=== PATIENT | female | born 1950 | race Caucasian/White ===

== ENCOUNTER → 2018-05-12 16:20 | Outpatient (CLI) | payer MEDICARE, SELFPAY | PROVIDERS: Family Provider Family Medicine; PCP Family Medicine; Visit Provider Urology | DX: R33.9 Retention of urine, unspecified (principal) | CPT/HCPCS: 76770 ==

== ENCOUNTER 2018-06-22 09:28 | Day surgery (SDC) | payer MEDICARE, SELFPAY ==
[2018-06-22] VITALS (7 sets, daily range): BP systolic 117–168; BP diastolic 75–107; PULSE 81–101; RESP 16; TEMP 36.1–37.1; O2SAT 93; BMI 28.2
[2018-06-22 10:16] LABS: Bedside Glucose 139 mg/dL (70-110)
[2018-06-22] MEDS: Vancomycin IV 1,000 MG/200 ML BAG 200 MG IV (11:00)
--- NOTE | 2018-06-22 11:00 | RAD_ITS ---
STUDY: X-RAY - PELVIS REASON FOR EXAM: Female, 68 years old. Interstimulation therapy. TECHNIQUE: Fluoroscopy and 1 crosstable lateral view of the pelvis was obtained under direction, supervision and review of the attending physician. Fluoroscopy time: 15.3 seconds. Dose: 4.0 mGy COMPARISON: None available. FINDINGS: Fluoroscopy and single cross table lateral fluoroscopic image of the sacrum and coccyx show a neurostimulator wire with electrodes overlying the mid and posterior sacrum and projecting over the bowel gas of the rectosigmoid colon. Radiologist not present intraoperatively. Please see operative report for details. RAD/Pelvis 1 or 2 Views IMPRESSION: Please see operative report for details. Electronically Signed: Akshat Mares, at 15:33 EDT Tel , Service support ,
--- NOTE | 2018-06-22 11:15 | RAD_ITS ---
STUDY: X-RAY - PELVIS REASON FOR EXAM: Female, 68 years old. Interstimulation therapy. TECHNIQUE: Fluoroscopy and 1 crosstable lateral view of the pelvis was obtained under direction, supervision and review of the attending physician. Fluoroscopy time: 15.3 seconds. Dose: 4.0 mGy COMPARISON: None available. FINDINGS: Fluoroscopy and single cross table lateral fluoroscopic image of the sacrum and coccyx show a neurostimulator wire with electrodes overlying the mid and posterior sacrum and projecting over the bowel gas of the rectosigmoid colon. Radiologist not present intraoperatively. Please see operative report for details. RAD/O.R. Fluoro for C-Arm IMPRESSION: Please see operative report for details. Electronically Signed: Akshat Mares, at 15:33 EDT Tel , Service support ,
--- NOTE | 2018-06-22 12:48 | DCINST_ITS ---
Discharge Diet: No Restrictions Discharge Activity: May not drive while taking narcotic pain medications., - - no tub bathing. ok to sponge bathe. Call your doctor if your incision/area has: Continuous Slow Oozing, Sudden Increased Bleeding, Increased Pain/ Swelling, Increased Redness, Foul Smelling Discharge, Swelling at the incision site Call your doctor if you observe: Fever of 101 or Higher, Inability to have a bowel movement, Shortness of breath, Chest pain, Calf discomfort, Uncontrolled pain Suture Line Care: Avoid Pulling/Pushing, Avoid Pinching/Bending Allergies/Adverse Reactions: Allergies quinapril [From Accupril] Allergy (Verified 06/16/18 10:36) Rash Medications to take at Discharge Metformin HCl [Glucophage] 1 tab PO BID 09/26/17 Amlodipine Besylate [Norvasc] 10 mg PO DAILY 06/16/18 Cholecalciferol (Vitamin D3) [Vitamin D3] 2,000 unit PO DAILY 06/16/18 Hydrochlorothiazide [Hctz] 12.5 mg PO DAILY 06/16/18 Losartan Potassium [Cozaar] 100 mg PO DAILY 06/16/18 Cephalexin [Keflex] 500 mg PO Q12 3 Days #6 cap 06/22/18 Oxycodone HCl/Acetaminophen [Percocet 5/325] 1 - 2 tab PO Q6H PRN PRN 7 Days #30 tab 06/22/18 The following prescriptions were given: Oxycodone HCl/Acetaminophen [Percocet 5/325] 1 - 2 tab PO Q6H PRN PRN 7 Days #30 tab PRN Reason: Pain Cephalexin [Keflex] 500 mg PO Q12 3 Days #6 cap Primary Care Physician: Cabrera Taylor III, MD [Primary Care Provider] - Test Results: Test results from this visit will be discussed in further detail at your follow- up appointment, if applicable. Please Follow Up With: Emi Gallegos MD When: 2-3 days in office Proposed Discharge Date: 06/22/18
--- NOTE | 2018-06-22 13:04 | PCM.IMDPSTOP ---
Immediate Post-Op Note Date of Procedure: 06/22/18 Primary Surgeon/Physician: Emi Gallegos MD business development associate: Emi Gallegos Pre-Operative Diagnosis: urinary retention, urge incontinence, neurogenic bladder Post-Operative Diagnosis: same Surgery/Procedure Performed:: Interstim Stage 1 Description of Surgical Findings:: good tony on all 4 leads, no toe. Estimated Blood Loss: 5cc Specimen's removed: none Type of Anesthesia:: Local MAC - Admit VTE Documentation VTE Present on Admission: No VTE Pharm Prophylaxis ordered?: No
--- NOTE | 2018-06-24 18:10 | PCM.OPRPT ---
Problem List (1) Urinary retention Status: Acute (2) Neurogenic bladder Status: Acute (3) Urge incontinence Status: Acute Report of Operation Date of Procedure: 06/22/18 Pre-Operative Diagnosis: urinary retention, urge incontinence, neurogenic bladder Post-Operative Diagnosis: same Surgery/Procedure Performed:: Interstim Stage 1 Description of Surgical Findings:: good tony on all 4 leads, no toe. actuarial internship: Emi Gallegos Type of Anesthesia:: Local MAC Specimen's removed: none Estimated Blood Loss (mL): 5cc Description of Procedure: The patient is a 68-year-old female who came to my office for evaluation and treatment of urinary incontinence. After undergoing urodynamics, pelvic examination and cystoscopy, it was clear that the patient had a diagnosis of neurogenic bladder with urinary retention and urge incontinence. After discussing all the risks benefits and alternatives with the patient and her family, we decided to proceed with a trial of InterStim. The patient was taken to the operating room and placed in the prone position in the operating room table. All dependent portions of her body were appropriately padded and she was secured to the table. Anesthesia monitored the head neck airway IV access and vital signs throughout the case. Once anesthesia was appropriately administered the patient was prepped and draped in usual sterile fashion. At this time using fluoroscopic visualization, the S3 foramen was identified and intubated using the needle. It was stimulated in a good tony response was obtained. The obturator was placed into the needle which was then removed. A small incision was made around the guide and the dilator was then used to dilate an area appropriate for the placement of the lead. At this time the obturator from the dilator was removed and the lead was inserted in a twisting fashion. All 4 leads were tested and a good tony response without toe response was obtained. At this time the sheath was removed leaving the lead in its permanent location. Fluoroscopic evaluation revealed minimal curvature to the lead however good response was achieved in all 4 leads. The location of the boot was then determined and anesthetized using lidocaine. A pocket was then formed using a knife and Bovie cautery. Hemostatic control was obtained. A tunneler was then used to place the wire into the area of the pocket. The boot was attached and the lead was secured into position in the lead extension. This was closed using Prolene. The lead extension was then turned tunneled in a cephalad position and was then attached to the temporary battery. This was secured in an appropriate fashion to the patient's back. Patient was then awakened and taken to the recovery room in good condition. There were no complications during this procedure. Grafts/Implants Used: Interstim Stage 1 - Complications none - Admit VTE Documentation VTE Present on Admission: No VTE Mechan Device Prophylaxis: None VTE Pharm Prophylaxis ordered?: No Reason prophylaxis not ordered:: Treatment Not Indicated
== END 2018-06-22 14:22 | disposition home or self-care (01) ==
LOC: SDC 09:30 → AC 09:31
PROVIDERS: Family Provider Family Medicine; PCP Family Medicine; Referring Provider Urology; Visit Provider Urology
PROC: (CPT 64581; principal; 2018-06-22 10:45)
DX: N31.9 Neuromuscular dysfunction of bladder, unspecified (principal); N39.41 Urge incontinence; R33.9 Retention of urine, unspecified; R35.0 Frequency of micturition; R35.1 Nocturia; N28.1 Cyst of kidney, acquired; I10 Essential (primary) hypertension; E11.9 Type 2 diabetes mellitus without complications; F17.200 Nicotine dependence, unspecified, uncomplicated; Z79.84 Long term (current) use of oral hypoglycemic drugs; Z79.82 Long term (current) use of aspirin; Z79.899 Other long term (current) drug therapy; Z86.73 Personal history of transient ischemic attack (TIA), and cerebral infarction without residual deficits
CPT/HCPCS: 64581; 72170; 76000; 82962; J7120; C1778

== ENCOUNTER 2018-07-06 06:12 | Day surgery (SDC) | payer MEDICARE, SELFPAY ==
[2018-07-06] VITALS (7 sets, daily range): BP systolic 104–126; BP diastolic 54–89; PULSE 81–90; RESP 16–18; TEMP 36.6–36.7; O2SAT 92–95; BMI 28.2
[2018-07-06 07:11] LABS: Bedside Glucose 133 mg/dL (70-110)
[2018-07-06] MEDS: Vancomycin IV 1,000 MG/200 ML BAG 200 MG IV (07:56)
--- NOTE | 2018-07-06 09:21 | DCINST_ITS ---
Discharge Diet: No Restrictions Discharge Activity: May Shower Additional Activity Instructions:: no swimming or tub bathing, no hot tubs. minimal twisting and bending for the next week Call your doctor if your incision/area has: Continuous Slow Oozing, Sudden Increased Bleeding, Increased Pain/ Swelling, Increased Redness, Foul Smelling Discharge, Swelling at the incision site Call your doctor if you observe: Fever of 101 or Higher, Inability to urinate, I nability to have a bowel movement Suture Line Care: Avoid Pulling/Pushing Allergies/Adverse Reactions: Allergies quinapril [From Accupril] Allergy (Verified 06/16/18 10:36) Rash Medications to take at Discharge Metformin HCl [Glucophage] 1 tab PO BID 09/26/17 Amlodipine Besylate [Norvasc] 10 mg PO DAILY 06/16/18 Cholecalciferol (Vitamin D3) [Vitamin D3] 2,000 unit PO DAILY 06/16/18 Hydrochlorothiazide [Hctz] 12.5 mg PO DAILY 06/16/18 Losartan Potassium [Cozaar] 100 mg PO DAILY 06/16/18 Cephalexin [Keflex] 500 mg PO Q12 3 Days #6 cap 07/06/18 The following prescriptions were given: Cephalexin [Keflex] 500 mg PO Q12 3 Days #6 cap Primary Care Physician: Cabrera Taylor III, MD [Primary Care Provider] - Test Results: Test results from this visit will be discussed in further detail at your follow- up appointment, if applicable. Please Follow Up With: Emi Gallegos MD When: next week, call for appt Proposed Discharge Date: 07/06/18
--- NOTE | 2018-07-06 09:21 | PCM.IMDPSTOP ---
Immediate Post-Op Note Date of Procedure: 07/06/18 Primary Surgeon/Physician: Emi Gallegos MD trim master operator: andrew Pre-Operative Diagnosis: Urinary retention , urinary urge incontinence, nocturia. Post-Operative Diagnosis: same Surgery/Procedure Performed:: Interstim Stage 2 Description of Surgical Findings:: IPG placed in pocket. Question of extension wire not identified when drapes removed, not seen on fluouroscopy of the patient. Estimated Blood Loss: 2cc Specimen's removed: none Type of Anesthesia:: Local MAC Special Medications: vancomycin - Admit VTE Documentation VTE Present on Admission: Yes VTE Mechan Device Prophylaxis: SCD's VTE Pharm Prophylaxis ordered?: No Reason prophylaxis not ordered:: Treatment Not Indicated
--- NOTE | 2018-07-06 09:26 | OP.PN_ITS ---
Immediate Post-Op Note Date of Procedure: 07/06/18 Primary Surgeon/Physician: Emi Gallegos MD last dipper: andrew Pre-Operative Diagnosis: Urinary retention , urinary urge incontinence, nocturia. Post-Operative Diagnosis: same Surgery/Procedure Performed:: Interstim Stage 2 Description of Surgical Findings:: IPG placed in pocket. Question of extension wire not identified when drapes removed, not seen on fluouroscopy of the patient. Estimated Blood Loss: 2cc Specimen's removed: none Type of Anesthesia:: Local MAC Special Medications: vancomycin - Admit VTE Documentation VTE Present on Admission: Yes VTE Mechan Device Prophylaxis: SCD's VTE Pharm Prophylaxis ordered?: No Reason prophylaxis not ordered:: Treatment Not Indicated
--- NOTE | 2018-07-06 09:28 | PCM.OPRPT ---
Problem List (1) Nocturia Status: Acute (2) Neurogenic bladder Status: Acute (3) Urge incontinence Status: Acute (4) Urinary retention Status: Acute Report of Operation Date of Procedure: 07/06/18 Pre-Operative Diagnosis: Urinary retention , urinary urge incontinence, nocturia. Post-Operative Diagnosis: same Surgery/Procedure Performed:: Interstim Stage 2 Description of Surgical Findings:: IPG placed in pocket. Question of extension wire not identified when drapes removed, not seen on fluouroscopy of the patient. educational therapist: andrew Type of Anesthesia:: Local MAC Special Medications: vancomycin Specimen's removed: none Estimated Blood Loss (mL): 2cc Description of Procedure: The patient is a 68-year-old female who successfully passed stage I InterStim over the past 2 weeks. She has had a decrease in her postvoid residual down to 64 cc. She has had extremely successful decrease in her nocturia and urge incontinence as well. She presents today for implantation of her permanent IPG. All risks benefits and alternatives were discussed preoperatively with the patient and her daughter. The patient was taken to the operating room and placed on the operating room table in a prone position. She was appropriately secured to the table and all dependent portions of her body were padded appropriately. Anesthesia monitored the head, neck, airway, IV access and vital signs throughout the case. Once anesthesia was appropriately administered the patient was prepped and draped in usual sterile fashion. The lead extension was prepped and was draped out of the field. The temporary battery had been cut from the extension wire prior to prepping. At this time the incision was anesthetized with lidocaine a total of 14 cc was used. The incision was then opened using hemostats and Metzenbaums to cut the Vicryl sutures. The boot was identified and the sutures were removed. Using the torque wrench the lead extension was removed without difficulty and taken from the field. The pocket was increased in size using both blunt dissection and Bovie cautery. Hemostatic control was achieved. The lead was dried and placed into the IPG and screwed into position. The IPG was then passed into the pocket without difficulty and impedances were found to be none. The pocket was closed with both 3-0 interrupted suture in the deep dermis followed by 4-0 subcuticular closure of the wound. The area was then cleaned and dried and Dermabond was placed. At this time the drapes were removed and the lead extension wire was not identified. It was palpable beneath the patient's skin. Fluoroscopy was brought into the room and it was not identifiable within the patient. The drapes were searched and the lead extension was not identified. The patient was then awakened and taken to the recovery room in good condition. I discussed the matter of the lead extension with the patient's daughter. I will send her home on antibiotics and we will monitor her very closely for any evidence of infection or abnormality with IPG site. No other issues with the case. Grafts/Implants Used: IPG Interstim - Complications none - Admit VTE Documentation VTE Present on Admission: Yes VTE Mechan Device Prophylaxis: SCD's VTE Pharm Prophylaxis ordered?: No Reason prophylaxis not ordered:: Treatment Not Indicated
== END 2018-07-06 10:24 | disposition home or self-care (01) ==
LOC: SDC 06:15 → AC 06:16
PROVIDERS: Family Provider Family Medicine; PCP Family Medicine; Referring Provider Urology; Visit Provider Urology
PROC: (CPT 64590; principal; 2018-07-06 07:50)
DX: N31.9 Neuromuscular dysfunction of bladder, unspecified (principal); N39.41 Urge incontinence; R33.9 Retention of urine, unspecified; R35.1 Nocturia; I10 Essential (primary) hypertension; E78.00 Pure hypercholesterolemia, unspecified; E11.9 Type 2 diabetes mellitus without complications; F17.200 Nicotine dependence, unspecified, uncomplicated; Z79.82 Long term (current) use of aspirin; Z79.84 Long term (current) use of oral hypoglycemic drugs; Z79.899 Other long term (current) drug therapy; Z86.73 Personal history of transient ischemic attack (TIA), and cerebral infarction without residual deficits
CPT/HCPCS: 00400; 64590; 76000; 82962; J7120; C1767

== ENCOUNTER 2018-09-08 00:03 | Inpatient (IN) | payer MEDICARE, SELFPAY ==
[2018-09-08] VITALS (13 sets, daily range): BP systolic 93–156; BP diastolic 53–90; PULSE 65–102; RESP 16–22; TEMP 36.3–37.2; O2SAT 92–98; BMI 28.6; BMI 28.7
[2018-09-08] MEDS: fentaNYL 100 MCG/2 ML Ampul 25 MCG IV ×2 (00:48→03:23)
--- NOTE | 2018-09-08 01:20 | RAD_ITS ---
HISTORY: FALL LAST NIGHT. PROXIMAL-MID LEFT ARM PAIN. COMPARISON: None FINDINGS: XR left Humerus Min 2 Views: Generalized bony demineralization. Recent fracture of the proximal left humerus at the greater tuberosity region is suspected. The left humeral neck appears intact. No dislocation. The distal left humerus is intact. RAD/Humerus min 2 Views IMPRESSION: 1. Recent fracture of the greater tuberosity region of the proximal left humerus is suspected. 2. Recommend more detailed exam with formal left shoulder exam. at 0217 Reported and signed by: Travis Carmichael MD Electronically Signed: Travis Carmichael, at 2:16 EST Tel , Service support ,
--- NOTE | 2018-09-08 01:20 | RAD_ITS ---
HISTORY: FALL LAST NIGHT EXAM: XR Chest 1 View: COMPARISON: None FINDINGS: Shallow inspiration. Normal heart size. No vascular congestion, pleural effusion, or acute pulmonary infiltration. No pneumothorax. Atherosclerotic thoracic aorta. IMPRESSION: No acute cardiopulmonary disease. at 0213 Reported and signed by: Travis Carmichael MD Electronically Signed: Travis Carmichael, at 2:12 EST Tel , Service support , RAD/Chest 1 View
--- NOTE | 2018-09-08 01:20 | RAD_ITS ---
HISTORY: FALL LAST NIGHT. LEFT LEG PAIN. COMPARISON: None FINDINGS: XR left tibia/fibula 3 views Generalized bony demineralization. No fracture or dislocation. Calcified vein phlebolith and benign soft tissue calcifications. IMPRESSION: Negative for fracture or acute osseous abnormality. at 0209 Reported and signed by: Travis Carmichael MD Electronically Signed: Travis Carmichael, at 2:07 EST Tel , Service support , RAD/Tibia & Fibula 2 Views
--- NOTE | 2018-09-08 01:20 | RAD_ITS ---
HISTORY: FALL LAST NIGHT. PROXIMAL LEFT HIP PAIN COMPARISON: None FINDINGS: AP Pelvis: 1 view. Generalized bony demineralization. Acute, mildly displaced intertrochanteric fracture of the proximal left femur. No hip dislocation. The right hip appears intact. The SI joints are not widened. Focal soft tissue calcification at the upper margin of the left greater trochanter compatible with chronic trochanteric bursitis. Sacral neurostimulator electrode with left side metallic generator which overlies the left ilium. The electrode appears intact. RAD/Pelvis 1 or 2 Views IMPRESSION: Mildly displaced left intertrochanteric fracture. at 0200 Reported and signed by: Travis Carmichael MD Electronically Signed: Travis Carmichael, at 1:59 EST Tel , Service support ,
--- NOTE | 2018-09-08 01:20 | RAD_ITS ---
HISTORY: FALL LAST NIGHT. PROXIMAL LEFT HIP PAIN. COMPARISON: None FINDINGS: XR left femur 4 views Mildly displaced intertrochanteric fracture of the proximal left femur. No hip dislocation. Intact distal left femur. Left hemipelvis sacral neurostimulator in place. Focal soft tissue calcification at the upper margin of the left greater trochanter compatible with chronic calcific trochanteric bursitis. Atherosclerotic calcifications. RAD/Femur Min 2 Views IMPRESSION: 1. Mildly displaced intertrochanteric fracture of the proximal left femur. 2. Additional chronic changes, details above. at 0205 Reported and signed by: Travis Carmichael MD Electronically Signed: Travis Carmichael, at 2:03 EST Tel , Service support ,
--- NOTE | 2018-09-08 01:55 | EKG12_ITS ---
Test Reason : FALL Blood Pressure : / mmHG Vent. Rate : 092 BPM Atrial Rate : 092 BPM P-R Int : 144 ms QRS Dur : 088 ms QT Int : 392 ms P-R-T Axes : 101 055 079 degrees QTc Int : 484 ms Sinus rhythm with Premature supraventricular complexes Nonspecific T wave abnormality Abnormal ECG Confirmed by BETTY SAUCEDO, CARLOS ([id number]), primer expeditor and drier MARISSA CHUNG ([id number]) on 09/10/2018 3:22:27 PM Referred By: MARIBELL Confirmed By:CARLOS HERNÁNDEZ MD
[2018-09-08 02:13] LABS: Absolute Lymphocyte Count 2.21 X10^3/ul (0.83-4.51); Absolute Neutrophil Count 4.1 X10^3/uL (2.0-7.7); Basophil# 0.04 X10^3/uL; Basophil% 0.5 % (0-1); Eosinophil# 0.21 X10^3/uL; Eosinophils% 2.9 % (0-5); Hematocrit 42.9 % (37-47); Lymphocyte # 2.21 X10^3/ul (4.0); Lymphocyte % 30.3 % (19-41); Mean Corpuscular Hgb 32.8 pg (27.0-32.0); Mean Corpuscular Volume 93.7 fL (81-99); Mean Platelet Vol. 11.5 fl (6.2-12.0); Monocyte# 0.68 X10^3/uL; Monocyte% 9.3 % (0-10); Neutrophil # 4.13 X10^3/uL (2.7-7.7); Neutrophil % 56.6 % (47-70); Platelet Count 253 K/mm3 (150-450); RBC Distribution Width CV 13.2 % (11.6-14.6); RBC Distribution Width SD 43.8 fl (35.1-43.9); Red Blood Count 4.58 M/mm3 (4.2-5.4); White Blood Count 7.3 K/mm3 (4.4-11.0)
[2018-09-08 02:14] LABS: POSITIVE COUNT NO; POSITIVE DIFFERENTIAL NO; POSITIVE MORPHOLOGY NO
[2018-09-08 02:15] LABS: International Normalized Ratio 0.9; Prothrombin Time (Protime)PT. 12.3 SECONDS (11.7-14.9)
[2018-09-08 02:16] LABS: Partial Thromboplast Time 37.3 Seconds (24.1-36.2)
[2018-09-08 02:22] LABS: BUN 15 mg/dL (7-18); Creatinine, Serum 0.58 mg/dL (0.55-1.02); EST Glomerular Filtration Rate 109 mL/min (>60); Estimated Creatinine Clearance 45.85 ml/min; Glucose 124 mg/dL (74-106)
[2018-09-08 02:23] LABS: Anion Gap 9 (5-15); BUN/Creat Ratio 25.8 RATIO (10-20); Chloride 101 mmol/L (98-107); Est Glom Filt Rate - Afr Amer 132 mL/min (>60); Potassium 3.7 mmol/L (3.5-5.1); Sodium Level 139 mmol/L (136-145)
--- NOTE | 2018-09-08 02:36 | ED.DCSUM_ITS ---
- ER Visit Summary Date of Service: 09/08/18 Chief Complaint: Fall History of Present Illness: The patient is a 68 F who was standing in her kitchen tonight and bent over to sampler pickup her cane off the floor and fell backwards. She has pain in her left arm and left leg. She did not get up and ambulate. She did strike her head but denies headache or vision changes. Physical Examination: Vital signs grossly unremarkable. Patient is lying in bed no acute distress. Head neck examination reveals no external sign of trauma. Heart is regular rate and rhythm. Lung sounds are with mild expiratory wheezes. Abdomen is soft nontender. Left upper extremity examination reveals tenderness of the proximal humerus. No tenderness over the clavicle. There is no tenderness of the elbow, forearm, wrist, or hand. She has strong distal pulses and can wiggle fingers. Left lower extreme examination was tenderness in the mid left thigh. She has strong distal pulses. She does have pain with logrolling. Test Results: Chest x-ray shows no acute disease. Left humerus shows a recent fracture of the greater tuberosity of the proximal humerus to be suspected. Pelvis x-ray shows a mildly displaced left intertrochanteric fracture. Left femur x-ray shows the same with no other acute findings. Left tib-fib x-ray shows no acute fracture. EKG is sinus at 92 with lateral T wave flattening. CBC and chemistry studies unremarkable. Coags normal. Emergency Department Course and Treatment: Patient was given fentanyl and Zofran. Test results are discussed with patient and family at bedside. She will be placed in a sling and swath. I will speak with orthopedics as well as hospitalist for admission. Treatment Plan: [] Disposition: Admit Impression: 1. Mechanical fall 2. Left greater tuberosity humerus fracture 3. Left intertrochanteric hip fracture This note was generated with [employer] dictation software. It may contain incorrect words, spelling, and punctuation that were not noted in review of the chart prior to signing ED Disposition - Plan for ED Patient: Chief Complaint: Fall Referrals: Cabrera Taylor III, MD [Primary Care Provider] -
--- NOTE | 2018-09-08 02:40 | PCM.HP.STD ---
Problem List (1) Intertrochanteric fracture of left hip Status: Acute (2) Left humeral fracture Status: Suspected (3) HTN (hypertension) Status: Chronic History of Present Illness Date of Admission: 09/08/18 Chief Complaint: Fall The patient is a 68 year old F with a significant history of hypertension; diabetes; neurogenic bladder who presented with a fall. Patient was walking with a cane. Headache came failed seton around bent down to get her cane and then fell backwards hitting her left side onto a counter. Reportedly she hit her head. She reports excruciating pain in her left arm and the left hip. X-ray showed mildly displaced intertrochanteric fracture of the proximal left femur. Left humerus x-ray was suspicious for fracture of greater tuberosity. Emergency department doctor discussed the case with orthopedic surgery, Dr. Vasquez. Per emergency department doctor, Dr. Kapoor, orthopedic surgeon will see patient in a.m. Past Medical History Past Medical History (Chronic Problems): Chronic Problems (Last Updated 09/08/18 @ 03:35 by Dc Reeder MD) HTN (hypertension) (Chronic) Medical History: Medical History (Last Reviewed 09/08/18 @ 03:58 by Dc Reeder MD) Diabetes E11.9 Neurogenic bladder N31.9 Allergies quinapril [From Accupril] Allergy (Verified 09/08/18 00:04) Rash Home Medications: Ambulatory Orders Medication Instructions Recorded Metformin HCl [Glucophage] 1 tab PO BID 09/26/17 Amlodipine Besylate [Norvasc] 10 mg PO DAILY 06/16/18 Cholecalciferol (Vitamin D3) 2,000 unit PO DAILY 06/16/18 [Vitamin D3] Hydrochlorothiazide [Hctz] 12.5 mg PO DAILY 06/16/18 Losartan Potassium [Cozaar] 100 mg PO DAILY 06/16/18 Naproxen 500 mg PO QHS 09/08/18 Rosuvastatin Calcium 5 mg PO QHS 09/08/18 Surgical History: - - Bladder Surgery x2; right carotid endarectomy; and bladder stimulator placed at back Lives: Spouse/ Significant Other Smoking Status: Current every day smoker Alcohol: None - *Family History Maternal Family History: Family History (Last Reviewed 09/08/18 @ 03:59 by Dc Reeder MD) Mother Tuberculosis Review of Systems Constitutional: Denies: Chills, Fever, Weight Change HEENT: Denies: Head Aches, Sinus Congestion, Sinus Drainage Cardiovascular: Denies: Chest Pain, Palpitations Respiratory: Denies: Cough, Shortness of breath at rest, Sputum production Gastrointestinal: Denies: Abdominal Pain, Nausea, Vomiting Genitourinary: Denies: Dysuria Musculoskeletal: Reports: Arm Pain - left arm, Joint Pain - left hip, Leg Pain. Denies: Joint Tenderness Skin: Denies: Rash, Wounds Neurological: Denies: Numbness, Tingling, Focal weakness Psychiatric: Denies: Anxiety, Depression, Homicidal Ideations, Suicidal Ideations Hematologic/ Lymphatic: Denies: Easy Bruising, Easy Bleeding VTE Information - Inpt Only VTE Present on Admission: No VTE Mechan Device Prophylaxis: None VTE Pharm Prophylaxis ordered?: Yes Patient Problems: Active and Suspected Problems (Last Updated 09/08/18 @ 03:35 by Dc Reeder MD) Intertrochanteric fracture of left hip (Acute) Left humeral fracture (Suspected) - Physical Exam General: Alert, Oriented x3, Cooperative HEENT: Atraumatic, PERRLA, EOMI, Normocephalic Neck: Supple, No JVD, Negative Carotid Bruits Lungs: Clear to auscultation, Normal air movement Cardiovascular: Regular rate, No murmurs Abdomen: Bowel Sounds Present, Soft, Non Tender Extremities: No edema, Capillary Refill Less than 3 Seconds, Tenderness - left hip pain; and left arm pain Skin: No rashes, No breakdown Musculoskeletal: No Muscle Wasting Neurological: Neuro grossly intact Psych/Mental Status: Normal Affect, Appropriate Vital Signs Temp Pulse Resp BP Pulse Ox 98.3 F 95 16 151/90 H 93 09/08/18 00:05 09/08/18 00:05 09/08/18 00:05 09/08/18 00:05 09/08/18 00:05 Oxygen Delivery Method Room Air Weight: 75.75 kg Body Mass Index (BMI) 28.6 Laboratory Tests Past 24 Hrs 09/08/18 09/08/18 09/08/18 02:05 02:05 02:05 WBC 7.3 RBC 4.58 Hgb 15.0 Hct 42.9 MCV 93.7 MCH 32.8 H MCHC 35.0 RDW 13.2 RDW Differential 43.8 Plt Count 253 MPV 11.5 Immature Gran % (Auto) 0.400 Neut % (Auto) 56.6 Lymph % (Auto) 30.3 [place] % (Auto) 9.3 Eos % (Auto) 2.9 Baso % (Auto) 0.5 Absolute Neuts (auto) 4.1 Absolute Lymphs (auto) 2.21 Total Counted Not Reportable PT 12.3 INR 0.9 APTT 37.3 H Sodium 139 Potassium 3.7 Chloride 101 Carbon Dioxide 29.0 Anion Gap 9 BUN 15 Creatinine 0.58 Estim Creat Clear Calc 45.85 Est GFR (MDRD) Af Amer 132 Est GFR (MDRD) Non-Af 109 BUN/Creatinine Ratio 25.8 H Glucose 124 H Calcium 9.0 Assessment/Plan All Active Problems (Last Updated 09/08/18 @ 03:35 by Dc Reeder MD) Urinary retention (Acute) Neurogenic bladder (Acute) Urge incontinence (Acute) Nocturia (Acute) Intertrochanteric fracture of left hip (Acute) The patient is a 68 year old F with a significant history of hypertension; diabetes; neurogenic bladder who presented with a mechanical fall and found to have radiographic evidence of mild displaced intertrochanteric fracture of the proximal left femur; and suspected acute fracture of greater tuberosity. Displaced intertrochanteric fracture of the proximal left femur Femur x-ray and pelvis x-ray confirmed mild displaced intertrochanteric fracture of the proximal left femur. Patient received morphine at the emergency department Morphine continued. IV antiemetics, Zofran ordered. Stool softness in the setting of receiving narcotics. Continue vitamin D supplements. We will check vitamin D level. Orthopedic consult placed. We will put the patient n.p.o. in preparation for possible surgery. Suspected acute fracture of greater tuberosity Emergency department doctor to put a sling and swathe. Pain control as above Orthopedic consult. Hypertension On admission blood pressure was not within goal. Hydrochlorothiazide and Cozaar continued Trend blood pressure and adjust blood pressure medication. Diabetes mellitus Blood glucose on admission was 124; which was within goal. Patient is on home metformin 500 mg twice daily. We will hold home metformin and put patient on low dose correction scale. Anticipate the patient's may not require any insulin while on this scale. Tobacco abuse Patient expresses desire to go outside and smoke while at the emergency department. However because of the her hip fracture she was not allowed since she would have to go outside by herself to smoke. Patient refused nicotine patch. Patient was counseled. Inpatient consult to smoking cessation. DVT prophylaxis Subcutaneous heparin. Code Visit Inpatient E&M: 12280 Init Hosp L3
--- NOTE | 2018-09-08 04:05 | RAD_ITS ---
HISTORY: FALL LAST NIGHT. LEFT SHOULDER PAIN COMPARISON: None FINDINGS: XR left shoulder 4 views Fracture of the left humeral head and neck with an impacted fracture of the surgical neck and a mildly comminuted fracture at the greater tuberosity region. No dislocation. The glenohumeral relationship appears normal. Left AC joint is preserved. RAD/Shoulder min 2 Views IMPRESSION: 1. Impacted fracture of the left humeral surgical neck together with mildly comminuted fracture of the greater tuberosity region of the humeral head. at 0518 Reported and signed by: Travis Carmichael MD Electronically Signed: Travis Carmichael, at 5:17 EST Tel , Service support ,
[2018-09-08] MEDS: Morphine 2 MG/ML Syringe IV ×2 (04:59→07:24)
--- NOTE | 2018-09-08 06:50 | RAD_ITS ---
STUDY: X-RAY - LEFT HIP REASON FOR EXAM: Female, 68 years old. Darrian placement and left hip. TECHNIQUE: 5 fluoroscopic spot views of the hip and femur. FLUOROSCOPY TIME: Information was not provided. COMPARISON: None. FINDINGS: Fluoroscopic images were submitted, as radiology support for c-arm imaging in the operating room. This is not a diagnostic examination. Images are for documentation purposes only. RAD/Hip Min 2 Views (Portable) IMPRESSION: As above. Electronically Signed: Shaheed Moses MD at 4:51 EST , Service support ,
[2018-09-08] MEDS: 0.9% NaCl Peripheral Flush Adult/Peds IV ×2 (07:24→11:25)
[2018-09-08 07:32] LABS: Hemoglobin A1c 6.2 % (4.2-6.3)
[2018-09-08 08:49] LABS: Vitamin D,25 Hydroxy 21.1 ng/mL (29.95-100.01)
[2018-09-08] MEDS: Acetaminophen 325 MG Tablet 650 MG PO (09:08)
[2018-09-08] MEDS: Losartan Potassium 100 MG Tablet PO (09:09)
[2018-09-08] MEDS: Senna/Docusate Sodium 1 Tablet PO ×2 (09:09→23:53)
[2018-09-08] MEDS: 0.9% Normal Saline 1,000 ML 100 ML IV (11:24)
[2018-09-08] MEDS: Morphine 4 MG/ML Syringe IV (11:24)
[2018-09-08 13:01] LABS: Bedside Glucose 113 mg/dL (70-110)
[2018-09-08] MEDS: Cefazolin 2 GM in 0.9% Normal Saline 100 ML IV (16:19)
--- NOTE | 2018-09-08 17:52 | PCM.IMDPSTOP ---
Immediate Post-Op Note Date of Procedure: 09/08/18 Primary Surgeon/Physician: Caden Kapoor DO financial planning adviser: Michael Del Valle Pre-Operative Diagnosis: Comminuted left hip fracture, imtertrochanteric with subtrochanteric extension Post-Operative Diagnosis: same Surgery/Procedure Performed:: ORIF left hip with Intertan nail Description of Surgical Findings:: see op note Estimated Blood Loss: 100cc Specimen's removed: none Type of Anesthesia:: General ASA Class: ASA3 Plus Emergency - Admit VTE Documentation VTE Present on Admission: No VTE Mechan Device Prophylaxis: SCD's, Thigh High AKILAH Hose VTE Pharm Prophylaxis ordered?: Yes
--- NOTE | 2018-09-08 17:55 | OP.PN_ITS ---
Immediate Post-Op Note Date of Procedure: 09/08/18 Primary Surgeon/Physician: Caden Kapoor DO store team leader: Michael Del Valle Pre-Operative Diagnosis: Comminuted left hip fracture, imtertrochanteric with subtrochanteric extension Post-Operative Diagnosis: same Surgery/Procedure Performed:: ORIF left hip with Intertan nail Description of Surgical Findings:: see op note Estimated Blood Loss: 100cc Specimen's removed: none Type of Anesthesia:: General ASA Class: ASA3 Plus Emergency - Admit VTE Documentation VTE Present on Admission: No VTE Mechan Device Prophylaxis: SCD's, Thigh High AKILAH Hose VTE Pharm Prophylaxis ordered?: Yes
--- NOTE | 2018-09-08 17:57 | OP.PCM_ITS ---
Operative Report Date of Procedure: 09/08/18 Primary Surgeon/Physician: Caden Kapoor roundhouse supervisor: roundhouse supervisor: Pre-Operative Diagnosis: Post-Operative Diagnosis: same Surgery/Procedure Performed: Estimated Blood Loss: Specimen's Removed: Type of Anesthesia: ASA Class: Implants: Procedure Description: The patient was greeted in the preoperative area. The [left ] lower extremity was marked with surgical marker. Preoperative antibiotics were administered. The patient was then placed in supine position on a fracture table, a padded perineal post was utilized, all bony prominences were well-padded. Patient's leg was then secured in the fracture leg pride and the well leg was placed in the well-leg pride both were well-padded. Closed reduction maneuver was then performed under biplanar fluoroscopic imaging. Once anatomic alignment of the fracture was confirmed the leg was prepped and draped in usual sterile fashion. Surgical timeout was performed and surgery was commenced. Fluoroscopic imaging was used to identify the tip of the greater trochanter. A 3 cm incision was then made 3 cm above the tip of the greater trochanter and a guidepin was then placed at the junction of the anterior one third and posterior two thirds of the greater trochanter. This was then placed intramedullary. an opening reamer was then used and a ball-tipped guidewire was then placed to the superior pole of the patella and measured. Sequential reaming was then commenced over the ball-tipped guidewire to the appropriate diameter and where chatter was identified. Appropriate size InterTAN was then placed on the guide handle on the operating table and confirmed to be appropriately placed. This was then inserted into the body over the ball-tipped guidewire to the appropriate depth. A stab incision was then made on lateral aspect of the thigh for placement of the lag screw which was then placed in center-center position confirmed in both AP and lateral. This was then measured. A derotational step drill was then used and a derotation bar was then placed. Lag screw reamer was then used over the guidepin and the lag screw was then placed into subchondral bone with tip to apex distance less than 25 mm on both the AP and lateral. The insertion handle was then removed after the compression screw was applied. Attention was then turned to the distal fixation. A perfect [place] technique was used and a screw was then placed from lateral to medial through the eccentric hole distally. This was drilled measured and a screw was placed with excellent purchase. Final imaging was obtained with fluoroscopic imaging AP and lateral. The wounds were then irrigated with copious irrigation and closed in layers with 2-0 Vicryl and surgical blanca. A well-padded nonadherent dressing is applied patient was taken to recovery room in stable condition. My printer floor covering assistant, Mr. Del Valle, was vital to the completion of this procedure. He assisted with positioning the patient, providing optimal visualization through retraction and he closed the operative wounds. Postoperatively patient may be weightbearing as tolerated without restrictions
[2018-09-08 18:18] LABS: PTHIN 56.5 pg/mL (18.4-80.1)
[2018-09-08 18:26] LABS: Thyroid Stim Hormone (TSH) 3.05 uIU/mL (0.358-3.74)
[2018-09-08 18:40] LABS: Bedside Glucose 156 mg/dL (70-110)
[2018-09-08] MEDS: Cefazolin 1 GM/50 ML BAG IV (23:51)
[2018-09-08] MEDS: amLODIPine 10 MG Tablet PO (23:53)
[2018-09-08] MEDS: Atorvastatin Calcium 10 MG Tablet PO (23:53)
[2018-09-09] VITALS (9 sets, daily range): BP systolic 114–136; BP diastolic 63–85; PULSE 93–118; RESP 18–22; TEMP 36.9–38.1; O2SAT 86–97
[2018-09-09 00:05] LABS: Bedside Glucose 131 mg/dL (70-110)
[2018-09-09] MEDS: 0.9% Normal Saline 1,000 ML 100 ML IV ×3 (01:10→21:51)
[2018-09-09] MEDS: Morphine 2 MG/ML Syringe IV (02:28)
[2018-09-09] MEDS: 0.9% NaCl Peripheral Flush Adult/Peds IV ×3 (02:28→06:59)
[2018-09-09] MEDS: oxyCODONE 5 MG Tablet PO ×3 (04:11→20:23)
[2018-09-09] MEDS: Acetaminophen 325 MG Tablet 650 MG PO ×2 (04:12→16:32)
[2018-09-09] MEDS: Enoxaparin 40 MG/0.4 ML Syringe SC (05:20)
[2018-09-09] MEDS: Morphine 4 MG/ML Syringe IV (05:21)
[2018-09-09 05:40] LABS: Bedside Glucose 139 mg/dL (70-110)
[2018-09-09] MEDS: Ketorolac 15 MG/ML Vial IV ×2 (06:59→14:49)
[2018-09-09 08:43] LABS: Absolute Lymphocyte Count 1.71 X10^3/ul (0.83-4.51); Absolute Neutrophil Count 6.6 X10^3/uL (2.0-7.7); Basophil# 0.02 X10^3/uL; Basophil% 0.2 % (0-1); Eosinophil# 0.04 X10^3/uL; Eosinophils% 0.4 % (0-5); Hematocrit 33.3 % (37-47); Hemoglobin 10.9 g/dl (12.0-15.0); Lymphocyte # 1.71 X10^3/ul (4.0); Lymphocyte % 18.5 % (19-41); Mean Corp Hgb Conc 32.7 g/gl (32-36); Mean Corpuscular Hgb 32.1 pg (27.0-32.0); Mean Corpuscular Volume 97.9 fL (81-99); Mean Platelet Vol. 10.1 fl (6.2-12.0); Monocyte# 0.88 X10^3/uL; Monocyte% 9.5 % (0-10); Neutrophil # 6.58 X10^3/uL (2.7-7.7); Neutrophil % 71.3 % (47-70); Platelet Count 191 K/mm3 (150-450); RBC Distribution Width CV 13.4 % (11.6-14.6); RBC Distribution Width SD 46.2 fl (35.1-43.9); White Blood Count 9.2 K/mm3 (4.4-11.0)
[2018-09-09 08:52] LABS: POSITIVE COUNT NO; POSITIVE DIFFERENTIAL NO; POSITIVE MORPHOLOGY NO
[2018-09-09 08:53] LABS: BUN 15 mg/dL (7-18); Creatinine, Serum 0.48 mg/dL (0.55-1.02); EST Glomerular Filtration Rate 138 mL/min (>60); Estimated Creatinine Clearance 45.85 ml/min; Glucose 116 mg/dL (74-106)
[2018-09-09 08:54] LABS: Anion Gap 7 (5-15); BUN/Creat Ratio 31.6 RATIO (10-20); Calcium,Total 7.6 mg/dL (8.5-10.1); Chloride 106 mmol/L (98-107); Est Glom Filt Rate - Afr Amer 167 mL/min (>60); Potassium 3.8 mmol/L (3.5-5.1); Sodium Level 139 mmol/L (136-145)
[2018-09-09] MEDS: Cefazolin 1 GM/50 ML BAG IV (09:03)
[2018-09-09] MEDS: Losartan Potassium 100 MG Tablet PO (09:59)
[2018-09-09] MEDS: Senna/Docusate Sodium 1 Tablet PO ×2 (09:59→20:25)
[2018-09-09] MEDS: hydroCHLOROthiazide 12.5mg 12.5 MG PO (09:59)
--- NOTE | 2018-09-09 11:07 | CASEMGMT ---
Social Work Note Pt had hip fracture and pelvic fracture and had surgery yesterday. SW met with pt to discuss discharge plans. SW introduced self and role at [facility]. Pt is alert and orientated, but does have some confusion. Pt states that she lives with her and cat in a one story home. Pt states that she was previously independent and her is able to assist when needed. Pt states there are no steps to enter and DME include cane and walker. SW informed pt that typically after hip fracture, pt will need short term rehab at SNF. SW asked pt if she would be agreeable to SNF and pt states she is ready to go home. SW explained that once PT/OT works with pt this worker will come back and talk to pt again to determine appropriate discharge. Pt states that her will be coming in today. Plan: KELECHI Newman DATA MODELER, DE [employer]
--- NOTE | 2018-09-09 11:29 | PCM.PN.HOSP ---
Patient Problems: Active and Suspected Problems (Last Reviewed 09/08/18 @ 03:58 by Dc Reeder MD) Intertrochanteric fracture of left hip (Acute) Left humeral fracture (Suspected) Subjective: Still with pain in the extremity left upper extreme. Denies any shortness of breath, chest pain, fever, chills Vitals/I&O's: Vital Signs Temp Pulse Resp BP Pulse Ox 99.2 F H 94 18 114/65 90 09/09/18 08:52 09/09/18 08:52 09/09/18 08:52 09/09/18 08:52 09/09/18 08:52 Oxygen Flow Rate (L/min) 3 Oxygen Delivery Method Nasal Cannula Weight: 166 lb 14.239 oz Body Mass Index (BMI) 28.6 Finger Stick Blood Glucose 156 Intake and Output for Last 24 Hours 09/07/18 09/08/18 09/09/18 23:59 23:59 23:59 Intake Total 1531 / 1531 1701 / 1701 Output Total 1150 / 1150 200 / 200 Balance 381 / 381 1501 / 1501 General: Alert, Oriented x3, Cooperative, No apparent distress, - - Hard of hearing HEENT: Atraumatic, EOMI, Normocephalic Oral: Moist Mucosa Neck: Supple, No JVD Lungs: Clear to auscultation, Normal air movement, No rhonchi, No wheeze, No rales Cardiovascular: Regular rate, Regular Rhythm, Normal S1, Normal S2, No murmurs Abdomen: Soft, Non Tender, Non-Distended, No Hepato-splenomegaly Extremities: No edema, Capillary Refill Less than 3 Seconds Skin: No rashes, No breakdown, Incision - Dressing intact Musculoskeletal: Tenderness - To left upper extremity which is in a sling Neurological: Neuro grossly intact, Sensory exam intact to light touch and pain Psych/Mental Status: Normal Affect, Appropriate Laboratory Results 09/08/18 02:09: TSH 3.05 09/08/18 02:09: PTH Intact 56.5 09/08/18 12:51: POC Glucose 113 H 09/08/18 18:32: POC Glucose 156 H 09/08/18 23:49: POC Glucose 131 H 09/09/18 05:31: POC Glucose 139 H 09/09/18 08:28: WBC 9.2, RBC 3.40 L, Hgb 10.9 L, Hct 33.3 L, MCV 97.9, MCH 32.1 H, MCHC 32.7, RDW 13.4, RDW Differential 46.2 H, Plt Count 191, MPV 10.1, Immature Gran % (Auto) 0.100, Neut % (Auto) 71.3 H, Lymph % (Auto) 18.5 L, [place] % (Auto) 9.5, Eos % (Auto) 0.4, Baso % (Auto) 0.2, Absolute Neuts (auto) 6.6, Absolute Lymphs (auto) 1.71, Total Counted Not Reportable 09/09/18 08:28: Sodium 139, Potassium 3.8, Chloride 106, Carbon Dioxide 26.0, Anion Gap 7, BUN 15, Creatinine 0.48 L, Estim Creat Clear Calc 45.85, Est GFR (MDRD) Af Amer 167, Est GFR (MDRD) Non-Af 138, BUN/Creatinine Ratio 31.6 H, Glucose 116 H, Calcium 7.6 L Current Medications Acetaminophen (Tylenol) 650 mg PO Q6H PRN PRN PRN Reason: Mild Pain (1-3)/Temp > 100.7 F Last Admin: 09/09/18 04:12 Dose: 650 mg Amlodipine Besylate (Norvasc) 10 mg PO QHS [facility] Last Admin: 09/08/18 23:53 Dose: 10 mg Atorvastatin Calcium (Lipitor) 10 mg PO QHS [facility] Last Admin: 09/08/18 23:53 Dose: 10 mg Cholecalciferol (Vitamin D) 2,000 unit PO DAILY [facility] Last Admin: 09/09/18 09:59 Dose: 2,000 unit Dextrose (D50w Syringe) 0 gm IV X1 PRN; Protocol PRN Reason: Hypoglycemia Enoxaparin Sodium (Lovenox) 40 mg SC DAILY@0600 [facility] Last Admin: 09/09/18 05:20 Dose: 40 mg Glucagon () 1 mg IM .X1 PRN PRN Reason: Hypoglycemia Hydrochlorothiazide () 12.5 mg PO DAILY [facility] Last Admin: 09/09/18 09:59 Dose: 12.5 mg Sodium Chloride () 250 mls @ 15 mls/hr IV .[id number] PRN PRN Reason: SALINE FLUSH Sodium Chloride () 1,000 mls @ 100 mls/hr IV .Q10H [facility] Last Admin: 09/09/18 01:10 Dose: 100 mls/hr Insulin Human Lispro (Humalog Kwikpen (Bkc)) 0 unit SQ Q6 [facility]; Protocol Last Admin: 09/09/18 05:31 Dose: Not Given Ketorolac Tromethamine (Toradol) 15 mg IV Q6H PRN PRN PRN Reason: PAIN Stop: 09/14/18 06:49 Last Admin: 09/09/18 06:59 Dose: 15 mg Losartan Potassium (Cozaar) 100 mg PO DAILY [facility] Last Admin: 09/09/18 09:59 Dose: 100 mg Magnesium Hydroxide (Milk Of Magnesia) 30 ml PO DAILY PRN PRN PRN Reason: Constipation Morphine Sulfate () 2 - 4 mg IV Q3H PRN PRN PRN Reason: MOD-SEVERE PAIN (4-10/10) Last Admin: 09/09/18 02:28 Dose: 2 mg Morphine Sulfate () 2 - 4 mg IV Q3H PRN PRN PRN Reason: MOD-SEVERE PAIN (4-10/10) Last Admin: 09/09/18 05:21 Dose: 4 mg Ondansetron HCl (Zofran) 4 mg IV Q8H PRN PRN PRN Reason: NAUSEA Oxycodone HCl (Oxyir) 5 mg PO Q4H PRN PRN PRN Reason: Moderate Pain (pain scale 4-5) Last Admin: 09/09/18 10:04 Dose: 5 mg Senna/Docusate Sodium (Senokot-S, Rachana-Colace) 1 tablet PO BID [facility] Last Admin: 09/09/18 09:59 Dose: 1 tablet Sodium Chloride () 5 - 15 ml IV UD PRN PRN Reason: SALINE FLUSH Last Admin: 09/09/18 06:59 Dose: 5 ml Zolpidem Tartrate (Ambien (Generic)) 5 mg PO QHS PRN PRN PRN Reason: INSOMNIA Medical Necessity - Tobacco Use Smoking Status: Current every day smoker Assessment/Plan All Active Problems (Last Reviewed 09/08/18 @ 03:58 by Dc Reeder MD) Urinary retention (Acute) Neurogenic bladder (Acute) Urge incontinence (Acute) Nocturia (Acute) Intertrochanteric fracture of left hip (Acute) 1. Displaced trochanteric fracture of the proximal left femur status post ORIF postop day 1/impacted fracture of the left humeral surgical neck with mildly comminuted fracture of greater tuberosity -Continue with pain meds per Ortho -PT/OT -Disposition is dependent on her functional status with PT/OT I have discussed with her the need for possible inpatient rehab versus correction facility -At this time the left humeral neck fracture appears to be nonoperative, continue with sling 2. Hypertension/hyperlipidemia -Blood pressure stable with pain control -Continue with hydrochlorothiazide and Cozaar -Continue with statin 3. DM2 - Hold metformin - SSI with accuchecks DVT: Lovenox Code Visit Inpatient E&M: 13757 Subs Hosp L2
--- NOTE | 2018-09-09 11:42 | PN_ITS ---
Patient Problems: Active and Suspected Problems (Last Reviewed 09/08/18 @ 03:58 by Dc Reeder MD) Intertrochanteric fracture of left hip (Acute) Left humeral fracture (Suspected) Subjective: Still with pain in the extremity left upper extreme. Denies any shortness of breath, chest pain, fever, chills Vitals/I&O's: Vital Signs Temp Pulse Resp BP Pulse Ox 99.2 F H 94 18 114/65 90 09/09/18 08:52 09/09/18 08:52 09/09/18 08:52 09/09/18 08:52 09/09/18 08:52 Oxygen Flow Rate (L/min) 3 Oxygen Delivery Method Nasal Cannula Weight: 166 lb 14.239 oz Body Mass Index (BMI) 28.6 Finger Stick Blood Glucose 156 Intake and Output for Last 24 Hours 09/07/18 09/08/18 09/09/18 23:59 23:59 23:59 Intake Total 1531 / 1531 1701 / 1701 Output Total 1150 / 1150 200 / 200 Balance 381 / 381 1501 / 1501 General: Alert, Oriented x3, Cooperative, No apparent distress, - - Hard of hearing HEENT: Atraumatic, EOMI, Normocephalic Oral: Moist Mucosa Neck: Supple, No JVD Lungs: Clear to auscultation, Normal air movement, No rhonchi, No wheeze, No rales Cardiovascular: Regular rate, Regular Rhythm, Normal S1, Normal S2, No murmurs Abdomen: Soft, Non Tender, Non-Distended, No Hepato-splenomegaly Extremities: No edema, Capillary Refill Less than 3 Seconds Skin: No rashes, No breakdown, Incision - Dressing intact Musculoskeletal: Tenderness - To left upper extremity which is in a sling Neurological: Neuro grossly intact, Sensory exam intact to light touch and pain Psych/Mental Status: Normal Affect, Appropriate Laboratory Results 09/08/18 02:09: TSH 3.05 09/08/18 02:09: PTH Intact 56.5 09/08/18 12:51: POC Glucose 113 H 09/08/18 18:32: POC Glucose 156 H 09/08/18 23:49: POC Glucose 131 H 09/09/18 05:31: POC Glucose 139 H 09/09/18 08:28: WBC 9.2, RBC 3.40 L, Hgb 10.9 L, Hct 33.3 L, MCV 97.9, MCH 32.1 H, MCHC 32.7, RDW 13.4, RDW Differential 46.2 H, Plt Count 191, MPV 10.1, Immature Gran % (Auto) 0.100, Neut % (Auto) 71.3 H, Lymph % (Auto) 18.5 L, [place] % (Auto) 9.5, Eos % (Auto) 0.4, Baso % (Auto) 0.2, Absolute Neuts (auto) 6.6, Absolute Lymphs (auto) 1.71, Total Counted Not Reportable 09/09/18 08:28: Sodium 139, Potassium 3.8, Chloride 106, Carbon Dioxide 26.0, Anion Gap 7, BUN 15, Creatinine 0.48 L, Estim Creat Clear Calc 45.85, Est GFR (MDRD) Af Amer 167, Est GFR (MDRD) Non-Af 138, BUN/Creatinine Ratio 31.6 H, Glucose 116 H, Calcium 7.6 L Current Medications Acetaminophen (Tylenol) 650 mg PO Q6H PRN PRN PRN Reason: Mild Pain (1-3)/Temp > 100.7 F Last Admin: 09/09/18 04:12 Dose: 650 mg Amlodipine Besylate (Norvasc) 10 mg PO QHS [facility] Last Admin: 09/08/18 23:53 Dose: 10 mg Atorvastatin Calcium (Lipitor) 10 mg PO QHS [facility] Last Admin: 09/08/18 23:53 Dose: 10 mg Cholecalciferol (Vitamin D) 2,000 unit PO DAILY [facility] Last Admin: 09/09/18 09:59 Dose: 2,000 unit Dextrose (D50w Syringe) 0 gm IV X1 PRN; Protocol PRN Reason: Hypoglycemia Enoxaparin Sodium (Lovenox) 40 mg SC DAILY@0600 [facility] Last Admin: 09/09/18 05:20 Dose: 40 mg Glucagon () 1 mg IM .X1 PRN PRN Reason: Hypoglycemia Hydrochlorothiazide () 12.5 mg PO DAILY [facility] Last Admin: 09/09/18 09:59 Dose: 12.5 mg Sodium Chloride () 250 mls @ 15 mls/hr IV .[id number] PRN PRN Reason: SALINE FLUSH Sodium Chloride () 1,000 mls @ 100 mls/hr IV .Q10H [facility] Last Admin: 09/09/18 01:10 Dose: 100 mls/hr Insulin Human Lispro (Humalog Kwikpen (Bkc)) 0 unit SQ Q6 [facility]; Protocol Last Admin: 09/09/18 05:31 Dose: Not Given Ketorolac Tromethamine (Toradol) 15 mg IV Q6H PRN PRN PRN Reason: PAIN Stop: 09/14/18 06:49 Last Admin: 09/09/18 06:59 Dose: 15 mg Losartan Potassium (Cozaar) 100 mg PO DAILY [facility] Last Admin: 09/09/18 09:59 Dose: 100 mg Magnesium Hydroxide (Milk Of Magnesia) 30 ml PO DAILY PRN PRN PRN Reason: Constipation Morphine Sulfate () 2 - 4 mg IV Q3H PRN PRN PRN Reason: MOD-SEVERE PAIN (4-10/10) Last Admin: 09/09/18 02:28 Dose: 2 mg Morphine Sulfate () 2 - 4 mg IV Q3H PRN PRN PRN Reason: MOD-SEVERE PAIN (4-10/10) Last Admin: 09/09/18 05:21 Dose: 4 mg Ondansetron HCl (Zofran) 4 mg IV Q8H PRN PRN PRN Reason: NAUSEA Oxycodone HCl (Oxyir) 5 mg PO Q4H PRN PRN PRN Reason: Moderate Pain (pain scale 4-5) Last Admin: 09/09/18 10:04 Dose: 5 mg Senna/Docusate Sodium (Senokot-S, Rachana-Colace) 1 tablet PO BID [facility] Last Admin: 09/09/18 09:59 Dose: 1 tablet Sodium Chloride () 5 - 15 ml IV UD PRN PRN Reason: SALINE FLUSH Last Admin: 09/09/18 06:59 Dose: 5 ml Zolpidem Tartrate (Ambien (Generic)) 5 mg PO QHS PRN PRN PRN Reason: INSOMNIA Medical Necessity - Tobacco Use Smoking Status: Current every day smoker Assessment/Plan All Active Problems (Last Reviewed 09/08/18 @ 03:58 by Dc Reeder MD) Urinary retention (Acute) Neurogenic bladder (Acute) Urge incontinence (Acute) Nocturia (Acute) Intertrochanteric fracture of left hip (Acute) 1. Displaced trochanteric fracture of the proximal left femur status post ORIF postop day 1/impacted fracture of the left humeral surgical neck with mildly comminuted fracture of greater tuberosity -Continue with pain meds per Ortho -PT/OT -Disposition is dependent on her functional status with PT/OT I have discussed with her the need for possible inpatient rehab versus jail facility -At this time the left humeral neck fracture appears to be nonoperative, continue with sling 2. Hypertension/hyperlipidemia -Blood pressure stable with pain control -Continue with hydrochlorothiazide and Cozaar -Continue with statin 3. DM2 - Hold metformin - SSI with accuchecks DVT: Lovenox Code Visit Inpatient E&M: 57160 Subs Hosp L2
[2018-09-09 11:51] LABS: Bedside Glucose 158 mg/dL (70-110)
[2018-09-09] MEDS: Insulin Lispro 100 UNIT/ML INSULN.PEN SQ (12:00)
--- NOTE | 2018-09-09 12:12 | PN.ORTHO_ITS ---
Patient Problems: Active and Suspected Problems (Last Reviewed 09/08/18 @ 03:58 by Dc Reeder MD) Intertrochanteric fracture of left hip (Acute) Left humeral fracture (Suspected) Subjective: Patient sitting up in bed sleeping. Patient had been eating lunch. Patient states pain is well managed, patient does appear to be slightly narcotized from her pain medication. Patient denies chest pain, shortness breath, calf pain, or nausea vomiting. Objective: Putting her room I found patient sleeping, she was easy to awake. She is in no respiratory distress. Patient's incisions are clean dry and intact. She has good plantar flexion dorsiflexion of the left foot. Negative signs and symptoms of DVT. Neurovascular is otherwise intact. Patient appears to be very somnolent. - Physical Exam General: Cooperative Oral: Moist Mucosa Cardiovascular: Regular rate Neurological: Cranial nerves II-XII grossly intact Psych/Mental Status: Normal Affect, Alert and oriented to time, place, person, mood and affect Vital Signs Temp Pulse Resp BP Pulse Ox 99.2 F H 94 18 114/65 90 09/09/18 08:52 09/09/18 08:52 09/09/18 08:52 09/09/18 08:52 09/09/18 08:52 Oxygen Flow Rate (L/min) 3 Oxygen Delivery Method Nasal Cannula Weight: 75.7 kg Body Mass Index (BMI) 28.6 Finger Stick Blood Glucose 156 Intake and Output for Last 24 Hours 09/07/18 09/08/18 09/09/18 23:59 23:59 23:59 Intake Total 1531 / 1531 1701 / 1701 Output Total 1150 / 1150 200 / 200 Balance 381 / 381 1501 / 1501 Laboratory Tests Past 24 Hrs 09/08/18 09/08/18 09/09/18 02:09 02:09 08:28 WBC 9.2 RBC 3.40 L Hgb 10.9 L Hct 33.3 L MCV 97.9 MCH 32.1 H MCHC 32.7 RDW 13.4 RDW Differential 46.2 H Plt Count 191 MPV 10.1 Immature Gran % (Auto) 0.100 Neut % (Auto) 71.3 H Lymph % (Auto) 18.5 L [place] % (Auto) 9.5 Eos % (Auto) 0.4 Baso % (Auto) 0.2 Absolute Neuts (auto) 6.6 Absolute Lymphs (auto) 1.71 Total Counted Not Reportable Sodium Potassium Chloride Carbon Dioxide Anion Gap BUN Creatinine Estim Creat Clear Calc Est GFR (MDRD) Af Amer Est GFR (MDRD) Non-Af BUN/Creatinine Ratio Glucose Calcium TSH 3.05 PTH Intact 56.5 09/09/18 08:28 WBC RBC Hgb Hct MCV MCH MCHC RDW RDW Differential Plt Count MPV Immature Gran % (Auto) Neut % (Auto) Lymph % (Auto) [place] % (Auto) Eos % (Auto) Baso % (Auto) Absolute Neuts (auto) Absolute Lymphs (auto) Total Counted Sodium 139 Potassium 3.8 Chloride 106 Carbon Dioxide 26.0 Anion Gap 7 BUN 15 Creatinine 0.48 L Estim Creat Clear Calc 45.85 Est GFR (MDRD) Af Amer 167 Est GFR (MDRD) Non-Af 138 BUN/Creatinine Ratio 31.6 H Glucose 116 H Calcium 7.6 L TSH PTH Intact POC Glucose 09/09/18 09/09/18 09/08/18 11:45 05:31 23:49 POC Glucose 158 H 139 H 131 H 09/08/18 09/08/18 18:32 12:51 POC Glucose 156 H 113 H Medical Necessity - Tobacco Use Smoking Status: Current every day smoker Assessment/Plan All Active Problems (Last Reviewed 09/08/18 @ 03:58 by Dc Reeder MD) Urinary retention (Acute) Neurogenic bladder (Acute) Urge incontinence (Acute) Nocturia (Acute) Intertrochanteric fracture of left hip (Acute) Status post ORIF for left hip sub-trochanteric fracture/stable Plan 1. Continue all pain medications as prescribed 2. Continue postop DVT prophylaxis as prescribed by medicine 3. Continue physical therapy. Weight-bear, 50% toe-touch with transfer of the left leg. Patient to remain nonweightbearing with the left arm proximal humerus fracture 4. Encourage incentive spirometry 5. Date of discharge dressings to be changed and replaced with AG dressings, to remain in place for 9 days. 6. Staple removal on 09-21-2018 7. Follow-up with Dr. Kapoor in 2-3 weeks, call for appointment 8. Continue wearing sling of the left arm range of motion of elbow and wrist as tolerated. 9. Ice to be applied to the left shoulder left hip 3-4 times daily
--- NOTE | 2018-09-09 12:46 | NURSING ---
PT RESTING QUIETLY IN BED WITH EYES CLOSED, RESP EASY
--- NOTE | 2018-09-09 13:21 | PCA ---
therapy working with pt
--- NOTE | 2018-09-09 14:29 | NURSING ---
O2 INCREASED TO 4L NC - WILL MONITOR
--- NOTE | 2018-09-09 15:33 | CASEMGMT ---
Social Work Note Pt's now present in room. SW met with pt and pt's . CHRISSY informed pt's Manjeet that currently pt is assist of 2/3 and PT/OT are recommending SNF for pt. Manjeet asked about [facility]. CHRISSY provided Manjeet with list of facilities in network with pt's insurance and [facility] is not listed. CHRISSY informed pt's that there is a TCU/RU at [facility] and they may have a bed for pt. Pt's states that he would prefer for pt to stay at [facility] if able to. CHRISSY explained that this worker will have to check on bed availability and pt will need pre-cert. SW placed a call to referral line and left a message informing of referral. SW waiting to hear back from referral line. Plan: SNF pending acceptance and pre-cert. Jennifer Newman VINYL DIPPER, EARLY CHILDHOOD LEAD TEACHER
--- NOTE | 2018-09-09 15:34 | NURSING ---
PT WITH WHEEZES, HARSH APPLICATIONS SUPPORT LEAD COUGH (PT IS A SMOKER). PT NOT WANTING TO BE TURNED IN BED (BECAUSE IT HURTS), NOT WANTING TO USE I.S. EXPLAINED TO PT IMPORTANCE OF BOTH. DR FREIRE MADE AWARE. AEROSOLS ORDERED.
--- NOTE | 2018-09-09 15:39 | PCM.CONS.GEN ---
Reason for Consult Date of Consultation: 09/08/18 Reason for Consultation: Left hip and shoulder pain History of Present Illness: The patient is a 68 year old F [who ambulates at home with a walker and cane. She fell and was admitted through the ED with an impacted left surgical neck humerus fracture and a 4 part intertrochanteric femur fracture with subtrochanteric extension.] Past Medical History Past Medical History (Chronic Problems): Chronic Problems (Last Reviewed 09/08/18 @ 03:58 by Dc Reeder MD) HTN (hypertension) (Chronic) Medical History: Medical History (Last Reviewed 09/08/18 @ 03:58 by Dc Reeder MD) Diabetes E11.9 Neurogenic bladder N31.9 Allergies quinapril [From Accupril] Allergy (Verified 09/08/18 00:04) Rash Home Medications: Ambulatory Orders Medication Instructions Recorded Metformin HCl [Glucophage] 1 tab PO BID 09/26/17 Amlodipine Besylate [Norvasc] 10 mg PO DAILY 06/16/18 Cholecalciferol (Vitamin D3) 2,000 unit PO DAILY 06/16/18 [Vitamin D3] Hydrochlorothiazide [Hctz] 12.5 mg PO DAILY 06/16/18 Losartan Potassium [Cozaar] 100 mg PO DAILY 06/16/18 Naproxen 500 mg PO QHS 09/08/18 Rosuvastatin Calcium 5 mg PO QHS 09/08/18 Surgical History: - - Bladder Surgery x2; right carotid endarectomy; and bladder stimulator placed at back Lives: Spouse/ Significant Other Smoking Status: Current every day smoker Alcohol: None - *Family History Maternal Family History: Family History (Last Reviewed 09/08/18 @ 03:59 by Dc Reeder MD) Mother Tuberculosis Patient Problems: Active and Suspected Problems (Last Reviewed 09/08/18 @ 03:58 by Dc Reeder MD) Intertrochanteric fracture of left hip (Acute) Left humeral fracture (Suspected) - Physical Exam General: Alert, Oriented x3, No apparent distress Extremities: No clubbing, Capillary Refill Less than 3 Seconds, Tenderness - Left shoulder and hip. LLE is shortened and externally rotated Neurological: Neuro grossly intact Comment: xrays reveal the above noted Vital Signs Temp Pulse Resp BP Pulse Ox 99.6 F H 118 H 20 H 125/74 H 97 09/09/18 14:24 09/09/18 14:24 09/09/18 14:49 09/09/18 14:24 09/09/18 14:49 Oxygen Flow Rate (L/min) 4 Oxygen Delivery Method Nasal Cannula Weight: 166 lb 14.239 oz Body Mass Index (BMI) 28.6 Finger Stick Blood Glucose 156 Intake and Output for Last 24 Hours 09/07/18 09/08/18 09/09/18 23:59 23:59 23:59 Intake Total 1531 / 1531 2421 / 2421 Output Total 1150 / 1150 375 / 375 Balance 381 / 381 6 / 204 Laboratory Tests Past 24 Hrs 09/08/18 09/08/18 09/09/18 02:09 02:09 08:28 WBC 9.2 RBC 3.40 L Hgb 10.9 L Hct 33.3 L MCV 97.9 MCH 32.1 H MCHC 32.7 RDW 13.4 RDW Differential 46.2 H Plt Count 191 MPV 10.1 Immature Gran % (Auto) 0.100 Neut % (Auto) 71.3 H Lymph % (Auto) 18.5 L [place] % (Auto) 9.5 Eos % (Auto) 0.4 Baso % (Auto) 0.2 Absolute Neuts (auto) 6.6 Absolute Lymphs (auto) 1.71 Total Counted Not Reportable Sodium Potassium Chloride Carbon Dioxide Anion Gap BUN Creatinine Estim Creat Clear Calc Est GFR (MDRD) Af Amer Est GFR (MDRD) Non-Af BUN/Creatinine Ratio Glucose Calcium TSH 3.05 PTH Intact 56.5 09/09/18 08:28 WBC RBC Hgb Hct MCV MCH MCHC RDW RDW Differential Plt Count MPV Immature Gran % (Auto) Neut % (Auto) Lymph % (Auto) [place] % (Auto) Eos % (Auto) Baso % (Auto) Absolute Neuts (auto) Absolute Lymphs (auto) Total Counted Sodium 139 Potassium 3.8 Chloride 106 Carbon Dioxide 26.0 Anion Gap 7 BUN 15 Creatinine 0.48 L Estim Creat Clear Calc 45.85 Est GFR (MDRD) Af Amer 167 Est GFR (MDRD) Non-Af 138 BUN/Creatinine Ratio 31.6 H Glucose 116 H Calcium 7.6 L TSH PTH Intact POC Glucose 09/09/18 09/09/18 09/08/18 11:45 05:31 23:49 POC Glucose 158 H 139 H 131 H 09/08/18 18:32 POC Glucose 156 H Assessment/Plan All Active Problems (Last Reviewed 09/08/18 @ 03:58 by Dc Reeder MD) Urinary retention (Acute) Neurogenic bladder (Acute) Urge incontinence (Acute) Nocturia (Acute) Intertrochanteric fracture of left hip (Acute) Impacted left shoulder fracture should heal in a sling non-operatively. Left hip fracture will require ORIF to stabilize. I reviewed the potential risks, complications, projected healing time and alternatives to surgical treatment with the patient and her and they do wish to proceed.
--- NOTE | 2018-09-09 16:19 | CASEMGMT ---
Social Work Note SW spoke with Stephy who is covering TCU/RU. Per Stephy she will talk to PT/OT tomorrow and whichever PT/OT recommends (either TCU or RU) that is where pt can plan on going pending pre-cert. Plan: TCU vs RU Jennifer Newman ZIPPER SLIDE ATTACHER, DEPUTY CONTROLLER
[2018-09-09 16:35] LABS: Bedside Glucose 134 mg/dL (70-110)
[2018-09-09] MEDS: amLODIPine 10 MG Tablet PO (20:24)
[2018-09-09] MEDS: Atorvastatin Calcium 10 MG Tablet PO (20:25)
[2018-09-09] MEDS: Ipratropium/Albuterol Sulfate 3 ML AMPUL.NEB INHALATION (20:58)
[2018-09-10] VITALS (11 sets, daily range): BP systolic 149–173; BP diastolic 80–98; PULSE 90–109; RESP 18–24; TEMP 37.7–38; O2SAT 93–95
[2018-09-10 00:16] LABS: Bedside Glucose 148 mg/dL (70-110)
[2018-09-10 01:04] LABS: (24 HR) Urine Calcium 53.5 mg/24 HR (42.0-353.0); 24HR UR TOTAL VOLUME 2675 ml; Urine Calcium (Random) < 2.0 (Not Estab.)
[2018-09-10 01:05] LABS: Calcium Urine pH Range 1
[2018-09-10] MEDS: oxyCODONE 5 MG Tablet PO ×4 (02:47→22:46)
[2018-09-10] MEDS: Acetaminophen 325 MG Tablet 650 MG PO ×3 (02:48→22:46)
[2018-09-10 05:49] LABS: Absolute Lymphocyte Count 1.24 X10^3/ul (0.83-4.51); Absolute Neutrophil Count 6.5 X10^3/uL (2.0-7.7); Basophil# 0.02 X10^3/uL; Basophil% 0.2 % (0-1); Eosinophil# 0.09 X10^3/uL; Hematocrit 31.4 % (37-47); Hemoglobin 10.5 g/dl (12.0-15.0); Lymphocyte # 1.24 X10^3/ul (4.0); Lymphocyte % 14.1 % (19-41); Mean Corp Hgb Conc 33.4 g/gl (32-36); Mean Corpuscular Hgb 32.1 pg (27.0-32.0); Mean Platelet Vol. 10.6 fl (6.2-12.0); Monocyte# 0.89 X10^3/uL; Monocyte% 10.1 % (0-10); Neutrophil # 6.51 X10^3/uL (2.7-7.7); Neutrophil % 74.4 % (47-70); Platelet Count 170 K/mm3 (150-450); RBC Distribution Width CV 12.6 % (11.6-14.6); RBC Distribution Width SD 43.1 fl (35.1-43.9); Red Blood Count 3.27 M/mm3 (4.2-5.4); White Blood Count 8.8 K/mm3 (4.4-11.0)
[2018-09-10 05:51] LABS: POSITIVE COUNT NO; POSITIVE DIFFERENTIAL NO; POSITIVE MORPHOLOGY NO
[2018-09-10] MEDS: Enoxaparin 40 MG/0.4 ML Syringe SC (06:05)
[2018-09-10 06:09] LABS: Anion Gap 7 (5-15); BUN 8 mg/dL (7-18); BUN/Creat Ratio 21.4 RATIO (10-20); Calcium,Total 7.8 mg/dL (8.5-10.1); Chloride 104 mmol/L (98-107); Creatinine, Serum 0.37 mg/dL (0.55-1.02); EST Glomerular Filtration Rate 182 mL/min (>60); Est Glom Filt Rate - Afr Amer 220 mL/min (>60); Estimated Creatinine Clearance 45.85 ml/min; Glucose 129 mg/dL (74-106); Potassium 3.3 mmol/L (3.5-5.1); Sodium Level 138 mmol/L (136-145)
[2018-09-10] MEDS: Ketorolac 15 MG/ML Vial IV (06:09)
[2018-09-10] MEDS: Ipratropium/Albuterol Sulfate 3 ML AMPUL.NEB INHALATION ×4 (06:41→18:56)
[2018-09-10 06:45] LABS: Bedside Glucose 121 mg/dL (70-110)
[2018-09-10] MEDS: 0.9% Normal Saline 1,000 ML 100 ML IV ×2 (07:53→16:56)
[2018-09-10] MEDS: Senna/Docusate Sodium 1 Tablet PO ×2 (08:05→22:41)
[2018-09-10] MEDS: Losartan Potassium 100 MG Tablet PO (08:05)
[2018-09-10] MEDS: hydroCHLOROthiazide 12.5mg 12.5 MG PO (08:05)
--- NOTE | 2018-09-10 09:32 | PCM.PN.HOSP ---
Patient Problems: Active and Suspected Problems (Last Reviewed 09/08/18 @ 03:58 by Dc Reeder MD) Intertrochanteric fracture of left hip (Acute) Left humeral fracture (Suspected) Subjective: Pain is improved in her left hip. Denies any chest pain or shortness of breath. Left shoulder pain is also a little bit improved in the sling. Vitals/I&O's: Vital Signs Temp Pulse Resp BP Pulse Ox 99.9 F H 96 18 149/84 H 93 09/10/18 08:38 09/10/18 08:38 09/10/18 08:38 09/10/18 08:38 09/10/18 08:38 Oxygen Flow Rate (L/min) 4 Oxygen Delivery Method Nasal Cannula Weight: 166 lb 14.239 oz Body Mass Index (BMI) 28.6 Finger Stick Blood Glucose 156 Intake and Output for Last 24 Hours 09/08/18 09/09/18 09/10/18 23:59 23:59 23:59 Intake Total 1531 / 1531 3261 / 3261 2546 / 2546 Output Total 1150 / 1150 1025 / 1025 2225 / 2225 Balance 381 / 381 2236 / 2236 321 / 321 General: Alert, Oriented x3, Cooperative, No apparent distress, - - Hard of hearing HEENT: Atraumatic, EOMI, Normocephalic Oral: Moist Mucosa Neck: Supple, No JVD Lungs: Normal air movement, No rhonchi, min wheeze, No rales Cardiovascular: Regular rate, Regular Rhythm, Normal S1, Normal S2, No murmurs Abdomen: Soft, Non Tender, Non-Distended, No Hepato-splenomegaly Extremities: No edema, Capillary Refill Less than 3 Seconds Skin: No rashes, No breakdown, Incision - Dressing intact Musculoskeletal: Tenderness - To left upper extremity which is in a sling Neurological: Neuro grossly intact, Sensory exam intact to light touch and pain Psych/Mental Status: Normal Affect, Appropriate Laboratory Results 09/09/18 11:45: POC Glucose 158 H 09/09/18 16:27: POC Glucose 134 H 09/09/18 23:00: Urine pH 1, Urine Collection Time 24.0, Urine Total Volume 2675, Urine Calcium < 2.0, Ur Calcium 24 Hr 53.5 09/09/18 23:33: POC Glucose 148 H 09/10/18 05:08: WBC 8.8, RBC 3.27 L, Hgb 10.5 L, Hct 31.4 L, MCV 96.0, MCH 32.1 H, MCHC 33.4, RDW 12.6, RDW Differential 43.1, Plt Count 170, MPV 10.6, Immature Gran % (Auto) 0.200, Neut % (Auto) 74.4 H, Lymph % (Auto) 14.1 L, [place] % (Auto) 10.1 H, Eos % (Auto) 1.0, Baso % (Auto) 0.2, Absolute Neuts (auto) 6.5, Absolute Lymphs (auto) 1.24, Total Counted Not Reportable 09/10/18 05:08: Sodium 138, Potassium 3.3 L, Chloride 104, Carbon Dioxide 27.0, Anion Gap 7, BUN 8, Creatinine 0.37 L, Estim Creat Clear Calc 45.85, Est GFR (MDRD) Af Amer 220, Est GFR (MDRD) Non-Af 182, BUN/Creatinine Ratio 21.4 H, Glucose 129 H, Calcium 7.8 L 09/10/18 06:04: POC Glucose 121 H Current Medications Acetaminophen (Tylenol) 650 mg PO Q6H PRN PRN PRN Reason: Mild Pain (1-3)/Temp > 100.7 F Last Admin: 09/10/18 02:48 Dose: 650 mg Albuterol/Ipratropium (Duoneb) 3 ml INHALATION Q4HWA.RT [facility] Last Admin: 09/10/18 06:41 Dose: 3 ml Amlodipine Besylate (Norvasc) 10 mg PO QHS [facility] Last Admin: 09/09/18 20:24 Dose: 10 mg Atorvastatin Calcium (Lipitor) 10 mg PO QHS [facility] Last Admin: 09/09/18 20:25 Dose: 10 mg Cholecalciferol (Vitamin D) 2,000 unit PO DAILY [facility] Last Admin: 09/10/18 08:05 Dose: 2,000 unit Dextrose (D50w Syringe) 0 gm IV X1 PRN; Protocol PRN Reason: Hypoglycemia Enoxaparin Sodium (Lovenox) 40 mg SC DAILY@0600 [facility] Last Admin: 09/10/18 06:05 Dose: 40 mg Glucagon () 1 mg IM .X1 PRN PRN Reason: Hypoglycemia Hydrochlorothiazide () 12.5 mg PO DAILY [facility] Last Admin: 09/10/18 08:05 Dose: 12.5 mg Sodium Chloride () 250 mls @ 15 mls/hr IV .[id number] PRN PRN Reason: SALINE FLUSH Sodium Chloride () 1,000 mls @ 100 mls/hr IV .Q10H [facility] Last Admin: 09/10/18 07:53 Dose: 100 mls/hr Insulin Human Lispro (Humalog Kwikpen (Bkc)) 0 unit SQ Q6 [facility]; Protocol Last Admin: 09/10/18 06:04 Dose: Not Given Ketorolac Tromethamine (Toradol) 15 mg IV Q6H PRN PRN PRN Reason: PAIN Stop: 09/14/18 06:49 Last Admin: 09/10/18 06:09 Dose: 15 mg Losartan Potassium (Cozaar) 100 mg PO DAILY [facility] Last Admin: 09/10/18 08:05 Dose: 100 mg Magnesium Hydroxide (Milk Of Magnesia) 30 ml PO DAILY PRN PRN PRN Reason: Constipation Morphine Sulfate () 2 - 4 mg IV Q3H PRN PRN PRN Reason: MOD-SEVERE PAIN (4-10/10) Last Admin: 09/09/18 02:28 Dose: 2 mg Morphine Sulfate () 2 - 4 mg IV Q3H PRN PRN PRN Reason: MOD-SEVERE PAIN (4-10/10) Last Admin: 09/09/18 05:21 Dose: 4 mg Nicotine (Nicoderm Cq (Pbkc)) 21 mg TRANSDERM. DAILY [facility] Ondansetron HCl (Zofran) 4 mg IV Q8H PRN PRN PRN Reason: NAUSEA Oxycodone HCl (Oxyir) 5 mg PO Q4H PRN PRN PRN Reason: Moderate Pain (pain scale 4-5) Last Admin: 09/10/18 07:55 Dose: 5 mg Potassium Chloride (K-Dur) 40 meq PO X1 ONE Stop: 09/10/18 09:32 Senna/Docusate Sodium (Senokot-S, Rachana-Colace) 1 tablet PO BID [facility] Last Admin: 09/10/18 08:05 Dose: 1 tablet Sodium Chloride () 5 - 15 ml IV UD PRN PRN Reason: SALINE FLUSH Last Admin: 09/09/18 06:59 Dose: 5 ml Zolpidem Tartrate (Ambien (Generic)) 5 mg PO QHS PRN PRN PRN Reason: INSOMNIA Medical Necessity - Tobacco Use Smoking Status: Current every day smoker Assessment/Plan All Active Problems (Last Reviewed 09/08/18 @ 03:58 by Dc Reeder MD) Urinary retention (Acute) Neurogenic bladder (Acute) Urge incontinence (Acute) Nocturia (Acute) Intertrochanteric fracture of left hip (Acute) 1. Displaced trochanteric fracture of the proximal left femur status post ORIF postop day 1/impacted fracture of the left humeral surgical neck with mildly comminuted fracture of greater tuberosity -Continue with pain meds per Ortho -PT/OT -Disposition is dependent on her functional status with PT/OT I have discussed with her the need for possible inpatient rehab versus [facility] facility -At this time the left humeral neck fracture appears to be nonoperative, continue with sling 2. Hypertension/hyperlipidemia -Blood pressure stable with pain control -Continue with hydrochlorothiazide and Cozaar -Continue with statin 3. DM2 - Hold metformin - SSI with accuchecks 4. Increase O2 requirement - Likely secondary to atelectasis - Duoneb ordered - Encouraged transfer to chair and ISS though she is resistant for either DVT: Lovenox Code Visit Inpatient E&M: 61194 Subs Hosp L2
--- NOTE | 2018-09-10 09:35 | PN_ITS ---
Patient Problems: Active and Suspected Problems (Last Reviewed 09/08/18 @ 03:58 by Dc Reeder MD) Intertrochanteric fracture of left hip (Acute) Left humeral fracture (Suspected) Subjective: Pain is improved in her left hip. Denies any chest pain or shortness of breath. Left shoulder pain is also a little bit improved in the sling. Vitals/I&O's: Vital Signs Temp Pulse Resp BP Pulse Ox 99.9 F H 96 18 149/84 H 93 09/10/18 08:38 09/10/18 08:38 09/10/18 08:38 09/10/18 08:38 09/10/18 08:38 Oxygen Flow Rate (L/min) 4 Oxygen Delivery Method Nasal Cannula Weight: 166 lb 14.239 oz Body Mass Index (BMI) 28.6 Finger Stick Blood Glucose 156 Intake and Output for Last 24 Hours 09/08/18 09/09/18 09/10/18 23:59 23:59 23:59 Intake Total 1531 / 1531 3261 / 3261 2546 / 2546 Output Total 1150 / 1150 1025 / 1025 2225 / 2225 Balance 381 / 381 2236 / 2236 321 / 321 General: Alert, Oriented x3, Cooperative, No apparent distress, - - Hard of hearing HEENT: Atraumatic, EOMI, Normocephalic Oral: Moist Mucosa Neck: Supple, No JVD Lungs: Normal air movement, No rhonchi, min wheeze, No rales Cardiovascular: Regular rate, Regular Rhythm, Normal S1, Normal S2, No murmurs Abdomen: Soft, Non Tender, Non-Distended, No Hepato-splenomegaly Extremities: No edema, Capillary Refill Less than 3 Seconds Skin: No rashes, No breakdown, Incision - Dressing intact Musculoskeletal: Tenderness - To left upper extremity which is in a sling Neurological: Neuro grossly intact, Sensory exam intact to light touch and pain Psych/Mental Status: Normal Affect, Appropriate Laboratory Results 09/09/18 11:45: POC Glucose 158 H 09/09/18 16:27: POC Glucose 134 H 09/09/18 23:00: Urine pH 1, Urine Collection Time 24.0, Urine Total Volume 2675, Urine Calcium < 2.0, Ur Calcium 24 Hr 53.5 09/09/18 23:33: POC Glucose 148 H 09/10/18 05:08: WBC 8.8, RBC 3.27 L, Hgb 10.5 L, Hct 31.4 L, MCV 96.0, MCH 32.1 H, MCHC 33.4, RDW 12.6, RDW Differential 43.1, Plt Count 170, MPV 10.6, Immature Gran % (Auto) 0.200, Neut % (Auto) 74.4 H, Lymph % (Auto) 14.1 L, Dougherty % (Auto) 10.1 H, Eos % (Auto) 1.0, Baso % (Auto) 0.2, Absolute Neuts (auto) 6.5, Absolute Lymphs (auto) 1.24, Total Counted Not Reportable 09/10/18 05:08: Sodium 138, Potassium 3.3 L, Chloride 104, Carbon Dioxide 27.0, Anion Gap 7, BUN 8, Creatinine 0.37 L, Estim Creat Clear Calc 45.85, Est GFR (MDRD) Af Amer 220, Est GFR (MDRD) Non-Af 182, BUN/Creatinine Ratio 21.4 H, Glucose 129 H, Calcium 7.8 L 09/10/18 06:04: POC Glucose 121 H Current Medications Acetaminophen (Tylenol) 650 mg PO Q6H PRN PRN PRN Reason: Mild Pain (1-3)/Temp > 100.7 F Last Admin: 09/10/18 02:48 Dose: 650 mg Albuterol/Ipratropium (Duoneb) 3 ml INHALATION Q4HWA.RT [facility] Last Admin: 09/10/18 06:41 Dose: 3 ml Amlodipine Besylate (Norvasc) 10 mg PO QHS HUANG Last Admin: 09/09/18 20:24 Dose: 10 mg Atorvastatin Calcium (Lipitor) 10 mg PO QHS [facility] Last Admin: 09/09/18 20:25 Dose: 10 mg Cholecalciferol (Vitamin D) 2,000 unit PO DAILY [facility] Last Admin: 09/10/18 08:05 Dose: 2,000 unit Dextrose (D50w Syringe) 0 gm IV X1 PRN; Protocol PRN Reason: Hypoglycemia Enoxaparin Sodium (Lovenox) 40 mg SC DAILY@0600 [facility] Last Admin: 09/10/18 06:05 Dose: 40 mg Glucagon () 1 mg IM .X1 PRN PRN Reason: Hypoglycemia Hydrochlorothiazide () 12.5 mg PO DAILY [facility] Last Admin: 09/10/18 08:05 Dose: 12.5 mg Sodium Chloride () 250 mls @ 15 mls/hr IV .[id number] PRN PRN Reason: SALINE FLUSH Sodium Chloride () 1,000 mls @ 100 mls/hr IV .Q10H [facility] Last Admin: 09/10/18 07:53 Dose: 100 mls/hr Insulin Human Lispro (Humalog Kwikpen (Bkc)) 0 unit SQ Q6 HUANG; Protocol Last Admin: 09/10/18 06:04 Dose: Not Given Ketorolac Tromethamine (Toradol) 15 mg IV Q6H PRN PRN PRN Reason: PAIN Stop: 09/14/18 06:49 Last Admin: 09/10/18 06:09 Dose: 15 mg Losartan Potassium (Cozaar) 100 mg PO DAILY [facility] Last Admin: 09/10/18 08:05 Dose: 100 mg Magnesium Hydroxide (Milk Of Magnesia) 30 ml PO DAILY PRN PRN PRN Reason: Constipation Morphine Sulfate () 2 - 4 mg IV Q3H PRN PRN PRN Reason: MOD-SEVERE PAIN (4-10/10) Last Admin: 09/09/18 02:28 Dose: 2 mg Morphine Sulfate () 2 - 4 mg IV Q3H PRN PRN PRN Reason: MOD-SEVERE PAIN (4-10/10) Last Admin: 09/09/18 05:21 Dose: 4 mg Nicotine (Nicoderm Cq (Pbkc)) 21 mg TRANSDERM. DAILY [facility] Ondansetron HCl (Zofran) 4 mg IV Q8H PRN PRN PRN Reason: NAUSEA Oxycodone HCl (Oxyir) 5 mg PO Q4H PRN PRN PRN Reason: Moderate Pain (pain scale 4-5) Last Admin: 09/10/18 07:55 Dose: 5 mg Potassium Chloride (K-Dur) 40 meq PO X1 ONE Stop: 09/10/18 09:32 Senna/Docusate Sodium (Senokot-S, Rachana-Colace) 1 tablet PO BID [facility] Last Admin: 09/10/18 08:05 Dose: 1 tablet Sodium Chloride () 5 - 15 ml IV UD PRN PRN Reason: SALINE FLUSH Last Admin: 09/09/18 06:59 Dose: 5 ml Zolpidem Tartrate (Ambien (Generic)) 5 mg PO QHS PRN PRN PRN Reason: INSOMNIA Medical Necessity - Tobacco Use Smoking Status: Current every day smoker Assessment/Plan All Active Problems (Last Reviewed 09/08/18 @ 03:58 by Dc Reeder MD) Urinary retention (Acute) Neurogenic bladder (Acute) Urge incontinence (Acute) Nocturia (Acute) Intertrochanteric fracture of left hip (Acute) 1. Displaced trochanteric fracture of the proximal left femur status post ORIF postop day 1/impacted fracture of the left humeral surgical neck with mildly comminuted fracture of greater tuberosity -Continue with pain meds per Ortho -PT/OT -Disposition is dependent on her functional status with PT/OT I have discussed with her the need for possible inpatient rehab versus jail facility -At this time the left humeral neck fracture appears to be nonoperative, continue with sling 2. Hypertension/hyperlipidemia -Blood pressure stable with pain control -Continue with hydrochlorothiazide and Cozaar -Continue with statin 3. DM2 - Hold metformin - SSI with accuchecks 4. Increase O2 requirement - Likely secondary to atelectasis - Duoneb ordered - Encouraged transfer to chair and ISS though she is resistant for either DVT: Lovenox Code Visit Inpatient E&M: 97770 Subs Hosp L2
[2018-09-10 11:50] LABS: Bedside Glucose 143 mg/dL (70-110)
--- NOTE | 2018-09-10 14:33 | CASEMGMT ---
Social Work PASRR completed in [facility] and given to Maile Newman. Mohamud Aggarwal, CHANGE MANAGEMENT SPECIALIST, CHEESE GRADER
--- NOTE | 2018-09-10 16:02 | CASEMGMT ---
Social Work Note CHRISSY spoke with PT/OT earlier today who states pt won't be able to handle three hours at [facility]. CHRISSY placed a call to TCU and per Stephy TCU is not in network with pt's insurance. Per previous conversations with pt's , pt's had informed this worker that if TCU/[facility] couldn't accept pt then to have this worker to call pt's daughter Chloé to get next choice of facility. CHRISSY placed a call to pt's daughter Chloé and per Chloé she would like a referral to sent to [facility]. Referral faxed to [facility]. CHRISSY spoke with Joselin at [facility] and they are able to accept pt and will submit for pre-cert. CHRISSY spoke with Joselin who states pre-cert has been obtained and pt is able to admit today and pre-cert is good for 24 hours. CHRISSY updated physician. Per physician, pt's family doesn't want pt to discharge today. CHRISSY informed physician that pre-cert is good until tomorrow. CHRISSY placed a call to Joselin at [facility] and updated her that pt is staying today and will be discharged tomorrow. Green sheet and HENS on pt's chart. Signed medication list and scripts on pt's chart. Plan: Pt to discharge to [facility] tomorrow.
[2018-09-10 17:00] LABS: Bedside Glucose 127 mg/dL (70-110)
[2018-09-10] MEDS: amLODIPine 10 MG Tablet PO (22:41)
[2018-09-10] MEDS: Atorvastatin Calcium 10 MG Tablet PO (22:41)
[2018-09-10] MEDS: Zolpidem Tartrate 5 MG Tablet PO (22:47)
[2018-09-10 23:41] LABS: Bedside Glucose 148 mg/dL (70-110)
[2018-09-11 03:25] VITALS: BP 133/82; PULSE 98; RESP 20; TEMP 37.1; O2SAT 95
[2018-09-11 03:30] VITALS: PULSE 98; RESP 20; O2SAT 95
[2018-09-11] MEDS: oxyCODONE 5 MG Tablet PO ×2 (03:30→14:35)
[2018-09-11] MEDS: 0.9% Normal Saline 1,000 ML 100 ML IV (03:35)
[2018-09-11] MEDS: Enoxaparin 40 MG/0.4 ML Syringe SC (06:21)
[2018-09-11 06:40] LABS: Bedside Glucose 124 mg/dL (70-110)
[2018-09-11 06:57] LABS: Anion Gap 7 (5-15); BUN 7 mg/dL (7-18); BUN/Creat Ratio 18.3 RATIO (10-20); Calcium,Total 7.8 mg/dL (8.5-10.1); Chloride 105 mmol/L (98-107); Creatinine, Serum 0.38 mg/dL (0.55-1.02); EST Glomerular Filtration Rate 177 mL/min (>60); Est Glom Filt Rate - Afr Amer 214 mL/min (>60); Estimated Creatinine Clearance 45.85 ml/min; Glucose 111 mg/dL (74-106); Magnesium 1.7 mg/dL (1.6-2.6); Phosphorus 2.7 mg/dL (2.5-4.9); Sodium Level 136 mmol/L (136-145)
[2018-09-11 08:00] VITALS: PULSE 102; RESP 30; O2SAT 95
[2018-09-11] MEDS: Ipratropium/Albuterol Sulfate 3 ML AMPUL.NEB INHALATION ×2 (08:00→11:56)
[2018-09-11 09:04] VITALS: BP 143/83; PULSE 98; RESP 20; TEMP 37.2; O2SAT 93
[2018-09-11 09:10] VITALS: PULSE 98; RESP 20
[2018-09-11] MEDS: Senna/Docusate Sodium 1 Tablet PO (09:21)
[2018-09-11] MEDS: Losartan Potassium 100 MG Tablet PO (09:22)
[2018-09-11] MEDS: hydroCHLOROthiazide 12.5mg 12.5 MG PO (09:22)
--- NOTE | 2018-09-11 11:02 | PCM.TXEXTCAR ---
- Diet 09/09/18 09:15 ADA [Diet: Calorie Controlled] Is pt able to select menu?: No How many daily calories?: 1800 calorie - Routine Orders/Code Status Code Status: Full Code - Wound(s) right hand Wound Type: Skin Tear L LEG Wound Type: Surgical Incision Dressing Change: AntiMicrobial (Aquacel AG, etc) - AG dressing applied on day of discharge is to remain in place for 9 days. Staple removal on 09/21/2018 rt hand Wound Type: Abrasion - Therapies Weight Bearing: Toe-touch weight bearing - 50% toe touch with transfer of the left leg she is to remain nonweightbearing with the left arm proximal humerus fracture, which is to remain in the sling Extremity Affected:: Left Lower - Allergies/Procedures Done in Hospital Allergies/Adverse Reactions: Allergies quinapril [From Accupril] Allergy (Verified 09/08/18 00:04) Rash - Type of Care/Length of Stay Estimated LOS: Convalescent Care Less Than 30 days Type of Care Needed: Skilled Rehab Potential: Good Prognosis: Good - Additional Orders/Day of Discharge Day of Discharge: 09/11/18 - Dietary and Speech Recommendations Dietitian Recommendations/Changes: Suggest advance diet post-op as tolerated to 1800 calorie/cardiac. - Follow Up Care Primary Care Physician: Cabrera Taylor III, MD [Primary Care Provider] - Please follow up with your Primary Care Physician in: 3-5 days Please Follow Up With: Caden Kapoor DO When: 2-3 weeks
--- NOTE | 2018-09-11 11:13 | DS.PCM_ITS ---
Discharge Date and Diagnosis - Problem List Patient Problems: Active and Suspected Problems (Last Reviewed 09/08/18 @ 03:58 by Dc Reeder MD) Intertrochanteric fracture of left hip (Acute) Left humeral fracture (Suspected) Date of Admission: 09/08/18 Date of Discharge: 09/11/18 - Primary Discharge Diagnosis Active and Suspected Problems (Last Reviewed 09/08/18 @ 03:58 by Dc Reeder MD) Intertrochanteric fracture of left hip (Acute) Left humeral fracture (Suspected) - Secondary Discharge Diagnosis Chronic Problems (Last Reviewed 09/08/18 @ 03:58 by Dc Reeder MD) HTN (hypertension) (Chronic) Hospital Course and Treatment Imaging Results: CXR: IMPRESSION: No acute cardiopulmonary disease. Femur XR: IMPRESSION: 1. Mildly displaced intertrochanteric fracture of the proximal left femur. 2. Additional chronic changes, details above. Shoulder XR: IMPRESSION: 1. Impacted fracture of the left humeral surgical neck together with mildly comminuted fracture of the greater tuberosity region of the humeral head. Consults: Orthopedics Operations: - - Date of Procedure: 09/08/18 Primary Surgeon/Physician: Caden Kapoor DO cloth designer: Michael Del Valle Pre-Operative Diagnosis: Comminuted left hip fracture, imtertrochanteric with subtrochanteric extension Post-Operative Diagnosis: same Surgery/Procedure Performed:: ORIF left hip with Intertan nail Description of Surgical Findings:: see op note Estimated Blood Loss: 100cc Specimen's removed: none Type of Anesthesia:: General ASA Class: ASA3 Plus Emergency Procedures: None Summary of Care Provided: Per HPI: The patient is a 68 year old F with a significant history of hypertension; diabetes; neurogenic bladder who presented with a fall. Patient was walking with a cane. Headache came failed seton around bent down to get her cane and then fell backwards hitting her left side onto a counter. Reportedly she hit her head. She reports excruciating pain in her left arm and the left hip. X-ray showed mildly displaced intertrochanteric fracture of the proximal left femur. Left humerus x-ray was suspicious for fracture of greater tuberosity. Emergency department doctor discussed the case with orthopedic surgery, Dr. Vasquez. Per emergency department doctor, Dr. Kapoor, orthopedic surgeon will see patient in a.m. General: Alert, Oriented x3, Cooperative, No apparent distress, - - Hard of hearing HEENT: Atraumatic, EOMI, Normocephalic Oral: Moist Mucosa Neck: Supple, No JVD Lungs: Normal air movement, No rhonchi, min wheeze, No rales Cardiovascular: Regular rate, Regular Rhythm, Normal S1, Normal S2, No murmurs Abdomen: Soft, Non Tender, Non-Distended, No Hepato-splenomegaly Extremities: No edema, Capillary Refill Less than 3 Seconds Skin: No rashes, No breakdown, Incision - Dressing intact Musculoskeletal: Tenderness - To left upper extremity which is in a sling Neurological: Neuro grossly intact, Sensory exam intact to light touch and pain Psych/Mental Status: Normal Affect, Appropriate Hospital Course: 1. Displaced trochanteric fracture of the proximal left femur status post ORIF postop day 3/impacted fracture of the left humeral surgical neck with mildly comminuted fracture of the greater tuberosity - She presented with a fall while she was walking with a cane at home. Her femur fracture was fixed with an InterTAN nail and the pain has been relatively controlled. She is having more difficulty with her humerus fracture which only require sling therapy. Her hospital course has been fairly unremarkable she does have difficulty getting out of bed at times with the left-sided fractures and therefore does not take deep breaths. She is on DuoNeb's here [facility] as she is on oxygen via nasal cannula at 4 L, this is secondary to atelectasis. I have expressed to her the necessity of using the incentive spirometer to keep her lungs open and that if she did not comply the risks would be returning to the hospital with a pneumonia. She and her family do understand this and they state that they will work on it with her. Of note she is on Lovenox for DVT prophylaxis and given her lack of mobility at the moment she may need to continue this at the prison. Her pain is currently controlled with p.o. oxycodone and she was provided a prescription with 15 pills. 2. Urinary incontinence - Does have a bladder stimulator in place, which from my understanding was placed because of a history of urinary retention however she now has significant incontinence and has had a Huston in place and surgery, she will be discharged with this Husotn. 3. Other medical diagnoses were evaluated and her home medications were continued where appropriate Patient Problems: Active and Suspected Problems (Last Reviewed 09/08/18 @ 03:58 by Dc Reeder MD) Intertrochanteric fracture of left hip (Acute) Left humeral fracture (Suspected) - Physical Exam Vital Signs Temp Pulse Resp BP Pulse Ox 98.9 F 98 20 H 143/83 H 93 09/11/18 09:04 09/11/18 09:10 09/11/18 09:10 09/11/18 09:04 09/11/18 09:04 Oxygen Flow Rate (L/min) 4 Oxygen Delivery Method Nasal Cannula Weight: 166 lb 14.239 oz Body Mass Index (BMI) 28.6 Finger Stick Blood Glucose 156 Intake and Output for Last 24 Hours 09/09/18 09/10/18 09/11/18 23:59 23:59 23:59 Intake Total 3261 / 3261 3380 / 3380 2087 / 2087 Output Total 1025 / 1025 3125 / 3125 1974 / 1974 Balance 2236 / 2236 255 / 255 112 / 112 Laboratory Tests Past 24 Hrs 09/11/18 06:10 Sodium 136 Potassium 4.0 Chloride 105 Carbon Dioxide 24.0 Anion Gap 7 BUN 7 Creatinine 0.38 L Estim Creat Clear Calc 45.85 Est GFR (MDRD) Af Amer 214 Est GFR (MDRD) Non-Af 177 BUN/Creatinine Ratio 18.3 Glucose 111 H Calcium 7.8 L Phosphorus 2.7 Magnesium 1.7 POC Glucose 09/11/18 09/10/18 09/10/18 06:30 23:07 16:54 POC Glucose 124 H 148 H 127 H 09/10/18 11:44 POC Glucose 143 H Home Medications: Medications to take at Discharge Metformin HCl [Glucophage] 1 tab PO BID 09/26/17 Amlodipine Besylate [Norvasc] 10 mg PO DAILY 06/16/18 Cholecalciferol (Vitamin D3) [Vitamin D3] 2,000 unit PO DAILY 06/16/18 Hydrochlorothiazide [Hctz] 12.5 mg PO DAILY 06/16/18 Losartan Potassium [Cozaar] 100 mg PO DAILY 06/16/18 Naproxen 500 mg PO QHS 09/08/18 Rosuvastatin Calcium 5 mg PO QHS 09/08/18 Oxycodone [Oxyir] 5 mg PO Q4H PRN PRN 4 Days #15 tab 09/10/18 Following Prescrptions Were Given to Patient: Oxycodone [Oxyir] 5 mg PO Q4H PRN PRN 4 Days #15 tab PRN Reason: Moderate Pain (pain scale 4-5) Primary Care Physician: Cabrera Taylor III, MD [Primary Care Provider] - Please follow up with your Primary Care Physician in: 3-5 days Please Follow Up With: Caden Kapoor DO When: 2-3 weeks Disposition: [facility] facility Minutes spent on discharge:: 35 Patient Condition:: Good Medical Necessity - Tobacco Use Smoking Status: Current every day smoker Meaningful Use Info Meaningful Use Diagnoses (Choose all that apply): None applicable Code Visit Inpatient E&M: 52745 Disch Hosp
--- NOTE | 2018-09-11 11:18 | PCA ---
Faxed signed med list, RN and transfer to extended form to [facility] at [phone]
[2018-09-11 11:50] VITALS: PULSE 999; RESP 32; O2SAT 95
[2018-09-11] MEDS: Insulin Lispro 100 UNIT/ML INSULN.PEN SQ (12:36)
[2018-09-11 12:46] LABS: Bedside Glucose 204 mg/dL (70-110)
[2018-09-11] MEDS: Acetaminophen 325 MG Tablet 650 MG PO (15:18)
== END 2018-09-11 15:30 | disposition skilled nursing facility (03) | DRG 481 ==
LOC: ED 02:28 → MS3 03:41
PROVIDERS: Anesthesiology; Orthopaedic Surgery; Specialist; Admitting Provider Hospitalist; Emergency Provider Emergency Medicine; Family Provider Family Medicine; PCP Family Medicine; Visit Provider Family Medicine
PROC: (CPT 27245; principal; 2018-09-08 15:45)
DX: S72.142A Displaced intertrochanteric fracture of left femur, initial encounter for closed fracture (principal); S42.212A Unspecified displaced fracture of surgical neck of left humerus, initial encounter for closed fracture; S42.252A Displaced fracture of greater tuberosity of left humerus, initial encounter for closed fracture; W18.30XA Fall on same level, unspecified, initial encounter; Y92.010 Kitchen of single-family (private) house as the place of occurrence of the external cause; N31.9 Neuromuscular dysfunction of bladder, unspecified; I10 Essential (primary) hypertension; E11.9 Type 2 diabetes mellitus without complications; F17.200 Nicotine dependence, unspecified, uncomplicated; Z79.899 Other long term (current) drug therapy; Z79.84 Long term (current) use of oral hypoglycemic drugs
CPT/HCPCS: 36415; 51702; 71045; 72170; 73030; 73060; 73502; 73552; 73590; 76000; 80048; 82306; 82340; 82962; 83036; 83735; 83970; 84100; 84443; 85025; 85610; 85730; 86850; 86900; 93005; 94640; 97161; 97166; 97530; 97802; 99285; C1713; C1776; J7030; A4216; J2405

== ENCOUNTER 2019-01-07 13:00 | Outpatient (RCR) | payer MEDICARE, SELFPAY ==
[2018-09-08 14:42] VITALS: BMI 28.6
[2018-12-23 11:33] VITALS: BP 151/78; PULSE 110; RESP 18; TEMP 36.6; BMI 28.6
--- NOTE | 2018-12-23 13:45 | RAD_ITS ---
STUDY: X-RAY - LEFT FOOT CLINICAL: Left heel ulcer. TECHNIQUE: 3 view(s) of the foot. COMPARISON: Radiograph report 02/12/2010. FINDINGS: There is osteopenia. There is a very small posterior calcaneal enthesophyte. There is no demonstrated bone destruction of the posterior tuberosity of the calcaneus. There is a small dorsal osteophyte and joint space narrowing of the first tarsometatarsal articulation. Normal metatarsi. Normal metatarsophalangeal joint of the great toe. Normal tibial and fibular sesamoid bones. Normal interphalangeal joint of the great toe. Normal phalanges of the great toe. Normal second through fifth metatarsophalangeal joints. Normal interphalangeal joints and phalanges of the lesser toes. There is a soft tissue ulcer at the posterior aspect of the heel. RAD/Foot min 3 Views IMPRESSION: Soft tissue ulcer at the posterior aspect of the heel without radiographic manifestations of osteomyelitis. Arthrosis of the first tarsometatarsal articulation. Osteopenia. Electronically Signed: Matt Bullard MD at 13:59 EDT Tel , Service support ,
--- NOTE | 2018-12-23 13:55 | RAD_ITS ---
STUDY: X-RAY - LEFT ANKLE REASON FOR EXAM: Left heel ulcer. TECHNIQUE: 3 view(s) of the ankle. COMPARISON: None. FINDINGS: There is osteopenia. Normal visualized distal tibia and fibula. Normal medial and lateral malleoli. Normal tibiotalar articulation and ankle mortise. There is a very small posterior calcaneal enthesophyte. There is no demonstrated osseous destruction of the posterior tuberosity of the calcaneus. The visualized subtalar, talonavicular, calcaneocuboid and tarsal articulations are normal. There is an soft tissue ulcer at the posterior aspect of the heel. There are small soft tissue calcifications at the medial aspect of the distal lower leg. RAD/Ankle min 3 Views IMPRESSION: Soft tissue ulcer at the posterior aspect of the heel without radiographic manifestations of osteomyelitis. Osteopenia. Electronically Signed: Matt Bullard MD at 14:01 EDT Tel , Service support ,
[2018-12-23 14:46] LABS: Erythrocyte Sedimentation Rate 43 mm/hr (0-30)
[2018-12-23 15:11] LABS: CRP 7.15 mg/L (0.0-3.0); Hemoglobin A1c 6.9 % (4.2-6.3)
--- NOTE | 2018-12-23 16:03 | PCM.WC.HP ---
(1) Chronic ulcer of left heel with fat layer exposed Status: Chronic Current Visit: Yes Code(s): L97.422 - Non-pressure chronic ulcer of left heel and midfoot with fat layer exposed (2) Decubitus ulcer of left heel, stage 4 Status: Acute Current Visit: Yes Code(s): L89.624 - Pressure ulcer of left heel, stage 4 History of Present Illness Date of Service: 12/23/18 Chief Complaint: Nonhealing left heel ulcer. History of Wound: Ms. Mcdaniel is a 68 with past medical history of peripheral arterial disease and type 2 diabetes mellitus who presented to the wound center due to nonhealing left foot ulcer. Initially noted on 11 September, Ulcer has progressively worsened despite being managed at her nursing facility with santyl. Her daughter also states that she had been on antibiotics twice over the last couple of months. However, they have continued to note increased drainage and foul smell from the ulcer. She states that her blood sugars have been well controlled. She denies chills, fever or otherwise feeling unwell. Past Medical History Past Medical History: Chronic Problems (Last Reviewed 09/08/18 @ 03:58 by Dc Reeder MD) HTN (hypertension) (Chronic) Chronic ulcer of left heel with fat layer exposed (Chronic) Surgical History: - - Bladder Surgery x2; right carotid endarectomy; and bladder stimulator placed at back Allergies/Adverse Reactions: Allergies quinapril [From Accupril] Allergy (Verified 09/08/18 00:04) Rash Home Medications: Ambulatory Orders Medication Instructions Recorded Metformin HCl [Glucophage] 1 tab PO BID 09/26/17 Amlodipine Besylate [Norvasc] 10 mg PO DAILY 06/16/18 Cholecalciferol (Vitamin D3) 2,000 unit PO DAILY 06/16/18 [Vitamin D3] Hydrochlorothiazide [Hctz] 12.5 mg PO DAILY 06/16/18 Losartan Potassium [Cozaar] 100 mg PO DAILY 06/16/18 Naproxen 500 mg PO QHS 09/08/18 Rosuvastatin Calcium 5 mg PO QHS 09/08/18 Collagenase [Santyl] 1 applic TOPICAL DAILY 12/23/18 Smoking Status: Current every day smoker Review of Systems Constitutional: Denies: Anorexia, Chills, Fever Eyes: Denies: Blurred vision, Pain HEENT: Reports: Difficulty Hearing. Denies: Difficulty Swallowing Cardiovascular: Denies: Chest Pain, Chest Tightness Respiratory: Denies: Hemoptysis Gastrointestinal: Denies: Abdominal Pain, Hematemesis, Vomiting Genitourinary: Denies: Hematuria Skin: Denies: Jaundice - Physical Exam Vital Signs Temp Pulse Resp BP 97.8 F 110 H 18 151/78 H 12/23/18 11:33 12/23/18 11:33 12/23/18 11:33 12/23/18 11:33 General: Alert, Oriented x3, Cooperative, No apparent distress HEENT: Atraumatic, Normocephalic Oral: Moist Mucosa Neck: Supple Lungs: Normal air movement Cardiovascular: Regular rate, Regular Rhythm, Normal S1, Normal S2 Abdomen: Soft, Non Tender, Obese Extremities: No cyanosis, Edema Skin: Ulcer/ Wound Wound Measurements and Assessment WC - Nurse 1 - General Ulcer Measurement Start: 12/23/18 11:32 Freq: Status: Active Protocol: Activity Type Activity Date Activity User E-Sign Co-Sign Detail Recorded Client Recorded Date Recorded By Document 12/23/18 11:33 [place] [id number] 12/23/18 12:07 [place] 12/23/18 11:33 Wound Center Nurse 1 [Ulcer Assessment] #1 Left Posterior Heel -Combined with other wound No -Current Size (cm) - Length 1.6 -Current Size (cm) - Width 1.6 -Current Size (cm) - Depth 0.7 -Total Square Cm 2.56 -Date of Last Picture (Recall this 12/23/18 field) -Photo Taken Yes -Tunneling No -Undermining/Tunneling No -Circular Undermining No -Exudate Amt Small -Exudate Type Purulent -Wound Margin Thickened & Rolled Under -Granulation Amt Small (1-33%) -Granulation Quality Pale [place] -Slough/Fibrin Yes -Necrosis Amt Large (67-100%) -Necrotic Tissue Type Adherent Slough -Texture (Rachana-wound Skin Appearance) Assessed Callus -Moisture (Rachana-wound Skin Appearance Assessed ) -Color (Rachana-wound Skin Appearance) Assessed -Temperature (Rachana-wound Skin No Abnormality Appearance) (Pt Warm) -Tenderness on Palpation (Rachana-wound No Skin Appearance) -Ulcer Cleansing Wound Cleanser -Foul Odor after Cleansing No -Anesthetic Used 5% Lidocaine Gel [Edema Assessment] -Left Calf (cm) 33.5 -Left Ankle (cm) 21.5 WC - Nurse 2 - General Ulcer CM Notes Start: 12/23/18 11:32 Freq: Status: Active Protocol: Activity Type Activity Date Activity User E-Sign Co-Sign Detail Recorded Client Recorded Date Recorded By Document 12/23/18 12:37 MW [id number] 12/23/18 12:48 MW 12/23/18 12:37 Wound Center Nurse 2 [Procedure/Treatment] #1 Left Posterior Heel -Time 12:44 -Correct Patient Yes -Correct Side, Site, Position Yes -Correct Procedure Yes -Procedure Performed Yes -Type of Procedure Debridement -Clinical Debridement Subcutaneous -Post Debridement Size (cm) - Length 1.9 -Post Debridement Size (cm) - Width 1.4 -Post Debridement Size (cm) - Depth 0.7 -Total Square Cm 2.66 -Wound/Ulcer Outcome Not Healed -Ulcer Cleansing Rinsed/ Irrigated with Saline -Foul Odor after Cleansing No -Bioengineered Tissue No -Bleeding Controlled with Pressure -Offloading No -Treatment Response Procedure Tolerated Well [See Physician Procedure note for Specifics] Pain Scale: 0-10 Numeric [Pain] -Is Patient Pain Free? No Musculoskeletal: No Muscle Wasting Neurological: Cranial nerves II-XII grossly intact Psych/Mental Status: Normal Affect Debridement Note Post-Debridement Measurements/Treatment WC - Nurse 2 - General Ulcer CM Notes Start: 12/23/18 11:32 Freq: Status: Active Protocol: Activity Type Activity Date Activity User E-Sign Co-Sign Detail Recorded Client Recorded Date Recorded By Document 12/23/18 12:37 MW [id number] 12/23/18 12:48 MW 12/23/18 12:37 Wound Center Nurse 2 #1 Left Posterior Heel -Time 12:44 -Correct Patient Yes -Correct Side, Site, Position Yes -Correct Procedure Yes -Procedure Performed Yes -Type of Procedure Debridement -Clinical Debridement Subcutaneous -Post Debridement Size (cm) - Length 1.9 -Post Debridement Size (cm) - Width 1.4 -Post Debridement Size (cm) - Depth 0.7 -Total Square Cm 2.66 -Wound/Ulcer Outcome Not Healed -Ulcer Cleansing Rinsed/ Irrigated with Saline -Foul Odor after Cleansing No -Bioengineered Tissue No -Bleeding Controlled with Pressure -Offloading No -Treatment Response Procedure Tolerated Well Pain Scale: 0-10 Numeric Is Patient Pain Free? No Wound debrided: Left heel Wound Grade/Stage: Stage IV (probes to bone) Type of Debridement: Excisional debridement Anesthesia Used: 4% Lidocaine Solution Depth: Down to and including healthy tissue, in the subcutaneous layer Percentage of wound debrided: 100 Instrument Used: 5mm curette, #15 blade, Forceps Tissue Removed: Slough and devitalized tissue Severity: Fat Layer Exposed - Probes to bone Amount of bleeding with debridement: Mild Bleeding Controlled with: Pressure Patient tolerated procedure well Assessment/Plan Active Problems (Last Reviewed 09/08/18 @ 03:58 by Dc Reeder MD) Chronic ulcer of left heel with fat layer exposed (Chronic) Decubitus ulcer of left heel, stage 4 (Acute) Assessment: Nonhealing left heel decubitus ulcer stage IV. Probes to bone. Type 2 diabetes mellitus. Peripheral vascular disease. Exposed bone with concern for osteomyelitis. Plan: Debridement done as documented above, procedure was well-tolerated. Significant slough. Exposed bone as documented above. Cultures taken. X-ray and arterial studies was ordered. ESR, CRP, A1c and prealbumin were also ordered. Continue Santyl with Adaptic over top daily for now pending results. Offloading strongly recommended. Increased protein intake and optimal blood sugar control recommended. All the questions were answered and they were advised to call with any questions or concerns. Follow-up in 1 week. This note was generated with [employer] software. It may contain incorrect words, spelling, and punctuation that were not noted in checking the note before signing. Follow-up in 1 week.
--- NOTE | 2018-12-23 16:09 | HP.PCM_ITS ---
(1) Chronic ulcer of left heel with fat layer exposed Status: Chronic Current Visit: Yes Code(s): L97.422 - Non-pressure chronic ulcer of left heel and midfoot with fat layer exposed (2) Decubitus ulcer of left heel, stage 4 Status: Acute Current Visit: Yes Code(s): L89.624 - Pressure ulcer of left heel, stage 4 History of Present Illness Date of Service: 12/23/18 Chief Complaint: Nonhealing left heel ulcer. History of Wound: Ms. Mcdaniel is a 68 with past medical history of peripheral arterial disease and type 2 diabetes mellitus who presented to the wound center due to nonhealing left foot ulcer. Initially noted on 11 September, Ulcer has progressively worsened despite being managed at her nursing facility with santyl. Her daughter also states that she had been on antibiotics twice over the last couple of months. However, they have continued to note increased drainage and foul smell from the ulcer. She states that her blood sugars have been well controlled. She denies chills, fever or otherwise feeling unwell. Past Medical History Past Medical History: Chronic Problems (Last Reviewed 09/08/18 @ 03:58 by Dc Reeder MD) HTN (hypertension) (Chronic) Chronic ulcer of left heel with fat layer exposed (Chronic) Surgical History: - - Bladder Surgery x2; right carotid endarectomy; and bladder stimulator placed at back Allergies/Adverse Reactions: Allergies quinapril [From Accupril] Allergy (Verified 09/08/18 00:04) Rash Home Medications: Ambulatory Orders Medication Instructions Recorded Metformin HCl [Glucophage] 1 tab PO BID 09/26/17 Amlodipine Besylate [Norvasc] 10 mg PO DAILY 06/16/18 Cholecalciferol (Vitamin D3) 2,000 unit PO DAILY 06/16/18 [Vitamin D3] Hydrochlorothiazide [Hctz] 12.5 mg PO DAILY 06/16/18 Losartan Potassium [Cozaar] 100 mg PO DAILY 06/16/18 Naproxen 500 mg PO QHS 09/08/18 Rosuvastatin Calcium 5 mg PO QHS 09/08/18 Collagenase [Santyl] 1 applic TOPICAL DAILY 12/23/18 Smoking Status: Current every day smoker Review of Systems Constitutional: Denies: Anorexia, Chills, Fever Eyes: Denies: Blurred vision, Pain HEENT: Reports: Difficulty Hearing. Denies: Difficulty Swallowing Cardiovascular: Denies: Chest Pain, Chest Tightness Respiratory: Denies: Hemoptysis Gastrointestinal: Denies: Abdominal Pain, Hematemesis, Vomiting Genitourinary: Denies: Hematuria Skin: Denies: Jaundice - Physical Exam Vital Signs Temp Pulse Resp BP 97.8 F 110 H 18 151/78 H 12/23/18 11:33 12/23/18 11:33 12/23/18 11:33 12/23/18 11:33 General: Alert, Oriented x3, Cooperative, No apparent distress HEENT: Atraumatic, Normocephalic Oral: Moist Mucosa Neck: Supple Lungs: Normal air movement Cardiovascular: Regular rate, Regular Rhythm, Normal S1, Normal S2 Abdomen: Soft, Non Tender, Obese Extremities: No cyanosis, Edema Skin: Ulcer/ Wound Wound Measurements and Assessment WC - Nurse 1 - General Ulcer Measurement Start: 12/23/18 11:32 Freq: Status: Active Protocol: Activity Type Activity Date Activity User E-Sign Co-Sign Detail Recorded Client Recorded Date Recorded By Document 12/23/18 11:33 DE [id number] 12/23/18 12:07 [place] 12/23/18 11:33 Wound Center Nurse 1 [Ulcer Assessment] #1 Left Posterior Heel -Combined with other wound No -Current Size (cm) - Length 1.6 -Current Size (cm) - Width 1.6 -Current Size (cm) - Depth 0.7 -Total Square Cm 2.56 -Date of Last Picture (Recall this 12/23/18 field) -Photo Taken Yes -Tunneling No -Undermining/Tunneling No -Circular Undermining No -Exudate Amt Small -Exudate Type Purulent -Wound Margin Thickened & Rolled Under -Granulation Amt Small (1-33%) -Granulation Quality Pale [place] -Slough/Fibrin Yes -Necrosis Amt Large (67-100%) -Necrotic Tissue Type Adherent Slough -Texture (Rachana-wound Skin Appearance) Assessed Callus -Moisture (Rachana-wound Skin Appearance Assessed ) -Color (Rachana-wound Skin Appearance) Assessed -Temperature (Rachana-wound Skin No Abnormality Appearance) (Pt Warm) -Tenderness on Palpation (Rachana-wound No Skin Appearance) -Ulcer Cleansing Wound Cleanser -Foul Odor after Cleansing No -Anesthetic Used 5% Lidocaine Gel [Edema Assessment] -Left Calf (cm) 33.5 -Left Ankle (cm) 21.5 WC - Nurse 2 - General Ulcer CM Notes Start: 12/23/18 11:32 Freq: Status: Active Protocol: Activity Type Activity Date Activity User E-Sign Co-Sign Detail Recorded Client Recorded Date Recorded By Document 12/23/18 12:37 MW [id number] 12/23/18 12:48 MW 12/23/18 12:37 Wound Center Nurse 2 [Procedure/Treatment] #1 Left Posterior Heel -Time 12:44 -Correct Patient Yes -Correct Side, Site, Position Yes -Correct Procedure Yes -Procedure Performed Yes -Type of Procedure Debridement -Clinical Debridement Subcutaneous -Post Debridement Size (cm) - Length 1.9 -Post Debridement Size (cm) - Width 1.4 -Post Debridement Size (cm) - Depth 0.7 -Total Square Cm 2.66 -Wound/Ulcer Outcome Not Healed -Ulcer Cleansing Rinsed/ Irrigated with Saline -Foul Odor after Cleansing No -Bioengineered Tissue No -Bleeding Controlled with Pressure -Offloading No -Treatment Response Procedure Tolerated Well [See Physician Procedure note for Specifics] Pain Scale: 0-10 Numeric [Pain] -Is Patient Pain Free? No Musculoskeletal: No Muscle Wasting Neurological: Cranial nerves II-XII grossly intact Psych/Mental Status: Normal Affect Debridement Note Post-Debridement Measurements/Treatment WC - Nurse 2 - General Ulcer CM Notes Start: 12/23/18 11:32 Freq: Status: Active Protocol: Activity Type Activity Date Activity User E-Sign Co-Sign Detail Recorded Client Recorded Date Recorded By Document 12/23/18 12:37 MW [id number] 12/23/18 12:48 MW 12/23/18 12:37 Wound Center Nurse 2 #1 Left Posterior Heel -Time 12:44 -Correct Patient Yes -Correct Side, Site, Position Yes -Correct Procedure Yes -Procedure Performed Yes -Type of Procedure Debridement -Clinical Debridement Subcutaneous -Post Debridement Size (cm) - Length 1.9 -Post Debridement Size (cm) - Width 1.4 -Post Debridement Size (cm) - Depth 0.7 -Total Square Cm 2.66 -Wound/Ulcer Outcome Not Healed -Ulcer Cleansing Rinsed/ Irrigated with Saline -Foul Odor after Cleansing No -Bioengineered Tissue No -Bleeding Controlled with Pressure -Offloading No -Treatment Response Procedure Tolerated Well Pain Scale: 0-10 Numeric Is Patient Pain Free? No Wound debrided: Left heel Wound Grade/Stage: Stage IV (probes to bone) Type of Debridement: Excisional debridement Anesthesia Used: 4% Lidocaine Solution Depth: Down to and including healthy tissue, in the subcutaneous layer Percentage of wound debrided: 100 Instrument Used: 5mm curette, #15 blade, Forceps Tissue Removed: Slough and devitalized tissue Severity: Fat Layer Exposed - Probes to bone Amount of bleeding with debridement: Mild Bleeding Controlled with: Pressure Patient tolerated procedure well Assessment/Plan Active Problems (Last Reviewed 09/08/18 @ 03:58 by Dc Reeder MD) Chronic ulcer of left heel with fat layer exposed (Chronic) Decubitus ulcer of left heel, stage 4 (Acute) Assessment: Nonhealing left heel decubitus ulcer stage IV. Probes to bone. Type 2 diabetes mellitus. Peripheral vascular disease. Exposed bone with concern for osteomyelitis. Plan: Debridement done as documented above, procedure was well-tolerated. Significant slough. Exposed bone as documented above. Cultures taken. X-ray and arterial studies was ordered. ESR, CRP, A1c and prealbumin were also ordered. Continue Santyl with Adaptic over top daily for now pending results. Offloading strongly recommended. Increased protein intake and optimal blood sugar control recommended. All the questions were answered and they were advis ed to call with any questions or concerns. Follow-up in 1 week. This note was generated with [employer] software. It may contain incorrect words, spelling, and punctuation that were not noted in checking the note before signing. Follow-up in 1 week.
[2018-12-30 11:27] VITALS: BP 151/71; PULSE 115; RESP 22; TEMP 37.2; BMI 28.6
--- NOTE | 2018-12-30 13:33 | PCM.WC.PN ---
(1) Chronic ulcer of left heel with fat layer exposed Status: Chronic Code(s): L97.422 - Non-pressure chronic ulcer of left heel and midfoot with fat layer exposed (2) Decubitus ulcer of left heel, stage 4 Status: Acute Code(s): L89.624 - Pressure ulcer of left heel, stage 4 Type of Wound Date of Service: 12/30/18 Chief Complaint: Nonhealing left heel ulcer. History of Wound: Ms. Mcdaniel is a 68 with past medical history of peripheral arterial disease and type 2 diabetes mellitus who presented to the wound center due to nonhealing left foot ulcer. Initially noted on 11 September, Ulcer has progressively worsened despite being managed at her nursing facility with santyl. Her daughter also states that she had been on antibiotics twice over the last couple of months. However, they have continued to note increased drainage and foul smell from the ulcer. She states that her blood sugars have been well controlled. She denies chills, fever or otherwise feeling unwell. Progress of Wound: Stable. No new concerns at this time. X-ray done not suggestive of osteomyelitis. - Physical Exam Vital Signs Temp Pulse Resp BP 99 F 115 H 22 H 151/71 H 12/30/18 11:27 12/30/18 11:27 12/30/18 11:27 12/30/18 11:27 General: Alert, Oriented x3, Cooperative, No apparent distress HEENT: Atraumatic, Normocephalic Oral: Moist Mucosa Neck: Supple Lungs: Normal air movement Abdomen: Non Tender, Obese Extremities: No cyanosis, Edema Skin: Ulcer/ Wound Wound Measurements and Assessment WC - Nurse 1 - General Ulcer Measurement Start: 12/23/18 11:32 Freq: Status: Active Protocol: Activity Type Activity Date Activity User E-Sign Co-Sign Detail Recorded Client Recorded Date Recorded By Document 12/30/18 11:27 OK [id number] 12/30/18 11:41 [place] 12/30/18 11:27 Wound Center Nurse 1 [Ulcer Assessment] #1 Left Posterior Heel -Current Size (cm) - Length 1.5 -Current Size (cm) - Width 1.5 -Current Size (cm) - Depth 0.5 -Total Square Cm 2.25 -Granulation Amt Small (1-33%) -Granulation Quality Pale [place] -Necrosis Amt Large (67-100%) -Necrotic Tissue Type Adherent Slough -Texture (Rachana-wound Skin Appearance) Assessed -Moisture (Rachana-wound Skin Appearance Assessed ) Maceration -Color (Rachana-wound Skin Appearance) Assessed -Temperature (Rachana-wound Skin No Abnormality Appearance) (Pt Warm) -Tenderness on Palpation (Rachana-wound No Skin Appearance) -Ulcer Cleansing Rinsed/ Irrigated with Saline -Foul Odor after Cleansing No -Anesthetic Used 4% Lidocaine Solution [Edema Assessment] -Right Calf (cm) 35.5 -Right Ankle (cm) 21.5 -Left Calf (cm) 34 -Left Ankle (cm) 21.5 WC - Nurse 2 - General Ulcer CM Notes Start: 12/23/18 11:32 Freq: Status: Active Protocol: Activity Type Activity Date Activity User E-Sign Co-Sign Detail Recorded Client Recorded Date Recorded By Document 12/30/18 12:22 MW [id number] 12/30/18 12:31 MW 12/30/18 12:22 Wound Center Nurse 2 [Procedure/Treatment] #1 Left Posterior Heel -Time 12:23 -Correct Patient Yes -Correct Side, Site, Position Yes -Correct Procedure Yes -Procedure Performed Yes -Type of Procedure Debridement -Clinical Debridement Subcutaneous -Post Debridement Size (cm) - Length 1.5 -Post Debridement Size (cm) - Width 1.5 -Post Debridement Size (cm) - Depth 0.6 -Total Square Cm 2.25 -Wound/Ulcer Outcome Not Healed -Ulcer Cleansing Rinsed/ Irrigated with Saline -Foul Odor after Cleansing No -Bioengineered Tissue No -Bleeding Controlled with Pressure -Offloading No -Treatment Response Procedure Tolerated Well [See Physician Procedure note for Specifics] Pain Scale: 0-10 Numeric [Pain] -Is Patient Pain Free? Yes Musculoskeletal: No Muscle Wasting Neurological: Cranial nerves II-XII grossly intact Psych/Mental Status: Normal Affect Debridement Note Post-Debridement Measurements/Treatment WC - Nurse 2 - General Ulcer CM Notes Start: 12/23/18 11:32 Freq: Status: Active Protocol: Activity Type Activity Date Activity User E-Sign Co-Sign Detail Recorded Client Recorded Date Recorded By Document 12/23/18 12:37 MW [id number] 12/23/18 12:48 MW Document 12/30/18 12:22 MW [id number] 12/30/18 12:31 MW 12/23/18 12/30/18 12:37 12:22 Wound Center Nurse 2 #1 Left Posterior Heel -Time 12:44 12:23 -Correct Patient Yes Yes -Correct Side, Site, Position Yes Yes -Correct Procedure Yes Yes -Procedure Performed Yes Yes -Type of Procedure Debridement Debridement -Clinical Debridement Subcutaneous Subcutaneous -Post Debridement Size (cm) - Length 1.9 1.5 -Post Debridement Size (cm) - Width 1.4 1.5 -Post Debridement Size (cm) - Depth 0.7 0.6 -Total Square Cm 2.66 2.25 -Wound/Ulcer Outcome Not Healed Not Healed -Ulcer Cleansing Rinsed/ Rinsed/ Irrigated with Irrigated with Saline Saline -Foul Odor after Cleansing No No -Bioengineered Tissue No No -Bleeding Controlled with Pressure Pressure -Offloading No No -Treatment Response Procedure Procedure Tolerated Well Tolerated Well Pain Scale: 0-10 Numeric Is Patient Pain Free? No Yes Wound debrided: Left heel Wound Grade/Stage: Stage IV Type of Debridement: Excisional debridement Anesthesia Used: 4% Lidocaine Solution Depth: Down to and including healthy tissue, in the subcutaneous layer Percentage of wound debrided: 100 Instrument Used: 5mm curette Tissue Removed: Slough and devitalized tissue Severity: Fat Layer Exposed Amount of bleeding with debridement: Mild Bleeding Controlled with: Pressure Patient tolerated procedure well Assessment/Plan Clinical Impression(s) from Imaging Studies Foot X-Ray 12/23/18 13:45 IMPRESSION: Soft tissue ulcer at the posterior aspect of the heel without radiographic manifestations of osteomyelitis. Arthrosis of the first tarsometatarsal articulation. Osteopenia. Electronically Signed: Matt Bullard MD at 13:59 EDT Tel , Service support , Ankle X-Ray 12/23/18 13:55 IMPRESSION: Soft tissue ulcer at the posterior aspect of the heel without radiographic manifestations of osteomyelitis. Osteopenia. Electronically Signed: Matt Bullard MD at 14:01 EDT Tel , Service support , Assessment: Nonhealing left heel decubitus ulcer stage IV. Probes to bone. Type 2 diabetes mellitus. Peripheral vascular disease. Exposed bone with concern for osteomyelitis. Plan: Debridement done as documented above, procedure was well-tolerated. Better granulation tissue today. Still significant slough present though. X-ray done was not suggestive of osteomyelitis. Augmentin and ciprofloxacin per culture and sensitivity. Awaiting BRIDGET. Continue Santyl with Adaptic over top daily. Offloading strongly recommended. Increased protein intake and optimal blood sugar control recommended. All the questions were answered and they were advised to call with any questions or concerns. Follow-up in 1 week. This note was generated with [employer] dictation software. It may contain incorrect words, spelling, and punctuation that were not noted in checking the note before signing. Follow-up in 1 week.
--- NOTE | 2018-12-30 13:37 | PN.PCM_ITS ---
(1) Chronic ulcer of left heel with fat layer exposed Status: Chronic Code(s): L97.422 - Non-pressure chronic ulcer of left heel and midfoot with fat layer exposed (2) Decubitus ulcer of left heel, stage 4 Status: Acute Code(s): L89.624 - Pressure ulcer of left heel, stage 4 Type of Wound Date of Service: 12/30/18 Chief Complaint: Nonhealing left heel ulcer. History of Wound: Ms. Mcdaniel is a 68 with past medical history of peripheral arterial disease and type 2 diabetes mellitus who presented to the wound center due to nonhealing left foot ulcer. Initially noted on 11 September, Ulcer has progressively worsened despite being managed at her nursing facility with santyl. Her daughter also states that she had been on antibiotics twice over the last couple of months. However, they have continued to note increased drainage and foul smell from the ulcer. She states that her blood sugars have been well controlled. She denies chills, fever or otherwise feeling unwell. Progress of Wound: Stable. No new concerns at this time. X-ray done not suggestive of osteomyelitis. - Physical Exam Vital Signs Temp Pulse Resp BP 99 F 115 H 22 H 151/71 H 12/30/18 11:27 12/30/18 11:27 12/30/18 11:27 12/30/18 11:27 General: Alert, Oriented x3, Cooperative, No apparent distress HEENT: Atraumatic, Normocephalic Oral: Moist Mucosa Neck: Supple Lungs: Normal air movement Abdomen: Non Tender, Obese Extremities: No cyanosis, Edema Skin: Ulcer/ Wound Wound Measurements and Assessment WC - Nurse 1 - General Ulcer Measurement Start: 12/23/18 11:32 Freq: Status: Active Protocol: Activity Type Activity Date Activity User E-Sign Co-Sign Detail Recorded Client Recorded Date Recorded By Document 12/30/18 11:27 MO [id number] 12/30/18 11:41 MO 12/30/18 11:27 Wound Center Nurse 1 [Ulcer Assessment] #1 Left Posterior Heel -Current Size (cm) - Length 1.5 -Current Size (cm) - Width 1.5 -Current Size (cm) - Depth 0.5 -Total Square Cm 2.25 -Granulation Amt Small (1-33%) -Granulation Quality Pale Garnet -Necrosis Amt Large (67-100%) -Necrotic Tissue Type Adherent Slough -Texture (Rachana-wound Skin Appearance) Assessed -Moisture (Rachana-wound Skin Appearance Assessed ) Maceration -Color (Rachana-wound Skin Appearance) Assessed -Temperature (Rachana-wound Skin No Abnormality Appearance) (Pt Warm) -Tenderness on Palpation (Rachana-wound No Skin Appearance) -Ulcer Cleansing Rinsed/ Irrigated with Saline -Foul Odor after Cleansing No -Anesthetic Used 4% Lidocaine Solution [Edema Assessment] -Right Calf (cm) 35.5 -Right Ankle (cm) 21.5 -Left Calf (cm) 34 -Left Ankle (cm) 21.5 WC - Nurse 2 - General Ulcer CM Notes Start: 12/23/18 11:32 Freq: Status: Active Protocol: Activity Type Activity Date Activity User E-Sign Co-Sign Detail Recorded Client Recorded Date Recorded By Document 12/30/18 12:22 MW [id number] 12/30/18 12:31 MW 12/30/18 12:22 Wound Center Nurse 2 [Procedure/Treatment] #1 Left Posterior Heel -Time 12:23 -Correct Patient Yes -Correct Side, Site, Position Yes -Correct Procedure Yes -Procedure Performed Yes -Type of Procedure Debridement -Clinical Debridement Subcutaneous -Post Debridement Size (cm) - Length 1.5 -Post Debridement Size (cm) - Width 1.5 -Post Debridement Size (cm) - Depth 0.6 -Total Square Cm 2.25 -Wound/Ulcer Outcome Not Healed -Ulcer Cleansing Rinsed/ Irrigated with Saline -Foul Odor after Cleansing No -Bioengineered Tissue No -Bleeding Controlled with Pressure -Offloading No -Treatment Response Procedure Tolerated Well [See Physician Procedure note for Specifics] Pain Scale: 0-10 Numeric [Pain] -Is Patient Pain Free? Yes Musculoskeletal: No Muscle Wasting Neurological: Cranial nerves II-XII grossly intact Psych/Mental Status: Normal Affect Debridement Note Post-Debridement Measurements/Treatment WC - Nurse 2 - General Ulcer CM Notes Start: 12/23/18 11:32 Freq: Status: Active Protocol: Activity Type Activity Date Activity User E-Sign Co-Sign Detail Recorded Client Recorded Date Recorded By Document 12/23/18 12:37 MW [id number] 12/23/18 12:48 MW Document 12/30/18 12:22 MW [id number] 12/30/18 12:31 MW 12/23/18 12/30/18 12:37 12:22 Wound Center Nurse 2 #1 Left Posterior Heel -Time 12:44 12:23 -Correct Patient Yes Yes -Correct Side, Site, Position Yes Yes -Correct Procedure Yes Yes -Procedure Performed Yes Yes -Type of Procedure Debridement Debridement -Clinical Debridement Subcutaneous Subcutaneous -Post Debridement Size (cm) - Length 1.9 1.5 -Post Debridement Size (cm) - Width 1.4 1.5 -Post Debridement Size (cm) - Depth 0.7 0.6 -Total Square Cm 2.66 2.25 -Wound/Ulcer Outcome Not Healed Not Healed -Ulcer Cleansing Rinsed/ Rinsed/ Irrigated with Irrigated with Saline Saline -Foul Odor after Cleansing No No -Bioengineered Tissue No No -Bleeding Controlled with Pressure Pressure -Offloading No No -Treatment Response Procedure Procedure Tolerated Well Tolerated Well Pain Scale: 0-10 Numeric Is Patient Pain Free? No Yes Wound debrided: Left heel Wound Grade/Stage: Stage IV Type of Debridement: Excisional debridement Anesthesia Used: 4% Lidocaine Solution Depth: Down to and including healthy tissue, in the subcutaneous layer Percentage of wound debrided: 100 Instrument Used: 5mm curette Tissue Removed: Slough and devitalized tissue Severity: Fat Layer Exposed Amount of bleeding with debridement: Mild Bleeding Controlled with: Pressure Patient tolerated procedure well Assessment/Plan Clinical Impression(s) from Imaging Studies Foot X-Ray 12/23/18 13:45 IMPRESSION: Soft tissue ulcer at the posterior aspect of the heel without radiographic manifestations of osteomyelitis. Arthrosis of the first tarsometatarsal articulation. Osteopenia. Electronically Signed: Matt Bullard MD at 13:59 EDT Tel , Service support , Ankle X-Ray 12/23/18 13:55 IMPRESSION: Soft tissue ulcer at the posterior aspect of the heel without radiographic manifestations of osteomyelitis. Osteopenia. Electronically Signed: Matt Bullard MD at 14:01 EDT Tel , Service support , Assessment: Nonhealing left heel decubitus ulcer stage IV. Probes to bone. Type 2 diabetes mellitus. Peripheral vascular disease. Exposed bone with concern for osteomyelitis. Plan: Debridement done as documented above, procedure was well-tolerated. Better granulation tissue today. Still significant slough present though. X- ray done was not suggestive of osteomyelitis. Augmentin and ciprofloxacin per culture and sensitivity. Awaiting BRIDGET. Continue Santyl with Adaptic over top daily. Offloading strongly recommended. Increased protein intake and optimal blood sugar control recommended. All the questions were answered and they were advised to call with any questions or concerns. Follow-up in 1 week. This note was generated with [employer] dictation software. It may contain incorrect words, spelling, and punctuation that were not noted in checking the note before signing. Follow-up in 1 week.
[2019-01-06 09:59] VITALS: BP 143/73; PULSE 110; RESP 18; TEMP 37; BMI 28.6
--- NOTE | 2019-01-06 11:21 | PCM.WC.PN ---
(1) Chronic ulcer of left heel with fat layer exposed Status: Chronic Current Visit: No Code(s): L97.422 - Non-pressure chronic ulcer of left heel and midfoot with fat layer exposed (2) Decubitus ulcer of left heel, stage 4 Status: Chronic Current Visit: Yes Code(s): L89.624 - Pressure ulcer of left heel, stage 4 Type of Wound Chief Complaint: Nonhealing left heel ulcer. History of Wound: Ms. Mcdaniel is a 68 with past medical history of peripheral arterial disease and type 2 diabetes mellitus who presented to the wound center due to nonhealing left foot ulcer. Initially noted on 11 September, Ulcer has progressively worsened despite being managed at her nursing facility with char. Her daughter also states that she had been on antibiotics twice over the last couple of months. However, they have continued to note increased drainage and foul smell from the ulcer. She states that her blood sugars have been well controlled. She denies chills, fever or otherwise feeling unwell. Progress of Wound: Improving. No new concerns at this time. - Physical Exam Vital Signs Temp Pulse Resp BP 98.6 F 110 H 18 143/73 H 01/06/19 09:59 01/06/19 09:59 01/06/19 09:59 01/06/19 09:59 General: Alert, Oriented x3, Cooperative, No apparent distress HEENT: Atraumatic, Normocephalic Oral: Moist Mucosa Neck: Supple Lungs: Wheezes Abdomen: Obese Extremities: Edema Skin: Ulcer/ Wound Wound Measurements and Assessment WC - Nurse 1 - General Ulcer Measurement Start: 12/23/18 11:32 Freq: Status: Active Protocol: Activity Type Activity Date Activity User E-Sign Co-Sign Detail Recorded Client Recorded Date Recorded By Document 01/06/19 09:59 AN [id number] 01/06/19 10:18 AN 01/06/19 09:59 Wound Center Nurse 1 [Ulcer Assessment] #1 Left Posterior Heel -Current Size (cm) - Length 1.2 -Current Size (cm) - Width 1.3 -Current Size (cm) - Depth 0.4 -Total Square Cm 1.56 -Classification - Thickness Full Thickness without Exposed Support Structure -Exudate Amt Medium -Exudate Type Serosanguineous -Wound Margin Thickened -Granulation Amt Large (67-100%) -Granulation Quality Pale -Necrosis Amt Large (67-100%) -Necrotic Tissue Type Eschar -Structure Exposed None/Limited to Skin Breakdown -Texture (Rachana-wound Skin Appearance) Assessed Callus -Moisture (Rachana-wound Skin Appearance Assessed ) Maceration -Color (Rachana-wound Skin Appearance) Assessed -Temperature (Rachana-wound Skin No Abnormality Appearance) (Pt Warm) -Tenderness on Palpation (Rachana-wound Yes Skin Appearance) -Ulcer Cleansing Rinsed/ Irrigated with Saline -Foul Odor after Cleansing No -Anesthetic Used 4% Lidocaine Solution - Nurse 2 - General Ulcer CM Notes Start: 12/23/18 11:32 Freq: Status: Active Protocol: Activity Type Activity Date Activity User E-Sign Co-Sign Detail Recorded Client Recorded Date Recorded By Document 01/06/19 10:30 MW [id number] 01/06/19 10:31 MW 01/06/19 10:30 Wound Center Nurse 2 [Procedure/Treatment] -Time 10:31 -Correct Patient Yes -Correct Side, Site, Position Yes -Correct Procedure Yes -Procedure Performed Yes -Type of Procedure Debridement -Clinical Debridement Subcutaneous -Post Debridement Size (cm) - Length 1.4 -Post Debridement Size (cm) - Width 1.0 -Post Debridement Size (cm) - Depth 0.4 -Total Square Cm 1.40 -Wound/Ulcer Outcome Not Healed -Ulcer Cleansing Rinsed/ Irrigated with Saline -Foul Odor after Cleansing No -Bioengineered Tissue No -Bleeding Controlled with Pressure -Offloading No -Treatment Response Procedure Tolerated Well [See Physician Procedure note for Specifics] Pain Scale: 0-10 Numeric [Pain] -Is Patient Pain Free? Yes Musculoskeletal: No Muscle Wasting Neurological: Cranial nerves II-XII grossly intact Psych/Mental Status: Normal Affect Debridement Note Post-Debridement Measurements/Treatment - Nurse 2 - General Ulcer CM Notes Start: 12/23/18 11:32 Freq: Status: Active Protocol: Activity Type Activity Date Activity User E-Sign Co-Sign Detail Recorded Client Recorded Date Recorded By Document 12/23/18 12:37 MW [id number] 12/23/18 12:48 MW Document 12/30/18 12:22 MW [id number] 12/30/18 12:31 MW Document 01/06/19 10:30 MW [id number] 01/06/19 10:31 MW 0412/30/18 01/06/19 12:37 12:22 10:30 Wound Center Nurse 2 #1 Left Posterior Heel -Time 12:44 12:23 10:31 -Correct Patient Yes Yes Yes -Correct Side, Site, Position Yes Yes Yes -Correct Procedure Yes Yes Yes -Procedure Performed Yes Yes Yes -Type of Procedure Debridement Debridement Debridement -Clinical Debridement Subcutaneous Subcutaneous Subcutaneous -Post Debridement Size (cm) - Length 1.9 1.5 1.4 -Post Debridement Size (cm) - Width 1.4 1.5 1.0 -Post Debridement Size (cm) - Depth 0.7 0.6 0.4 -Total Square Cm 2.66 2.25 1.40 -Wound/Ulcer Outcome Not Healed Not Healed Not Healed -Ulcer Cleansing Rinsed/ Rinsed/ Rinsed/ Irrigated with Irrigated with Irrigated with Saline Saline Saline -Foul Odor after Cleansing No No No -Bioengineered Tissue No No No -Bleeding Controlled with Pressure Pressure Pressure -Offloading No No No -Treatment Response Procedure Procedure Procedure Tolerated Well Tolerated Well Tolerated Well Pain Scale: 0-10 Numeric Is Patient Pain Free? No Yes Yes Wound debrided: Left heel Wound Grade/Stage: Stage IV Type of Debridement: Excisional debridement Anesthesia Used: 4% Lidocaine Solution Depth: Down to and including healthy tissue, in the subcutaneous layer Percentage of wound debrided: 100 Instrument Used: 3mm curette Tissue Removed: Slough and devitalized tissue Severity: Fat Layer Exposed Amount of bleeding with debridement: Mild Bleeding Controlled with: Pressure Patient tolerated procedure well Assessment/Plan Clinical Impression(s) from Imaging Studies Foot X-Ray 12/23/18 13:45 IMPRESSION: Soft tissue ulcer at the posterior aspect of the heel without radiographic manifestations of osteomyelitis. Arthrosis of the first tarsometatarsal articulation. Osteopenia. Electronically Signed: Matt Bullard MD at 13:59 EDT Tel , Service support , Ankle X-Ray 12/23/18 13:55 IMPRESSION: Soft tissue ulcer at the posterior aspect of the heel without radiographic manifestations of osteomyelitis. Osteopenia. Electronically Signed: Matt Bullard MD at 14:01 EDT Tel , Service support , Active Problems (Last Reviewed 09/08/18 @ 03:58 by Dc Reeder MD) Decubitus ulcer of left heel, stage 4 (Chronic) Assessment: Nonhealing left heel decubitus ulcer stage IV. Probes to bone. Type 2 diabetes mellitus. Peripheral vascular disease. Exposed bone with concern for osteomyelitis. Plan: Debridement done as documented above, procedure was well-tolerated. Improving. No new concerns. Continue Santyl with Adaptic over top daily. Due to chronicity of wound, with better granulation tissue and no concerns for osteomyelitis at this time, I believe she will benefit from an advanced skin substitute. Will apply. Offloading strongly recommended. Increased protein intake and optimal blood sugar control recommended. All the questions were answered and they were advised to call with any questions or concerns. Follow-up in 1 week. This note was generated with [employer] dictation software. It may contain incorrect words, spelling, and punctuation that were not noted in checking the note before signing.
--- NOTE | 2019-01-06 11:25 | PN.PCM_ITS ---
(1) Chronic ulcer of left heel with fat layer exposed Status: Chronic Current Visit: No Code(s): L97.422 - Non-pressure chronic ulcer of left heel and midfoot with fat layer exposed (2) Decubitus ulcer of left heel, stage 4 Status: Chronic Current Visit: Yes Code(s): L89.624 - Pressure ulcer of left heel, stage 4 Type of Wound Chief Complaint: Nonhealing left heel ulcer. History of Wound: Ms. Mcdaniel is a 68 with past medical history of peripheral arterial disease and type 2 diabetes mellitus who presented to the wound center due to nonhealing left foot ulcer. Initially noted on 11 September, Ulcer has progressively worsened despite being managed at her nursing facility with char. Her daughter also states that she had been on antibiotics twice over the last couple of months. However, they have continued to note increased drainage and foul smell from the ulcer. She states that her blood sugars have been well controlled. She denies chills, fever or otherwise feeling unwell. Progress of Wound: Improving. No new concerns at this time. - Physical Exam Vital Signs Temp Pulse Resp BP 98.6 F 110 H 18 143/73 H 01/06/19 09:59 01/06/19 09:59 01/06/19 09:59 01/06/19 09:59 General: Alert, Oriented x3, Cooperative, No apparent distress HEENT: Atraumatic, Normocephalic Oral: Moist Mucosa Neck: Supple Lungs: Wheezes Abdomen: Obese Extremities: Edema Skin: Ulcer/ Wound Wound Measurements and Assessment WC - Nurse 1 - General Ulcer Measurement Start: 12/23/18 11:32 Freq: Status: Active Protocol: Activity Type Activity Date Activity User E-Sign Co-Sign Detail Recorded Client Recorded Date Recorded By Document 01/06/19 09:59 AN [id number] 01/06/19 10:18 AN 01/06/19 09:59 Wound Center Nurse 1 [Ulcer Assessment] #1 Left Posterior Heel -Current Size (cm) - Length 1.2 -Current Size (cm) - Width 1.3 -Current Size (cm) - Depth 0.4 -Total Square Cm 1.56 -Classification - Thickness Full Thickness without Exposed Support Structure -Exudate Amt Medium -Exudate Type Serosanguineous -Wound Margin Thickened -Granulation Amt Large (67-100%) -Granulation Quality Pale -Necrosis Amt Large (67-100%) -Necrotic Tissue Type Eschar -Structure Exposed None/Limited to Skin Breakdown -Texture (Rachana-wound Skin Appearance) Assessed Callus -Moisture (Rachana-wound Skin Appearance Assessed ) Maceration -Color (Rachana-wound Skin Appearance) Assessed -Temperature (Rachana-wound Skin No Abnormality Appearance) (Pt Warm) -Tenderness on Palpation (Rachana-wound Yes Skin Appearance) -Ulcer Cleansing Rinsed/ Irrigated with Saline -Foul Odor after Cleansing No -Anesthetic Used 4% Lidocaine Solution - Nurse 2 - General Ulcer CM Notes Start: 12/23/18 11:32 Freq: Status: Active Protocol: Activity Type Activity Date Activity User E-Sign Co-Sign Detail Recorded Client Recorded Date Recorded By Document 01/06/19 10:30 MW [id number] 01/06/19 10:31 MW 01/06/19 10:30 Wound Center Nurse 2 [Procedure/Treatment] -Time 10:31 -Correct Patient Yes -Correct Side, Site, Position Yes -Correct Procedure Yes -Procedure Performed Yes -Type of Procedure Debridement -Clinical Debridement Subcutaneous -Post Debridement Size (cm) - Length 1.4 -Post Debridement Size (cm) - Width 1.0 -Post Debridement Size (cm) - Depth 0.4 -Total Square Cm 1.40 -Wound/Ulcer Outcome Not Healed -Ulcer Cleansing Rinsed/ Irrigated with Saline -Foul Odor after Cleansing No -Bioengineered Tissue No -Bleeding Controlled with Pressure -Offloading No -Treatment Response Procedure Tolerated Well [See Physician Procedure note for Specifics] Pain Scale: 0-10 Numeric [Pain] -Is Patient Pain Free? Yes Musculoskeletal: No Muscle Wasting Neurological: Cranial nerves II-XII grossly intact Psych/Mental Status: Normal Affect Debridement Note Post-Debridement Measurements/Treatment - Nurse 2 - General Ulcer CM Notes Start: 12/23/18 11:32 Freq: Status: Active Protocol: Activity Type Activity Date Activity User E-Sign Co-Sign Detail Recorded Client Recorded Date Recorded By Document 12/23/18 12:37 MW [id number] 12/23/18 12:48 MW Document 12/30/18 12:22 MW [id number] 12/30/18 12:31 MW Document 01/06/19 10:30 MW [id number] 01/06/19 10:31 MW 0412/30/18 01/06/19 12:37 12:22 10:30 Wound Center Nurse 2 #1 Left Posterior Heel -Time 12:44 12:23 10:31 -Correct Patient Yes Yes Yes -Correct Side, Site, Position Yes Yes Yes -Correct Procedure Yes Yes Yes -Procedure Performed Yes Yes Yes -Type of Procedure Debridement Debridement Debridement -Clinical Debridement Subcutaneous Subcutaneous Subcutaneous -Post Debridement Size (cm) - Length 1.9 1.5 1.4 -Post Debridement Size (cm) - Width 1.4 1.5 1.0 -Post Debridement Size (cm) - Depth 0.7 0.6 0.4 -Total Square Cm 2.66 2.25 1.40 -Wound/Ulcer Outcome Not Healed Not Healed Not Healed -Ulcer Cleansing Rinsed/ Rinsed/ Rinsed/ Irrigated with Irrigated with Irrigated with Saline Saline Saline -Foul Odor after Cleansing No No No -Bioengineered Tissue No No No -Bleeding Controlled with Pressure Pressure Pressure -Offloading No No No -Treatment Response Procedure Procedure Procedure Tolerated Well Tolerated Well Tolerated Well Pain Scale: 0-10 Numeric Is Patient Pain Free? No Yes Yes Wound debrided: Left heel Wound Grade/Stage: Stage IV Type of Debridement: Excisional debridement Anesthesia Used: 4% Lidocaine Solution Depth: Down to and including healthy tissue, in the subcutaneous layer Percentage of wound debrided: 100 Instrument Used: 3mm curette Tissue Removed: Slough and devitalized tissue Severity: Fat Layer Exposed Amount of bleeding with debridement: Mild Bleeding Controlled with: Pressure Patient tolerated procedure well Assessment/Plan Clinical Impression(s) from Imaging Studies Foot X-Ray 12/23/18 13:45 IMPRESSION: Soft tissue ulcer at the posterior aspect of the heel without radiographic manifestations of osteomyelitis. Arthrosis of the first tarsometatarsal articulation. Osteopenia. Electronically Signed: Matt Bullard MD at 13:59 EDT Tel , Service support , Ankle X-Ray 12/23/18 13:55 IMPRESSION: Soft tissue ulcer at the posterior aspect of the heel without radiographic manifestations of osteomyelitis. Osteopenia. Electronically Signed: Matt Bullard MD at 14:01 EDT Tel , Service support , Active Problems (Last Reviewed 09/08/18 @ 03:58 by Dc Reeder MD) Decubitus ulcer of left heel, stage 4 (Chronic) Assessment: Nonhealing left heel decubitus ulcer stage IV. Probes to bone. Type 2 diabetes mellitus. Peripheral vascular disease. Exposed bone with concern for osteomyelitis. Plan: Debridement done as documented above, procedure was well-tolerated. Improving. No new concerns. Continue Santyl with Adaptic over top daily. Due to chronicity of wound, with better granulation tissue and no concerns for osteomyelitis at this time, I believe she will benefit from an advanced skin substitute. Will apply. Offloading strongly recommended. Increased protein intake and optimal blood sugar control recommended. All the questions were answered and they were advised to call with any questions or concerns. Follow- up in 1 week. This note was generated with D[employer] system master dictation software. It may contain incorrect words, spelling, and punctuation that were not noted in checking the note before signing.
--- NOTE | 2019-01-07 13:11 | ART_ITS ---
Reason For Study: Non-healing wound Procedure A bilateral lower extremity continuous wave Doppler with analog waveform analysis,segmental pressures,and ankle brachial indexes without exercise. Left Segmental Pressures Left brachial= 161mmHg. Left thigh = 79mmHg. Left calf = 64mmHg. Left posterior tibial artery = 64mmHg. Left dorsalis pedis artery = 72mmHg. Left digit = 34 mmHg. The left dorsalis pedis waveforms are biphasic. The left posterior tibial artery waveforms are biphasic. Right Segmental Pressures Right brachial= 163mmHg. Right thigh = 122mmHg. Right calf = 101mmHg. Right posterior tibial artery = 81mmHg. Right dorsalis pedis artery = 85mmHg. Right digit = 62 mmHg. The right dorsalis pedis waveforms are biphasic. The right posterior tibial artery waveforms are biphasic. Indices The right ankle brachial index by the dorsalis pedis is .52. The right ankle brachial index by the posterior tibial artery is .50. The right digital-brachial index is .38. The left ankle brachial index by the dorsalis pedis is .44. The left ankle brachial index by the posterior tibial artery is .39. The left digital-brachial index is .21. Interpretation Summary Biphasic Doppler waveforms are noted at ankle level bilaterally. The resting right ankle-brachial index is moderately diminished. The resting left ankle-brachial index is severely diminished. The right digital-brachial index is moderately diminished. The left digital-brachial index is severely diminished. There is evidence of moderate arterial occlusive disease in the right lower extremity, and severe arterial occlusive disease in the left lower extremity. The arterial occlusive disease appears to involve the ilio-femoral or femoral-popliteal segments bilaterally. Ordering Physician: Nathaniel Avendaño Referring Physician: Nathaniel Avendaño Performed By: Lisa Farrell T
--- NOTE | 2019-01-07 13:16 | VDLE_ITS ---
Reason For Study: Non-healing wound RIGHT LEFT CFV is compressible, spontaneous, phasic, CFV is compressible, spontaneous, phasic, competent and demonstrates normal competent, and demonstrates normal augmentation. augmentation. FV is compressible, spontaneous, phasic, FV is compressible, spontaneous, phasic, competent and demonstrates normal competent and demonstrates normal augmentation. augmentation. POP V is compressible, spontaneous, phasic, POP V is compressible, spontaneous, phasic, competent and demonstrates normal competent and demonstrates normal augmentation. augmentation. T/P Trunk is compressible. T/P Trunk is compressible. PTV is compressible. PTV is compressible. RT PerV is compressible. LT PerV is compressible. SFJ is competent SFJ is competent GSV is competent GSV is competent SSV iscompetent. SSV is competent. Procedure Exam performed in department. A preliminary report was called and/or faxed to [facility]. Interpretation Summary Deep veins of the lower extremities are bilaterally patent and compressible segmentally. There is no evidence of deep vein thrombosis on either side. Valvular competence appears intact within the proximal deep venous systems bilaterally. The greater saphenous veins appear bilaterally patent and compressible segmentally. Sapheno-femoral junctions are bilaterally competent . Valvular competence appears to be intact segmentally within the greater saphenous veins bilaterally. Small saphenous veins are patent and competent bilaterally. Ordering Physician: Nathaniel Avendaño Referring Physician: Nathaniel Avendaño Performed By: Lisa Farrell RVT
== END 2019-01-11 23:59 ==
LOC: CVS 13:00
PROVIDERS: Family Provider Family Medicine; PCP Family Medicine; Referring Provider Internal Medicine; Visit Provider Internal Medicine
DX: E11.621 Type 2 diabetes mellitus with foot ulcer (principal); E11.51 Type 2 diabetes mellitus with diabetic peripheral angiopathy without gangrene; L89.624 Pressure ulcer of left heel, stage 4; I10 Essential (primary) hypertension; F17.210 Nicotine dependence, cigarettes, uncomplicated; R60.0 Localized edema
CPT/HCPCS: 11042; 36415; 73610; 73630; 83036; 84134; 85652; 86140; 87070; 87075; 87077; 87186; 87205; 93923; 93970; 99213; G0463

== ENCOUNTER 2019-02-10 10:15 | Outpatient (RCR) | payer MEDICARE, MEDICAID, SELFPAY ==
[2019-01-06 09:59] VITALS: BMI 28.6
[2019-01-12 01:43] VITALS: BP 143/73; PULSE 110; RESP 18; TEMP 37
[2019-01-13 12:19] VITALS: BP 124/94; PULSE 109; RESP 18; TEMP 36.4; BMI 28.6
--- NOTE | 2019-01-13 12:49 | PN.PCM_ITS ---
(1) Decubitus ulcer of left heel, stage 4 Status: Chronic Current Visit: Yes Code(s): L89.624 - Pressure ulcer of left heel, stage 4 (2) Tobacco abuse Status: Chronic Current Visit: Yes Code(s): Z72.0 - Tobacco use (3) PAD (peripheral artery disease) Status: Chronic Current Visit: Yes Code(s): I73.9 - Peripheral vascular disease, unspecified Type of Wound Chief Complaint: Nonhealing left heel ulcer. History of Wound: Ms. Mcdaniel is a 68 with past medical history of peripheral arterial disease and type 2 diabetes mellitus who presented to the wound center due to nonhealing left foot ulcer. Initially noted on 11 September, Ulcer has progressively worsened despite being managed at her nursing facility with char. Her daughter also states that she had been on antibiotics twice over the last couple of months. However, they have continued to note increased drainage and foul smell from the ulcer. She states that her blood sugars have been well controlled. She denies chills, fever or otherwise feeling unwell. Progress of Wound: Improving. No new concerns at this time. - Physical Exam Vital Signs Temp Pulse Resp BP 97.5 F L 109 H 18 124/94 H 01/13/19 12:19 01/13/19 12:19 01/13/19 12:19 01/13/19 12:19 General: Alert, Oriented x3, Cooperative, No apparent distress HEENT: Atraumatic, Normocephalic Oral: Moist Mucosa Neck: Supple Lungs: Normal air movement Abdomen: Obese Extremities: No cyanosis Skin: Ulcer/ Wound Wound Measurements and Assessment WC - Nurse 1 - General Ulcer Measurement Start: 01/13/19 12:19 Freq: Status: Active Protocol: Activity Type Activity Date Activity User E-Sign Co-Sign Detail Recorded Client Recorded Date Recorded By Document 01/13/19 12:19 DL [id number] 01/13/19 12:27 DL 01/13/19 12:19 Wound Center Nurse 1 [Ulcer Assessment] #1 Left Posterior Heel -Current Size (cm) - Length 1.4 -Current Size (cm) - Width 1 -Current Size (cm) - Depth 0.7 -Total Square Cm 1.4 -Photo Taken No -Exudate Amt Small -Exudate Type Serosanguineous -Wound Margin Distinct, Outline Attached -Granulation Amt Medium (34-66%) -Granulation Quality Red -Necrosis Amt Medium (34-66%) -Necrotic Tissue Type Adherent Slough -Structure Exposed N/A -Texture (Rachana-wound Skin Appearance) Scarring -Moisture (Rachana-wound Skin Appearance Maceration ) -Color (Rachana-wound Skin Appearance) Rubor -Temperature (Rachana-wound Skin No Abnormality Appearance) (Pt Warm) -Tenderness on Palpation (Rachana-wound No Skin Appearance) -Ulcer Cleansing Rinsed/ Irrigated with Saline -Foul Odor after Cleansing No -Anesthetic Used 4% Lidocaine Solution Musculoskeletal: No Muscle Wasting Neurological: Cranial nerves II-XII grossly intact Psych/Mental Status: Normal Affect Debridement Note Wound debrided: Left Heel Wound Grade/Stage: Stage IV Type of Debridement: Excisional debridement Anesthesia Used: 4% Lidocaine Solution Depth: Down to and including healthy tissue, in the subcutaneous layer Percentage of wound debrided: 100 Instrument Used: 7mm curette Tissue Removed: Slough and devitalized tissue Severity: Fat Layer Exposed Amount of bleeding with debridement: Mild Bleeding Controlled with: Pressure Patient tolerated procedure well Assessment/Plan Active Problems (Last Reviewed 09/08/18 @ 03:58 by Dc Reeder MD) Decubitus ulcer of left heel, stage 4 (Chronic) PAD (peripheral artery disease) (Chronic) Tobacco abuse (Chronic) Assessment: Nonhealing left heel decubitus ulcer stage IV. Probes to bone. Type 2 diabetes mellitus. Peripheral vascular disease. Exposed bone with concern for osteomyelitis. Plan: Debridement done as documented above, procedure was well-tolerated. BRIDGET done sugeestive of PAD. Left worse than right. Refer to Dr. Akshat Taylor. Switch to moistened pomogram daily with adaptic over top. I however beleive she would benefit better from an advanced wound product due to chronicity of the ulcer and PAD. Continue off loading. Increased protein intake and optimal blood sugar control recommended. Smoking cesation discussed. Pressing need to also e mphasized due to severe PAD. All their questions were answered and they were advised to call with any further questions or concerns. Follow-up in 1 week. This note was generated with [employer] software. It may contain incorrect words, spelling, and punctuation that were not noted in checking the note before signing.
[2019-01-20 11:05] VITALS: BP 136/56; PULSE 106; RESP 18; TEMP 36.6; BMI 28.6
--- NOTE | 2019-01-20 11:35 | PCM.WC.PN ---
(1) Decubitus ulcer of left heel, stage 4 Status: Chronic Current Visit: Yes Code(s): L89.624 - Pressure ulcer of left heel, stage 4 (2) Tobacco abuse Status: Chronic Current Visit: Yes Code(s): Z72.0 - Tobacco use (3) PAD (peripheral artery disease) Status: Chronic Current Visit: Yes Code(s): I73.9 - Peripheral vascular disease, unspecified Type of Wound Chief Complaint: Nonhealing left heel ulcer. History of Wound: Ms. Mcdaniel is a 68 with past medical history of peripheral arterial disease and type 2 diabetes mellitus who presented to the wound center due to nonhealing left foot ulcer. Initially noted on 11 September, Ulcer has progressively worsened despite being managed at her nursing facility with char. Her daughter also states that she had been on antibiotics twice over the last couple of months. However, they have continued to note increased drainage and foul smell from the ulcer. She states that her blood sugars have been well controlled. She denies chills, fever or otherwise feeling unwell. Progress of Wound: No new concerns at this time. Followed up with Vascular Surgery today. - Physical Exam Vital Signs Temp Pulse Resp BP 97.9 F 106 H 18 136/56 H 01/20/19 11:05 01/20/19 11:05 01/20/19 11:05 01/20/19 11:05 General: Alert, Oriented x3, Cooperative, No apparent distress HEENT: Atraumatic, Normocephalic Oral: Moist Mucosa Lungs: Normal air movement Abdomen: Non Tender, Obese Extremities: No cyanosis, Edema Skin: Ulcer/ Wound Wound Measurements and Assessment WC - Nurse 1 - General Ulcer Measurement Start: 01/13/19 12:19 Freq: Status: Active Protocol: Activity Type Activity Date Activity User E-Sign Co-Sign Detail Recorded Client Recorded Date Recorded By Document 01/20/19 11:05 DL [id number] 01/20/19 11:08 DL 01/20/19 11:05 Wound Center Nurse 1 [Ulcer Assessment] #1 Left Posterior Heel -Current Size (cm) - Length 1.5 -Current Size (cm) - Width 0.9 -Current Size (cm) - Depth 0.9 -Total Square Cm 1.35 -Photo Taken No -Exudate Amt Small -Exudate Type Serosanguineous -Wound Margin Thickened -Granulation Amt Large (67-100%) -Granulation Quality [place] Red -Necrosis Amt Small (1-33%) -Necrotic Tissue Type Adherent Slough -Structure Exposed N/A -Texture (Rachana-wound Skin Appearance) Localized Edema -Moisture (Rachana-wound Skin Appearance Maceration ) -Color (Rachana-wound Skin Appearance) Erythema Rubor -Temperature (Rachana-wound Skin No Abnormality Appearance) (Pt Warm) -Tenderness on Palpation (Rachana-wound No Skin Appearance) -Ulcer Cleansing Rinsed/ Irrigated with Saline -Foul Odor after Cleansing No -Anesthetic Used 4% Lidocaine Solution WC - Nurse 2 - General Ulcer CM Notes Start: 01/13/19 12:19 Freq: Status: Active Protocol: Activity Type Activity Date Activity User E-Sign Co-Sign Detail Recorded Client Recorded Date Recorded By Document 01/20/19 11:17 MW [id number] 01/20/19 11:22 MW 01/20/19 11:17 Wound Center Nurse 2 [Procedure/Treatment] -Time 11:17 -Correct Patient Yes -Correct Side, Site, Position Yes -Correct Procedure Yes -Procedure Performed Yes -Type of Procedure Debridement -Clinical Debridement Subcutaneous -Post Debridement Size (cm) - Length 1.4 -Post Debridement Size (cm) - Width 1.0 -Post Debridement Size (cm) - Depth 0.5 -Total Square Cm 1.40 -Wound/Ulcer Outcome Not Healed -Ulcer Cleansing Rinsed/ Irrigated with Saline -Foul Odor after Cleansing No -Bioengineered Tissue No -Bleeding Controlled with Pressure -Offloading No -Treatment Response Procedure Tolerated Well [See Physician Procedure note for Specifics] Pain Scale: 0-10 Numeric [Pain] -Is Patient Pain Free? Yes Musculoskeletal: No Muscle Wasting Neurological: Cranial nerves II-XII grossly intact Psych/Mental Status: Normal Affect Debridement Note Post-Debridement Measurements/Treatment WC - Nurse 2 - General Ulcer CM Notes Start: 01/13/19 12:19 Freq: Status: Active Protocol: Activity Type Activity Date Activity User E-Sign Co-Sign Detail Recorded Client Recorded Date Recorded By Document 01/13/19 12:36 DV [id number] 01/13/19 12:44 DV Document 01/20/19 11:17 MW [id number] 01/20/19 11:22 MW 01/13/19 01/20/19 12:36 11:17 Wound Center Nurse 2 #1 Left Posterior Heel -Time 12:39 11:17 -Correct Patient Yes Yes -Correct Side, Site, Position Yes Yes -Correct Procedure Yes Yes -Procedure Performed Yes Yes -Type of Procedure Debridement Debridement -Clinical Debridement Subcutaneous Subcutaneous -Post Debridement Size (cm) - Length 1.0 1.4 -Post Debridement Size (cm) - Width 0.8 1.0 -Post Debridement Size (cm) - Depth 0.4 0.5 -Total Square Cm 0.80 1.40 -Wound/Ulcer Outcome Not Healed Not Healed -Ulcer Cleansing Rinsed/ Rinsed/ Irrigated with Irrigated with Saline Saline -Foul Odor after Cleansing No No -Bioengineered Tissue No No -Bleeding Controlled with Pressure Pressure -Offloading Yes No -Type of Offloading Surgical Shoe -Treatment Response Procedure Procedure Tolerated Well Tolerated Well Pain Scale: 0-10 Numeric Is Patient Pain Free? Yes Yes Wound debrided: Left Heel Wound Grade/Stage: Stage IV Type of Debridement: Excisional debridement Anesthesia Used: 4% Lidocaine Solution Depth: Down to and including healthy tissue, in the subcutaneous layer Percentage of wound debrided: 100 Instrument Used: 5mm curette Tissue Removed: Slough and devitalized tissue Severity: Fat Layer Exposed Amount of bleeding with debridement: Mild Bleeding Controlled with: Pressure Patient tolerated procedure well Assessment/Plan Active Problems (Last Reviewed 01/20/19 @ 10:08 by Katie Torres) Decubitus ulcer of left heel, stage 4 (Chronic) PAD (peripheral artery disease) (Chronic) Tobacco abuse (Chronic) Assessment: Nonhealing left heel decubitus ulcer stage IV. Probes to bone. Type 2 diabetes mellitus. Peripheral vascular disease. Exposed bone with concern for osteomyelitis. Plan: Debridement done as documented above, procedure was well-tolerated. Periulcer masceration noted. Continue pomogram daily to twice daily depending on drianage. Guaze over top. I however believe she would benefit better from an advanced wound product due to chronicity of the ulcer and PAD. Did follow up with Vascular surgery and plan is for ??? CTA on 02/10. Continue off loading. Increased protein intake and optimal blood sugar control recommended. Smoking cesation discussed. Pressing need to also emphasized due to severe PAD. All their questions were answered and they were advised to call with any further questions or concerns. Follow-up in 1 week. This note was generated with [employer] software. It may contain incorrect words, spelling, and punctuation that were not noted in checking the note before signing.
--- NOTE | 2019-01-20 11:41 | PN.PCM_ITS ---
(1) Decubitus ulcer of left heel, stage 4 Status: Chronic Current Visit: Yes Code(s): L89.624 - Pressure ulcer of left heel, stage 4 (2) Tobacco abuse Status: Chronic Current Visit: Yes Code(s): Z72.0 - Tobacco use (3) PAD (peripheral artery disease) Status: Chronic Current Visit: Yes Code(s): I73.9 - Peripheral vascular disease, unspecified Type of Wound Chief Complaint: Nonhealing left heel ulcer. History of Wound: Ms. Mcdaniel is a 68 with past medical history of peripheral arterial disease and type 2 diabetes mellitus who presented to the wound center due to nonhealing left foot ulcer. Initially noted on 11 September, Ulcer has progressively worsened despite being managed at her nursing facility with char. Her daughter also states that she had been on antibiotics twice over the last couple of months. However, they have continued to note increased drainage and foul smell from the ulcer. She states that her blood sugars have been well controlled. She denies chills, fever or otherwise feeling unwell. Progress of Wound: No new concerns at this time. Followed up with Vascular Surgery today. - Physical Exam Vital Signs Temp Pulse Resp BP 97.9 F 106 H 18 136/56 H 01/20/19 11:05 01/20/19 11:05 01/20/19 11:05 01/20/19 11:05 General: Alert, Oriented x3, Cooperative, No apparent distress HEENT: Atraumatic, Normocephalic Oral: Moist Mucosa Lungs: Normal air movement Abdomen: Non Tender, Obese Extremities: No cyanosis, Edema Skin: Ulcer/ Wound Wound Measurements and Assessment WC - Nurse 1 - General Ulcer Measurement Start: 01/13/19 12:19 Freq: Status: Active Protocol: Activity Type Activity Date Activity User E-Sign Co-Sign Detail Recorded Client Recorded Date Recorded By Document 01/20/19 11:05 DL [id number] 01/20/19 11:08 DL 01/20/19 11:05 Wound Center Nurse 1 [Ulcer Assessment] #1 Left Posterior Heel -Current Size (cm) - Length 1.5 -Current Size (cm) - Width 0.9 -Current Size (cm) - Depth 0.9 -Total Square Cm 1.35 -Photo Taken No -Exudate Amt Small -Exudate Type Serosanguineous -Wound Margin Thickened -Granulation Amt Large (67-100%) -Granulation Quality [place] Red -Necrosis Amt Small (1-33%) -Necrotic Tissue Type Adherent Slough -Structure Exposed N/A -Texture (Rachana-wound Skin Appearance) Localized Edema -Moisture (Rachana-wound Skin Appearance Maceration ) -Color (Rachana-wound Skin Appearance) Erythema Rubor -Temperature (Rachana-wound Skin No Abnormality Appearance) (Pt Warm) -Tenderness on Palpation (Rachana-wound No Skin Appearance) -Ulcer Cleansing Rinsed/ Irrigated with Saline -Foul Odor after Cleansing No -Anesthetic Used 4% Lidocaine Solution WC - Nurse 2 - General Ulcer CM Notes Start: 01/13/19 12:19 Freq: Status: Active Protocol: Activity Type Activity Date Activity User E-Sign Co-Sign Detail Recorded Client Recorded Date Recorded By Document 01/20/19 11:17 MW [id number] 01/20/19 11:22 MW 01/20/19 11:17 Wound Center Nurse 2 [Procedure/Treatment] -Time 11:17 -Correct Patient Yes -Correct Side, Site, Position Yes -Correct Procedure Yes -Procedure Performed Yes -Type of Procedure Debridement -Clinical Debridement Subcutaneous -Post Debridement Size (cm) - Length 1.4 -Post Debridement Size (cm) - Width 1.0 -Post Debridement Size (cm) - Depth 0.5 -Total Square Cm 1.40 -Wound/Ulcer Outcome Not Healed -Ulcer Cleansing Rinsed/ Irrigated with Saline -Foul Odor after Cleansing No -Bioengineered Tissue No -Bleeding Controlled with Pressure -Offloading No -Treatment Response Procedure Tolerated Well [See Physician Procedure note for Specifics] Pain Scale: 0-10 Numeric [Pain] -Is Patient Pain Free? Yes Musculoskeletal: No Muscle Wasting Neurological: Cranial nerves II-XII grossly intact Psych/Mental Status: Normal Affect Debridement Note Post-Debridement Measurements/Treatment WC - Nurse 2 - General Ulcer CM Notes Start: 01/13/19 12:19 Freq: Status: Active Protocol: Activity Type Activity Date Activity User E-Sign Co-Sign Detail Recorded Client Recorded Date Recorded By Document 01/13/19 12:36 DV [id number] 01/13/19 12:44 DV Document 01/20/19 11:17 MW [id number] 01/20/19 11:22 MW 01/13/19 01/20/19 12:36 11:17 Wound Center Nurse 2 #1 Left Posterior Heel -Time 12:39 11:17 -Correct Patient Yes Yes -Correct Side, Site, Position Yes Yes -Correct Procedure Yes Yes -Procedure Performed Yes Yes -Type of Procedure Debridement Debridement -Clinical Debridement Subcutaneous Subcutaneous -Post Debridement Size (cm) - Length 1.0 1.4 -Post Debridement Size (cm) - Width 0.8 1.0 -Post Debridement Size (cm) - Depth 0.4 0.5 -Total Square Cm 0.80 1.40 -Wound/Ulcer Outcome Not Healed Not Healed -Ulcer Cleansing Rinsed/ Rinsed/ Irrigated with Irrigated with Saline Saline -Foul Odor after Cleansing No No -Bioengineered Tissue No No -Bleeding Controlled with Pressure Pressure -Offloading Yes No -Type of Offloading Surgical Shoe -Treatment Response Procedure Procedure Tolerated Well Tolerated Well Pain Scale: 0-10 Numeric Is Patient Pain Free? Yes Yes Wound debrided: Left Heel Wound Grade/Stage: Stage IV Type of Debridement: Excisional debridement Anesthesia Used: 4% Lidocaine Solution Depth: Down to and including healthy tissue, in the subcutaneous layer Percentage of wound debrided: 100 Instrument Used: 5mm curette Tissue Removed: Slough and devitalized tissue Severity: Fat Layer Exposed Amount of bleeding with debridement: Mild Bleeding Controlled with: Pressure Patient tolerated procedure well Assessment/Plan Active Problems (Last Reviewed 01/20/19 @ 10:08 by Katie Torres) Decubitus ulcer of left heel, stage 4 (Chronic) PAD (peripheral artery disease) (Chronic) Tobacco abuse (Chronic) Assessment: Nonhealing left heel decubitus ulcer stage IV. Probes to bone. Type 2 diabetes mellitus. Peripheral vascular disease. Exposed bone with concern for osteomyelitis. Plan: Debridement done as documented above, procedure was well-tolerated. Periulcer masceration noted. Continue pomogram daily to twice daily depending on drianage. Guaze over top. I however believe she would benefit better from an advanced wound product due to chronicity of the ulcer and PAD. Did follow up with Vascular surgery and plan is for ??? CTA on 02/10. Continue off loading. Increased protein intake and optimal blood sugar control recommended. Smoking cesation discussed. Pressing need to also emphasized due to severe PAD. All their questions were answered and they were advised to call with any further questions or concerns. Follow-up in 1 week. This note was generated with [employer] software. It may contain incorrect words, spelling, and punctuation that were not noted in checking the note before signing.
[2019-01-27 09:50] VITALS: BP 128/65; PULSE 95; RESP 18; TEMP 36.8; BMI 28.6
--- NOTE | 2019-01-27 11:37 | RAD_ITS ---
STUDY: X-RAY - LEFT FOOT CLINICAL: Female, 68 years old. Follow-up wound check. TECHNIQUE: 3 view(s) of the foot. COMPARISON: None. FINDINGS: There is demineralization of the rear and midfoot bones. Demineralized visualized subtalar, talonavicular, calcaneocuboid, tarsal and tarsometatarsal articulations. There is demineralization of the metatarsi. Normal metatarsophalangeal joint of the great toe. Normal tibial and fibular sesamoid bones. There is degenerative arthrosis of the interphalangeal joint of the great toe. Normal phalanges of the great toe. Normal second through fifth metatarsophalangeal joints. Normal interphalangeal joints and phalanges of the lesser toes. Soft tissue irregularity of the heel is noted with no evidence of adjacent heel erosion. RAD/Foot min 3 Views IMPRESSION: Diffuse demineralization and degenerative changes with soft tissue irregularity overlying the heel likely in the location of ulcer with no evidence of adjacent osseous erosion. Electronically Signed: Elio Hassan DO at 22:12 EDT , Service support ,
--- NOTE | 2019-01-27 11:37 | RAD_ITS ---
STUDY: X-RAY - LEFT ANKLE REASON FOR EXAM: Female, 68 years old. Follow-up wound check. TECHNIQUE: 3 view(s) of the ankle. COMPARISON: None. FINDINGS: Demineralized visualized distal tibia and fibula. Normal medial and lateral malleoli. Normal tibiotalar articulation and ankle mortise. Demineralized visualized talus and calcaneus. The visualized subtalar, talonavicular, calcaneocuboid and tarsal articulations are normal. Soft tissue irregularity overlies the heel consistent with location of ulcer with no evidence of osseous erosion. RAD/Ankle min 3 Views IMPRESSION: Degenerative change and diffuse demineralization with heel soft tissue irregularity likely in location of ulcer with no evidence of osseous erosion. Electronically Signed: Elio Hassan DO at 22:13 EDT , Service support ,
--- NOTE | 2019-01-27 13:05 | PCM.WC.PN ---
(1) Decubitus ulcer of left heel, stage 4 Status: Chronic Current Visit: Yes Code(s): L89.624 - Pressure ulcer of left heel, stage 4 (2) Tobacco abuse Status: Chronic Current Visit: Yes Code(s): Z72.0 - Tobacco use (3) PAD (peripheral artery disease) Status: Chronic Current Visit: Yes Code(s): I73.9 - Peripheral vascular disease, unspecified Type of Wound Chief Complaint: Nonhealing left heel ulcer. History of Wound: Ms. Mcdaniel is a 68 with past medical history of peripheral arterial disease and type 2 diabetes mellitus who presented to the wound center due to nonhealing left foot ulcer. Initially noted on 11 September, Ulcer has progressively worsened despite being managed at her nursing facility with char. Her daughter also states that she had been on antibiotics twice over the last couple of months. However, they have continued to note increased drainage and foul smell from the ulcer. She states that her blood sugars have been well controlled. She denies chills, fever or otherwise feeling unwell. Progress of Wound: Family is concerned that dressing changes have not been done as recommended. Ulcer appears deeper and patient reports more pain. - Physical Exam Vital Signs Temp Pulse Resp BP 98.2 F 95 18 128/65 H 01/27/19 09:50 01/27/19 09:50 01/27/19 09:50 01/27/19 09:50 General: Alert, Oriented x3, Cooperative, No apparent distress HEENT: Atraumatic, Normocephalic Oral: Moist Mucosa Neck: Supple Lungs: Normal air movement, Wheezes Cardiovascular: Regular rate, Regular Rhythm, Normal S1, Normal S2 Extremities: No cyanosis, Edema Skin: Ulcer/ Wound Wound Measurements and Assessment WC - Nurse 1 - General Ulcer Measurement Start: 01/13/19 12:19 Freq: Status: Active Protocol: Activity Type Activity Date Activity User E-Sign Co-Sign Detail Recorded Client Recorded Date Recorded By Document 01/27/19 09:50 [facility] [id number] 01/27/19 10:00 [facility] 01/27/19 09:50 Wound Center Nurse 1 [Ulcer Assessment] #1 Left Posterior Heel -Combined with other wound No -Current Size (cm) - Length 1.3 -Current Size (cm) - Width 1.6 -Current Size (cm) - Depth 1 -Total Square Cm 2.08 -Date of Last Picture (Recall this 01/27/19 field) -Photo Taken Yes -Epithelialization None Present -Tunneling No -Undermining/Tunneling No -Circular Undermining No -Exudate Amt Small -Exudate Type Serosanguineous -Wound Margin Distinct, Outline Attached -Granulation Amt Large (67-100%) -Granulation Quality Red -Slough/Fibrin Yes -Necrosis Amt Small (1-33%) -Necrotic Tissue Type Adherent Slough -Texture (Rachana-wound Skin Appearance) Assessed Callus -Moisture (Rachana-wound Skin Appearance Assessed ) Maceration -Color (Rachana-wound Skin Appearance) Assessed Erythema Palor -Temperature (Rachana-wound Skin No Abnormality Appearance) (Pt Warm) -Tenderness on Palpation (Rachana-wound Yes Skin Appearance) -Ulcer Cleansing Rinsed/ Irrigated with Saline -Foul Odor after Cleansing No -Anesthetic Used 5% Lidocaine Gel WC - Nurse 2 - General Ulcer CM Notes Start: 01/13/19 12:19 Freq: Status: Active Protocol: Activity Type Activity Date Activity User E-Sign Co-Sign Detail Recorded Client Recorded Date Recorded By Document 01/27/19 10:32 MW [id number] 01/27/19 10:42 MW 01/27/19 10:32 Wound Center Nurse 2 [Procedure/Treatment] -Time 10:32 -Correct Patient Yes -Correct Side, Site, Position Yes -Correct Procedure Yes -Procedure Performed Yes -Type of Procedure Debridement -Clinical Debridement Subcutaneous -Post Debridement Size (cm) - Length 1.3 -Post Debridement Size (cm) - Width 1.0 -Post Debridement Size (cm) - Depth 0.8 -Total Square Cm 1.30 -Wound/Ulcer Outcome Not Healed -Ulcer Cleansing Rinsed/ Irrigated with Saline -Foul Odor after Cleansing No -Bioengineered Tissue No -Bleeding Controlled with Pressure -Offloading No -Treatment Response Procedure Tolerated Well [See Physician Procedure note for Specifics] Pain Scale: 0-10 Numeric [Pain] -Is Patient Pain Free? Yes Musculoskeletal: No Muscle Wasting Neurological: Cranial nerves II-XII grossly intact Psych/Mental Status: Normal Affect Debridement Note Post-Debridement Measurements/Treatment WC - Nurse 2 - General Ulcer CM Notes Start: 01/13/19 12:19 Freq: Status: Active Protocol: Activity Type Activity Date Activity User E-Sign Co-Sign Detail Recorded Client Recorded Date Recorded By Document 01/13/19 12:36 DV [id number] 01/13/19 12:44 DV Document 01/20/19 11:17 MW [id number] 01/20/19 11:22 MW Document 01/27/19 10:32 MW [id number] 01/27/19 10:42 MW 01/13/19 01/20/19 01/27/19 12:36 11:17 10:32 Wound Center Nurse 2 #1 Left Posterior Heel -Time 12:39 11:17 10:32 -Correct Patient Yes Yes Yes -Correct Side, Site, Position Yes Yes Yes -Correct Procedure Yes Yes Yes -Procedure Performed Yes Yes Yes -Type of Procedure Debridement Debridement Debridement -Clinical Debridement Subcutaneous Subcutaneous Subcutaneous -Post Debridement Size (cm) - Length 1.0 1.4 1.3 -Post Debridement Size (cm) - Width 0.8 1.0 1.0 -Post Debridement Size (cm) - Depth 0.4 0.5 0.8 -Total Square Cm 0.80 1.40 1.30 -Wound/Ulcer Outcome Not Healed Not Healed Not Healed -Ulcer Cleansing Rinsed/ Rinsed/ Rinsed/ Irrigated with Irrigated with Irrigated with Saline Saline Saline -Foul Odor after Cleansing No No No -Bioengineered Tissue No No No -Bleeding Controlled with Pressure Pressure Pressure -Offloading Yes No No -Type of Offloading Surgical Shoe -Treatment Response Procedure Procedure Procedure Tolerated Well Tolerated Well Tolerated Well Pain Scale: 0-10 Numeric Is Patient Pain Free? Yes Yes Yes Wound debrided: Left heel Wound Grade/Stage: Stage III Type of Debridement: Excisional debridement Anesthesia Used: 4% Lidocaine Solution Depth: Down to and including healthy tissue, in the subcutaneous layer Percentage of wound debrided: 100 Instrument Used: 5mm curette Tissue Removed: Slough and devitalized tissue Severity: Fat Layer Exposed Amount of bleeding with debridement: Mild Bleeding Controlled with: Pressure Patient tolerated procedure well Assessment/Plan Active Problems (Last Reviewed 01/20/19 @ 10:08 by Katie Torres) Decubitus ulcer of left heel, stage 4 (Chronic) PAD (peripheral artery disease) (Chronic) Tobacco abuse (Chronic) Assessment: Nonhealing left heel decubitus ulcer stage IV. Probes to bone. Type 2 diabetes mellitus. Peripheral vascular disease. Exposed bone with concern for osteomyelitis. Plan: Debridement done as documented above, procedure was well-tolerated. Periulcer maceration has improved however depth has worsened. Culture taken and an x-ray ordered. Continue pomogram daily to twice daily depending on drianage. Guaze over top. Continue off loading. Increased protein intake and optimal blood sugar control recommended. Smoking cesation discussed. Pressing need to also emphasized due to severe PAD. All their questions were answered and they were advised to call with any further questions or concerns. Follow-up in 1 week. This note was generated with [employer] dictation software. It may contain incorrect words, spelling, and punctuation that were not noted in checking the note before signing.
--- NOTE | 2019-01-27 13:12 | PN.PCM_ITS ---
(1) Decubitus ulcer of left heel, stage 4 Status: Chronic Current Visit: Yes Code(s): L89.624 - Pressure ulcer of left heel, stage 4 (2) Tobacco abuse Status: Chronic Current Visit: Yes Code(s): Z72.0 - Tobacco use (3) PAD (peripheral artery disease) Status: Chronic Current Visit: Yes Code(s): I73.9 - Peripheral vascular disease, unspecified Type of Wound Chief Complaint: Nonhealing left heel ulcer. History of Wound: Ms. Mcdaniel is a 68 with past medical history of peripheral arterial disease and type 2 diabetes mellitus who presented to the wound center due to nonhealing left foot ulcer. Initially noted on 11 September, Ulcer has progressively worsened despite being managed at her nursing facility with char. Her daughter also states that she had been on antibiotics twice over the last couple of months. However, they have continued to note increased drainage and foul smell from the ulcer. She states that her blood sugars have been well controlled. She denies chills, fever or otherwise feeling unwell. Progress of Wound: Family is concerned that dressing changes have not been done as recommended. Ulcer appears deeper and patient reports more pain. - Physical Exam Vital Signs Temp Pulse Resp BP 98.2 F 95 18 128/65 H 01/27/19 09:50 01/27/19 09:50 01/27/19 09:50 01/27/19 09:50 General: Alert, Oriented x3, Cooperative, No apparent distress HEENT: Atraumatic, Normocephalic Oral: Moist Mucosa Neck: Supple Lungs: Normal air movement, Wheezes Cardiovascular: Regular rate, Regular Rhythm, Normal S1, Normal S2 Extremities: No cyanosis, Edema Skin: Ulcer/ Wound Wound Measurements and Assessment WC - Nurse 1 - General Ulcer Measurement Start: 01/13/19 12:19 Freq: Status: Active Protocol: Activity Type Activity Date Activity User E-Sign Co-Sign Detail Recorded Client Recorded Date Recorded By Document 01/27/19 09:50 [facility] [id number] 01/27/19 10:00 [facility] 01/27/19 09:50 Wound Center Nurse 1 [Ulcer Assessment] #1 Left Posterior Heel -Combined with other wound No -Current Size (cm) - Length 1.3 -Current Size (cm) - Width 1.6 -Current Size (cm) - Depth 1 -Total Square Cm 2.08 -Date of Last Picture (Recall this 01/27/19 field) -Photo Taken Yes -Epithelialization None Present -Tunneling No -Undermining/Tunneling No -Circular Undermining No -Exudate Amt Small -Exudate Type Serosanguineous -Wound Margin Distinct, Outline Attached -Granulation Amt Large (67-100%) -Granulation Quality Red -Slough/Fibrin Yes -Necrosis Amt Small (1-33%) -Necrotic Tissue Type Adherent Slough -Texture (Rachana-wound Skin Appearance) Assessed Callus -Moisture (Rachana-wound Skin Appearance Assessed ) Maceration -Color (Rachana-wound Skin Appearance) Assessed Erythema Palor -Temperature (Rachana-wound Skin No Abnormality Appearance) (Pt Warm) -Tenderness on Palpation (Rachana-wound Yes Skin Appearance) -Ulcer Cleansing Rinsed/ Irrigated with Saline -Foul Odor after Cleansing No -Anesthetic Used 5% Lidocaine Gel WC - Nurse 2 - General Ulcer CM Notes Start: 01/13/19 12:19 Freq: Status: Active Protocol: Activity Type Activity Date Activity User E-Sign Co-Sign Detail Recorded Client Recorded Date Recorded By Document 01/27/19 10:32 MW [id number] 01/27/19 10:42 MW 01/27/19 10:32 Wound Center Nurse 2 [Procedure/Treatment] -Time 10:32 -Correct Patient Yes -Correct Side, Site, Position Yes -Correct Procedure Yes -Procedure Performed Yes -Type of Procedure Debridement -Clinical Debridement Subcutaneous -Post Debridement Size (cm) - Length 1.3 -Post Debridement Size (cm) - Width 1.0 -Post Debridement Size (cm) - Depth 0.8 -Total Square Cm 1.30 -Wound/Ulcer Outcome Not Healed -Ulcer Cleansing Rinsed/ Irrigated with Saline -Foul Odor after Cleansing No -Bioengineered Tissue No -Bleeding Controlled with Pressure -Offloading No -Treatment Response Procedure Tolerated Well [See Physician Procedure note for Specifics] Pain Scale: 0-10 Numeric [Pain] -Is Patient Pain Free? Yes Musculoskeletal: No Muscle Wasting Neurological: Cranial nerves II-XII grossly intact Psych/Mental Status: Normal Affect Debridement Note Post-Debridement Measurements/Treatment WC - Nurse 2 - General Ulcer CM Notes Start: 01/13/19 12:19 Freq: Status: Active Protocol: Activity Type Activity Date Activity User E-Sign Co-Sign Detail Recorded Client Recorded Date Recorded By Document 01/13/19 12:36 DV [id number] 01/13/19 12:44 DV Document 01/20/19 11:17 MW [id number] 01/20/19 11:22 MW Document 01/27/19 10:32 MW [id number] 01/27/19 10:42 MW 01/13/19 01/20/19 01/27/19 12:36 11:17 10:32 Wound Center Nurse 2 #1 Left Posterior Heel -Time 12:39 11:17 10:32 -Correct Patient Yes Yes Yes -Correct Side, Site, Position Yes Yes Yes -Correct Procedure Yes Yes Yes -Procedure Performed Yes Yes Yes -Type of Procedure Debridement Debridement Debridement -Clinical Debridement Subcutaneous Subcutaneous Subcutaneous -Post Debridement Size (cm) - Length 1.0 1.4 1.3 -Post Debridement Size (cm) - Width 0.8 1.0 1.0 -Post Debridement Size (cm) - Depth 0.4 0.5 0.8 -Total Square Cm 0.80 1.40 1.30 -Wound/Ulcer Outcome Not Healed Not Healed Not Healed -Ulcer Cleansing Rinsed/ Rinsed/ Rinsed/ Irrigated with Irrigated with Irrigated with Saline Saline Saline -Foul Odor after Cleansing No No No -Bioengineered Tissue No No No -Bleeding Controlled with Pressure Pressure Pressure -Offloading Yes No No -Type of Offloading Surgical Shoe -Treatment Response Procedure Procedure Procedure Tolerated Well Tolerated Well Tolerated Well Pain Scale: 0-10 Numeric Is Patient Pain Free? Yes Yes Yes Wound debrided: Left heel Wound Grade/Stage: Stage III Type of Debridement: Excisional debridement Anesthesia Used: 4% Lidocaine Solution Depth: Down to and including healthy tissue, in the subcutaneous layer Percentage of wound debrided: 100 Instrument Used: 5mm curette Tissue Removed: Slough and devitalized tissue Severity: Fat Layer Exposed Amount of bleeding with debridement: Mild Bleeding Controlled with: Pressure Patient tolerated procedure well Assessment/Plan Active Problems (Last Reviewed 01/20/19 @ 10:08 by Katie Torres) Decubitus ulcer of left heel, stage 4 (Chronic) PAD (peripheral artery disease) (Chronic) Tobacco abuse (Chronic) Assessment: Nonhealing left heel decubitus ulcer stage IV. Probes to bone. Type 2 diabetes mellitus. Peripheral vascular disease. Exposed bone with concern for osteomyelitis. Plan: Debridement done as documented above, procedure was well-tolerated. Periulcer maceration has improved however depth has worsened. Culture taken and an x-ray ordered. Continue pomogram daily to twice daily depending on drianage. Guaze over top. Continue off loading. Increased protein intake and optimal blood sugar control recommended. Smoking cesation discussed. Pressing need to also emphasized due to severe PAD. All their questions were answered and they were advised to call with any further questions or concerns. Follow-up in 1 week. This note was generated with [employer] dictation software. It may contain incorrect words, spelling, and punctuation that were not noted in checking the note before signing.
[2019-02-03 11:46] VITALS: BP 129/79; PULSE 108; RESP 18; TEMP 37.2; BMI 28.6
--- NOTE | 2019-02-03 12:53 | PN.PCM_ITS ---
(1) Decubitus ulcer of left heel, stage 4 Status: Chronic Current Visit: Yes Code(s): L89.624 - Pressure ulcer of left heel, stage 4 (2) Tobacco abuse Status: Chronic Current Visit: Yes Code(s): Z72.0 - Tobacco use (3) PAD (peripheral artery disease) Status: Chronic Current Visit: Yes Code(s): I73.9 - Peripheral vascular disease, unspecified Type of Wound Chief Complaint: Nonhealing left heel ulcer. History of Wound: Ms. Mcdaniel is a 68 with past medical history of peripheral arterial disease and type 2 diabetes mellitus who presented to the wound center due to nonhealing left foot ulcer. Initially noted on 11 September, Ulcer has progressively worsened despite being managed at her nursing facility with char. Her daughter also states that she had been on antibiotics twice over the last couple of months. However, they have continued to note increased drainage and foul smell from the ulcer. She states that her blood sugars have been well controlled. She denies chills, fever or otherwise feeling unwell. Progress of Wound: No new concerns at this time. [facility]. - Physical Exam Vital Signs Temp Pulse Resp BP 99 F 108 H 18 129/79 H 02/03/19 11:46 02/03/19 11:46 02/03/19 11:46 02/03/19 11:46 General: Alert, Oriented x3, Cooperative, No apparent distress HEENT: Atraumatic, Normocephalic Oral: Moist Mucosa Neck: Supple Extremities: No cyanosis, Edema Skin: Ulcer/ Wound Wound Measurements and Assessment WC - Nurse 1 - General Ulcer Measurement Start: 01/13/19 12:19 Freq: Status: Active Protocol: Activity Type Activity Date Activity User E-Sign Co-Sign Detail Recorded Client Recorded Date Recorded By Document 02/03/19 11:46 RB [id number] 02/03/19 11:48 RB 02/03/19 11:46 Wound Center Nurse 1 [Ulcer Assessment] #1 Left Posterior Heel -Combined with other wound No -Current Size (cm) - Length 1.4 -Current Size (cm) - Width 1.4 -Current Size (cm) - Depth 1.1 -Total Square Cm 1.96 -Tunneling No -Undermining/Tunneling No -Circular Undermining No -Exudate Amt Small -Exudate Type Serosanguineous -Wound Margin Distinct, Outline Attached -Granulation Amt Medium (34-66%) -Granulation Quality Pale -Slough/Fibrin Yes -Necrosis Amt Medium (34-66%) -Necrotic Tissue Type Adherent Slough -Structure Exposed N/A -Texture (Rachana-wound Skin Appearance) Assessed -Moisture (Rachana-wound Skin Appearance Assessed ) -Color (Rachana-wound Skin Appearance) Assessed -Temperature (Rachana-wound Skin No Abnormality Appearance) (Pt Warm) -Tenderness on Palpation (Rachana-wound No Skin Appearance) -Ulcer Cleansing Wound Cleanser -Foul Odor after Cleansing No -Anesthetic Used 5% Lidocaine Gel [Edema Assessment] -Lower Limb Edema Present Yes -Left Calf (cm) 35.5 -Left Ankle (cm) 21.2 WC - Nurse 2 - General Ulcer CM Notes Start: 01/13/19 12:19 Freq: Status: Active Protocol: Activity Type Activity Date Activity User E-Sign Co-Sign Detail Recorded Client Recorded Date Recorded By Document 02/03/19 12:05 MW [id number] 02/03/19 12:16 MW 02/03/19 12:05 Wound Center Nurse 2 [Procedure/Treatment] #1 Left Posterior Heel -Time 12:05 -Correct Patient Yes -Correct Side, Site, Position Yes -Correct Procedure Yes -Procedure Performed Yes -Type of Procedure Debridement -Clinical Debridement Subcutaneous -Post Debridement Size (cm) - Length 1.1 -Post Debridement Size (cm) - Width 1.0 -Post Debridement Size (cm) - Depth 0.8 -Total Square Cm 1.10 -Wound/Ulcer Outcome Not Healed -Ulcer Cleansing Rinsed/ Irrigated with Saline -Foul Odor after Cleansing No -Bioengineered Tissue No -Bleeding Controlled with Pressure -Offloading No -Treatment Response Procedure Tolerated Well [See Physician Procedure note for Specifics] Pain Scale: 0-10 Numeric [Pain] -Is Patient Pain Free? Yes Neurological: Cranial nerves II-XII grossly intact Psych/Mental Status: Normal Affect Debridement Note Post-Debridement Measurements/Treatment WC - Nurse 2 - General Ulcer CM Notes Start: 01/13/19 12:19 Freq: Status: Active Protocol: Activity Type Activity Date Activity User E-Sign Co-Sign Detail Recorded Client Recorded Date Recorded By Document 01/13/19 12:36 DV [id number] 01/13/19 12:44 DV Document 01/20/19 11:17 MW [id number] 01/20/19 11:22 MW Document 01/27/19 10:32 MW [id number] 01/27/19 10:42 MW Document 02/03/19 12:05 MW [id number] 02/03/19 12:16 MW 01/13/19 01/20/19 01/27/19 12:36 11:17 10:32 Wound Center Nurse 2 #1 Left Posterior Heel -Time 12:39 11:17 10:32 -Correct Patient Yes Yes Yes -Correct Side, Site, Position Yes Yes Yes -Correct Procedure Yes Yes Yes -Procedure Performed Yes Yes Yes -Type of Procedure Debridement Debridement Debridement -Clinical Debridement Subcutaneous Subcutaneous Subcutaneous -Post Debridement Size (cm) - Length 1.0 1.4 1.3 -Post Debridement Size (cm) - Width 0.8 1.0 1.0 -Post Debridement Size (cm) - Depth 0.4 0.5 0.8 -Total Square Cm 0.80 1.40 1.30 -Wound/Ulcer Outcome Not Healed Not Healed Not Healed -Ulcer Cleansing Rinsed/ Rinsed/ Rinsed/ Irrigated with Irrigated with Irrigated with Saline Saline Saline -Foul Odor after Cleansing No No No -Bioengineered Tissue No No No -Bleeding Controlled with Pressure Pressure Pressure -Offloading Yes No No -Type of Offloading Surgical Shoe -Treatment Response Procedure Procedure Procedure Tolerated Well Tolerated Well Tolerated Well Pain Scale: 0-10 Numeric Is Patient Pain Free? Yes Yes Yes 02/03/19 12:05 Wound Center Nurse 2 #1 Left Posterior Heel -Time 12:05 -Correct Patient Yes -Correct Side, Site, Position Yes -Correct Procedure Yes -Procedure Performed Yes -Type of Procedure Debridement -Clinical Debridement Subcutaneous -Post Debridement Size (cm) - Length 1.1 -Post Debridement Size (cm) - Width 1.0 -Post Debridement Size (cm) - Depth 0.8 -Total Square Cm 1.10 -Wound/Ulcer Outcome Not Healed -Ulcer Cleansing Rinsed/ Irrigated with Saline -Foul Odor after Cleansing No -Bioengineered Tissue No -Bleeding Controlled with Pressure -Offloading No -Type of Offloading -Treatment Response Procedure Tolerated Well Pain Scale: 0-10 Numeric Is Patient Pain Free? Yes Wound debrided: Left foot Wound Grade/Stage: Stage III Type of Debridement: Excisional debridement Anesthesia Used: 5% Lidocaine Gel Depth: Down to and including healthy tissue, in the subcutaneous layer Percentage of wound debrided: 100 Instrument Used: 5mm curette Tissue Removed: Slough and devitalized tissue Severity: Fat Layer Exposed Amount of bleeding with debridement: Mild Bleeding Controlled with: Pressure Patient tolerated procedure well Assessment/Plan Clinical Impression(s) from Imaging Studies Ankle X-Ray 01/27/19 11:37 IMPRESSION: Degenerative change and diffuse demineralization with heel soft tissue irregularity likely in location of ulcer with no evidence of osseous erosion. Electronically Signed: Elio Hassan DO at 22:13 EDT , Service support , Foot X-Ray 01/27/19 11:37 IMPRESSION: Diffuse demineralization and degenerative changes with soft tissue irregularity overlying the heel likely in the location of ulcer with no evidence of adjacent osseous erosion. Electronically Signed: Elio Hassan DO at 22:12 EDT , Service support , Active Problems (Last Reviewed 01/20/19 @ 10:08 by Katie Torres) Decubitus ulcer of left heel, stage 4 (Chronic) PAD (peripheral artery disease) (Chronic) Tobacco abuse (Chronic) Assessment: Nonhealing left heel decubitus ulcer stage IV. Probes to bone. Type 2 diabetes mellitus. Peripheral vascular disease. Exposed bone with concern for osteomyelitis. Plan: Debridement done as documented above, procedure was well-tolerated. Repeat x-ray not suggestive of osteomyelitis. Culture with MRSA and streptococcal organisms. Started on Augmentin and doxycycline. Continue pomogram daily to twice daily depending on drianage. Guaze over top. Continue off loading. Increased protein intake and optimal blood sugar control recommende d. Smoking cesation discussed. Pressing need to also emphasized due to severe PAD. All their questions were answered and they were advised to call with any further questions or concerns. Follow-up in 1 week. This note was generated with [employer] software. It may contain incorrect words, spelling, and punctuation that were not noted in checking the note before signing.
[2019-02-10 10:30] VITALS: BP 144/86; PULSE 121; RESP 22; TEMP 36.6; O2SAT 85; BMI 28.6
--- NOTE | 2019-02-10 10:56 | WC ---
Dr. Avendaño aware of pt vital signs. SPO2 on RA was 84%, HR was 121. BP was stable. Pt has oxygen ordered at custodial but refuses to wear it.
--- NOTE | 2019-02-10 12:27 | PCM.WC.PN ---
(1) Decubitus ulcer of left heel, stage 4 Status: Chronic Current Visit: Yes Code(s): L89.624 - Pressure ulcer of left heel, stage 4 (2) Tobacco abuse Status: Chronic Current Visit: Yes Code(s): Z72.0 - Tobacco use (3) PAD (peripheral artery disease) Status: Chronic Current Visit: Yes Code(s): I73.9 - Peripheral vascular disease, unspecified Type of Wound Chief Complaint: Nonhealing left heel ulcer. History of Wound: Ms. Mcdaniel is a 68 with past medical history of peripheral arterial disease and type 2 diabetes mellitus who presented to the wound center due to nonhealing left foot ulcer. Initially noted on 11 September, Ulcer has progressively worsened despite being managed at her nursing facility with char. Her daughter also states that she had been on antibiotics twice over the last couple of months. However, they have continued to note increased drainage and foul smell from the ulcer. She states that her blood sugars have been well controlled. She denies chills, fever or otherwise feeling unwell. Progress of Wound: No new concerns. [facility]. - Physical Exam Vital Signs Temp Pulse Resp BP Pulse Ox 97.8 F 121 H 22 H 144/86 H 85 02/10/19 10:30 02/10/19 10:30 02/10/19 10:30 02/10/19 10:30 02/10/19 10:30 General: Alert, Oriented x3, Cooperative, No apparent distress HEENT: Atraumatic, Normocephalic Oral: Moist Mucosa Neck: Supple Lungs: Normal air movement Abdomen: Obese Extremities: No cyanosis Skin: Ulcer/ Wound Wound Measurements and Assessment WC - Nurse 1 - General Ulcer Measurement Start: 01/13/19 12:19 Freq: Status: Active Protocol: Activity Type Activity Date Activity User E-Sign Co-Sign Detail Recorded Client Recorded Date Recorded By Document 02/10/19 10:30 CO [id number] 02/10/19 10:45 CO 02/10/19 10:30 Wound Center Nurse 1 [Ulcer Assessment] #1 Left Posterior Heel -Current Size (cm) - Length 1.1 -Current Size (cm) - Width 1.0 -Current Size (cm) - Depth 0.5 -Total Square Cm 1.10 -Undermining/Tunneling Yes -Undermining/Tunneling Starts (O' 9 clock) -Undermining/Tunneling Ends (O'clock) 12 -Maximum Distance (cm) 0.8 -Exudate Amt Small -Exudate Type Purulent -Wound Margin Thickened & Rolled Under -Granulation Amt Small (1-33%) -Granulation Quality Pale [place] -Necrosis Amt Large (67-100%) -Necrotic Tissue Type Adherent Slough -Texture (Rachana-wound Skin Appearance) Assessed Localized Edema -Moisture (Rachana-wound Skin Appearance Assessed ) Maceration -Color (Rachana-wound Skin Appearance) Assessed Hemosiderin Staining -Temperature (Rachana-wound Skin No Abnormality Appearance) (Pt Warm) -Tenderness on Palpation (Rachana-wound No Skin Appearance) -Ulcer Cleansing Rinsed/ Irrigated with Saline -Foul Odor after Cleansing No -Anesthetic Used 5% Lidocaine Gel [Edema Assessment] -Left Calf (cm) 35 -Left Ankle (cm) 21.5 WC - Nurse 2 - General Ulcer CM Notes Start: 01/13/19 12:19 Freq: Status: Active Protocol: Activity Type Activity Date Activity User E-Sign Co-Sign Detail Recorded Client Recorded Date Recorded By Document 02/10/19 10:55 MW [id number] 02/10/19 11:00 MW 02/10/19 10:55 Wound Center Nurse 2 [Procedure/Treatment] #1 Left Posterior Heel -Time 10:56 -Correct Patient Yes -Correct Side, Site, Position Yes -Correct Procedure Yes -Procedure Performed Yes -Type of Procedure Debridement -Clinical Debridement Subcutaneous -Post Debridement Size (cm) - Length 1.1 -Post Debridement Size (cm) - Width 0.9 -Post Debridement Size (cm) - Depth 0.8 -Total Square Cm 0.99 -Wound/Ulcer Outcome Not Healed -Ulcer Cleansing Rinsed/ Irrigated with Saline -Foul Odor after Cleansing No -Bioengineered Tissue No -Bleeding Controlled with Pressure -Offloading No -Treatment Response Procedure Tolerated Well [See Physician Procedure note for Specifics] Pain Scale: 0-10 Numeric [Pain] -Is Patient Pain Free? Yes Musculoskeletal: No Muscle Wasting Neurological: Cranial nerves II-XII grossly intact Psych/Mental Status: Normal Affect Debridement Note Post-Debridement Measurements/Treatment WC - Nurse 2 - General Ulcer CM Notes Start: 01/13/19 12:19 Freq: Status: Active Protocol: Activity Type Activity Date Activity User E-Sign Co-Sign Detail Recorded Client Recorded Date Recorded By Document 01/13/19 12:36 DV [id number] 01/13/19 12:44 DV Document 01/20/19 11:17 MW [id number] 01/20/19 11:22 MW Document 01/27/19 10:32 MW [id number] 01/27/19 10:42 MW Document 02/03/19 12:05 MW [id number] 02/03/19 12:16 MW Document 02/10/19 10:55 MW [id number] 02/10/19 11:00 MW 01/13/19 01/20/19 01/27/19 12:36 11:17 10:32 Wound Center Nurse 2 #1 Left Posterior Heel -Time 12:39 11:17 10:32 -Correct Patient Yes Yes Yes -Correct Side, Site, Position Yes Yes Yes -Correct Procedure Yes Yes Yes -Procedure Performed Yes Yes Yes -Type of Procedure Debridement Debridement Debridement -Clinical Debridement Subcutaneous Subcutaneous Subcutaneous -Post Debridement Size (cm) - Length 1.0 1.4 1.3 -Post Debridement Size (cm) - Width 0.8 1.0 1.0 -Post Debridement Size (cm) - Depth 0.4 0.5 0.8 -Total Square Cm 0.80 1.40 1.30 -Wound/Ulcer Outcome Not Healed Not Healed Not Healed -Ulcer Cleansing Rinsed/ Rinsed/ Rinsed/ Irrigated with Irrigated with Irrigated with Saline Saline Saline -Foul Odor after Cleansing No No No -Bioengineered Tissue No No No -Bleeding Controlled with Pressure Pressure Pressure -Offloading Yes No No -Type of Offloading Surgical Shoe -Treatment Response Procedure Procedure Procedure Tolerated Well Tolerated Well Tolerated Well Pain Scale: 0-10 Numeric Is Patient Pain Free? Yes Yes Yes 02/03/19 02/10/19 12:05 10:55 Wound Center Nurse 2 #1 Left Posterior Heel -Time 12:05 10:56 -Correct Patient Yes Yes -Correct Side, Site, Position Yes Yes -Correct Procedure Yes Yes -Procedure Performed Yes Yes -Type of Procedure Debridement Debridement -Clinical Debridement Subcutaneous Subcutaneous -Post Debridement Size (cm) - Length 1.1 1.1 -Post Debridement Size (cm) - Width 1.0 0.9 -Post Debridement Size (cm) - Depth 0.8 0.8 -Total Square Cm 1.10 0.99 -Wound/Ulcer Outcome Not Healed Not Healed -Ulcer Cleansing Rinsed/ Rinsed/ Irrigated with Irrigated with Saline Saline -Foul Odor after Cleansing No No -Bioengineered Tissue No No -Bleeding Controlled with Pressure Pressure -Offloading No No -Type of Offloading -Treatment Response Procedure Procedure Tolerated Well Tolerated Well Pain Scale: 0-10 Numeric Is Patient Pain Free? Yes Yes Wound debrided: Left Heel. Wound Grade/Stage: Stage III Type of Debridement: Excisional debridement Anesthesia Used: 4% Lidocaine Solution Depth: Down to and including healthy tissue, in the subcutaneous layer Percentage of wound debrided: 100 Instrument Used: 3mm curette, 5mm curette Tissue Removed: Slough and devitalized tissue Severity: Fat Layer Exposed Amount of bleeding with debridement: Mild Bleeding Controlled with: Pressure Patient tolerated procedure well Assessment/Plan Clinical Impression(s) from Imaging Studies Ankle X-Ray 01/27/19 11:37 IMPRESSION: Degenerative change and diffuse demineralization with heel soft tissue irregularity likely in location of ulcer with no evidence of osseous erosion. Electronically Signed: Elio Hassan DO at 22:13 EDT , Service support , Foot X-Ray 01/27/19 11:37 IMPRESSION: Diffuse demineralization and degenerative changes with soft tissue irregularity overlying the heel likely in the location of ulcer with no evidence of adjacent osseous erosion. Electronically Signed: Elio Hassan DO at 22:12 EDT , Service support , Active Problems (Last Reviewed 01/20/19 @ 10:08 by Katie Torres) Decubitus ulcer of left heel, stage 4 (Chronic) PAD (peripheral artery disease) (Chronic) Tobacco abuse (Chronic) Assessment: Nonhealing left heel decubitus ulcer stage IV. Probes to bone. Type 2 diabetes mellitus. Peripheral vascular disease. Exposed bone with concern for osteomyelitis. Plan: Debridement done as documented above, procedure was well-tolerated. No new cocnerns at this time. Stabel Ulcer. Continue pomogram daily to twice daily depending on drianage. Guaze over top. Continue Antibiotics for 5 more days. Continue off loading. Increased protein intake and optimal blood sugar control recommended. Smoking cessation discussed. Pressing need to also emphasized due to severe PAD. All their questions were answered and they were advised to call with any further questions or concerns. Follow-up in 1 week. This note was generated with [employer] dictation software. It may contain incorrect words, spelling, and punctuation that were not noted in checking the note before signing.
--- NOTE | 2019-02-10 12:31 | PN.PCM_ITS ---
(1) Decubitus ulcer of left heel, stage 4 Status: Chronic Current Visit: Yes Code(s): L89.624 - Pressure ulcer of left heel, stage 4 (2) Tobacco abuse Status: Chronic Current Visit: Yes Code(s): Z72.0 - Tobacco use (3) PAD (peripheral artery disease) Status: Chronic Current Visit: Yes Code(s): I73.9 - Peripheral vascular disease, unspecified Type of Wound Chief Complaint: Nonhealing left heel ulcer. History of Wound: Ms. Mcdaniel is a 68 with past medical history of peripheral arterial disease and type 2 diabetes mellitus who presented to the wound center due to nonhealing left foot ulcer. Initially noted on 11 September, Ulcer has progressively worsened despite being managed at her nursing facility with char. Her daughter also states that she had been on antibiotics twice over the last couple of months. However, they have continued to note increased drainage and foul smell from the ulcer. She states that her blood sugars have been well controlled. She denies chills, fever or otherwise feeling unwell. Progress of Wound: No new concerns. [facility] Now has [facility]. - Physical Exam Vital Signs Temp Pulse Resp BP Pulse Ox 97.8 F 121 H 22 H 144/86 H 85 02/10/19 10:30 02/10/19 10:30 02/10/19 10:30 02/10/19 10:30 02/10/19 10:30 General: Alert, Oriented x3, Cooperative, No apparent distress HEENT: Atraumatic, Normocephalic Oral: Moist Mucosa Neck: Supple Lungs: Normal air movement Abdomen: Obese Extremities: No cyanosis Skin: Ulcer/ Wound Wound Measurements and Assessment WC - Nurse 1 - General Ulcer Measurement Start: 01/13/19 12:19 Freq: Status: Active Protocol: Activity Type Activity Date Activity User E-Sign Co-Sign Detail Recorded Client Recorded Date Recorded By Document 02/10/19 10:30 PA [id number] 02/10/19 10:45 PA 02/10/19 10:30 Wound Center Nurse 1 [Ulcer Assessment] #1 Left Posterior Heel -Current Size (cm) - Length 1.1 -Current Size (cm) - Width 1.0 -Current Size (cm) - Depth 0.5 -Total Square Cm 1.10 -Undermining/Tunneling Yes -Undermining/Tunneling Starts (O' 9 clock) -Undermining/Tunneling Ends (O'clock) 12 -Maximum Distance (cm) 0.8 -Exudate Amt Small -Exudate Type Purulent -Wound Margin Thickened & Rolled Under -Granulation Amt Small (1-33%) -Granulation Quality Pale [place] -Necrosis Amt Large (67-100%) -Necrotic Tissue Type Adherent Slough -Texture (Rachana-wound Skin Appearance) Assessed Localized Edema -Moisture (Rachana-wound Skin Appearance Assessed ) Maceration -Color (Rachana-wound Skin Appearance) Assessed Hemosiderin Staining -Temperature (Rachana-wound Skin No Abnormality Appearance) (Pt Warm) -Tenderness on Palpation (Rachana-wound No Skin Appearance) -Ulcer Cleansing Rinsed/ Irrigated with Saline -Foul Odor after Cleansing No -Anesthetic Used 5% Lidocaine Gel [Edema Assessment] -Left Calf (cm) 35 -Left Ankle (cm) 21.5 WC - Nurse 2 - General Ulcer CM Notes Start: 01/13/19 12:19 Freq: Status: Active Protocol: Activity Type Activity Date Activity User E-Sign Co-Sign Detail Recorded Client Recorded Date Recorded By Document 02/10/19 10:55 MW [id number] 02/10/19 11:00 MW 02/10/19 10:55 Wound Center Nurse 2 [Procedure/Treatment] #1 Left Posterior Heel -Time 10:56 -Correct Patient Yes -Correct Side, Site, Position Yes -Correct Procedure Yes -Procedure Performed Yes -Type of Procedure Debridement -Clinical Debridement Subcutaneous -Post Debridement Size (cm) - Length 1.1 -Post Debridement Size (cm) - Width 0.9 -Post Debridement Size (cm) - Depth 0.8 -Total Square Cm 0.99 -Wound/Ulcer Outcome Not Healed -Ulcer Cleansing Rinsed/ Irrigated with Saline -Foul Odor after Cleansing No -Bioengineered Tissue No -Bleeding Controlled with Pressure -Offloading No -Treatment Response Procedure Tolerated Well [See Physician Procedure note for Specifics] Pain Scale: 0-10 Numeric [Pain] -Is Patient Pain Free? Yes Musculoskeletal: No Muscle Wasting Neurological: Cranial nerves II-XII grossly intact Psych/Mental Status: Normal Affect Debridement Note Post-Debridement Measurements/Treatment WC - Nurse 2 - General Ulcer CM Notes Start: 01/13/19 12:19 Freq: Status: Active Protocol: Activity Type Activity Date Activity User E-Sign Co-Sign Detail Recorded Client Recorded Date Recorded By Document 01/13/19 12:36 DV [id number] 01/13/19 12:44 DV Document 01/20/19 11:17 MW [id number] 01/20/19 11:22 MW Document 01/27/19 10:32 MW [id number] 01/27/19 10:42 MW Document 02/03/19 12:05 MW [id number] 02/03/19 12:16 MW Document 02/10/19 10:55 MW [id number] 02/10/19 11:00 MW 01/13/19 01/20/19 01/27/19 12:36 11:17 10:32 Wound Center Nurse 2 #1 Left Posterior Heel -Time 12:39 11:17 10:32 -Correct Patient Yes Yes Yes -Correct Side, Site, Position Yes Yes Yes -Correct Procedure Yes Yes Yes -Procedure Performed Yes Yes Yes -Type of Procedure Debridement Debridement Debridement -Clinical Debridement Subcutaneous Subcutaneous Subcutaneous -Post Debridement Size (cm) - Length 1.0 1.4 1.3 -Post Debridement Size (cm) - Width 0.8 1.0 1.0 -Post Debridement Size (cm) - Depth 0.4 0.5 0.8 -Total Square Cm 0.80 1.40 1.30 -Wound/Ulcer Outcome Not Healed Not Healed Not Healed -Ulcer Cleansing Rinsed/ Rinsed/ Rinsed/ Irrigated with Irrigated with Irrigated with Saline Saline Saline -Foul Odor after Cleansing No No No -Bioengineered Tissue No No No -Bleeding Controlled with Pressure Pressure Pressure -Offloading Yes No No -Type of Offloading Surgical Shoe -Treatment Response Procedure Procedure Procedure Tolerated Well Tolerated Well Tolerated Well Pain Scale: 0-10 Numeric Is Patient Pain Free? Yes Yes Yes 02/03/19 02/10/19 12:05 10:55 Wound Center Nurse 2 #1 Left Posterior Heel -Time 12:05 10:56 -Correct Patient Yes Yes -Correct Side, Site, Position Yes Yes -Correct Procedure Yes Yes -Procedure Performed Yes Yes -Type of Procedure Debridement Debridement -Clinical Debridement Subcutaneous Subcutaneous -Post Debridement Size (cm) - Length 1.1 1.1 -Post Debridement Size (cm) - Width 1.0 0.9 -Post Debridement Size (cm) - Depth 0.8 0.8 -Total Square Cm 1.10 0.99 -Wound/Ulcer Outcome Not Healed Not Healed -Ulcer Cleansing Rinsed/ Rinsed/ Irrigated with Irrigated with Saline Saline -Foul Odor after Cleansing No No -Bioengineered Tissue No No -Bleeding Controlled with Pressure Pressure -Offloading No No -Type of Offloading -Treatment Response Procedure Procedure Tolerated Well Tolerated Well Pain Scale: 0-10 Numeric Is Patient Pain Free? Yes Yes Wound debrided: Left Heel. Wound Grade/Stage: Stage III Type of Debridement: Excisional debridement Anesthesia Used: 4% Lidocaine Solution Depth: Down to and including healthy tissue, in the subcutaneous layer Percentage of wound debrided: 100 Instrument Used: 3mm curette, 5mm curette Tissue Removed: Slough and devitalized tissue Severity: Fat Layer Exposed Amount of bleeding with debridement: Mild Bleeding Controlled with: Pressure Patient tolerated procedure well Assessment/Plan Clinical Impression(s) from Imaging Studies Ankle X-Ray 01/27/19 11:37 IMPRESSION: Degenerative change and diffuse demineralization with heel soft tissue irregularity likely in location of ulcer with no evidence of osseous erosion. Electronically Signed: Elio Hsasan DO at 22:13 EDT , Service support , Foot X-Ray 01/27/19 11:37 IMPRESSION: Diffuse demineralization and degenerative changes with soft tissue irregularity overlying the heel likely in the location of ulcer with no evidence of adjacent osseous erosion. Electronically Signed: Elio Hassan DO at 22:12 EDT , Service support , Active Problems (Last Reviewed 01/20/19 @ 10:08 by Katie Torres) Decubitus ulcer of left heel, stage 4 (Chronic) PAD (peripheral artery disease) (Chronic) Tobacco abuse (Chronic) Assessment: Nonhealing left heel decubitus ulcer stage IV. Probes to bone. Type 2 diabetes mellitus. Peripheral vascular disease. Exposed bone with concern for osteomyelitis. Plan: Debridement done as documented above, procedure was well-tolerated. No new cocnerns at this time. Stabel Ulcer. Continue pomogram daily to twice daily depending on drianage. Guaze over top. Continue Antibiotics for 5 more days. Continue off loading. Increased protein intake and optimal blood sugar control recommended. Smoking cessation discussed. Pressing need to also emphasized due to severe PAD. All their questions were answered and they were advised to call with any further questions or concerns. Follow-up in 1 week. This note was generated with [employer] dictation software. It may contain incorrect words, spelling, and punctuation that were not noted in checking the note before signing.
== END 2019-02-11 23:59 ==
LOC: WC 10:15
PROVIDERS: Family Provider Family Medicine; PCP Family Medicine; Referring Provider Internal Medicine; Visit Provider Internal Medicine
DX: E11.621 Type 2 diabetes mellitus with foot ulcer (principal); E11.51 Type 2 diabetes mellitus with diabetic peripheral angiopathy without gangrene; L89.624 Pressure ulcer of left heel, stage 4; Z72.0 Tobacco use
CPT/HCPCS: 11042; 73610; 73630; 87070; 87075; 87077; 87186; 87205

== ENCOUNTER 2019-02-10 15:46 | Observation (INO) | payer MEDICARE, MEDICAID, SELFPAY ==
[2019-01-20 10:26] VITALS: BMI 28.6
--- NOTE | 2019-01-20 17:24 | HP_ITS ---
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 Required: No Is patient in pain?: No Allergies quinapril [From Accupril] Allergy (Verified 01/20/19 10:00) Rash Medications Metformin HCl [Glucophage] 1 tab PO BID 09/26/17 [History Confirmed 01/20/19] Amlodipine Besylate [Norvasc] 10 mg PO DAILY 06/16/18 [History Confirmed 01/20/19] Cholecalciferol (Vitamin D3) [Vitamin D3] 2,000 unit PO DAILY 06/16/18 [History Confirmed 01/20/19] Hydrochlorothiazide [Hctz] 12.5 mg PO DAILY 06/16/18 [History Confirmed 01/20/19] Losartan Potassium [Cozaar] 100 mg PO DAILY 06/16/18 [History Confirmed 01/20/19] Naproxen 500 mg PO QHS 09/08/18 [History Confirmed 01/20/19] Rosuvastatin Calcium 5 mg PO QHS 09/08/18 [History Confirmed 01/20/19] Collagenase [Santyl] 1 applic TOPICAL DAILY 12/23/18 [History Confirmed 01/20/19] acetaminophen 500 mg tablet 500 mg PO Q6H PRN 01/20/19 [History Confirmed 01/20/19] docusate sodium 100 mg capsule 100 mg PO DAILY 01/20/19 [History Confirmed 01/20/19] glucagon (human recombinant) 1 mg solution for injection 1 mg IM ONCE 01/20/19 [History Confirmed 01/20/19] magnesium hydroxide 400 mg/5 mL oral suspension 30 ml PO QHS PRN ml 01/20/19 [History Confirmed 01/20/19] multivitamin,tx-minerals tablet 1 tab PO DAILY 01/20/19 [History Confirmed 01/20/19] oxycodone 5 mg tablet 5 mg PO Q4H PRN tab 01/20/19 [History Confirmed 01/20/19] polyethylene glycol 3350 17 gram oral powder packet 17 g PO DAILY 01/20/19 [History Confirmed 01/20/19] PFS Medical History Hx TIA/stroke w/o resid (Acute) Diabetes (Acute) Neurogenic bladder (Acute) Urinary retention (Acute) Neurogenic bladder (Acute) Urge incontinence (Acute) Nocturia (Acute) Intertrochanteric fracture of left hip (Acute) Left humeral fracture (Suspected) HTN (hypertension) (Chronic) Chronic ulcer of left heel with fat layer exposed (Chronic) Decubitus ulcer of left heel, stage 4 (Chronic) PAD (peripheral artery disease) (Chronic) Tobacco abuse (Chronic) Surgical History Hx of tonsillectomy (Acute) Hx of bladder repair surgery (Acute) History of partial hysterectomy (Acute) History of lumpectomy of right breast (Acute) History of right-sided carotid endarterectomy (Acute) Family History Mother Tuberculosis Social History Smoking Status: Current every day smoker second hand exposure: Yes alcohol intake: never substance use type: does not use caffeine: Yes what type of physical activity do you participate in: none frequency: does not exercise HPI HPI HPI: TATIANA DICKEY, is a 68 F who presents to the office today for HPI HPI Surgical H&P: Yes HPI: TATIANA DICKEY, is a 68 F who presents to the office today for surgical consultation regarding peripheral vascular occlusive disease and a non-healing slowly healing left calcaneal ulcer. The patient is referred from the wound care center Dr Avendaño and a written compromise surgical consult recommendations will be returned to the. 68-year-old female. She does look significantly older than stated age. She presents with her daughter. The patient is in a wheelchair. She states that September 07, 2018 she fell causing fractures to her shoulder and her hip. She apparently since that time has been at [facility]. She claims that while in the prison she was placed to bed rest for multiple weeks and developed a left calcaneal ulcer. She has recently been going to the wound care center for aggressive debridement. As of September 11, 2018 her BUN was 7 and creatinine 0.38. As of January 07, [address] [facility] she had PVRs obtained. The right DP and PT BRIDGET of 0.52 and 0.5 with a digital index of 0.38. The left DP and PT indices are 0.44 and 0.39 with a digital index of only 0.21. Doppler waveforms involving both the right and left lower extremity are biphasic. There is felt to be moderate occlusive disease in the right lower extremity and severe occlusive disease of the left lower extremity. Findings suggest iliofemoral or femoral-popliteal disease bilaterally. On January 07, 2019 the patient had bilateral extremity venous interpretation. No DVT is identified. Veins appear to be patent compressible and valves appear to be competent. Patient's history is notable for being diabetic. She has been a lifelong cigarette smoker and she states that she truly has no interest in stopping. I have previously had the opportunity to assist with her care. I initially saw her in approximately 2010 with occlusion of her left internal carotid high-grade stenosis of her right internal carotid. At that point she was felt to be at very high risk and so she was referred to Dr. Jesús Blair at [facility] and performed a right carotid enterectomy with patch angioplasty. As of July 08 2000 17 patient had a widely patent right carotid surgical site and a chronically occluded left internal carotid. It is documented that the [facility] was outside of her insurance profile at that time To make matters more complex however she states that January 2018 she had a CVA she does not describe any focal symptoms but global weakness. ROS General General: No weight change, appetite, fatigue, colon cancer, breast cancer or weakness HEENT HEENT: No difficulty swallowing, eye injury, eye surgery, swollen glands or hoarseness Endo Endocrine: Yes diabetes mellitus; no thyroid disease, thyroid cancer, Hair loss, heat intolerance or cold intolerance Skin Skin: No rash or changing moles Musc Musculoskeletal: Yes gout; no back problems, arthritis, rheumatoid arthritis or joint pain Cardio Cardiovascular: Yes high blood pressure; no murmur, pacemaker, heart disease, atrial fibrillation, heart attack, heart stent, palpitations, shortness of breat with exertion or chest pain Psych Psychiatric: No depression, anxiety or hearing voices Resp Respiratory: No shortness of breath, No sleep apnea, No cough, No COPD, No asthma, No emphysema, No wheezing Gastro Gastrointestinal: No abdominal pain, No nausea or vomiting, No diarrhea, No constipation, No blood in stool, No acid reflux, No hemorrhoids, No ulcers, No gallbladder problem, No black,tarry stools Dale Hematologic: Yes blood thinners, No blood disorders, No bleeding, No anemia, No blood clots Neuro Neurologic: No system reviewed and no additional complaints, except as docu, No as per HPI, No abnormal walking, No abnormal hearing, No abnormal movements, No abnormal speech, No behavioral changes, No burning sensations, No confusion, No seizure-like activity, No unsteadiness, No dizziness, No localized weakness, No frequent falls, No headache(s), No lack of coordination, No loss of vision, No memory loss, No numbness, No other visual disturbances, No radiating pain, No restless legs, No sensory deficit, No fainting, No tingling, No tremor(s), No weakness, Yes other (hx of stroke in 2018) Exam Const General: no acute distress Nutritional Appearance: overweight Orientation: alert, awake, oriented x3 HENMT Head: normal to inspection Eyes General: appearance normal, both eyes and all related structures Neck Neck: other (Well-healed right neck surgical incision) Chest Other: Markedly increased anterior posterior diameter of the chest Resp Other: Poor respiratory excursion with deep breath. Scattered wheezes noted Cardio Rate: regular rate Rhythm: regular rhythm Heart Sounds: no murmurs Other: Bilateral carotids 2+. Bilateral brachials 2+. Bilateral radials 1+. Bilateral femorals 1-2+. Bilateral popliteal DP and PT absent GI Palpation: soft, no hepatosplenomegaly Auscultation: normal bowel sounds Skin Other: Bilateral lower extremity ecchymosis edema Neuro Cognition: normal cognition Extrem Other: Left calcaneal ulcer, thickened nails, hair loss, nonpitting indurated edema bilateral lower extremities malleolar level Psych Affect: normal affect Assessment & Plan Problems 1. PAD (peripheral artery disease) I73.9 Plan 68-year-old female with chronic long-term multi segmental bilateral lower extremity peripheral arterial occlusive disease left lower extremity worse than the right. She has a pressures more of the left calcaneus slow to heal. She has ongoing tobacco abuse and this unfortunately will not be remedied. She states she had a CVA January 2018. She has had a previous right carotid endarterectomy with patch angioplasty because of a high-grade critical stenosis and she carries a history of an occluded left internal carotid. She has significant pulmonary findings very much consistent with COPD. She presented to the office not currently on oxygen. She is overweight and deconditioned presenting in a wheelchair. With her daughter present I discussed with her treatment options. I have offered an attempt at a left lower extremity arteriogram with possible endovascular intervention. Unfortunately I am suspecting bilateral iliofemoral disease and likely multi segmental occlusive disease involving the left lower extremity. In detail I discussed the technique, benefit, risks, alternatives. No guarantees have been offered. I strongly encouraged the patient that she cease her tobacco use but she is not demonstrating an interest in this. She has had an opportunity to ask and have questions answered. We will schedule and proceed at her discretion. I appreciate the ongoing opportunity of assisting with her surgical care CC: Dr.Oleghe Akshat Taylor M.D., F.A.C.S. Coding Level of Care Code Comprehensive,moderate Diagnoses PAD (peripheral artery disease) I73.9 01/20/19 1724 <Electronically signed by Akshat Taylor MD> Date Akshat Taylor MD I have re-examined the patient. There are no clinical changes since date of exam.
--- NOTE | 2019-02-03 13:29 | EKG12_ITS ---
Test Reason : PREOP Blood Pressure : / mmHG Vent. Rate : 106 BPM Atrial Rate : 106 BPM P-R Int : 144 ms QRS Dur : 084 ms QT Int : 350 ms P-R-T Axes : 008 056 066 degrees QTc Int : 464 ms Sinus tachycardia with Premature atrial complexes Otherwise normal ECG Confirmed by CARRIE MCCONNELL ([id number]), metropolitan editor MARISSA CHUNG ([id number] on 02/09/2019 11:40:40 AM Referred By: Akshat Taylor Confirmed By:GAIL MCCONNELL
[2019-02-03 13:38] LABS: Anion Gap 7 (5-15); BUN 22 mg/dL (7-18); BUN/Creat Ratio 39.1 RATIO (10-20); Calcium,Total 9.6 mg/dL (8.5-10.1); Chloride 97 mmol/L (98-107); Creatinine, Serum 0.56 mg/dL (0.55-1.02); EST Glomerular Filtration Rate 113 mL/min (>60); Est Glom Filt Rate - Afr Amer 137 mL/min (>60); Glucose 91 mg/dL (74-106); Sodium Level 134 mmol/L (136-145)
[2019-02-03 13:47] LABS: Hematocrit 45.1 % (37-47); Hemoglobin 15.7 g/dl (12.0-15.0); Mean Corp Hgb Conc 34.8 g/gl (32-36); Mean Corpuscular Hgb 31.7 pg (27.0-32.0); Mean Corpuscular Volume 90.9 fL (81-99); Platelet Count 312 K/mm3 (150-450); RBC Distribution Width CV 13.4 % (11.6-14.6); RBC Distribution Width SD 43.9 fl (35.1-43.9); Red Blood Count 4.96 M/mm3 (4.2-5.4); White Blood Count 10.9 K/mm3 (4.4-11.0)
[2019-02-03 13:49] LABS: Scan Indicated on CBC? Y/N NO
[2019-02-09 08:17] VITALS: BMI 31.1
[2019-02-10] VITALS (16 sets, daily range): BP systolic 105–158; BP diastolic 43–86; PULSE 67–109; RESP 16–20; TEMP 36.4–37.3; O2SAT 92–98; BMI 28.6
--- NOTE | 2019-02-10 16:08 | OP.PCM_ITS ---
Problem List (1) PAD (peripheral artery disease) Status: Chronic Report of Operation Date of Procedure: 02/10/19 Pre-Operative Diagnosis: Multi segmental lower extremity vascular occlusive disease with nonhealing left calcaneal ulcer Post-Operative Diagnosis: Same Surgery/Procedure Performed:: Abdominal pelvic left lower extremity arteriogram. Left superficial femoral 4 x 200 mm angioplasty. Focal left mid superficial femoral artery 6 x 80 mm prot?g? stenting. Left proximal common iliac angioplasty and 7 x 39 mm Rosina stenting Description of Surgical Findings:: Timeout and informed consent was obtained. The patient was taken to special procedures lab placed throughout the supine on the table. Medications that were given throughout the procedure in aliquots included 150 mcg of fentanyl. 4 mg of Versed as intravenous sedation. At the initiation of once larger sheath placement was made she received in aliquots a total of 10,500 units of heparin. And at the completion of the procedure she received 20 mg of protamine IV. Under ultrasound guidance after bilateral groins were sterilely prepped draped I identified the bifurcation of the right superficial femoral and profundofemoral arteries and the anterior wall of the right common femoral artery. 2% lidocaine was instilled as a local anesthetic throughout the procedure total of 10 cc was used. Under ultrasound guidance micropuncture needle inserted into the anterior wall micropuncture wire inserted micropuncture sheath inserted 035 J-wire was inserted a 5 [place] short sheath dilator was inserted. Using a thriving Glidewire 5 [place] universal flush catheter was placed in the abdominal aorta. Using Visipaque contrast the rate of 15 cc a second for 15 cc a AP aortogram was obtained. This demonstrated 80% stenosis of the proximal left common iliac. There was 30% stenosis of the right proximal external iliac right at the bifurcation of the hypogastric. I was able to get a Glidewire and the flush catheter through the stenosis of the left common iliac was able to advance the Glidewire down to the left groin then I switched out for 035 quick cross catheter. Was able to place that into the left common femoral artery got static views of the left thigh. I was then able to selectively cannulate the left superficial femoral artery and get selective views of the left lower extremity. This demonstrated occlusion of the left mid superficial femoral artery with areas of diffuse high-grade stenosis throughout the majority of the superficial femoral artery. The popliteal was patent and there was three-vessel runoff to the ankle. I placed a 035 Magic wire through the quick cross catheter I was then able to exchange out the 5 [place] sheath for a 7 [place] destination sheath. This is when the patient received 9000 units of heparin IV and then ACT measurements were used to administer the additional aliquots. I replaced the 035 quick cross catheter I used an 035 angled Glidewire was able to get through the area of complete occlusion of the left superficial femoral artery was able to get true access to the left popliteal. I then performed a 4 x 200 mm balloon angioplasty of the majority length of the left superficial femoral artery. These positionings were held for 3 minutes. 4 different insufflations were performed. At the completion the majority of the artery appeared improved however in the mid left superficial femoral artery there appeared to be an irregular area of dissection which was potentially flow- limiting. So then in this area I placed a 6 x 80 mm prot?g? stent. I seated that in place with a 4 x 40 mm Powerflex balloon. I then withdrew the sheath and performed a 7 x 40 mm Powerflex angioplasty of the proximal left common iliac. From the right I was able to place a 7 x 30 mm Rosina stent and performed stenting of the very proximal left common iliac right at the orifice with good positioning of that stent. This appeared to resolve that area of inflow stenosis of the left iliac. I reinspected the right proximal external iliac demonstrating 30% stenosis I did not feel that that warranted treatment. At the completion then I attempted to place a Perclose device. 2 Perclose devices did not fire appropriately. I then attempted to use a minx device. Due to the patient's body habitus there had been some tortuosity and some angulation likely causing increased opening of the anterior wall. The minx device also did not lead to success. So this is when the patient received 20 mg of protamine and aliquots and direct pressure was held upon the right groin. A small creatinine hematoma was gradually massaged free. Hemostasis was achieved. Direct pressure was held for over an hour during this procedure. The patient appeared to be warm comfortable viable at the completion there was no evidence of ongoing bleeding at the end of pressure held holding. Sterile dressings applied the patient will have a sandbag applied the patient will be taken to the progressive care unit for ongoing vascular observation. Images demonstrate that the bilateral renal arteries are patent the abdominal aorta is patent though irregular there is an 80% stenosis of the proximal left common iliac 30% stenosis of the very proximal right external iliac at the bifurcation of the internal and external iliac. There is severe stenosis involving the majority of left superficial femoral artery with mid segment that was completely occluded with evidence of collaterals. The left popliteal and trifurcation vessels are patent down to the ankle. Subsequent to the angioplasty and stenting of the left superficial femoral artery now has patent in-line flow. The area of dissection in the mid vessel is nicely treated with a stent. There are 2 areas of lesser degree of dissection in the proximal left superficial femoral artery which do not appear to be flow- limiting. The left common iliac artery subsequent to angioplasty and stenting appears to be widely patent. Impression successfully treated multisegmental peripheral vascular occlusive disease left lower extremity with resolved left proximal common iliac stenosis and resolved mid left superficial femoral artery occlusion. Specimens none. Drains none. Blood loss felt to be likely 200 cc. Akshat Taylor M.D., F.A.C.S. Type of Anesthesia:: IV Sedation, Local
[2019-02-10 16:25] LABS: ACT Activated Clotting Time 219 sec (74-137)
[2019-02-10 16:25] LABS: ACT Activated Clotting Time 136 sec (74-137)
[2019-02-10 16:25] LABS: ACT Activated Clotting Time 213 sec (74-137)
[2019-02-10 16:25] LABS: ACT Activated Clotting Time 268 sec (74-137)
[2019-02-10] MEDS: Lactated Ringers 1,000 ML 70 ML IV (17:13)
[2019-02-10 18:14] LABS: Absolute Lymphocyte Count 0.84 X10^3/ul (0.83-4.51); Absolute Neutrophil Count 11.8 X10^3/uL (2.0-7.7); Basophil# 0.04 X10^3/uL; Basophil% 0.3 % (0-1); Eosinophil# 0.15 X10^3/uL; Eosinophils% 1.1 % (0-5); Hematocrit 42.7 % (37-47); Hemoglobin 14.5 g/dl (12.0-15.0); Lymphocyte # 0.84 X10^3/ul (4.0); Mean Corpuscular Hgb 31.1 pg (27.0-32.0); Mean Corpuscular Volume 91.6 fL (81-99); Monocyte# 1.02 X10^3/uL; Monocyte% 7.3 % (0-10); Neutrophil # 11.83 X10^3/uL (2.7-7.7); Neutrophil % 85.1 % (47-70); Platelet Count 279 K/mm3 (150-450); RBC Distribution Width CV 13.3 % (11.6-14.6); Red Blood Count 4.66 M/mm3 (4.2-5.4); White Blood Count 13.9 K/mm3 (4.4-11.0)
[2019-02-10 18:16] LABS: POSITIVE COUNT NO; POSITIVE DIFFERENTIAL NO; POSITIVE MORPHOLOGY NO
--- NOTE | 2019-02-10 18:34 | NURSING ---
0- pt adament about eating and getting angry with rn saying that i dont care that im bleeding! i havent ate all day so im going to eat checking with primary rn and charge but informed pt that with circumstances could not raise up bed d/t numerous post cath hematomas. pt also wanting oxygen off but desats to 87% on ra.
--- NOTE | 2019-02-10 18:45 | NURSING ---
pt in bed and o2 on despite pt not wanting. denies any pain. feet cold b/l with chronic neuropathy noted. unable to get pedal pulses via doppler x2 rn's. toes pink but delayed cap refill noted and unchanged since this rn assessed pt at 1830.
--- NOTE | 2019-02-10 19:04 | NURSING ---
1905 pt sat up to 30degrees and will monitor. site with bruising but soft and no drng obs. pt's daughter in at bedside. lt foot cool and rt foot cold. denies any pain. sand bag continues. sip of water given.
[2019-02-10 19:05] LABS: Anion Gap 6 (5-15); BUN 14 mg/dL (7-18); BUN/Creat Ratio 23.9 RATIO (10-20); Calcium,Total 8.5 mg/dL (8.5-10.1); Chloride 103 mmol/L (98-107); Creatinine, Serum 0.58 mg/dL (0.55-1.02); EST Glomerular Filtration Rate 108 mL/min (>60); Est Glom Filt Rate - Afr Amer 131 mL/min (>60); Estimated Creatinine Clearance 45.85 ml/min; Glucose 145 mg/dL (74-106); Potassium 3.9 mmol/L (3.5-5.1); Sodium Level 139 mmol/L (136-145)
--- NOTE | 2019-02-10 19:15 | NURSING ---
dr jimenez in at bedside and weak doppler to lt medial area and marked. drsg change done per daughter as was at home. ok to eat and sit up. sand bag dc'd per verbal order. report passed to peggy bowman.
[2019-02-10] MEDS: Rosuvastatin Calcium 5 MG Tablet PO (21:25)
[2019-02-10] MEDS: Naproxen 500 MG Tablet PO (21:25)
[2019-02-10] MEDS: Aspirin 325 MG Tablet PO (21:25)
[2019-02-10] MEDS: Acetaminophen 500 MG Tablet PO (21:36)
[2019-02-10 23:00] LABS: Bedside Glucose 172 mg/dL (70-110)
[2019-02-11] MEDS: oxyCODONE 5 MG Tablet PO ×2 (00:06→05:44)
[2019-02-11 02:00] VITALS: BP 140/78; PULSE 94; RESP 20; RESP 22; TEMP 36.8; O2SAT 96
[2019-02-11 03:01] VITALS: PULSE 92
[2019-02-11] MEDS: Acetaminophen 500 MG Tablet PO (03:42)
[2019-02-11 05:30] VITALS: BP 150/71; PULSE 90; RESP 20; TEMP 37.1; O2SAT 92
--- NOTE | 2019-02-11 05:32 | PCM.PN.SRG ---
Subjective: Pt c/o bilateral foot pain - Physical Exam Extremities: - - right groin supple, left fem 2+, left popliteal triphasic doppler, left leg warm Vital Signs Temp Pulse Resp BP Pulse Ox 98.7 F 90 20 H 150/71 H 92 02/11/19 05:30 02/11/19 05:30 02/11/19 05:30 02/11/19 05:30 02/11/19 05:30 Oxygen Flow Rate (L/min) 1 Oxygen Delivery Method Nasal Cannula Weight: 184 lb Body Mass Index (BMI) 28.6 Finger Stick Blood Glucose 156 Intake and Output for Last 24 Hours 02/09/19 02/10/19 02/11/19 23:59 23:59 23:59 Intake Total 70 / 70 975 / 975 Output Total 350 / 350 1000 / 1000 Balance -280 / -280 -25 / -25 Laboratory Tests Past 24 Hrs 02/10/19 02/10/19 02/10/19 13:12 13:41 14:19 WBC RBC Hgb Hct MCV MCH MCHC RDW RDW Differential Plt Count MPV Immature Gran % (Auto) Neut % (Auto) Lymph % (Auto) Gilchrist % (Auto) Eos % (Auto) Baso % (Auto) Absolute Neuts (auto) Absolute Lymphs (auto) Total Counted Activated Clotting Time 136 268 H 219 H Sodium Potassium Chloride Carbon Dioxide Anion Gap BUN Creatinine Estim Creat Clear Calc Est GFR (MDRD) Af Amer Est GFR (MDRD) Non-Af BUN/Creatinine Ratio Glucose Calcium Blood Type Antibody Screen 02/10/19 02/10/19 02/10/19 14:54 17:55 17:55 WBC 13.9 H RBC 4.66 Hgb 14.5 Hct 42.7 MCV 91.6 MCH 31.1 MCHC 34.0 RDW 13.3 RDW Differential 44.0 H Plt Count 279 MPV 10.0 Immature Gran % (Auto) 0.200 Neut % (Auto) 85.1 H Lymph % (Auto) 6.0 L Gilchrist % (Auto) 7.3 Eos % (Auto) 1.1 Baso % (Auto) 0.3 Absolute Neuts (auto) 11.8 H Absolute Lymphs (auto) 0.84 Total Counted Not Reportable Activated Clotting Time 213 H Sodium 139 Potassium 3.9 Chloride 103 Carbon Dioxide 30.0 Anion Gap 6 BUN 14 Creatinine 0.58 Estim Creat Clear Calc 45.85 Est GFR (MDRD) Af Amer 131 Est GFR (MDRD) Non-Af 108 BUN/Creatinine Ratio 23.9 H Glucose 145 H Calcium 8.5 Blood Type Antibody Screen 02/10/19 17:55 WBC RBC Hgb Hct MCV MCH MCHC RDW RDW Differential Plt Count MPV Immature Gran % (Auto) Neut % (Auto) Lymph % (Auto) Gilchrist % (Auto) Eos % (Auto) Baso % (Auto) Absolute Neuts (auto) Absolute Lymphs (auto) Total Counted Activated Clotting Time Sodium Potassium Chloride Carbon Dioxide Anion Gap BUN Creatinine Estim Creat Clear Calc Est GFR (MDRD) Af Amer Est GFR (MDRD) Non-Af BUN/Creatinine Ratio Glucose Calcium Blood Type A NEGATIVE Antibody Screen NEGATIVE POC Glucose 02/10/19 22:55 POC Glucose 172 H Medical Necessity - Tobacco Use Smoking Status: Current every day smoker Assessment/Plan All Active Problems (Last Reviewed 01/20/19 @ 10:08 by Katie Torres) Hx of tonsillectomy (Acute) Hx of bladder repair surgery (Acute) History of partial hysterectomy (Acute) History of lumpectomy of right breast (Acute) History of right-sided carotid endarterectomy (Acute) Hx TIA/stroke w/o resid (Acute) Diabetes (Acute) Neurogenic bladder (Acute) Urinary retention (Acute) Neurogenic bladder (Acute) Urge incontinence (Acute) Nocturia (Acute) Intertrochanteric fracture of left hip (Acute) Pt is at higher risk. Stent in left common iliac and left SFA Will use ASA 325mg as anticoagulant rather than plavix at this time COPD and ongoing tobacco use affecting O2 Sats Mobilize pt, Remove batista. Plan discharge today
--- NOTE | 2019-02-11 05:51 | DCINST_ITS ---
Discharge Diet: 1600 Calorie Control Diet Discharge Activity: May Not Drive Additional Instructions: Hold metformin for 48 hours please Allergies/Adverse Reactions: Allergies atorvastatin [From Lipitor] Allergy (Verified 02/10/19 20:48) Other quinapril [From Accupril] Allergy (Verified 01/20/19 10:00) Rash Medications to take at Discharge metFORMIN HCl [Glucophage] 1 tab PO BID 09/26/17 Amlodipine Besylate [Norvasc] 10 mg PO DAILY 06/16/18 Cholecalciferol (Vitamin D3) [Vitamin D3] 2,000 unit PO DAILY 06/16/18 Hydrochlorothiazide [Hctz] 12.5 mg PO DAILY 06/16/18 Losartan Potassium [Cozaar] 100 mg PO DAILY 06/16/18 Naproxen 500 mg PO QHS 09/08/18 Rosuvastatin Calcium 5 mg PO QHS 09/08/18 Collagenase [Santyl] 1 applic TOPICAL DAILY 12/23/18 acetaminophen 500 mg tablet 500 mg PO Q6H PRN 01/20/19 docusate sodium 100 mg capsule 100 mg PO DAILY 01/20/19 magnesium hydroxide 400 mg/5 mL oral suspension 30 ml PO QHS PRN ml 01/20/19 multivitamin,tx-minerals tablet 1 tab PO DAILY 01/20/19 oxycodone 5 mg tablet 5 mg PO Q4H PRN tab 01/20/19 polyethylene glycol 3350 17 gram oral powder packet 17 g PO DAILY 01/20/19 Aspirin 325 mg PO DAILY@0800 tablet 02/11/19 Primary Care Physician: Cabrera Taylor III, MD [Primary Care Provider] - Test Results: Test results from this visit will be discussed in further detail at your follow- up appointment, if applicable. Please Follow Up With: Akshat Taylor MD - [phone] When: Call to make an appointment to be seen in about 7 days.
[2019-02-11 07:00] LABS: Bedside Glucose 126 mg/dL (70-110)
[2019-02-11 07:28] VITALS: PULSE 78
[2019-02-11] MEDS: amLODIPine 10 MG Tablet PO (09:03)
[2019-02-11] MEDS: Aspirin 325 MG Tablet PO (09:03)
[2019-02-11] MEDS: Losartan Potassium 100 MG Tablet PO (09:03)
[2019-02-11] MEDS: Docusate Sodium 100 MG Capsule PO (09:03)
[2019-02-11] MEDS: hydroCHLOROthiazide 25 MG Tablet 12.5 MG PO (09:03)
[2019-02-11] MEDS: Polyethylene Glycol 3350 17 GM PACKET PO (09:03)
[2019-02-11 09:15] VITALS: BP 134/79; PULSE 91; RESP 20; O2SAT 91
== END 2019-02-11 05:31 | disposition home or self-care (01) ==
LOC: PCU 20:17 → CLSP 02-11 08:29
PROVIDERS: Admitting Provider Surgery; Family Provider Family Medicine; PCP Family Medicine; Referring Provider Surgery; Visit Provider Surgery
DX: E11.621 Type 2 diabetes mellitus with foot ulcer (principal); E11.51 Type 2 diabetes mellitus with diabetic peripheral angiopathy without gangrene; L89.624 Pressure ulcer of left heel, stage 4; I10 Essential (primary) hypertension; F17.210 Nicotine dependence, cigarettes, uncomplicated; Z86.73 Personal history of transient ischemic attack (TIA), and cerebral infarction without residual deficits; Z79.84 Long term (current) use of oral hypoglycemic drugs; Z79.899 Other long term (current) drug therapy; J44.9 Chronic obstructive pulmonary disease, unspecified
CPT/HCPCS: 36200; 36245; 36415; 37221; 37226; 75625; 75710; 76937; 80048; 82962; 85025; 85027; 85347; 86850; 86900; 93005; 96360; 99152; 99153; 99218; C1760; J7030; J7040; J7120; Q9967; C1725; C1769; C1876; C1887; C1894; G0378; G0379

== ENCOUNTER 2019-02-11 11:12 | Inpatient (IN) | payer MEDICARE, MEDICAID, SELFPAY ==
[2019-02-10 10:30] VITALS: BMI 28.6
[2019-02-11] VITALS (9 sets, daily range): BP systolic 125–145; BP diastolic 69–82; PULSE 89–112; RESP 18–28; TEMP 36–37.2; O2SAT 85–99; BMI 32.2
--- NOTE | 2019-02-11 11:39 | ADUL_ITS ---
Reason For Study: Right leg cool to touch Right Velocities Supf Femoral Artery, prox = 27.5 cm./sec. Supf Femoral Artery, mid = 21.8 cm./sec. SFA dist and below, no flow noted. Procedure Exam performed portable in ED. Comments Prelim to Dr. Taylor. Interpretation Summary Very low flow right superficial femoral artery with no flow noted in the distal right superficial femoral artery Flow is noted in the right common femoral and profunda femoral arteries. Ordering Physician: Luis F Delacruz Referring Physician: GOMEZ Taylor M.D. Performed By: Jennifer Ag RVT
--- NOTE | 2019-02-11 12:51 | ED.VIS.GEN ---
History of Present Illness Chief Complaint: Lower Extremity Injury Informant: Patient, Family Onset: Today, Hours Timing: Continuous Current Severity: Mild Maximum Severity: Mild Narrative: 68-year-old female who was just discharged from the hospital this morning after undergoing a stent placement in her left superficial femoral artery and common iliac. She said that after arriving home, her family noticed her right lower extremity was somewhat discolored and cold. She denies any right leg pain or trouble moving her right foot. No paresthesias. She states that she did not notice this when she left the hospital today. Past Medical History - Allergies and Home Meds Allergies/Adverse Reactions: Allergies atorvastatin [From Lipitor] Allergy (Verified 02/11/19 11:17) Other quinapril [From Accupril] Allergy (Verified 02/11/19 11:17) Rash Primary Care Physician: Cabrera Taylor III, MD [Primary Care Provider] - Prior records reviewed: Yes Surgical History: - - Bladder Surgery x2; right carotid endarectomy; and bladder stimulator placed at back Smoking Status: Current every day smoker Review of Systems All systems negative except as indicated General: Denies: Chills, Fever, Sweats Eyes: Denies: Visual changes - bilaterally, Diplopia ENT: Denies: Rhinorrhea, Sore throat Cardiovascular: Denies: Chest pain, Palpitations Respiratory: Denies: Dyspnea, Cough, Dyspnea on exertion Gastrointestinal: Denies: Abdominal pain, Nausea, Vomiting, Diarrhea, Melena, Hematochezia Genitourinary: Denies: Dysuria, Hematuria, Frequency Musculoskeletal: Denies: Back pain, Extremity Pain Skin: Denies: Rash, Wounds Neurological: Denies: Headache, Weakness, Parasthesia, Numbness Physical Exam Vital Signs/Narrative: Vital Signs Temp Pulse Resp BP Pulse Ox 02/11/19 11:16 98.9 F 93 02/11/19 11:14 98.9 F 111 H 19 H 135/76 H 85 General: Well nourished, Well developed, No Acute Distress Head: Normocephalic, Atraumatic Eyes: Perrl, EOMI ENT: Moist mucous membranes, No rhinorrhea Neck: Supple, Nontender Cardiovascular: Regular rate, Regular rhythm, No murmurs Respiratory: No distress, CTA bilaterally, Chest nontender Abdomen: Soft, Nontender, Nondistended, Normal bowel sounds Back: Nontender, Normal Inspection Extremities: Nontender, - - Right lower extremity is cool to the touch from the mid calf distally. There is no palpable pulse. Her right groin incision is fairly unremarkable appearing. Skin: Normal color, No rash Neurological: Alert, Oriented x3, Cranial nerves II-XII grossly intact, Normal Strength, Normal Sensation Psychological: Normal affect, Normal Mood Diagnostic/Tx/Re-eval - Medical Decision Making I called Dr. Taylor after my initial examination. He requested a stat duplex arterial study. There was no flow visualized. He came to the bedside and examined her during the study and he is going to admit the patient to his service. - Critical Care Time Critical care time (excluding procedures): 30-74 minutes ED Disposition - Plan for ED Patient: Disposition: Acute Care Hospital [facility] Diagnosis: Ischemia of right lower extremity Referrals: Cabrera Taylor III, MD [Primary Care Provider] -
[2019-02-11 13:03] LABS: Absolute Lymphocyte Count 1.01 X10^3/ul (0.83-4.51); Absolute Neutrophil Count 6.6 X10^3/uL (2.0-7.7); Basophil# 0.04 X10^3/uL; Basophil% 0.4 % (0-1); Eosinophil# 0.24 X10^3/uL; Eosinophils% 2.7 % (0-5); Hematocrit 34.5 % (37-47); Hemoglobin 11.5 g/dl (12.0-15.0); Lymphocyte # 1.01 X10^3/ul (4.0); Lymphocyte % 11.3 % (19-41); Mean Corp Hgb Conc 33.3 g/gl (32-36); Mean Corpuscular Hgb 30.9 pg (27.0-32.0); Mean Corpuscular Volume 92.7 fL (81-99); Mean Platelet Vol. 9.8 fl (6.2-12.0); Monocyte# 1.04 X10^3/uL; Monocyte% 11.7 % (0-10); Neutrophil # 6.58 X10^3/uL (2.7-7.7); Neutrophil % 73.8 % (47-70); Platelet Count 258 K/mm3 (150-450); RBC Distribution Width CV 13.5 % (11.6-14.6); RBC Distribution Width SD 45.4 fl (35.1-43.9); Red Blood Count 3.72 M/mm3 (4.2-5.4); White Blood Count 8.9 K/mm3 (4.4-11.0)
--- NOTE | 2019-02-11 13:03 | HP.PCM_ITS ---
Problem List (1) Ischemia of right lower extremity Status: Acute History of Present Illness Date of Admission: 02/11/19 The patient is a 68 year old F who returns to the emergency room after discharge from the progressive care unit at the [facility] this morning. By report the patient literally arrived home noted coolness of the right foot and returned to the emergency room. I initially saw the patient in the office on January 20, 2019. She had a nonhealing left calcaneal ulcer. She had had preoperative PVRs demonstrating significant disease bilaterally with the right DP and PT ABIs of only 0.52 and 0.5 in the left 0.44 and 0.39. Yesterday in the [employer] [employer] via a retrograde right common femoral artery approach I performed a abdominal pelvic left lower extremity arteriogram. There was clinically significant stenosis high-grade of the left proximal common iliac and occlusion of the left superficial femoral artery with diffuse disease involving the superficial femoral artery. The superficial femoral artery was treated with a long angioplasty and focal area of stenting in its midsection. The left proximal common iliac was treated with a Rosina stent. There was 30% stenosis of the very proximal right external iliac noted. There was significant irregular plaque noted at the distal right external iliac and common femoral which interfered with closure ability. Perclose and minx devices both failed and so pressure was held for hemostasis. Hemostasis was achieved and the patient was subsequently observed overnight. The patient appeared to be stable earlier this morning. She had no specific complaints. Interestingly she still is not complaining of any right foot pain. The right foot however is certainly noted to be cooler. Duplex imaging was obtained of the proximal right thigh and lower extremity in the emergency room. There is flow noted in the right superficial femoral artery and profundofemoral artery however in the mid thigh the right superficial femoral artery occludes. Past Medical History Past Medical History (Chronic Problems): Chronic Problems (Last Reviewed 01/20/19 @ 10:08 by Katie Torres) HTN (hypertension) (Chronic) Chronic ulcer of left heel with fat layer exposed (Chronic) Decubitus ulcer of left heel, stage 4 (Chronic) PAD (peripheral artery disease) (Chronic) Tobacco abuse (Chronic) Medical History: Medical History (Last Reviewed 01/20/19 @ 10:08 by Katie Torres) Hx TIA/stroke w/o resid (Acute) Z86.73 Diabetes (Acute) E11.9 Neurogenic bladder (Acute) N31.9 Urinary retention (Acute) R33.9 Neurogenic bladder (Acute) N31.9 Urge incontinence (Acute) N39.41 Nocturia (Acute) R35.1 Intertrochanteric fracture of left hip (Acute) S72.142A Left humeral fracture (Suspected) S42.302A HTN (hypertension) (Chronic) I10 Chronic ulcer of left heel with fat layer exposed (Chronic) L97.422 Decubitus ulcer of left heel, stage 4 (Chronic) L89.624 PAD (peripheral artery disease) (Chronic) I73.9 Tobacco abuse (Chronic) Z72.0 Allergies atorvastatin [From Lipitor] Allergy (Verified 02/11/19 11:17) Other quinapril [From Accupril] Allergy (Verified 02/11/19 11:17) Rash Home Medications: Ambulatory Orders Medication Instructions Recorded metFORMIN HCl [Glucophage] 1 tab PO BID 09/26/17 Amlodipine Besylate [Norvasc] 10 mg PO DAILY 06/16/18 Cholecalciferol (Vitamin D3) 2,000 unit PO DAILY 06/16/18 [Vitamin D3] Hydrochlorothiazide [Hctz] 12.5 mg PO DAILY 06/16/18 Losartan Potassium [Cozaar] 100 mg PO DAILY 06/16/18 Naproxen 500 mg PO QHS 09/08/18 Rosuvastatin Calcium 5 mg PO QHS 09/08/18 Collagenase [Santyl] 1 applic TOPICAL DAILY 12/23/18 acetaminophen 500 mg tablet 500 mg PO Q6H PRN 01/20/19 docusate sodium 100 mg capsule 100 mg PO DAILY 01/20/19 magnesium hydroxide 400 mg/5 mL 30 ml PO QHS PRN ml 01/20/19 oral suspension multivitamin,tx-minerals tablet 1 tab PO DAILY 01/20/19 oxycodone 5 mg tablet 5 mg PO Q4H PRN tab 01/20/19 polyethylene glycol 3350 17 gram 17 g PO DAILY 01/20/19 oral powder packet Aspirin 325 mg PO DAILY@0800 tablet 02/11/19 Surgical History: Surgical History (Last Reviewed 01/20/19 @ 10:08 by Katie Torres) Hx of tonsillectomy (Acute) Z90.89 Hx of bladder repair surgery (Acute) Z98.890 History of partial hysterectomy (Acute) Z90.711 History of lumpectomy of right breast (Acute) Z98.890 History of right-sided carotid endarterectomy (Acute) Z98.890 2008 Surgical History: - - Bladder Surgery x2; right carotid endarectomy; and bladder stimulator placed at back Smoking Status: Current every day smoker VTE Information - Inpt Only VTE Present on Admission: No Patient Problems: Active and Suspected Problems (Last Reviewed 01/20/19 @ 10:08 by Katie Torres) Ischemia of right lower extremity (Acute) - Physical Exam General: Alert, Oriented x3, Cooperative, No apparent distress Extremities: - - Right common femoral puncture site is supple nontender not expansile. There is ecchymosis present. The right thigh is warm. The right lower extremity demonstrates coolness about the mid calf and distally. Chronic venous stasis changes noted. Inability to Doppler signals at the right DP or PT level. Left common femoral is approximately 2+. Left popliteal 2+. Vital Signs Temp Pulse Resp BP Pulse Ox 98.9 F 111 H 19 H 135/76 H 93 02/11/19 11:16 02/11/19 11:14 02/11/19 11:14 02/11/19 11:14 02/11/19 11:16 Oxygen Flow Rate (L/min) 4 Oxygen Delivery Method Nasal Cannula Weight: 193 lb 9.054 oz Body Mass Index (BMI) 32.2 Finger Stick Blood Glucose 156 Laboratory Tests Past 24 Hrs 02/11/19 02/11/19 12:40 12:40 WBC Pending RBC Pending Hgb Pending Hct Pending MCV Pending MCH Pending MCHC Pending RDW Pending RDW Differential Pending Plt Count Pending Neut % (Auto) Pending Absolute Neuts (auto) Pending Total Counted Pending Sodium Pending Potassium Pending Chloride Pending Carbon Dioxide Pending Anion Gap Pending BUN Pending Creatinine Pending Est GFR (MDRD) Af Amer Pending Est GFR (MDRD) Non-Af Pending BUN/Creatinine Ratio Pending Glucose Pending Calcium Pending Assessment/Plan All Active Problems (Last Reviewed 01/20/19 @ 10:08 by Katie Torres) Ischemia of right lower extremity (Acute) Hx of tonsillectomy (Acute) Hx of bladder repair surgery (Acute) History of partial hysterectomy (Acute) History of lumpectomy of right breast (Acute) History of right-sided carotid endarterectomy (Acute) Hx TIA/stroke w/o resid (Acute) Diabetes (Acute) Neurogenic bladder (Acute) Urinary retention (Acute) Neurogenic bladder (Acute) Urge incontinence (Acute) Nocturia (Acute) Intertrochanteric fracture of left hip (Acute) Findings would suggest acute occlusion of the right mid superficial femoral artery. Whether this was secondary to chronic disease with subsequent low flow related to the manual pressure held upon the common femoral artery at ye sterday's procedure is unclear. Whether there is been embolization of plaque. Whether there is significant proximal disease inhibiting distal flow. At this point trying to decide whether an open right common femoral endarterectomy would be appropriate versus angiographic study of the right lower extremity with possible intervention to the right superficial femoral artery. Clearly based upon the symptoms and preoperative ABIs the patient has multi segmental disease involving the right lower extremity likely similar to the left. This appears to however be an acute progression. I believe that it is reasonable to offer the patient a abdominal pelvic right lower extremity arteriogram with attempt at endovascular intervention. With family members present I have discussed the technique, benefits, risks, alternatives. No guarantees whatsoever success have been offered. The patient is also aware that this could require conversion to an open right common femoral artery endarterectomy. The patient is obese making groin access difficult. Yesterday's access was performed under ultrasound guidance and I would anticipate similar technique today. Laboratory will be obtained. We will proceed on with endovascular intervention pending [employer] availability and my availability. The patient and family members have had an opportunity to ask and have questions answered. They understand there are no guarantees of improvement. They are willing to proceed on with attempt at revascularization. Akshat Taylor M.D., F.A.C.S.
[2019-02-11 13:04] LABS: POSITIVE COUNT NO; POSITIVE DIFFERENTIAL NO; POSITIVE MORPHOLOGY NO
[2019-02-11 13:09] LABS: Anion Gap 4 (5-15); BUN 16 mg/dL (7-18); BUN/Creat Ratio 25.8 RATIO (10-20); Calcium,Total 8.9 mg/dL (8.5-10.1); Chloride 102 mmol/L (98-107); Creatinine, Serum 0.62 mg/dL (0.55-1.02); EST Glomerular Filtration Rate 101 mL/min (>60); Est Glom Filt Rate - Afr Amer 123 mL/min (>60); Estimated Creatinine Clearance 47.78 ml/min; Glucose 134 mg/dL (74-106); Potassium 3.9 mmol/L (3.5-5.1); Sodium Level 139 mmol/L (136-145)
--- NOTE | 2019-02-11 13:21 | ED.RN ---
PT TO GO TO [facility] AT 1400.
--- NOTE | 2019-02-11 13:36 | ED.RN ---
awaiting [facility] to [facility] pt at 1400
[2019-02-11] MEDS: 0.9% Normal Saline 1,000 ML 100 ML IV (13:46)
--- NOTE | 2019-02-11 17:00 | PLAQ_PTH ---
PATIENT: TATIANA DICKEY LOC: ICU U#:[id number] AGE/SX: 68/F ROOM: ICU04 RE02/11/[address]: Dr. Akshat Taylor MD : 1950 BED: 1 DIS: 02/12/2019 SPEC #: [id number] RECD: 02/14/19 10:25 STATUS: JOÃO REShi #: [id number] TIANNA: 02/11/19 17:[address]: Akshat Taylor DEPT: SURGICAL PATHOLOGY RECD BY: Tamara Hendrix ENTERED: 02/14/19 11:08 SP TYPE: PLAQUE OTHR DR: MD Dr. Cabrera Conner III, MD Tissues: PLAQUE Procedures: Decalcification bone/plaque Surgery Specimen Level III HEADER OPERATION: Common femoral endarterectomy and patch angioplasty PRE-OP DIAGNOSIS: Hematoma right lower extremity TISSUE SUBMITTED: Plaque MICROSCOPIC DIAGNOSIS Plaque, femoral endarterectomy: Arteriosclerotic tissue with focal calcifications (plaque). SJ:maame 02/17/19 GROSS DESCRIPTION Received in fixative is one container labeled with the patient's name and designated plaque. The specimen consists of an elongated fragment of indurated and gritty tissue measuring 7 cm in length and 1?cm in average diameter. The specimen is sectioned and totally submitted in one cassette after decalcification. / AM:maame 02/14/19 TC:5 CPT: 31705, 03326
[2019-02-11 17:56] LABS: ACT Activated Clotting Time 235 sec (74-137)
[2019-02-11 17:56] LABS: ACT Activated Clotting Time 202 sec (74-137)
[2019-02-11 17:56] LABS: ACT Activated Clotting Time 235 sec (74-137)
[2019-02-11 17:56] LABS: ACT Activated Clotting Time 125 sec (74-137)
[2019-02-11] MEDS: Midazolam 2 MG/2 ML Syringe 1 MG IV ×3 (18:15→19:30)
[2019-02-11] MEDS: Morphine 4 MG/ML Syringe IV (18:47)
--- NOTE | 2019-02-11 19:16 | PCM.OPRPT ---
Problem List (1) Ischemia of right lower extremity Status: Acute Report of Operation Date of Procedure: 02/11/19 Pre-Operative Diagnosis: Acute ischemia right lower extremity Post-Operative Diagnosis: Acute thrombosis right common femoral artery Surgery/Procedure Performed:: Abdominal pelvic right lower extremity arteriogram with right common femoral artery 5 x 8 and 6 x 8 Powerflex angioplasty Description of Surgical Findings:: Timeout and informed consent was obtained. 68-year-old female was taken to the special procedures lab. Throughout the procedure she received fentanyl and Versed per nursing documentation is sedation. Bilateral groins were sterilely prepped and draped. Under ultrasound guidance some effort was required to gain access to the left common femoral artery however I was eventually successful. Under 2% lidocaine was instilled. Micropuncture needle was utilized. Micropuncture wire micropuncture sheath. An 035 J-wire was inserted and then a 5 [place] short sheath was inserted. Hand-injection views demonstrated that the sheath entered right at the bifurcation of the profundofemoral the superficial femoral. The superficial femoral artery had been previously treated yesterday with angioplasty and focal stenting it appeared to be completely occluded today. The patient has a left common iliac stent in place. Using an angled Glidewire and a 5 [place] flush catheter was able to gain access past that into the abdominal aorta. Using 15 cc a second for 15 cc of Visipaque I obtained a aortogram. This demonstrated patency of the common iliac stent patency of the aorta there was patency of the right common iliac and external iliac but occlusion of the right common femoral. At this point the patient was noted to be obese with ecchymosis and previous hematoma in the right groin area. I did not know what existed further down the right leg because pre-intervention duplex examining suggested there was occlusion of the right superficial femoral artery. I wanted to try to obtain better imaging and so I was able to place a angled Glidewire to the right distal external iliac. I placed a 035 quick cross catheter. Utilizing a stiff Glidewire was able to gain access through the area of occlusion nicely into the common femoral distal to the occlusion site I was able to visualize the right profundofemoral and superficial femoral. I then elected to place a 5 x 8 Powerflex balloon. Is of note that the patient did receive 9000 units of heparin once I placed a 6 [place] Cook sheath to allow for further manipulation that was carefully advanced past the Rosina stent in the left iliac without difficulty. I then had improvement of flow in the right common femoral artery. I did utilize then a thrombectomy device export catheter 6 [place]. I obtained some material but imaging subsequent to that demonstrated that there was a small elevated plaque and the previous puncture site had restarted bleeding. 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 That point I felt that the bleeding had been controlled the right groin was supple I elected to remove the sheath from the left ACT measurements were performed then a minx device was deployed on the left excellent hemostasis was achieved the patient was observed in the Associate Creative Director for another 45 minutes during all of this time the right groin was stable. She was then taken to the PCU for observation. It is of note that upon arrival to the PCU she started bleeding from the right groin. Pressure was again held. Subsequent to this she still seem to be having bleeding problems from the right groin so it was elected to make arrangements to take her to surgery for open exploration of the right groin to control the hemorrhage. Her angiographic images demonstrate a patent abdominal aorta patent left common iliac the profundofemoral artery on the left is patent the superficial femoral artery which is been treated yesterday now at least proximally appear to be occluded I did not take further views down the left lower extremity. Subsequent to the intervention on the right the right common femoral artery had been reopened in the right external iliac was patent the right profundofemoral was patent in the proximal right superficial femoral artery is patent however it did occluded in its midsection. External blood loss during this procedure was minimal. The patient did have a right groin hematoma which was gently massaged during the case and was quite supple at the end of the procedure prior to her being taken to the progressive care unit. Specimens none. Drains none. Blood loss minimally externally. Akshat Taylor M.D., F.A.C.S.
--- NOTE | 2019-02-11 19:22 | OP.PCM_ITS ---
Problem List (1) Ischemia of right lower extremity Status: Acute Report of Operation Date of Procedure: 02/11/19 Pre-Operative Diagnosis: Acute ischemia right lower extremity Post-Operative Diagnosis: Acute thrombosis right common femoral artery Surgery/Procedure Performed:: Abdominal pelvic right lower extremity arteriogram with right common femoral artery 5 x 8 and 6 x 8 Powerflex angioplasty Description of Surgical Findings:: Timeout and informed consent was obtained. 68-year-old female was taken to the special procedures lab. Throughout the procedure she received fentanyl and V ersed per nursing documentation is sedation. Bilateral groins were sterilely prepped and draped. Under ultrasound guidance some effort was required to gain access to the left common femoral artery however I was eventually successful. Under 2% lidocaine was instilled. Micropuncture needle was utilized. Micropuncture wire micropuncture sheath. An 035 J-wire was inserted and then a 5 [place] short sheath was inserted. Hand-injection views demonstrated that the sheath entered right at the bifurcation of the profundofemoral the superficial femoral. The superficial femoral artery had been previously treated yesterday with angioplasty and focal stenting it appeared to be completely occluded today. The patient has a left common iliac stent in place. Using an angled Glidewire and a 5 [place]ican flush catheter was able to gain access past that into the abdominal aorta. Using 15 cc a second for 15 cc of Visipaque I obtained a aortogram. This demonstrated patency of the common iliac stent patency of the aorta there was patency of the right common iliac and external iliac but occlusion of the right common femoral. At this point the patient was noted to be obese with ecchymosis and previous hematoma in the right groin area. I did not know what existed further down the right leg because pre-intervention duplex examining suggested there was occlusion of the right superficial femoral artery. I wanted to try to obtain better imaging and so I was able to place a angled Glidewire to the right distal external iliac. I placed a 035 quick cross catheter. Utilizing a stiff Glidewire was able to gain access through the area of occlusion nicely into the common femoral distal to the occlusion site I was able to visualize the right profundofemoral and superficial femoral. I then elected to place a 5 x 8 Powerflex balloon. Is of note that the patient did receive 9000 units of heparin once I placed a 6 [place] Cook sheath to allow for further manipulation that was carefully advanced past the Rosina stent in the left iliac without difficulty. I then had improvement of flow in the right common femoral artery. I did utilize then a thrombectomy device export catheter 6 [place]ican. I obtained some material but imaging subsequent to that demonstrated that there was a small elevated plaque and the previous puncture site had restarted bleeding. 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 That point I felt that the bleeding had been controlled the right groin was supple I elected to remove the sheath from the left ACT measurements were performed then a minx device was deployed on the left excellent hemostasis was achieved the patient was observed in the Departmental Shipping Clerk for another 45 minutes during all of this time the right groin was stable. She was then taken to the PCU for observation. It is of note that upon arrival to the PCU she started bleeding from the right groin. Pressure was again held. Subsequent to this she still seem to be having bleeding problems from the right groin so it was elected to make arrangements to take her to surgery for open exploration of the right groin to control the hemorrhage. Her angiographic images demonstrate a patent abdominal aorta patent left common iliac the profundofemoral artery on the left is patent the superficial femoral artery which is been treated yesterday now at least proximally appear to be occluded I did not take further views down the left lower extremity. Subsequent to the intervention on the right the right common femoral artery had been reopened in the right external iliac was patent the right profundofemoral was patent in the proximal right superficial femoral artery is patent however it did occluded in its midsection. External blood loss during this procedure was minimal. The patient did have a right groin hematoma which was gently massaged during the case and was quite supple at the end of the procedure prior to her being taken to the progressive care unit. Specimens none. Drains none. Blood loss minimally externally. Akshat Taylor M.D., F.A.C.S.
--- NOTE | 2019-02-11 19:57 | CPS ---
IS placed in room. Patient to surgery at this time.
[2019-02-11] MEDS: Cefazolin 2 GM in 0.9% Normal Saline 100 ML IV (20:01)
--- NOTE | 2019-02-11 20:02 | NURSING ---
1924: Patient yelling and flailing, right groin continues to bleed. photographic laboratory supervisor present and holding pressure. Multiple family members present at bedside to comfort the patient. This spoke to patient and was able to calm patient. 1929: Dr. Taylor present in room and ordered versed 1mg iv x1. Dr. Taylor holding pressure on groin at this time. 1949: report called to Ayse in OR, ancef municipal bond trader to OR, pharmacy aware to tube ancef to OR. Dr. Taylor at bedside holding pressure to right groin 1954:Patient to OR with Dr. Funk holding pressure on right groin. Hematoma noted to right groin, continuing to bleed. Family at the bedside and escorted to the surgical waiting room.
[2019-02-11] MEDS: Heparin Injection (Vial) 5,000 UNIT/ML VIAL 5000 UNIT (20:10)
[2019-02-11 22:36] LABS: ACT Activated Clotting Time 235 sec (74-137)
[2019-02-11 22:36] LABS: ACT Activated Clotting Time 230 sec (74-137)
[2019-02-11 22:36] LABS: ACT Activated Clotting Time 164 sec (74-137)
[2019-02-11 22:36] LABS: ACT Activated Clotting Time 219 sec (74-137)
--- NOTE | 2019-02-11 22:37 | PCM.OPRPT ---
Problem List (1) Ischemia of right lower extremity Status: Acute (2) Injury of right common femoral artery Status: Acute Qualifiers: Encounter type: subsequent encounter Qualified Code(s): S75.001D - Unspecified injury of femoral artery, right leg, subsequent encounter Report of Operation Date of Procedure: 02/11/19 Pre-Operative Diagnosis: Intractable bleeding percutaneous access site right common femoral artery Post-Operative Diagnosis: Right common femoral artery access site with extensive calcific plaque Surgery/Procedure Performed:: Right groin exploration with right common femoral endarterectomy and control of access site bleeding with bovine patch angioplasty. Vascu-Guard 1 x 10 cm reference number of [id number]. PN number [id number] lot number [id number]. Expiry date 03/05/2023 Description of Surgical Findings:: Timeout and informed consent was obtained. 68-year-old female had been hemostatic on the arteriogram table in the [employer] was moved to the PCU where she began to bleed. Despite right groin pressure being held for over 1 hour she continued to demonstrate signs of bleeding. This point it was felt the best approach was to perform an open exploration and control of hemorrhage. The patient was noted to have severely diseased vessels with extensive calcific plaque particularly within the right common femoral artery. She was taken to the operating room. Ancef 2 g were given intravenously. The abdomen groins a lot legs were sterilely prepped and draped. The patient underwent general endotracheal intubation anesthesia. A slightly vertical oblique incision was made in the right groin sharp dissection carried down through the substance tissue access was gained initially to the inguinal ligament got access below the inguinal ligament identify the common femoral artery circumferentially dissected free placed a vessel loop then dissected distally. Only then did become upon the access site in the common femoral artery and when the tissue overlying was dissected free it did begin to bleed. The patient received 8000 units of heparin then ACT measurements guided to additional 1000 unit aliquots. The superficial femoral artery and profundofemoral artery were dissected free. Helms clamp was placed to approximate the common femoral artery which actually was the external iliac artery and then on the superficial femoral and profundofemoral. Good hemostasis was achieved. 11 blade was used to make an arteriotomy this was extended with Sepulveda scissors. A very long endarterectomy including underneath the inguinal ligament and the distal external iliac and the entire common femoral and proximal superficial femoral artery was performed. A inversion enterectomy was performed of the profundofemoral artery. Careful debris was removed with fine forceps. The superficial femoral artery intimal was heavily calcified and thick. It was tacked in place with several interrupted 7-0 Prolene sutures. The 1 cm wide by 10 similar along bovine patch was selected with slightly narrowed. But the entire length was utilized. A patch angioplasty was performed with a running 6-0 Prolene. Prior to completion there appeared to be good arterial inflow. The vessel was irrigated. The anastomosis was completed. There appeared to be good flow into the superficial femoral artery and profundofemoral artery based upon Doppler evaluation. Hemostasis was achieved with gentle pressure and then I Did Place, FloSeal covering the entire patch area. The wound was closed in layers with a deep layer of interrupted 2-0 Vicryl. Then running 3-0 Vicryl and then a running septic or 4-0 Monocryl. Steri-Strips Telfa ABD tape dressings applied. Sponge and instrument and needle counts were reported the surgical correct. Specimen is plaque. Drains none. Blood loss intraoperatively 150 cc. She was taken to the intensive care unit in satisfactory condition without apparent complication. The right lower extremity is warm down to the distal calf. Foot was cool. The left groin was inspected and there is been no new bleeding from it throughout the procedure. The soft tissue fullness in the suprapubic area has softened significantly First assistance included Dr. Andres Huynh and Mr. Andres Reyes [facility] Akshat Taylor M.D., F.A.C.S. education trainer: Blade Huynh education trainer: Andres Macdonald Type of Anesthesia:: General Anesthesiologist: Norm Shook
--- NOTE | 2019-02-11 22:45 | OP.PCM_ITS ---
Problem List (1) Ischemia of right lower extremity Status: Acute (2) Injury of right common femoral artery Status: Acute Qualifiers: Encounter type: subsequent encounter Qualified Code(s): S75.001D - Unspecified injury of femoral artery, right leg, subsequent encounter Report of Operation Date of Procedure: 02/11/19 Pre-Operative Diagnosis: Intractable bleeding percutaneous access site right common femoral artery Post-Operative Diagnosis: Right common femoral artery access site with extensive calcific plaque Surgery/Procedure Performed:: Right groin exploration with right common femoral endarterectomy and control of access site bleeding with bovine patch angioplasty. Vascu-Guard 1 x 10 cm reference number of [id number]. PN number [id number] lot number [id number]. Expiry date 03/05/2023 Description of Surgical Findings:: Timeout and informed consent was obtained. 68-year-old female had been hemostatic on the arteriogram table in the [facility] was moved to the PCU where she began to bleed. Despite right groin pressure being held for over 1 hour she continued to demonstrate signs of bleeding. This point it was felt the best approach was to perform an open exploration and control of hemorrhage. The patient was noted to have severely diseased vessels with extensive calcific plaque particularly within the right common femoral artery. She was taken to the operating room. Ancef 2 g were given intravenously. The abdomen groins a lot legs were sterilely prepped and draped. The patient underwent general endotracheal intubation anesthesia. A slightly vertical oblique incision was made in the right groin sharp dissection carried down through the substance tissue access was gained initially to the inguinal ligament got access below the inguinal ligament identify the common femoral artery circumferentially dissected free placed a vessel loop then dissected distally. Only then did become upon the access site in the common femoral artery and when the tissue overlying was dissected free it did begin to bleed. The patient received 8000 units of heparin then ACT measurements guided to additional 1000 unit aliquots. The superficial femoral artery and profundofemoral artery were dissected free. Helms clamp was placed to approximate the common femoral artery which actually was the external iliac artery and then on the superficial femoral and profundofemoral. Good hemostasis was achieved. 11 blade was used to make an arteriotomy this was extended with Sepulveda scissors. A very long endarterectomy including underneath the inguinal ligament and the distal external iliac and the entire common femoral and proximal superficial femoral artery was performed. A inversion enterectomy was performed of the profundofemoral artery. Careful debris was removed with fine forceps. The superficial femoral artery intimal was heavily calcified and thick . It was tacked in place with several interrupted 7-0 Prolene sutures. The 1 cm wide by 10 similar along bovine patch was selected with slightly narrowed. But the entire length was utilized. A patch angioplasty was performed with a running 6-0 Prolene. Prior to completion there appeared to be good arterial inflow. The vessel was irrigated. The anastomosis was completed. There appeared to be good flow into the superficial femoral artery and profundofemoral artery based upon Doppler evaluation. Hemostasis was achieved with gentle pressure and then I Did Place, FloSeal covering the entire patch area. The wound was closed in layers with a deep layer of interrupted 2-0 Vicryl. Then running 3-0 Vicryl and then a running septic or 4-0 Monocryl. Steri-Strips Telfa ABD tape dressings applied. Sponge and instrument and needle counts were reported the surgical correct. Specimen is plaque. Drains none. Blood loss intraoperatively 150 cc. She was taken to the intensive care unit in satisfactory condition without apparent complication. The right lower extremity is warm down to the distal calf. Foot was cool. The left groin was inspected and there is been no new bleeding from it throughout the procedure. The soft tissue fullness in the suprapubic area has softened significantly First assistance included Dr. Andres Huynh and Mr. Andres Reyes [facility] Akshat Taylor M.D., F.A.C.S. math specialist: Blade Huynh math specialist: Andres Macdonald Type of Anesthesia:: General Anesthesiologist: Norm Shook
[2019-02-12] VITALS (16 sets, daily range): BP systolic 97–136; BP diastolic 57–97; PULSE 90–112; RESP 19–25; TEMP 36.4–36.9; O2SAT 94–99; BMI 33.1
[2019-02-12] MEDS: 0.9% Normal Saline 1,000 ML 100 ML IV (00:35)
[2019-02-12 05:26] LABS: Absolute Lymphocyte Count 0.95 X10^3/ul (0.83-4.51); Absolute Neutrophil Count 6.8 X10^3/uL (2.0-7.7); Basophil# 0.02 X10^3/uL; Basophil% 0.2 % (0-1); Eosinophil# 0.07 X10^3/uL; Eosinophils% 0.8 % (0-5); Hematocrit 26.4 % (37-47); Hemoglobin 8.8 g/dl (12.0-15.0); Lymphocyte # 0.95 X10^3/ul (4.0); Lymphocyte % 10.6 % (19-41); Mean Corp Hgb Conc 33.3 g/gl (32-36); Mean Corpuscular Hgb 31.2 pg (27.0-32.0); Mean Corpuscular Volume 93.6 fL (81-99); Mean Platelet Vol. 9.6 fl (6.2-12.0); Monocyte# 1.06 X10^3/uL; Monocyte% 11.9 % (0-10); Neutrophil # 6.81 X10^3/uL (2.7-7.7); Neutrophil % 76.3 % (47-70); Platelet Count 215 K/mm3 (150-450); RBC Distribution Width CV 13.5 % (11.6-14.6); RBC Distribution Width SD 46.2 fl (35.1-43.9); Red Blood Count 2.82 M/mm3 (4.2-5.4); White Blood Count 8.9 K/mm3 (4.4-11.0)
[2019-02-12 05:32] LABS: POSITIVE COUNT NO; POSITIVE DIFFERENTIAL NO; POSITIVE MORPHOLOGY NO
[2019-02-12] MEDS: Cefazolin 2 GM in 0.9% Normal Saline 100 ML IV ×2 (05:36→09:27)
[2019-02-12 05:55] LABS: Anion Gap 5 (5-15); BUN 11 mg/dL (7-18); BUN/Creat Ratio 25.8 RATIO (10-20); Calcium,Total 7.5 mg/dL (8.5-10.1); Chloride 109 mmol/L (98-107); Creatinine, Serum 0.43 mg/dL (0.55-1.02); EST Glomerular Filtration Rate 156 mL/min (>60); Est Glom Filt Rate - Afr Amer 188 mL/min (>60); Estimated Creatinine Clearance 45.85 ml/min; Glucose 142 mg/dL (74-106); Potassium 3.8 mmol/L (3.5-5.1); Sodium Level 142 mmol/L (136-145)
--- NOTE | 2019-02-12 07:15 | NURSING ---
Rt radial A-line discontinued per verbal order, pressure held [id number];pressure occlusive drsg applied. MIVF D/C'd as ordered as well. Mike Taylor and Syed at bedside reviewing pt Hx.
--- NOTE | 2019-02-12 07:15 | PCM.PN.SRG ---
Patient Problems: Active and Suspected Problems (Last Reviewed 01/20/19 @ 10:08 by Katie Torres) Ischemia of right lower extremity (Acute) Injury of right common femoral artery (Acute) Subjective: Pt on venimask. 28%.. RR 25 No specific complaints. No nauses. No c/o right leg pain at rest - Physical Exam Lungs: Wheezes, - - non productive cough Extremities: - - right groin deep ecchymosis, appropriate tenderness, warm to ankle, cool foot, fleeting right PT doppler,, Left groin supple, NT, warm left foot Vital Signs Temp Pulse Resp BP Pulse Ox 98.5 F 103 H 25 H 132/84 H 96 02/12/19 04:00 02/12/19 06:00 02/12/19 06:00 02/12/19 06:00 02/12/19 06:00 Oxygen Flow Rate (L/min) 3 Oxygen Delivery Method Venturi Mask Weight: 197 lb 15.602 oz Body Mass Index (BMI) 33.1 Finger Stick Blood Glucose 156 Intake and Output for Last 24 Hours 02/10/19 02/11/19 02/12/19 23:59 23:59 23:59 Intake Total 675 / 675 Output Total 600 / 600 725 / 725 Balance -600 / -600 -50 / -50 Laboratory Tests Past 24 Hrs 02/10/19 02/11/19 02/11/19 17:55 12:40 12:40 WBC 8.9 Corrected WBC RBC 3.72 L Hgb 11.5 L Hct 34.5 L MCV 92.7 MCH 30.9 MCHC 33.3 RDW 13.5 RDW Differential 45.4 H Plt Count 258 MPV 9.8 Immature Gran % (Auto) 0.100 Neut % (Auto) 73.8 H Lymph % (Auto) 11.3 L [place] % (Auto) 11.7 H Eos % (Auto) 2.7 Baso % (Auto) 0.4 Immature Gran # (Auto) Absolute Neuts (auto) 6.6 Absolute Lymphs (auto) 1.01 Absolute Monos (auto) Total Counted Not Reportable Neutrophils % (Manual) Band Neutrophils % Lymphocytes % (Manual) Monocytes % (Manual) Eosinophils % (Manual) Basophils % (Manual) Metamyelocytes % Myelocytes % Promyelocytes % Blast Cells % Plasma Cell % (Manual) Other Cells % Lymphocytes # Nucleated RBCs/100 WBC Differential Comment Diff Path Review Hypersegmented Neuts Atypical Lymphocytes Reactive Lymphocytes Smudge Cells Eosinophilia # Basophilia # Toxic Granulation Dohle Bodies Ethan Rods Platelet Estimate Plt Morphology Comment RBC Morphology Polychromasia Hypochromasia Poikilocytosis Basophilic Stippling Anisocytosis Microcytosis Macrocytosis Spherocytes Sickle Cells Target Cells Tear Drop Cells Ovalocytes Stomatocytes [place] Bodies Raoul Cells Bite Cells Acanthocytes (Spur) Rouleaux Schistocytes Activated Clotting Time Sodium 139 Potassium 3.9 Chloride 102 Carbon Dioxide 33.0 H Anion Gap 4 L BUN 16 Creatinine 0.62 Estim Creat Clear Calc 47.78 Est GFR (MDRD) Af Amer 123 Est GFR (MDRD) Non-Af 101 BUN/Creatinine Ratio 25.8 H Glucose 134 H Calcium 8.9 Crossmatch See Detail 02/11/19 02/11/19 02/11/19 15:03 16:01 16:32 WBC Corrected WBC RBC Hgb Hct MCV MCH MCHC RDW RDW Differential Plt Count MPV Immature Gran % (Auto) Neut % (Auto) Lymph % (Auto) [place] % (Auto) Eos % (Auto) Baso % (Auto) Immature Gran # (Auto) Absolute Neuts (auto) Absolute Lymphs (auto) Absolute Monos (auto) Total Counted Neutrophils % (Manual) Band Neutrophils % Lymphocytes % (Manual) Monocytes % (Manual) Eosinophils % (Manual) Basophils % (Manual) Metamyelocytes % Myelocytes % Promyelocytes % Blast Cells % Plasma Cell % (Manual) Other Cells % Lymphocytes # Nucleated RBCs/100 WBC Differential Comment Diff Path Review Hypersegmented Neuts Atypical Lymphocytes Reactive Lymphocytes Smudge Cells Eosinophilia # Basophilia # Toxic Granulation Dohle Bodies Ethan Rods Platelet Estimate Plt Morphology Comment RBC Morphology Polychromasia Hypochromasia Poikilocytosis Basophilic Stippling Anisocytosis Microcytosis Macrocytosis Spherocytes Sickle Cells Target Cells Tear Drop Cells Ovalocytes Stomatocytes [place] Bodies [place] Cells Bite Cells Acanthocytes (Spur) Rouleaux Schistocytes Activated Clotting Time 125 235 H 235 H Sodium Potassium Chloride Carbon Dioxide Anion Gap BUN Creatinine Estim Creat Clear Calc Est GFR (MDRD) Af Amer Est GFR (MDRD) Non-Af BUN/Creatinine Ratio Glucose Calcium Crossmatch 02/11/19 02/11/1902/11/19 17:08 20:41 21:05 WBC Corrected WBC RBC Hgb Hct MCV MCH MCHC RDW RDW Differential Plt Count MPV Immature Gran % (Auto) Neut % (Auto) Lymph % (Auto) [place] % (Auto) Eos % (Auto) Baso % (Auto) Immature Gran # (Auto) Absolute Neuts (auto) Absolute Lymphs (auto) Absolute Monos (auto) Total Counted Neutrophils % (Manual) Band Neutrophils % Lymphocytes % (Manual) Monocytes % (Manual) Eosinophils % (Manual) Basophils % (Manual) Metamyelocytes % Myelocytes % Promyelocytes % Blast Cells % Plasma Cell % (Manual) Other Cells % Lymphocytes # Nucleated RBCs/100 WBC Differential Comment Diff Path Review Hypersegmented Neuts Atypical Lymphocytes Reactive Lymphocytes Smudge Cells Eosinophilia # Basophilia # Toxic Granulation Dohle Bodies Ethan Rods Platelet Estimate Plt Morphology Comment RBC Morphology Polychromasia Hypochromasia Poikilocytosis Basophilic Stippling Anisocytosis Microcytosis Macrocytosis Spherocytes Sickle Cells Target Cells Tear Drop Cells Ovalocytes Stomatocytes [place] Bodies [place] Cells Bite Cells Acanthocytes (Spur) Rouleaux Schistocytes Activated Clotting Time 202 H 164 H 230 H Sodium Potassium Chloride Carbon Dioxide Anion Gap BUN Creatinine Estim Creat Clear Calc Est GFR (MDRD) Af Amer Est GFR (MDRD) Non-Af BUN/Creatinine Ratio Glucose Calcium Crossmatch 02/11/19 02/11/19 02/12/19 21:57 22:22 00:10 WBC Cancelled Corrected WBC Cancelled RBC Cancelled Hgb Cancelled Hct Cancelled MCV Cancelled MCH Cancelled MCHC Cancelled RDW Cancelled RDW Differential Cancelled Plt Count Cancelled MPV Cancelled Immature Gran % (Auto) Cancelled Neut % (Auto) Cancelled Lymph % (Auto) Cancelled [place] % (Auto) Cancelled Eos % (Auto) Cancelled Baso % (Auto) Cancelled Immature Gran # (Auto) Cancelled Absolute Neuts (auto) Cancelled Absolute Lymphs (auto) Cancelled Absolute Monos (auto) Cancelled Total Counted Cancelled Neutrophils % (Manual) Cancelled Band Neutrophils % Cancelled Lymphocytes % (Manual) Cancelled Monocytes % (Manual) Cancelled Eosinophils % (Manual) Cancelled Basophils % (Manual) Cancelled Metamyelocytes % Cancelled Myelocytes % Cancelled Promyelocytes % Cancelled Blast Cells % Cancelled Plasma Cell % (Manual) Cancelled Other Cells % Cancelled Lymphocytes # Cancelled Nucleated RBCs/100 WBC Cancelled Differential Comment Cancelled Diff Path Review Cancelled Hypersegmented Neuts Cancelled Atypical Lymphocytes Cancelled Reactive Lymphocytes Cancelled Smudge Cells Cancelled Eosinophilia # Cancelled Basophilia # Cancelled Toxic Granulation Cancelled Dohle Bodies Cancelled Ethan Rods Cancelled Platelet Estimate Cancelled Plt Morphology Comment Cancelled RBC Morphology Cancelled Polychromasia Cancelled Hypochromasia Cancelled Poikilocytosis Cancelled Basophilic Stippling Cancelled Anisocytosis Cancelled Microcytosis Cancelled Macrocytosis Cancelled Spherocytes Cancelled Sickle Cells Cancelled Target Cells Cancelled Tear Drop Cells Cancelled Ovalocytes Cancelled Stomatocytes Cancelled [place] Bodies Cancelled [place] Cells Cancelled Bite Cells Cancelled Acanthocytes (Spur) Cancelled Rouleaux Cancelled Schistocytes Cancelled Activated Clotting Time 235 H 219 H Sodium Potassium Chloride Carbon Dioxide Anion Gap BUN Creatinine Estim Creat Clear Calc Est GFR (MDRD) Af Amer Est GFR (MDRD) Non-Af BUN/Creatinine Ratio Glucose Calcium Crossmatch 02/12/19 02/12/19 02/12/19 00:10 05:15 05:15 WBC 8.9 Corrected WBC RBC 2.82 L Hgb 8.8 L Hct 26.4 L MCV 93.6 MCH 31.2 MCHC 33.3 RDW 13.5 RDW Differential 46.2 H Plt Count 215 MPV 9.6 Immature Gran % (Auto) 0.200 Neut % (Auto) 76.3 H Lymph % (Auto) 10.6 L [place] % (Auto) 11.9 H Eos % (Auto) 0.8 Baso % (Auto) 0.2 Immature Gran # (Auto) Absolute Neuts (auto) 6.8 Absolute Lymphs (auto) 0.95 Absolute Monos (auto) Total Counted Not Reportable Neutrophils % (Manual) Band Neutrophils % Lymphocytes % (Manual) Monocytes % (Manual) Eosinophils % (Manual) Basophils % (Manual) Metamyelocytes % Myelocytes % Promyelocytes % Blast Cells % Plasma Cell % (Manual) Other Cells % Lymphocytes # Nucleated RBCs/100 WBC Differential Comment Diff Path Review Hypersegmented Neuts Atypical Lymphocytes Reactive Lymphocytes Smudge Cells Eosinophilia # Basophilia # Toxic Granulation Dohle Bodies Ethan Rods Platelet Estimate Plt Morphology Comment RBC Morphology Polychromasia Hypochromasia Poikilocytosis Basophilic Stippling Anisocytosis Microcytosis Macrocytosis Spherocytes Sickle Cells Target Cells Tear Drop Cells Ovalocytes Stomatocytes [place] Bodies Raoul Cells Bite Cells Acanthocytes (Spur) Rouleaux Schistocytes Activated Clotting Time Sodium Cancelled 142 Potassium Cancelled 3.8 Chloride Cancelled 109 H Carbon Dioxide Cancelled 28.0 Anion Gap Cancelled 5 BUN Cancelled 11 Creatinine Cancelled 0.43 L Estim Creat Clear Calc Cancelled 45.85 Est GFR (MDRD) Af Amer Cancelled 188 Est GFR (MDRD) Non-Af Cancelled 156 BUN/Creatinine Ratio Cancelled 25.8 H Glucose Cancelled 142 H Calcium Cancelled 7.5 L Crossmatch Medical Necessity - Tobacco Use Smoking Status: Current every day smoker Assessment/Plan All Active Problems (Last Reviewed 01/20/19 @ 10:08 by Katie Torres) Ischemia of right lower extremity (Acute) Injury of right common femoral artery (Acute) Hx of tonsillectomy (Acute) Hx of bladder repair surgery (Acute) History of partial hysterectomy (Acute) History of lumpectomy of right breast (Acute) History of right-sided carotid endarterectomy (Acute) Hx TIA/stroke w/o resid (Acute) Diabetes (Acute) Neurogenic bladder (Acute) Urinary retention (Acute) Neurogenic bladder (Acute) Urge incontinence (Acute) Nocturia (Acute) Intertrochanteric fracture of left hip (Acute) Appreciate Dr Lynch's assistance Mobilize pt Start po Will continue plavix b/o extensive vascular surgery with stents on left and endarterectomy on right DC jodie (note made of bladder stimulator) Pt received a significant amount of intraoperative IVF. Will stop fluids now.
--- NOTE | 2019-02-12 07:17 | CON.PCM_ITS ---
Reason for Consult Date of Consultation: 02/12/19 Reason for Consultation: Respiratory failure History of Present Illness: The patient is a 68-year-old female, with a history as outlined below, who was initially admitted to the hospital on February 10 to undergo arteriogram, angioplasty and stenting of lower extremity vascular structures due to a nonhealing left calcaneal ulcer. The patient was taken to the OR and underwent treatment of her multisegmental peripheral vascular occlusive disease. The patient was subsequently discharged home on February 11. Shortly after returning home, the patient's family noticed that the patient's lower extremity had become discolored and cold. She then returned to the emergency department for evaluation. Lower extremity duplex was performed in the emergency department, with findings suggestive of occlusion of the right mid superficial femoral artery. The patient was then taken back to the OR on February 11 and underwent right lower extremity arteriogram and angioplasty. Postoperatively, she was taken to the PCU, where she started to bleed from the groin puncture site. Unfortunately, despite pressure being applied, the patient's bleeding was intractable and she was taken back to the OR once again on February 11 where she underwent right groin exploration with right common femoral endarterectomy and bovine patch angioplasty. The patient has a reported history of COPD of unknown severity along with an extensive smoking history and baseline hypoxic respiratory failure, for which she is noncompliant with the use of prescribed medical therapy. She does not currently follow with a occupational therapy instructor. She also has a history of neurogenic bladder and has a bladder stimulator in place. In addition to the aforementioned, she has known hypertension, hyperlipidemia and diabetes mellitus. Overnight, the patient was monitored in the intensive care setting. She was noted to be a mouth breather and had to be placed on a Ventimask to maintain appropriate oxygen saturations. As of this morning, she has an FiO2 requirement of 28%. She denies any shortness of breath, chest tightness, wheezing or cough. Past Medical History Past Medical History (Chronic Problems): Chronic Problems (Last Reviewed 01/20/19 @ 10:08 by Katie Torres) HTN (hypertension) (Chronic) Chronic ulcer of left heel with fat layer exposed (Chronic) Decubitus ulcer of left heel, stage 4 (Chronic) PAD (peripheral artery disease) (Chronic) Tobacco abuse (Chronic) Medical History: Medical History (Last Reviewed 01/20/19 @ 10:08 by Katie Torres) Hx TIA/stroke w/o resid (Acute) Z86.73 Diabetes (Acute) E11.9 Neurogenic bladder (Acute) N31.9 Urinary retention (Acute) R33.9 Neurogenic bladder (Acute) N31.9 Urge incontinence (Acute) N39.41 Nocturia (Acute) R35.1 Intertrochanteric fracture of left hip (Acute) S72.142A Left humeral fracture (Suspected) S42.302A HTN (hypertension) (Chronic) I10 Chronic ulcer of left heel with fat layer exposed (Chronic) L97.422 Decubitus ulcer of left heel, stage 4 (Chronic) L89.624 PAD (peripheral artery disease) (Chronic) I73.9 Tobacco abuse (Chronic) Z72.0 Allergies atorvastatin [From Lipitor] Allergy (Verified 02/11/19 11:17) Other quinapril [From Accupril] Allergy (Verified 02/11/19 11:17) Rash Home Medications: Ambulatory Orders Medication Instructions Recorded Amlodipine Besylate [Norvasc] 10 mg PO DAILY 06/16/18 Hydrochlorothiazide [Hctz] 12.5 mg PO DAILY 06/16/18 Losartan Potassium [Cozaar] 100 mg PO DAILY 06/16/18 Naproxen 500 mg PO QHS 09/08/18 Rosuvastatin Calcium 5 mg PO QHS 09/08/18 acetaminophen 500 mg tablet 500 mg PO Q6H PRN 01/20/19 docusate sodium 100 mg capsule 100 mg PO DAILY 01/20/19 oxycodone 5 mg tablet 5 mg PO Q4H PRN tab 01/20/19 polyethylene glycol 3350 17 gram 17 g PO DAILY 01/20/19 oral powder packet Aspirin 325 mg PO DAILY@0800 tablet 02/11/19 Atorvastatin Calcium 10 mg PO QHS 02/11/19 Ammonium Lactate [Amlactin] 1 applicatio TOPICAL DAILY 02/12/19 Amoxicillin/Potassium Clav [Amox 1 each PO BID 02/12/19 Tr-K Clv 875-125 mg Tab] Clopidogrel Bisulfate [Plavix] 75 mg PO DAILY 02/12/19 Doxycycline 100 mg PO BID 02/12/19 Metformin HCl 500 mg PO BID 02/12/19 Surgical History: Surgical History (Last Reviewed 01/20/19 @ 10:08 by Katie Torres) Hx of tonsillectomy (Acute) Z90.89 Hx of bladder repair surgery (Acute) Z98.890 History of partial hysterectomy (Acute) Z90.711 History of lumpectomy of right breast (Acute) Z98.890 History of right-sided carotid endarterectomy (Acute) Z98.890 2008 Surgical History: - - Bladder Surgery x2; right carotid endarectomy; and bladder stimulator placed at back Smoking Status: Current every day smoker Review of Systems Constitutional: Denies: Chills, Fever Eyes: Denies: Blurred vision, Double vision HEENT: Reports: Difficulty Hearing Cardiovascular: Denies: Chest Pain, Chest Pressure Respiratory: Reports: Cough. Denies: Shortness of Breath Gastrointestinal: Denies: Abdominal Pain, Nausea, Vomiting Genitourinary: Denies: Dysuria Musculoskeletal: Reports: - - + Groin pain from hematoma Skin: Reports: - - + Hematoma as above Neurological: Denies: Numbness, Tingling, Focal weakness Psychiatric: Denies: Anxiety, Depression, Homicidal Ideations, Suicidal Ideations Hematologic/ Lymphatic: Reports: Anemia Objective: The patient's most recent lab work, culture data and imaging studies have all been personally reviewed. - Physical Exam General: Alert, Cooperative HEENT: Atraumatic, PERRLA, Normocephalic Oral: No Gingival or Mucosal Lesions/ Ulcerations Neck: Supple, No Nodes, Trachea Midline Lungs: No rhonchi, No wheeze, No rales, Diminished, Tachypneic Cardiovascular: Normal S1, Normal S2, No murmurs, Tachycardic Abdomen: Bowel Sounds Present, Soft, Non Tender Extremities: Cool, Diminished Peripheral Pulses, - - + Right hematoma/ecchymosis Musculoskeletal: No Muscle Wasting Lymphatic: No Cervical, Supraclavicular, or Inguinal Adenopathy Neurological: Neuro grossly intact Psych/Mental Status: Anxious, Impulsive, Restless Vital Signs Temp Pulse Resp BP Pulse Ox 98.5 F 103 H 25 H 132/84 H 96 02/12/19 04:00 02/12/19 06:00 02/12/19 06:00 02/12/19 06:00 02/12/19 06:00 Oxygen Flow Rate (L/min) 3 Oxygen Delivery Method Venturi Mask Weight: 197 lb 15.602 oz Body Mass Index (BMI) 33.1 Finger Stick Blood Glucose 156 Intake and Output for Last 24 Hours 02/10/19 02/11/19 02/12/19 23:59 23:59 23:59 Intake Total 675 / 675 Output Total 600 / 600 725 / 725 Balance -600 / -600 -50 / -50 Laboratory Tests Past 24 Hrs 02/10/19 02/11/19 02/11/19 17:55 12:40 12:40 WBC 8.9 Corrected WBC RBC 3.72 L Hgb 11.5 L Hct 34.5 L MCV 92.7 MCH 30.9 MCHC 33.3 RDW 13.5 RDW Differential 45.4 H Plt Count 258 MPV 9.8 Immature Gran % (Auto) 0.100 Neut % (Auto) 73.8 H Lymph % (Auto) 11.3 L [place] % (Auto) 11.7 H Eos % (Auto) 2.7 Baso % (Auto) 0.4 Immature Gran # (Auto) Absolute Neuts (auto) 6.6 Absolute Lymphs (auto) 1.01 Absolute Monos (auto) Total Counted Not Reportable Neutrophils % (Manual) Band Neutrophils % Lymphocytes % (Manual) Monocytes % (Manual) Eosinophils % (Manual) Basophils % (Manual) Metamyelocytes % Myelocytes % Promyelocytes % Blast Cells % Plasma Cell % (Manual) Other Cells % Lymphocytes # Nucleated RBCs/100 WBC Differential Comment Diff Path Review Hypersegmented Neuts Atypical Lymphocytes Reactive Lymphocytes Smudge Cells Eosinophilia # Basophilia # Toxic Granulation Dohle Bodies Ethan Rods Platelet Estimate Plt Morphology Comment RBC Morphology Polychromasia Hypochromasia Poikilocytosis Basophilic Stippling Anisocytosis Microcytosis Macrocytosis Spherocytes Sickle Cells Target Cells Tear Drop Cells Ovalocytes Stomatocytes Fan-[place] Bodies Pep[place]rell Cells Bite Cells Acanthocytes (Spur) Rouleaux Schistocytes Activated Clotting Time Sodium 139 Potassium 3.9 Chloride 102 Carbon Dioxide 33.0 H Anion Gap 4 L BUN 16 Creatinine 0.62 Estim Creat Clear Calc 47.78 Est GFR (MDRD) Af Amer 123 Est GFR (MDRD) Non-Af 101 BUN/Creatinine Ratio 25.8 H Glucose 134 H Calcium 8.9 Crossmatch See Detail 02/11/19 02/11/19 02/11/19 15:03 16:01 16:32 WBC Corrected WBC RBC Hgb Hct MCV MCH MCHC RDW RDW Differential Plt Count MPV Immature Gran % (Auto) Neut % (Auto) Lymph % (Auto) [place] % (Auto) Eos % (Auto) Baso % (Auto) Immature Gran # (Auto) Absolute Neuts (auto) Absolute Lymphs (auto) Absolute Monos (auto) Total Counted Neutrophils % (Manual) Band Neutrophils % Lymphocytes % (Manual) Monocytes % (Manual) Eosinophils % (Manual) Basophils % (Manual) Metamyelocytes % Myelocytes % Promyelocytes % Blast Cells % Plasma Cell % (Manual) Other Cells % Lymphocytes # Nucleated RBCs/100 WBC Differential Comment Diff Path Review Hypersegmented Neuts Atypical Lymphocytes Reactive Lymphocytes Smudge Cells Eosinophilia # Basophilia # Toxic Granulation Dohle Bodies Ethan Rods Platelet Estimate Plt Morphology Comment RBC Morphology Polychromasia Hypochromasia Poikilocytosis Basophilic Stippling Anisocytosis Microcytosis Macrocytosis Spherocytes Sickle Cells Target Cells Tear Drop Cells Ovalocytes Stomatocytes Afn-[place] Bodies Raoul Cells Bite Cells Acanthocytes (Spur) Rouleaux Schistocytes Activated Clotting Time 125 235 H 235 H Sodium Potassium Chloride Carbon Dioxide Anion Gap BUN Creatinine Estim Creat Clear Calc Est GFR (MDRD) Af Amer Est GFR (MDRD) Non-Af BUN/Creatinine Ratio Glucose Calcium Crossmatch 02/11/19 02/11/19 02/11/19 17:08 20:41 21:05 WBC Corrected WBC RBC Hgb Hct MCV MCH MCHC RDW RDW Differential Plt Count MPV Immature Gran % (Auto) Neut % (Auto) Lymph % (Auto) [place] % (Auto) Eos % (Auto) Baso % (Auto) Immature Gran # (Auto) Absolute Neuts (auto) Absolute Lymphs (auto) Absolute Monos (auto) Total Counted Neutrophils % (Manual) Band Neutrophils % Lymphocytes % (Manual) Monocytes % (Manual) Eosinophils % (Manual) Basophils % (Manual) Metamyelocytes % Myelocytes % Promyelocytes % Blast Cells % Plasma Cell % (Manual) Other Cells % Lymphocytes # Nucleated RBCs/100 WBC Differential Comment Diff Path Review Hypersegmented Neuts Atypical Lymphocytes Reactive Lymphocytes Smudge Cells Eosinophilia # Basophilia # Toxic Granulation Dohle Bodies Ethan Rods Platelet Estimate Plt Morphology Comment RBC Morphology Polychromasia Hypochromasia Poikilocytosis Basophilic Stippling Anisocytosis Microcytosis Macrocytosis Spherocytes Sickle Cells Target Cells Tear Drop Cells Ovalocytes Stomatocytes [place] Bodies Raoul Cells Bite Cells Acanthocytes (Spur) Rouleaux Schistocytes Activated Clotting Time 202 H 164 H 230 H Sodium Potassium Chloride Carbon Dioxide Anion Gap BUN Creatinine Estim Creat Clear Calc Est GFR (MDRD) Af Amer Est GFR (MDRD) Non-Af BUN/Creatinine Ratio Glucose Calcium Crossmatch 02/11/19 02/11/19 02/12/19 21:57 22:22 00:10 WBC Cancelled Corrected WBC Cancelled RBC Cancelled Hgb Cancelled Hct Cancelled MCV Cancelled MCH Cancelled MCHC Cancelled RDW Cancelled RDW Differential Cancelled Plt Count Cancelled MPV Cancelled Immature Gran % (Auto) Cancelled Neut % (Auto) Cancelled Lymph % (Auto) Cancelled [place] % (Auto) Cancelled Eos % (Auto) Cancelled Baso % (Auto) Cancelled Immature Gran # (Auto) Cancelled Absolute Neuts (auto) Cancelled Absolute Lymphs (auto) Cancelled Absolute Monos (auto) Cancelled Total Counted Cancelled Neutrophils % (Manual) Cancelled Band Neutrophils % Cancelled Lymphocytes % (Manual) Cancelled Monocytes % (Manual) Cancelled Eosinophils % (Manual) Cancelled Basophils % (Manual) Cancelled Metamyelocytes % Cancelled Myelocytes % Cancelled Promyelocytes % Cancelled Blast Cells % Cancelled Plasma Cell % (Manual) Cancelled Other Cells % Cancelled Lymphocytes # Cancelled Nucleated RBCs/100 WBC Cancelled Differential Comment Cancelled Diff Path Review Cancelled Hypersegmented Neuts Cancelled Atypical Lymphocytes Cancelled Reactive Lymphocytes Cancelled Smudge Cells Cancelled Eosinophilia # Cancelled Basophilia # Cancelled Toxic Granulation Cancelled Dohle Bodies Cancelled Ethan Rods Cancelled Platelet Estimate Cancelled Plt Morphology Comment Cancelled RBC Morphology Cancelled Polychromasia Cancelled Hypochromasia Cancelled Poikilocytosis Cancelled Basophilic Stippling Cancelled Anisocytosis Cancelled Microcytosis Cancelled Macrocytosis Cancelled Spherocytes Cancelled Sickle Cells Cancelled Target Cells Cancelled Tear Drop Cells Cancelled Ovalocytes Cancelled Stomatocytes Cancelled Fan-[place] Bodies Cancelled Pep[place]rell Cells Cancelled Bite Cells Cancelled Acanthocytes (Spur) Cancelled Rouleaux Cancelled Schistocytes Cancelled Activated Clotting Time 235 H 219 H Sodium Potassium Chloride Carbon Dioxide Anion Gap BUN Creatinine Estim Creat Clear Calc Est GFR (MDRD) Af Amer Est GFR (MDRD) Non-Af BUN/Creatinine Ratio Glucose Calcium Crossmatch 02/12/19 02/12/19 02/12/19 00:10 05:15 05:15 WBC 8.9 Corrected WBC RBC 2.82 L Hgb 8.8 L Hct 26.4 L MCV 93.6 MCH 31.2 MCHC 33.3 RDW 13.5 RDW Differential 46.2 H Plt Count 215 MPV 9.6 Immature Gran % (Auto) 0.200 Neut % (Auto) 76.3 H Lymph % (Auto) 10.6 L [place] % (Auto) 11.9 H Eos % (Auto) 0.8 Baso % (Auto) 0.2 Immature Gran # (Auto) Absolute Neuts (auto) 6.8 Absolute Lymphs (auto) 0.95 Absolute Monos (auto) Total Counted Not Reportable Neutrophils % (Manual) Band Neutrophils % Lymphocytes % (Manual) Monocytes % (Manual) Eosinophils % (Manual) Basophils % (Manual) Metamyelocytes % Myelocytes % Promyelocytes % Blast Cells % Plasma Cell % (Manual) Other Cells % Lymphocytes # Nucleated RBCs/100 WBC Differential Comment Diff Path Review Hypersegmented Neuts Atypical Lymphocytes Reactive Lymphocytes Smudge Cells Eosinophilia # Basophilia # Toxic Granulation Dohle Bodies Ethan Rods Platelet Estimate Plt Morphology Comment RBC Morphology Polychromasia Hypochromasia Poikilocytosis Basophilic Stippling Anisocytosis Microcytosis Macrocytosis Spherocytes Sickle Cells Target Cells Tear Drop Cells Ovalocytes Stomatocytes Fan[place] Bodies Raoul Cells Bite Cells Acanthocytes (Spur) Rouleaux Schistocytes Activated Clotting Time Sodium Cancelled 142 Potassium Cancelled 3.8 Chloride Cancelled 109 H Carbon Dioxide Cancelled 28.0 Anion Gap Cancelled 5 BUN Cancelled 11 Creatinine Cancelled 0.43 L Estim Creat Clear Calc Cancelled 45.85 Est GFR (MDRD) Af Amer Cancelled 188 Est GFR (MDRD) Non-Af Cancelled 156 BUN/Creatinine Ratio Cancelled 25.8 H Glucose Cancelled 142 H Calcium Cancelled 7.5 L Crossmatch Assessment/Plan RECOMMENDATIONS: 1. Discontinue Ventimask and transition to supplemental oxygen via nasal cannula. Goal to maintain oxygen saturations at or above 90%. 2. Start duo nebs every 6 hours while awake, along with PRN albuterol aerosols. 3. Stop continuous supplemental IV fluids. 4. Gentle advancement of diet, per surgery recommendations. 5. Okay to remove arterial line and [place] catheter. 6. Encourage incentive spirometer and PEP therapy. 7. Mobilize patient as tolerated. 8. Check CBC daily. Plan to transfuse if hemoglobin is less than 7 g/dL. 9. Hold BP medications for now. IMPRESSIONS: 1. Occlusive peripheral vascular disease status post surgical intervention Continue current supportive measures. Continue Plavix as ordered. Continue oxycodone for pain as needed. A component of the patient's pain may be secondary to reperfusion injury as a consequence of her recent revascularization. 2. Respiratory failure, presumed to be acute on chronic It was reported that the patient is supposed to utilize supplemental oxygen in her home environment, but is noncompliant with its use. Therefore, it is certainly possible that the patient does have a baseline supplemental oxygen requirement. For now, we will plan to continue to wean supplemental oxygen as tolerated. Continue bronchodilators as ordered. Encourage incentive spirometer use and mobilize patient as tolerated. 3. Anemia Likely secondary to intraoperative blood loss coupled with dilution from IV fluid administration. No overt signs of blood loss at the current time. Recommend monitoring CBC daily. Plan to transfuse if hemoglobin is less than 7 g/dL. 4. Presumed COPD of unknown severity/tobacco dependency Orders have been placed for scheduled duo nebs while awake along with as needed albuterol nebs. Ideally, the patient should follow-up in the pulmonary medicine clinic upon discharge so that baseline PFTs can be obtained an inhaler regimen optimized. Nicotine replacement therapy can be offered to the patient while she is admitted to the hospital. Smoking cessation would, of course, be highly advisable. 5. Hypertension/hyperlipidemia/diabetes mellitus Complicates care, management, recovery and prognosis. Hold antihypertensives for now, given labile blood pressures. Start Accu-Cheks and sliding scale insulin coverage. This note was generated with [employer] dictation software. It may contain incorrect words, spelling, and punctuation that were not noted in checking the note before signing. Code Visit Inpatient E&M: 33791 Init Hosp L3
[2019-02-12] MEDS: oxyCODONE 5 MG Tablet PO (08:03)
[2019-02-12] MEDS: Ipratropium/Albuterol Sulfate 3 ML AMPUL.NEB INHALATION (09:21)
--- NOTE | 2019-02-12 10:15 | CM.UR ---
Addendum entered by Aleena Strong 02/12/19 10:23: Upon hearing she was going to be transferred reviewed her network on [email or web address] and entered her ID but it returned saying unable to determine that she is eligible. Went ahead and did general search under the Health plan medicare securecare hmo and found these were in-network but no limited to: [facility] Pop Strong RN, CCM. Original Note: Participated in interdisciplinary rounds. Per RN patient is complaining of worsening pain in foot of surgical side, unable to find pulses w/doppler and she notified Dr. Taylor at time. Dr. Taylor here at this time. Transferring to different facility at this time. Pop Strong RN, CCM.
[2019-02-12] MEDS: HEPARIN/D5w 25,000 UNITS 25,000 UNITS/250 ML IV.SOLN. 5 UNITS IV (10:24)
[2019-02-12] MEDS: Collagenase 30gm Tube 1 APPLIC TOPICAL (10:25)
[2019-02-12] MEDS: 0.9% NaCl Peripheral Flush Adult/Peds IV ×2 (10:26→11:16)
--- NOTE | 2019-02-12 10:28 | PCM.DC.SUM ---
Discharge Date and Diagnosis - Problem List Patient Problems: Active and Suspected Problems (Last Reviewed 01/20/19 @ 10:08 by Katie Torres) Ischemia of right lower extremity (Acute) Injury of right common femoral artery (Acute) Date of Admission: 02/11/19 Date of Discharge: 02/12/19 - Primary Discharge Diagnosis Active and Suspected Problems (Last Reviewed 01/20/19 @ 10:08 by Katie Torres) Ischemia of right lower extremity (Acute) Injury of right common femoral artery (Acute) - Secondary Discharge Diagnosis Chronic Problems (Last Reviewed 01/20/19 @ 10:08 by Katie Torres) HTN (hypertension) (Chronic) Chronic ulcer of left heel with fat layer exposed (Chronic) Decubitus ulcer of left heel, stage 4 (Chronic) PAD (peripheral artery disease) (Chronic) Tobacco abuse (Chronic) Hospital Course and Treatment Operations: - - Date of Procedure: 09/08/18 Primary Surgeon/Physician: Caden Kapoor DO structural engineering technician: Michael Del Valle Pre-Operative Diagnosis: Comminuted left hip fracture, imtertrochanteric with subtrochanteric extension Post-Operative Diagnosis: same Surgery/Procedure Performed:: ORIF left hip with Intertan nail Description of Surgical Findings:: see op note Estimated Blood Loss: 100cc Specimen's removed: none Type of Anesthesia:: General ASA Class: ASA3 Plus Emergency 2018: Abdominal pelvic left lower extremity arteriogram with left superficial femoral angioplasty and focal prot?g? stenting. Left common iliac angioplasty and stenting. February 11, 2019: Abdominal pelvic right lower extremity arteriogram with right common femoral artery angioplasty February 11, 2019 right iliofemoral endarterectomy with bovine patch angioplasty for control of hemorrhage and subsequent thrombosis Summary of Care Provided: The patient is a 68 year old F who was referred to me for nonhealing ulceration of her left calcaneus. On February 10, 2018 took the patient to the special procedures lab and via retrograde approach from the right common femoral artery performed a abdominal pelvic left lower extremity arteriogram. Findings included 80% stenosis of the proximal left common iliac and mid segment occlusion of the left superficial femoral artery with subsequent three-vessel runoff. I was able to get access through the occluded left superficial femoral artery and performed long segment angioplasty secondary to the severity and length of the generalized disease in addition to the occlusion. A short area of dissection in the mid SFA felt was potentially flow-limiting and I placed a 6 x 80 mm prot?g? stent. The left common iliac stenosis was treated with angioplasty and a 7 x 39 mm Rosina stent. At the completion of that procedure there was bleeding from the access site of the right groin and failure to of deployment of Perclose and minx devices. Pressure was held. The patient was observed overnight. She appeared to be stable and was discharged. Soon after arrival home change in the right foot was noted and she returned to the hospital. On February 11 then her return date I took her back to the special procedures lab. I gained access retrograde from the left common femoral albeit challenging to identify. Perform abdominal pelvic and partial right lower extremity arteriogram. This demonstrated occlusion of the right common femoral artery.I initially 4 performed 5 x 80 mm Powerflex angioplasty. I got improvement with resumption of flow into the right profundofemoral and proximal superficial femoral artery but images then demonstrated occlusion of the right mid superficial femoral artery. Very poor flow was noted distally images were non-precise. I did not feel that I had adequate resolution of the common femoral occlusion though performed a limited export aspiration and 6 x 80 mm Powerflex angioplasty. At this time there was then recurrent bleeding from the day before his access site. Utilizing a combination of endovascular ballooning and external pressure the final image demonstrated wide-open flow through the common femoral artery with no bleeding. She was observed in the [facility] for an additional 30 minutes on the table and then was progressively moved to the progressive care unit. After arrival to the progressive care unit she had recurrent bleeding from the right groin. Pressure was held. It then became apparent the patient was uncomfortable the problem was not being resolved and so I elected to take the patient to the operating room. It did take some time to get OR staff back in. I then performed a open right groin expiration. Access was gained significantly proximal to the inguinal ligament onto the external iliac because at the time of surgery recurrent thrombosis of the common femoral was identified. There was not significant blood loss during the procedure. A long endarterectomy of the right iliofemoral artery was performed. The plaque extending into the proximal right superficial femoral artery was a very severe and calcific. I took it to a point where I thought I could secure it with 7-0 Prolene tacking sutures. I had retrograde flow from the profundofemoral. I placed a long 10 cm bovine patch and complete the endarterectomy. Hemostasis was intact. I did not run heparin overnight. The patient had been relatively hypotensive during the procedure and she received 4 L of crystalloid. To the degree I believe this was over replacement. Approximately 6:30 AM on February 12, 2019 on ICU rounds the patient appeared to be comfortable. Primary issues appear to be more with her chronic pulmonary disease and emphysema. The co chairman Dr. Zay Lynch was reviewing her situation as well. That point she had no complaints of right foot pain or lower extremity pain. Inspection of the right groin demonstrated that the incision was intact. There was no evidence of any bleeding overnight. She had the same degree of ecchymosis and induration of the suprapubic area and of the right lateral thigh area as she had the day before. The calf was warm down to the ankle. The foot was cool. Fleeting right posterior tibial Doppler signals were available. The right DP could not be identified. The patient had motor function of the foot. I received a contact at 9:20 AM that there is been an acute change in the patient. She was now extremely uncomfortable complaining of right foot pain. I returned to to find that the patient now was cool approximately from the proximal calf distally. She had loss of motor function of the foot. The groin was reinspected was unchanged. Trying to listen with hand Doppler demonstrated faint signals in the thigh. I could not get popliteal or distal signals. At this point I explained to family member a son present as well as the patient that I felt I did not have additional options locally to assist her. I made it aware that unfortunately feel that she is at significant risk for right foot amputation. After discussion with patient and her son who was present and communicating with other family members I recommended transfer to a tertiary center and I received gracious acceptance from Dr. Barber at [facility] vascular surgery. The patient will be kept n.p.o. and we will initiate low-dose heparin at 500 units an hour. Akshat Taylor M.D., F.A.C.S. Patient Problems: Active and Suspected Problems (Last Reviewed 01/20/19 @ 10:08 by Katie Torres) Ischemia of right lower extremity (Acute) Injury of right common femoral artery (Acute) - Physical Exam Vital Signs Temp Pulse Resp BP Pulse Ox 98.5 F 106 H 25 H 132/84 H 99 02/12/19 04:00 02/12/19 09:23 02/12/19 09:23 02/12/19 06:00 02/12/19 07:00 Oxygen Flow Rate (L/min) 3 Oxygen Delivery Method Nasal Cannula Weight: 198 lb 13.711 oz Body Mass Index (BMI) 33.1 Finger Stick Blood Glucose 156 Intake and Output for Last 24 Hours 02/10/19 02/11/19 02/12/19 23:59 23:59 23:59 Intake Total 675 / 675 Output Total 600 / 600 725 / 725 Balance -600 / -600 -50 / -50 Laboratory Tests Past 24 Hrs 02/10/19 02/11/19 02/11/19 17:55 12:40 12:40 WBC 8.9 Corrected WBC RBC 3.72 L Hgb 11.5 L Hct 34.5 L MCV 92.7 MCH 30.9 MCHC 33.3 RDW 13.5 RDW Differential 45.4 H Plt Count 258 MPV 9.8 Immature Gran % (Auto) 0.100 Neut % (Auto) 73.8 H Lymph % (Auto) 11.3 L Edmunds % (Auto) 11.7 H Eos % (Auto) 2.7 Baso % (Auto) 0.4 Immature Gran # (Auto) Absolute Neuts (auto) 6.6 Absolute Lymphs (auto) 1.01 Absolute Monos (auto) Total Counted Not Reportable Neutrophils % (Manual) Band Neutrophils % Lymphocytes % (Manual) Monocytes % (Manual) Eosinophils % (Manual) Basophils % (Manual) Metamyelocytes % Myelocytes % Promyelocytes % Blast Cells % Plasma Cell % (Manual) Other Cells % Lymphocytes # Nucleated RBCs/100 WBC Differential Comment Diff Path Review Hypersegmented Neuts Atypical Lymphocytes Reactive Lymphocytes Smudge Cells Eosinophilia # Basophilia # Toxic Granulation Dohle Bodies Ethan Rods Platelet Estimate Plt Morphology Comment RBC Morphology Polychromasia Hypochromasia Poikilocytosis Basophilic Stippling Anisocytosis Microcytosis Macrocytosis Spherocytes Sickle Cells Target Cells Tear Drop Cells Ovalocytes Stomatocytes Fan-Pierre Part Bodies [place] Cells Bite Cells Acanthocytes (Spur) Rouleaux Schistocytes Activated Clotting Time Sodium 139 Potassium 3.9 Chloride 102 Carbon Dioxide 33.0 H Anion Gap 4 L BUN 16 Creatinine 0.62 Estim Creat Clear Calc 47.78 Est GFR (MDRD) Af Amer 123 Est GFR (MDRD) Non-Af 101 BUN/Creatinine Ratio 25.8 H Glucose 134 H Calcium 8.9 Crossmatch See Detail 02/11/19 02/11/19 02/11/19 15:03 16:01 16:32 WBC Corrected WBC RBC Hgb Hct MCV MCH MCHC RDW RDW Differential Plt Count MPV Immature Gran % (Auto) Neut % (Auto) Lymph % (Auto) Edmunds % (Auto) Eos % (Auto) Baso % (Auto) Immature Gran # (Auto) Absolute Neuts (auto) Absolute Lymphs (auto) Absolute Monos (auto) Total Counted Neutrophils % (Manual) Band Neutrophils % Lymphocytes % (Manual) Monocytes % (Manual) Eosinophils % (Manual) Basophils % (Manual) Metamyelocytes % Myelocytes % Promyelocytes % Blast Cells % Plasma Cell % (Manual) Other Cells % Lymphocytes # Nucleated RBCs/100 WBC Differential Comment Diff Path Review Hypersegmented Neuts Atypical Lymphocytes Reactive Lymphocytes Smudge Cells Eosinophilia # Basophilia # Toxic Granulation Dohle Bodies Ethan Rods Platelet Estimate Plt Morphology Comment RBC Morphology Polychromasia Hypochromasia Poikilocytosis Basophilic Stippling Anisocytosis Microcytosis Macrocytosis Spherocytes Sickle Cells Target Cells Tear Drop Cells Ovalocytes Stomatocytes Fan-[place] Part Bodies [place] Cells Bite Cells Acanthocytes (Spur) Rouleaux Schistocytes Activated Clotting Time 125 235 H 235 H Sodium Potassium Chloride Carbon Dioxide Anion Gap BUN Creatinine Estim Creat Clear Calc Est GFR (MDRD) Af Amer Est GFR (MDRD) Non-Af BUN/Creatinine Ratio Glucose Calcium Crossmatch 02/11/19 02/11/19 02/11/19 17:08 20:41 21:05 WBC Corrected WBC RBC Hgb Hct MCV MCH MCHC RDW RDW Differential Plt Count MPV Immature Gran % (Auto) Neut % (Auto) Lymph % (Auto) Edmunds % (Auto) Eos % (Auto) Baso % (Auto) Immature Gran # (Auto) Absolute Neuts (auto) Absolute Lymphs (auto) Absolute Monos (auto) Total Counted Neutrophils % (Manual) Band Neutrophils % Lymphocytes % (Manual) Monocytes % (Manual) Eosinophils % (Manual) Basophils % (Manual) Metamyelocytes % Myelocytes % Promyelocytes % Blast Cells % Plasma Cell % (Manual) Other Cells % Lymphocytes # Nucleated RBCs/100 WBC Differential Comment Diff Path Review Hypersegmented Neuts Atypical Lymphocytes Reactive Lymphocytes Smudge Cells Eosinophilia # Basophilia # Toxic Granulation Dohle Bodies Ethan Rods Platelet Estimate Plt Morphology Comment RBC Morphology Polychromasia Hypochromasia Poikilocytosis Basophilic Stippling Anisocytosis Microcytosis Macrocytosis Spherocytes Sickle Cells Target Cells Tear Drop Cells Ovalocytes Stomatocytes Fan-[place] Part Bodies Raoul Cells Bite Cells Acanthocytes (Spur) Rouleaux Schistocytes Activated Clotting Time 202 H 164 H 230 H Sodium Potassium Chloride Carbon Dioxide Anion Gap BUN Creatinine Estim Creat Clear Calc Est GFR (MDRD) Af Amer Est GFR (MDRD) Non-Af BUN/Creatinine Ratio Glucose Calcium Crossmatch 02/11/19 02/11/19 02/12/19 21:57 22:22 00:10 WBC Cancelled Corrected WBC Cancelled RBC Cancelled Hgb Cancelled Hct Cancelled MCV Cancelled MCH Cancelled MCHC Cancelled RDW Cancelled RDW Differential Cancelled Plt Count Cancelled MPV Cancelled Immature Gran % (Auto) Cancelled Neut % (Auto) Cancelled Lymph % (Auto) Cancelled Edmunds % (Auto) Cancelled Eos % (Auto) Cancelled Baso % (Auto) Cancelled Immature Gran # (Auto) Cancelled Absolute Neuts (auto) Cancelled Absolute Lymphs (auto) Cancelled Absolute Monos (auto) Cancelled Total Counted Cancelled Neutrophils % (Manual) Cancelled Band Neutrophils % Cancelled Lymphocytes % (Manual) Cancelled Monocytes % (Manual) Cancelled Eosinophils % (Manual) Cancelled Basophils % (Manual) Cancelled Metamyelocytes % Cancelled Myelocytes % Cancelled Promyelocytes % Cancelled Blast Cells % Cancelled Plasma Cell % (Manual) Cancelled Other Cells % Cancelled Lymphocytes # Cancelled Nucleated RBCs/100 WBC Cancelled Differential Comment Cancelled Diff Path Review Cancelled Hypersegmented Neuts Cancelled Atypical Lymphocytes Cancelled Reactive Lymphocytes Cancelled Smudge Cells Cancelled Eosinophilia # Cancelled Basophilia # Cancelled Toxic Granulation Cancelled Dohle Bodies Cancelled Ethan Rods Cancelled Platelet Estimate Cancelled Plt Morphology Comment Cancelled RBC Morphology Cancelled Polychromasia Cancelled Hypochromasia Cancelled Poikilocytosis Cancelled Basophilic Stippling Cancelled Anisocytosis Cancelled Microcytosis Cancelled Macrocytosis Cancelled Spherocytes Cancelled Sickle Cells Cancelled Target Cells Cancelled Tear Drop Cells Cancelled Ovalocytes Cancelled Stomatocytes Cancelled Fan-Pierre Part Bodies Cancelled Raoul Cells Cancelled Bite Cells Cancelled Acanthocytes (Spur) Cancelled Rouleaux Cancelled Schistocytes Cancelled Activated Clotting Time 235 H 219 H Sodium Potassium Chloride Carbon Dioxide Anion Gap BUN Creatinine Estim Creat Clear Calc Est GFR (MDRD) Af Amer Est GFR (MDRD) Non-Af BUN/Creatinine Ratio Glucose Calcium Crossmatch 02/12/19 02/12/19 02/12/19 00:10 05:15 05:15 WBC 8.9 Corrected WBC RBC 2.82 L Hgb 8.8 L Hct 26.4 L MCV 93.6 MCH 31.2 MCHC 33.3 RDW 13.5 RDW Differential 46.2 H Plt Count 215 MPV 9.6 Immature Gran % (Auto) 0.200 Neut % (Auto) 76.3 H Lymph % (Auto) 10.6 L Edmunds % (Auto) 11.9 H Eos % (Auto) 0.8 Baso % (Auto) 0.2 Immature Gran # (Auto) Absolute Neuts (auto) 6.8 Absolute Lymphs (auto) 0.95 Absolute Monos (auto) Total Counted Not Reportable Neutrophils % (Manual) Band Neutrophils % Lymphocytes % (Manual) Monocytes % (Manual) Eosinophils % (Manual) Basophils % (Manual) Metamyelocytes % Myelocytes % Promyelocytes % Blast Cells % Plasma Cell % (Manual) Other Cells % Lymphocytes # Nucleated RBCs/100 WBC Differential Comment Diff Path Review Hypersegmented Neuts Atypical Lymphocytes Reactive Lymphocytes Smudge Cells Eosinophilia # Basophilia # Toxic Granulation Dohle Bodies Ethan Rods Platelet Estimate Plt Morphology Comment RBC Morphology Polychromasia Hypochromasia Poikilocytosis Basophilic Stippling Anisocytosis Microcytosis Macrocytosis Spherocytes Sickle Cells Target Cells Tear Drop Cells Ovalocytes Stomatocytes Fan-Pierre Part Bodies Raoul Cells Bite Cells Acanthocytes (Spur) Rouleaux Schistocytes Activated Clotting Time Sodium Cancelled 142 Potassium Cancelled 3.8 Chloride Cancelled 109 H Carbon Dioxide Cancelled 28.0 Anion Gap Cancelled 5 BUN Cancelled 11 Creatinine Cancelled 0.43 L Estim Creat Clear Calc Cancelled 45.85 Est GFR (MDRD) Af Amer Cancelled 188 Est GFR (MDRD) Non-Af Cancelled 156 BUN/Creatinine Ratio Cancelled 25.8 H Glucose Cancelled 142 H Calcium Cancelled 7.5 L Crossmatch Discharge Diet: - - npo Home Medications: Medications to take at Discharge Amlodipine Besylate [Norvasc] 10 mg PO DAILY 06/16/18 Hydrochlorothiazide [Hctz] 12.5 mg PO DAILY 06/16/18 Losartan Potassium [Cozaar] 100 mg PO DAILY 06/16/18 Naproxen 500 mg PO QHS 09/08/18 Rosuvastatin Calcium 5 mg PO QHS 09/08/18 acetaminophen 500 mg tablet 500 mg PO Q6H PRN 01/20/19 docusate sodium 100 mg capsule 100 mg PO DAILY 01/20/19 oxycodone 5 mg tablet 5 mg PO Q4H PRN tab 01/20/19 polyethylene glycol 3350 17 gram oral powder packet 17 g PO DAILY 01/20/19 Aspirin 325 mg PO DAILY@0800 tablet 02/11/19 Atorvastatin Calcium 10 mg PO QHS 02/11/19 Ammonium Lactate [Amlactin] 1 applicatio TOPICAL DAILY 02/12/19 Amoxicillin/Potassium Clav [Amox Tr-K Clv 875-125 mg Tab] 1 each PO BID 02/12/19 Clopidogrel Bisulfate [Plavix] 75 mg PO DAILY 02/12/19 Doxycycline 100 mg PO BID 02/12/19 Metformin HCl 500 mg PO BID 02/12/19 Primary Care Physician: Cabrera Taylor III, MD [Primary Care Provider] - Medical Necessity - Tobacco Use Smoking Status: Current every day smoker Meaningful Use Info Meaningful Use Diagnoses (Choose all that apply): None applicable
[2019-02-12] MEDS: fentaNYL 100 MCG/2 ML Ampul 25 MCG IV (11:15)
--- NOTE | 2019-02-12 11:25 | NURSING ---
1115 report called to [facility] nurse, patient going to [facility] [id number]
== END 2019-02-12 11:45 | disposition short-term general hospital (02) | DRG 272 ==
LOC: ED 13:13 → SDC 14:33 → PCU 19:20 → ICU 02-14 12:21 → PCU 02-14 12:21 → SDC 02-14 12:21
PROVIDERS: Admitting Provider Surgery; Emergency Provider Emergency Medicine; Family Provider Family Medicine; PCP Family Medicine; Referring Provider Surgery; Visit Provider Surgery
PROC: 047K3ZZ Dilation of Right Femoral Artery, Percutaneous Approach (ICD-10-PCS; principal; 2019-02-11 16:30)
DX: I99.8 Other disorder of circulatory system (principal); I74.3 Embolism and thrombosis of arteries of the lower extremities; I70.203 Unspecified atherosclerosis of native arteries of extremities, bilateral legs; I10 Essential (primary) hypertension; E78.5 Hyperlipidemia, unspecified; F17.200 Nicotine dependence, unspecified, uncomplicated; E66.9 Obesity, unspecified; Z68.33 Body mass index [BMI] 33.0-33.9, adult; Z91.19 Patient's noncompliance with other medical treatment and regimen; Z79.82 Long term (current) use of aspirin; Z79.02 Long term (current) use of antithrombotics/antiplatelets; Z79.84 Long term (current) use of oral hypoglycemic drugs; Z79.899 Other long term (current) drug therapy; Z86.73 Personal history of transient ischemic attack (TIA), and cerebral infarction without residual deficits
CPT/HCPCS: 36200; 36245; 37184; 37224; 75625; 75710; 76937; 80048; 85025; 85347; 86920; 88304; 88311; 93926; 94640; 94667; 99152; 99153; 99285; 99406; C1760; J7030; Q9967; A4216; C1725; C1769; C1884; C1887; C1894

== ENCOUNTER 2019-03-09 11:45 | Outpatient (RCR) | payer MEDICARE, MEDICAID, SELFPAY ==
[2019-02-12 01:05] VITALS: BP 144/86; PULSE 121; RESP 22; TEMP 36.6; O2SAT 85; BMI 28.6
[2019-03-02 10:09] VITALS: BMI 28.6
--- NOTE | 2019-03-02 12:40 | PCM.WC.PN ---
(1) Chronic ulcer of left heel with fat layer exposed Status: Chronic Current Visit: Yes Code(s): L97.422 - Non-pressure chronic ulcer of left heel and midfoot with fat layer exposed (2) Ulcer of right lower leg Status: Chronic Current Visit: Yes Code(s): L97.919 - Non-pressure chronic ulcer of unspecified part of right lower leg with unspecified severity (3) Ulcer of right groin with fat layer exposed Status: Chronic Current Visit: Yes Code(s): L98.492 - Non-pressure chronic ulcer of skin of other sites with fat layer exposed (4) PAD (peripheral artery disease) Status: Chronic Current Visit: Yes Code(s): I73.9 - Peripheral vascular disease, unspecified (5) Tobacco abuse Status: Chronic Current Visit: Yes Code(s): Z72.0 - Tobacco use Type of Wound Date of Service: 03/02/19 Chief Complaint: Nonhealing left heel ulcer. History of Wound: Ms. Mcdaniel is a 68 with past medical history of peripheral arterial disease and type 2 diabetes mellitus who presented to the wound center due to nonhealing left foot ulcer. Initially noted on 11 September, Ulcer has progressively worsened despite being managed at her nursing facility with santyl. Her daughter also states that she had been on antibiotics twice over the last couple of months. However, they have continued to note increased drainage and foul smell from the ulcer. She states that her blood sugars have been well controlled. She denies chills, fever or otherwise feeling unwell. Progress of Wound: Patient is now at [facility]. Wound VAC to right lateral lower leg. Right groin incision opened. Left heel ulcer improving. - Physical Exam Vital Signs Temp Pulse Resp BP Pulse Ox 97.8 F 121 H 22 H 144/86 H 85 02/12/19 01:05 02/12/19 01:05 02/12/19 01:05 02/12/19 01:05 02/12/19 01:05 General: Alert, Oriented x3, Cooperative HEENT: Atraumatic Oral: Moist Mucosa Lungs: Normal air movement Cardiovascular: Regular rate Extremities: Capillary Refill Less than 3 Seconds, Edema - +1, Peripheral Pulses Normal, Tenderness Skin: Ulcer/ Wound - Left heel ulcer, right lateral lower leg ulcer and right groin with stables that has dehised. Right medial leg incision with stables intact. Wound Measurements and Assessment WC - Nurse 1 - General Ulcer Measurement Start: 03/02/19 10:06 Freq: Status: Active Protocol: Activity Type Activity Date Activity User E-Sign Co-Sign Detail Recorded Client Recorded Date Recorded By Document 03/02/19 10:09 [id number] 03/02/19 10:38 03/02/19 10:09 Wound Center Nurse 1 [Ulcer Assessment] #3 right groin post-op -Combined with other wound No -Current Size (cm) - Length 11 -Current Size (cm) - Width 1 -Current Size (cm) - Depth 0.2 -Total Square Cm 11 -Date of Last Picture (Recall this 03/02/19 field) -Photo Taken Yes -Epithelialization None Present -Tunneling No -Undermining/Tunneling No -Circular Undermining No -Exudate Amt Medium -Exudate Type Yellow/Green -Wound Margin Distinct, Outline Attached -Granulation Amt Medium (34-66%) -Granulation Quality Ethete -Slough/Fibrin Yes -Necrosis Amt None Present (0 %) -Necrotic Tissue Type Adherent Slough -Structure Exposed None/Limited to Skin Breakdown -Texture (Rachana-wound Skin Appearance) No Abnormality, Assessed -Moisture (Rachana-wound Skin Appearance No Abnormality, ) Assessed -Color (Rachana-wound Skin Appearance) No Abnormality, Assessed -Temperature (Rachana-wound Skin No Abnormality Appearance) (Pt Warm) -Tenderness on Palpation (Rachana-wound Yes Skin Appearance) -Ulcer Cleansing Rinsed/ Irrigated with Saline -Foul Odor after Cleansing No -Anesthetic Used 5% Lidocaine Gel #2 Right LE lateral post-op -Combined with other wound No -Current Size (cm) - Length 11 -Current Size (cm) - Width 3.5 -Current Size (cm) - Depth 0.4 -Total Square Cm 38.5 -Date of Last Picture (Recall this 03/02/19 field) -Photo Taken Yes -Epithelialization None Present -Tunneling No -Undermining/Tunneling No -Circular Undermining No -Exudate Amt Large -Exudate Type Serous -Wound Margin Distinct, Outline Attached -Granulation Amt Large (67-100%) -Granulation Quality Red -Slough/Fibrin Yes -Necrosis Amt None Present (0 %) -Necrotic Tissue Type Adherent Slough -Structure Exposed None/Limited to Skin Breakdown -Texture (Rachana-wound Skin Appearance) No Abnormality, Assessed -Moisture (Rachana-wound Skin Appearance Maceration ) -Color (Rachana-wound Skin Appearance) No Abnormality, Assessed -Temperature (Rachana-wound Skin No Abnormality Appearance) (Pt Warm) -Tenderness on Palpation (Rachana-wound Yes Skin Appearance) -Ulcer Cleansing Wound Cleanser -Foul Odor after Cleansing No -Anesthetic Used 5% Lidocaine Gel #1 Left Posterior Heel -Combined with other wound No -Current Size (cm) - Length 0.7 -Current Size (cm) - Width 0.3 -Current Size (cm) - Depth 0.2 -Total Square Cm 0.21 -Photo Taken No -Epithelialization None Present -Tunneling No -Undermining/Tunneling No -Circular Undermining No -Granulation Amt None Present (0 %) -Granulation Quality N/A -Necrosis Amt None Present (0 %) -Necrotic Tissue Type Adherent Slough -Structure Exposed None/Limited to Skin Breakdown -Texture (Rachana-wound Skin Appearance) Callus -Moisture (Rachana-wound Skin Appearance No Abnormality, ) Assessed -Color (Rachana-wound Skin Appearance) No Abnormality, Assessed -Temperature (Rachana-wound Skin No Abnormality Appearance) (Pt Warm) -Tenderness on Palpation (Rachana-wound Yes Skin Appearance) -Ulcer Cleansing Rinsed/ Irrigated with Saline -Anesthetic Used 5% Lidocaine Gel [Edema Assessment] -Lower Limb Edema Present NA - Nurse 2 - General Ulcer CM Notes Start: 03/02/19 10:06 Freq: Status: Active Protocol: Activity Type Activity Date Activity User E-Sign Co-Sign Detail Recorded Client Recorded Date Recorded By Document 03/02/19 11:05 [id number] 03/02/19 11:23 03/02/19 11:05 Wound Center Nurse 2 [Procedure/Treatment] #3 right groin post-op -Time 11:12 -Correct Patient Yes -Correct Side, Site, Position Yes -Correct Procedure Yes -Procedure Performed Yes -Type of Procedure Debridement -Clinical Debridement Subcutaneous -Post Debridement Size (cm) - Length 1.0 -Post Debridement Size (cm) - Width 0.4 -Post Debridement Size (cm) - Depth 0.6 -Total Square Cm 0.40 -Wound/Ulcer Outcome Not Healed -Ulcer Cleansing Rinsed/ Irrigated with Saline -Foul Odor after Cleansing No -Bioengineered Tissue No -Bleeding Controlled with Pressure -Offloading No -Treatment Response Procedure Tolerated Well #2 Right LE lateral post-op -Time 11:05 -Correct Patient Yes -Correct Side, Site, Position Yes -Correct Procedure Yes -Procedure Performed Yes -Type of Procedure Debridement -Clinical Debridement Subcutaneous -Post Debridement Size (cm) - Length 11.2 -Post Debridement Size (cm) - Width 3 -Post Debridement Size (cm) - Depth 0.5 -Total Square Cm 33.6 -Wound/Ulcer Outcome Not Healed -Ulcer Cleansing Rinsed/ Irrigated with Saline -Foul Odor after Cleansing No -Bioengineered Tissue No -Bleeding Controlled with Pressure -Offloading No -Treatment Response Procedure Tolerated Well #1 Left Posterior Heel -Time 11:20 -Correct Patient Yes -Correct Side, Site, Position Yes -Correct Procedure Yes -Procedure Performed Yes -Type of Procedure Debridement -Clinical Debridement Subcutaneous -Post Debridement Size (cm) - Length 9.5 -Post Debridement Size (cm) - Width 1.4 -Post Debridement Size (cm) - Depth 2.5 -Total Square Cm 13.30 -Wound/Ulcer Outcome Not Healed -Ulcer Cleansing Rinsed/ Irrigated with Saline -Foul Odor after Cleansing No -Bioengineered Tissue No -Bleeding Controlled with Pressure -Offloading No -Treatment Response Procedure Tolerated Well [See Physician Procedure note for Specifics] Pain Scale: 0-10 Numeric [Pain] -Is Patient Pain Free? Yes Musculoskeletal: Tenderness Neurological: Neuro grossly intact Psych/Mental Status: Normal Affect Debridement Note Post-Debridement Measurements/Treatment WC - Nurse 2 - General Ulcer CM Notes Start: 03/02/19 10:06 Freq: Status: Active Protocol: Activity Type Activity Date Activity User E-Sign Co-Sign Detail Recorded Client Recorded Date Recorded By Document 03/02/19 11:05 JULIO C [id number] 03/02/19 11:23 JULIO C 03/02/19 11:05 Wound Center Nurse 2 #3 right groin post-op -Time 11:12 -Correct Patient Yes -Correct Side, Site, Position Yes -Correct Procedure Yes -Procedure Performed Yes -Type of Procedure Debridement -Clinical Debridement Subcutaneous -Post Debridement Size (cm) - Length 1.0 -Post Debridement Size (cm) - Width 0.4 -Post Debridement Size (cm) - Depth 0.6 -Total Square Cm 0.40 -Wound/Ulcer Outcome Not Healed -Ulcer Cleansing Rinsed/ Irrigated with Saline -Foul Odor after Cleansing No -Bioengineered Tissue No -Bleeding Controlled with Pressure -Offloading No -Treatment Response Procedure Tolerated Well #2 Right LE lateral post-op -Time 11:05 -Correct Patient Yes -Correct Side, Site, Position Yes -Correct Procedure Yes -Procedure Performed Yes -Type of Procedure Debridement -Clinical Debridement Subcutaneous -Post Debridement Size (cm) - Length 11.2 -Post Debridement Size (cm) - Width 3 -Post Debridement Size (cm) - Depth 0.5 -Total Square Cm 33.6 -Wound/Ulcer Outcome Not Healed -Ulcer Cleansing Rinsed/ Irrigated with Saline -Foul Odor after Cleansing No -Bioengineered Tissue No -Bleeding Controlled with Pressure -Offloading No -Treatment Response Procedure Tolerated Well #1 Left Posterior Heel -Time 11:20 -Correct Patient Yes -Correct Side, Site, Position Yes -Correct Procedure Yes -Procedure Performed Yes -Type of Procedure Debridement -Clinical Debridement Subcutaneous -Post Debridement Size (cm) - Length 9.5 -Post Debridement Size (cm) - Width 1.4 -Post Debridement Size (cm) - Depth 2.5 -Total Square Cm 13.30 -Wound/Ulcer Outcome Not Healed -Ulcer Cleansing Rinsed/ Irrigated with Saline -Foul Odor after Cleansing No -Bioengineered Tissue No -Bleeding Controlled with Pressure -Offloading No -Treatment Response Procedure Tolerated Well Pain Scale: 0-10 Numeric Is Patient Pain Free? Yes Wound debrided: Right lateral lower leg Laterality: Right Type of Debridement: Excisional debridement Anesthesia Used: 4% Lidocaine Solution Depth: Down to and including healthy tissue, in the subcutaneous layer Percentage of wound debrided: 100 Instrument Used: 7mm curette Tissue Removed: Subcutaneous tissue and slough Severity: Fat Layer Exposed Amount of bleeding with debridement: Moderate Bleeding Controlled with: Pressure, Compression and gauze Patient tolerated procedure well - Additional Wound Wound debrided: Left heel ulcer Laterality: Left Type of Debridement: Excisional debridement Anesthesia Used: 4% Lidocaine Solution Depth: Down to and including healthy tissue Percentage of wound debrided: 100 Instrument Used: 3mm curette Tissue Removed: Subcutaneous tissue and slough Severity: Fat Layer Exposed Amount of bleeding with debridement: Mild Bleeding Controlled with: Pressure Patient tolerated procedure: Patient tolerated procedure well Assessment/Plan Active Problems (Last Reviewed 01/20/19 @ 10:08 by Katie Torres) Ulcer of right lower leg (Chronic) Ulcer of right groin with fat layer exposed (Chronic) Chronic ulcer of left heel with fat layer exposed (Chronic) PAD (peripheral artery disease) (Chronic) Tobacco abuse (Chronic) Assessment: Nonhealing left heel decubitus ulcer stage IV. Probes to bone. Type 2 diabetes mellitus. Peripheral vascular disease. Exposed bone with concern for osteomyelitis. Plan: Debridement done as documented above, procedure was well-tolerated. Left heel is showing improvement. Continue Promagram to the left heel and wearing the off loading shoe. She has a wound VAC to the left lateral lower leg. Right groin incision with stables present. The center of the incision has dehissed and there is fat necrosis on the medial aspect of the incision. Due to the stables hanging onto the edges where the incision has opened and on the medial aspect where there is fat necrosis, I removed the sutures. A wound culture was also obtained from this area due to the strong odor coming from it. Depending on the wound culture results will depend if antibiotic therapy will be necessary. No debridement was performed today due to how sensitive the area was for the patient. [facility] is staying in [facility]. Will have Aquacel Silver placed into right groin opening daily. Will have patient wear a single layer tubigrip bilaterally. Encouraged protein supplementation. Encouraged trying Jeuven due to the patient having issues tolerating other sources of extra protein such as ensure. She is to follow up in one week with Dr. Avendaño. She has an appointment at the end of the month with the vascular surgeon from [facility]. Code Visit [id number]: 61881 Gypsy subq tissue 20 sq cm/< Add On Codes: 66095 Gypsy subq tissue add-on
--- NOTE | 2019-03-08 12:12 | WC ---
Wound Orders for Jessica Mcdaniel: 1. Clean all ulcers with a mild soap and cleanse with water. May irrigate afterwards with Saline. Make sure mirlande-wound is clean and dried. 2. Place Aquacel-Ag to RIGHT groin ulcer and cover with dry gauze/ABD pad. Tape in place and change DAILY. 3. Promogran moistened with saline to LEFT heel ulcer. Cover with gauze and gauze roll. Change DAILY. 4. Apply wound VAC to RIGHT lateral leg ulcer. Settings 150mmHg continuous suction. Change 3x/week. 5. Apply Tubigrip single layer to RIGHT and LEFT leg. Apply kindergarten prep teacher, wear all day and then remove at bedtime. If soiled, they can be hand washed at the bathroom sink and dry over night. Reapply in the morning. 6. If patient is sitting reading or watching TV, please elevate legs to level of heart or above for 30 minutes, 3x/day. 7. Patient to wear Multipodus splint in bed with kick-stand outward to LEFT foot. 8. Romie 2x/day if possible. 9. Stop Calmoseptine to RIGHT groin ulcer, blanca were removed to RIGHT groin on 03/02/19. 10. Wound cultures obtained on 03/02/19 to RIGHT groin. Any Questions, please call the nurse's line at the [facility]: [phone].
[2019-03-09 12:42] VITALS: BMI 28.6
--- NOTE | 2019-03-09 20:18 | PCM.WC.PN ---
(1) Postoperative wound dehiscence Status: Acute Current Visit: Yes Qualifiers: Encounter type: subsequent encounter Qualified Code(s): T81.31XD - Disruption of external operation (surgical) wound, not elsewhere classified, subsequent encounter Code(s): T81.31XA - Disruption of external operation (surgical) wound, not elsewhere classified, initial encounter Comment: Right groin (2) Wound of right lower extremity Status: Chronic Current Visit: Yes Qualifiers: Encounter type: subsequent encounter Qualified Code(s): S81.801D - Unspecified open wound, right lower leg, subsequent encounter Code(s): S81.801A - Unspecified open wound, right lower leg, initial encounter Comment: Right lower extremity with fat layer exposed (3) Chronic ulcer of left heel with fat layer exposed Status: Chronic Current Visit: Yes Code(s): L97.422 - Non-pressure chronic ulcer of left heel and midfoot with fat layer exposed (4) PAD (peripheral artery disease) Status: Chronic Current Visit: Yes Code(s): I73.9 - Peripheral vascular disease, unspecified Type of Wound Date of Service: 03/09/19 Chief Complaint: Nonhealing left heel ulcer. History of Wound: Ms. Mcdaniel is a 68 with past medical history of peripheral arterial disease and type 2 diabetes mellitus who presented to the wound center due to nonhealing left foot ulcer. Initially noted on 11 September, Ulcer has progressively worsened despite being managed at her nursing facility with char. Her daughter also states that she had been on antibiotics twice over the last couple of months. However, they have continued to note increased drainage and foul smell from the ulcer. She states that her blood sugars have been well controlled. She denies chills, fever or otherwise feeling unwell. Progress of Wound: No new concerns at this time. Left heel ulcer essentially healed. Worsening wound dehiscence of right groin. Right lower extremity postsurgical wound is improving. - Physical Exam Vital Signs Temp Pulse Resp BP Pulse Ox 97.8 F 121 H 22 H 144/86 H 85 02/12/19 01:05 02/12/19 01:05 02/12/19 01:05 02/12/19 01:05 02/12/19 01:05 General: Alert, Oriented x3, Cooperative, No apparent distress HEENT: Atraumatic, Normocephalic Oral: Moist Mucosa Neck: Supple Abdomen: Non Tender, Obese Extremities: No cyanosis Skin: Ulcer/ Wound Wound Measurements and Assessment WC - Nurse 1 - General Ulcer Measurement Start: 03/02/19 10:06 Freq: Status: Active Protocol: Activity Type Activity Date Activity User E-Sign Co-Sign Detail Recorded Client Recorded Date Recorded By Document 03/09/19 12:42 DV [id number] 03/09/19 13:11 DV 03/09/19 12:42 Wound Center Nurse 1 [Ulcer Assessment] #3 RIGHT GROIN -POST OP -Combined with other wound No -Current Size (cm) - Length 10.5 -Current Size (cm) - Width 2.0 -Current Size (cm) - Depth 2.5 -Total Square Cm 21.00 -Photo Taken No -Epithelialization None Present -Tunneling No -Undermining/Tunneling No -Circular Undermining No -Exudate Amt Large -Exudate Type Serosanguineous -Wound Margin Indistinct, Non -Visible -Granulation Amt Medium (34-66%) -Granulation Quality Red -Slough/Fibrin Yes -Necrosis Amt Large (67-100%) -Necrotic Tissue Type Adherent Slough -Texture (Rachana-wound Skin Appearance) Assessed, Scarring,Rash -Moisture (Rachana-wound Skin Appearance Assessed, ) Weeping -Color (Rachana-wound Skin Appearance) Assessed, Erythema -Temperature (Rachana-wound Skin No Abnormality Appearance) (Pt Warm) -Tenderness on Palpation (Rachana-wound Yes Skin Appearance) -Foul Odor after Cleansing Yes -Anesthetic Used 4% Lidocaine Solution #2 LATERAL RLE- POST OP -Combined with other wound No -Current Size (cm) - Length 11.0 -Current Size (cm) - Width 3.7 -Current Size (cm) - Depth 0.5 -Total Square Cm 40.70 -Photo Taken No -Epithelialization None Present -Tunneling No -Undermining/Tunneling No -Exudate Amt Large -Exudate Type Serosanguineous -Wound Margin Indistinct, Non -Visible -Granulation Amt Medium (34-66%) -Granulation Quality Red -Necrosis Amt None Present (0 %) -Necrotic Tissue Type Adherent Slough -Structure Exposed Fascia,Muscle, Fat Layer Exposed,None/ Limited to Skin Breakdown -Texture (Rachana-wound Skin Appearance) No Abnormality, Assessed -Color (Rachana-wound Skin Appearance) No Abnormality -Temperature (Rachana-wound Skin No Abnormality Appearance) (Pt Warm) -Tenderness on Palpation (Rachana-wound Yes Skin Appearance) -Anesthetic Used 4% Lidocaine Solution #1 Left Posterior Heel -Combined with other wound No -Current Size (cm) - Length 1.5 -Current Size (cm) - Width 1.2 -Current Size (cm) - Depth 0.2 -Total Square Cm 1.80 -Photo Taken No -Epithelialization Small 1-33% -Tunneling No -Undermining/Tunneling No -Circular Undermining No -Exudate Amt None Present -Wound Margin Indistinct, Non -Visible -Granulation Amt None Present (0 %) -Granulation Quality N/A -Slough/Fibrin Yes -Necrosis Amt Large (67-100%) -Necrotic Tissue Type Eschar -Structure Exposed None/Limited to Skin Breakdown -Texture (Rachana-wound Skin Appearance) Assessed, Scarring -Moisture (Rachana-wound Skin Appearance Assessed,Dry/ ) Scaly -Color (Rachana-wound Skin Appearance) Assessed, Erythema -Temperature (Rachana-wound Skin No Abnormality Appearance) (Pt Warm) -Tenderness on Palpation (Rachana-wound No Skin Appearance) -Foul Odor after Cleansing No -Anesthetic Used 5% Lidocaine Gel WC - Nurse 2 - General Ulcer CM Notes Start: 03/02/19 10:06 Freq: Status: Active Protocol: Activity Type Activity Date Activity User E-Sign Co-Sign Detail Recorded Client Recorded Date Recorded By Document 03/09/19 13:18 MW [id number] 03/09/19 13:40 MW 03/09/19 13:18 Wound Center Nurse 2 [Procedure/Treatment] #3 RIGHT GROIN -POST OP -Time 13:18 -Correct Patient Yes -Correct Side, Site, Position Yes -Correct Procedure Yes -Procedure Performed Yes -Type of Procedure Debridement -Clinical Debridement Subcutaneous -Post Debridement Size (cm) - Length 12.0 -Post Debridement Size (cm) - Width 2.5 -Post Debridement Size (cm) - Depth 3.0 -Total Square Cm 30.00 -Wound/Ulcer Outcome Not Healed -Ulcer Cleansing Rinsed/ Irrigated with Saline -Foul Odor after Cleansing No -Bioengineered Tissue No -Bleeding Controlled with Pressure -Offloading No -Treatment Response Procedure Tolerated Well #2 LATERAL RLE- POST OP -Time 13:18 -Correct Patient Yes -Correct Side, Site, Position Yes -Correct Procedure Yes -Procedure Performed Yes -Type of Procedure Debridement -Clinical Debridement Subcutaneous -Post Debridement Size (cm) - Length 11.0 -Post Debridement Size (cm) - Width 3.5 -Post Debridement Size (cm) - Depth 0.4 -Total Square Cm 38.50 -Wound/Ulcer Outcome Not Healed -Ulcer Cleansing Rinsed/ Irrigated with Saline -Foul Odor after Cleansing No -Bioengineered Tissue No -Bleeding Controlled with Pressure -Offloading No -Treatment Response Procedure Tolerated Well #1 Left Posterior Heel -Time 13:18 -Correct Patient Yes -Correct Side, Site, Position Yes -Correct Procedure Yes -Procedure Performed Yes -Type of Procedure Debridement -Clinical Debridement Subcutaneous -Post Debridement Size (cm) - Length 0.1 -Post Debridement Size (cm) - Width 0.1 -Post Debridement Size (cm) - Depth 0.1 -Total Square Cm 0.01 -Wound/Ulcer Outcome Not Healed -Ulcer Cleansing Rinsed/ Irrigated with Saline -Foul Odor after Cleansing No -Bioengineered Tissue No -Bleeding Controlled with Pressure -Offloading No -Treatment Response Procedure Tolerated Well [See Physician Procedure note for Specifics] Pain Scale: 0-10 Numeric [Pain] -Is Patient Pain Free? Yes Musculoskeletal: No Muscle Wasting Neurological: Cranial nerves II-XII grossly intact Psych/Mental Status: Normal Affect Debridement Note Post-Debridement Measurements/Treatment WC - Nurse 2 - General Ulcer CM Notes Start: 03/02/19 10:06 Freq: Status: Active Protocol: Activity Type Activity Date Activity User E-Sign Co-Sign Detail Recorded Client Recorded Date Recorded By Document 03/02/19 11:05 [id number] 03/02/19 11:23 Document 03/09/19 13:18 [id number] 03/09/19 13:40 03/02/19 03/09/19 11:05 13:18 Wound Center Nurse 2 #3 RIGHT GROIN -POST OP -Time 11:12 13:18 -Correct Patient Yes Yes -Correct Side, Site, Position Yes Yes -Correct Procedure Yes Yes -Procedure Performed Yes Yes -Type of Procedure Debridement Debridement -Clinical Debridement Subcutaneous Subcutaneous -Post Debridement Size (cm) - Length 1.0 12.0 -Post Debridement Size (cm) - Width 0.4 2.5 -Post Debridement Size (cm) - Depth 0.6 3.0 -Total Square Cm 0.40 30.00 -Wound/Ulcer Outcome Not Healed Not Healed -Ulcer Cleansing Rinsed/ Rinsed/ Irrigated with Irrigated with Saline Saline -Foul Odor after Cleansing No No -Bioengineered Tissue No No -Bleeding Controlled with Pressure Pressure -Offloading No No -Treatment Response Procedure Procedure Tolerated Well Tolerated Well #2 LATERAL RLE- POST OP -Time 11:05 13:18 -Correct Patient Yes Yes -Correct Side, Site, Position Yes Yes -Correct Procedure Yes Yes -Procedure Performed Yes Yes -Type of Procedure Debridement Debridement -Clinical Debridement Subcutaneous Subcutaneous -Post Debridement Size (cm) - Length 11.2 11.0 -Post Debridement Size (cm) - Width 3 3.5 -Post Debridement Size (cm) - Depth 0.5 0.4 -Total Square Cm 33.6 38.50 -Wound/Ulcer Outcome Not Healed Not Healed -Ulcer Cleansing Rinsed/ Rinsed/ Irrigated with Irrigated with Saline Saline -Foul Odor after Cleansing No No -Bioengineered Tissue No No -Bleeding Controlled with Pressure Pressure -Offloading No No -Treatment Response Procedure Procedure Tolerated Well Tolerated Well #1 Left Posterior Heel -Time 11:20 13:18 -Correct Patient Yes Yes -Correct Side, Site, Position Yes Yes -Correct Procedure Yes Yes -Procedure Performed Yes Yes -Type of Procedure Debridement Debridement -Clinical Debridement Subcutaneous Subcutaneous -Post Debridement Size (cm) - Length 9.5 0.1 -Post Debridement Size (cm) - Width 1.4 0.1 -Post Debridement Size (cm) - Depth 2.5 0.1 -Total Square Cm 13.30 0.01 -Wound/Ulcer Outcome Not Healed Not Healed -Ulcer Cleansing Rinsed/ Rinsed/ Irrigated with Irrigated with Saline Saline -Foul Odor after Cleansing No No -Bioengineered Tissue No No -Bleeding Controlled with Pressure Pressure -Offloading No No -Treatment Response Procedure Procedure Tolerated Well Tolerated Well Pain Scale: 0-10 Numeric Is Patient Pain Free? Yes Yes Wound debrided: Left heel Wound Grade/Stage: Stage III Type of Debridement: Selective debridement Anesthesia Used: 4% Lidocaine Solution Depth: Down to and including healthy tissue Percentage of wound debrided: 100 Instrument Used: 5mm curette Tissue Removed: Devitalized tissue Severity: Limited To Skin Breakdown Amount of bleeding with debridement: None Patient tolerated procedure well - Additional Wound Wound debrided: Right lower extremity (lateral) Wound Grade/Stage: Stage III Type of Debridement: Excisional debridement Anesthesia Used: 4% Lidocaine Solution Depth: Down to and including healthy tissue, in the subcutaneous layer Percentage of wound debrided: 100 Instrument Used: 5mm curette Tissue Removed: Slough and devitalized tissue Severity: Fat Layer Exposed Amount of bleeding with debridement: Mild Bleeding Controlled with: Pressure Patient tolerated procedure: Patient tolerated procedure well - Additional Wound Wound debrided: Right groin Wound Grade/Stage: Stage III Type of Debridement: Excisional debridement Anesthesia Used: 4% Lidocaine Solution Depth: Down to and including healthy tissue, in the subcutaneous layer Percentage of wound debrided: 100 Instrument Used: 5mm curette, #15 blade, Forceps Tissue Removed: Slough and devitalized tissue Severity: Fat Layer Exposed Amount of bleeding with debridement: Moderate Bleeding Controlled with: Pressure, Compression and gauze Patient tolerated procedure: Patient tolerated procedure well Assessment/Plan Active Problems (Last Reviewed 01/20/19 @ 10:08 by Katie Torers) Ulcer of right lower leg (Chronic) Ulcer of right groin with fat layer exposed (Chronic) Postoperative wound dehiscence (Acute) Right groin Wound of right lower extremity (Chronic) Right lower extremity with fat layer exposed Chronic ulcer of left heel with fat layer exposed (Chronic) PAD (peripheral artery disease) (Chronic) Tobacco abuse (Chronic) Assessment: Same as above. Plan: Debridement done as documented above, procedure was well-tolerated. Left heel ulcer is essentially healed. Right lateral lower extremity wound with improvement noted. Right groin wound dehiscence with significant slough and depth. Cultures reviewed, rare growth with rare white blood cell. Will hold off antibiotics for now. Wound VAC at 150 mmHg to right groin area and continue wound VAC to right lower extremity wound. Adaptic and gauze over left heel, change daily. Continue increased protein intake. Wound hygiene recommended. Antifungal powder to groin area however, advised to avoid powder to open wound. Patient with dermatitis intertrigo. All their questions were answered and they were advised to call with any further questions or concerns. Follow-up in 1 week. This note was generated with [employer] software. It may contain incorrect words, spelling, and punctuation that were not noted in checking the note before signing.
== END 2019-03-13 23:59 ==
LOC: WC 11:45
PROVIDERS: Family Provider Family Medicine; PCP Family Medicine; Referring Provider Internal Medicine; Visit Provider Internal Medicine
DX: E11.621 Type 2 diabetes mellitus with foot ulcer (principal); E11.51 Type 2 diabetes mellitus with diabetic peripheral angiopathy without gangrene; Z72.0 Tobacco use; L97.822 Non-pressure chronic ulcer of other part of left lower leg with fat layer exposed; L89.624 Pressure ulcer of left heel, stage 4; T81.31XA Disruption of external operation (surgical) wound, not elsewhere classified, initial encounter; Y83.9 Surgical procedure, unspecified as the cause of abnormal reaction of the patient, or of later complication, without mention of misadventure at the time of the procedure
CPT/HCPCS: 11042; 11045; 87070; 87075; 87076; 87077; 87186; 87205

== ENCOUNTER 2019-05-06 17:22 | Emergency (ER) | payer MEDICARE, MEDICAID, SELFPAY ==
[2019-05-06 17:24] VITALS: BP 189/80; PULSE 107; RESP 18; TEMP 37.1; O2SAT 93; BMI 31.4
--- NOTE | 2019-05-06 18:03 | US_ITS ---
STUDY: VENOUS DOPPLER ULTRASOUND - BILATERAL LOWER EXTREMITIES REASON FOR EXAM: Female, 69 years old. Pain and swelling TECHNIQUE: Ultrasound evaluation of the deep vein system to include tobar-scale imaging and compression was performed. Tobar-scale imaging and Doppler sonographic evaluation, including duplex spectral analysis and qualitative color flow sonography, was performed. COMPARISON: None. FINDINGS: RIGHT LEG Common Femoral Vein: Not well evaluated due to patient's wound. Common Femoral Vein/Greater Saphenous Junction: Not evaluation due to patient's wound. Superficial Femoral Proximal: Normal compression, spontaneity and augmentation. Normal color Doppler. Superficial Femoral Middle: Normal compression, spontaneity and augmentation. Normal color Doppler. Superficial Femoral Distal: Normal compression, spontaneity and augmentation. Normal color Doppler. Popliteal Vein: Normal compression, spontaneity and augmentation. Normal color Doppler. Posterior Tibial Vein: Normal compression, spontaneity and augmentation. Normal color Doppler. Peroneal Vein: Normal compression, spontaneity and augmentation. Normal color Doppler. The visualized soft tissues are unremarkable. LEFT LEG Common Femoral Vein: Normal compression, spontaneity and augmentation. Normal color Doppler. Common Femoral Vein/Greater Saphenous Junction: Normal compression, spontaneity and augmentation. Normal color Doppler. Deep Femoral Vein: Normal compression, spontaneity and augmentation. Normal color Doppler. Superficial Femoral Proximal: Normal compression, spontaneity and augmentation. Normal color Doppler. Superficial Femoral Middle: Normal compression, spontaneity and augmentation. Normal color Doppler. Superficial Femoral Distal: Normal compression, spontaneity and augmentation. Normal color Doppler. Popliteal Vein: Normal compression, spontaneity and augmentation. Normal color Doppler. Posterior Tibial Vein: Normal compression, spontaneity and augmentation. Normal color Doppler. Peroneal Vein: Normal compression, spontaneity and augmentation. Normal color Doppler. The visualized soft tissues are unremarkable. US/Venous Duplex Imag/Alexis Extrem IMPRESSION: Right common femoral vein not visualized due to patient's wound. No deep venous thrombosis identified in the visualized lower extremity veins. Electronically Signed: Chris Morrison, at 19:53 EDT Tel , Service support ,
[2019-05-06 19:00] VITALS: BP 150/77; PULSE 80; RESP 17; O2SAT 94
--- NOTE | 2019-05-06 19:44 | ED.DCSUM_ITS ---
- ER Visit Summary Date of Service: 05/06/19 Chief Complaint: Left foot and toes purple History of Present Illness: The patient is a [address] Cabrera Taylor and Dr. Akshat Taylor. She has a history of a right iliac stent by Dr. Tobias at the end of January. Following that she had an episode of lower extremity ischemia and was transferred to [facility] where she had surgery by Dr. Rosa. She reports that she has been doing well until today. She is concerned that the toes on her left foot are purple. She denies any pain or paresthesias. She reports that she has weakness in her legs bilaterally, but that this is unchanged. She also reports that her right foot has been swollen for appro ximately 1 month. Physical Examination: Vitals: Stable. Afebrile. General: Well-nourished and well-developed. Head: Normocephalic atraumatic. Neck: Supple, no lymphadenopathy. No JVD. Nontender. Cardiovascular: Regular rate and rhythm. No murmurs. Respiratory: No respiratory distress. Clear to auscultation bilaterally. Abdominal: Soft, nontender, nondistended, normal bowel sounds. No guarding, rebound, or peritoneal signs. Back: Nontender. Extremities: Right lower extremity: There is scar tissue in the inguinal fold. There is mild erythema here. There is no induration or fluctuance. No evidence of infection. She has a quarter sized ulcer on the medial side of her right calf and a dime sized ulcer on the lateral size. There is granulation tissue present. There is minimal surrounding erythema. There is no induration or fluctuance. She has a dopplerable dorsalis pedis pulse. She has 2+ pedal edema. Left leg: No pedal edema. Her toes are slightly more red than her right foot. There is no contusion or purpuric lesions. She has no tenderness palpation. She has 3 to 4-second capillary refill in her feet bilaterally. She has a dopplerable dorsalis pedis pulse on the left as well. She does have dependent rubor on the left. Neither foot is cold or pale. Skin: Normal color, no rash. Neurologic: Alert and oriented ?3. Cranial nerves II through XII are intact. Normal strength and sensation. Psych: Normal affect. Test Results: Bilateral lower extremity Dopplers are negative. Emergency Department Course and Treatment: Patient is resting comfortably. She continues denying pain. Treatment Plan: I had a prolonged discussion the patient that she certainly has peripheral vascular disease. At this time she does not want to have any further testing including labs or CT undertaken. She would like to go home. However, I discussed her that if her foot becomes painful or pale or cold that she needs to return to the emergency department for further evaluation and treatment. Otherwise follow-up Dr. Cabrera Taylor in 2 days for a repeat exam. Disposition: To home in improved and stable condition. Impression: 1. Peripheral vascular disease. 2. Peripheral edema on the right. 3. Superficial ulcers right leg. This note was generated with [employer] dictation software. It may contain incorrect words, spelling, and punctuation that were not noted in review of the chart prior to signing ED Disposition - Plan for ED Patient: Disposition: Home or Assisted Living Instructions: Peripheral Vascular Disease Referrals: Cabrera Taylor III, MD [Primary Care Provider] - 3-5 Days Akshat Taylor MD [STAFF PHYSICIAN] -
--- NOTE | 2019-05-06 19:49 | ED.RN ---
FAMILY HAS CONCERNS ABOUT THE PT'S PULSES IN HER FEET AND DISCHARGE PLANNING. JAZZ HUGHES MADE AWARE, NO FURTHER ORDERS AT THIS TIME.
[2019-05-06 20:29] VITALS: BP 150/77; PULSE 80; RESP 18; O2SAT 96
== END 2019-05-06 20:29 | disposition home or self-care (01) ==
PROVIDERS: Emergency Provider Emergency Medicine; Family Provider Family Medicine; PCP Family Medicine
DX: I73.9 Peripheral vascular disease, unspecified (principal); E11.622 Type 2 diabetes mellitus with other skin ulcer; L97.219 Non-pressure chronic ulcer of right calf with unspecified severity; L97.819 Non-pressure chronic ulcer of other part of right lower leg with unspecified severity; R60.0 Localized edema; I10 Essential (primary) hypertension; Z79.02 Long term (current) use of antithrombotics/antiplatelets; Z79.84 Long term (current) use of oral hypoglycemic drugs; Z79.899 Other long term (current) drug therapy; Z72.0 Tobacco use
CPT/HCPCS: 93970; 99284

== ENCOUNTER 2019-12-04 13:37 | Inpatient (IN) | payer MEDICARE, SELFPAY ==
[2019-12-04] VITALS (7 sets, daily range): BP systolic 105–159; BP diastolic 63–113; PULSE 91–108; RESP 15–24; TEMP 36.8–37; O2SAT 92–97; BMI 28.5; BMI 28.6
--- NOTE | 2019-12-04 13:57 | RAD_ITS ---
STUDY: X-RAY CHEST REASON FOR EXAM: Female, 69 years old. COUGH,DYSPNEA TECHNIQUE: AP COMPARISON: 09/08/2018 FINDINGS: Patient is rotated. The lungs are clear and expanded. There is no demonstrated pleural abnormality. There is borderline cardiomegaly. There are calcified mediastinal lymph nodes. Normal visualized pulmonary arteries. There is atherosclerotic calcification of the aortic arch with tortuosity. There is diffuse osteopenia. There is no demonstrated abnormality of the visualized soft tissue structures of the upper abdomen. RAD/Chest 1 View (Portable) IMPRESSION: No airspace consolidation or pleural effusion. Electronically Signed: Rudi Correia MD ([place]) at 15:44 EDT , Service support ,
--- NOTE | 2019-12-04 13:58 | EKG12_ITS ---
Test Reason : SOB Blood Pressure : / mmHG Vent. Rate : 099 BPM Atrial Rate : 099 BPM P-R Int : 168 ms QRS Dur : 090 ms QT Int : 386 ms P-R-T Axes : 106 056 059 degrees QTc Int : 495 ms Normal sinus rhythm Nonspecific ST and T wave abnormality Abnormal ECG Confirmed by RICKI SAUCEDO, TOÑITO ([id number]), scientific editor ROCKY ANGELA ([id number]) on 12/06/2019 8:33:14 AM Referred By: Confirmed By:TOÑITO ROBISON MD
--- NOTE | 2019-12-04 13:59 | RAD_ITS ---
STUDY: X-RAY - LUMBAR SPINE REASON FOR EXAM: Female, 69 years old. FALL TECHNIQUE: 3 view(s) of the lumbar spine were obtained. COMPARISON: None FINDINGS: Normal lumbar lordosis. There is no substantial scoliosis. There is a normal alignment of the vertebrae. There is generalized demineralization of the vertebral bodies. There is multi-level degenerative disc disease with multi-level disc space narrowing. Compression deformities of L1 and L2 involving the superior endplate, indeterminate age. Neurostimulator device identified. Left common iliac artery stent is noted. There is atherosclerosis. Operative changes of proximal femur noted. RAD/Lumbar Spine 2 or 3 Views IMPRESSION: L1 and L2 compression fractures of indeterminate age. Recommend lumbar spine CT and possible bone scan for further characterization, if clinically indicated. Electronically Signed: Rudi Correia MD ([place]) at 15:44 EDT , Service support ,
--- NOTE | 2019-12-04 13:59 | RAD_ITS ---
STUDY: X-RAY - THORACIC SPINE REASON FOR EXAM: Female, 69 years old. FALL TECHNIQUE: 3 view(s) of the thoracic spine were obtained. COMPARISON: None. FINDINGS: Normal kyphosis of the thoracic spine. There is no substantial scoliosis. There is demineralization of the thoracic spine with endplate spondylosis. There is multilevel disc space narrowing of the thoracic spine. There are compression fractures involving lower thoracic and upper lumbar vertebral bodies, uncertain age. Calcified lymph nodes of the right hilum demonstrated. Residual chronic fracture deformity of proximal humerus noted. RAD/Thoracic Spine 3 Views IMPRESSION: 1. Lower thoracic and upper lumbar compression fractures of indeterminate age. Advise correlating with localized clinical palpation and MRI, if clinically warranted, for further characterization. Electronically Signed: Rudi Correia MD ([place]) at 15:43 EDT , Service support ,
[2019-12-04] MEDS: Ipratropium/Albuterol Sulfate 3 ML AMPUL.NEB INHALATION ×2 (14:13→19:20)
[2019-12-04 14:14] LABS: Absolute Lymphocyte Count 0.66 X10^3/uL (0.83-4.51); Basophil# 0.02 X10^3/uL; Basophil% 0.2 % (0-1); Hemoglobin 13.9 g/dL (12.0-15.0); Lymphocyte # 0.66 X10^3/ul (4.0); Lymphocyte % 6.4 % (19-41); Mean Corp Hgb Conc 34.8 g/dL (32-36); Mean Corpuscular Volume 89.1 fL (81-99); Monocyte# 0.57 X10^3/uL; Monocyte% 5.5 % (0-10); NRBC Flagged by Analyzer 0 % (0-5); Neutrophil # 8.99 X10^3/uL (2.7-7.7); Neutrophil % 87.4 % (47-70); Platelet Count 262 K/mm3 (150-450); RBC Distribution Width CV 12.8 % (11.6-14.6); RBC Distribution Width SD 41.8 fl (35.1-43.9); Red Blood Count 4.49 M/mm3 (4.2-5.4); White Blood Count 10.3 K/mm3 (4.4-11.0)
[2019-12-04] MEDS: fentaNYL 100 MCG/2 ML Ampul 50 MCG IV (14:26)
[2019-12-04] MEDS: Ondansetron 4 MG/2 ML Vial IV (14:27)
[2019-12-04 14:30] LABS: ALB/GLOB Ratio 0.9 RATIO (0.9-2.4); AST(SGOT) 12 U/L (15-37); Alanine Aminotransfer ALT/SGPT 13 U/L (13-56); Albumin, Serum 3.5 g/dL (3.2-5.0); Alkaline Phosphatase 78 U/L (45-117); Anion Gap 8 (5-15); BUN 16 mg/dL (7-18); BUN/Creat Ratio 23.5 RATIO (10-20); Calcium,Total 9.3 mg/dL (8.5-10.1); Chloride 92 mmol/L (98-107); Creatinine, Serum 0.68 mg/dL (0.55-1.02); EST Glomerular Filtration Rate 90 mL/min (>60); Est Glom Filt Rate - Afr Amer 109 mL/min (>60); Globulin 4.1 g/dL (2.2-4.2); Glucose 120 mg/dL (74-106); Lipase 47 U/L (73-393); Potassium 2.9 mmol/L (3.5-5.1); Protein, Total 7.6 g/dL (6.4-8.2); Sodium Level 131 mmol/L (136-145)
[2019-12-04] MEDS: Albuterol 2.5 MG/3 ML VIAL.NEB. INHALATION ×3 (14:51→14:52)
[2019-12-04 15:01] LABS: Mucous, Urine 0 SEEN /hpf (<or=2+); White Blood Cells 0 SEEN /hpf (0-5)
[2019-12-04 15:03] LABS: Color, Urine Yellow (Yellow); Glucose, Dipstick Normal (Normal); Ketone-Dipstick 50 mg/dl (Negative); Leukocyte Esterase-Dipstick Negative /ul (Negative); Nitrite-Dipstick Negative (Negative); Occult Blood-Urine 10 /ul (Negative); Protein-Dipstick 100 mg/dl (Negative); Urine Bilirubin Dipstick Negative (Negative); Urine Clarity Clear (Clear); Urine Urobilinogen Normal (Normal); Urine pH 6.5 (5.0 - 8.0)
[2019-12-04 15:09] LABS: Bacteria 1+ /hpf (None Seen); Red Blood Cells-Urine 0-5 SEEN /hpf (0-5); Squamous Epithelial Cells - UA 0-5 SEEN /hpf (5-10)
--- NOTE | 2019-12-04 15:38 | ED.DCSUM_ITS ---
- ER Visit Summary Date of Service: 12/04/19 Chief Complaint: Feeling ill History of Present Illness: The patient is a 69 F presenting due to not feeling well. She states this has been ongoing for the past 3 to 4 days. She states she fell while trying to use her walker 3 to 4 days ago. She denies hitting her head or losing consciousness. She complains of low back pain. States she has had low back pain since then. Over the past 1 to 2 days she is having nausea, vomiting. She has had shortness of breath and cough. She denies fever or chills. Denies diarrhea. Denies chest pain. She has been unable to keep her medications or fluids down. Denies sick contacts. Denies recent travel. Physical Examination: Vitals are stable. Patient is afebrile. Alert no acute distress. 96% on room air HEENT exam dry mucous membranes Neck is nontender Lungs are wheezing bilaterally. Heart is regular and tachycardic Abdomen is soft nontender nondistended. Back: Diffuse tenderness with no step-off Extremities are unremarkable. Skin is warm and dry. No focal neurologic deficit. Remainder of exam is unremarkable. Emergency Department Course and Treatment: EKG is sinus rate of 99 with no acute ischemic changes. CBC unremarkable. Chemistry shows sodium 131, potassium 2.9, glucose 120. Urinalysis unremarkable. Troponin is negative. Influenza, RSV negative. Patient was given fentanyl IV. She was given albuterol, Atrovent aerosol. She is given IV fluids. She is given potassium oral replacement. Thoracic spine x-ray shows lower thoracic and upper lumbar compression fractures of indeterminate age. Lumbar spine xray shows L1 and L2 compression fractures of indeterminate age. Recommend lumbar spine CT and possible bone scan for further characterization, if clinically indicated. Chest xray shows no airspace consolidation or pleural effusion. Patient has been unable to keep fluids down at home. She has been having difficulty caring for herself due to her back pain. Discussed with the hospitalist for admission. Disposition: Admission Impression: Indeterminate age compression fractures status post fall, functional decline This note was generated with [employer] dictation software. It may contain incorrect words, spelling, and punctuation that were not noted in review of the chart prior to signing ED Disposition - Plan for ED Patient: Referrals: Cabrera Taylor III, MD [Primary Care Provider] -
--- NOTE | 2019-12-04 16:28 | HP.PCM_ITS ---
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 On the patient had a mechanical fall, lost balance and felt into a sitting position. She developed severe lower back pain and has been unable to walk. After this she started to have nausea and vomiting. She has been unable to eat or drink much, and has not been taking her medications. She has no diarrhea, some constipation from pain meds recently started. This AM she was more SOB and wheezy prompting her daughter to call her PCP, Cabrera Taylor, who advised coming to the ER. She is currently resting in bed with ongoing Lower back pain. She appears to have lower thoracic and lumbar compression fractures, daughter notes she has not had these before. She is aware of osteoporosis for which she was prescribed Vitamin D however the patient does not take it because she thinks it makes her urine smell bad. She normally can walk with a walker and sometimes uses a wheelchair. Currently she cannot walk at all. The patient is very wheezy and on o2 which she does not normally wear. The patient and daughter note that she has a chronic cough and chronic wheezing they say that they were told by a doctor it was a smokers cough, she formerly smoked. She does not see a health insurance adjuster. [] Past Medical History Past Medical History (Chronic Problems): Chronic Problems (Last Reviewed 01/20/19 @ 10:08 by Katie Torres) Ulcer of right lower leg (Chronic) Ulcer of right groin with fat layer exposed (Chronic) Wound of right lower extremity (Chronic) Right lower extremity with fat layer exposed Compression fracture (Chronic) Debility (Chronic) Hx TIA/stroke w/o resid (Chronic) Diabetes (Chronic) HTN (hypertension) (Chronic) Chronic ulcer of left heel with fat layer exposed (Chronic) Decubitus ulcer of left heel, stage 4 (Chronic) PAD (peripheral artery disease) (Chronic) Tobacco abuse (Chronic) Medical History: Medical History (Last Reviewed 01/20/19 @ 10:08 by Katie Torres) Hx TIA/stroke w/o resid (Chronic) Z86.73 Diabetes (Chronic) E11.9 Neurogenic bladder (Acute) N31.9 Urinary retention (Acute) R33.9 Neurogenic bladder (Acute) N31.9 Urge incontinence (Acute) N39.41 Nocturia (Acute) R35.1 Intertrochanteric fracture of left hip (Acute) S72.142A Left humeral fracture (Suspected) S42.302A HTN (hypertension) (Chronic) I10 Chronic ulcer of left heel with fat layer exposed (Chronic) L97.422 Decubitus ulcer of left heel, stage 4 (Chronic) L89.624 PAD (peripheral artery disease) (Chronic) I73.9 Tobacco abuse (Chronic) Z72.0 Allergies amoxicillin [From Augmentin] Allergy (Verified 12/04/19 14:32) Rash atorvastatin [From Lipitor] Allergy (Verified 05/06/19 17:27) Other clavulanic acid [From Augmentin] Allergy (Verified 12/04/19 14:32) Rash gabapentin Allergy (Verified 12/04/19 14:32) Nausea quinapril [From Accupril] Allergy (Verified 05/06/19 17:27) Rash Home Medications: Ambulatory Orders Medication Instructions Recorded Amlodipine Besylate [Norvasc] 10 mg PO DAILY 06/16/18 Hydrochlorothiazide [Hctz] 12.5 mg PO DAILY 06/16/18 Losartan Potassium [Cozaar] 100 mg PO DAILY 06/16/18 Naproxen 500 mg PO QHS 09/08/18 Rosuvastatin Calcium 5 mg PO QHS 09/08/18 acetaminophen 500 mg tablet 500 mg PO Q6H PRN 01/20/19 docusate sodium 100 mg capsule 100 mg PO DAILY 01/20/19 oxycodone 5 mg tablet 5 mg PO Q4H PRN tab 01/20/19 polyethylene glycol 3350 17 gram 17 g PO DAILY 01/20/19 oral powder packet Aspirin 325 mg PO DAILY@0800 tablet 02/11/19 Atorvastatin Calcium 10 mg PO QHS 02/11/19 Clopidogrel Bisulfate [Plavix] 75 mg PO DAILY 06/01/19 Metformin HCl 500 mg PO BID 02/12/19 Surgical History: Surgical History (Last Reviewed 01/20/19 @ 10:08 by Katie Torres) Hx of tonsillectomy (Acute) Z90.89 Hx of bladder repair surgery (Acute) Z98.890 History of partial hysterectomy (Acute) Z90.711 History of lumpectomy of right breast (Acute) Z98.890 History of right-sided carotid endarterectomy (Acute) Z98.890 2008 Surgical History: total hip arthroplasty, - - Bladder Surgery x2; right carotid endarectomy; and bladder stimulator placed at back Psychiatric History: No pertinent psych hx 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 Denies: Chills, Fever, Weight Change HEENT: Denies: Head Aches, Sinus Congestion, Sinus Drainage Cardiovascular: Denies: Chest Pain, Palpitations Respiratory: Reports: Cough, Shortness of Breath, Shortness of breath at rest, Shortness of breath upon exertion, Wheezing. Denies: Hemoptysis, Sputum p roduction Gastrointestinal: Reports: Nausea, Vomiting. Denies: Abdominal Pain, Diarrhea Genitourinary: Denies: Dysuria, Frequency, Urgency Musculoskeletal: Reports: - - lower back pain. Denies: Joint Pain, Joint Tenderness Skin: Denies: Rash, Wounds Neurological: Denies: Numbness, Tingling, Focal weakness Psychiatric: Denies: Anxiety, Depression, Homicidal Ideations, Suicidal Ideations Hematologic/ Lymphatic: Denies: Easy Bruising, Easy Bleeding VTE Information - Inpt Only VTE Present on Admission: No VTE Mechan Device Prophylaxis: None VTE Pharm Prophylaxis ordered?: Yes Patient Problems: Active and Suspected Problems (Last Reviewed 01/20/19 @ 10:08 by Katie Torres) COPD exacerbation (Acute) - Physical Exam Vitals/I&O's: Vital Signs Temp Pulse Resp BP Pulse Ox 98.4 F 98 17 134/63 H 92 12/04/19 16:16 12/04/19 16:16 12/04/19 16:16 12/04/19 16:16 12/04/19 16:16 Oxygen Flow Rate (L/min) 2 Oxygen Delivery Method Nasal Cannula Weight: 166 lb 7.184 oz Body Mass Index (BMI) 28.5 Finger Stick Blood Glucose 156 Intake and Output for Last 24 Hours 12/02/19 12/03/19 12/04/19 23:59 23:59 23:59 Intake Total 500 / 500 Balance 500 / 500 General: Alert, Oriented x3, Cooperative HEENT: Atraumatic, PERRLA, EOMI, Normocephalic Neck: Supple, No JVD, Negative Carotid Bruits Lungs: Diminished, Wheezes Cardiovascular: Regular rate, No murmurs Abdomen: Bowel Sounds Present, Soft, Non Tender Extremities: No edema, Capillary Refill Less than 3 Seconds Skin: No rashes, No breakdown Musculoskeletal: No Tenderness to Palpation of Joints or Extremities Neurological: Cranial nerves II-XII grossly intact Psych/Mental Status: Normal Affect, Appropriate, Alert and oriented to time, place, person, mood and affect Microbiology Past 72 Hours 12/04/19 14:15 Nasal Secretion Rapid RSV (DFA) - Final 12/04/19 14:15 Mucosa - Nose Influenza Types A,B Direct FA (GARY) - Final Laboratory Results 12/04/19 14:04: WBC 10.3, RBC 4.49, Hgb 13.9, Hct 40.0, MCV 89.1, MCH 31.0, MCHC 34.8, RDW Std Deviation 41.8, RDW Coeff of Mirza 12.8, Plt Count 262, MPV 10.0, Immature Gran % (Auto) 0.500, Neut % (Auto) 87.4 H, Lymph % (Auto) 6.4 L, Vigo % (Auto) 5.5, Eos % (Auto) 0.0, Baso % (Auto) 0.2, Absolute Neuts (auto) 9.0 H, Absolute Lymphs (auto) 0.66 L, Nucleated RBC % 0 12/04/19 14:04: Sodium 131 L, Potassium 2.9 L, Chloride 92 L, Carbon Dioxide 31.0, Anion Gap 8, BUN 16, Creatinine 0.68, Estim Creat Clear Calc 45.20, Est GFR (MDRD) Af Amer 109, Est GFR (MDRD) Non-Af 90, BUN/Creatinine Ratio 23.5 H, Glucose 120 H, Calcium 9.3, Total Bilirubin 0.60, AST 12 L, ALT 13, Alkaline Phosphatase 78, Troponin I < 0.015, Total Protein 7.6, Albumin 3.5, Globulin 4.1, Albumin/Globulin Ratio 0.9, Lipase 47 L 12/04/19 14:59: Urine Color Yellow, Urine Clarity Clear, Urine pH 6.5, Ur Specific Hunter 1.010, Urine Protein 100 H, Urine Glucose (UA) Normal, Urine Ketones 50 H, Urine Occult Blood 10 H, Urine Nitrite Negative, Urine Bilirubin Negative, Urine Urobilinogen Normal, Ur Leukocyte Esterase Negative, Urine RBC 0-5 SEEN, Urine WBC 0 SEEN, Ur Squamous Epith Cells 0-5 SEEN, Urine Bacteria 1+, Urine Mucus 0 SEEN Assessment/Plan All Active Problems (Last Reviewed 01/20/19 @ 10:08 by Katie Torres) Ischemia of right lower extremity (Acute) Injury of right common femoral artery (Acute) Postoperative wound dehiscence (Acute) COPD exacerbation (Acute) Hx of tonsillectomy (Acute) Hx of bladder repair surgery (Acute) History of partial hysterectomy (Acute) History of lumpectomy of right breast (Acute) History of right-sided carotid endarterectomy (Acute) Neurogenic bladder (Acute) Urinary retention (Acute) Neurogenic bladder (Acute) Urge incontinence (Acute) Nocturia (Acute) Intertrochanteric fracture of left hip (Acute) 1. Mild COPD exacerbation - very wheezy and more SOB than normal. No hypoxia. CXR neg. Chronic cough, non productive, no fever/chills/leukocytosis. Increased SOB this AM prompting call to PCP. Start aerosols, solumedrol, incentive spirometer. Check viral panel. Trop neg. 2. Intractable back pain, debility, inability to ambulate 2/2 recent fall, compression fractures - xray with lower thoracic, L spine compression fractures. PTOT, supportive care. Start Vit D. Ca++ nl. Would benefit from alendronate as o/p. 3. Hyponatremia, hypokalemia 2/2 poor po intake, nausea vomiting - IV fluids, K replaced in ER. Trend. Lipase neg. 4. HTN - stable. hold hctz given hyponatremia. 5. Neurogenic bladder - has bladder stimulator. 6. PAD - prior stenting. continue asa/statin/plavix/norvasc 7. Constipation - prn's ordered 8. HLD - statin 9. DMt2 - hold metformin, provide accuchecks/SSI DVT ppx: lovenox DC Planning: PTOT, may need SNF, [facility] This patient was seen by Rico Luna PA-C under the supervision of Dr. Aguilar.
--- NOTE | 2019-12-04 17:09 | NURSING ---
MED SURG COPD EXAC, INTACTABLE PAIN SEMENTI
--- NOTE | 2019-12-04 17:20 | NURSING ---
306 FUNCTIONAL DECLINE, COMPRESSION FX SEMENTI
[2019-12-04] MEDS: 0.9% Normal Saline 1,000 ML 75 ML IV (18:36)
[2019-12-04] MEDS: Lidocaine 5% Patch 1 PATCH TOPICAL (18:50)
[2019-12-04 20:20] LABS: Erythrocyte Sedimentation Rate 48 mm/hr (0-30)
[2019-12-04 20:49] LABS: BNP,B-Type NATRIURETIC PEPTIDE 74.8 pg/mL (0-100)
[2019-12-04] MEDS: Atorvastatin Calcium 10 MG Tablet PO (22:10)
[2019-12-04] MEDS: oxyCODONE 5 MG Tablet PO (22:22)
[2019-12-04 22:31] LABS: Bedside Glucose 142 mg/dL (70-110)
[2019-12-05] VITALS (19 sets, daily range): BP systolic 141–184; BP diastolic 66–94; PULSE 85–111; RESP 18–20; TEMP 36.6–37.3; O2SAT 86–96
[2019-12-05] MEDS: Senna/Docusate Sodium 1 Tablet PO (02:32)
[2019-12-05] MEDS: oxyCODONE 5 MG Tablet PO (02:32)
[2019-12-05] MEDS: amLODIPine 10 MG Tablet PO (05:28)
[2019-12-05] MEDS: Losartan Potassium 100 MG Tablet PO (05:28)
[2019-12-05] MEDS: 0.9% Normal Saline 1,000 ML 75 ML IV ×2 (06:19→20:09)
[2019-12-05] MEDS: Insulin Lispro 100 UNIT/ML INSULN.PEN SC ×3 (06:55→22:29)
[2019-12-05 07:00] LABS: Anion Gap 7 (5-15); BUN 12 mg/dL (7-18); BUN/Creat Ratio 19.9 RATIO (10-20); Calcium,Total 8.9 mg/dL (8.5-10.1); Chloride 94 mmol/L (98-107); EST Glomerular Filtration Rate 104 mL/min (>60); Est Glom Filt Rate - Afr Amer 126 mL/min (>60); Glucose 173 mg/dL (74-106); Potassium 2.9 mmol/L (3.5-5.1); Sodium Level 132 mmol/L (136-145)
[2019-12-05] MEDS: Ipratropium/Albuterol Sulfate 3 ML AMPUL.NEB INHALATION ×3 (07:08→15:08)
[2019-12-05 07:41] LABS: Magnesium 1.6 mg/dL (1.6-2.6)
--- NOTE | 2019-12-05 08:08 | CASEMGMT ---
Social Work Note Per technical support engineer questions, pt has completed advanced directives and declined wanting information. Jennifer Newman MAT TESTER, SHEET METAL LAY OUT WORKER
[2019-12-05] MEDS: Enoxaparin 40 MG/0.4 ML Syringe SC (08:18)
[2019-12-05] MEDS: Polyethylene Glycol 3350 17 GM PACKET PO (08:18)
[2019-12-05] MEDS: Clopidogrel Bisulfate 75 MG Tablet PO (08:18)
[2019-12-05] MEDS: Aspirin 325 MG Tablet PO (08:18)
[2019-12-05] MEDS: Potassium Chloride 10mEq/100mL 10 MEQ/100 ML IV.SOLN. 100 MEQ IV BOLUS ×4 (08:19→12:24)
--- NOTE | 2019-12-05 10:00 | CASEMGMT ---
RN CM Face to Face with patient for initial transition planning/care coordination assessment. RN CM introduced self and role at [facility]. Patient lying in bed, alert and oriented. Patient willing to participate in assessment and is able to answer all questions appropriately. Care providers, pharmacy, and demographics verified. Patient wishes to discharge home, with resumption of HHC with [facility]. Will continue to monitor how patient does with therapy. Patient states she has no further needs or concerns at this time. CM to follow for discharge planning needs that may arise. PCP: Brandon Specialists: jessi Zamorano Preferred Pharmacy: [facility] Insurance: [employer] [facility] Prescription Benefit: yes Living Will/HPOA: None LNOK: and daughter Living Arrangements: Patient lives with in 1st floor apartment with no steps to enter. Transportation: daughter DME/HHC: Patient states that she has shower chair, BSC, cane, walker and wheelchair at home. Patient has been to [facility] and [place] in the past. Patient is current with [facility] for therapy Disposition Plan: TBD by course of treatment with therapy. Jennifer MCCLELLANDN, RN, CM
--- NOTE | 2019-12-05 11:16 | NURSING ---
Chloé Jaramillo- daughter and POA called in for update- same given. Questions answered and Chloé denies further needs at this time.
[2019-12-05 11:26] LABS: Bedside Glucose 252 mg/dL (70-110)
--- NOTE | 2019-12-05 12:47 | PCM.PN.HOSP ---
<Rico Luna - Last Filed: 12/05/19 12:47> Patient Problems: Active and Suspected Problems (Last Reviewed 01/20/19 @ 10:08 by Katie Torres) COPD exacerbation (Acute) Reason for Visit: back pain, sob Subjective: Today no SOB, wheezing resolved. No nausea or vomiting. No BM yet. Ongoing severe lower back pain. No fever/chills. Severe hearing loss despite hearing aids, able to hear somewhat in right ear. Vitals/I&O's: Vital Signs Temp Pulse Resp BP Pulse Ox 97.8 F 103 H 18 155/78 H 95 12/05/19 08:31 12/05/19 11:02 12/05/19 11:32 12/05/19 08:31 12/05/19 08:31 Oxygen Flow Rate (L/min) 1 Oxygen Delivery Method Nasal Cannula Weight: 166 lb 7.184 oz Body Mass Index (BMI) 28.5 Finger Stick Blood Glucose 156 Intake and Output for Last 24 Hours 12/03/19 12/04/19 12/05/19 23:59 23:59 23:59 Intake Total 500 / 500 2242.50 / 2242.50 Output Total 1250 / 1250 Balance 500 / 0 992.50 / 992.50 General: Alert, Oriented x3, Cooperative HEENT: Atraumatic, PERRLA, EOMI, Normocephalic Neck: Supple, No JVD, Negative Carotid Bruits Lungs: Clear to auscultation, Diminished, - - wheezing resolved. Cardiovascular: Regular rate, No murmurs Abdomen: Bowel Sounds Present, Soft, Non Tender Extremities: No edema, Capillary Refill Less than 3 Seconds Skin: No rashes, No breakdown Musculoskeletal: No Tenderness to Palpation of Joints or Extremities Neurological: Cranial nerves II-XII grossly intact Psych/Mental Status: Normal Affect, Appropriate, Alert and oriented to time, place, person, mood and affect Microbiology Past 72 Hours 12/04/19 19:15 Mucosa - Nasopharyngeal Respiratory Panel (PCR) - Final 12/04/19 14:15 Nasal Secretion Rapid RSV (DFA) - Final 12/04/19 14:15 Mucosa - Nose Influenza Types A,B Direct FA (GARY) - Final Laboratory Results 12/04/19 14:04: WBC 10.3, RBC 4.49, Hgb 13.9, Hct 40.0, MCV 89.1, MCH 31.0, MCHC 34.8, RDW Std Deviation 41.8, RDW Coeff of Mirza 12.8, Plt Count 262, MPV 10.0, Immature Gran % (Auto) 0.500, Neut % (Auto) 87.4 H, Lymph % (Auto) 6.4 L, [place] % (Auto) 5.5, Eos % (Auto) 0.0, Baso % (Auto) 0.2, Absolute Neuts (auto) 9.0 H, Absolute Lymphs (auto) 0.66 L, Nucleated RBC % 0 12/04/19 14:04: Sodium 131 L, Potassium 2.9 L, Chloride 92 L, Carbon Dioxide 31.0, Anion Gap 8, BUN 16, Creatinine 0.68, Estim Creat Clear Calc 45.20, Est GFR (MDRD) Af Amer 109, Est GFR (MDRD) Non-Af 90, BUN/Creatinine Ratio 23.5 H, Glucose 120 H, Calcium 9.3, Total Bilirubin 0.60, AST 12 L, ALT 13, Alkaline Phosphatase 78, Troponin I < 0.015, Total Protein 7.6, Albumin 3.5, Globulin 4.1, Albumin/Globulin Ratio 0.9, Lipase 47 L 12/04/19 14:04: ESR 48 H 12/04/19 14:04: C-React Prot Ext Range 105.00 H 12/04/19 14:59: Urine Color Yellow, Urine Clarity Clear, Urine pH 6.5, Ur Specific [place] 1.010, Urine Protein 100 H, Urine Glucose (UA) Normal, Urine Ketones 50 H, Urine Occult Blood 10 H, Urine Nitrite Negative, Urine Bilirubin Negative, Urine Urobilinogen Normal, Ur Leukocyte Esterase Negative, Urine RBC 0-5 SEEN, Urine WBC 0 SEEN, Ur Squamous Epith Cells 0-5 SEEN, Urine Bacteria 1+, Urine Mucus 0 SEEN 12/04/19 19:28: B-Natriuretic Peptide 74.8 12/04/19 22:18: POC Glucose 142 H 12/05/19 06:05: Vit D 1,25-Dihydroxy Pending 12/05/19 06:05: Sodium 132 L, Potassium 2.9 L, Chloride 94 L, Carbon Dioxide 31.0, Anion Gap 7, BUN 12, Creatinine 0.60, Estim Creat Clear Calc 45.20, Est GFR (MDRD) Af Amer 126, Est GFR (MDRD) Non-Af 104, BUN/Creatinine Ratio 19.9, Glucose 173 H, Calcium 8.9 12/05/19 06:05: Magnesium 1.6 12/05/19 11:18: POC Glucose 252 H Current Medications Acetaminophen (Tylenol) 650 mg PO Q6H PRN PRN PRN Reason: Pain Score 1-10/10 Albuterol Sulfate (Ventolin Aerosols) 2.5 mg INHALATION Q4H PRN PRN PRN Reason: SOB &/OR WHEEZING Albuterol/Ipratropium (Duoneb) 3 ml INHALATION Q4HWA.RT [facility] Last Admin: 12/05/19 11:02 Dose: 3 ml Documented by: Amlodipine Besylate (Norvasc) 10 mg PO DAILY [facility] Last Admin: 12/05/19 05:28 Dose: 10 mg Documented by: Aspirin (Aspirin) 325 mg PO DAILY@0800 [facility] Last Admin: 12/05/19 08:18 Dose: 325 mg Documented by: Atorvastatin Calcium (Lipitor) 10 mg PO QHS [facility] Last Admin: 12/04/19 22:10 Dose: 10 mg Documented by: Clopidogrel Bisulfate (Plavix) 75 mg PO DAILY [facility] Last Admin: 12/05/19 08:18 Dose: 75 mg Documented by: Enoxaparin Sodium (Lovenox) 40 mg SC DAILY [facility] Last Admin: 12/05/19 08:18 Dose: 40 mg Documented by: Glucagon () 1 mg IM .X1 PRN PRN Reason: Hypoglycemia Sodium Chloride () 1,000 mls @ 75 mls/hr IV .[id number] [facility] Last Admin: 12/05/19 06:19 Dose: 75 mls/hr Documented by: Dextrose (Dextrose 10%-Water) 250 mls @ 999 mls/hr IV .Q16M PRN; Protocol PRN Reason: HYPOGLYCEMIA Sodium Chloride () 250 mls @ 15 mls/hr IV .[id number] PRN PRN Reason: Saline Flush Last Infusion: 12/05/19 11:14 Dose: 0 mls/hr Documented by: Insulin Human Lispro (Humalog Kwikpen (Bkc)) 0 unit SC ACHS [facility]; Protocol Last Admin: 03/23/20 11:20 Dose: 2 u Documented by: Labetalol HCl (Trandate) 10 mg IV Q4H PRN PRN PRN Reason: high bp Last Admin: 12/05/19 02:40 Dose: 10 mg Documented by: Lidocaine (Lidoderm Patch) 1 patch TOPICAL QHS [facility]; Protocol Last Admin: 12/04/19 18:50 Dose: 1 patch Documented by: Losartan Potassium (Cozaar) 100 mg PO DAILY [facility] Last Admin: 12/05/19 05:28 Dose: 100 mg Documented by: Magnesium Hydroxide (Milk Of Magnesia) 30 ml PO DAILY PRN PRN PRN Reason: Constipation Methylprednisolone (Solu-Medrol) 40 mg IV Q8 [facility] Last Admin: 12/05/19 05:28 Dose: 40 mg Documented by: Morphine Sulfate () 1 mg IV Q3H PRN PRN PRN Reason: Pain Score 6-10/10 Ondansetron HCl (Zofran) 4 mg IV Q6H PRN PRN PRN Reason: NAUSEA Oxycodone HCl (Oxyir) 5 mg PO Q4H PRN PRN PRN Reason: Pain Score 6-10/10 Last Admin: 12/05/19 02:32 Dose: 5 mg Documented by: Polyethylene Glycol (Miralax) 17 gm PO DAILY [facility] Last Admin: 12/05/19 08:18 Dose: 17 gm Documented by: Pot[facility]: 12/05/19 08:18 Dose: 10 meq Documented by: Senna/Docusate Sodium (Senokot-S, Rachana-Colace) 1 tablet PO DAILY PRN PRN PRN Reason: CONSTIPATION Last Admin: 12/05/19 02:32 Dose: 1 tablet Documented by: Sodium Chloride () 10 - 40 ml IV UD PRN PRN Reason: SALINE FLUSH STROKE Vital Signs/Narrative: Vital Signs Pulse Resp 12/05/19 11:32 18 12/05/19 11:02 103 H 20 H 12/05/19 10:00 93 Medical Necessity - Tobacco Use Smoking Status: Current every day smoker Tobacco Use: Non-smoker Assessment/Plan All Active Problems (Last Reviewed 01/20/19 @ 10:08 by Katie Torres) Ischemia of right lower extremity (Acute) Injury of right common femoral artery (Acute) Postoperative wound dehiscence (Acute) COPD exacerbation (Acute) Hx of tonsillectomy (Acute) Hx of bladder repair surgery (Acute) History of partial hysterectomy (Acute) History of lumpectomy of right breast (Acute) History of right-sided carotid endarterectomy (Acute) Neurogenic bladder (Acute) Urinary retention (Acute) Neurogenic bladder (Acute) Urge incontinence (Acute) Nocturia (Acute) Intertrochanteric fracture of left hip (Acute) 1. Mild COPD exacerbation - wheezing resolved. no hypoxia. continue steroids, aerosols, spirometer. res penal neg, rapid flu/rsv neg. 2. Intractable back pain, debility, inability to ambulate 2/2 recent fall, compression fractures - xray with lower thoracic, L spine compression fractures. PTOT, supportive care. Start Vit D (vit D level pending). Ca++ nl. Would benefit from alendronate as o/p. 3. Hyponatremia, hypokalemia, hypomag, 2/2 poor po intake, nausea vomiting - IV fluids, replete K, mag, check phos. 4. HTN - mildly elevated. hold hctz given hyponatremia. on losartan and norvasc. 5. Neurogenic bladder - has bladder stimulator. 6. PAD - prior stenting. continue asa/statin/plavix/norvasc 7. Constipation - prn's ordered 8. HLD - statin 9. DMt2 - hold metformin, provide accuchecks/SSI DVT ppx: lovenox DC Planning: PTOT, may need SNF, previously at [facility] [place] This patient was seen by Rico Luna PA-C under the supervision of Dr. Wagner <Griselda Wagner - Last Filed: 12/05/19 13:54> Vitals/I&O's: Vital Signs Temp Pulse Resp BP Pulse Ox 97.8 F 103 H 18 155/78 H 95 12/05/19 08:31 12/05/19 11:02 12/05/19 11:32 12/05/19 08:31 12/05/19 08:31 Oxygen Flow Rate (L/min) 1 Oxygen Delivery Method Nasal Cannula Weight: 166 lb 7.184 oz Body Mass Index (BMI) 28.5 Finger Stick Blood Glucose 156 Intake and Output for Last 24 Hours 12/03/19 12/04/19 12/05/19 23:59 23:59 23:59 Intake Total 500 / 500 2242.50 / 2242.50 Output Total 1250 / 1250 Balance 500 / 0 992.50 / 992.50 Microbiology Past 72 Hours 12/04/19 19:15 Mucosa - Nasopharyngeal Respiratory Panel (PCR) - Final 12/04/19 14:15 Nasal Secretion Rapid RSV (DFA) - Final 12/04/19 14:15 Mucosa - Nose Influenza Types A,B Direct FA (GARY) - Final Laboratory Results 12/04/19 14:04: WBC 10.3, RBC 4.49, Hgb 13.9, Hct 40.0, MCV 89.1, MCH 31.0, MCHC 34.8, RDW Std Deviation 41.8, RDW Coeff of Mirza 12.8, Plt Count 262, MPV 10.0, Immature Gran % (Auto) 0.500, Neut % (Auto) 87.4 H, Lymph % (Auto) 6.4 L, [place] % (Auto) 5.5, Eos % (Auto) 0.0, Baso % (Auto) 0.2, Absolute Neuts (auto) 9.0 H, Absolute Lymphs (auto) 0.66 L, Nucleated RBC % 0 12/04/19 14:04: Sodium 131 L, Potassium 2.9 L, Chloride 92 L, Carbon Dioxide 31.0, Anion Gap 8, BUN 16, Creatinine 0.68, Estim Creat Clear Calc 45.20, Est GFR (MDRD) Af Amer 109, Est GFR (MDRD) Non-Af 90, BUN/Creatinine Ratio 23.5 H, Glucose 120 H, Calcium 9.3, Total Bilirubin 0.60, AST 12 L, ALT 13, Alkaline Phosphatase 78, Troponin I < 0.015, Total Protein 7.6, Albumin 3.5, Globulin 4.1, Albumin/Globulin Ratio 0.9, Lipase 47 L 12/04/19 14:04: ESR 48 H 12/04/19 14:04: C-React Prot Ext Range 105.00 H 12/04/19 14:59: Urine Color Yellow, Urine Clarity Clear, Urine pH 6.5, Ur Specific [place] 1.010, Urine Protein 100 H, Urine Glucose (UA) Normal, Urine Ketones 50 H, Urine Occult Blood 10 H, Urine Nitrite Negative, Urine Bilirubin Negative, Urine Urobilinogen Normal, Ur Leukocyte Esterase Negative, Urine RBC 0-5 SEEN, Urine WBC 0 SEEN, Ur Squamous Epith Cells 0-5 SEEN, Urine Bacteria 1+, Urine Mucus 0 SEEN 12/04/19 19:28: B-Natriuretic Peptide 74.8 12/04/19 22:18: POC Glucose 142 H 12/05/19 06:05: Vit D 1,25-Dihydroxy Pending 12/05/19 06:05: Sodium 132 L, Potassium 2.9 L, Chloride 94 L, Carbon Dioxide 31.0, Anion Gap 7, BUN 12, Creatinine 0.60, Estim Creat Clear Calc 45.20, Est GFR (MDRD) Af Amer 126, Est GFR (MDRD) Non-Af 104, BUN/Creatinine Ratio 19.9, Glucose 173 H, Calcium 8.9 12/05/19 06:05: Magnesium 1.6 12/05/19 06:05: Phosphorus 3.0 12/05/19 11:18: POC Glucose 252 H Current Medications Acetaminophen (Tylenol) 650 mg PO Q6H PRN PRN PRN Reason: Pain Score 1-10/10 Albuterol Sulfate (Ventolin Aerosols) 2.5 mg INHALATION Q4H PRN PRN PRN Reason: SOB &/OR WHEEZING Albuterol/Ipratropium (Duoneb) 3 ml INHALATION Q4HWA.RT [facility] Last Admin: 12/05/19 11:02 Dose: 3 ml Documented by: Amlodipine Besylate (Norvasc) 10 mg PO DAILY [facility] Last Admin: 12/05/19 05:28 Dose: 10 mg Documented by: Aspirin (Aspirin) 325 mg PO DAILY@0800 [facility] Last Admin: 12/05/19 08:18 Dose: 325 mg Documented by: Atorvastatin Calcium (Lipitor) 10 mg PO QHS [facility] Last Admin: 12/04/19 22:10 Dose: 10 mg Documented by: Clopidogrel Bisulfate (Plavix) 75 mg PO DAILY [facility] Last Admin: 12/05/19 08:18 Dose: 75 mg Documented by: Enoxaparin Sodium (Lovenox) 40 mg SC DAILY [facility] Last Admin: 12/05/19 08:18 Dose: 40 mg Documented by: Glucagon () 1 mg IM .X1 PRN PRN Reason: Hypoglycemia Sodium Chloride () 1,000 mls @ 75 mls/hr IV .[id number] [facility] Last Admin: 12/05/19 06:19 Dose: 75 mls/hr Documented by: Dextrose (Dextrose 10%-Water) 250 mls @ 999 mls/hr IV .Q16M PRN; Protocol PRN Reason: HYPOGLYCEMIA Sodium Chloride () 250 mls @ 15 mls/hr IV .[id number] PRN PRN Reason: Saline Flush Last Infusion: 12/05/19 11:14 Dose: 0 mls/hr Documented by: Magnesium Sulfate 2 gm/ Sodium (Chloride) 104 mls @ 52 mls/hr IV X1 ONE Stop: 12/05/19 14:59 Last Admin: 12/05/19 13:35 Dose: 52 mls/hr Documented by: Insulin Human Lispro (Humalog Kwikpen (Bkc)) 0 unit SC [facility]; Protocol Last Admin: 12/05/19 11:20 Dose: 2 u Documented by: Labetalol HCl (Trandate) 10 mg IV Q4H PRN PRN PRN Reason: high bp Last Admin: 12/05/19 02:40 Dose: 10 mg Documented by: Lidocaine (Lidoderm Patch) 1 patch TOPICAL QHS [facility]; Protocol Last Admin: 12/04/19 18:50 Dose: 1 patch Documented by: Losartan Potassium (Cozaar) 100 mg PO DAILY [facility] Last Admin: 12/05/19 05:28 Dose: 100 mg Documented by: Magnesium Hydroxide (Milk Of Magnesia) 30 ml PO DAILY PRN PRN PRN Reason: Constipation Methylprednisolone (Solu-Medrol) 40 mg IV Q8 [facility] Last Admin: 12/05/19 13:35 Dose: 40 mg Documented by: Morphine Sulfate () 1 mg IV Q3H PRN PRN PRN Reason: Pain Score 6-10/10 Ondansetron HCl (Zofran) 4 mg IV Q6H PRN PRN PRN Reason: NAUSEA Oxycodone HCl (Oxyir) 5 mg PO Q4H PRN PRN PRN Reason: Pain Score 6-10/10 Last Admin: 12/05/19 02:32 Dose: 5 mg Documented by: Polyethylene Glycol (Miralax) 17 gm PO DAILY [facility] Last Admin: 12/05/19 08:18 Dose: 17 gm Documented by: Potassium Chloride (K-Dur) 10 meq PO DAILYCM [facility] Last Admin: 12/05/19 08:18 Dose: 10 meq Documented by: Senna/Docusate Sodium (Senokot-S, Rachana-Colace) 1 tablet PO DAILY PRN PRN PRN Reason: CONSTIPATION Last Admin: 12/05/19 02:32 Dose: 1 tablet Documented by: Sodium Chloride () 10 - 40 ml IV UD PRN PRN Reason: SALINE FLUSH STROKE Vital Signs/Narrative: Vital Signs Pulse Resp 12/05/19 11:32 18 12/05/19 11:02 103 H 20 H 12/05/19 10:00 93 Assessment/Plan patient seen by Rico Luna PA-C under my supervision Patient was admitted with a complaint of shortness of breath and severe lower back pain with assisted nausea and vomiting. She had also had some falls at home. She is currently being managed for debility due to intractable back pain and COPD exacerbation. Patient seen and examined. She tells me she did not want to come in and her daughter made her come in because of her back pain and shortness of breath. She denied feeling short of breath now and denied any cough, chest pain, palpitations, dizziness, nausea vomiting or diarrhea. Review of systems otherwise negative. Labs and vitals reviewed. She still is tachycardic though tachypnea has resolved. She is now on 1 L of oxygen. o/e: Vital Signs Height 5 ft 4 in Weight: 166 lb 7.184 oz Weight in Pounds 166.4 lbs Pulse Ox 95 Temperature 97.8 F Pulse Rate 103 Respiratory Rate 18 Blood Pressure [BP] 141/66 Blood Pressure 155/78 Blood Pressure Position [BP] Semi-Fowlers Blood Pressure Position Semi-Fowlers General: Alert, Oriented x3, Cooperative HEENT: Atraumatic, PERRLA, EOMI, Normocephalic Neck: Supple, No JVD, Negative Carotid Bruits Lungs: breath sounds diminished bibasally, few crackes bibasally. No wheezing or rhonchi Cardiovascular: Regular rate, No murmurs Abdomen: Bowel Sounds Present, Soft, Non Tender Extremities: No edema, Capillary Refill Less than 3 Seconds Skin: No rashes, No breakdown Musculoskeletal: No Tenderness to Palpation of Joints or Extremities Neurological: Cranial nerves II-XII grossly intact Psych/Mental Status: Normal Affect, Appropriate, Alert and oriented to time, place, person, mood and affect Plan is to continue breathing treatments and bronchodilators as well as IV Solu-Medrol. Patient also has hypokalemia with potassium of 2.9 and if this is been replaced aggressively. She has mild hyponatremia with sodium of 132. Will hydrate gently with IV fluids and monitor. BNP was 74.8. Chest x-ray showed clear expanded lungs with no acute cardiopulmonary process. Patient counseled to quit smoking. Titrate oxygen to maintain saturation above 90%. X-rays of the lumbar spine showed L1 and L2 compression fractures of indeterminate age and thoracic spine x-ray showed lower thoracic fractures also of indeterminate age. PT OT on board. On vitamin D supplementation. On Tylenol and oxycodone for pain. Also on morphine PRN. Rest as per Rico Luna PA-C's notes which I have reviewed and endorsed. Inpatient E&M: 39129 Subs Hosp L3
[2019-12-05 17:51] LABS: Bedside Glucose 161 mg/dL (70-110)
[2019-12-05] MEDS: Lidocaine 5% Patch 1 PATCH TOPICAL (22:28)
[2019-12-05] MEDS: Nystatin Powder 15gm Bottle 1 APPLIC TOPICAL (22:30)
[2019-12-05] MEDS: Atorvastatin Calcium 10 MG Tablet PO (22:30)
[2019-12-05 22:45] LABS: Bedside Glucose 158 mg/dL (70-110)
[2019-12-06] VITALS (19 sets, daily range): BP systolic 142–173; BP diastolic 79–90; PULSE 86–103; RESP 18–20; TEMP 37.1–37.3; O2SAT 89–95
[2019-12-06 01:51] LABS: Bedside Glucose 189 mg/dL (70-110)
[2019-12-06 06:19] LABS: Anion Gap 7 (5-15); BUN 15 mg/dL (7-18); BUN/Creat Ratio 27.5 RATIO (10-20); Calcium,Total 8.8 mg/dL (8.5-10.1); Chloride 97 mmol/L (98-107); Creatinine, Serum 0.55 mg/dL (0.55-1.02); EST Glomerular Filtration Rate 117 mL/min (>60); Est Glom Filt Rate - Afr Amer 142 mL/min (>60); Glucose 166 mg/dL (74-106); Magnesium 2.1 mg/dL (1.6-2.6); Potassium 3.4 mmol/L (3.5-5.1); Sodium Level 134 mmol/L (136-145)
[2019-12-06] MEDS: Insulin Lispro 100 UNIT/ML INSULN.PEN SC ×2 (06:31→12:43)
[2019-12-06] MEDS: Ipratropium/Albuterol Sulfate 3 ML AMPUL.NEB INHALATION ×4 (06:43→18:58)
[2019-12-06 07:41] LABS: Bedside Glucose 174 mg/dL (70-110)
[2019-12-06] MEDS: 0.9% Normal Saline 1,000 ML 75 ML IV (07:53)
[2019-12-06] MEDS: 0.9% Saline Lock 10 ML Syringe IV ×3 (08:19→21:57)
[2019-12-06] MEDS: Aspirin 325 MG Tablet PO (09:50)
[2019-12-06] MEDS: Polyethylene Glycol 3350 17 GM PACKET PO (09:51)
[2019-12-06] MEDS: Losartan Potassium 100 MG Tablet PO (09:51)
[2019-12-06] MEDS: Nystatin Powder 15gm Bottle 1 APPLIC TOPICAL ×2 (09:51→21:55)
[2019-12-06] MEDS: Enoxaparin 40 MG/0.4 ML Syringe SC (09:51)
[2019-12-06] MEDS: amLODIPine 10 MG Tablet PO (09:52)
[2019-12-06] MEDS: Clopidogrel Bisulfate 75 MG Tablet PO (09:52)
[2019-12-06] MEDS: Metoprolol Tartrate 25 MG Tablet 12.5 MG PO ×2 (09:56→21:56)
--- NOTE | 2019-12-06 10:53 | PCM.PN.HOSP ---
<Rico Luna - Last Filed: 12/06/19 10:53> Patient Problems: Active and Suspected Problems (Last Reviewed 01/20/19 @ 10:08 by Katie Torres) COPD exacerbation (Acute) Subjective: Pt very weak. 2-3 assist. Insisting on going home where it is only her and her . SOB has resolved. no cough. no fever/chills. No n/v/d. Vitals/I&O's: Vital Signs Temp Pulse Resp BP Pulse Ox 99.1 F 91 20 H 173/90 H 93 12/06/19 07:48 12/06/19 10:00 12/06/19 07:48 12/06/19 09:56 12/06/19 07:48 Oxygen Flow Rate (L/min) 1 Oxygen Delivery Method Nasal Cannula Weight: 166 lb 7.184 oz Body Mass Index (BMI) 28.5 Finger Stick Blood Glucose 156 Intake and Output for Last 24 Hours 12/04/19 12/05/19 12/06/19 23:59 23:59 23:59 Intake Total 500 / 500 3738.25 / 3978.25 1485.75 / 1485.75 Output Total 1350 / 1900 750 / 750 Balance 500 / 0 2388.25 / 2078.25 735.75 / 735.75 General: Alert, Oriented x3, Cooperative HEENT: Atraumatic, PERRLA, EOMI, Normocephalic Neck: Supple, No JVD, Negative Carotid Bruits Lungs: Clear to auscultation, Diminished Cardiovascular: Regular rate, No murmurs Abdomen: Bowel Sounds Present, Soft, Non Tender Extremities: No edema, Capillary Refill Less than 3 Seconds Skin: No rashes, No breakdown Musculoskeletal: No Tenderness to Palpation of Joints or Extremities Neurological: Cranial nerves II-XII grossly intact Psych/Mental Status: Normal Affect, Appropriate, Alert and oriented to time, place, person, mood and affect Microbiology Past 72 Hours 12/04/19 19:15 Mucosa - Nasopharyngeal Respiratory Panel (PCR) - Final 12/04/19 14:15 Nasal Secretion Rapid RSV (DFA) - Final 12/04/19 14:15 Mucosa - Nose Influenza Types A,B Direct FA (GARY) - Final Laboratory Results 12/05/19 06:05: Phosphorus 3.0 12/05/19 06:13: POC Glucose 189 H 12/05/19 11:18: POC Glucose 252 H 12/05/19 16:03: POC Glucose 161 H 12/05/19 22:26: POC Glucose 158 H 12/06/19 05:13: Sodium 134 L, Potassium 3.4 L, Chloride 97 L, Carbon Dioxide 30.0, Anion Gap 7, BUN 15, Creatinine 0.55, Estim Creat Clear Calc 45.20, Est GFR (MDRD) Af Amer 142, Est GFR (MDRD) Non-Af 117, BUN/Creatinine Ratio 27.5 H, Glucose 166 H, Calcium 8.8, Magnesium 2.1 12/06/19 06:29: POC Glucose 174 H Current Medications Acetaminophen (Tylenol) 650 mg PO Q6H PRN PRN PRN Reason: Pain Score 1-10/10 Albuterol Sulfate (Ventolin Aerosols) 2.5 mg INHALATION Q4H PRN PRN PRN Reason: SOB &/OR WHEEZING Albuterol/Ipratropium (Duoneb) 3 ml INHALATION Q4HWA.RT [facility] Last Admin: 12/06/19 10:50 Dose: 3 ml Documented by: Amlodipine Besylate (Norvasc) 10 mg PO DAILY [facility] Last Admin: 12/06/19 09:52 Dose: 10 mg Documented by: Aspirin (Aspirin) 325 mg PO DAILY@0800 [facility] Last Admin: 12/06/19 09:50 Dose: 325 mg Documented by: Atorvastatin Calcium (Lipitor) 10 mg PO QHS [facility] Last Admin: 12/05/19 22:30 Dose: 10 mg Documented by: Clopidogrel Bisulfate (Plavix) 75 mg PO DAILY [facility] Last Admin: 12/06/19 09:52 Dose: 75 mg Documented by: Enoxaparin Sodium (Lovenox) 40 mg SC DAILY [facility] Last Admin: 12/06/19 09:51 Dose: 40 mg Documented by: Glucagon () 1 mg IM .X1 PRN PRN Reason: Hypoglycemia Dextrose (Dextrose 10%-Water) 250 mls @ 999 mls/hr IV .Q16M PRN; Protocol PRN Reason: HYPOGLYCEMIA Sodium Chloride () 250 mls @ 15 mls/hr IV .[id number] PRN PRN Reason: Saline Flush Last Infusion: 12/06/19 06:37 Dose: Infused Documented by: Insulin Human Lispro (Humalog Kwikpen (Bkc)) 0 unit SC ACHS [facility]; Protocol Last Admin: 12/06/19 06:31 Dose: 1 u Documented by: Labetalol HCl (Trandate) 10 mg IV Q4H PRN PRN PRN Reason: high bp Last Admin: 12/06/19 08:19 Dose: 10 mg Documented by: Lidocaine (Lidoderm Patch) 1 patch TOPICAL QHS [facility]; Protocol Last Admin: 12/05/19 22:28 Dose: 1 patch Documented by: Losartan Potassium (Cozaar) 100 mg PO DAILY [facility] Last Admin: 12/06/19 09:51 Dose: 100 mg Documented by: Magnesium Hydroxide (Milk Of Magnesia) 30 ml PO DAILY PRN PRN PRN Reason: Constipation Methylprednisolone (Solu-Medrol) 40 mg IV Q8 [facility] Last Admin: 12/06/19 06:27 Dose: 40 mg Documented by: Metoprolol Tartrate (Lopressor (Beta Orville)) 12.5 mg PO BID [facility] Last Admin: 12/06/19 09:56 Dose: 12.5 mg Documented by: Morphine Sulfate () 1 mg IV Q3H PRN PRN PRN Reason: Pain Score 6-10/10 Nystatin (Mycostatin Powder) 1 applic TOPICAL BID [facility]; Protocol Last Admin: 12/06/19 09:51 Dose: 1 applic Documented by: Ondansetron HCl (Zofran) 4 mg IV Q6H PRN PRN PRN Reason: NAUSEA Oxycodone HCl (Oxyir) 5 mg PO Q4H PRN PRN PRN Reason: Pain Score 6-10/10 Last Admin: 12/05/19 02:32 Dose: 5 mg Documented by: Polyethylene Glycol (Miralax) 17 gm PO DAILY [facility] Last Admin: 12/06/19 09:51 Dose: 17 gm Documented by: Potassium Chloride (K-Dur) [facility] Last Admin: 12/06/19 09:50 Dose: 10 meq Documented by: Senna/Docusate Sodium (Senokot-S, Rachana-Colace) 1 tablet PO DAILY PRN PRN PRN Reason: CONSTIPATION Last Admin: 12/05/19 02:32 Dose: 1 tablet Documented by: Sodium Chloride () 10 - 40 ml IV UD PRN PRN Reason: SALINE FLUSH Last Admin: 12/06/19 08:19 Dose: 10 ml Documented by: STROKE Vital Signs/Narrative: Vital Signs Temp Pulse Resp BP Pulse Ox 12/06/19 10:00 91 12/06/19 09:56 99 173/90 H 12/06/19 07:48 99.1 F 99 20 H 173/90 H 93 Medical Necessity - Tobacco Use Smoking Status: Current every day smoker Tobacco Use: Non-smoker Assessment/Plan All Active Problems (Last Reviewed 01/20/19 @ 10:08 by Katie Torres) Ischemia of right lower extremity (Acute) Injury of right common femoral artery (Acute) Postoperative wound dehiscence (Acute) COPD exacerbation (Acute) Hx of tonsillectomy (Acute) Hx of bladder repair surgery (Acute) History of partial hysterectomy (Acute) History of lumpectomy of right breast (Acute) History of right-sided carotid endarterectomy (Acute) Neurogenic bladder (Acute) Urinary retention (Acute) Neurogenic bladder (Acute) Urge incontinence (Acute) Nocturia (Acute) Intertrochanteric fracture of left hip (Acute) 1. Mild COPD exacerbation - wheezing resolved. no hypoxia. continue steroids, aerosols, spirometer. res penal neg, rapid flu/rsv neg. 2. Intractable back pain, debility, inability to ambulate 2/2 recent fall, compression fractures - PTOT. 2-3 assist. insisting on home, but unsafe for home. 3. Hyponatremia, hypokalemia, hypomag, 2/2 poor po intake, nausea vomiting - improved. replete k again. mag now normal, phos normal. 4. HTN -elevated. hold hctz given hyponatremia. on losartan and norvasc. started on metoprolol. 5. Neurogenic bladder - has bladder stimulator. 6. PAD - prior stenting. continue asa/statin/plavix/norvasc 7. Constipation - prn's ordered 8. HLD - statin 9. DMt2 - hold metformin, provide accuchecks/SSI DVT ppx: lovenox DC Planning: likely needs SNF. This patient was seen by Rico Luna PA-C under the supervision of Dr. Wagner <Griselda Wagner - Last Filed: 12/06/19 14:52> Vitals/I&O's: Vital Signs Temp Pulse Resp BP Pulse Ox 99.1 F 86 18 150/81 H 92 12/06/19 12:00 12/06/19 14:00 12/06/19 12:00 12/06/19 12:00 12/06/19 13:29 Oxygen Flow Rate (L/min) 1 Oxygen Delivery Method Room Air Weight: 166 lb 7.184 oz Body Mass Index (BMI) 28.5 Finger Stick Blood Glucose 156 Intake and Output for Last 24 Hours 12/04/19 12/05/19 12/06/19 23:59 23:59 23:59 Intake Total 500 / 500 3738.25 / 3978.25 2425.75 / 2425.75 Output Total 1350 / 1900 1250 / 1250 Balance 500 / 0 2388.25 / 2078.25 1175.75 / 1175.75 Microbiology Past 72 Hours 12/04/19 19:15 Mucosa - Nasopharyngeal Respiratory Panel (PCR) - Final 12/04/19 14:15 Nasal Secretion Rapid RSV (DFA) - Final 12/04/19 14:15 Mucosa - Nose Influenza Types A,B Direct FA (GARY) - Final Laboratory Results 12/05/19 06:13: POC Glucose 189 H 12/05/19 16:03: POC Glucose 161 H 12/05/19 22:26: POC Glucose 158 H 12/06/19 05:13: Sodium 134 L, Potassium 3.4 L, Chloride 97 L, Carbon Dioxide 30.0, Anion Gap 7, BUN 15, Creatinine 0.55, Estim Creat Clear Calc 45.20, Est GFR (MDRD) Af Amer 142, Est GFR (MDRD) Non-Af 117, BUN/Creatinine Ratio 27.5 H, Glucose 166 H, Calcium 8.8, Magnesium 2.1 12/06/19 06:29: POC Glucose 174 H 12/06/19 11:27: POC Glucose 157 H Current Medications Acetaminophen (Tylenol) 650 mg PO Q6H PRN PRN PRN Reason: Pain Score 1-10/10 Albuterol Sulfate (Ventolin Aerosols) 2.5 mg INHALATION Q4H PRN PRN PRN Reason: SOB &/OR WHEEZING Albuterol/Ipratropium (Duoneb) 3 ml INHALATION Q4HWA.RT [facility] Last Admin: 12/06/19 10:50 Dose: 3 ml Documented by: Amlodipine Besylate (Norvasc) 10 mg PO DAILY [facility] Last Admin: 12/06/19 09:52 Dose: 10 mg Documented by: Aspirin (Aspirin) 325 mg PO DAILY@0800 [facility] Last Admin: 12/06/19 09:50 Dose: 325 mg Documented by: Atorvastatin Calcium (Lipitor) 10 mg PO QHS [facility] Last Admin: 12/05/19 22:30 Dose: 10 mg Documented by: Clopidogrel Bisulfate (Plavix) 75 mg PO DAILY [facility] Last Admin: 12/06/19 09:52 Dose: 75 mg Documented by: Enoxaparin Sodium (Lovenox) 40 mg SC DAILY [facility] Last Admin: 12/06/19 09:51 Dose: 40 mg Documented by: Glucagon () 1 mg IM .X1 PRN PRN Reason: Hypoglycemia Dextrose (Dextrose 10%-Water) 250 mls @ 999 mls/hr IV .Q16M PRN; Protocol PRN Reason: HYPOGLYCEMIA Sodium Chloride () 250 mls @ 15 mls/hr IV .[id number] PRN PRN Reason: Saline Flush Last Infusion: 12/06/19 06:37 Dose: Infused Documented by: Insulin Human Lispro (Humalog Kwikpen (Bkc)) 0 unit SC [facility]; Protocol Last Admin: 12/06/19 12:43 Dose: 1 u Documented by: Labetalol HCl (Trandate) 10 mg IV Q4H PRN PRN PRN Reason: high bp Last Admin: 12/06/19 08:19 Dose: 10 mg Documented by: Lidocaine (Lidoderm Patch) 1 patch TOPICAL QHS [facility]; Protocol Last Admin: 12/05/19 22:28 Dose: 1 patch Documented by: Losartan Potassium (Cozaar) 100 mg PO DAILY [facility] Last Admin: 12/06/19 09:51 Dose: 100 mg Documented by: Magnesium Hydroxide (Milk Of Magnesia) 30 ml PO DAILY PRN PRN PRN Reason: Constipation Metformin HCl (Glucophage) 500 [facility] Methylprednisolone (Solu-Medrol) 40 mg IV Q8 [facility] Last Admin: 12/06/19 14:18 Dose: 40 mg Documented by: Metoprolol Tartrate (Lopressor (Beta Orville)) 12.5 mg PO BID [facility] Last Admin: 12/06/19 09:56 Dose: 12.5 mg Documented by: Morphine Sulfate () 1 mg IV Q3H PRN PRN PRN Reason: Pain Score 6-10/10 Nystatin (Mycostatin Powder) 1 applic TOPICAL BID [facility]; Protocol Last Admin: 12/06/19 09:51 Dose: 1 applic Documented by: Ondansetron HCl (Zofran) 4 mg IV Q6H PRN PRN PRN Reason: NAUSEA Oxycodone HCl (Oxyir) 5 mg PO Q4H PRN PRN PRN Reason: Pain Score 6-10/10 Last Admin: 12/06/19 12:45 Dose: 5 mg Documented by: Polyethylene Glycol (Miralax) 17 gm PO DAILY [facility] Last Admin: 12/06/19 09:51 Dose: 17 gm Documented by: Potassium Chloride (K-Dur) 10 meq PO DAILYCM [facility] Last Admin: 12/06/19 09:50 Dose: 10 meq Documented by: Senna/Docusate Sodium (Senokot-S, Rachana-Colace) 1 tablet PO DAILY PRN PRN PRN Reason: CONSTIPATION Last Admin: 12/05/19 02:32 Dose: 1 tablet Documented by: Sodium Chloride () 10 - 40 ml IV UD PRN PRN Reason: SALINE FLUSH Last Admin: 12/06/19 14:18 Dose: 10 ml Documented by: STROKE Vital Signs/Narrative: Vital Signs Temp Pulse Resp BP Pulse Ox Pulse Ox 12/06/19 14:00 86 12/06/19 13:29 92 12/06/19 12:45 92 12/06/19 12:00 99.1 F 92 18 150/81 H 92 12/06/19 10:50 95 20 H Assessment/Plan patient seen by Rico Luna PA-C under my supervision Patient seen and examined. She does not feel short of breath today. Review of symptoms otherwise negative. Is now on room air. o/e: Vital Signs Height 5 ft 4 in Weight: 166 lb 7.184 oz Weight in Pounds 166.4 lbs Pulse Ox [AMBULATING on Room 92 Air] Pulse Ox 92 Temperature 99.1 F Pulse Rate 86 Respiratory Rate 18 Blood Pressure [BP] 141/66 Blood Pressure 150/81 Blood Pressure Position [BP] Semi-Fowlers Blood Pressure Position Sitting General: Alert, Oriented x3, Cooperative HEENT: Atraumatic, PERRLA, EOMI, Normocephalic Neck: Supple, No JVD, Negative Carotid Bruits Lungs: breath sounds diminished bibasally, no crackles. No wheezing or rhonchi Cardiovascular: Regular rate, No murmurs Abdomen: Bowel Sounds Present, Soft, Non Tender Extremities: No edema, Capillary Refill Less than 3 Seconds Skin: No rashes, No breakdown Musculoskeletal: No Tenderness to Palpation of Joints or Extremities Neurological: Cranial nerves II-XII grossly intact Psych/Mental Status: Normal Affect, Appropriate, Alert and oriented to time, place, person, mood and affect Plan is to continue breathing treatments and bronchodilators as well as IV Solu-Medrol. Potassium is 3.4 today so we will replace and monitor. Patient is on room air. PT OT on board. on tylenol, oxycodone and morphine prn for pain. Rest as per Rico Luna PA-C's note, which I have reviewed and endorsed. Inpatient E&M: [id number] Subs Hosp L2
[2019-12-06 11:31] LABS: Bedside Glucose 157 mg/dL (70-110)
[2019-12-06] MEDS: oxyCODONE 5 MG Tablet PO ×2 (12:45→22:09)
--- NOTE | 2019-12-06 13:36 | NURSING ---
SPOKE WITH PT'S DAUGHTER/POASANDRA - REQUESTING PT UPDATE
--- NOTE | 2019-12-06 14:17 | CASEMGMT ---
[phone]. Patient is current with PT/OT will add nursing at discharge. CM to [facility].
--- NOTE | 2019-12-06 14:58 | CHAPLAIN ---
Type of Pastoral Visit _x__ Initial Visit ___ Follow-up Visit ___ On-call Visit ___ General Patient Visit ___ Spiritual Assessment ___ Family Conference ___ Bereavement ___ Rapid Response ___ Code Blue ___ Other (describe below) Pastoral Care Referral From _x__ Patient ___ Family _x__ Nurse ___ Physician ___ Passenger Service Manager ___ Materials And Processes Manager ___ Other (describe below) Sacrament/Intervention _x__ Active listening ___ Anointing ___ Gnosticism ___ Bereavement ___ Communion ___ Neda exploration ___ ___ Life review _x__ Prayer ___ Reconciliation ___ Sacrament of Sick _x__ Supportive presence ___ Wedding ___ Other (describe below) Pastoral Comments
--- NOTE | 2019-12-06 15:38 | NURSING ---
pt resting quietly in recliner @ bs, eyes closed, resp easy
--- NOTE | 2019-12-06 16:14 | NURSING ---
pt placed on o2 1l nc
[2019-12-06 16:21] LABS: Bedside Glucose 137 mg/dL (70-110)
[2019-12-06] MEDS: metFORMIN HCl 500 MG Tablet PO (17:02)
[2019-12-06] MEDS: Atorvastatin Calcium 10 MG Tablet PO (21:56)
[2019-12-06] MEDS: Lidocaine 5% Patch 1 PATCH TOPICAL (21:57)
[2019-12-06 23:21] LABS: Bedside Glucose 139 mg/dL (70-110)
[2019-12-07] VITALS (8 sets, daily range): BP systolic 138–153; BP diastolic 75–87; PULSE 64–90; RESP 16–19; TEMP 36.6–36.9; O2SAT 93–95
[2019-12-07] MEDS: 0.9% Saline Lock 10 ML Syringe IV ×2 (01:58→05:49)
[2019-12-07] MEDS: Ondansetron 4 MG/2 ML Vial IV (01:58)
[2019-12-07] MEDS: Insulin Lispro 100 UNIT/ML INSULN.PEN SC ×2 (05:50→11:11)
[2019-12-07] MEDS: Ipratropium/Albuterol Sulfate 3 ML AMPUL.NEB INHALATION ×2 (07:19→11:14)
[2019-12-07] MEDS: metFORMIN HCl 500 MG Tablet PO (08:31)
[2019-12-07] MEDS: Aspirin 325 MG Tablet PO (08:31)
--- NOTE | 2019-12-07 09:36 | CASEMGMT ---
Addendum entered by Jennifer Newman 12/07/19 11:34: Pt is at 91% on room air doesn't need oxygen at discharge. Discharge order is in. CHRISSY placed a call to pt's daughter Chloé and updated her on discharge. Chloé states she will likely be at [facility] within the hour to transport pt home. CHRISSY updated RN. RN NIMA to fax discharge paperwork to [facility]. Addendum entered by Jennifer Newman 12/07/19 10:37: CHRISSY spoke with RN. Pt will not go home with Purewick. CHRISSY placed a call back to pt's daughter Chloé and updated her that pt's Purewick will be discontinued and pt will not go home with one. Chloé states she understands that but was informed by Dr. Taylor that the hospital could write a script for pt. CHRISSY spoke with RN NIMA, since pt is not going home with Purewick [facility] will not write order for it and pt will either need to either wear diapers or use bedside commode. Chloé states understanding, states she will be available to transport pt home. CHRISSY updated physician. CHRISSY spoke with RN, pt will need to be tested to determine if pt qualifies for home oxygen. Addendum entered by Jennifer Newman 12/07/19 10:02: CHRISSY spoke with RN, OT was in to see pt today. Pt was min assist of 1 to get from bed to chair with a wheeled walker. CHRISSY placed a call to pt's Manjeet. Manjeet asked this worker to call his daughter Chloé. CHRISSY placed a call to pt's daughter Chloé. Chloé states pt's Manjeet was already assisting pt at home with transfers and ADLs and was assisting pt to the bathroom. CHRISSY informed Chloé that the recommendation is for pt to go to SNF for short term rehabilitation before returning home. Chloé states absolutely not and I'll tell ya why. Chloé states all the SNF around [place] are terrible, with the COVID going around it would be a sentence for pt, and pt is already getting PT/OT two time a week through [facility]. Chloé refuses to allow pt to go to SNF. CHRISSY updated Chloé that pt was not agreeable either to SNF. CHRISSY updated Chloé that pt will likely be discharged home today then. Chloé asked about pt's Purewick External Catheter and if pt will be returning home at discharge with it and if insurance would cover it. Chloé states she called pt's insurance and insurance stated they would need CPST code. Chloé states she also saw that [facility] will sell them. CHRISSY informed Chloé that this worker is not sure but will ask RN and RN CM. CHRISSY also informed Chloé that pt is currently on 1-2 liters of oxygen so pt will need to be tested for home oxygen and if pt qualifies for home oxygen pt will need to go home with home oxygen. Chloé states understanding. SW spoke with RN NIMA. Per RN CM typically pt's do not go home with Purewick External Catheter as pt's should be able to get up and move to go to the bathroom or use bedside commode and is not sure about insurance or if [facility] provide that equipment. SW will speak with RN. Original Note: Social Work Note SW reviewed handoff communication. Pt was assist of two for transfers. SW in to speak with pt. SW introduced self and role at [facility]. Pt is alert and orientated x3, is very hard of hearing. Pt has hearing aides in but still very hard of hearing. Pt states I want to go home. SW informed pt that it took two people last night to transfer pt. SW asked pt about help in the home. Pt confirms she lives with her . Pt denied anyone else living in the home. SW informed pt that her is only one person and it took two people last night to move pt. Pt states well my is a big jada. SW informed pt that PT/OT will work with pt today and then can see how pt does today with PT/OT. SW asked pt if this worker could call her , and pt gave this worker permission to do so. Pt also gave this worker permission to call her daughter as well. Pt is currently on oxygen, SW asked pt about home oxygen. Pt states she doesn't have oxygen at home and doesn't want home oxygen. Pt states oxygen does't help me anyway. SW informed pt that she would need to be tested to see if she qualifies for home oxygen. SW will wait for PT/OT to determine how much assistance pt needs today. Will also monitor for home oxygen. Plan: KELECHI Newman KENNEL MANAGER, HEAD PORTER
[2019-12-07] MEDS: Nystatin Powder 15gm Bottle 1 APPLIC TOPICAL (10:32)
[2019-12-07] MEDS: Metoprolol Tartrate 25 MG Tablet 12.5 MG PO (10:33)
[2019-12-07] MEDS: Losartan Potassium 100 MG Tablet PO (10:34)
[2019-12-07] MEDS: amLODIPine 10 MG Tablet PO (10:35)
[2019-12-07] MEDS: Clopidogrel Bisulfate 75 MG Tablet PO (10:35)
[2019-12-07] MEDS: Enoxaparin 40 MG/0.4 ML Syringe SC (10:35)
[2019-12-07] MEDS: Polyethylene Glycol 3350 17 GM PACKET PO (10:35)
--- NOTE | 2019-12-07 11:26 | PCM.DC ---
- Discharge Diagnoses Current Active Problems: Current Active and Chronic Problems (Last Reviewed 01/20/19 @ 10:08 by Katie Torres) COPD exacerbation (Acute) Compression fracture (Chronic) Debility (Chronic) You will use the following diet at home:: Cardiac Your food should be the consistency of: Regular Your liquids should be the consistency of: Regular/Thin Discharge Activity: Return to Normal Activity, Use Walker Weight Bearing Status: Weight bearing as tolerated Call your doctor if you observe: Shortness of breath, Uncontrolled pain Instructions: What Is COPD?, Treatments for COPD, Relieving Back Pain, Back Safety: Lifting, Back Safety: Sitting, Back Safety: Standing, Back Safety: Turning Allergies/Adverse Reactions: Allergies amoxicillin [From Augmentin] Allergy (Verified 12/04/19 14:32) Rash atorvastatin [From Lipitor] Allergy (Verified 05/06/19 17:27) Other clavulanic acid [From Augmentin] Allergy (Verified 12/04/19 14:32) Rash gabapentin Allergy (Verified 12/04/19 14:32) Nausea quinapril [From Accupril] Allergy (Verified 05/06/19 17:27) Rash Medications to take at Discharge Amlodipine Besylate [Norvasc] 10 mg PO DAILY 06/16/18 Hydrochlorothiazide [Hctz] 12.5 mg PO DAILY 06/16/18 Losartan Potassium [Cozaar] 100 mg PO DAILY 06/16/18 Naproxen 500 mg PO QHS 09/08/18 Rosuvastatin Calcium 5 mg PO QHS 09/08/18 acetaminophen 500 mg tablet 500 mg PO Q6H PRN 01/20/19 docusate sodium 100 mg capsule 100 mg PO DAILY 01/20/19 oxycodone 5 mg tablet 5 mg PO Q4H PRN tab 01/20/19 polyethylene glycol 3350 17 gram oral powder packet 17 g PO DAILY 01/20/19 Aspirin 325 mg PO DAILY@0800 tablet 02/11/19 Atorvastatin Calcium 10 mg PO QHS 02/11/19 Clopidogrel Bisulfate [Plavix] 75 mg PO DAILY 02/12/19 Metformin HCl 500 mg PO BID 02/12/19 predniSONE tablet 40 mg PO DAILY #10 tab 12/07/19 The following prescriptions were given: predniSONE tablet 40 mg PO DAILY #10 tab Transmission Status: Pending to [facility] Primary Care Physician: Cabrera Taylor III, MD [Primary Care Provider] - Please follow up with your Primary Care Physician in: 1-2 weeks Test Results: Test results from this visit will be discussed in further detail at your follow-up appointment, if applicable. Proposed Discharge Date: 12/07/19
--- NOTE | 2019-12-07 11:27 | DS.PCM_ITS ---
Discharge Date and Diagnosis Date of Admission: 12/04/19 Date of Discharge: 12/07/19 - Primary Discharge Diagnosis Active and Suspected Problems (Last Reviewed 01/20/19 @ 10:08 by Katie Torres) COPD exacerbation (Acute) intractable back pain - Secondary Discharge Diagnosis Chronic Problems (Last Reviewed 01/20/19 @ 10:08 by Katie Torres) Ulcer of right lower leg (Chronic) Ulcer of right groin with fat layer exposed (Chronic) Wound of right lower extremity (Chronic) Right lower extremity with fat layer exposed Compression fracture (Chronic) Debility (Chronic) Hx TIA/stroke w/o resid (Chronic) Diabetes (Chronic) HTN (hypertension) (Chronic) Chronic ulcer of left heel with fat layer exposed (Chronic) Decubitus ulcer of left heel, stage 4 (Chronic) PAD (peripheral artery disease) (Chronic) Tobacco abuse (Chronic) Hospital Course and Treatment Imaging Results: Diagnostic Data Chest X-Ray 12/04/19 13:57 IMPRESSION: No airspace consolidation or pleural effusion. Electronically Signed: Rudi Correia MD (Brooks) at 15:44 EDT , Service support , Lumbar Spine X-Ray 12/04/19 13:59 IMPRESSION: L1 and L2 compression fractures of indeterminate age. Recommend lumbar spine CT and possible bone scan for further characterization, if clinically indicated. Electronically Signed: Rudi Correia MD (Brooks) at 15:44 EDT , Service support , Thoracic Spine X-Ray 12/04/19 13:59 IMPRESSION: 1. Lower thoracic and upper lumbar compression fractures of indeterminate age. Advise correlating with localized clinical palpation and MRI, if clinically warranted, for further characterization. Electronically Signed: Rudi Correia MD (Brooks) at 15:43 EDT , Service support , ADDENDUM: 12/04/19 1604 Operations: None, - - Date of Procedure: 09/08/18 Primary Surgeon/Physician: Caden Kapoor DO conference interpreter: Michael Del Valle Pre-Operative Diagnosis: Comminuted left hip fracture, imtertrochanteric with subtrochanteric extension Post-Operative Diagnosis: same Surgery/Procedure Performed:: ORIF left hip with Intertan nail Description of Surgical Findings:: see op note Estimated Blood Loss: 100cc Specimen's removed: none Type of Anesthesia:: General ASA Class: ASA3 Plus Emergency 2018: Abdominal pelvic left lower extremity arteriogram with left superficial femoral angioplasty and focal prot?g? stenting. Left common iliac angioplasty and stenting. February 11, 2019: Abdominal pelvic right lower extremity arteriogram with right common femoral artery angioplasty February 11, 2019 right iliofemoral endarterectomy with bovine patch angioplasty for control of hemorrhage and subsequent thrombosis Procedures: None Summary of Care Provided: The patient is a 69 year old F with a past medical history as outlined admitted through the ED on 12/04/2019 with a complaint of shortness of breath and back pain. Patient had a mechanical fall a few days prior to admission and subsequently had severe back pain and had been unable to walk. Subsequently started having nausea and vomiting but had no diarrhea. She also became more short of breath and wheezy and so she was admitted to the hospital. Patient was also not able to ambulate very well. Was admitted and managed for intractable low back pain acute COPD exacerbation. He also had hypokalemia and hyponatremia which resolved with IV fluid administration and potassium supplementation. X- rays of the lumbar and thoracic spine showed L1 and L2 compression fractures and lower thoracic fractures of indeterminate age. Physical therapy evaluated patient and she was able to ambulate with a walker. Shortness of breath improved and she was discharged home on 12/07/2019. Though we felt that patient would benefit from placement, patient and her family were insistent that patient should be discharged home as they did not think that she needed any help at home. She did not qualify for home oxygen as with ambulation her saturation was 92%. She was discharged with a prescription for p.o. prednisone 40 mg daily for 5 days. Back pain is also improved at time of discharge and should follow-up with her primary care doctor within 1 week. Patient seen and examined prior to discharge. Stated that she wanted to go home and had no complaints. She denied fever, chills, shortness of breath, palpitations, dizziness, nausea vomiting. Review of systems otherwise negative. Labs and vitals reviewed. Home medication reviewed and reconciled. o/e: Vital Signs Height 5 ft 4 in Weight: 166 lb 7.184 oz Weight in Pounds 166.4 lbs Pulse Ox [AMBULATING on Room 92 Air] Pulse Ox 93 Temperature 98.4 F Pulse Rate 90 Respiratory Rate 18 Blood Pressure [BP] 141/66 Blood Pressure 138/75 Blood Pressure Position [BP] Semi-Fowlers Blood Pressure Position Semi-Fowlers [] General: Alert, Oriented x3, Cooperative HEENT: Atraumatic, PERRLA, EOMI, Normocephalic Neck: Supple, No JVD, Negative Carotid Bruits Lungs: breath sounds diminished bibasally, no crackles. No wheezing or rhonchi Cardiovascular: Regular rate, No murmurs Abdomen: Bowel Sounds Present, Soft, Non Tender Extremities: No edema, Capillary Refill Less than 3 Seconds Skin: No rashes, No breakdown Musculoskeletal: No Tenderness to Palpation of Joints or Extremities Neurological: Cranial nerves II-XII grossly intact Psych/Mental Status: Normal Affect, Appropriate, Alert and oriented to time, place, person, mood and affect Plan is for DC home today. - Physical Exam Vitals/I&O's: Vital Signs Temp Pulse Resp BP Pulse Ox 98.4 F 83 16 138/75 H 93 12/07/19 08:09 12/07/19 10:33 12/07/19 08:09 12/07/19 08:09 12/07/19 08:09 Oxygen Flow Rate (L/min) 2 Oxygen Delivery Method Nasal Cannula Weight: 166 lb 7.184 oz Body Mass Index (BMI) 28.5 Finger Stick Blood Glucose 156 Intake and Output for Last 24 Hours 12/05/19 12/06/19 12/07/19 23:59 23:59 23:59 Intake Total 3738.25 / 3978.25 2905.75 / 2905.75 700 / 700 Output Total 1350 / 1900 1999 / 1999 1000 / 1000 Balance 2388.25 / 2078.25 905.75 / 905.75 -300 / -300 Microbiology Past 72 Hours 12/04/19 19:15 Mucosa - Nasopharyngeal Respiratory Panel (PCR) - Final 12/04/19 14:15 Nasal Secretion Rapid RSV (DFA) - Final 12/04/19 14:15 Mucosa - Nose Influenza Types A,B Direct FA ([facility]) - Final Laboratory Results 12/06/19 11:27: POC Glucose 157 H 12/06/19 16:10: POC Glucose 137 H 12/06/19 21:46: POC Glucose 139 H 12/07/19 11:00: Sodium Pending, Potassium Pending, Chloride Pending, Carbon Dioxide Pending, Anion Gap Pending, BUN Pending, Creatinine Pending, Est GFR (MDRD) Af Amer Pending, Est GFR (MDRD) Non-Af Pending, BUN/Creatinine Ratio Pending, Glucose Pending, Calcium Pending Current Medications Acetaminophen (Tylenol) 650 mg PO Q6H PRN PRN PRN Reason: Pain Score 1-10/10 Albuterol Sulfate (Ventolin Aerosols) 2.5 mg INHALATION Q4H PRN PRN PRN Reason: SOB &/OR WHEEZING Albuterol/Ipratropium (Duoneb) 3 ml INHALATION Q4HWA.RT [facility] Last Admin: 12/07/19 11:14 Dose: 3 ml Documented by: Amlodipine Besylate (Norvasc) 10 mg PO DAILY [facility] Last Admin: 12/07/19 10:35 Dose: 10 mg Documented by: Aspirin (Aspirin) 325 mg PO DAILY@0800 [facility] Last Admin: 12/07/19 08:31 Dose: 325 mg Documented by: Atorvastatin Calcium (Lipitor) 10 mg PO QHS [facility] Last Admin: 12/06/19 21:56 Dose: 10 mg Documented by: Clopidogrel Bisulfate (Plavix) 75 mg PO DAILY [facility] Last Admin: 12/07/19 10:35 Dose: 75 mg Documented by: Enoxaparin Sodium (Lovenox) 40 mg SC DAILY [facility] Last Admin: 12/07/19 10:35 Dose: 40 mg Documented by: Glucagon () 1 mg IM .X1 PRN PRN Reason: Hypoglycemia Dextrose (Dextrose 10%-Water) 250 mls @ 999 mls/hr IV .Q16M PRN; Protocol PRN Reason: HYPOGLYCEMIA Sodium Chloride () 250 mls @ 15 mls/hr IV .R40A89M PRN PRN Reason: Saline Flush Last Infusion: 12/06/19 06:37 Dose: Infused Documented by: Insulin Human Lispro (Humalog Baltazar (Bkc)) 0 unit SC ACHS [facility]; Protocol Last Admin: 12/07/19 11:11 Dose: 3 u Documented by: Labetalol HCl (Trandate) 10 mg IV Q4H PRN PRN PRN Reason: high bp Last Admin: 12/06/19 08:19 Dose: 10 mg Documented by: Lidocaine (Lidoderm Patch) 1 patch TOPICAL QHS [facility]; Protocol Last Admin: 12/06/19 21:57 Dose: 1 patch Documented by: Losartan Potassium (Cozaar) 100 mg PO DAILY [facility] Last Admin: 12/07/19 10:34 Dose: 100 mg Documented by: Magnesium Hydroxide (Milk Of Magnesia) 30 ml PO DAILY PRN PRN PRN Reason: Constipation [facility] Last Admin: 12/07/19 08:31 Dose: 500 mg Documented by: Methylprednisolone (Solu-Medrol) 40 mg IV Q8 [facility] Last Admin: 12/07/19 05:49 Dose: 40 mg Documented by: Metoprolol Tartrate (Lopressor (Beta [place])) 12.5 mg PO BID [facility] Last Admin: 12/07/19 10:33 Dose: 12.5 mg Documented by: Morphine Sulfate () 1 mg IV Q3H PRN PRN PRN Reason: Pain Score 6-10/10 Nystatin (Mycostatin Powder) 1 applic TOPICAL BID [facility]; Protocol Last Admin: 12/07/19 10:32 Dose: 1 applic Documented by: Ondansetron HCl (Zofran) 4 mg IV Q6H PRN PRN PRN Reason: NAUSEA Last Admin: 12/07/19 01:58 Dose: 4 mg Documented by: Oxycodone HCl (Oxyir) 5 mg PO Q4H PRN PRN PRN Reason: Pain Score 6-10/10 Last Admin: 12/06/19 22:09 Dose: 5 mg Documented by: Polyethylene Glycol (Miralax) 17 gm PO DAILY [facility] Last Admin: 12/07/19 10:35 Dose: 17 gm Documented by: Potassium Chloride (K-Dur) [facility] Last Admin: 12/07/19 08:31 Dose: 10 meq Documented by: Senna/Docusate Sodium (Senokot-S, Rachana-Colace) 1 tablet PO DAILY PRN PRN PRN Reason: CONSTIPATION Last Admin: 12/05/19 02:32 Dose: 1 tablet Documented by: Sodium Chloride () 10 - 40 ml IV UD PRN PRN Reason: SALINE FLUSH Last Admin: 12/07/19 05:49 Dose: 10 ml Documented by: Discharge Diet: Low fat/ Low Cholesterol Discharge Activity: Return to Normal Activity, Use Walker Weight Bearing Status: Weight bearing as tolerated Call your doctor if you observe: Shortness of breath, Uncontrolled pain Home Medications: Medications to take at Discharge Amlodipine Besylate [Norvasc] 10 mg PO DAILY 06/16/18 Hydrochlorothiazide [Hctz] 12.5 mg PO DAILY 06/16/18 Losartan Potassium [Cozaar] 100 mg PO DAILY 06/16/18 Naproxen 500 mg PO QHS 09/08/18 Rosuvastatin Calcium 5 mg PO QHS 09/08/18 acetaminophen 500 mg tablet 500 mg PO Q6H PRN 01/20/19 docusate sodium 100 mg capsule 100 mg PO DAILY 01/20/19 oxycodone 5 mg tablet 5 mg PO Q4H PRN tab 01/20/19 polyethylene glycol 3350 17 gram oral powder packet 17 g PO DAILY 01/20/19 Aspirin 325 mg PO DAILY@0800 tablet 02/11/19 Atorvastatin Calcium 10 mg PO QHS 02/11/19 Clopidogrel Bisulfate [Plavix] 75 mg PO DAILY 02/12/19 Metformin HCl 500 mg PO BID 02/12/19 predniSONE tablet 40 mg PO DAILY #10 tab 12/07/19 Following Prescrptions Were Given to Patient: predniSONE tablet 40 mg PO DAILY #10 tab Transmission Status: Sent to [facility] Primary Care Physician: Cabrera Taylor III, MD [Primary Care Provider] - Please follow up with your Primary Care Physician in: 1-2 weeks Patient Instructions: Relieving Back Pain, Back Safety: Lifting, Back Safety: Sitting, Back Safety: Standing, Back Safety: Turning, What Is COPD?, Treatments for COPD Disposition: Home Minutes spent on discharge:: 40 Patient Condition:: Fair Medical Necessity - Tobacco Use Smoking Status: Current every day smoker Tobacco Use: Non-smoker Meaningful Use Info Meaningful Use Diagnoses (Choose all that apply): None applicable Inpatient E&M: 61381 Disch Hosp
[2019-12-07 11:37] LABS: Anion Gap 7 (5-15); BUN 20 mg/dL (7-18); BUN/Creat Ratio 23.2 RATIO (10-20); Calcium,Total 9.3 mg/dL (8.5-10.1); Chloride 95 mmol/L (98-107); Creatinine, Serum 0.86 mg/dL (0.55-1.02); EST Glomerular Filtration Rate 69 mL/min (>60); Est Glom Filt Rate - Afr Amer 84 mL/min (>60); Estimated Creatinine Clearance 52.56 ml/min; Glucose 217 mg/dL (74-106); Potassium 4.1 mmol/L (3.5-5.1); Sodium Level 131 mmol/L (136-145)
[2019-12-07 11:46] LABS: Bedside Glucose 250 mg/dL (70-110)
--- NOTE | 2019-12-07 12:35 | CASEMGMT ---
SCOOBY CM Note: DC instructions and resume order faxed to [facility]. Call to Alo @ [facility] to notify of dc today. Lucero GREGORIO RN ACM
[2019-12-07 14:34] LABS: Vitamin D 1,25-Dihydroxy 65.2 pg/mL (19.9-79.3)
[2019-12-08 00:15] LABS: Bedside Glucose 168 mg/dL (70-110)
--- NOTE | 2019-12-08 14:40 | CASEMGMT ---
SCOOBY HERRING Discharge Follow-up Phone Call: JOSE DANIELJose: Harshad Strata: 3 Call Date: 12/08/19 Discharge Date: 12/07/19 Time of Call: 1435 Duration: 3 min Admitting Diagnosis: COPD exacerbation, intractable pain SCOOBY HERRING complete follow-up phone call after recent hospitalization. Patient was unable to speak on phone due to hard of hearing, sister states patient was doing well and had no questions regarding discharge planning. No further questions or concerns at this time.
--- NOTE | 2019-12-08 14:46 | CASEMGMT ---
SCOOBY CM Note: Call received from Sandy @ [facility] that they had discharged pt on the day she came to [facility]. Needed new order and H/P. Information including new [facility] order faxed to Skylar @ . They will contact pt today for start of care. Lucero GREGORIO RN ACM
== END 2019-12-07 13:20 | disposition home or self-care (01) | DRG 191 ==
LOC: ED 14:17 → MS3 17:29
PROVIDERS: Physician Assistant; Admitting Provider Internal Medicine; Emergency Provider Emergency Medicine; PCP Family Medicine; Visit Provider Student in an Organized Health Care Education/Training Program
DX: J44.1 Chronic obstructive pulmonary disease with (acute) exacerbation (principal); E87.1 Hypo-osmolality and hyponatremia; M80.88XA Other osteoporosis with current pathological fracture, vertebra(e), initial encounter for fracture; E87.6 Hypokalemia; I10 Essential (primary) hypertension; N31.9 Neuromuscular dysfunction of bladder, unspecified; Z79.84 Long term (current) use of oral hypoglycemic drugs; F17.200 Nicotine dependence, unspecified, uncomplicated; E11.51 Type 2 diabetes mellitus with diabetic peripheral angiopathy without gangrene; Z86.73 Personal history of transient ischemic attack (TIA), and cerebral infarction without residual deficits
CPT/HCPCS: 36415; 71045; 72072; 72100; 80048; 80053; 81001; 82652; 82962; 83690; 83735; 83880; 84100; 84484; 85025; 85652; 86140; 87633; 87804; 87807; 93005; 94640; 97110; 97116; 97162; 97167; 97530; 97535; 99251; 99285; 99406; J7030; J7040; J7050; A4216; G0463; J2405

== ENCOUNTER 2020-02-13 10:43 | Day surgery (SDC) | payer MEDICARE, SELFPAY ==
[2019-12-04 18:10] VITALS: BMI 28.5
[2020-02-13 11:04] VITALS: BP 131/89; PULSE 116; RESP 18; TEMP 36.3; O2SAT 91; BMI 28.3
[2020-02-13] MEDS: Lactated Ringers 1,000 ML 100 ML IV (11:24)
[2020-02-13 11:31] LABS: Bedside Glucose 114 mg/dL (70-110)
[2020-02-13] MEDS: Cefazolin 2 GM in 0.9% Normal Saline 100 ML IV (12:14)
[2020-02-13] MEDS: Bupivacaine Mpf 0.5% 30 ML VIAL (12:47)
--- NOTE | 2020-02-13 13:00 | RAD_ITS ---
CLINICAL HISTORY: Female, 69 years old. Chronic back pain. PROCEDURE: KYPHOPLASTY - L1 and L2 vertebrae. FLUOROSCOPY TIME (if supplied): (2 minutes and 12 seconds) minutes/seconds. 11 fluoroscopic images are obtained. TECHNIQUE: (All elements of maximal sterile barrier technique followed, including US elements as applicable) Under fluoroscopic guidance, the pain management physician performing kyphoplasty of the L1 and L2 vertebrae. RAD/Lumbar Spine 2 or 3 Views IMPRESSION: Successful vertebroplasty of the L1 and L2 vertebral bodies. Electronically Signed: Erick Damico, at 14:26 EDT , Service support ,
--- NOTE | 2020-02-13 13:00 | BON_PTH ---
PATIENT: TATIANA DICKEY [place] [facility] [place][id number] AGE/SX: 69/F ROOM: RE02/13/[address]: Dr. Ifeanyi Keenan MD : 1950 BED: DIS: 02/13/2020 SPEC #: [id number] RECD: 02/14/20 07:02 STATUS: JOÃO WILLEM #: [id number] TIANNA: 02/13/20 13:[address]: Ifeanyi Keenan DEPT: SURGICAL PATHOLOGY RECD BY: Mickey Bhat ENTERED: 02/14/20 09:37 SP TYPE: Bone OTHR DR: Dr. Cabrera Taylor III, MD Tissues: Vertebra, NOS Procedures: Surgery Specimen Level IV HEADER OPERATION: Kyphoplasty L1-L2 PRE-OP DIAGNOSIS: Compression fracture of lumbar spine TISSUE SUBMITTED: Body of L2 MICROSCOPIC DIAGNOSIS Body of L2, kyphoplasty: Fragments of blood clots with hematopoietic marrow showing trilineage hematopoiesis, clinically compression fracture of lumbar spine. See comment. CLAIRE:maame 02/15/20 COMMENT Correlation with clinical, radiologic findings and appropriate follow up are necessary. MICROSCOPIC DESCRIPTION Slides are reviewed. GROSS DESCRIPTION Received in fixative is one container labeled with the patient's name and designated body of L2. The specimen consists of multiple irregular fragments of dark mensah soft tissue that in aggregate measure 1 x 1 x <0.1 cm. The specimen is totally submitted in one cassette. / AM:maame 02/14/20 TC:5 CPT: 07562
[2020-02-13] MEDS: Bacitracin 500 UNITS/GM PACKET (13:25)
[2020-02-13 13:38] VITALS: BP 131/89; BP 146/89; PULSE 104; RESP 16; TEMP 36.9; O2SAT 93
[2020-02-13 13:45] VITALS: BP 131/89; BP 136/85; PULSE 108; RESP 16; O2SAT 93
[2020-02-13 13:50] VITALS: BP 131/89; BP 156/80; PULSE 107; RESP 16; O2SAT 92
[2020-02-13 13:58] VITALS: BP 131/89; BP 165/84; PULSE 95; RESP 16; TEMP 36.5; O2SAT 92
[2020-02-13 14:35] VITALS: BP 131/89
--- NOTE | 2020-02-13 14:57 | PCM.OPRPT ---
Report of Operation Date of Procedure: 02/13/20 Description of Surgical Findings:: PROCEDURES: 1. Joan balloon kyphoplasty at the L1 level and L2 level 2. Insertion of Joan HV-R bone cement under low pressure at the L1 and L2 Level 3. Bone biopsy at L2 4. Fluoroscopic guidance and interpretation of images PREOPERATIVE DIAGNOSES: Osteoporosis, compression fracture of L1 and L2 POSTOPERATIVE DIAGNOSES: Osteoporosis, compression fracture of L1 and L2 ANESTHESIA: MAC COMPLICATIONS: None BLOOD LOSS: Minimal PROCEDURE IN DETAIL: History and physical today was reviewed. Risks and benefits of procedure explained. The patient understood, agreed to procedure, informed consent was obtained. IV inserted per routine protocol. The patient was taken to the operating room, placed in the prone position with a pillow positioned underneath the chest. A 2 g of Ancef IV piggyback was infused per anesthesia. The upper and middle back area was prepped and draped in a sterile fashion using iodine x3. Under direct visualization with fluoroscopy with the C-arm, which brought into position on AP as well as lateral view at the L1 level., the L1 pedicle was then identified. In the view of the collapsed L1, a transpedicular approach to the vertebral body was appropriate. Starting on the right side at L1 level, an 11-gauge needle was advanced through the L1 pedicle through the junction of the pedicle and the vertebral body on the left side. Position was then confirmed on AP as well as lateral view. Following satisfactory placement of the needle to make sure it is further off the midline and interlaminar space. the 11-gauge trocar was advanced approximately 3 mm from the anterior cortex on the lateral view. AP and lateral images were then taken to verify position and trajectory of the needle. The introducer was then advanced through the pedicle. Once the trocar was at the junction of the pedicle and the vertebral body, a lateral image was taken to ensure that the cannula was positioned approximately 1 cm past the vertebral body and a lateral image was then taken to ensure correct position and through the cannula, a drill was then advanced into the vertebral body under fluoroscopic guidance towards the anterior cortex creating a channel. The anterior cortex were then probed with guide pen to ensure no perforation in the anterior cortex. After completion of the entry into the vertebral body, a 30 mL inflatable bone tamp was then inserted through the cannula and advanced under direct fluoroscopic guidance into the vertebral body near the anterior cortex., The biopsy was then taken at the L1 level. After completion of the entry into the vertebral body, a balloon tamp utilizing radiopaque marker bands on the bone tamp were identified using AP and lateral images. The above sequence of instrument placement was then repeated on the left side at the L2 vertebral body. Once both bone tamps were in position, they were inflated to approximately 4 mL and making sure that the pressure is not passing 250 psi. Expansion of the bone tamp was then done sequentially in an increments of 0.25 to 0.5 mL of contrast with a careful attention was being paid to the inflation pressure and the balloon position. The inflation was then monitored on AP and lateral view images. The final balloon volume was 4.5 mL on the right side L1 and 5.5 mL on the left L2 level. There was no breach of the lateral wall or the anterior cortex of the vertebral body. Direct reduction of the fracture was then achieved. Endplate movement was then noticed and approximately 2-3 mm of the height lutheran was achieved at L1 and at approximately 5 mm reduction was then achieved at the L2 level. Under fluoroscopic imaging and a bone void filler, internal fixation was achieved through a low pressure injection of a Joan HV-R bone cement. The cavity was then filled with a total volume of 3.8 mL on the right side at L1 and approximately 4.8 mL of cement on the left side at the L2 level. Once the bone cement had hardened, the cannula was then removed. Once the cannula was removed and satisfactory hemostasis was maintained, the incision as then closed with a 4-0 Vicryl at the skin. The patient was kept in the prone position for approximately 10 minutes post-cement injection. The patient was then turned into supine position, monitored briefly and returned to PACU. The patient was moving both of her lower extremities at the same time without any apparent neurological deficits. Throughout the procedure, there were no intraoperative complications, Motor as well as sensory exam was unchanged from prior to procedure. ESTIMATED BLOOD LOSS: Minimal less than 25 mL ASSESSMENT AND PLAN: This is a 69-year-old F with compression fracture of L and L2, osteoporosis, status post [place] balloon kyphoplasty at L1, Joan balloon kyphoplasty at 2 and insertion of [place] HV-R bone cement under low pressure at L1 and L2 level and bone biopsied at both levels. The patient will continue her current medication. The patient will follow-up in approximately 1 week for re-evaluation.
== END 2020-02-13 14:47 | disposition home or self-care (01) ==
LOC: SDC 10:44 → AC 10:46
PROVIDERS: PCP Family Medicine; Referring Provider Anesthesiology Pain Medicine; Visit Provider Anesthesiology Pain Medicine
PROC: (CPT 22514; principal; 2020-02-13 12:45)
DX: M48.56XA Collapsed vertebra, not elsewhere classified, lumbar region, initial encounter for fracture (principal); I25.10 Atherosclerotic heart disease of native coronary artery without angina pectoris; Z86.73 Personal history of transient ischemic attack (TIA), and cerebral infarction without residual deficits; I10 Essential (primary) hypertension; E78.5 Hyperlipidemia, unspecified; E11.40 Type 2 diabetes mellitus with diabetic neuropathy, unspecified; Z79.899 Other long term (current) drug therapy; Z79.82 Long term (current) use of aspirin; Z79.02 Long term (current) use of antithrombotics/antiplatelets; Z11.59 Encounter for screening for other viral diseases
CPT/HCPCS: 01936; 22514; 22515; 72100; 76000; 82962; 87635; 88305; 88311; G2023; J7120; U0004

== ENCOUNTER 2020-04-30 08:51 | Day surgery (SDC) | payer MEDICARE, SELFPAY ==
[2020-04-19 11:43] VITALS: BMI 28.3
[2020-04-30 09:26] LABS: Bedside Glucose 128 mg/dL (70-110)
[2020-04-30 09:28] VITALS: BP 110/67; PULSE 103; RESP 14; TEMP 36.4; O2SAT 96; BMI 28.3
[2020-04-30] MEDS: Lactated Ringers 1,000 ML 100 ML IV (09:44)
--- NOTE | 2020-04-30 10:10 | RAD_ITS ---
STUDY: X-RAY - CERVICAL SPINE REASON FOR EXAM: Female, 70 years old. BLOCK, CERVICAL FACET, C4-C7, LEFT TECHNIQUE: 4 Limited view(s) of the cervical spine were obtained. COMPARISON: None FINDINGS: 4 Limited intraoperative views were performed as the patient has undergone left C4-C7 facet joint block. RAD/Cerv Spine 2 or 3 Views IMPRESSION: Left C4-C7 facet joint block Electronically Signed: Marco Santiago MD at 13:26 EDT , Service support ,
[2020-04-30] MEDS: MethylPREDNISolone Acetate 80 MG/ML Vial (10:17)
[2020-04-30] MEDS: Bupivacaine 0.25% 30 ML Vial (10:18)
[2020-04-30 10:26] VITALS: BP 110/67; BP 85/71; PULSE 84; RESP 16; TEMP 35.9; O2SAT 98
--- NOTE | 2020-04-30 10:26 | OP.PCM_ITS ---
Report of Operation Date of Procedure: 04/30/20 Description of Surgical Findings:: PREOPERATIVE DIAGNOSIS: Cervical spondylosis, cervical degenerative disc disease, cervical facet arthropathy POSTOPERATIVE DIAGNOSIS: Cervical spondylosis, cervical degenerative disc disease, cervical facet arthropathy PROCEDURE PERFORMED: Left-sided cervical facet steroid injection, C4, C5, C6, and C7. ANESTHESIA: MAC. BLOOD LOSS: Minimal. COMPLICATIONS: None. DESCRIPTION OF PROCEDURE: History and physical of today was reviewed. Risks and benefits of the procedure were explained. The patient understood and agreed to proceed. Informed consent was obtained. IV inserted per routine protocol. The patient was taken to the operating room and placed in the prone position with a pillow positioned underneath the chest. The neck area was prepped and draped in a sterile fashion using iodine x3. Under fluoroscopy guidance on an AP view, the C4 through C7 vertebral bodies were visualized at approximately 10- degree angle, starting on the Left C4, ending on the Left C7, passing through the C5 and C6. Using a 25-gauge 3-1/2-inch spinal needle, the needle was advanced via the skin. The tip of the needle was maneuvered and directed towards the epiphyseal junction of each corresponding vertebra. Once the tip of the needle was at the vicinity of the medial branch, the needle was pulled approximately 2 mm off the bone. After negative aspiration of blood or CSF and confirmation on AP, oblique as well as lateral view, a total of 4 mL of preservative-free 0.25% Marcaine with 80 mg of Depo-Medrol was injected in divided doses between those four levels. The needles were then removed intact. The patient experienced no sign or symptoms of intrathecal or intravascular injection. The patient experienced no paresthesia. The procedure was completed without any apparent difficulty or any complications. The patient appeared to tolerate it well. ASSESSMENT AND PLAN: This is a 70-year-old female with cervical spondylosis, cervical degenerative disc disease, cervical facet arthropathy status post left-sided cervical facet steroid injection C4-C7, patient will continue her current medications, patient will follow approximately 2 weeks for reevaluation.
[2020-04-30 10:30] VITALS: BP 110/67; BP 85/51; PULSE 86; RESP 16; O2SAT 97
[2020-04-30 10:35] VITALS: BP 110/67; BP 114/59; PULSE 85; RESP 16; O2SAT 95
[2020-04-30 10:40] VITALS: BP 110/67; BP 118/59; PULSE 86; RESP 16; TEMP 36; O2SAT 95
[2020-04-30 11:13] VITALS: BP 110/67
== END 2020-04-30 11:14 | disposition home or self-care (01) ==
LOC: SDC 08:57 → AC 08:58
PROVIDERS: PCP Family Medicine; Referring Provider Anesthesiology Pain Medicine; Visit Provider Anesthesiology Pain Medicine
PROC: 3E0U3BZ Introduction of Anesthetic Agent into Joints, Percutaneous Approach (ICD-10-PCS; CPT 64490; principal; 2020-04-30 10:35)
DX: M47.812 Spondylosis without myelopathy or radiculopathy, cervical region (principal); M50.30 Other cervical disc degeneration, unspecified cervical region; E78.00 Pure hypercholesterolemia, unspecified; E11.9 Type 2 diabetes mellitus without complications; M06.9 Rheumatoid arthritis, unspecified; I10 Essential (primary) hypertension; Z79.899 Other long term (current) drug therapy; J44.9 Chronic obstructive pulmonary disease, unspecified; Z79.84 Long term (current) use of oral hypoglycemic drugs; Z79.82 Long term (current) use of aspirin; Z79.02 Long term (current) use of antithrombotics/antiplatelets
CPT/HCPCS: 64491; 64492; 64490; 72040; 82962; J7120

== ENCOUNTER 2020-06-18 17:57 | Observation (INO) | payer MEDICARE, SELFPAY ==
[2020-06-18 18:00] VITALS: BP 136/90; PULSE 118; RESP 18; TEMP 36.9; O2SAT 93; BMI 25.7
[2020-06-18 18:05] VITALS: BP 136/90; PULSE 118; RESP 18; TEMP 36.9; O2SAT 93
--- NOTE | 2020-06-18 18:40 | CT_ITS ---
STUDY: CT BRAIN WITHOUT CONTRAST REASON FOR EXAM: Female, 70 years old. CONFUSION, C/O LEFT ARM PAIN, HX TIA, VASCULAR DEMENTIA, RIGHT CAROTID ENDARTERECTOMY, HTN, DIAB RADIATION DOSAGE (If Supplied By Facility): CTDIvol = ( 44.99 ) mGy, DLP = ( 812.98 ) mGycm TECHNIQUE: Transaxial CT imaging of the brain was performed without administration of intravenous contrast material. Individualized dose optimization techniques were used for this CT. COMPARISON: No relevant priors. FINDINGS: Normal soft tissue structures. Normal calvarium. There is mild cerebral atrophy with widening of the extra-axial spaces and ventricular dilatation. There are areas of decreased attenuation within the white matter tracts of the supratentorial brain, consistent with microvascular disease changes. There is an old lacunar infarct of the right thalamus. Normal brainstem. Normal cerebellum. There is no intracranial hemorrhage. There are no findings of an acute ischemic infarction. Normal visualized paranasal sinuses. CT/Brain/Head without Contrast IMPRESSION: Chronic involutional changes of the brain. 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 Electronically Signed: David Dobson MD at 19:50 EDT , Service support ,
--- NOTE | 2020-06-18 18:41 | EKG12_ITS ---
Test Reason : DYSRHYTHMIA Blood Pressure : / mmHG Vent. Rate : 094 BPM Atrial Rate : 094 BPM P-R Int : 140 ms QRS Dur : 080 ms QT Int : 372 ms P-R-T Axes : 000 025 053 degrees QTc Int : 465 ms Normal sinus rhythm Normal ECG Confirmed by RICKI SAUCEDO, TOIÑTO ([id number]), multimedia editor ROCKY ANGELA ([id number]) on 06/20/2020 9:34:23 AM Referred By: KAMARI Confirmed By:TOÑITO ROBISON MD
[2020-06-18] MEDS: HYDROcodone Bitartrate/Apap 5/325 Tablet PO (19:24)
[2020-06-18 19:28] LABS: Absolute Lymphocyte Count 1.47 X10^3/uL (0.83-4.51); Absolute Neutrophil Count 6.5 X10^3/uL (2.0-7.7); Basophil# 0.07 X10^3/uL; Basophil% 0.8 % (0-1); Eosinophil# 0.27 X10^3/uL; Hematocrit 45.3 % (37-47); Hemoglobin 15.3 g/dL (12.0-15.0); Lymphocyte # 1.47 X10^3/ul (4.0); Lymphocyte % 16.4 % (19-41); Mean Corp Hgb Conc 33.8 g/dL (32-36); Mean Corpuscular Hgb 30.3 pg (27.0-32.0); Mean Corpuscular Volume 89.7 fL (81-99); Mean Platelet Vol. 9.5 fl (6.2-12.0); Monocyte# 0.59 X10^3/uL; Monocyte% 6.6 % (0-10); NRBC Flagged by Analyzer 0 % (0-5); Neutrophil # 6.53 X10^3/uL (2.7-7.7); Platelet Count 362 K/mm3 (150-450); RBC Distribution Width CV 12.3 % (11.6-14.6); RBC Distribution Width SD 40.5 fl (35.1-43.9); Red Blood Count 5.05 M/mm3 (4.2-5.4)
--- NOTE | 2020-06-18 19:35 | RAD_ITS ---
STUDY: X-RAY - LEFT SHOULDER REASON FOR EXAM: Female, 70 years old. left shoulder pain, has a known old fx, increased pain TECHNIQUE: 2 view(s) of the shoulder. COMPARISON: Previous study of 09/08/2018 FINDINGS: There is moderate degenerative arthrosis of the glenohumeral articulation. Normal acromioclavicular joint. Normal acromion. There is a healing fracture of the left humeral head and neck. Complete bony union has not occurred as of yet. The soft tissue structures are unremarkable. Normal visualized pulmonary apex. RAD/Shoulder min 2 Views IMPRESSION: Healing comminuted minimally impacted fracture of the left humeral head and neck. Bony union has not occurred as of yet. There is no evidence of acute fracture or dislocation. There are moderately severe degenerative changes of the glenohumeral articulation. Electronically Signed: David Dobson MD at 20:08 EDT , Service support ,
[2020-06-18 19:47] LABS: AST(SGOT) 9 U/L (15-37); Alanine Aminotransfer ALT/SGPT 11 U/L (13-56); Albumin, Serum 3.8 g/dL (3.2-5.0); Alkaline Phosphatase 118 U/L (45-117); Anion Gap 6 (5-15); BUN 8 mg/dL (7-18); BUN/Creat Ratio 13.9 RATIO (10-20); Calcium,Total 9.8 mg/dL (8.5-10.1); Chloride 94 mmol/L (98-107); Creatinine, Serum 0.57 mg/dL (0.55-1.02); EST Glomerular Filtration Rate 110 mL/min (>60); Est Glom Filt Rate - Afr Amer 133 mL/min (>60); Estimated Creatinine Clearance 44.56 ml/min; Globulin 3.9 g/dL (2.2-4.2); Glucose 90 mg/dL (74-106); Potassium 3.4 mmol/L (3.5-5.1); Protein, Total 7.7 g/dL (6.4-8.2); Sodium Level 131 mmol/L (136-145)
[2020-06-18] MEDS: Ziprasidone IM 20 MG/ML VIAL 10 MG IM ×2 (20:20→22:54)
[2020-06-18 20:35] VITALS: BP 108/75; PULSE 86; RESP 16
[2020-06-18 21:06] LABS: Mucous, Urine 0 SEEN /hpf (<or=2+); Red Blood Cells-Urine 0 SEEN /hpf (0-5)
[2020-06-18 21:12] LABS: Color, Urine Yellow (Yellow); Glucose, Dipstick Normal (Normal); Ketone-Dipstick Negative (Negative); Leukocyte Esterase-Dipstick 25 /ul (Negative); Nitrite-Dipstick Negative (Negative); Occult Blood-Urine Negative /ul (Negative); Protein-Dipstick Negative (Negative); Urine Bilirubin Dipstick Negative (Negative); Urine Clarity Clear (Clear); Urine Urobilinogen Normal (Normal); Urine pH 6.5 (5.0 - 8.0)
[2020-06-18 21:19] LABS: Bacteria 2+ /hpf (None Seen); Squamous Epithelial Cells - UA 0-5 SEEN /hpf (5-10); Transitional Epithelial - Ur 0-5 SEEN /hpf (0-5); White Blood Cells 0-5 SEEN /hpf (0-5)
--- NOTE | 2020-06-18 21:26 | ED.DCSUM_ITS ---
- ER Visit Summary Date of Service: 06/18/20 Chief Complaint: Confusion History of Present Illness: The patient is a [address] Cabrera Taylor iii. She presents with her granddaughter who gives all history. The patient is very hard of hearing and confused. Granddaughter reports patient is repeatedly asking the same questions today. These are questions she would normally know the answers to. She also reports the patient has not been able to move her left arm for approximately 2 years. This morning she woke up with bruises on her left arm and has been twisting and contorting her arm throughout the day. She also had random twist chain of her left leg. She does not have a history of seizures. Patient is vomited once today. No blood in her emesis. She denies fever or chills. No chest pain, cough, or difficulty breathing. No dysuria or frequency. No abdominal pain. No diarrhea. She is had generalized weakness for the past few days. Patient denies headache. Physical Examination: Vitals: Stable. Afebrile. General: Well-nourished and well-developed. Head: Normocephalic atraumatic. Neck: Supple, no lymphadenopathy. No JVD. Nontender. Cardiovascular: Regular rate and rhythm. No murmurs. Respiratory: No respiratory distress. Clear to auscultation bilaterally. Abdominal: Soft, nontender, nondistended, normal bowel sounds. No guarding, rebound, or peritoneal signs. Back: Nontender. Extremities:No edema. Mild tenderness palpation over her left shoulder. She has a contusion to her left wrist. Skin: Normal color, no rash. Neurologic: Alert and oriented ?2. Her legs well and right arm well. Very hard of hearing and difficult to communicate with. Psych: Normal affect. Test Results: EKG is sinus at [address] changes and artifact. CBC shows a hemoglobin of 15.3, segment neutrophils 73, lymphocytes of 16. Chem-7 shows a sodium 131, potassium 3.4, chloride of 94. LFTs show an AST of 9, alk phos of 118, ALT of 11. UA shows 2+ bacteria, but no lots of infection otherwise. This was a cath specimen. This was sent for culture. Clinical Impression(s) from Imaging Studies Brain CT 06/18/20 18:40 IMPRESSION: Chronic involutional changes of the brain. 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 Electronically Signed: David Dobson MD at 19:50 EDT , Service support , Shoulder X-Ray 06/18/20 19:35 IMPRESSION: Healing comminuted minimally impacted fracture of the left humeral head and neck. Bony union has not occurred as of yet. There is no evidence of acute fracture or dislocation. There are moderately severe degenerative changes of the glenohumeral articulation. Electronically Signed: David Dobson MD at 20:08 EDT , Service support , Emergency Department Course and Treatment: Patient remains quite agitated in the emergency department. She was given a dose of [place] p.o. She was given Geodon IM. Treatment Plan: Patient lives with her who cannot care for her. She will be discussed with the hospitalist and admitted for further evaluation and treatment. Disposition: Admitted in improved condition. Impression: 1. Acute delirium, uncertain cause. 2. Contusion left hand. 3. History of frozen left shoulder. This note was generated with [employer] dictation software. It may contain incorrect words, spelling, and punctuation that were not noted in review of the chart prior to signing ED Disposition - Plan for ED Patient: Referrals: Cabrera Taylor III, MD [Primary Care Provider] -
[2020-06-18 23:00] VITALS: BP 149/90; PULSE 80; RESP 16; TEMP 36.4; O2SAT 94
--- NOTE | 2020-06-18 23:16 | HP.PCM_ITS ---
Problem List (1) acute delerium Status: Acute (2) Debility Status: Chronic (3) Hx of tonsillectomy Status: Chronic (4) Hx of bladder repair surgery Status: Chronic (5) History of partial hysterectomy Status: Chronic (6) History of lumpectomy of right breast Status: Chronic (7) History of right-sided carotid endarterectomy Status: Chronic Comment: 2009 (8) Hx TIA/stroke w/o resid Status: Chronic (9) Diabetes Status: Chronic (10) Left humeral fracture Status: Resolved (11) HTN (hypertension) Status: Chronic History of Present Illness Date of Admission: 06/18/20 Chief Complaint: altered mental status The patient is a 70 year old male patient with a past medical history of stroke, hypertension, debility and generally poor vascular blood flow who presents to the emergency room from home due to acute mental status changes. Per daughter who is power of health care attorney of healthcare reports that the patient earlier today was fidgeting with her left arm and left leg despite having not move the left arm in several years. She reports the patient was combative and confused and had a couple episodes of nausea with vomiting. My evaluation was done after the patient had received 2 doses of 10 mg Geodon and while the patient was lucid she was a very poor historian. Laboratory studies are unremarkable as well as urinalysis. CT scan of the brain shows an old stroke but no new pathology. She will be admitted overnight for observation and consult of case management for assistance if this is progression of her disease and level of care needs. Past Medical History Past Medical History (Chronic Problems): Chronic Problems (Last Reviewed 04/19/20 @ 11:33 by Qian Thrasher) Ulcer of right lower leg (Chronic) Ulcer of right groin with fat layer exposed (Chronic) Wound of right lower extremity (Chronic) Right lower extremity with fat layer exposed Compression fracture (Chronic) Debility (Chronic) Hx of tonsillectomy (Chronic) Hx of bladder repair surgery (Chronic) History of partial hysterectomy (Chronic) History of lumpectomy of right breast (Chronic) History of right-sided carotid endarterectomy (Chronic) 2008 Hx TIA/stroke w/o resid (Chronic) Diabetes (Chronic) HTN (hypertension) (Chronic) Chronic ulcer of left heel with fat layer exposed (Chronic) Decubitus ulcer of left heel, stage 4 (Chronic) PAD (peripheral artery disease) (Chronic) Tobacco abuse (Chronic) Medical History: Medical History (Last Reviewed 04/19/20 @ 11:33 by Qian Thrasher) Hx TIA/stroke w/o resid (Chronic) Z86.73 Diabetes (Chronic) E11.9 Neurogenic bladder (Acute) N31.9 Urinary retention (Acute) R33.9 Neurogenic bladder (Acute) N31.9 Urge incontinence (Acute) N39.41 Nocturia (Acute) R35.1 Intertrochanteric fracture of left hip (Acute) S72.142A Left humeral fracture (Suspected) S42.302A HTN (hypertension) (Chronic) I10 Chronic ulcer of left heel with fat layer exposed (Chronic) L97.422 Decubitus ulcer of left heel, stage 4 (Chronic) L89.624 PAD (peripheral artery disease) (Chronic) I73.9 Tobacco abuse (Chronic) Z72.0 CAD (coronary artery disease) I25.10 Cervical radiculitis M54.12 Frozen shoulder M75.00 Gout M10.9 Neuropathy G62.9 Osteoporosis M81.0 Peripheral vascular disease I73.9 Type II diabetes mellitus E11.9 Vitamin D deficiency E55.9 Chronic neck pain M54.2, G89.29 Allergies amoxicillin [From Augmentin] Allergy (Verified 04/30/20 09:16) Rash atorvastatin [From Lipitor] Allergy (Verified 04/30/20 09:16) Other clavulanic acid [From Augmentin] Allergy (Verified 04/30/20 09:16) Rash gabapentin Allergy (Verified 04/30/20 09:16) Nausea quinapril [From Accupril] Allergy (Verified 04/30/20 09:16) Rash fluoxetine Adverse Reaction (Verified 04/30/20 09:16) Other Home Medications: Ambulatory Orders Medication Instructions Recorded Hydrochlorothiazide [Hctz] 12.5 mg PO DAILY 06/16/18 Losartan Potassium [Cozaar] 100 mg PO DAILY 06/16/18 Rosuvastatin Calcium 5 mg PO QHS 09/08/18 acetaminophen 500 mg tablet 500 mg PO Q6H PRN 01/20/19 Clopidogrel Bisulfate [Plavix] 75 mg PO DAILY 02/12/19 Aspirin E.C. [Ecotrin] 81 mg PO DAILY@0800 02/10/20 diclofenac sodium 1 % topical gel 2 g TOPICAL .QID g 04/12/20 ibuprofen 200 mg capsule 600 mg PO TID cap 04/12/20 naproxen 500 mg tablet 500 mg PO BID tab 04/12/20 nystatin 100,000 unit/gram topical g TOPICAL 04/12/20 cream Amlodipine 10 mg PO DAILY 04/30/20 metFORMIN (XR) [Glucophage Xr] 500 mg PO BID 04/30/20 Surgical History: Surgical History (Last Reviewed 04/19/20 @ 11:33 by Qian Thrasher) Hx of tonsillectomy (Acute) Z90.89 Hx of bladder repair surgery (Acute) Z98.890 History of partial hysterectomy (Acute) Z90.711 History of lumpectomy of right breast (Acute) Z98.890 History of right-sided carotid endarterectomy (Acute) Z98.890 2008 Surgical History: total hip arthroplasty, - - Bladder Surgery x2; right carotid endarectomy; and bladder stimulator placed at back Psychiatric History: No 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 Denies: Chills, Fever, Weight Change HEENT: Denies: Head Aches, Sinus Congestion, Sinus Drainage Cardiovascular: Denies: Chest Pain, Palpitations Respiratory: Denies: Cough, Shortness of breath at rest, Sputum production Gastrointestinal: Reports: Nausea, Vomiting. Denies: Abdominal Pain Genitourinary: Denies: Dysuria Musculoskeletal: Denies: Joint Pain, Joint Tenderness Skin: Denies: Rash, Wounds Neurological: Reports: Confusion. Denies: Focal weakness, Numbness, Tingling Psychiatric: Reports: Anxiety. Denies: Depression, Homicidal Ideations, Suicidal Ideations Hematologic/ Lymphatic: Denies: Easy Bruising, Easy Bleeding VTE Information - Inpt Only VTE Present on Admission: No VTE Mechan Device Prophylaxis: None VTE Pharm Prophylaxis ordered?: Yes Patient Problems: Active and Suspected Problems (Last Reviewed 04/19/20 @ 11:33 by Qian Thrasher) acute delerium (Acute) - Physical Exam Vitals/I&O's: Vital Signs Temp Pulse Resp BP Pulse Ox 97.6 F L 80 16 149/90 H 94 06/18/20 23:00 06/18/20 23:00 06/18/20 23:00 06/18/20 23:00 06/18/20 23:00 Oxygen Delivery Method Room Air Weight: 150 lb 2.157 oz Body Mass Index (BMI) 25.7 Finger Stick Blood Glucose 156 General: Alert, Confused, - - agitated HEENT: Atraumatic, PERRLA, EOMI, Normocephalic Neck: Supple, No JVD Lungs: Clear to auscultation, Normal air movement, No rhonchi, No wheeze, No rales Cardiovascular: Regular rate, Normal S1, Normal S2, No murmurs Abdomen: Bowel Sounds Present, Soft Extremities: No edema Skin: No rashes Musculoskeletal: No Tenderness to Palpation of Joints or Extremities Neurological: Neuro grossly intact - has left arm paralysis Psych/Mental Status: Normal Affect, Appropriate Laboratory Results 06/18/20 18:55: WBC 9.0, RBC 5.05, Hgb 15.3 H, Hct 45.3, MCV 89.7, MCH 30.3, MCHC 33.8, RDW Std Deviation 40.5, RDW Coeff of Mirza 12.3, Plt Count 362, MPV 9.5, Immature Gran % (Auto) 0.200, Neut % (Auto) 73.0 H, Lymph % (Auto) 16.4 L, [place] % (Auto) 6.6, Eos % (Auto) 3.0, Baso % (Auto) 0.8, Absolute Neuts (auto) 6.5, Absolute Lymphs (auto) 1.47, Nucleated RBC % 0 06/18/20 18:55: Sodium 131 L, Potassium 3.4 L, Chloride 94 L, Carbon Dioxide 31.0, Anion Gap 6, BUN 8, Creatinine 0.57, Estim Creat Clear Calc 44.56, Est GFR (MDRD) Af Amer 133, Est GFR (MDRD) Non-Af 110, BUN/Creatinine Ratio 13.9, Glucose 90, Calcium 9.8, Total Bilirubin 0.30, AST 9 L, ALT 11 L, Alkaline Phosphatase 118 H, Total Protein 7.7, Albumin 3.8, Globulin 3.9, Albumin/Globulin Ratio 1.0 06/18/20 20:50: Urine Color Yellow, Urine Clarity Clear, Urine pH 6.5, Ur Specific [place] 1.010, Urine Protein Negative, Urine Glucose (UA) Normal, Urine Ketones Negative, Urine Occult Blood Negative, Urine Nitrite Negative, Urine Bilirubin Negative, Urine Urobilinogen Normal, Ur Leukocyte Esterase 25 H, Urine RBC 0 SEEN, Urine WBC 0-5 SEEN, Ur Squamous Epith Cells 0-5 SEEN, Ur Transition Epith Cell 0-5 SEEN, Urine Bacteria 2+, Urine Mucus 0 SEEN Assessment/Plan All Active Problems (Last Reviewed 04/19/20 @ 11:33 by Qian Thrasher) acute delerium (Acute) Ischemia of right lower extremity (Acute) Injury of right common femoral artery (Acute) Postoperative wound dehiscence (Acute) COPD exacerbation (Acute) Neurogenic bladder (Acute) Urinary retention (Acute) Neurogenic bladder (Acute) Urge incontinence (Acute) Nocturia (Acute) Intertrochanteric fracture of left hip (Acute) Left humeral fracture (Resolved) Chronic Problems (Last Reviewed 04/19/20 @ 11:33 by Qian Thrasher) Ulcer of right lower leg (Chronic) Ulcer of right groin with fat layer exposed (Chronic) Wound of right lower extremity (Chronic) Right lower extremity with fat layer exposed Compression fracture (Chronic) Debility (Chronic) Hx of tonsillectomy (Chronic) Hx of bladder repair surgery (Chronic) History of partial hysterectomy (Chronic) History of lumpectomy of right breast (Chronic) History of right-sided carotid endarterectomy (Chronic) 2009 Hx TIA/stroke w/o resid (Chronic) Diabetes (Chronic) HTN (hypertension) (Chronic) Chronic ulcer of left heel with fat layer exposed (Chronic) Decubitus ulcer of left heel, stage 4 (Chronic) PAD (peripheral artery disease) (Chronic) Tobacco abuse (Chronic) Man 1. Acute delirium?admit patient for observation to general medical floor, neurologic evaluations every 4 hours, will attempt redirection after she is received medication but she may require soft restraints to the evening. Consult case management for discharge planning. Repeat CBC BMP in the morning 2. Diabetes?continue home medications 3. Hypertension?continue home routine medications 4. DVT prophylaxis?low molecular weight heparin OBSV E&M: [id number] Initial observation care L2
[2020-06-18 23:46] VITALS: BP 149/90; PULSE 80; RESP 16; TEMP 36.4; O2SAT 94
[2020-06-18 23:47] VITALS: BP 123/73; PULSE 86; RESP 18; TEMP 36.6; O2SAT 92
[2020-06-18 23:53] VITALS: BMI 24.4
[2020-06-18 23:55] VITALS: BMI 24.4
[2020-06-19 04:23] VITALS: BP 116/79; PULSE 82; RESP 16; TEMP 36.6; O2SAT 94
[2020-06-19 05:41] LABS: Absolute Lymphocyte Count 2.06 X10^3/uL (0.83-4.51); Absolute Neutrophil Count 2.8 X10^3/uL (2.0-7.7); Basophil# 0.07 X10^3/uL; Basophil% 1.2 % (0-1); Eosinophil# 0.41 X10^3/uL; Hematocrit 38.9 % (37-47); Hemoglobin 13.3 g/dL (12.0-15.0); Lymphocyte # 2.06 X10^3/ul (4.0); Lymphocyte % 35.3 % (19-41); Mean Corp Hgb Conc 34.2 g/dL (32-36); Mean Corpuscular Hgb 30.9 pg (27.0-32.0); Mean Corpuscular Volume 90.3 fL (81-99); Mean Platelet Vol. 9.5 fl (6.2-12.0); Monocyte# 0.48 X10^3/uL; Monocyte% 8.2 % (0-10); NRBC Flagged by Analyzer 0 % (0-5); Neutrophil % 48.1 % (47-70); Platelet Count 297 K/mm3 (150-450); RBC Distribution Width CV 12.4 % (11.6-14.6); RBC Distribution Width SD 41.3 fl (35.1-43.9); Red Blood Count 4.31 M/mm3 (4.2-5.4); White Blood Count 5.8 K/mm3 (4.4-11.0)
[2020-06-19 06:02] LABS: Anion Gap 2 (5-15); BUN 9 mg/dL (7-18); BUN/Creat Ratio 18.6 RATIO (10-20); Chloride 96 mmol/L (98-107); Creatinine, Serum 0.48 mg/dL (0.55-1.02); EST Glomerular Filtration Rate 134 mL/min (>60); Est Glom Filt Rate - Afr Amer 162 mL/min (>60); Estimated Creatinine Clearance 44.56 ml/min; Glucose 109 mg/dL (74-106); Potassium 3.1 mmol/L (3.5-5.1); Sodium Level 132 mmol/L (136-145)
[2020-06-19 06:51] LABS: Bedside Glucose 99 mg/dL (70-110)
[2020-06-19 07:45] LABS: Magnesium 1.8 mg/dL (1.6-2.6)
[2020-06-19] MEDS: 0.9% Normal Saline 1,000 ML 100 ML IV (08:18)
[2020-06-19] MEDS: 0.9% Saline Lock 10 ML Syringe IV (08:19)
[2020-06-19] MEDS: metFORMIN (XR) 500 MG Tablet PO (08:21)
[2020-06-19] MEDS: Losartan Potassium 100 MG Tablet PO (08:22)
[2020-06-19] MEDS: amLODIPine 10 MG Tablet PO (08:22)
[2020-06-19] MEDS: hydroCHLOROthiazide 12.5mg 12.5 MG PO (08:22)
[2020-06-19] MEDS: Enoxaparin 40 MG/0.4 ML Syringe SC (08:22)
[2020-06-19 08:25] VITALS: BP 131/67; PULSE 77; RESP 16; TEMP 37.2; O2SAT 92
--- NOTE | 2020-06-19 11:01 | NURSING ---
RN CM Assessment Introduced role of RN CM to patient. Patient is alert, oriented and able to participate in RN CM Assessment. Care providers, pharmacy, and demographics verified. Per dtr Chloé patient is extremely [place] and better to call dtr Chloé's number #[phone]. Admit Dx: Delirium Re-Admit: No Barriers/Issues: None PCP: Cabrera Taylor Specialists: Dr Le, Dr Manjeet Barber at [facility], [facility] surgeon Preferred Pharmacy: [facility] Insurance: [place] Secure Rx Benefit: Yes LNOK: Manjeet Mcdaniel LW/HPOA: Dtr Chloé states that patient has both completed and should be on file with [facility]. 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 Living Arrangements: Lives with her , patient daughter Chloé and her dtr help patient at home. ADL?s: Patient has been bed/chair bound since discharge from the [facility]- was there for 3 weeks for rehab after a fall on December 01, 2019. , Dtr Chloé and her dtr (patient granddaughter) helps with all her ADLs. Transportation: Kate Luevano DME: WC, Walker, Purewick with suction, sliding shower seat, RTS, BSC, hospital bed, home O2 at HS 2LPM-[employer], portable tanks [facility]: Current with [facility] #[phone], fax#[phone] for yobani, OT, PT, RN. Called Sin and s/w Rosanne whom confirmed patient is active, aware of plan to DC home today with [facility], states fax DC summary. SNF: Past at the [facility] Goal: Home with [facility] OT/PT/RN/Aide DC PLAN: Same as Goal. Jennifer Jack RNCM
--- NOTE | 2020-06-19 11:28 | DCINST_ITS ---
- Discharge Diagnoses Current Active Problems: Current Active and Chronic Problems (Last Reviewed 04/19/20 @ 11:33 by Qian Thrasher) acute delerium (Acute) You will use the following diet at home:: Regular Your liquids should be the consistency of: Regular/Thin Discharge Activity: May Not Drive Weight Bearing Status: Weight bearing as tolerated Call your doctor if you observe: Fever of 101 or Higher, Numbness or Tingling, Inability to urinate, Inability to have a bowel movement, Using more than one pad per hour, Shortness of breath, Dizziness, Fainting spells, Swelling in the ankles, Chest pain, Prolonged hiccoughing, Increased palpitations (irregular heartbeat), Calf discomfort, Uncontrolled pain Allergies/Adverse Reactions: Allergies amoxicillin [From Augmentin] Allergy (Verified 04/30/20 09:16) Rash atorvastatin [From Lipitor] Allergy (Verified 04/30/20 09:16) Other clavulanic acid [From Augmentin] Allergy (Verified 04/30/20 09:16) Rash gabapentin Allergy (Verified 04/30/20 09:16) Nausea quinapril [From Accupril] Allergy (Verified 04/30/20 09:16) Rash fluoxetine Adverse Reaction (Verified 04/30/20 09:16) Other Medications to take at Discharge Hydrochlorothiazide [Hctz] 12.5 mg PO DAILY 06/16/18 Losartan Potassium [Cozaar] 100 mg PO DAILY 06/16/18 Rosuvastatin Calcium 5 mg PO QHS 09/08/18 acetaminophen 500 mg tablet 500 mg PO Q6H PRN 01/20/19 Clopidogrel Bisulfate [Plavix] 75 mg PO DAILY 02/12/19 Aspirin E.C. [Ecotrin] 81 mg PO DAILY@0800 02/10/20 diclofenac sodium 1 % topical gel 2 g TOPICAL .QID g 04/12/20 nystatin 100,000 unit/gram topical cream g TOPICAL 04/12/20 Amlodipine 10 mg PO DAILY 04/30/20 metFORMIN (XR) [Glucophage Xr] 500 mg PO BID 04/30/20 Naproxen [Naprosyn] 500 mg PO BID PRN PRN #0 tab 06/19/20 Potassium Chloride [K-Dur] 20 meq PO DAILY #30 tab 06/19/20 The following prescriptions were given: Potassium Chloride [K-Dur] 20 meq PO DAILY #30 tab Transmission Status: Pending to [id number] Primary Care Physician: Cabrera Taylor III, MD [Primary Care Provider] - Please follow up with your Primary Care Physician in: In 1 to 2 weeks Test Results: Test results from this visit will be discussed in further detail at your follow- up appointment, if applicable.
--- NOTE | 2020-06-19 11:29 | DS.PCM_ITS ---
Discharge Date and Diagnosis - Problem List Patient Problems: Active and Suspected Problems (Last Reviewed 04/19/20 @ 11:33 by Qian Thrasher) acute delerium (Acute) Date of Admission: 06/18/20 Date of Discharge: 06/19/20 - Primary Discharge Diagnosis Acute Problems: Active Problems (Last Reviewed 04/19/20 @ 11:33 by Qian Thrasher) acute delerium (Acute) - Secondary Discharge Diagnosis Chronic Problems: Chronic Problems (Last Reviewed 04/19/20 @ 11:33 by Qian Thrasher) Ulcer of right lower leg (Chronic) Ulcer of right groin with fat layer exposed (Chronic) Wound of right lower extremity (Chronic) Right lower extremity with fat layer exposed Compression fracture (Chronic) Debility (Chronic) Hx of tonsillectomy (Chronic) Hx of bladder repair surgery (Chronic) History of partial hysterectomy (Chronic) History of lumpectomy of right breast (Chronic) History of right-sided carotid endarterectomy (Chronic) 2009 Hx TIA/stroke w/o resid (Chronic) Diabetes (Chronic) HTN (hypertension) (Chronic) Chronic ulcer of left heel with fat layer exposed (Chronic) Decubitus ulcer of left heel, stage 4 (Chronic) PAD (peripheral artery disease) (Chronic) Tobacco abuse (Chronic) Hospital Course and Treatment Operations: None, - - Date of Procedure: 09/08/18 Primary Surgeon/Physician: Caden Kapoor DO production expediter: Michael Del Valle Pre-Operative Diagnosis: Comminuted left hip fracture, imtertrochanteric with subtrochanteric extension Post-Operative Diagnosis: same Surgery/Procedure Performed:: ORIF left hip with Intertan nail Description of Surgical Findings:: see op note Estimated Blood Loss: 100cc Specimen's removed: none Type of Anesthesia:: General ASA Class: ASA3 Plus Emergency 2018: Abdominal pelvic left lower extremity arteriogram with left superficial femoral angioplasty and focal prot?g? stenting. Left common iliac angioplasty and stenting. February 11, 2019: Abdominal pelvic right lower extremity arteriogram with right common femoral artery angioplasty February 11, 2019 right iliofemoral endarterectomy with bovine patch angioplasty for control of hemorrhage and subsequent thrombosis Summary of Care Provided: The patient is a 70 year old F with multiple comorbid including stroke, carotid stenosis status post right-sided CEA was admitted with acute mental status changes. She was confused, disoriented, restless and agitated. She was admitted on regular MedSurg floor and had 2 doses of Geodon given in ER. Patient also had couple episodes of nausea and vomiting at home. CT head of the brain does not show acute change but old stroke. Vitals are in normal range. Labs shows mild hypovolemic hyponatremia and hypokalemia which was corrected with IV fluid normal saline and potassium supplement. On the floor, patient answered all orientation questions correctly. Nurse discussed with the patient daughter and she has home health services at home. She has other comorbidities diabetes mellitus, hypertension, old stroke, right- sided CVA, peripheral arterial disease with ischemia of right lower extremity mostly secondary DVT of right GAS OPERATIONS ANALYST: Currently stable. Glucose is well controlled in the range of 100. Discharge medication reconciliation done. Discharge follow-up instructions completed. Discharge process discussed with the patient and all questions were answered to patient's satisfaction. Ibuprofen is discontinued as patient is already on naproxen. Potassium supplement prescription sent to patient's pharmacy Total time spent, exact 35 minutes on discharge meds reconciliation, examination, coordination of care with nurses and ancillary staff, review of imaging and blood test and discussion with the patient on follow-up instructions [] Patient Problems: Active and Suspected Problems (Last Reviewed 04/19/20 @ 11:33 by Qian Thrasher) acute delerium (Acute) Objective: Seen and examined along with the nurse. Patient is very hard of hearing. Blood pressure and heart rate is controlled.. Patient answered all the orientation questions correctly related to time, person, place and situation. Physical exam General: Alert, Oriented x4, Cooperative HEENT: Atraumatic, PERRLA, EOMI, Normocephalic, bilateral profound sensorineural hearing loss/deafness. Oral: No Gingival or Mucosal Lesions/ Ulcerations Neck: Supple, No JVD, Negative Carotid Bruits Lungs: Air entry diminished in bilateral lung bases. No crepitation/rhonchi Cardiovascular: Regular rate, Regular Rhythm, Normal S1, Normal S2, No murmurs Abdomen: Bowel Sounds Present, Soft, Non Tender, Non-Distended : No renal angle tenderness. No suprapubic tenderness. Extremities: No edema, Capillary Refill Less than 3 Seconds Skin: No rashes, No breakdown Musculoskeletal: No Tenderness to Palpation of Joints or Extremities Neurological: Cranial nerves II-XII grossly intact, Deep Tendon Reflexes 2+/4 and Symmetrical, Neuro grossly intact Psych/Mental Status: Normal Affect, Appropriate. - Physical Exam Vitals/I&O's: Vital Signs Temp Pulse Resp BP Pulse Ox 98.9 F 77 16 131/67 H 92 06/19/20 08:25 06/19/20 08:25 06/19/20 08:25 06/19/20 08:25 06/19/20 08:25 Oxygen Delivery Method Room Air Weight: 142 lb 6.698 oz Body Mass Index (BMI) 24.4 Finger Stick Blood Glucose 156 Intake and Output for Last 24 Hours 06/17/20 06/18/20 06/19/20 23:59 23:59 23:59 Output Total 0 / 0 Balance 0 / 0 Laboratory Results 06/18/20 18:55: WBC 9.0, RBC 5.05, Hgb 15.3 H, Hct 45.3, MCV 89.7, MCH 30.3, MCHC 33.8, RDW Std Deviation 40.5, RDW Coeff of Mirza 12.3, Plt Count 362, MPV 9.5, Immature Gran % (Auto) 0.200, Neut % (Auto) 73.0 H, Lymph % (Auto) 16.4 L, [place] % (Auto) 6.6, Eos % (Auto) 3.0, Baso % (Auto) 0.8, Absolute Neuts (auto) 6.5, Absolute Lymphs (auto) 1.47, Nucleated RBC % 0 06/18/20 18:55: Sodium 131 L, Potassium 3.4 L, Chloride 94 L, Carbon Dioxide 31 .0, Anion Gap 6, BUN 8, Creatinine 0.57, Estim Creat Clear Calc 44.56, Est GFR (MDRD) Af Amer 133, Est GFR (MDRD) Non-Af 110, BUN/Creatinine Ratio 13.9, Glucose 90, Calcium 9.8, Total Bilirubin 0.30, AST 9 L, ALT 11 L, Alkaline Phosphatase 118 H, Total Protein 7.7, Albumin 3.8, Globulin 3.9, Albumin/Globulin Ratio 1.0 06/18/20 20:50: Urine Color Yellow, Urine Clarity Clear, Urine pH 6.5, Ur Specific [place] 1.010, Urine Protein Negative, Urine Glucose (UA) Normal, Urine Ketones Negative, Urine Occult Blood Negative, Urine Nitrite Negative, Urine Bilirubin Negative, Urine Urobilinogen Normal, Ur Leukocyte Esterase 25 H, Urine RBC 0 SEEN, Urine WBC 0-5 SEEN, Ur Squamous Epith Cells 0-5 SEEN, Ur Transition Epith Cell 0-5 SEEN, Urine Bacteria 2+, Urine Mucus 0 SEEN 06/19/20 05:11: WBC 5.8, RBC 4.31, Hgb 13.3, Hct 38.9, MCV 90.3, MCH 30.9, MCHC 34.2, RDW Std Deviation 41.3, RDW Coeff of Mirza 12.4, Plt Count 297, MPV 9.5, Immature Gran % (Auto) 0.200, Neut % (Auto) 48.1, Lymph % (Auto) 35.3, [place] % (Auto) 8.2, Eos % (Auto) 7.0 H, Baso % (Auto) 1.2 H, Absolute Neuts (auto) 2.8, Absolute Lymphs (auto) 2.06, Nucleated RBC % 0 06/19/20 05:11: Sodium 132 L, Potassium 3.1 L, Chloride 96 L, Carbon Dioxide 34.0 H, Anion Gap 2 L, BUN 9, Creatinine 0.48 L, Estim Creat Clear Calc 44.56, Est GFR (MDRD) Af Amer 162, Est GFR (MDRD) Non-Af 134, BUN/Creatinine Ratio 18.6, Glucose 109 H, Calcium 9.0 06/19/20 05:11: Magnesium 1.8 06/19/20 06:34: POC Glucose 99 Current Medications Amlodipine Besylate (Norvasc) 10 mg PO DAILY [facility] Last Admin: 06/19/20 08:22 Dose: 10 mg Documented by: Dextrose (D50w Syringe) 0 gm IV X1 PRN; Protocol PRN Reason: Hypoglycemia Enoxaparin Sodium (Lovenox) 40 mg SC DAILY [facility] Last Admin: 06/19/20 08:22 Dose: 40 mg Documented by: Glucagon () 1 mg IM .X1 PRN PRN Reason: Hypoglycemia Haloperidol Lactate (Haldol) 2 mg IV X1 PRN PRN Reason: AGITATION Hydrochlorothiazide () 12.5 mg PO DAILY [facility] Last Admin: 06/19/20 08:22 Dose: 12.5 mg Documented by: Sodium Chloride () 1,000 mls @ 100 mls/hr IV .Q10H [facility] Stop: 10/06/20 17:19 Last Admin: 06/19/20 08:18 Dose: 100 mls/hr Documented by: Insulin Human Lispro (Humalog Denisepen (Bkc)) 0 unit SC ACHS [facility]; Protocol Last Admin: 06/19/20 06:44 Dose: Not Given Documented by: Losartan Potassium (Cozaar) 100 mg PO DAILY [facility] Last Admin: 06/19/20 08:22 Dose: 100 mg Documented by: [facility] Admin: 06/19/20 08:21 Dose: 500 mg Documented by: Rosuvastatin Calcium (Crestor) 5 mg PO QHS [facility] Sodium Chloride () 10 - 40 ml IV UD PRN PRN Reason: SALINE FLUSH Last Admin: 06/19/20 08:19 Dose: 10 ml Documented by: Discharge Activity: May Not Drive Weight Bearing Status: Weight bearing as tolerated Call your doctor if you observe: Fever of 101 or Higher, Numbness or Tingling, Inability to urinate, Inability to have a bowel movement, Using more than one pad per hour, Shortness of breath, Dizziness, Fainting spells, Swelling in the ankles, Chest pain, Prolonged hiccoughing, Increased palpitations (irregular heartbeat), Calf discomfort, Uncontrolled pain Home Medications: Medications to take at Discharge Hydrochlorothiazide [Hctz] 12.5 mg PO DAILY 06/16/18 Losartan Potassium [Cozaar] 100 mg PO DAILY 06/16/18 Rosuvastatin Calcium 5 mg PO QHS 09/08/18 acetaminophen 500 mg tablet 500 mg PO Q6H PRN 01/20/19 Clopidogrel Bisulfate [Plavix] 75 mg PO DAILY 02/12/19 Aspirin E.C. [Ecotrin] 81 mg PO DAILY@0800 02/10/20 diclofenac sodium 1 % topical gel 2 g TOPICAL .QID g 04/12/20 nystatin 100,000 unit/gram topical cream g TOPICAL 04/12/20 Amlodipine 10 mg PO DAILY 04/30/20 metFORMIN (XR) [Glucophage Xr] 500 mg PO BID 04/30/20 Naproxen [Naprosyn] 500 mg PO BID PRN PRN #0 tab 06/19/20 Potassium Chloride [K-Dur] 20 meq PO DAILY #30 tab 06/19/20 Following Prescriptions Were Given to Patient: Potassium Chloride [K-Dur] 20 meq PO DAILY #30 tab Transmission Status: Pending to [id number] Primary Care Physician: Cabrera Taylor III, MD [Primary Care Provider] - Please follow up with your Primary Care Physician in: In 1 to 2 weeks Medical Necessity - Tobacco Use Smoking Status: Current every day smoker Meaningful Use Info Meaningful Use Diagnoses (Choose all that apply): None applicable OBSV E&M: 20987 Observation care discharge
[2020-06-19 12:00] LABS: Bedside Glucose 127 mg/dL (70-110)
[2020-06-19 12:40] VITALS: BP 108/58; PULSE 81; RESP 16; TEMP 37.1; O2SAT 94
== END 2020-06-19 13:25 | disposition home health service (06) ==
LOC: ED 18:39 → MS3 23:29
PROVIDERS: Admitting Provider Family Medicine; Emergency Provider Emergency Medicine; PCP Family Medicine; Visit Provider Internal Medicine
DX: F01.50 Vascular dementia, unspecified severity, without behavioral disturbance, psychotic disturbance, mood disturbance, and anxiety (principal); I10 Essential (primary) hypertension; E11.51 Type 2 diabetes mellitus with diabetic peripheral angiopathy without gangrene; I25.10 Atherosclerotic heart disease of native coronary artery without angina pectoris; Z86.73 Personal history of transient ischemic attack (TIA), and cerebral infarction without residual deficits; M75.02 Adhesive capsulitis of left shoulder; Z79.899 Other long term (current) drug therapy; Z23 Encounter for immunization; Z79.84 Long term (current) use of oral hypoglycemic drugs; Z79.02 Long term (current) use of antithrombotics/antiplatelets; Z79.82 Long term (current) use of aspirin; F17.200 Nicotine dependence, unspecified, uncomplicated; J44.9 Chronic obstructive pulmonary disease, unspecified; R11.2 Nausea with vomiting, unspecified; E87.1 Hypo-osmolality and hyponatremia; E87.6 Hypokalemia
CPT/HCPCS: 70450; 73030; 80048; 80053; 81001; 82962; 83735; 85025; 87077; 87086; 87088; 93005; 96360; 96361; 96372; 97162; 97166; 99218; 99285; J7030; P9612; 90686; A4216; G0378; J3486

== ENCOUNTER 2020-08-07 15:02 | Emergency (ER) | payer MEDICARE, SELFPAY ==
[2020-08-07 15:03] VITALS: BP 98/63; PULSE 96; RESP 18; TEMP 36.2; O2SAT 93; BMI 25.0
[2020-08-07 15:07] VITALS: BP 98/63; PULSE 96; RESP 18; TEMP 36.2; O2SAT 93
--- NOTE | 2020-08-07 15:30 | ED.DCSUM_ITS ---
History of Present Illness Chief Complaint: Lower Extremity Injury Informant: Patient, Family Onset: Days Context: Gradual Onset Current Severity: Moderate Maximum Severity: Moderate Narrative: Patient presents secondary to left hip pain. History is provided by granddaughter at bedside as patient is very hard of hearing. Granddaughter states that the patient's tries to help do physical therapy at home by ranging her lower extremities. Over the last 3 days patient has been complaining of left hip and proximal leg pain. They are unsure if she may have been hurt with these ranging exercises. - Past Medical History (1) Neurogenic bladder Status: Chronic (2) Diabetes Status: Chronic (3) HTN (hypertension) Status: Chronic (4) PAD (peripheral artery disease) Status: Chronic Past Medical History - Allergies and Home Meds Allergies/Adverse Reactions: Allergies amoxicillin [From Augmentin] Allergy (Verified 08/07/20 15:10) Rash atorvastatin [From Lipitor] Allergy (Verified 08/07/20 15:10) Other clavulanic acid [From Augmentin] Allergy (Verified 08/07/20 15:10) Rash gabapentin Allergy (Verified 08/07/20 15:10) Nausea quinapril [From Accupril] Allergy (Verified 08/07/20 15:10) Rash fluoxetine Adverse Reaction (Verified 08/07/20 15:10) Other Primary Care Physician: Cabrera Taylor III, MD [Primary Care Provider] - Prior records reviewed: Yes Surgical History: total hip arthroplasty, - - Bladder Surgery x2; right carotid endarectomy; and bladder stimulator placed at back Lives: Spouse/ Significant Other Smoking Status: Current every day smoker - Family History Paternal Family History: Family History (Last Reviewed 04/19/20 @ 11:33 by Qian Thrasher) Mother Tuberculosis Father Heart disease CVA (cerebral vascular accident) Sister Multiple sclerosis Brother Heart disease Family History: Reports: No pertinent history Review of Systems General: Denies: Chills, Fever Eyes: Denies: Visual changes - bilaterally ENT: Denies: Bilateral ear pain Cardiovascular: Denies: Chest pain Respiratory: Denies: Dyspnea Gastrointestinal: Denies: Abdominal pain Musculoskeletal: Reports: Extremity Pain Skin: Denies: Rash Hematologic: Denies: Easy bruising, Easy bleeding Allergy: Denies: Uticaria Physical Exam Vital Signs/Narrative: Vital Signs Temp Pulse Resp BP Pulse Ox 08/07/20 15:07 97.2 F L 96 18 98/63 93 08/07/20 15:03 97.2 F L 96 18 98/63 93 Inital Vital Signs reviewed: Yes General: Well nourished, Well developed Head: Normocephalic ENT: Moist mucous membranes Cardiovascular: Regular rate, Regular rhythm Respiratory: No distress, Wheezing - Expiratory wheezes throughout Abdomen: Soft, Nontender Extremities: - - Mild tenderness around the left hip. Strong distal pulses. Patient has chronic decreased range of motion and appears to be largely bedbound. Neurological: Alert Psychological: Normal affect Diagnostic/Tx/Re-eval Impressions Hip/Pelvis X-Ray 08/07/20 15:58 IMPRESSION: Remote fracture and pin fixation of left femur, possibility of new fracture is raised. Electronically Signed: Bessie Jono, at 17:01 EST Tel , Service support , 08/07/20 15:58 HIP, UNI W/ Pelvis 2-3 Views [RAD] Stat 08/07/20 17:06 CT Lower [Extremity Lower without Contra] [CT] Stat - Medical Decision Making X-rays are reviewed. Patient already has pin and lianne in place from a prior fracture. There is a questionable new acute fracture at the base of the femoral neck. I discussed this with the granddaughter and offered to CT this to further evaluate whether there was a no acute fracture, however did explain that the treatment would not change as she already has a screw and pin in place. At this time granddaughter would prefer not to mess with a CAT scan and does presume it is positive. I advised her this would just be very limited use of that left leg for the next 6 weeks. She states that the patient already is completely nonweightbearing and bedbound. She does voice frustration and fatigue from caring for her at home. They do have home health that comes in. I will have high school social studies tutor speak with them to see if there are any additional services or if there interested in placement. ED Disposition - Plan for ED Patient: Disposition: Home or Assisted Living Diagnosis: Contusion of left hip Instructions: ED Sprain Hip Referrals: Cabrera Taylor III, MD [Primary Care Provider] - Additional Instructions: As discussed, the x-rays of the hip show the old hip fracture that has already been pinned. There is a question of a new acute fracture. Further imaging studies were deferred because surgical treatment has already been placed and there would be no difference in treatment if there is an acute fracture at the questionable location. Patient is to have limited weightbearing on the left lower extremity.
--- NOTE | 2020-08-07 15:58 | RAD_ITS ---
STUDY: X-RAY - PELVIS AND LEFT HIP REASON FOR EXAM: Female, 70 years old. C/O LEFT HIP PAIN/LEG PAIN FROM PREFORMING PHYSICAL THERAPY TO LLE TECHNIQUE: 3 views of the pelvis and hip. COMPARISON: None. FINDINGS: The skeleton is osteoporotic. There is remote left femoral fracture with compression pin fixation. However, there is mild irregularity in the base of the neck, possibly superimposed new fracture. Lesser trochanter has been chronically avulsed and is now part of heterotopic ossification. Remainder of the bones of the pelvis are intact. There are surgical clips in the right inguinal region and a vascular stent in the right proximal thigh. There is a left sacral stimulator. Large amount of stool is present in the rectum. There is no intestinal obstruction. RAD/HIP, UNI W/ Pelvis 2-3 Views IMPRESSION: Remote fracture and pin fixation of left femur, possibility of new fracture is raised. Electronically Signed: Bessie De La Cruz, at 17:01 EST Tel , Service support ,
--- NOTE | 2020-08-07 17:39 | CM.ED ---
Social Work Consult: Discharge Planning/Resources Informant: Dr. Rivas Met with patient and patient granddaughter, Desi in room. Introduced self and social work supervisor role. Patient lives with family. Patient family providing 24/hr care for patient in the home. Desi voices main concern is that patient is dependent for all mobility and transfers. Patient to have [facility] set up in the home. Patient active with [facility] for PT/OT/SN/[facility] DIPPER. Patient daughter, Chloé is working on PASSPORT application and turned in application 2 weeks ago. This social work supervisor educating patient and patient family that it can take weeks and even months to get PASSPORT services set up in the home. Main concern for patient family is that patient is dependent for transfers. This social work supervisor exploring possible option of long term stay for respite as patient family report to be worn out. Patient family not interested in respite. This social work supervisor inquiring about hospice services, patient family reports to have met with hospice services but not sure if it is what we want. Chloé plans to call [facility] tomorrow to check on the status of the [facility] lift and to possibly call hospice services again to meet. Active support and listening provided. This social work supervisor encouraged patient family to continue to follow up on PASSPORT referral. Family confirms to not be able to afford private duty aides for patient in the home. Updated medical team on above. PLAN: Discharge to home with family. Mohamud FOUNTAIN, RAO
[2020-08-07] MEDS: HYDROcodone Bitartrate/Apap 5/325 Tablet PO (17:48)
--- NOTE | 2020-08-07 17:48 | NURSING ---
[facility] ETA IS 90 MIN
[2020-08-07 17:50] VITALS: BP 130/95; PULSE 97; RESP 16; O2SAT 95
[2020-08-07 18:30] VITALS: BP 140/98; PULSE 91; RESP 18; O2SAT 99
== END 2020-08-07 18:54 | disposition home or self-care (01) ==
PROVIDERS: Emergency Provider Emergency Medicine; PCP Family Medicine
DX: S70.02XA Contusion of left hip, initial encounter (principal); F17.200 Nicotine dependence, unspecified, uncomplicated; E11.51 Type 2 diabetes mellitus with diabetic peripheral angiopathy without gangrene; I10 Essential (primary) hypertension; X58.XXXA Exposure to other specified factors, initial encounter; Z79.84 Long term (current) use of oral hypoglycemic drugs; Z79.82 Long term (current) use of aspirin
CPT/HCPCS: 73502; 99284

== ENCOUNTER 2020-10-18 17:13 | Emergency (ER) | payer MEDICARE, SELFPAY ==
[2020-10-18] VITALS (7 sets, daily range): BP systolic 106–121; BP diastolic 72–82; PULSE 98–111; RESP 15–24; TEMP 36.3–37; O2SAT 90–99; BMI 23.6
--- NOTE | 2020-10-18 17:30 | CT_ITS ---
STUDY: CT PELVIS WITH CONTRAST REASON FOR EXAM: Female, 70 years old. COCCYX WOUND. Hx of TIA, dementia, HTN and rt carotid endarterectomy RADIATION DOSAGE (If Supplied By Facility): CTDIvol = ( 17.28 ) mGy, DLP = ( 610.44 ) mGycm TECHNIQUE: Transaxial imaging of the pelvis was performed with intravenous contrast. Sagittal and coronal reformations are included. Individualized dose optimization techniques were used for this CT. COMPARISON: Pelvic x-ray dated August 07, 2020 FINDINGS: Left hip intramedullary nail system without demonstrated complications. Healed intertrochanteric fracture deformity of the left femur. Right superficial femoral artery vascular stent noted. Electronic casing is present in the subcutaneous tissues of the left buttock with the catheter seen extending into the left sacral foramen and terminating in the piriformis region. No demonstrated cortical erosion or bony destruction or periosteal reaction to indicate active osteomyelitis of the lower coccygeal vertebra. The overlying soft tissues are mildly thickened/edematous possibly due to cellulitis or pressure wound. No abscess is seen. Normal urinary bladder. Normal visualized small intestine. Normal visualized colon. A large amount of stool is seen throughout the colon. A few diverticula of the distal colon are present. There is no pelvic fluid. There is no pelvic lymphadenopathy or mass lesion. There is diffuse atherosclerotic calcification of the pelvic arteries. Normal abdominal wall. There are diffuse degenerative changes of the visualized lumbar spine. CT/Pelvis WITH IV Contrast IMPRESSION: 1. No demonstrated cortical erosion or bony destruction or periosteal reaction to indicate active osteomyelitis of the lower coccygeal vertebra. The overlying soft tissues are mildly thickened/edematous possibly due to cellulitis or pressure wound. No abscess is seen. 2. Large amount of stool throughout the colon 3. Minor colonic diverticulosis Electronically Signed: Madhu Orellana MD at 19:50 EST , Service support ,
--- NOTE | 2020-10-18 17:33 | ED.DCSUM_ITS ---
- ER Visit Summary Date of Service: 10/18/20 Chief Complaint: Sacral decubitus ulcer History of Present Illness: The patient is a 70 F who presents with an open wound on her sacrum that has been constant for the past 2 weeks. Patient states the pain is burning. Patient states the pain is worse with sitting. Patient states nothing seems to be helping with the pain. Patient states the home health nurse that came out to evaluate her today was concerned that it may be starting to have some tunneling. The home health nurse contacted the patient's primary care physician who referred them to the emergency department for further evaluation. Patient denies any fevers or chills. Patient denies any nausea or vomiting. Physical Examination: Vital signs are stable. Patient is afebrile. Patient is in no acute distress. Skin is warm and dry. There is some erythema and induration over the sacrum. There is a grade 2 sacral decubitus ulcer. There is no active discharge or drainage. I do not feel any areas of tunneling. There is tenderness to palpation over the area. Abdomen is soft. Bowel sounds are normal. There is no tenderness. Cranial nerves II through XII are intact. Heart was regular rate and rhythm. Lungs are clear and equal bilaterally. Test Results: CBC was within normal limits. Comprehensive metabolic profile was essentially within normal limits. Urinalysis does not show any evidence of urinary tract infection. CT scan of the pelvis was obtained. There is no cortical erosion or bony destruction to indicate active osteomyelitis. There is some mild soft tissue swelling in the area of the decubitus ulcer. There is no abscess noted. This was interpreted by the radiologist and reviewed by myself. Emergency Department Course and Treatment: Patient is feeling better on reeval uation. Patient wants to go home. Patient and family were advised of the results. Patient was instructed to continue with home health dressing changes. Patient and family understood and was agreeable with the plan. All questions were answered. Disposition: Discharge home Impression: 1. Sacral decubitus ulcer This note was generated with [employer] dictation software. It may contain incorrect words, spelling, and punctuation that were not noted in review of the chart prior to signing ED Disposition - Plan for ED Patient: Disposition: Home or Assisted Living Diagnosis: Sacral decubitus ulcer, stage II Instructions: Pressure Ulcer Referrals: Cabrera Taylor III, MD [Primary Care Provider] - 5-7 Days
[2020-10-18] MEDS: 0.9% Normal Saline 1,000 ML 1000 ML IV (17:51)
[2020-10-18 18:08] LABS: Absolute Lymphocyte Count 1.55 X10^3/uL (0.83-4.51); Absolute Neutrophil Count 5.7 X10^3/uL (2.0-7.7); Basophil# 0.06 X10^3/uL; Basophil% 0.8 % (0-1); Eosinophil# 0.06 X10^3/uL; Eosinophils% 0.8 % (0-5); Hemoglobin 14.5 g/dL (12.0-15.0); Lymphocyte # 1.55 X10^3/ul (4.0); Lymphocyte % 19.7 % (19-41); Mean Corp Hgb Conc 34.5 g/dL (32-36); Mean Corpuscular Hgb 31.2 pg (27.0-32.0); Mean Corpuscular Volume 90.3 fL (81-99); Mean Platelet Vol. 9.4 fl (6.2-12.0); Monocyte# 0.51 X10^3/uL; Monocyte% 6.5 % (0-10); NRBC Flagged by Analyzer 0 % (0-5); Neutrophil # 5.65 X10^3/uL (2.7-7.7); Neutrophil % 71.9 % (47-70); Platelet Count 363 K/mm3 (150-450); RBC Distribution Width CV 13.9 % (11.6-14.6); RBC Distribution Width SD 46.1 fl (35.1-43.9); Red Blood Count 4.65 M/mm3 (4.2-5.4); White Blood Count 7.9 K/mm3 (4.4-11.0)
[2020-10-18 18:18] LABS: Bacteria 0 SEEN /hpf (None Seen); Mucous, Urine 0 SEEN /hpf (<or=2+); Red Blood Cells-Urine 0 SEEN /hpf (0-5); Squamous Epithelial Cells - UA 0 SEEN /hpf (5-10); White Blood Cells 0 SEEN /hpf (0-5)
[2020-10-18 18:27] LABS: ALB/GLOB Ratio 0.9 RATIO (0.9-2.4); AST(SGOT) 13 U/L (15-37); Alanine Aminotransfer ALT/SGPT 10 U/L (13-56); Albumin, Serum 3.1 g/dL (3.2-5.0); Alkaline Phosphatase 91 U/L (45-117); Anion Gap 7 (5-15); BUN 10 mg/dL (7-18); BUN/Creat Ratio 26.2 RATIO (10-20); Calcium,Total 9.4 mg/dL (8.5-10.1); Chloride 94 mmol/L (98-107); Creatinine, Serum 0.38 mg/dL (0.55-1.02); EST Glomerular Filtration Rate 177 mL/min (>60); Est Glom Filt Rate - Afr Amer 214 mL/min (>60); Estimated Creatinine Clearance 44.56 ml/min; Globulin 3.4 g/dL (2.2-4.2); Glucose 81 mg/dL (74-106); Potassium 3.7 mmol/L (3.5-5.1); Protein, Total 6.5 g/dL (6.4-8.2); Sodium Level 132 mmol/L (136-145)
[2020-10-18 18:32] LABS: Color, Urine Yellow (Yellow); Glucose, Dipstick Normal (Normal); Ketone-Dipstick Negative (Negative); Leukocyte Esterase-Dipstick Negative /ul (Negative); Nitrite-Dipstick Negative (Negative); Occult Blood-Urine Negative /ul (Negative); Protein-Dipstick Negative (Negative); Urine Bilirubin Dipstick Negative (Negative); Urine Clarity Clear (Clear); Urine Urobilinogen Normal (Normal)
== END 2020-10-18 22:20 | disposition home or self-care (01) ==
PROVIDERS: Emergency Provider Emergency Medicine; PCP Family Medicine
DX: L89.152 Pressure ulcer of sacral region, stage 2 (principal); F17.200 Nicotine dependence, unspecified, uncomplicated
CPT/HCPCS: 72193; 80053; 81001; 85025; 96360; 96361; 99285; J7030; Q9967

== ENCOUNTER → 2020-11-02 16:18 | Outpatient (CLI) | payer MEDICARE, SELFPAY ==
[2020-10-18 17:14] VITALS: BMI 23.6
== END ==
PROVIDERS: PCP Family Medicine; Referring Provider Family Medicine; Visit Provider Family Medicine
DX: L89.150 Pressure ulcer of sacral region, unstageable (principal)
CPT/HCPCS: 87070; 87077; 87186; 87205

== ENCOUNTER 2020-11-06 18:57 | Inpatient (IN) | payer MEDICARE, MEDICAID, SELFPAY ==
[2020-10-18 17:14] VITALS: BMI 23.6
[2020-11-06 18:59] VITALS: BP 98/80; PULSE 111; RESP 13; TEMP 37; O2SAT 89; BMI 24.2
[2020-11-06 19:02] VITALS: BP 98/80; PULSE 111; RESP 13; TEMP 37; O2SAT 89
--- NOTE | 2020-11-06 19:23 | ED.VIS.GEN ---
History of Present Illness Chief Complaint: Wound Informant: Patient, Family Onset: Weeks Context: Gradual Onset Current Severity: Moderate Maximum Severity: Moderate Narrative: Patient present secondary to continued coccyx pressure wound. Daughter states the wound developed in late September. She was seen here in the emergency room in early October and had a CT scan which did not reveal any tunneling. Recent wound culture revealed Morganella as well as E. coli. She was started on Cipro yesterday. Daughter presented to the house today to change dressing and noted the wound looked worse. PCP felt the patient should be brought in for repeat wound culture and possible debridement. Daughter states patient has been having low-grade fever at home. She denies chills. She is currently on [place] every 4 hours and having difficulty controlling her pain. 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 Status: Chronic Past Medical History - Allergies and Home Meds Allergies/Adverse Reactions: Allergies amoxicillin [From Augmentin] Allergy (Verified 11/06/20 18:58) Rash atorvastatin [From Lipitor] Allergy (Verified 11/06/20 18:58) Other clavulanic acid [From Augmentin] Allergy (Verified 11/06/20 18:58) Rash gabapentin Allergy (Verified 11/06/20 18:58) Nausea quinapril [From Accupril] Allergy (Verified 11/06/20 18:58) Rash fluoxetine Adverse Reaction (Verified 11/06/20 18:58) Other Primary Care Physician: Cabrera Taylor III, MD [Primary Care Provider] - Surgical History: total hip arthroplasty, - - Bladder Surgery x2; right carotid endarectomy; and bladder stimulator placed at back Smoking Status: Current every day smoker - Family History Paternal Family History: Family History (Last Reviewed 04/19/20 @ 11:33 by Qian Thrasher) Mother Tuberculosis Father Heart disease CVA (cerebral vascular accident) Sister Multiple sclerosis Brother Heart disease Family History: Reports: No pertinent history Review of Systems General: Reports: Fever. Denies: Chills Eyes: Denies: Visual changes - bilaterally ENT: Denies: Bilateral ear pain Cardiovascular: Denies: Chest pain Respiratory: Denies: Dyspnea, Cough Gastrointestinal: Denies: Abdominal pain Genitourinary: Denies: Dysuria Musculoskeletal: Reports: - - Coccyx pain Skin: Reports: Wounds Neurological: Reports: Weakness - Generalized weakness Hematologic: Denies: Easy bruising, Easy bleeding Allergy: Denies: Uticaria Physical Exam Vital Signs/Narrative: Vital Signs Temp Pulse Resp BP Pulse Ox 11/06/20 19:02 98.6 F 111 H 13 98/80 89 11/06/20 18:59 98.6 F 111 H 13 98/80 89 Inital Vital Signs reviewed: Yes General: Well nourished, Well developed Head: Normocephalic ENT: Moist mucous membranes Neck: Supple Cardiovascular: Regular rate, Regular rhythm Respiratory: No distress, CTA bilaterally Abdomen: Soft, Nontender, Normal bowel sounds Back: - - Patient logrolled to her side. She has a 4 x 6 cm necrotic wound over the coccyx. Mild drainage. No significant surrounding cellulitis. Neurological: Alert Psychological: Normal affect Diagnostic/Tx/Re-eval Laboratory Results 11/06/20 11/06/20 11/06/20 19:40 19:40 19:40 WBC 11.1 H RBC 4.56 Hgb 14.0 Hct 41.8 MCV 91.7 MCH 30.7 MCHC 33.5 RDW Std Deviation 46.5 H RDW Coeff of Mirza 13.8 Plt Count 502 H MPV 8.9 Immature Gran % (Auto) 0.300 Neut % (Auto) 83.0 H Lymph % (Auto) 8.4 L [place] % (Auto) 7.5 Eos % (Auto) 0.3 Baso % (Auto) 0.5 Absolute Neuts (auto) 9.2 H Absolute Lymphs (auto) 0.93 Nucleated RBC % 0 Sodium 132 L Potassium 3.5 Chloride 94 L Carbon Dioxide 31.0 Anion Gap 7 BUN 9 Creatinine 0.37 L Estim Creat Clear Calc 46.43 Est GFR (MDRD) Af Amer 222 Est GFR (MDRD) Non-Af 183 BUN/Creatinine Ratio 24.4 H Glucose 103 Lactic Acid Cancelled Calcium 9.4 Total Bilirubin 0.30 Direct Bilirubin 0.10 AST 5 L ALT 8 L Alkaline Phosphatase 98 Total Protein 6.9 Albumin 2.8 L Globulin 4.1 11/06/20 21:22 WBC RBC Hgb Hct MCV MCH MCHC RDW Std Deviation RDW Coeff of Mirza Plt Count MPV Immature Gran % (Auto) Neut % (Auto) Lymph % (Auto) [place] % (Auto) Eos % (Auto) Baso % (Auto) Absolute Neuts (auto) Absolute Lymphs (auto) Nucleated RBC % Sodium Potassium Chloride Carbon Dioxide Anion Gap BUN Creatinine Estim Creat Clear Calc Est GFR (MDRD) Af Amer Est GFR (MDRD) Non-Af BUN/Creatinine Ratio Glucose Lactic Acid 0.9 Calcium Total Bilirubin Direct Bilirubin AST ALT Alkaline Phosphatase Total Protein Albumin Globulin - Medical Decision Making Patient was given IV fluids here. Blood work is reviewed. White count is mildly elevated. Lactic acid is normal. Blood cultures are pending. Wound cultures both aerobic and anaerobic were obtained on exam. Based on her previous wound culture patient has been on Cipro twice daily for the past 24 hours. She will be given a dose IV here. She will need wound care to further address her wound. Family is interested in TCU or nursing placement following her hospital stay. ED Disposition - Plan for ED Patient: Disposition: Acute Care Hospital [facility] Diagnosis: Decubitus ulcer Referrals: Cabrera Taylor III, MD [Primary Care Provider] -
[2020-11-06] MEDS: fentaNYL 100 MCG/2 ML Ampul 25 MCG IV ×2 (19:37→20:29)
[2020-11-06] MEDS: 0.9% Normal Saline 1,000 ML 150 ML IV (19:37)
[2020-11-06 19:52] LABS: Absolute Lymphocyte Count 0.93 X10^3/uL (0.83-4.51); Absolute Neutrophil Count 9.2 X10^3/uL (2.0-7.7); Basophil# 0.05 X10^3/uL; Basophil% 0.5 % (0-1); Eosinophil# 0.03 X10^3/uL; Eosinophils% 0.3 % (0-5); Hematocrit 41.8 % (37-47); Lymphocyte # 0.93 X10^3/ul (4.0); Lymphocyte % 8.4 % (19-41); Mean Corp Hgb Conc 33.5 g/dL (32-36); Mean Corpuscular Hgb 30.7 pg (27.0-32.0); Mean Corpuscular Volume 91.7 fL (81-99); Mean Platelet Vol. 8.9 fl (6.2-12.0); Monocyte# 0.83 X10^3/uL; Monocyte% 7.5 % (0-10); NRBC Flagged by Analyzer 0 % (0-5); Neutrophil # 9.21 X10^3/uL (2.7-7.7); Platelet Count 502 K/mm3 (150-450); RBC Distribution Width CV 13.8 % (11.6-14.6); RBC Distribution Width SD 46.5 fl (35.1-43.9); Red Blood Count 4.56 M/mm3 (4.2-5.4); White Blood Count 11.1 K/mm3 (4.4-11.0)
[2020-11-06 20:07] LABS: AST(SGOT) 5 U/L (15-37); Alanine Aminotransfer ALT/SGPT 8 U/L (13-56); Albumin, Serum 2.8 g/dL (3.2-5.0); Alkaline Phosphatase 98 U/L (45-117); Anion Gap 7 (5-15); BUN 9 mg/dL (7-18); BUN/Creat Ratio 24.4 RATIO (10-20); Calcium,Total 9.4 mg/dL (8.5-10.1); Chloride 94 mmol/L (98-107); Creatinine, Serum 0.37 mg/dL (0.55-1.02); EST Glomerular Filtration Rate 183 mL/min (>60); Est Glom Filt Rate - Afr Amer 222 mL/min (>60); Estimated Creatinine Clearance 46.43 ml/min; Globulin 4.1 g/dL (2.2-4.2); Glucose 103 mg/dL (74-106); Potassium 3.5 mmol/L (3.5-5.1); Protein, Total 6.9 g/dL (6.4-8.2); Sodium Level 132 mmol/L (136-145)
[2020-11-06 21:10] VITALS: BP 110/78; PULSE 89; RESP 18; O2SAT 84
[2020-11-06 21:11] VITALS: RESP 17; O2SAT 98
[2020-11-06 21:56] LABS: Lactic Acid 0.9 mmol/L (0.4-1.9)
--- NOTE | 2020-11-06 22:44 | PCM.HP.STD ---
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 Status: Chronic (5) Diabetes Status: Chronic Qualifiers: Diabetes mellitus type: type 2 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: without penitentiary use Diabetes mellitus complication status: with other specified complication Qualified Code(s): E11.69 - Type 2 diabetes mellitus with other specified complication (6) Neurogenic bladder Status: Chronic (7) HTN (hypertension) Status: Chronic Qualifiers: Hypertension type: essential hypertension Qualified Code(s): I10 - Essential (primary) hypertension (8) PAD (peripheral artery disease) Status: Chronic (9) Tobacco abuse Status: Chronic History of Present Illness Date of Admission: 11/06/20 Chief Complaint: Worsening coccyx pressure wound The patient is a 70 y/o F w/ PMHx: CAD/PAD, Carotid diseas s/p R CEA, HTN, HLD, PVD, Diabetes mellitus type II, Neurogenic bladder, Chronic back pain, Hx TIA/CVA, history of chronic wounds including recent chronic buttock decubitus ulcer who presents to the [facility] ED on 11/06/20 with history of ongoing issues with her coccyx region with a wound which was initially present starting in September and is continued to progressively worsen despite wound care with notable onset foul odor and discharge without specifically associated fevers and chills prompting patient to present to the ED for evaluation. Patient has chronic lower extremity pain and discomfort as well as cramping and has been severely debilitated with decreased movement and poor offloading. Work-up in the ED included T 98.6, heart rate 111, BP 98/80, respiratory rate 13, initially 89% on room air with improvement to 98% on 3 L nasal cannula, CBC with WC 11.2, hemoglobin 14, platelet 502 with left shift, CMP with sodium 132, chloride 94, BUN/creatinine 9/0.34, lactic acid 0.9, culture x2 pending per ED, buttock decubitus ulcer Gram stain as well as wound culture pending. In the ED patient ministered ciprofloxacin, normal saline, fentanyl. Recent cultures from wound buttock 11/02/2020 with Morganella, E. coli, gram-negative lianne possibly Pseudomonas, gram-positive lianne with sensitivities both positive for ciprofloxacin as well as several other agents, resistant to Ancef, Unasyn, ampicillin. Past Medical History Past Medical History (Chronic Problems): Chronic Problems (Last Reviewed 04/19/20 @ 11:33 by Qian Thrasher) COPD (chronic obstructive pulmonary disease) (Chronic) Chronic respiratory failure with hypoxia (Chronic) Ulcer of right lower leg (Chronic) Ulcer of right groin with fat layer exposed (Chronic) Wound of right lower extremity (Chronic) Right lower extremity with fat layer exposed Compression fracture (Chronic) Debility (Chronic) Hx of tonsillectomy (Chronic) Hx of bladder repair surgery (Chronic) History of partial hysterectomy (Chronic) History of lumpectomy of right breast (Chronic) History of right-sided carotid endarterectomy (Chronic) 2008 Hx TIA/stroke w/o resid (Chronic) Diabetes (Chronic) Neurogenic bladder (Chronic) Neurogenic bladder (Chronic) HTN (hypertension) (Chronic) Chronic ulcer of left heel with fat layer exposed (Chronic) Decubitus ulcer of left heel, stage 4 (Chronic) PAD (peripheral artery disease) (Chronic) Tobacco abuse (Chronic) Medical History: Medical History (Last Reviewed 04/19/20 @ 11:33 by Qian Thrasher) Hx TIA/stroke w/o resid (Chronic) Z86.73 Diabetes (Chronic) E11.9 Neurogenic bladder (Chronic) N31.9 Urinary retention (Acute) R33.9 Neurogenic bladder (Chronic) N31.9 Urge incontinence (Acute) N39.41 Nocturia (Acute) R35.1 Intertrochanteric fracture of left hip (Acute) S72.142A Left humeral fracture (Resolved) S42.302A HTN (hypertension) (Chronic) I10 Chronic ulcer of left heel with fat layer exposed (Chronic) L97.422 Decubitus ulcer of left heel, stage 4 (Chronic) L89.624 PAD (peripheral artery disease) (Chronic) I73.9 Tobacco abuse (Chronic) Z72.0 CAD (coronary artery disease) I25.10 Cervical radiculitis M54.12 Frozen shoulder M75.00 Gout M10.9 Neuropathy G62.9 Osteoporosis M81.0 Peripheral vascular disease I73.9 Type II diabetes mellitus E11.9 Vitamin D deficiency E55.9 Chronic neck pain M54.2, G89.29 Allergies amoxicillin [From Augmentin] Allergy (Verified 11/06/20 18:58) Rash atorvastatin [From Lipitor] Allergy (Verified 11/06/20 18:58) Other clavulanic acid [From Augmentin] Allergy (Verified 11/06/20 18:58) Rash gabapentin Allergy (Verified 11/06/20 18:58) Nausea quinapril [From Accupril] Allergy (Verified 11/06/20 18:58) Rash fluoxetine Adverse Reaction (Verified 11/06/20 18:58) Other Home Medications: Ambulatory Orders Medication Instructions Recorded Hydrochlorothiazide [Hctz] 12.5 mg PO DAILY 06/16/18 Losartan Potassium [Cozaar] 100 mg PO DAILY 06/16/18 Rosuvastatin Calcium 5 mg PO QHS 09/08/18 Clopidogrel Bisulfate [Plavix] 75 mg PO DAILY 02/12/19 metFORMIN (XR) [Glucophage Xr] 500 mg PO BID 04/30/20 Hydrocodone/Acetaminophen 7.5 - 325 mg PO BID 08/07/20 [Hydrocodon-Acetaminophen 5-325] Amlodipine [Norvasc] 10 mg PO DAILY 11/06/20 Aspirin [Aspirin, Baby] 81 mg PO DAILY@0800 11/06/20 Ciprofloxacin [Cipro] 500 mg PO BID 11/06/20 Cyclobenzaprine HCl 10 mg PO BID 11/06/20 Docusate Sodium [Colace] 100 mg PO BID 11/06/20 Ipratropium/Albuterol Sulfate 3 ml INHALATION Q4H.RT 11/06/20 [Duoneb] Lansoprazole [Prevacid] 30 mg PO DAILY 11/06/20 Multivitamin with Minerals 1 ea PO DAILY 11/06/20 [Multiple Vitamin] Naproxen [Naprosyn] 500 mg PO BID PRN PRN 11/06/20 Surgical History: Surgical History (Last Reviewed 04/19/20 @ 11:33 by Qian Thrasher) Hx of tonsillectomy (Chronic) Z90.89 Hx of bladder repair surgery (Chronic) Z98.890 History of partial hysterectomy (Chronic) Z90.711 History of lumpectomy of right breast (Chronic) Z98.890 History of right-sided carotid endarterectomy (Chronic) Z98.890 2008 Surgical History: total hip arthroplasty, - - Bladder Surgery x 2, right carotid endarectomy, bladder stimulator, bilateral lower extremity PCI most recently 2018 left iliac and left SFA, left hip surgery following fracture, hysterectomy. 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 Tobacco Use: Cigarettes Alcohol: None Drugs: None - *Family History Paternal Family History: Family History (Last Reviewed 04/19/20 @ 11:33 by Qian Thrasher) Mother Tuberculosis Father Heart disease CVA (cerebral vascular accident) Sister Multiple sclerosis Brother Heart disease History Items: High Cholesterol, Heart Disease, Hypertension, Stroke Maternal Family History: Family History (Last Reviewed 04/19/20 @ 11:33 by Qian Thrasher) Mother Tuberculosis Father Heart disease CVA (cerebral vascular accident) Sister Multiple sclerosis Brother Heart disease History Items: Pulmonary Disease, - - Mother with history of tuberculosis. Review of Systems Constitutional: Reports: Anorexia, Malaise, Weakness, Fatigue. Denies: Chills, Fever, Weight Change HEENT: Denies: Head Aches, Sinus Congestion, Sinus Drainage Cardiovascular: Denies: Chest Pain, Palpitations Respiratory: Reports: Cough, Wheezing. Denies: Shortness of breath at rest, Sputum production Gastrointestinal: Denies: Abdominal Pain, Nausea, Vomiting Genitourinary: Denies: Dysuria Musculoskeletal: Reports: Back Pain, Joint Pain, Leg Pain, Muscle pain. Denies: Joint Tenderness Skin: Reports: Skin Changes, Wounds. Denies: Rash Neurological: Denies: Numbness, Tingling, Focal weakness Psychiatric: Denies: Anxiety, Depression, Homicidal Ideations, Suicidal Ideations Hematologic/ Lymphatic: Reports: Easy Bruising, Easy Bleeding VTE Information - Inpt Only VTE Present on Admission: No VTE Mechan Device Prophylaxis: SCD's VTE Pharm Prophylaxis ordered?: Yes Patient Problems: Active and Suspected Problems (Last Reviewed 04/19/20 @ 11:33 by Qian Thrasher) Decubitus ulcer (Acute) Subjective: Patient laying in the ED bed, severely uncomfortable, notes ongoing intermittent lower extremity cramping, foul odor in the room secondary to wound. Objective: Physical Examination: General: awake, alert, oriented x 3 and cooperative, extremely hard of hearing, laying in the ED bed, uncomfortable appearing, intermittent cramps to her lower extremities. Skin: normal color, turgor, no icterus, cyanosis except significant posterior coccyx wound with periwound erythema, possible undermining, unclear exact depth secondary to necrotic tissue appearance with foul smell and slough. HEENT: AT/NC, EOMI, PERRLA, mildly dry MM, no carotid bruits or JVD noted. Lungs: Diminished breath sounds, greater bases, moderate effort, soft occasional end expiratory wheezing noted, no rales or rhonchi. Heart: Regular rate and rhythm; no gallop, rub audible. Abdomen: soft, NTTP, ND, mildly hyperactive BS, no HSM. Extremities: no cyanosis or clubbing, noted muscle loss, intermittent cramping to the lower extremities. Neurological: patient awake, alert, oriented as noted; cognitive function appears baseline intact although difficult assessment secondary to severity of hearing loss; pupils equally reactive to light and accomodation; cranial nerves II-XII grossly normal, moving all 4 extremities, strength severely global decrease secondary to acute presentation. Psychiatric: affect appears uncomfortable, no acute evidence of depressive or anxiety feelings. - Physical Exam Vitals/I&O's: Vital Signs Temp Pulse Resp BP Pulse Ox 98.6 F 89 17 110/78 98 11/06/20 19:02 11/06/20 21:10 11/06/20 21:11 11/06/20 21:10 11/06/20 21:11 Oxygen Flow Rate (L/min) 3 Oxygen Delivery Method Nasal Cannula Weight: 145 lb 8.081 oz Body Mass Index (BMI) 24.2 Finger Stick Blood Glucose 156 Laboratory Results 11/06/20 19:40: WBC 11.1 H, RBC 4.56, Hgb 14.0, Hct 41.8, MCV 91.7, MCH 30.7, MCHC 33.5, RDW Std Deviation 46.5 H, RDW Coeff of Mirza 13.8, Plt Count 502 H, MPV 8.9, Immature Gran % (Auto) 0.300, Neut % (Auto) 83.0 H, Lymph % (Auto) 8.4 L, [place] % (Auto) 7.5, Eos % (Auto) 0.3, Baso % (Auto) 0.5, Absolute Neuts (auto) 9.2 H, Absolute Lymphs (auto) 0.93, Nucleated RBC % 0 11/06/20 19:40: Sodium 132 L, Potassium 3.5, Chloride 94 L, Carbon Dioxide 31.0, Anion Gap 7, BUN 9, Creatinine 0.37 L, Estim Creat Clear Calc 46.43, Est GFR (MDRD) Af Amer 222, Est GFR (MDRD) Non-Af 183, BUN/Creatinine Ratio 24.4 H, Glucose 103, Calcium 9.4, Total Bilirubin 0.30, Direct Bilirubin 0.10, AST 5 L, ALT 8 L, Alkaline Phosphatase 98, Total Protein 6.9, Albumin 2.8 L, Globulin 4.1 11/06/20 19:40: Lactic Acid Cancelled 11/06/20 21:22: Lactic Acid 0.9 Current Medications Sodium Chloride () 1,000 mls @ 150 mls/hr IV .[id number] HUANG Last Admin: 11/06/20 19:37 Dose: 150 mls/hr Documented by: Ciprofloxacin (Cipro) 400 mg in 200 mls @ 200 mls/hr IV X1 ONE Stop: 11/06/20 23:27 Assessment/Plan All Active Problems (Last Reviewed 04/19/20 @ 11:33 by Qian Thrasher) acute delerium (Acute) Decubitus ulcer (Acute) Ischemia of right lower extremity (Acute) Injury of right common femoral artery (Acute) Postoperative wound dehiscence (Acute) COPD exacerbation (Acute) Urinary retention (Acute) Urge incontinence (Acute) Nocturia (Acute) Intertrochanteric fracture of left hip (Acute) Left humeral fracture (Resolved) The patient is a 70 y/o F w/ PMHx: CAD/PAD, Carotid diseas s/p R CEA, HTN, HLD, PVD, Diabetes mellitus type II, Neurogenic bladder, Chronic back pain, Hx TIA/CVA, history of chronic wounds including recent chronic buttock decubitus ulcer who presents to the [facility] ED on 11/06/20 with history of ongoing issues with her coccyx region with a wound which was initially present starting in September and is continued to progressively worsen despite wound care with notable onset foul odor and discharge without specifically associated fevers and chills prompting patient to present to the ED for evaluation. 1. Infected Morganella morganii, E. coli, GNR possibly Pseudomonas, GPR buttock decubitus ulcer wound: Will admit to medical surgical floor, maintain on IV ciprofloxacin based on most recent cultures pending infectious disease consultation, will consult Dr. Aguirre, pending wound culture and will attempt to additionally obtain Wound MRSA PCR of oh as noted did have recent 11/02/2020 culture with Morganella, E. coli, gram-negative lianne possibly Pseudomonas and gram-positive rods sensitive both to ciprofloxacin, plan repeat CBC in AM, will consult wound RN, dressings per wound RN discretion, monitor erythema outline with VS checks, aggressive offloading. 2. PAD, CAD: We will continue patient aspirin, temporarily holding plavix, statin therapy, losartan, not on beta-heath therapy, from a review of most recent interventions with family patient had left iliac and left SFA intervention 02/10/[address] Taylor. 3. Diabetes mellitus type II with neuropathy: Hold oral home regimen, continue home insulin regimen, ADA diet, accu checks w/ ISS. 4. Hx TIA/CVA: We will continue aspirin, temporarily hold Plavix, continue statin, continue hypertensive regimen as well as diabetic regimen. 5. Hypertension: Continue home regimen including Norvasc, hydrochlorothiazide, losartan with hold parameters, PRN hydralazine. 6. Hyperlipidemia: Continue home statin regimen. 7. Neurogenic bladder: Patient with routine usage of pure wick at home, will continue. 8. Carotid disease: Status post right CEA, continue aspirin, temporarily hold statin, hypertensive regimen, diabetic regimen. 9. Chronic COPD with chronic hypoxic respiratory failure: Will maintain on chronic home oxygen, continue ATC duonebs, PRN albuterol, HOB, IS parameters. 10. Tobacco Abuse: Encouraged cessation, inpatient consultation per RT, NR if desired. 11. DVT prophylaxis: SCDs, Lovenox. 12. CODE status: Discussed CODE status at length including difference between FULL code, DNR-CCA and DNR-CC status. Following discussions about the differences in these status, requested Full Code Status. Advanced Care Planning Face to Face Time: 16 minutes. Inpatient E&M: 67778 Init Hosp L3 Procedures: 81004 Advncd Care Plan 30 Min
[2020-11-06] MEDS: Ciprofloxacin 400 MG/200 ML BAG 200 MG IV (22:47)
[2020-11-06 23:06] VITALS: BP 121/88; PULSE 108; RESP 16; O2SAT 97
[2020-11-07] VITALS (7 sets, daily range): BP systolic 127–155; BP diastolic 68–95; PULSE 77–100; RESP 16–20; TEMP 36.6–37.2; O2SAT 94–96; BMI 22.6; BMI 22.7
[2020-11-07 00:51] LABS: Magnesium 1.7 mg/dL (1.6-2.6)
--- NOTE | 2020-11-07 01:05 | NURSING ---
Pt is very irritable upon admission. Refused to put on a gown. Very [place] & cannot understand us with masks on. No family accompanied pt so we have no home med list to check. When asked who she wants her visitor to be she stated I have no one. I'll be out of here by tomorrow.
[2020-11-07] MEDS: 0.9% Normal Saline 1,000 ML 100 ML IV ×2 (01:34→12:32)
[2020-11-07] MEDS: oxyCODONE 5 MG Tablet PO (01:34)
[2020-11-07] MEDS: 0.9% Saline Lock 10 ML Syringe IV (01:34)
[2020-11-07 03:09] LABS: M R Staph aureus DNA By PCR Negative (Negative); Probe Check PASS; Specimen Processing Control PASS; Staph aureus DNA By PCR NEGATIVE (Negative)
[2020-11-07] MEDS: Morphine 2 MG/ML Syringe IV ×3 (03:54→21:06)
[2020-11-07 06:36] LABS: Absolute Lymphocyte Count 1.19 X10^3/uL (0.83-4.51); Absolute Neutrophil Count 7.5 X10^3/uL (2.0-7.7); Basophil# 0.03 X10^3/uL; Basophil% 0.3 % (0-1); Eosinophil# 0.06 X10^3/uL; Eosinophils% 0.6 % (0-5); Hematocrit 37.9 % (37-47); Hemoglobin 12.7 g/dL (12.0-15.0); Lymphocyte # 1.19 X10^3/ul (4.0); Lymphocyte % 12.5 % (19-41); Mean Corp Hgb Conc 33.5 g/dL (32-36); Mean Corpuscular Hgb 31.4 pg (27.0-32.0); Mean Corpuscular Volume 93.6 fL (81-99); Mean Platelet Vol. 9.2 fl (6.2-12.0); Monocyte# 0.73 X10^3/uL; Monocyte% 7.7 % (0-10); NRBC Flagged by Analyzer 0 % (0-5); Neutrophil # 7.48 X10^3/uL (2.7-7.7); Neutrophil % 78.4 % (47-70); Platelet Count 435 K/mm3 (150-450); RBC Distribution Width CV 13.8 % (11.6-14.6); RBC Distribution Width SD 47.1 fl (35.1-43.9); Red Blood Count 4.05 M/mm3 (4.2-5.4); White Blood Count 9.5 K/mm3 (4.4-11.0)
[2020-11-07 06:44] LABS: Bedside Glucose 135 mg/dL (70-110)
[2020-11-07 07:05] LABS: ALB/GLOB Ratio 0.6 RATIO (0.9-2.4); AST(SGOT) 8 U/L (15-37); Alanine Aminotransfer ALT/SGPT 8 U/L (13-56); Albumin, Serum 2.4 g/dL (3.2-5.0); Alkaline Phosphatase 86 U/L (45-117); Anion Gap 6 (5-15); BUN 8 mg/dL (7-18); BUN/Creat Ratio 28.8 RATIO (10-20); Calcium,Total 8.9 mg/dL (8.5-10.1); Chloride 96 mmol/L (98-107); Creatinine, Serum 0.28 mg/dL (0.55-1.02); EST Glomerular Filtration Rate 254 mL/min (>60); Est Glom Filt Rate - Afr Amer 308 mL/min (>60); Estimated Creatinine Clearance 46.43 ml/min; Globulin 3.7 g/dL (2.2-4.2); Glucose 135 mg/dL (74-106); Potassium 3.3 mmol/L (3.5-5.1); Protein, Total 6.1 g/dL (6.4-8.2); Sodium Level 132 mmol/L (136-145)
[2020-11-07] MEDS: Potassium Chloride Oral Tablet 20 MEQ 40 MEQ PO (08:07)
--- NOTE | 2020-11-07 08:13 | RAD_ITS ---
STUDY: X-RAY - LEFT SHOULDER REASON FOR EXAM: Female, 70 years old. PAIN, HX FX TECHNIQUE: 2 view(s) of the shoulder. COMPARISON: Comparison is made with prior study dated 06/18/2020. FINDINGS: There is moderate degenerative arthrosis of the glenohumeral articulation. Normal acromioclavicular joint. Normal acromion. Healing fracture of the surgical neck of the humerus with resultant deformity. The soft tissue structures are unremarkable. Normal visualized pulmonary apex. RAD/Shoulder min 2 Views IMPRESSION: Healing fracture of the surgical neck of the proximal left humerus. Residual deformity of the humerus persists. Electronically Signed: Erick Damico MD at 8:53 EST , Service support ,
[2020-11-07] MEDS: Glucerna Shake 120 ML LIQUID PO (08:19)
[2020-11-07] MEDS: Aspirin 81 MG TAB.CHEW PO (08:21)
--- NOTE | 2020-11-07 08:26 | NURSING ---
wound photo: sacrum
--- NOTE | 2020-11-07 10:53 | PCM.PN.HOSP ---
Patient Problems: Active and Suspected Problems (Last Reviewed 04/19/20 @ 11:33 by Qian Thrasher) Decubitus ulcer (Acute) Subjective: Patient seen and examined. SHe was admitted for worsening decubitus ulcer on the coccyx. Patient complained of back pain today, over the area of the coccyx. She lives at home with her spouse and daughter who are her primary care givers. She has been managed for infected decubitus ulcer of the coccyx. Review of symptoms otherwise negative. Potassium is 3.3 today. Vitals/I&O's: Vital Signs Temp Pulse Resp BP Pulse Ox 98.9 F 77 18 155/87 H 95 11/07/20 09:58 11/07/20 09:58 11/07/20 10:01 11/07/20 09:58 11/07/20 09:58 Oxygen Flow Rate (L/min) 3 Oxygen Delivery Method Room Air Weight: 136 lb 2 oz Body Mass Index (BMI) 22.6 Finger Stick Blood Glucose 156 Intake and Output for Last 24 Hours 11/05/20 11/06/20 11/07/20 23:59 23:59 23:59 Intake Total 200 / 200 915 / 915 Output Total 400 / 400 Balance 200 / 200 515 / 515 General: Alert, Cooperative, Lethargic, - - very hard of hearing HEENT: Atraumatic, PERRLA, EOMI, Normocephalic Oral: Dry Mucosa Neck: Supple, No JVD, Negative Carotid Bruits Lungs: - - mild wheezing in all lung peguero bilaterally. Cardiovascular: Regular rate, Regular Rhythm, Normal S1, Normal S2, No murmurs Abdomen: Bowel Sounds Present, Soft, Non Tender Extremities: No edema, Capillary Refill Less than 3 Seconds Skin: No rashes, No breakdown, - - has large very offensive smelling decubitus ulcer over the sacrum, with the floor filled with slough, has a greenish offensive discharge Musculoskeletal: No Tenderness to Palpation of Joints or Extremities Lymphatic: No Cervical, Supraclavicular, or Inguinal Adenopathy Neurological: Cranial nerves II-XII grossly intact, Neuro grossly intact, Motor Exam 5/5 strength throughout Psych/Mental Status: Normal Affect, Appropriate, Alert and oriented to time, place, person, mood and affect Microbiology Past 72 Hours 11/06/20 20:18 Ulcer, Decubitus - Buttock Gram Stain - Final Laboratory Results 11/06/20 19:40: WBC 11.1 H, RBC 4.56, Hgb 14.0, Hct 41.8, MCV 91.7, MCH 30.7, MCHC 33.5, RDW Std Deviation 46.5 H, RDW Coeff of Mirza 13.8, Plt Count 502 H, MPV 8.9, Immature Gran % (Auto) 0.300, Neut % (Auto) 83.0 H, Lymph % (Auto) 8.4 L, Phelps % (Auto) 7.5, Eos % (Auto) 0.3, Baso % (Auto) 0.5, Absolute Neuts (auto) 9.2 H, Absolute Lymphs (auto) 0.93, Nucleated RBC % 0 11/06/20 19:40: Sodium 132 L, Potassium 3.5, Chloride 94 L, Carbon Dioxide 31.0, Anion Gap 7, BUN 9, Creatinine 0.37 L, Estim Creat Clear Calc 46.43, Est GFR (MDRD) Af Amer 222, Est GFR (MDRD) Non-Af 183, BUN/Creatinine Ratio 24.4 H, Glucose 103, Calcium 9.4, Total Bilirubin 0.30, Direct Bilirubin 0.10, AST 5 L, ALT 8 L, Alkaline Phosphatase 98, Total Protein 6.9, Albumin 2.8 L, Globulin 4.1 11/06/20 19:40: Lactic Acid Cancelled 11/06/20 19:40: Magnesium 1.7 11/06/20 21:22: Lactic Acid 0.9 11/07/20 01:40: S.aureus Protein A PCR NEGATIVE, MRSA (PCR) Negative 11/07/20 05:15: WBC 9.5, RBC 4.05 L, Hgb 12.7, Hct 37.9, MCV 93.6, MCH 31.4, MCHC 33.5, RDW Std Deviation 47.1 H, RDW Coeff of Mirza 13.8, Plt Count 435, MPV 9.2, Immature Gran % (Auto) 0.500, Neut % (Auto) 78.4 H, Lymph % (Auto) 12.5 L, Phelps % (Auto) 7.7, Eos % (Auto) 0.6, Baso % (Auto) 0.3, Absolute Neuts (auto) 7.5, Absolute Lymphs (auto) 1.19, Nucleated RBC % 0 11/07/20 05:15: Sodium 132 L, Potassium 3.3 L, Chloride 96 L, Carbon Dioxide 30.0, Anion Gap 6, BUN 8, Creatinine 0.28 L, Estim Creat Clear Calc 46.43, Est GFR (MDRD) Af Amer 308, Est GFR (MDRD) Non-Af 254, BUN/Creatinine Ratio 28.8 H, Glucose 135 H, Calcium 8.9, Total Bilirubin 0.30, AST 8 L, ALT 8 L, Alkaline Phosphatase 86, Total Protein 6.1 L, Albumin 2.4 L, Globulin 3.7, Albumin/Globulin Ratio 0.6 L 11/07/20 06:33: POC Glucose 135 H Current Medications Acetaminophen (Acetaminophen 325 Mg Tablet) 650 mg PO Q6H PRN PRN PRN Reason: Pain Score 1-10/Temp > 100.7 F Al Hydroxide/Mg Hydroxide (Mag Hydrox/Al Hydrox/Simeth 30 Ml Udc) 30 ml PO Q6H PRN PRN PRN Reason: Gastric Burning Albuterol Sulfate (Albuterol 2.5 Mg/3 Ml Vial.Neb.) 2.5 mg INHALATION Q2H PRN PRN PRN Reason: Dyspnea, wheezing Albuterol/Ipratropium (Ipratropium/Albuterol Sulfate 3 Ml Ampul.Neb) 3 ml INHALATION Q4H.RT [facility] Amlodipine Besylate (Amlodipine 10 Mg Tablet) 10 mg PO DAILY [facility] Aspirin (Aspirin 81 Mg Tab.Chew) 81 mg PO DAILY@0800 [facility] Last Admin: 11/07/20 08:21 Dose: 81 mg Documented by: Clopidogrel Bisulfate (Clopidogrel Bisulfate 75 Mg Tablet) 75 mg PO DAILY [facility] Cyclobenzaprine HCl (Cyclobenzaprine Hcl 10 Mg Tablet) 10 mg PO BID [facility] Docusate Sodium (Docusate Sodium 100 Mg Capsule) 100 mg PO BID [facility] Enoxaparin Sodium (Enoxaparin 40 Mg/0.4 Ml Syringe) 40 mg SC DAILY [facility] Guaifenesin (Guaifenesin 10 Ml Udc (200mg/10ml)) 20 ml PO Q4H PRN PRN PRN Reason: COUGH Hydralazine HCl (Hydralazine 20 Mg/Ml Vial) 10 mg IV Q4H PRN PRN PRN Reason: SBP > 160 Hydrochlorothiazide (Hydrochlorothiazide 12.5mg) 12.5 mg PO DAILY [facility] Sodium Chloride () 1,000 mls @ 100 mls/hr IV .Q10H [facility] Last Admin: 11/07/20 01:34 Dose: 100 mls/hr Documented by: Ciprofloxacin (Cipro) 400 mg in 200 mls @ 200 mls/hr IV Q12 [facility] Insulin Human Lispro (Insulin Lispro 100 Unit/Ml Insuln.Pen) 0 unit [facility]; Protocol Last Admin: 11/07/20 06:40 Dose: Not Given Documented by: Lorazepam (Lorazepam 2 Mg/Ml Syringe) 0.5 mg IV Q6H PRN PRN PRN Reason: severe muscle cramps Losartan Potassium (Losartan Potassium 100 Mg Tablet) 100 mg PO DAILY [facility] Magnesium Hydroxide (Magnesium Hydroxide 30 Ml Udc) 30 ml PO DAILY PRN PRN PRN Reason: Constipation Melatonin (Melatonin 3 Mg Tablet) 3 mg PO QHS PRN PRN PRN Reason: INSOMNIA Morphine Sulfate (Morphine 2 Mg/Ml Syringe) 2 mg IV Q3H PRN PRN PRN Reason: Pain Score 6-10 Last Admin: 11/07/20 08:07 Dose: 2 mg Documented by: Nicotine (Nicotine 21 Mg Patch) 21 mg TD DAILY [facility] Nutritional Formula (Lactose Free) (Glucerna Shake 120 Ml Liquid) 120 ml PO TIDCM [facility] Last Admin: 11/07/20 08:19 Dose: 120 ml Documented by: Ondansetron HCl (Ondansetron 4 Mg/2 Ml Vial) 4 mg IV Q8H PRN PRN PRN Reason: NAUSEA/VOMITING Oxycodone HCl (Oxycodone 5 Mg Tablet) 5 mg PO Q4H PRN PRN PRN Reason: Pain Score 4-5 Last Admin: 11/07/20 01:34 Dose: 5 mg Documented by: Pantoprazole Sodium (Pantoprazole Sodium 40 Mg Tablet) 40 mg PO DAILY [facility] Prochlorperazine Edisylate (Prochlorperazine 10 Mg/2 Ml Vial) 5 mg IV Q4H PRN PRN PRN Reason: Breakthrough nausea/vomiting Psyllium Hydrophilic Mucilloid (Psyllium 1 Packet) 1 packet PO DAILY PRN PRN PRN Reason: Constipation Rosuvastatin Calcium (Rosuvastatin Calcium 5 Mg Tablet) 5 mg PO QHS [facility] Sodium Chloride (0.9% Saline Lock 10 Ml Syringe) 10 - 40 ml IV UD PRN PRN Reason: SALINE FLUSH Last Admin: 11/07/20 01:34 Dose: 10 ml Documented by: Sodium Hypochlorite (Dakin's Bette Half Strength (=0.25%)) 1 applic TOPICAL DAILY [facility]; Protocol Throat Lozenges (Benzocaine/Menthol 1 Lozenge) 1 lozenge MUCOUS MEM Q2H PRN PRN PRN Reason: SORE THROAT STROKE Vital Signs/Narrative: Vital Signs Temp Pulse Resp BP Pulse Ox 11/07/20 10:01 18 11/07/20 09:58 98.9 F 77 18 155/87 H 95 Medical Necessity - Tobacco Use Smoking Status: Current every day smoker - Patient with ongoing 1 pack/day cigarette tobacco usage since use. Tobacco Use: Cigarettes Assessment/Plan All Active Problems (Last Reviewed 04/19/20 @ 11:33 by Qian Thrasher) acute delerium (Acute) Decubitus ulcer (Acute) Ischemia of right lower extremity (Acute) Injury of right common femoral artery (Acute) Postoperative wound dehiscence (Acute) COPD exacerbation (Acute) Urinary retention (Acute) Urge incontinence (Acute) Nocturia (Acute) Intertrochanteric fracture of left hip (Acute) Left humeral fracture (Resolved) #Infected decubitus ulcer of the coccyx wound culture done on 10/23/2020 grew E coli and gram negative rods, possibly Pseudomonas nand Morganella wound care and plastic surgery consulted get wound cultures on IV ciprofloxacin #PAd and CAD: on aspirin, plavix on hold as she may need surgery; on statin and losartan. Had stents placed in left iliac and left superior femoral arteries in 2019 #hypertension: on Norvasc, hydrochlorothiazide and losartan. IV hydralazine as needed #Hyperlipidemia: On statin #Chronic hypoxic respiratory failure due to COPD: On home oxygen. Breathing treatments with bronchodilators. Still continues to smoke. Counseled to quit. DVT prophylaxis: lovenox Inpatient E&M: [id number] [facility] L[facility]
[2020-11-07] MEDS: Pantoprazole Sodium 40 MG Tablet PO (10:56)
[2020-11-07] MEDS: Ciprofloxacin 400 MG/200 ML BAG 200 MG IV (10:56)
[2020-11-07] MEDS: cycloBENZAPRine HCl 10 MG Tablet PO ×2 (10:56→21:06)
[2020-11-07] MEDS: Clopidogrel Bisulfate 75 MG Tablet PO (10:56)
[2020-11-07] MEDS: amLODIPine 10 MG Tablet PO (10:57)
[2020-11-07] MEDS: Docusate Sodium 100 MG Capsule PO ×2 (10:57→21:06)
[2020-11-07] MEDS: hydroCHLOROthiazide 12.5mg 12.5 MG PO (10:57)
[2020-11-07] MEDS: Losartan Potassium 100 MG Tablet PO (10:57)
[2020-11-07 12:05] LABS: Bedside Glucose 181 mg/dL (70-110)
[2020-11-07] MEDS: HYDROmorphone 1 MG/ML Syringe IV (12:32)
[2020-11-07] MEDS: DAKIN'S SOL HALF STRENGTH (=0.25%) 1 APPLIC TOPICAL (12:34)
--- NOTE | 2020-11-07 13:11 | PCM.CONS.GEN ---
Reason for Consult Date of Consultation: 11/07/20 Reason for Consultation: Necrotic infected sacral pressure sore, Stage IV. REFERRING PHYSICIAN: Dr. Friedman. RESEARCH & INSIGHTS EXECUTIVE: Dr. Aguirre. History of Present Illness: The patient is a 70 y/o F with a history of stroke and diabetes mellitus presents with worsening necrotic infected sacral pressure sore. The pressure sore started in September. There was increasing drainage and odor. In the ED, WBC was 11.1. Lactate was 0.9. She had recent wound culture done on 11/02/20. It showed E. coli, Morganella morganii, Pseudomonas aeroginosa, and Actinomyces odontolyticus. She was placed on Ciprofloxacin and failed outpatient therapy. She was admitted and initially the Cipro was continued IV. Her antibiotics have been changed to Meropenem. She had a CT Pelvis done on 10/18/20. It showed no demonstrated cortical erosion or bony destruction or periosteal reaction to indicate active osteomyelitis of the lower coccygeal vertebra. The overlying soft tissues are mildly thickened/edematous possibly due to cellulitis or pressure wound. No abscess is seen. Large amount of stool throughout the colon. Minor colonic diverticulosis. Because of the odor, wound care was started with Dakin's dressing changes. I was asked to evaluate this patient for surgical options for treatment. Her last HgbA1c from [facility] was 6.9 on 12/23/18. Past Medical History Past Medical History (Chronic Problems): Chronic Problems (Last Updated 11/08/20 @ 11:[address] Riki Aguirre MD) Ulcer of right lower leg (Chronic) Ulcer of right groin with fat layer exposed (Chronic) Wound of right lower extremity (Chronic) Right lower extremity with fat layer exposed Compression fracture (Chronic) Debility (Chronic) COPD (chronic obstructive pulmonary disease) (Chronic) Chronic respiratory failure with hypoxia (Chronic) Osteomyelitis of pelvic region (Chronic) History of stroke (Chronic) History of MRSA infection (Chronic) Hx of tonsillectomy (Chronic) Hx of bladder repair surgery (Chronic) History of partial hysterectomy (Chronic) History of lumpectomy of right breast (Chronic) History of right-sided carotid endarterectomy (Chronic) 2008 Hx TIA/stroke w/o resid (Chronic) Diabetes (Chronic) Neurogenic bladder (Chronic) Neurogenic bladder (Chronic) HTN (hypertension) (Chronic) Chronic ulcer of left heel with fat layer exposed (Chronic) Decubitus ulcer of left heel, stage 4 (Chronic) PAD (peripheral artery disease) (Chronic) Tobacco abuse (Chronic) Medical History: Medical History (Last Updated 11/08/20 @ 11:[address] Riki Aguirre MD) Hx TIA/stroke w/o resid (Chronic) Z86.73 Diabetes (Chronic) E11.9 Neurogenic bladder (Chronic) N31.9 Urinary retention (Acute) R33.9 Neurogenic bladder (Chronic) N31.9 Urge incontinence (Acute) N39.41 Nocturia (Acute) R35.1 Intertrochanteric fracture of left hip (Acute) S72.142A Left humeral fracture (Resolved) S42.302A HTN (hypertension) (Chronic) I10 Chronic ulcer of left heel with fat layer exposed (Chronic) L97.422 Decubitus ulcer of left heel, stage 4 (Chronic) L89.624 PAD (peripheral artery disease) (Chronic) I73.9 Tobacco abuse (Chronic) Z72.0 CAD (coronary artery disease) I25.10 Cervical radiculitis M54.12 Frozen shoulder M75.00 Gout M10.9 History of MRSA infection Z86.14 Neuropathy G62.9 Osteoporosis M81.0 Peripheral vascular disease I73.9 Type II diabetes mellitus E11.9 Vitamin D deficiency E55.9 Chronic neck pain M54.2, G89.29 Allergies amoxicillin [From Augmentin] Allergy (Verified 11/06/20 18:58) Rash atorvastatin [From Lipitor] Allergy (Verified 11/06/20 18:58) Other clavulanic acid [From Augmentin] Allergy (Verified 11/06/20 18:58) Rash gabapentin Allergy (Verified 11/06/20 18:58) Nausea quinapril [From Accupril] Allergy (Verified 11/06/20 18:58) Rash fluoxetine Adverse Reaction (Verified 11/06/20 18:58) Other Home Medications: Ambulatory Orders Medication Instructions Recorded Hydrochlorothiazide [Hctz] 12.5 mg PO DAILY 06/16/18 Losartan Potassium [Cozaar] 100 mg PO DAILY 06/16/18 Rosuvastatin Calcium 5 mg PO QHS 09/08/18 Clopidogrel Bisulfate [Plavix] 75 mg PO DAILY 02/12/19 metFORMIN (XR) [Glucophage Xr] 500 mg PO BID 04/30/20 Hydrocodone/Acetaminophen 7.5 - 325 mg PO BID 08/07/20 [Hydrocodon-Acetaminophen 5-325] Amlodipine [Norvasc] 10 mg PO DAILY 11/06/20 Aspirin [Aspirin, Baby] 81 mg PO DAILY@0800 11/06/20 Ciprofloxacin [Cipro] 500 mg PO BID 11/06/20 Cyclobenzaprine HCl 10 mg PO BID 11/06/20 Docusate Sodium [Colace] 100 mg PO BID 11/06/20 Ipratropium/Albuterol Sulfate 3 ml INHALATION Q4H.RT 11/06/20 [Duoneb] Lansoprazole [Prevacid] 30 mg PO DAILY 11/06/20 Multivitamin with Minerals 1 ea PO DAILY 11/06/20 [Multiple Vitamin] Naproxen [Naprosyn] 500 mg PO BID PRN PRN 11/06/20 Surgical History: Surgical History (Last Reviewed 04/19/20 @ 11:33 by Qian Thrasher) Hx of tonsillectomy (Chronic) Z90.89 Hx of bladder repair surgery (Chronic) Z98.890 History of partial hysterectomy (Chronic) Z90.711 History of lumpectomy of right breast (Chronic) Z98.890 History of right-sided carotid endarterectomy (Chronic) Z98.890 2008 Surgical History: total hip arthroplasty, - - Bladder Surgery x 2, right carotid endarectomy, bladder stimulator, bilateral lower extremity PCI most recently 2018 left iliac and left SFA, left hip surgery following fracture, hysterectomy. Psychiatric History: No pertinent psych hx HOOD MAKER History: No pertinent HOOD MAKER history Lives: Spouse/ Significant Other Smoking Status: Current every day smoker - Patient with ongoing 1 pack/day cigarette tobacco usage since use. Tobacco Use: Cigarettes Alcohol: None Drugs: None - *Family History Paternal Family History: Family History (Last Reviewed 04/19/20 @ 11:33 by Qian Thrasher) Mother Tuberculosis Father Heart disease CVA (cerebral vascular accident) Sister Multiple sclerosis Brother Heart disease History Items: High Cholesterol, Heart Disease, Hypertension, Stroke Maternal Family History: Family History (Last Reviewed 04/19/20 @ 11:33 by Qian Thrasher) Mother Tuberculosis Father Heart disease CVA (cerebral vascular accident) Sister Multiple sclerosis Brother Heart disease History Items: Pulmonary Disease, - - Mother with history of tuberculosis. Review of Systems Comment: Constitutional: Reports: Anorexia, Malaise, Weakness, Fatigue. Denies: Chills, Fever, Weight Change. HEENT: Denies: Head Aches, Sinus Congestion, Sinus Drainage. Cardiovascular: Denies: Chest Pain, Palpitations. Respiratory: Reports: Cough, Wheezing. Denies: Shortness of breath at rest, Sputum production. Gastrointestinal: Denies: Abdominal Pain, Nausea, Vomiting. Genitourinary: Denies: Dysuria. Musculoskeletal: Reports: Back Pain, Joint Pain, Leg Pain, Muscle pain. Denies: Joint Tenderness. Skin: Reports: Skin Changes, Wounds. Denies: Rash. Neurological: Denies: Numbness, Tingling, Focal weakness. Psychiatric: Denies: Anxiety, Depression, Homicidal Ideations, Suicidal Ideations. Hematologic/ Lymphatic: Reports: Easy Bruising, Easy Bleeding Patient Problems: Active and Suspected Problems (Last Updated 11/08/20 @ 11:[address] Riki Aguirre MD) Decubitus ulcer (Acute) - Physical Exam Vitals/I&O's: General: awake, alert, oriented x 3 and cooperative, extremely hard of hearing, laying in the ED bed, uncomfortable appearing. Skin: normal color, turgor, no icterus, cyanosis except significant posterior coccyx wound with periwound erythema, possible undermining, unclear exact depth secondary to necrotic tissue appearance with foul smell and slough. HEENT: EOMI, PERRLA. Lungs: Diminished breath sounds. Heart: Regular rate and rhythm. Abdomen: soft, nondistended. Back: Lower back and sacral area is a necrotic infected pressure sore that extends down to bone. There is necrotic fascia at the base of the pressure sore. Malodorous. Necrotic tissue in the center of the pressure sore and along the edges. Fat necrosis present. Some drainage note. Measures 6 x 6 x 2 cm. Tender to palpation. Stage IV pressure sore. Extremities: no cyanosis or clubbing, noted muscle loss. Neurological: cranial nerves II-XII grossly normal. Psychiatric: affect appears uncomfortable, no acute evidence of depressive or anxiety feelings. Vital Signs Temp Pulse Resp BP Pulse Ox 98.9 F 77 18 155/87 H 95 11/07/20 09:58 11/07/20 09:58 11/07/20 10:01 11/07/20 09:58 11/07/20 09:58 Oxygen Flow Rate (L/min) 3 Oxygen Delivery Method Room Air Weight: 136 lb 2 oz Body Mass Index (BMI) 22.6 Finger Stick Blood Glucose 156 Intake and Output for Last 24 Hours 11/05/20 11/06/20 11/07/20 23:59 23:59 23:59 Intake Total 200 / 200 2286.67 / 2286.67 Output Total 700 / 700 Balance 200 / 200 1586.67 / 1586.67 Microbiology Past 72 Hours 11/06/20 20:18 Ulcer, Decubitus - Buttock Gram Stain - Final Laboratory Results 11/06/20 19:40: WBC 11.1 H, RBC 4.56, Hgb 14.0, Hct 41.8, MCV 91.7, MCH 30.7, MCHC 33.5, RDW Std Deviation 46.5 H, RDW Coeff of Mirza 13.8, Plt Count 502 H, MPV 8.9, Immature Gran % (Auto) 0.300, Neut % (Auto) 83.0 H, Lymph % (Auto) 8.4 L, Dodge % (Auto) 7.5, Eos % (Auto) 0.3, Baso % (Auto) 0.5, Absolute Neuts (auto) 9.2 H, Absolute Lymphs (auto) 0.93, Nucleated RBC % 0 11/06/20 19:40: Sodium 132 L, Potassium 3.5, Chloride 94 L, Carbon Dioxide 31.0, Anion Gap 7, BUN 9, Creatinine 0.37 L, Estim Creat Clear Calc 46.43, Est GFR (MDRD) Af Amer 222, Est GFR (MDRD) Non-Af 183, BUN/Creatinine Ratio 24.4 H, Glucose 103, Calcium 9.4, Total Bilirubin 0.30, Direct Bilirubin 0.10, AST 5 L, ALT 8 L, Alkaline Phosphatase 98, Total Protein 6.9, Albumin 2.8 L, Globulin 4.1 11/06/20 19:40: Lactic Acid Cancelled 11/06/20 19:40: Magnesium 1.7 11/06/20 21:22: Lactic Acid 0.9 11/07/20 01:40: S.aureus Protein A PCR NEGATIVE, MRSA (PCR) Negative 11/07/20 05:15: WBC 9.5, RBC 4.05 L, Hgb 12.7, Hct 37.9, MCV 93.6, MCH 31.4, MCHC 33.5, RDW Std Deviation 47.1 H, RDW Coeff of Mirza 13.8, Plt Count 435, MPV 9.2, Immature Gran % (Auto) 0.500, Neut % (Auto) 78.4 H, Lymph % (Auto) 12.5 L, Dodge % (Auto) 7.7, Eos % (Auto) 0.6, Baso % (Auto) 0.3, Absolute Neuts (auto) 7.5, Absolute Lymphs (auto) 1.19, Nucleated RBC % 0 11/07/20 05:15: Sodium 132 L, Potassium 3.3 L, Chloride 96 L, Carbon Dioxide 30.0, Anion Gap 6, BUN 8, Creatinine 0.28 L, Estim Creat Clear Calc 46.43, Est GFR (MDRD) Af Amer 308, Est GFR (MDRD) Non-Af 254, BUN/Creatinine Ratio 28.8 H, Glucose 135 H, Calcium 8.9, Total Bilirubin 0.30, AST 8 L, ALT 8 L, Alkaline Phosphatase 86, Total Protein 6.1 L, Albumin 2.4 L, Globulin 3.7, Albumin/Globulin Ratio 0.6 L 11/07/20 06:33: POC Glucose 135 H 11/07/20 11:59: POC Glucose [address]/Pelvis WITH IV Contrast IMPRESSION: 1. No demonstrated cortical erosion or bony destruction or periosteal reaction to indicate active osteomyelitis of the lower coccygeal vertebra. The overlying soft tissues are mildly thickened/edematous possibly due to cellulitis or pressure wound. No abscess is seen. 2. Large amount of stool throughout the colon 3. Minor colonic diverticulosis Electronically Signed: Madhu Orellana MD at 19:50 EST , Service support , Current Medications Acetaminophen (Acetaminophen 325 Mg Tablet) 650 mg PO Q6H PRN PRN PRN Reason: Pain Score 1-10/Temp > 100.7 F Al Hydroxide/Mg Hydroxide (Mag Hydrox/Al Hydrox/Simeth 30 Ml Udc) 30 ml PO Q6H PRN PRN PRN Reason: Gastric Burning Albuterol Sulfate (Albuterol 2.5 Mg/3 Ml Vial.Neb.) 2.5 mg INHALATION Q2H PRN PRN PRN Reason: Dyspnea, wheezing Albuterol/Ipratropium (Ipratropium/Albuterol Sulfate 3 Ml Ampul.Neb) 3 ml INHALATION Q4H.RT HUANG Amlodipine Besylate (Amlodipine 10 Mg Tablet) 10 mg PO DAILY REPLACED BY [facility] Last Admin: 11/07/20 10:57 Dose: 10 mg Documented by: Aspirin (Aspirin 81 Mg Tab.Chew) 81 mg PO DAILY@0800 REPLACED BY [facility] Last Admin: 11/07/20 08:21 Dose: 81 mg Documented by: Clopidogrel Bisulfate (Clopidogrel Bisulfate 75 Mg Tablet) 75 mg PO DAILY REPLACED BY [facility] Last Admin: 11/07/20 10:56 Dose: 75 mg Documented by: Cyclobenzaprine HCl (Cyclobenzaprine Hcl 10 Mg Tablet) 10 mg PO BID REPLACED BY [facility] Last Admin: 11/07/20 10:56 Dose: 10 mg Documented by: Docusate Sodium (Docusate Sodium 100 Mg Capsule) 100 mg PO BID REPLACED BY [facility] Last Admin: 11/07/20 10:57 Dose: 100 mg Documented by: Enoxaparin Sodium (Enoxaparin 40 Mg/0.4 Ml Syringe) 40 mg SC DAILY REPLACED BY [facility] Last Admin: 11/07/20 11:04 Dose: Not Given Documented by: Guaifenesin (Guaifenesin 10 Ml Udc (200mg/10ml)) 20 ml PO Q4H PRN PRN PRN Reason: COUGH Hydralazine HCl (Hydralazine 20 Mg/Ml Vial) 10 mg IV Q4H PRN PRN PRN Reason: SBP > 160 Hydrochlorothiazide (Hydrochlorothiazide 12.5mg) 12.5 mg PO DAILY REPLACED BY [facility] Last Admin: 11/07/20 10:57 Dose: 12.5 mg Documented by: Sodium Chloride () 1,000 mls @ 100 mls/hr IV .Q10H REPLACED BY [facility] Last Admin: 11/07/20 12:32 Dose: 100 mls/hr Documented by: Ciprofloxacin (Cipro) 400 mg in 200 mls @ 200 mls/hr IV Q12 REPLACED BY [facility] Last Infusion: 11/07/20 12:00 Dose: Infused Documented by: Insulin Human Lispro (Insulin Lispro 100 Unit/Ml Insuln.Pen) 0 unit SC ACHS REPLACED BY [facility]; Protocol Last Admin: 11/07/20 12:07 Dose: Not Given Documented by: Lorazepam (Lorazepam 2 Mg/Ml Syringe) 0.5 mg IV Q6H PRN PRN PRN Reason: severe muscle cramps Losartan Potassium (Losartan Potassium 100 Mg Tablet) 100 mg PO DAILY REPLACED BY [facility] Last Admin: 11/07/20 10:57 Dose: 100 mg Documented by: Magnesium Hydroxide (Magnesium Hydroxide 30 Ml Udc) 30 ml PO DAILY PRN PRN PRN Reason: Constipation Melatonin (Melatonin 3 Mg Tablet) 3 mg PO QHS PRN PRN PRN Reason: INSOMNIA Morphine Sulfate (Morphine 2 Mg/Ml Syringe) 2 mg IV Q3H PRN PRN PRN Reason: Pain Score 6-10 Last Admin: 11/07/20 08:07 Dose: 2 mg Documented by: Nicotine (Nicotine 21 Mg Patch) 21 mg TD DAILY REPLACED BY [facility] Last Admin: 11/07/20 10:58 Dose: Not Given Documented by: Nutritional Formula (Lactose Free) (Glucerna Shake 120 Ml Liquid) 120 ml PO TIDCM REPLACED BY [facility] Last Admin: 11/07/20 12:07 Dose: Not Given Documented by: Ondansetron HCl (Ondansetron 4 Mg/2 Ml Vial) 4 mg IV Q8H PRN PRN PRN Reason: NAUSEA/VOMITING Oxycodone HCl (Oxycodone 5 Mg Tablet) 5 mg PO Q4H PRN PRN PRN Reason: Pain Score 4-5 Last Admin: 11/07/20 01:34 Dose: 5 mg Documented by: Pantoprazole Sodium (Pantoprazole Sodium 40 Mg Tablet) 40 mg PO DAILY REPLACED BY [facility] Last Admin: 11/07/20 10:56 Dose: 40 mg Documented by: Prochlorperazine Edisylate (Prochlorperazine 10 Mg/2 Ml Vial) 5 mg IV Q4H PRN PRN PRN Reason: Breakthrough nausea/vomiting Psyllium Hydrophilic Mucilloid (Psyllium 1 Packet) 1 packet PO DAILY PRN PRN PRN Reason: Constipation Rosuvastatin Calcium (Rosuvastatin Calcium 5 Mg Tablet) 5 mg PO QHS REPLACED BY [facility] Sodium Chloride (0.9% Saline Lock 10 Ml Syringe) 10 - 40 ml IV UD PRN PRN Reason: SALINE FLUSH Last Admin: 11/07/20 01:34 Dose: 10 ml Documented by: Sodium Hypochlorite (Dakin's Bette Half Strength (=0.25%)) 1 applic TOPICAL DAILY HUANG; Protocol Last Admin: 11/07/20 12:34 Dose: 1 applicatio Documented by: Throat Lozenges (Benzocaine/Menthol 1 Lozenge) 1 lozenge MUCOUS MEM Q2H PRN PRN PRN Reason: SORE THROAT Assessment/Plan All Active Problems (Last Updated 11/08/20 @ 11:[address] Riki Aguirre MD) Ischemia of right lower extremity (Acute) Injury of right common femoral artery (Acute) Postoperative wound dehiscence (Acute) COPD exacerbation (Acute) acute delerium (Acute) Decubitus ulcer (Acute) Pressure ulcer of sacral region, stage 4 (Acute) Skin necrosis (Acute) Urinary retention (Acute) Urge incontinence (Acute) Nocturia (Acute) Intertrochanteric fracture of left hip (Acute) Left humeral fracture (Resolved) 1. Necrotic infected sacral pressure sore, Stage IV. 2. Clinical osteomyelitis. 3. Diabetes mellitus. 4. History of stroke with decreased ambulation. 5. Smoker. 6. History of MRSA. DEBRIDEMENT NOTE Without using anesthesia because of the presence of necrotic tissue, I used pickups and scissors and sharply excised and debrided the necrotic infected sacral pressure sore down through necrotic muscle and necrotic fascia at the base of the pressure sore. The necrotic tissue was sent to Microbiology for culture. Some bleeding seen at the edges that was easily controlled with gauze compression. Dakin's dressing changes were started. I excised and debrided the central necrotic tissue at the bedside to unroof the area to make the wound care easier with the Dakin's. A more formal excision of the pressure sore including a partial ostectomy for osteomyelitis will be performed tomorrow in the operating room. The dimensions of the necrotic pressure sore increased after excisional debridement to 6.1 x 6.1 x 2 cm. Continue Meropenem. Recent wound culture from 11/02/20 showed E. coli, Morganella morganii, Pseudomonas aeroginosa, and Actinomyces odontolyticus. Continue Dakin's dressing changes twice a day. She needs a specialty bed such as a low air loss mattress. Patient has diabetes mellitus and has a polymicrobial infection. Recommend formal operative excision of this Stage IV necrotic infected pressure sore down to the bone and include a partial ostectomy for osteomyelitis. Half the soft tissue and half the bone will be sent to Pathology for analysis to rule out carcinoma and to evaluate for osteomyelitis. Half the soft tissue and half the bone will be sent to Microbiology for culture. A positive culture will necessitate antibiotic therapy. I anticipate the need for IV antibiotics and the placement of a PICC line. Depending on the proximity of the pressure sore to the anal opening or if there is stool contamination, then she will need to be evaluated by General Surgery for a diverting colostomy. Anticipate increased metabolic demands from the pressure sore and the infection. Will check a Prealbumin and encourage nutritional supplementation with protein to help the healing process. Discussed with the regarding the complexity of her situation. It would be safer for her to be evaluated for an ECF at discharge until the pressure sore and the infection have stabilized before sending her back home. He was in agreement. After discharge from the ECF, she can [facility]up [facility]. Will check a HgbA1c. Later on after the excision of this pressure sore, if there is a discussion about wound closure with myocutaneous flaps, her HgbA1c for elective surgery needs to be less than 8. Patient was informed of the risks and complications of the procedure including alternatives to surgery. These were discussed with the patient personally. Patient voices understanding and wishes to proceed. Encouraged patient to stop smoking as it may have deleterious effects on wound healing. We discussed the current risks associated with COVID-19. While it is understood that there is a community spread of COVID-19, the risk of corey COVID-19 while at [facility] ([facility]) is very low; however, the risk cannot be completely mitigated because of the community spread of the disease. We discussed in detail the risk of exposure to and/or potential harm posed by the COVID-19 virus with having a surgery/procedure at this time versus the risk of delaying the surgery/procedure. It is not possible to know either the risk of delaying the surgery or procedure or chance of getting an infection with perfect accuracy, but a joint decision was made to proceed at this time with the scheduled surgery/procedure as indicated on the consent form. Patient was notified that we will need to comply with any screening or testing [facility] wishes to perform or that surgery may be delayed for any positive results. Discussed with the patient that I was tested for COVID-19 on 03/15/20 which was negative and on 03/29/20 which was negative and on 04/12/20 which was negative and on 04/26/20 which was negative and on 05/10/20 which was negative and on 05/31/20 which was negative and on 06/21/20 which was negative and on 07/26/20 which was negative and on 08/16/20 which was negative and on 09/04/20 which was negative. My testing regimen at this time is to be COVID-19 tested every 2 weeks or so. I received the COVID-19 vaccine (Moderna) on 09/12/20 and the second dose was received on 10/10/20. Procedure Criteria Procedure Type: Elective COVID Risk Discussion: The surgeon/proceduralist and patient have discussed in detail the risk of exposure to and/or potential harm posed by the COVID-19 virus with having a surgery/procedure at this time versus the risk of delaying the surgery/procedure. It is not possible to know either the risk of delaying the surgery or procedure or chance of getting an infection with perfect accuracy, but a joint decision was made between the patient and the surgeon/proceduralist to proceed at this time with the scheduled surgery/procedure as indicated on the consent form. Inpatient E&M: 62481 Init Hosp L2 - ICD-10 - L89.154, I96, M86.9, E11.9, Z86.73, Z86.14, F17.200
--- NOTE | 2020-11-07 13:20 | CASEMGMT ---
RN NIMA Face to Face with patient for initial transition planning/care coordination assessment. RN CM introduced self and role at [facility]. Patient lying in bed, sleeping, at bedside. willing to participate in assessment and is able to answer all questions appropriately. Care providers, pharmacy, and demographics verified. wishes for patient to discharge to SNF at discharge and prefers TCU. RN NIMA explained that it would depend on insurance and beds available. voiced understanding. states he has no further needs or concerns at this time. CHRISSY Newman updated regarding SNF referral request. CM to follow for discharge planning needs that may arise. PCP: Brandon Specialists: none Preferred Pharmacy: [facility] Insurance: [place], [place] Prescription Benefit: yes Living Will/HPOA: yes, daughter Chloé Jaramillo LNOK: , daughter Living Arrangements: Patient lives with in a single story apartment, no steps to enter. Patient depends on , daughter, and aides to preform care. Transportation: /daughter DME/HHC: Patient has hospital bed, wheelchair, walker, tub bench, nebulizer, and oxygen as needed through [facility]. Patient is active with [facility] and has previously been to [facility] and [facility] in the past Disposition Plan: SNF pending acceptance and precert. Jennifer GREGORIO, RN, CM
--- NOTE | 2020-11-07 13:39 | PCM.HP.ID ---
Problem List (1) Decubitus ulcer Status: Acute Qualifiers: Pressure injury location: buttock Pressure injury stage: unstageable Laterality: unspecified laterality Qualified Code(s): L89.300 - Pressure ulcer of unspecified buttock, unstageable Reason for Consult: osteo Consulted by: Dr. Friedman History of Present Illness: The patient is a 70 year old F with h/o stroke, neurogenic bladder, DM, COPD, presented yesterday with worsening of sacral wound. Has been having progressive wound since September. Wcx cx 11/02 with polymicrobial growth, and she had just been started on po cipro prior to admit. Continued on cipro, plastic surgery and ID consulted. Pt feeling ok, plan on surgical debridement tomorrow. Full ROS limited by pt very hard of hearing. - Medical History Past Medical History (Chronic Problems): Chronic Problems (Last Reviewed 04/19/20 @ 11:33 by Qian Thrasher) COPD (chronic obstructive pulmonary disease) (Chronic) Chronic respiratory failure with hypoxia (Chronic) Ulcer of right lower leg (Chronic) Ulcer of right groin with fat layer exposed (Chronic) Wound of right lower extremity (Chronic) Right lower extremity with fat layer exposed Compression fracture (Chronic) Debility (Chronic) Hx of tonsillectomy (Chronic) Hx of bladder repair surgery (Chronic) History of partial hysterectomy (Chronic) History of lumpectomy of right breast (Chronic) History of right-sided carotid endarterectomy (Chronic) 2009 Hx TIA/stroke w/o resid (Chronic) Diabetes (Chronic) Neurogenic bladder (Chronic) Neurogenic bladder (Chronic) HTN (hypertension) (Chronic) Chronic ulcer of left heel with fat layer exposed (Chronic) Decubitus ulcer of left heel, stage 4 (Chronic) PAD (peripheral artery disease) (Chronic) Tobacco abuse (Chronic) Allergies/Adverse Reactions: Allergies amoxicillin [From Augmentin] Allergy (Verified 11/06/20 18:58) Rash atorvastatin [From Lipitor] Allergy (Verified 11/06/20 18:58) Other clavulanic acid [From Augmentin] Allergy (Verified 11/06/20 18:58) Rash gabapentin Allergy (Verified 11/06/20 18:58) Nausea quinapril [From Accupril] Allergy (Verified 11/06/20 18:58) Rash fluoxetine Adverse Reaction (Verified 11/06/20 18:58) Other Home Medications: Ambulatory Orders Medication Instructions Recorded Hydrochlorothiazide [Hctz] 12.5 mg PO DAILY 06/16/18 Losartan Potassium [Cozaar] 100 mg PO DAILY 06/16/18 Rosuvastatin Calcium 5 mg PO QHS 09/08/18 Clopidogrel Bisulfate [Plavix] 75 mg PO DAILY 02/12/19 metFORMIN (XR) [Glucophage Xr] 500 mg PO BID 04/30/20 Hydrocodone/Acetaminophen 7.5 - 325 mg PO BID 08/07/20 [Hydrocodon-Acetaminophen 5-325] Amlodipine [Norvasc] 10 mg PO DAILY 11/06/20 Aspirin [Aspirin, Baby] 81 mg PO DAILY@0800 11/06/20 Ciprofloxacin [Cipro] 500 mg PO BID 11/06/20 Cyclobenzaprine HCl 10 mg PO BID 11/06/20 Docusate Sodium [Colace] 100 mg PO BID 11/06/20 Ipratropium/Albuterol Sulfate 3 ml INHALATION Q4H.RT 11/06/20 [Duoneb] Lansoprazole [Prevacid] 30 mg PO DAILY 11/06/20 Multivitamin with Minerals 1 ea PO DAILY 11/06/20 [Multiple Vitamin] Naproxen [Naprosyn] 500 mg PO BID PRN PRN 11/06/20 - Social History Tobacco Use: cigarettes Vital Signs Temp Pulse Resp BP Pulse Ox 98.9 F 77 18 155/87 H 95 11/07/20 09:58 11/07/20 09:58 11/07/20 10:01 11/07/20 09:58 11/07/20 09:58 Oxygen Flow Rate (L/min) 3 Oxygen Delivery Method Room Air Weight: 61.745 kg Body Mass Index (BMI) 22.6 Finger Stick Blood Glucose 156 Microbiology Past 72 Hours 11/06/20 20:18 Gram Stain - Final Ulcer, Decubitus - Buttock Wound Culture - Preliminary Mixed Culture Laboratory Tests Past 24 Hrs 11/06/20 11/06/20 11/06/20 19:40 19:40 19:40 WBC 11.1 H RBC 4.56 Hgb 14.0 Hct 41.8 MCV 91.7 MCH 30.7 MCHC 33.5 RDW Std Deviation 46.5 H RDW Coeff of Mirza 13.8 Plt Count 502 H MPV 8.9 Immature Gran % (Auto) 0.300 Neut % (Auto) 83.0 H Lymph % (Auto) 8.4 L [place] % (Auto) 7.5 Eos % (Auto) 0.3 Baso % (Auto) 0.5 Absolute Neuts (auto) 9.2 H Absolute Lymphs (auto) 0.93 Nucleated RBC % 0 Sodium 132 L Potassium 3.5 Chloride 94 L Carbon Dioxide 31.0 Anion Gap 7 BUN 9 Creatinine 0.37 L Estim Creat Clear Calc 46.43 Est GFR (MDRD) Af Amer 222 Est GFR (MDRD) Non-Af 183 BUN/Creatinine Ratio 24.4 H Glucose 103 Lactic Acid Cancelled Calcium 9.4 Magnesium Total Bilirubin 0.30 Direct Bilirubin 0.10 AST 5 L ALT 8 L Alkaline Phosphatase 98 Total Protein 6.9 Albumin 2.8 L Globulin 4.1 Albumin/Globulin Ratio S.aureus Protein A PCR MRSA (PCR) 11/06/20 11/06/20 11/07/20 19:40 21:22 01:40 WBC RBC Hgb Hct MCV MCH MCHC RDW Std Deviation RDW Coeff of Mirza Plt Count MPV Immature Gran % (Auto) Neut % (Auto) Lymph % (Auto) [place] % (Auto) Eos % (Auto) Baso % (Auto) Absolute Neuts (auto) Absolute Lymphs (auto) Nucleated RBC % Sodium Potassium Chloride Carbon Dioxide Anion Gap BUN Creatinine Estim Creat Clear Calc Est GFR (MDRD) Af Amer Est GFR (MDRD) Non-Af BUN/Creatinine Ratio Glucose Lactic Acid 0.9 Calcium Magnesium 1.7 Total Bilirubin Direct Bilirubin AST ALT Alkaline Phosphatase Total Protein Albumin Globulin Albumin/Globulin Ratio S.aureus Protein A PCR NEGATIVE MRSA (PCR) Negative 11/07/20 11/07/20 05:15 05:15 WBC 9.5 RBC 4.05 L Hgb 12.7 Hct 37.9 MCV 93.6 MCH 31.4 MCHC 33.5 RDW Std Deviation 47.1 H RDW Coeff of Mirza 13.8 Plt Count 435 MPV 9.2 Immature Gran % (Auto) 0.500 Neut % (Auto) 78.4 H Lymph % (Auto) 12.5 L [place] % (Auto) 7.7 Eos % (Auto) 0.6 Baso % (Auto) 0.3 Absolute Neuts (auto) 7.5 Absolute Lymphs (auto) 1.19 Nucleated RBC % 0 Sodium 132 L Potassium 3.3 L Chloride 96 L Carbon Dioxide 30.0 Anion Gap 6 BUN 8 Creatinine 0.28 L Estim Creat Clear Calc 46.43 Est GFR (MDRD) Af Amer 308 Est GFR (MDRD) Non-Af 254 BUN/Creatinine Ratio 28.8 H Glucose 135 H Lactic Acid Calcium 8.9 Magnesium Total Bilirubin 0.30 Direct Bilirubin AST 8 L ALT 8 L Alkaline Phosphatase 86 Total Protein 6.1 L Albumin 2.4 L Globulin 3.7 Albumin/Globulin Ratio 0.6 L S.aureus Protein A PCR MRSA (PCR) - Other Studies Radiology: [] reviewed Other Studies: [] Route of nutrition/ use of supplements: [] Nutritional Intake: [] IV Site: [] Huston Catheter: [] - Physical Exam General: Cooperative HEENT: Atraumatic, PERRLA, EOMI Neck: Supple, No Nodes Lungs: Clear to auscultation, Normal air movement Cardiovascular: Regular rate, Regular Rhythm Abdomen: Soft, Non Tender, Non-Distended Extremities: No edema Skin: Ulcer/ Wound - sacrum exposed IV Site: Peripheral, without redness Musculoskeletal: No Tenderness to Palpation of Joints or Extremities Neurological: Cranial nerves II-XII grossly intact - Assessment/Plan Antibiotics: [] Assessment/Plan: [] Active and Suspected Problems (Last Reviewed 04/19/20 @ 11:33 by Qian Thrasher) Decubitus ulcer (Acute) sacral osteo - OR planned tomorrow with Dr. Aguirre. Wound cx 11/02/20 with ecoli, morganella, pseudomonas, and actinomyces. Will change cipro to meropenem so that we can cover all those organisms. Will follow, thank you, d/w Dr. Aguirre
--- NOTE | 2020-11-07 14:02 | CASEMGMT ---
Social Work Note SW received consult for SNF placement and pt's Manjeet first preference for SNF is [facility]. SW reviewed pt's insurance. Pt has [place] [employer], TCU is NOT in network. Pt also has Medicaid secondary which TCU is NOT in network with either. SW in to speak with pt and pt's Manjeet present in room. SW introduced self and role at [facility]. Pt soundly sleeping, didn't wake up when this worker entered the room. Patient was provided a list of SNF providers including quality and resource use data and consistent with the patient?s preferred geographic region, medical needs, and insurance network. Manjeet states to call daughter Chloé. CHRISSY placed a call to pt's daughter Chloé. CHRISSY introduced self and role at [facility]. CHRISSY informed Chloé that TCU doesn't take either one of pt's insurances ([employer] [place] [employer] and [place] Medicaid). CHRISSY verbally went over list of SNF that do accept pt's insurance. Chloé states preference is for pt to stay in [place] area. Chloé states she would like to visit facilities today and tomorrow and then will call this worker tomorrow with SNF choices. Chloé states pt will NOT be returning to [facility]. Chloé states pt was left to rot at [facility]. Chloé states she reported concerns to the [facility] and the State. Chloé to call this worker tomorrow with SNF choices. Plan: SNF pending acceptance and pre-cert Jennifer Newman VIDEO GAME TESTER, SENIOR PORTFOLIO MANAGER
--- NOTE | 2020-11-07 15:13 | NT.THERAPY_ITS ---
Nutrition Therapy Report - History Nutrition Services has been consulted to:: Manage nutrient details of diet order Current diet / nutrition support order:: 1800 calorie; consistent carbohydrate diet--nonselect. 120ml glucerna shake TID w/ medpass - Anthropometric Measurements Height:: 5 ft 5 in Weight:: 61.7 kg Body Mass Index (BMI):: 22.6 - Relevant Labs Relevant Labs:: WBC 11.1 K/mm3 (4.4-11.0) H 11/06/20 19:40 RBC 4.05 M/mm3 (4.2-5.4) L 11/07/20 05:15 RDW Std Deviation 47.1 fl (35.1-43.9) H 11/07/20 05:15 Plt Count 502 K/mm3 (150-450) H 11/06/20 19:40 Neut % (Auto) 78.4 % (47-70) H 11/07/20 05:15 Lymph % (Auto) 12.5 % (19-41) L 11/07/20 05:15 Absolute Neuts (auto) 9.2 X10^3/uL (2.0-7.7) H 11/06/20 19:40 Sodium 132 mmol/L (136-145) L 11/07/20 05:15 Potassium 3.3 mmol/L (3.5-5.1) L 11/07/20 05:15 Chloride 96 mmol/L (98-107) L 11/07/20 05:15 Creatinine 0.28 mg/dL (0.55-1.02) L 11/07/20 05:15 BUN/Creatinine Ratio 28.8 RATIO (10-20) H 11/07/20 05:15 Glucose 135 mg/dL (74-106) H 11/07/20 05:15 AST 8 U/L (15-37) L 11/07/20 05:15 ALT 8 U/L (13-56) L 11/07/20 05:15 Total Protein 6.1 g/dL (6.4-8.2) L 11/07/20 05:15 Albumin 2.4 g/dL (3.2-5.0) L 11/07/20 05:15 Albumin/Globulin Ratio 0.6 RATIO (0.9-2.4) L 11/07/20 05:15 - Assessment Food / Nutrition-Related History:: Pt is extremely picky eater as per and todays meal trays barely touched, less than 25% consumed and refusing glucerna shake as well. Pt reports UBW~165 lbs and confirmed as per EMR review; calculated~18% wt loss x past 12-14 months. PO/ami poor and meeting less than 50% estimated nutrition needs x past 1year. Unable to complete NFPA due to pt's wound status. Pt with L heel and sacral pressure injuries requiring Romie but, suspect pt will likely refuse. Pt with ongoing poor and inadequate intake at meals, less than 25% consumed since admit in addition to refusal of glucerna shake w/medpass. Blood glucose fluctuating. Will liberalize diet to help o ptimize nutrition and oral intake. Pt denies difficulty chewing/swallowing but, continues with poor intake/appetite. - Nutrition Diagnosis Problem / Etiology / Signs & Symptoms (PES):: Severe pro/margarita malnutrition in the context of chronic disease related to infected decubitus pressure injuries and ongoing poor appetite as evidenced by 18% wt loss x past 12-14 months, meeting less than 50% estimated nutrition needs x past 6-12 months and continued poor oral intake/refusal of ONS. Evidence of Malnutrition Exists:: Yes Severe PCM:: Chronic Illness - Nutrition Intervention Nutrition Prescription:: Estimated nutrition needs for repletion~3833-8040 kcal (30 kcal/Kg) and ~90-100 gm protein (1.5 gm pro/day) per day. Estimated fluid needs~4976-3926 ml/day (30ml/Kg). - Food / Nutrient Delivery Interventions Summary of nutrition intervention:: Will liberalize diet in an effort to optimize nutrition/PO. Will d/c glucerna shake w/ medpass--pt refusing. Will add Romie BID for wound healing if pt accepting. May need to consider TF support if PO remains poor/inadequate to prevent further energy/pro depletion. Nutrition education provided?: No - MNT Monitoring Further MNT monitoring and evaluation required?: Yes MNT Follow-up in:: 3-5 days
[2020-11-07 17:00] LABS: Bedside Glucose 96 mg/dL (70-110)
[2020-11-07] MEDS: Dextrose 5%/0.9% NaCl 1,000 ML 75 ML IV (17:52)
[2020-11-07] MEDS: Rosuvastatin Calcium 5 MG Tablet PO (21:06)
[2020-11-07 21:56] LABS: Bedside Glucose 129 mg/dL (70-110)
[2020-11-08] VITALS (18 sets, daily range): BP systolic 91–131; BP diastolic 47–96; PULSE 67–99; RESP 12–18; TEMP 36.4–36.9; O2SAT 93–100; BMI 22.5; BMI 22.7
[2020-11-08 05:19] LABS: Absolute Lymphocyte Count 1.12 X10^3/uL (0.83-4.51); Absolute Neutrophil Count 6.6 X10^3/uL (2.0-7.7); Basophil# 0.04 X10^3/uL; Basophil% 0.5 % (0-1); Eosinophil# 0.12 X10^3/uL; Eosinophils% 1.4 % (0-5); Hematocrit 36.9 % (37-47); Hemoglobin 12.2 g/dL (12.0-15.0); Lymphocyte # 1.12 X10^3/ul (4.0); Lymphocyte % 12.9 % (19-41); Mean Corp Hgb Conc 33.1 g/dL (32-36); Mean Corpuscular Hgb 30.6 pg (27.0-32.0); Mean Corpuscular Volume 92.5 fL (81-99); Mean Platelet Vol. 8.8 fl (6.2-12.0); Monocyte# 0.75 X10^3/uL; Monocyte% 8.7 % (0-10); NRBC Flagged by Analyzer 0 % (0-5); Neutrophil % 76.3 % (47-70); Platelet Count 399 K/mm3 (150-450); RBC Distribution Width CV 13.5 % (11.6-14.6); RBC Distribution Width SD 46.3 fl (35.1-43.9); Red Blood Count 3.99 M/mm3 (4.2-5.4); White Blood Count 8.7 K/mm3 (4.4-11.0)
[2020-11-08] MEDS: Dextrose 5%/0.9% NaCl 1,000 ML 75 ML IV ×2 (05:33→14:38)
[2020-11-08] MEDS: Morphine 2 MG/ML Syringe IV ×2 (05:39→14:28)
[2020-11-08 05:40] LABS: Anion Gap 4 (5-15); BUN 5 mg/dL (7-18); BUN/Creat Ratio 22.5 RATIO (10-20); Calcium,Total 8.8 mg/dL (8.5-10.1); Chloride 99 mmol/L (98-107); Creatinine, Serum 0.22 mg/dL (0.55-1.02); EST Glomerular Filtration Rate 329 mL/min (>60); Est Glom Filt Rate - Afr Amer 399 mL/min (>60); Estimated Creatinine Clearance 46.43 ml/min; Glucose 140 mg/dL (74-106); Potassium 3.6 mmol/L (3.5-5.1); Sodium Level 134 mmol/L (136-145)
[2020-11-08 06:55] LABS: Bedside Glucose 134 mg/dL (70-110)
[2020-11-08 07:48] LABS: Hemoglobin A1c 5.4 % (3.8-5.6)
--- NOTE | 2020-11-08 08:34 | NURSING ---
Pt taken down to OR at this time for surgical debridement of the infected sacral wound per Dr Aguirre.
--- NOTE | 2020-11-08 08:35 | NURSING ---
limited ability to obtain physical assessment due to pt noncompliant of care. pt transferring down to surgery.
--- NOTE | 2020-11-08 08:41 | NURSING ---
Updated Chloé that patient is down to Ac at this time. Chloé states she will be there in about 20 minutes.
[2020-11-08] MEDS: Ipratropium/Albuterol Sulfate 3 ML AMPUL.NEB INHALATION ×2 (09:24→11:55)
--- NOTE | 2020-11-08 10:25 | SOF_PTH ---
PATIENT: TATIANA DICKEY LOC: [facility] U#:[id number] AGE/SX: 70/F ROOM: [facility] RE11/06/[address]: Dr. Kingston Leon MD : 1950 BED: 1 DIS: 11/13/2020 SPEC #: [id number] RECD: 11/08/20 11:49 STATUS: JOÃO REQ #: [id number] TIANNA: 11/08/20 10:[address]: Riki Aguirre DEPT: SURGICAL PATHOLOGY RECD BY: Mary Vuong ENTERED: 11/08/20 12:33 SP TYPE: SOFT TISS OTHR DR: MD Dr. Cabrera Juárez III, MD Dr. James A Slaby, MD Dr. Nana Yaa Koram, MD Dr. Robert Leininger, MD Tissues: A - Soft tissues, NOS B - Sacrum, NOS Procedures: Decalcification bone/plaque Special Stain Group I Surgery Specimen Level III AFB Stain (control) GMS Stain (control) Comments: @ Ordering doctor for DEC edited from to @ by CHELSEA at 11/08/20 132 @ Ordering doctor for SUIV edited from to @ by CHELSEA at 11/08/20 1328 @ Submitting doctor edited from to DR.[email or web address] Ibarra by CHELSEA at 11/08/208 HEADER OPERATION: Excision necrotic pressure sore, sacral and ostectomy PRE-OP DIAGNOSIS: Necrotic infected sacral pressure sore stage IV; osteomyelitis TISSUE SUBMITTED: A - Necrotic infected sacral pressure sore stage IV soft tissue, B - Necrotic infected sacral pressure sore stage IV bone MICROSCOPIC DIAGNOSIS A. Necrotic infected sacral pressure sore stage IV soft tissue: Pieces of skin with ulceration, acute inflammation, granulation tissue reaction and abscess formation. See comment. B. Necrotic infected sacral pressure sore stage IV bone: Pieces of bone with acute osteomyelitis. CLAIRE:maame 11/14/2020 COMMENT A. Special stains for acid fast bacilli and fungi are negative for organisms; matched controls are appropriate. MICROSCOPIC DESCRIPTION Slides are reviewed. GROSS DESCRIPTION A - Received in fixative is one container labeled with the patient's name and designated necrotic infected sacral pressure sore stage IV soft tissue. The specimen consists of a ring-shaped piece of mensah-white skin with underlying tissue measuring 7 x 6.5 cm and up to 1.5 cm in thickness. A central defect measures 4 x 4 cm with a superficial area of ulceration. Also present in the container is a triangular piece of skin with underlying tissue measuring 5.5 x 2 cm and up to 2 cm in thickness. Also present in the container is soft tissue measuring 1.5 x 0.7 x 0.5 cm. Lump Inspector sections are submitted in three cassettes. B - Received in fixative is one container labeled with the patient's name and designated necrotic infected sacral pressure sore stage IV bone. The specimen consists of multiple pieces of bone that in aggregate measure 3 x 2.5 x 0.4 cm. The specimen is totally submitted in one cassette after decalcification. / CLAIRE:maame 11/08/20 TC:2 CPT: 80941 x2, 23632, 47195 x2
[2020-11-08] MEDS: Lidocaine 1% /Epi 1:100 (20ml) 20 ML Vial (10:30)
--- NOTE | 2020-11-08 11:06 | OP.PCM_ITS ---
Report of Operation Date of Procedure: 11/08/20 Pre-Operative Diagnosis: 1. Necrotic infected sacral pressure sore, Stage IV. 2. Clinical osteomyelitis. 3. Diabetes mellitus. 4. History of stroke with decreased ambulation. 5. Smoker. 6. History of MRSA. Post-Operative Diagnosis: Same. Surgery/Procedure Performed:: Excision necrotic infected sacral pressure sore, Stage IV, with partial ostectomy for osteomyelitis. Description of Surgical Findings:: The patient is a 70 y/o F with a history of stroke and diabetes mellitus presents with worsening necrotic infected sacral pressure sore. The pressure sore started in September. There was increasing drainage and odor. In the ED, WBC was 11.1. Lactate was 0.9. She had recent wound culture done on 11/02/20. It showed E. coli, Morganella morganii, Pseudomonas aeroginosa, and Actinomyces odontolyticus. She was placed on Ciprofloxacin and failed outpatient therapy. She was admitted and initially the Cipro was continued IV. Her antibiotics have been changed to Meropenem. She had a CT Pelvis done on 10/18/20. It showed no demonstrated cortical erosion or bony destruction or periosteal reaction to indicate active osteomyelitis of the lower coccygeal vertebra. The overlying soft tissues are mildly thickened/edematous possibly due to cellulitis or pressure wound. No abscess is seen. Large amount of stool throughout the colon. Minor colonic diverticulosis. Because of the odor, wound care was started with Dakin's dressing changes. I was asked to evaluate this patient for surgical options for treatment. Her last HgbA1c from [facility] was 6.9 on 12/23/18. Patient was informed of the risks and complications of the procedure including alternatives to surgery. These were discussed with the patient personally. Patient voices understanding and wishes to proceed. Encouraged patient to stop smoking as it may have deleterious effects on wound healing. Size of defect sacral area - 11 x 8.5 x 2 cm. digital marketing project manager: None Type of Anesthesia:: General Specimen's removed: 1. Necrotic infected sacral pressure sore, Stage IV, soft tissue to Pathology and Microbiology. 2. Necrotic infected sacral pressure sore, Stage IV, bone to Pathology and Microbiology. Drains: None. Estimated Blood Loss (mL): 50 ml. Description of Procedure: Patient was taken to OR in supine position and was placed under general anesthesia. She was placed in the prone position. SCD's were placed for DVT prophylaxis. Perioperative antibiotics were given intravenously. The sacral area was prepped and draped in the usual fashion. Using xylocaine with epinephrine, the sacral pressure sore was infiltrated. After waiting 5 minutes for the anesthetic to take effect, I excised the sacral pressure sore in a circular fashion through subcutaneous tissue and extensive necrotic muscle which extended down to the bone. A partial ostectomy was then performed using rongeurs. The bone looked grayish and was soft and mushy. Clinically the bone looked suspicious for osteomyelitis. Specimens from several areas of bone were taken. A rasp was used to smooth out the bony edges. After excising the extensive fat necrosis and muscle necrosis and abnormal bursal scar tissue, the remaining soft tissue showed good bleeding. Hemostasis was obtained with electrocautery. The size of the sacral pressure sore after excision was 11 x 8.5 x 2 cm. The wound was irrigated with saline. I then dressed the wound by placing Mepitel nonadherent dressing in the base of the wound followed by Kerlix gauze and Betadine and dry Kerlix gauze followed by ABD pads compression dressing. Half the soft tissue and half the bone was sent to Pathology for analysis to rule out carcinoma and to evaluate for osteomyelitis. Half the soft tissue and half the bone was sent to Microbiology for culture. A positive culture will necessitate antibiotic therapy. If pathology is positive for osteomyelitis, then roasterman IV antibiotics would be needed through a PICC line. Patient tolerated the procedure well and was sent to PACU in satisfactory condition. Patient will be sent upstairs for continued postop care. The VAC will be placed tomorrow. Anticipate increased metabolic demands. Will check a Prealbumin and encourage nutritional supplementation with protein to help the healing process. Grafts/Implants Used: None. - Complications None. - Admit VTE Documentation VTE Present on Admission: No VTE Mechan Device Prophylaxis: SCD's VTE Pharm Prophylaxis ordered?: Yes Surgery Charges CPT - 49055 ICD-10 - L89.154, I96, M86.9, E11.9, Z86.73, Z86.14, F17.200
--- NOTE | 2020-11-08 11:45 | EKG12_ITS ---
Test Reason : Blood Pressure : / mmHG Vent. Rate : 098 BPM Atrial Rate : 107 BPM P-R Int : 000 ms QRS Dur : 080 ms QT Int : 368 ms P-R-T Axes : 000 073 086 degrees QTc Int : 469 ms Atrial fibrillation Abnormal ECG When compared with ECG of 18-JUN-2020 18:54, Atrial fibrillation has replaced Sinus rhythm Confirmed by RICKI SAUCEDO, TOÑITO ([id number]), associate editor ROCKY ANGELA ([id number]) on 11/13/2020 1:15:37 PM Referred By: WILMA Confirmed By:TOÑITO ROBISON MD
[2020-11-08 11:56] LABS: Bedside Glucose 138 mg/dL (70-110)
--- NOTE | 2020-11-08 12:30 | PN_ITS ---
Patient Problems: Active and Suspected Problems (Last Updated 11/08/20 @ 11:[address] Riki Aguirre MD) Decubitus ulcer (Acute) Subjective: Patient seen and examined. She had no complaints and was lying in bed comfortably. She is for debridement of her decubitus ulcer today. Vitals/I&O's: Vital Signs Temp Pulse Resp BP Pulse Ox 97.8 F 99 18 92/72 96 11/08/20 11:20 11/08/20 12:00 11/08/20 12:00 11/08/20 12:00 11/08/20 12:00 Oxygen Flow Rate (L/min) 4 Oxygen Delivery Method Nasal Cannula Weight: 135 lb 9.349 oz Body Mass Index (BMI) 22.5 Finger Stick Blood Glucose 156 Intake and Output for Last 24 Hours 11/06/20 11/07/20 11/08/20 23:59 23:59 23:59 Intake Total 200 / 200 3053.34 / 3053.34 1116.25 / 1116.25 Output Total 1000 / 1450 2150 / 2150 Balance 200 / 200 2053.34 / 1603.34 -1033.75 / -1033.75 General: Alert, Cooperative, Lethargic, - - very hard of hearing HEENT: Atraumatic, PERRLA, EOMI, Normocephalic Oral: Dry Mucosa Neck: Supple, No JVD, Negative Carotid Bruits Lungs: - - mild wheezing in all lung peguero bilaterally. Cardiovascular: Regular rate, Regular Rhythm, Normal S1, Normal S2, No murmurs Abdomen: Bowel Sounds Present, Soft, Non Tender Extremities: No edema, Capillary Refill Less than 3 Seconds Skin: No rashes, No breakdown, - - dressing over sacral decubitus ulcer Musculoskeletal: No Tenderness to Palpation of Joints or Extremities Lymphatic: No Cervical, Supraclavicular, or Inguinal Adenopathy Neurological: Cranial nerves II-XII grossly intact, Neuro grossly intact, Motor Exam 5/5 strength throughout Psych/Mental Status: Normal Affect, Appropriate, Alert and oriented to time, place, person, mood and affect Microbiology Past 72 Hours 11/06/20 20:18 Ulcer, Decubitus - Buttock Gram Stain - Final 11/06/20 20:18 Ulcer, Decubitus - Buttock Wound Culture - Preliminary Gram negative lianne Mixed Culture 11/07/20 14:20 Mucosa - Nasopharyngeal SARS-CoV-2 Antigen (Rapid) - Final 11/07/20 13:00 Tissue - Sacral Gram Stain - Final Laboratory Results 11/07/20 16:56: POC Glucose 96 11/07/20 21:50: POC Glucose 129 H 11/08/20 05:08: WBC 8.7, RBC 3.99 L, Hgb 12.2, Hct 36.9 L, MCV 92.5, MCH 30.6, MCHC 33.1, RDW Std Deviation 46.3 H, RDW Coeff of Mirza 13.5, Plt Count 399, MPV 8.8, Immature Gran % (Auto) 0.200, Neut % (Auto) 76.3 H, Lymph % (Auto) 12.9 L, [place] % (Auto) 8.7, Eos % (Auto) 1.4, Baso % (Auto) 0.5, Absolute Neuts (auto) 6.6, Absolute Lymphs (auto) 1.12, Nucleated RBC % 0 11/08/20 05:08: Sodium 134 L, Potassium 3.6, Chloride 99, Carbon Dioxide 31.0, Anion Gap 4 L, BUN 5 L, Creatinine 0.22 L, Estim Creat Clear Calc 46.43, Est GFR (MDRD) Af Amer 399, Est GFR (MDRD) Non-Af 329, BUN/Creatinine Ratio 22.5 H, Glucose 140 H, Calcium 8.8 11/08/20 05:08: Hemoglobin A1c 5.4 11/08/20 06:50: POC Glucose 134 H 11/08/20 11:34: POC Glucose 138 H Diagnostic Data Shoulder X-Ray 11/07/20 08:13 IMPRESSION: Healing fracture of the surgical neck of the proximal left humerus. Residual deformity of the humerus persists. Electronically Signed: Erick Damico MD at 8:53 EST , Service support , Current Medications Acetaminophen (Acetaminophen 325 Mg Tablet) 650 mg PO Q6H PRN PRN PRN Reason: Pain Score 1-10/Temp > 100.7 F Al Hydroxide/Mg Hydroxide (Mag Hydrox/Al Hydrox/Simeth 30 Ml Udc) 30 ml PO Q6H PRN PRN PRN Reason: Gastric Burning Albuterol Sulfate (Albuterol 2.5 Mg/3 Ml Vial.Neb.) 2.5 mg INHALATION Q2H PRN PRN PRN Reason: Dyspnea, wheezing Albuterol/Ipratropium (Ipratropium/Albuterol Sulfate 3 Ml Ampul.Neb) 3 ml INH ALATION Q4H.RT HUANG Amlodipine Besylate (Amlodipine 10 Mg Tablet) 10 mg PO DAILY [facility] Last Admin: 11/07/20 10:57 Dose: 10 mg Documented by: Aspirin (Aspirin 81 Mg Tab.Chew) 81 mg PO DAILY@0800 [facility] Last Admin: 11/07/20 08:21 Dose: 81 mg Documented by: Clopidogrel Bisulfate (Clopidogrel Bisulfate 75 Mg Tablet) 75 mg PO DAILY [facility] Last Admin: 11/08/20 07:01 Dose: Not Given Documented by: Cyclobenzaprine HCl (Cyclobenzaprine Hcl 10 Mg Tablet) 10 mg PO BID [facility] Last Admin: 11/07/20 21:06 Dose: 10 mg Documented by: Docusate Sodium (Docusate Sodium 100 Mg Capsule) 100 mg PO BID [facility] Last Admin: 11/07/20 21:06 Dose: 100 mg Documented by: Enoxaparin Sodium (Enoxaparin 40 Mg/0.4 Ml Syringe) 40 mg SC DAILY [facility] Last Admin: 11/08/20 07:01 Dose: Not Given Documented by: Guaifenesin (Guaifenesin 10 Ml Udc (200mg/10ml)) 20 ml PO Q4H PRN PRN PRN Reason: COUGH Hydralazine HCl (Hydralazine 20 Mg/Ml Vial) 10 mg IV Q4H PRN PRN PRN Reason: SBP > 160 Hydrochlorothiazide (Hydrochlorothiazide 12.5mg) 12.5 mg PO DAILY [facility] Last Admin: 11/07/20 10:57 Dose: 12.5 mg Documented by: Meropenem 1 gm/ Sodium (Chloride) 120 mls @ 33 mls/hr IV Q8 [facility] Last Infusion: 11/08/20 09:12 Dose: Infused Documented by: Dextrose/Sodium Chloride (Dextrose 5%/0.9% Nacl) 1,000 mls @ 75 mls/hr IV .[id number] [facility] Last Admin: 11/08/20 05:33 Dose: 75 mls/hr Documented by: Insulin Human Lispro (Insulin Lispro 100 Unit/Ml Insuln.Pen) 0 unit SC ACHS [facility]; Protocol Last Admin: 11/08/20 07:16 Dose: Not Given Documented by: Lorazepam (Lorazepam 2 Mg/Ml Syringe) 0.5 mg IV Q6H PRN PRN PRN Reason: severe muscle cramps Losartan Potassium (Losartan Potassium 100 Mg Tablet) 100 mg PO DAILY [facility] Last Admin: 11/07/20 10:57 Dose: 100 mg Documented by: Magnesium Hydroxide (Magnesium Hydroxide 30 Ml Udc) 30 ml PO DAILY PRN PRN PRN Reason: Constipation Melatonin (Melatonin 3 Mg Tablet) 3 mg PO QHS PRN PRN PRN Reason: INSOMNIA Morphine Sulfate (Morphine 2 Mg/Ml Syringe) 2 mg IV Q3H PRN PRN PRN Reason: Pain Score 6-10 Last Admin: 11/08/20 05:39 Dose: 2 mg Documented by: Nicotine (Nicotine 21 Mg Patch) 21 mg TD DAILY [facility] Last Admin: 11/07/20 10:58 Dose: Not Given Documented by: Nutritional Formula (Lactose Free) (Glucerna Shake 120 Ml Liquid) 120 ml PO TIDCM [facility] Last Admin: 11/07/20 17:08 Dose: Not Given Documented by: Ondansetron HCl (Ondansetron 4 Mg/2 Ml Vial) 4 mg IV Q8H PRN PRN PRN Reason: NAUSEA/VOMITING Oxycodone HCl (Oxycodone 5 Mg Tablet) 5 mg PO Q4H PRN PRN PRN Reason: Pain Score 4-5 Last Admin: 11/07/20 01:34 Dose: 5 mg Documented by: Pantoprazole Sodium (Pantoprazole Sodium 40 Mg Tablet) 40 mg PO DAILY [facility] Last Admin: 11/07/20 10:56 Dose: 40 mg Documented by: Prochlorperazine Edisylate (Prochlorperazine 10 Mg/2 Ml Vial) 5 mg IV Q4H PRN PRN PRN Reason: Breakthrough nausea/vomiting Psyllium Hydrophilic Mucilloid (Psyllium 1 Packet) 1 packet PO DAILY PRN PRN PRN Reason: Constipation Rosuvastatin Calcium (Rosuvastatin Calcium 5 Mg Tablet) 5 mg PO QHS [facility] Last Admin: 11/07/20 21:06 Dose: 5 mg Documented by: Sodium Chloride (0.9% Saline Lock 10 Ml Syringe) 10 - 40 ml IV UD PRN PRN Reason: SALINE FLUSH Last Admin: 11/07/20 01:34 Dose: 10 ml Documented by: Sodium Hypochlorite (Dakin's Bette Half Strength (=0.25%)) 1 applic TOPICAL DAILY [facility]; Protocol Last Admin: 11/07/20 12:34 Dose: 1 applicatio Documented by: Throat Lozenges (Benzocaine/Menthol 1 Lozenge) 1 lozenge MUCOUS MEM Q2H PRN PRN PRN Reason: SORE THROAT STROKE Vital Signs/Narrative: Vital Signs Temp Pulse Resp BP Pulse Ox 11/08/20 12:00 99 18 92/72 96 11/08/20 11:45 96 18 114/83 H 99 11/08/20 11:30 88 18 96/69 99 11/08/20 11:20 97.8 F 91 18 100 11/08/20 08:35 97.5 F L 67 18 124/67 H 95 11/08/20 08:34 97.5 F L 90 124/67 H 97 Medical Necessity - Tobacco Use Smoking Status: Current every day smoker Tobacco Use: Cigarettes Assessment/Plan All Active Problems (Last Updated 11/08/20 @ 11:[address] Riki Aguirre MD) Ischemia of right lower extremity (Acute) Injury of right common femoral artery (Acute) Postoperative wound dehiscence (Acute) COPD exacerbation (Acute) acute delerium (Acute) Decubitus ulcer (Acute) Pressure ulcer of sacral region, stage 4 (Acute) Skin necrosis (Acute) Urinary retention (Acute) Urge incontinence (Acute) Nocturia (Acute) Intertrochanteric fracture of left hip (Acute) Left humeral fracture (Resolved) #Infected decubitus ulcer of the coccyx * wound culture done on 10/23/2020 grew E coli and gram negative rods, possibly Pseudomonas nand Morganella * plastic surgery on board. On IV ciprofloxacin * for debridement in the OR today by plastic surgery * on IV ciprofoxacin * #PAd and CAD: * on aspirin, plavix on hold; will resume after debridemtn * on statin and losartan. * Had stents placed in left iliac and left superior femoral arteries in 2019 #hypertension: on Norvasc, hydrochlorothiazide and losartan. IV hydralazine as needed #Right healing proximal humeral fracture * was complaining of right shoulder pain yesterday. shoulder xray done showed healing fracutre of the surgical neck of hte proximal left humerus, with residual deformity of the humerus persisting. * consult orthopedic surgery * #Hyperlipidemia: On statin #Chronic hypoxic respiratory failure due to COPD: On home oxygen. Breathing treatments with bronchodilators. Still continues to smoke. Counseled to quit. DVT prophylaxis: lovenox Inpatient E&M: [id number] [facility] Hosp L3
--- NOTE | 2020-11-08 13:21 | NURSING ---
Report called to Jennifer in PCU.
--- NOTE | 2020-11-08 14:24 | ECHOCS_ITS ---
Reason For Study: [email or web address] Procedure This was a 2D Doppler, Color Flow transthoracic echocardiogram. The study was technically difficult. PT lying in right decubitus position despite attempts to reposition. PT uncoooperative with positioning. poor accoustic windows. Contrast injection was performed. Left Ventricle Normal LV size. The estimated ejection fraction is 55 %. No evidence for diastolic dysfunction. No regional wall motion abnormalities noted. Right Ventricle Normal RV size. Normal systolic function. Atria Normal left atrium. Normal RA size. Near the junction of the RA and ivc, close of the base of the tricuspid valve there is a mobile echodensity that could be thrombus, vegetation or mass. No doppler evidence for ASD. Mitral Valve There is no mitral valve stenosis. No mitral valve insufficiency. Tricuspid Valve There is no tricuspid stenosis. Unable to estimate RV systolic pressure due to inadequate jet, pulmonary artery pressure probably normal. Aortic Valve The aortic valve is not well visualized. There is no aortic stenosis. No aortic valve insufficiency. Pulmonic Valve There is no pulmonic valvular stenosis. No pulmonic valve insufficiency. Great Vessels Normal aortic root. Pericardium/Pleural No pericardial effusion. Medication Diluted definity 3.0ml given slow IV push to enhance endocardial definition. MMode/2D Measurements & Calculations LVIDd: 4.3 cm IVSd: 0.81 cm Ao root diam: 3.0 cm LVIDs: 3.3 cm LVPWd: 0.99 cm RVDd: 3.5 cm FS: 24.4 % LAV(MOD-bp): 39.2 ml LA A4 area: 16.5 cm2 LA dimension(2D): 3.2 cm LAV(MOD-bp) Indexed: 23.4 ml/m2 LAV(MOD-sp2): 29.7 ml LAV(MOD-sp4): 44.4 ml Time Measurements MV dec time: 0.25 sec Doppler Measurements & Calculations MV E max beck: 61.2 cm/sec Lat Peak E' Beck: 7.9 cm/sec Med Peak E' Beck: 6.8 cm/sec MV A max beck: 82.8 cm/sec E/E' lat: 7.8 E/E' med: 8.9 MV E/A: 0.74 Ao V2 max: 97.9 cm/sec LV V1 max: 82.5 cm/sec Ao max P.8 mmHg LV V1 max P.7 mmHg Interpretation Summary The estimated ejection fraction is 55 %. No evidence for diastolic dysfunction. Normal RA size. Near the junction of the RA and ivc, close of the base of the tricuspid valve there is a mobile echodensity that could be thrombus, vegetation or mass. Contrast injection was performed. The study was technically difficult. Ordering Physician: Griselda Wagner Referring Physician: Cabrera Taylor Performed By: Shanelle Rowley RDCS, RVT
[2020-11-08] MEDS: Docusate Sodium 100 MG Capsule PO ×2 (14:25→22:05)
[2020-11-08] MEDS: cycloBENZAPRine HCl 10 MG Tablet PO ×2 (14:26→22:06)
[2020-11-08] MEDS: hydroCHLOROthiazide 12.5mg 12.5 MG PO (14:26)
[2020-11-08] MEDS: Aspirin 81 MG TAB.CHEW PO (14:26)
[2020-11-08] MEDS: Pantoprazole Sodium 40 MG Tablet PO (14:29)
--- NOTE | 2020-11-08 15:15 | CASEMGMT ---
SW received a call from patient's daughter, Chloé Jaramillo. She said she does not want [facility] under any circumstances. She was unhappy with [facility] last year. She wondered if [facility] or [facility] were options. SW told her SW would have to check to see if they are in network with her insurance. SW told her SW will get back to her. SW reviewed list of in network facilities and neither of those are in network. SW will call daughter tomorrow and follow up with her. Georgie GORDON MSW
[2020-11-08 16:41] LABS: Bedside Glucose 118 mg/dL (70-110)
--- NOTE | 2020-11-08 17:15 | NURSING ---
Late entry: Student documentation reviewed.
[2020-11-08] MEDS: Rosuvastatin Calcium 5 MG Tablet PO (22:06)
[2020-11-08] MEDS: oxyCODONE 5 MG Tablet PO (22:06)
[2020-11-08 22:20] LABS: Bedside Glucose 174 mg/dL (70-110)
[2020-11-09] VITALS (9 sets, daily range): BP systolic 108–150; BP diastolic 57–71; PULSE 75–95; RESP 16–18; TEMP 36.6–36.8; O2SAT 92–98; BMI 22.7
[2020-11-09] MEDS: Dextrose 5%/0.9% NaCl 1,000 ML 75 ML IV ×2 (02:15→15:51)
--- NOTE | 2020-11-09 04:37 | NURSING ---
PATIENT STILL CONTINUING TO YELL AT RN, TELLING RN, TO LEAVE HER THE FUCK ALONE AND GET OUT!! PATIENT TRIES TO HIT RN, STATES SHE IS FINE AND TO LEAVE HER ALONE NOW.
[2020-11-09 06:22] LABS: Absolute Lymphocyte Count 1.88 X10^3/uL (0.83-4.51); Absolute Neutrophil Count 6.1 X10^3/uL (2.0-7.7); Basophil# 0.05 X10^3/uL; Basophil% 0.6 % (0-1); Eosinophil# 0.26 X10^3/uL; Eosinophils% 2.9 % (0-5); Hematocrit 35.9 % (37-47); Hemoglobin 11.7 g/dL (12.0-15.0); Lymphocyte # 1.88 X10^3/ul (4.0); Lymphocyte % 20.7 % (19-41); Mean Corp Hgb Conc 32.6 g/dL (32-36); Mean Corpuscular Hgb 31.3 pg (27.0-32.0); Mean Platelet Vol. 8.9 fl (6.2-12.0); Monocyte# 0.77 X10^3/uL; Monocyte% 8.5 % (0-10); NRBC Flagged by Analyzer 0 % (0-5); Neutrophil # 6.07 X10^3/uL (2.7-7.7); Neutrophil % 66.9 % (47-70); Platelet Count 376 K/mm3 (150-450); RBC Distribution Width CV 14.1 % (11.6-14.6); RBC Distribution Width SD 49.8 fl (35.1-43.9); Red Blood Count 3.74 M/mm3 (4.2-5.4); White Blood Count 9.1 K/mm3 (4.4-11.0)
[2020-11-09 06:58] LABS: BUN 14 mg/dL (7-18); Creatinine, Serum 0.43 mg/dL (0.55-1.02); Estimated Creatinine Clearance 46.43 ml/min; Glucose 116 mg/dL (74-106)
[2020-11-09 06:59] LABS: Anion Gap 5 (5-15); BUN/Creat Ratio 32.6 RATIO (10-20); Calcium,Total 8.9 mg/dL (8.5-10.1); Chloride 103 mmol/L (98-107); EST Glomerular Filtration Rate 154 mL/min (>60); Est Glom Filt Rate - Afr Amer 186 mL/min (>60); Potassium 3.9 mmol/L (3.5-5.1); Sodium Level 138 mmol/L (136-145)
--- NOTE | 2020-11-09 09:43 | CASEMGMT ---
SW called [facility] and checked patient's benefits. She has no out of network benefits. Days 1-20 are covered at 100% and days 21-100 there is a $160 per day co-pay. SW had left a message with [facility] to see if they were in network with [facility]. They called back and left a voice mail indicating they are not in network. SW also left a message for [facility]. SW will check back in with patient's daughter. Georgie GORDON TRAILER DRIVER
[2020-11-09] MEDS: Losartan Potassium 100 MG Tablet PO (10:01)
[2020-11-09] MEDS: Docusate Sodium 100 MG Capsule PO ×2 (10:01→21:54)
[2020-11-09] MEDS: Clopidogrel Bisulfate 75 MG Tablet PO (10:01)
[2020-11-09] MEDS: amLODIPine 10 MG Tablet PO (10:01)
[2020-11-09] MEDS: hydroCHLOROthiazide 12.5mg 12.5 MG PO (10:01)
[2020-11-09] MEDS: Aspirin 81 MG TAB.CHEW PO (10:01)
[2020-11-09] MEDS: cycloBENZAPRine HCl 10 MG Tablet PO ×2 (10:01→21:54)
[2020-11-09] MEDS: Pantoprazole Sodium 40 MG Tablet PO (10:01)
[2020-11-09] MEDS: Enoxaparin 40 MG/0.4 ML Syringe SC (10:02)
[2020-11-09] MEDS: Glucerna Shake 120 ML LIQUID PO ×3 (10:12→15:52)
[2020-11-09] MEDS: DAKIN'S SOL HALF STRENGTH (=0.25%) 1 APPLIC TOPICAL (10:12)
[2020-11-09] MEDS: oxyCODONE 5 MG Tablet PO ×2 (10:16→16:00)
--- NOTE | 2020-11-09 10:56 | CASEMGMT ---
SW called patient's daughter Chloé and let her know [facility] is not in network with patient's insurance and she has no out of network benefits. CHRISSY also told her SW left a voice mail for , but SW does not think they are in network. She said she will be coming in to the hospital in about an hour. She will talk with patient and see where she wants to go. CHRISSY told her SW will check back with them after bit. Georgie GORDON COAT CHECKER
[2020-11-09] MEDS: Morphine 2 MG/ML Syringe IV (11:10)
[2020-11-09 12:00] LABS: Bedside Glucose 123 mg/dL (70-110)
--- NOTE | 2020-11-09 13:24 | PN.ID_ITS ---
Patient Problems: Active and Suspected Problems (Last Updated 11/08/20 @ 11:[address] Riki Aguirre MD) Decubitus ulcer (Acute) Subjective: Wants to leave. No fever. - Physical Exam Vitals/I&O's: Vital Signs Temp Pulse Resp BP Pulse Ox 97.8 F 93 18 108/57 L 98 11/09/20 10:30 11/09/20 10:30 11/09/20 10:30 11/09/20 10:30 11/09/20 10:30 Oxygen Flow Rate (L/min) 2 Oxygen Delivery Method Room Air Weight: 90 kg Body Mass Index (BMI) 22.5 Finger Stick Blood Glucose 156 Intake and Output for Last 24 Hours 11/07/20 11/08/20 11/09/20 23:59 23:59 23:59 Intake Total 3053.34 / 3053.34 2157.75 / 2377.75 1387.75 / 1387.75 Output Total 1000 / 1450 2150 / 2150 900 / 900 Balance 2053.34 / 1603.34 7.75 / 227.75 487.75 / 487.75 General: Alert, Cooperative, No apparent distress Lungs: Clear to auscultation, Normal air movement Cardiovascular: Regular rate, Regular Rhythm Abdomen: Soft, Non Tender, Non-Distended Skin: No rashes Microbiology Past 72 Hours 11/08/20 11:00 Tissue - Bone Gram Stain - Final 11/08/20 11:00 Tissue - Bone Wound Culture - Preliminary No growth-Final to follow 11/08/20 11:00 Tissue - Sacral Gram Stain - Final 11/08/20 11:00 Tissue - Sacral Wound Culture - Preliminary Gram positive organism 11/07/20 13:00 Tissue - Sacral Gram Stain - Final 11/07/20 13:00 Tissue - Sacral Tissue Culture - Preliminary GNR lactose java lead architect Gram negative lianne Gram positive lianne Gram positive lianne#2 Gram Positive Cocci 11/07/20 13:00 Tissue - Sacral Anaerobic Culture - Preliminary Checking for anaerobes, further studies to follow. 11/06/20 19:42 Blood Culture (Wb) - Right Wrist Blood Culture - Preliminary No growth in 48 hours. 11/06/20 19:40 Blood Culture (Wb) - Right Hand Blood Culture - Preliminary No growth in 48 hours. 11/06/20 20:18 Ulcer, Decubitus - Buttock Gram Stain - Final 11/06/20 20:18 Ulcer, Decubitus - Buttock Wound Culture - Preliminary Gram negative lianne Gram negative lianne#2 GNR lactose java lead architect Corynebacterium striatum 11/06/20 20:18 Ulcer, Decubitus - Buttock Anaerobic Culture - Preliminary Checking for anaerobes, further studies to follow. 11/07/20 14:20 Mucosa - Nasopharyngeal SARS-CoV-2 Antigen (Rapid) - Final Laboratory Results 11/08/20 13:49: Troponin I < 0.015 11/08/20 16:00: Troponin I < 0.015 11/08/20 16:28: POC Glucose 118 H 11/08/20 18:45: Troponin I < 0.015 11/08/20 21:55: POC Glucose 174 H 11/09/20 06:10: WBC 9.1, RBC 3.74 L, Hgb 11.7 L, Hct 35.9 L, MCV 96.0, MCH 31.3, MCHC 32.6, RDW Std Deviation 49.8 H, RDW Coeff of Mirza 14.1, Plt Count 376, MPV 8.9, Immature Gran % (Auto) 0.400, Neut % (Auto) 66.9, Lymph % (Auto) 20.7, [place] % (Auto) 8.5, Eos % (Auto) 2.9, Baso % (Auto) 0.6, Absolute Neuts (auto) 6.1, Absolute Lymphs (auto) 1.88, Nucleated RBC % 0 11/09/20 06:10: Sodium 138, Potassium 3.9, Chloride 103, Carbon Dioxide 30.0, Anion Gap 5, BUN 14, Creatinine 0.43 L, Estim Creat Clear Calc 46.43, Est GFR (MDRD) Af Amer 186, Est GFR (MDRD) Non-Af 154, BUN/Creatinine Ratio 32.6 H, Glucose 116 H, Calcium 8.9 11/09/20 11:33: POC Glucose 123 H Current Medications Acetaminophen (Acetaminophen 325 Mg Tablet) 650 mg PO Q6H PRN PRN PRN Reason: Pain Score 1-10/Temp > 100.7 F Al Hydroxide/Mg Hydroxide (Mag Hydrox/Al Hydrox/Simeth 30 Ml Udc) 30 ml PO Q6H PRN PRN PRN Reason: Gastric Burning Albuterol Sulfate (Albuterol 2.5 Mg/3 Ml Vial.Neb.) 2.5 mg INHALATION Q2H PRN PRN PRN Reason: Dyspnea, wheezing Amlodipine Besylate (Amlodipine 10 Mg Tablet) 10 mg PO DAILY [facility] Last Admin: 11/09/20 10:01 Dose: 10 mg Documented by: Aspirin (Aspirin 81 Mg Tab.Chew) 81 mg PO DAILY@0800 [facility] Last Admin: 11/09/20 10:01 Dose: 81 mg Documented by: Clopidogrel Bisulfate (Clopidogrel Bisulfate 75 Mg Tablet) 75 mg PO DAILY [facility] Last Admin: 11/09/20 10:01 Dose: 75 mg Documented by: Cyclobenzaprine HCl (Cyclobenzaprine Hcl 10 Mg Tablet) 10 mg PO BID [facility] Last Admin: 11/09/20 10:01 Dose: 10 mg Documented by: Docusate Sodium (Docusate Sodium 100 Mg Capsule) 100 mg PO BID [facility] Last Admin: 11/09/20 10:01 Dose: 100 mg Documented by: Enoxaparin Sodium (Enoxaparin 40 Mg/0.4 Ml Syringe) 40 mg SC DAILY [facility] Last Admin: 11/09/20 10:02 Dose: 40 mg Documented by: Guaifenesin (Guaifenesin 10 Ml Udc (200mg/10ml)) 20 ml PO Q4H PRN PRN PRN Reason: COUGH Hydralazine HCl (Hydralazine 20 Mg/Ml Vial) 10 mg IV Q4H PRN PRN PRN Reason: SBP > 160 Hydrochlorothiazide (Hydrochlorothiazide 12.5mg) 12.5 mg PO DAILY [facility] Last Admin: 11/09/20 10:01 Dose: 12.5 mg Documented by: Meropenem 1 gm/ Sodium (Chloride) 120 mls @ 33 mls/hr IV Q8 [facility] Last Infusion: 11/09/20 09:29 Dose: Infused Documented by: Dextrose/Sodium Chloride (Dextrose 5%/0.9% Nacl) 1,000 mls @ 75 mls/hr IV .[id number] [facility] Last Admin: 11/09/20 02:15 Dose: 75 mls/hr Documented by: Sodium Chloride () 250 mls @ 15 mls/hr IV .[id number] PRN PRN Reason: Saline Flush Last Infusion: 11/09/20 09:17 Dose: 15 mls/hr Documented by: Sodium Chloride () 250 mls @ 15 mls/hr IV .[id number] PRN PRN Reason: Additional IVPB Infusion Vancomycin IV Pharmacy to Dose (1 ea/ Sodium Chloride) 500 mls @ 250 mls/hr IV X1 PRN; Protocol PRN Reason: Rx to Dose Vancomycin HCl 2,000 mg/ (Sodium Chloride) 540 mls @ 250 mls/hr IV X1 ONE Stop: 11/09/20 15:39 Insulin Human Lispro (Insulin Lispro 100 Unit/Ml Insuln.Pen) 0 unit SC ACHS [facility]; Protocol Last Admin: 11/09/20 11:40 Dose: Not Given Documented by: Lorazepam (Lorazepam 2 Mg/Ml Syringe) 0.5 mg IV Q6H PRN PRN PRN Reason: severe muscle cramps Losartan Potassium (Losartan Potassium 100 Mg Tablet) 100 mg PO DAILY [facility] Last Admin: 11/09/20 10:01 Dose: 100 mg Documented by: Magnesium Hydroxide (Magnesium Hydroxide 30 Ml Udc) 30 ml PO DAILY PRN PRN PRN Reason: Constipation Melatonin (Melatonin 3 Mg Tablet) 3 mg PO QHS PRN PRN PRN Reason: INSOMNIA Morphine Sulfate (Morphine 2 Mg/Ml Syringe) 2 mg IV Q3H PRN PRN PRN Reason: Pain Score 6-10 Last Admin: 11/09/20 11:10 Dose: 2 mg Documented by: Nicotine (Nicotine 21 Mg Patch) 21 mg TD DAILY [facility] Last Admin: 11/09/20 10:18 Dose: Not Given Documented by: Nutritional Formula (Lactose Free) (Glucerna Shake 120 Ml Liquid) 120 ml PO TIDCM [facility] Last Admin: 11/09/20 12:20 Dose: 120 ml Documented by: Ondansetron HCl (Ondansetron 4 Mg/2 Ml Vial) 4 mg IV Q8H PRN PRN PRN Reason: NAUSEA/VOMITING Oxycodone HCl (Oxycodone 5 Mg Tablet) 5 mg PO Q4H PRN PRN PRN Reason: Pain Score 4-5 Last Admin: 11/09/20 10:16 Dose: 5 mg Documented by: Pantoprazole Sodium (Pantoprazole Sodium 40 Mg Tablet) 40 mg PO DAILY [facility] Last Admin: 11/09/20 10:01 Dose: 40 mg Documented by: Prochlorperazine Edisylate (Prochlorperazine 10 Mg/2 Ml Vial) 5 mg IV Q4H PRN PRN PRN Reason: Breakthrough nausea/vomiting Psyllium Hydrophilic Mucilloid (Psyllium 1 Packet) 1 packet PO DAILY PRN PRN PRN Reason: Constipation Rosuvastatin Calcium (Rosuvastatin Calcium 5 Mg Tablet) 5 mg PO QHS [facility] Last Admin: 11/08/20 22:06 Dose: 5 mg Documented by: Sodium Chloride (0.9% Saline Lock 10 Ml Syringe) 10 - 40 ml IV UD PRN PRN Reason: SALINE FLUSH Last Admin: 11/07/20 01:34 Dose: 10 ml Documented by: Sodium Chloride (0.9% Saline Lock 10 Ml Syringe) 10 - 40 ml IV UD PRN PRN Reason: SALINE FLUSH Sodium Hypochlorite (Dakin's Bette Half Strength (=0.25%)) 1 applic TOPICAL DAILY [facility]; Protocol Last Admin: 11/09/20 10:12 Dose: 1 applicatio Documented by: Throat Lozenges (Benzocaine/Menthol 1 Lozenge) 1 lozenge MUCOUS MEM Q2H PRN PRN PRN Reason: SORE THROAT Medical Necessity - Tobacco Use Smoking Status: Current every day smoker Tobacco Use: Cigarettes Route of nutrition/ use of supplements: [] Nutritional Intake: [] IV Site: [] [place] Catheter: [] - Assessment/Plan Antibiotics: [] Assessment/Plan: [] Active and Suspected Problems (Last Reviewed 04/19/20 @ 11:33 by Qian Thrasher) Decubitus ulcer (Acute) sacral osteo - OR 11/[address] Aguirre for debridement. Wound cx 11/02/20 with ecoli, morganella, pseudomonas, and actinomyces. Surg cx with GNR x2, GPC x1, and GPR x2. One cx now showing diphtheroids. Cont acacia, will add vanc. Will follow
--- NOTE | 2020-11-09 13:54 | PCM.PN.HOSP ---
Patient Problems: Active and Suspected Problems (Last Updated 11/08/20 @ 11:[address] Riki Aguirre MD) Decubitus ulcer (Acute) Subjective: Patient seen and examined. She has no complaints today. She had debridement of the decubitus ulcer by plastic surgery yesterday. While seen surgery, she was noted to be in A. fib. This is new onset A. fib for it. She was therefore taken to PCU afterwards. She has not been in A. fib since then and heart rate has been normal. Does remain hemodynamically stable. Vitals/I&O's: Vital Signs Temp Pulse Resp BP Pulse Ox 97.8 F 93 18 108/57 L 98 11/09/20 10:30 11/09/20 10:30 11/09/20 10:30 11/09/20 10:30 11/09/20 10:30 Oxygen Flow Rate (L/min) 2 Oxygen Delivery Method Room Air Weight: 198 lb 6.656 oz Body Mass Index (BMI) 22.5 Finger Stick Blood Glucose 156 Intake and Output for Last 24 Hours 11/07/20 11/08/20 11/09/20 23:59 23:59 23:59 Intake Total 3053.34 / 3053.34 2157.75 / 2377.75 1387.75 / 1387.75 Output Total 1000 / 1450 2150 / 2150 900 / 900 Balance 2053.34 / 1603.34 7.75 / 227.75 487.75 / 487.75 General: Alert, Cooperative, Lethargic, - - very hard of hearing HEENT: Atraumatic, PERRLA, EOMI, Normocephalic Oral: Dry Mucosa Neck: Supple, No JVD, Negative Carotid Bruits Lungs: - - mild wheezing in all lung peguero bilaterally. Cardiovascular: Regular rate, Regular Rhythm, Normal S1, Normal S2, No murmurs Abdomen: Bowel Sounds Present, Soft, Non Tender Extremities: No edema, Capillary Refill Less than 3 Seconds Skin: No rashes, No breakdown, - - dressing over sacral decubitus ulcer Musculoskeletal: No Tenderness to Palpation of Joints or Extremities Lymphatic: No Cervical, Supraclavicular, or Inguinal Adenopathy Neurological: Cranial nerves II-XII grossly intact, Neuro grossly intact, Motor Exam 5/5 strength throughout Psych/Mental Status: Normal Affect, Appropriate, Alert and oriented to time, place, person, mood and affect Microbiology Past 72 Hours 11/08/20 11:00 Tissue - Bone Gram Stain - Final 11/08/20 11:00 Tissue - Bone Wound Culture - Preliminary No growth-Final to follow 11/08/20 11:00 Tissue - Sacral Gram Stain - Final 11/08/20 11:00 Tissue - Sacral Wound Culture - Preliminary Gram positive organism 11/07/20 13:00 Tissue - Sacral Gram Stain - Final 11/07/20 13:00 Tissue - Sacral Tissue Culture - Preliminary 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 11/06/20 19:42 Blood Culture (Wb) - Right Wrist Blood Culture - Preliminary No growth in 48 hours. 11/06/20 19:40 Blood Culture (Wb) - Right Hand Blood Culture - Preliminary No growth in 48 hours. 11/06/20 20:18 Ulcer, Decubitus - Buttock Gram Stain - Final 11/06/20 20:18 Ulcer, Decubitus - Buttock Wound Culture - Preliminary Gram negative lianne Gram negative lianne#2 GNR lactose envelope sealing machine operator Corynebacterium striatum 11/06/20 20:18 Ulcer, Decubitus - Buttock Anaerobic Culture - Preliminary Checking for anaerobes, further studies to follow. 11/07/20 14:20 Mucosa - Nasopharyngeal SARS-CoV-2 Antigen (Rapid) - Final Laboratory Results 11/08/20 13:49: Troponin I < 0.015 11/08/20 16:00: Troponin I < 0.015 11/08/20 16:28: POC Glucose 118 H 11/08/20 18:45: Troponin I < 0.015 11/08/20 21:55: POC Glucose 174 H 11/09/20 06:10: WBC 9.1, RBC 3.74 L, Hgb 11.7 L, Hct 35.9 L, MCV 96.0, MCH 31.3, MCHC 32.6, RDW Std Deviation 49.8 H, RDW Coeff of Mirza 14.1, Plt Count 376, MPV 8.9, Immature Gran % (Auto) 0.400, Neut % (Auto) 66.9, Lymph % (Auto) 20.7, Frontier % (Auto) 8.5, Eos % (Auto) 2.9, Baso % (Auto) 0.6, Absolute Neuts (auto) 6.1, Absolute Lymphs (auto) 1.88, Nucleated RBC % 0 11/09/20 06:10: Sodium 138, Potassium 3.9, Chloride 103, Carbon Dioxide 30.0, Anion Gap 5, BUN 14, Creatinine 0.43 L, Estim Creat Clear Calc 46.43, Est GFR (MDRD) Af Amer 186, Est GFR (MDRD) Non-Af 154, BUN/Creatinine Ratio 32.6 H, Glucose 116 H, Calcium 8.9 11/09/20 11:33: POC Glucose 123 H Current Medications Acetaminophen (Acetaminophen 325 Mg Tablet) 650 mg PO Q6H PRN PRN PRN Reason: Pain Score 1-10/Temp > 100.7 F Al Hydroxide/Mg Hydroxide (Mag Hydrox/Al Hydrox/Simeth 30 Ml Udc) 30 ml PO Q6H PRN PRN PRN Reason: Gastric Burning Albuterol Sulfate (Albuterol 2.5 Mg/3 Ml Vial.Neb.) 2.5 mg INHALATION Q2H PRN PRN PRN Reason: Dyspnea, wheezing Amlodipine Besylate (Amlodipine 10 Mg Tablet) 10 mg PO DAILY [facility] Last Admin: 11/09/20 10:01 Dose: 10 mg Documented by: Aspirin (Aspirin 81 Mg Tab.Chew) 81 mg PO DAILY@0800 [facility] Last Admin: 11/09/20 10:01 Dose: 81 mg Documented by: Clopidogrel Bisulfate (Clopidogrel Bisulfate 75 Mg Tablet) 75 mg PO DAILY [facility] Last Admin: 11/09/20 10:01 Dose: 75 mg Documented by: Cyclobenzaprine HCl (Cyclobenzaprine Hcl 10 Mg Tablet) 10 mg PO BID [facility] Last Admin: 11/09/20 10:01 Dose: 10 mg Documented by: Docusate Sodium (Docusate Sodium 100 Mg Capsule) 100 mg PO BID [facility] Last Admin: 11/09/20 10:01 Dose: 100 mg Documented by: Enoxaparin Sodium (Enoxaparin 40 Mg/0.4 Ml Syringe) 40 mg SC DAILY [facility] Last Admin: 11/09/20 10:02 Dose: 40 mg Documented by: Guaifenesin (Guaifenesin 10 Ml Udc (200mg/10ml)) 20 ml PO Q4H PRN PRN PRN Reason: COUGH Hydralazine HCl (Hydralazine 20 Mg/Ml Vial) 10 mg IV Q4H PRN PRN PRN Reason: SBP > 160 Hydrochlorothiazide (Hydrochlorothiazide 12.5mg) 12.5 mg PO DAILY [facility] Last Admin: 11/09/20 10:01 Dose: 12.5 mg Documented by: Meropenem 1 gm/ Sodium (Chloride) 120 mls @ 33 mls/hr IV Q8 [facility] Last Infusion: 11/09/20 09:29 Dose: Infused Documented by: Dextrose/Sodium Chloride (Dextrose 5%/0.9% Nacl) 1,000 mls @ 75 mls/hr IV .[id number] [facility] Last Admin: 11/09/20 02:15 Dose: 75 mls/hr Documented by: Sodium Chloride () 250 mls @ 15 mls/hr IV .[id number] PRN PRN Reason: Saline Flush Last Infusion: 11/09/20 09:17 Dose: 15 mls/hr Documented by: Sodium Chloride () 250 mls @ 15 mls/hr IV .[id number] PRN PRN Reason: Additional IVPB Infusion Vancomycin IV Pharmacy to Dose (1 ea/ Sodium Chloride) 500 mls @ 250 mls/hr IV X1 PRN; Protocol PRN Reason: Rx to Dose Vancomycin HCl 2,000 mg/ (Sodium Chloride) 540 mls @ 250 mls/hr IV X1 ONE Stop: 11/09/20 15:39 Insulin Human Lispro (Insulin Lispro 100 Unit/Ml Insuln.Pen) 0 unit SC ACHS [facility]; Protocol Last Admin: 11/09/20 11:40 Dose: Not Given Documented by: Lorazepam (Lorazepam 2 Mg/Ml Syringe) 0.5 mg IV Q6H PRN PRN PRN Reason: severe muscle cramps Losartan Potassium (Losartan Potassium 100 Mg Tablet) 100 mg PO DAILY [facility] Last Admin: 11/09/20 10:01 Dose: 100 mg Documented by: Magnesium Hydroxide (Magnesium Hydroxide 30 Ml Udc) 30 ml PO DAILY PRN PRN PRN Reason: Constipation Melatonin (Melatonin 3 Mg Tablet) 3 mg PO QHS PRN PRN PRN Reason: INSOMNIA Morphine Sulfate (Morphine 2 Mg/Ml Syringe) 2 mg IV Q3H PRN PRN PRN Reason: Pain Score 6-10 Last Admin: 11/09/20 11:10 Dose: 2 mg Documented by: Nicotine (Nicotine 21 Mg Patch) 21 mg TD DAILY [facility] Last Admin: 11/09/20 10:18 Dose: Not Given Documented by: Nutritional Formula (Lactose Free) (Glucerna Shake 120 Ml Liquid) 120 ml PO TIDCM [facility] Last Admin: 11/09/20 12:20 Dose: 120 ml Documented by: Ondansetron HCl (Ondansetron 4 Mg/2 Ml Vial) 4 mg IV Q8H PRN PRN PRN Reason: NAUSEA/VOMITING Oxycodone HCl (Oxycodone 5 Mg Tablet) 5 mg PO Q4H PRN PRN PRN Reason: Pain Score 4-5 Last Admin: 11/09/20 10:16 Dose: 5 mg Documented by: Pantoprazole Sodium (Pantoprazole Sodium 40 Mg Tablet) 40 mg PO DAILY [facility] Last Admin: 11/09/20 10:01 Dose: 40 mg Documented by: Prochlorperazine Edisylate (Prochlorperazine 10 Mg/2 Ml Vial) 5 mg IV Q4H PRN PRN PRN Reason: Breakthrough nausea/vomiting Psyllium Hydrophilic Mucilloid (Psyllium 1 Packet) 1 packet PO DAILY PRN PRN PRN Reason: Constipation Rosuvastatin Calcium (Rosuvastatin Calcium 5 Mg Tablet) 5 mg PO QHS [facility] Last Admin: 11/08/20 22:06 Dose: 5 mg Documented by: Sodium Chloride (0.9% Saline Lock 10 Ml Syringe) 10 - 40 ml IV UD PRN PRN Reason: SALINE FLUSH Last Admin: 11/07/20 01:34 Dose: 10 ml Documented by: Sodium Chloride (0.9% Saline Lock 10 Ml Syringe) 10 - 40 ml IV UD PRN PRN Reason: SALINE FLUSH Sodium Hypochlorite (Dakin's Bette Half Strength (=0.25%)) 1 applic TOPICAL DAILY [facility]; Protocol Last Admin: 11/09/20 10:12 Dose: 1 applicatio Documented by: Throat Lozenges (Benzocaine/Menthol 1 Lozenge) 1 lozenge MUCOUS MEM Q2H PRN PRN PRN Reason: SORE THROAT STROKE Vital Signs/Narrative: Vital Signs Temp Pulse Resp BP Pulse Ox 11/09/20 10:30 97.8 F 93 18 108/57 L 98 11/09/20 10:00 95 Medical Necessity - Tobacco Use Smoking Status: Current every day smoker Tobacco Use: Cigarettes Assessment/Plan All Active Problems (Last Updated 11/08/20 @ 11:[address] Riki Aguirre MD) Ischemia of right lower extremity (Acute) Injury of right common femoral artery (Acute) Postoperative wound dehiscence (Acute) COPD exacerbation (Acute) acute delerium (Acute) Decubitus ulcer (Acute) Pressure ulcer of sacral region, stage 4 (Acute) Skin necrosis (Acute) Urinary retention (Acute) Urge incontinence (Acute) Nocturia (Acute) Intertrochanteric fracture of left hip (Acute) Left humeral fracture (Resolved) #Infected decubitus ulcer of the coccyx wound culture done on 10/23/2020 grew E coli and gram negative rods, possibly Pseudomonas nand Morganella plastic surgery on board. On IV ciprofloxacin Debridement done by plastic surgery yesterday. on IV meropenem #PAD and CAD: on aspirin, plavix on hold on statin and losartan. Had stents placed in left iliac and left superior femoral arteries in 2019 #?new onset paroxysmal afib And went to A. fib yesterday in the operating room. EKG done today showed EF of 55% with no evidence of diastolic dysfunction and normal right atrial size. Near the junction of the right atrium and IVC close to the base of the tricuspid valve there was a mobile echodensity that could be thrombus, vegetation or mass. Cardiology consulted on account of this abnormal echo finding. #hypertension: on Norvasc, hydrochlorothiazide and losartan. IV hydralazine as needed #Right healing proximal humeral fracture was complaining of right shoulder pain yesterday. shoulder xray done showed healing fracutre of the surgical neck of hte proximal left humerus, with residual deformity of the humerus persisting. I did discuss with Dr Kapoor, who recommended that she follow up with orthopedic surgery on outpatient basis. #Hyperlipidemia: On statin #Chronic hypoxic respiratory failure due to COPD: On home oxygen. Breathing treatments with bronchodilators. #Nicotine dependence: counseled to quit. Nicotine patch 21mg daily DVT prophylaxis: lovenox Inpatient E&M: [id number] [facility] L[facility]
--- NOTE | 2020-11-09 14:17 | CON.PCM_ITS ---
Reason for Consult Date of Consultation: 11/09/20 Reason for Consultation: Abnormal echo History of Present Illness: The patient is a 70 year old F [admitted with infected decubitus ulcer. She underwent debridement for this and also is on antibiotics. Patient also has atrial fibrillation. Cardiology consult was requested because of an abnormal echo. Echocardiography revealed an echodensity in the right atrium that could be a vegetation or thrombus or mass. Patient denies any cardiac complaints.] Past Medical History Allergies/Adverse Reactions: Allergies amoxicillin [From Augmentin] Allergy (Verified 11/06/20 18:58) Rash atorvastatin [From Lipitor] Allergy (Verified 11/06/20 18:58) Other clavulanic acid [From Augmentin] Allergy (Verified 11/06/20 18:58) Rash gabapentin Allergy (Verified 11/06/20 18:58) Nausea quinapril [From Accupril] Allergy (Verified 11/06/20 18:58) Rash fluoxetine Adverse Reaction (Verified 11/06/20 18:58) Other Home Medications: Ambulatory Orders Medication Instructions Recorded Hydrochlorothiazide [Hctz] 12.5 mg PO DAILY 06/16/18 Losartan Potassium [Cozaar] 100 mg PO DAILY 06/16/18 Rosuvastatin Calcium 5 mg PO QHS 09/08/18 Clopidogrel Bisulfate [Plavix] 75 mg PO DAILY 02/12/19 metFORMIN (XR) [Glucophage Xr] 500 mg PO BID 04/30/20 Hydrocodone/Acetaminophen 7.5 - 325 mg PO BID 08/07/20 [Hydrocodon-Acetaminophen 5-325] Amlodipine [Norvasc] 10 mg PO DAILY 11/06/20 Aspirin [Aspirin, Baby] 81 mg PO DAILY@0800 11/06/20 Ciprofloxacin [Cipro] 500 mg PO BID 11/06/20 Cyclobenzaprine HCl 10 mg PO BID 11/06/20 Docusate Sodium [Colace] 100 mg PO BID 11/06/20 Ipratropium/Albuterol Sulfate 3 ml INHALATION Q4H.RT 11/06/20 [Duoneb] Lansoprazole [Prevacid] 30 mg PO DAILY 11/06/20 Multivitamin with Minerals 1 ea PO DAILY 11/06/20 [Multiple Vitamin] Naproxen [Naprosyn] 500 mg PO BID PRN PRN 11/06/20 Past Medical History (Chronic Problems): Chronic Problems (Last Updated 11/08/20 @ 11:[address] Riki Aguirre MD) Ulcer of right lower leg (Chronic) Ulcer of right groin with fat layer exposed (Chronic) Wound of right lower extremity (Chronic) Right lower extremity with fat layer exposed Compression fracture (Chronic) Debility (Chronic) COPD (chronic obstructive pulmonary disease) (Chronic) Chronic respiratory failure with hypoxia (Chronic) Osteomyelitis of pelvic region (Chronic) History of stroke (Chronic) History of MRSA infection (Chronic) Hx of tonsillectomy (Chronic) Hx of bladder repair surgery (Chronic) History of partial hysterectomy (Chronic) History of lumpectomy of right breast (Chronic) History of right-sided carotid endarterectomy (Chronic) 2009 Hx TIA/stroke w/o resid (Chronic) Diabetes (Chronic) Neurogenic bladder (Chronic) Neurogenic bladder (Chronic) HTN (hypertension) (Chronic) Chronic ulcer of left heel with fat layer exposed (Chronic) Decubitus ulcer of left heel, stage 4 (Chronic) PAD (peripheral artery disease) (Chronic) Tobacco abuse (Chronic) Surgical History: total hip arthroplasty, - - Bladder Surgery x 2, right carotid endarectomy, bladder stimulator, bilateral lower extremity PCI most recently 2018 left iliac and left SFA, left hip surgery following fracture, hysterectomy. 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 Lives: Spouse/ Significant Other Smoking Status: Current every day smoker Tobacco Use: Cigarettes Alcohol: None Drugs: None Objective: Vital Signs Temp Pulse Resp BP Pulse Ox 97.8 F 93 18 108/57 L 98 11/09/20 10:30 11/09/20 10:30 11/09/20 10:30 11/09/20 10:30 11/09/20 10:30 Oxygen Flow Rate (L/min) 2 Oxygen Delivery Method Room Air Weight: 198 lb 6.656 oz Body Mass Index (BMI) 22.5 Finger Stick Blood Glucose 156 Intake and Output for Last 24 Hours 11/07/20 11/08/20 11/09/20 23:59 23:59 23:59 Intake Total 3053.34 / 3053.34 2157.75 / 2377.75 1387.75 / 1387.75 Output Total 1000 / 1450 2150 / 2150 900 / 900 Balance 2053.34 / 1603.34 7.75 / 227.75 487.75 / 487.75 General: Awake, Alert, Oriented x 3 HEENT: Atraumatic Oral: Moist Mucosa Neck: Supple Lungs: Clear to auscultation Cardiovascular: Irregular Rhythm 11/06/20 19:40: RDW Std Deviation 46.5 H, RDW Coeff of Mirza 13.8, Absolute Lymphs (auto) 0.93 11/06/20 19:40: Estim Creat Clear Calc 46.43, AST 5 L, ALT 8 L, Alkaline Phosphatase 98, Total Protein 6.9, Albumin 2.8 L, Globulin 4.1 11/07/20 01:40: S.aureus Protein A PCR NEGATIVE, MRSA (PCR) Negative 11/07/20 05:15: RDW Std Deviation 47.1 H, RDW Coeff of Mirza 13.8, Absolute Lymphs (auto) 1.19 11/07/20 05:15: Estim Creat Clear Calc 46.43, AST 8 L, ALT 8 L, Alkaline Phosphatase 86, Total Protein 6.1 L, Albumin 2.4 L, Globulin 3.7, Albumin/Globulin Ratio 0.6 L 11/07/20 06:33: POC Glucose 135 H 11/07/20 11:59: POC Glucose 181 H 11/07/20 16:56: POC Glucose 96 11/07/20 21:50: POC Glucose 129 H 11/08/20 05:08: RDW Std Deviation 46.3 H, RDW Coeff of Mirza 13.5, Absolute Lymphs (auto) 1.12 11/08/20 05:08: Estim Creat Clear Calc 46.43 11/08/20 06:50: POC Glucose 134 H 11/08/20 11:34: POC Glucose 138 H 11/08/20 16:00: Troponin I < 0.015 11/08/20 16:28: POC Glucose 118 H 11/08/20 18:45: Troponin I < 0.015 11/08/20 21:55: POC Glucose 174 H 11/09/20 06:10: WBC 9.1, RBC 3.74 L, Hgb 11.7 L, Hct 35.9 L, MCV 96.0, MCH 31.3, MCHC 32.6, RDW Std Deviation 49.8 H, RDW Coeff of Mirza 14.1, Plt Count 376, MPV 8.9, Immature Gran % (Auto) 0.400, Neut % (Auto) 66.9, Lymph % (Auto) 20.7, Kendall % (Auto) 8.5, Eos % (Auto) 2.9, Baso % (Auto) 0.6, Absolute Neuts (auto) 6.1, Absolute Lymphs (auto) 1.88, Nucleated RBC % 0 11/09/20 06:10: Sodium 138, Potassium 3.9, Chloride 103, Carbon Dioxide 30.0, Anion Gap 5, BUN 14, Creatinine 0.43 L, Estim Creat Clear Calc 46.43, Est GFR (MDRD) Af Amer 186, Est GFR (MDRD) Non-Af 154, BUN/Creatinine Ratio 32.6 H, Glucose 116 H, Calcium 8.9 11/09/20 11:33: POC Glucose 123 H Rhythm: EKG: ECHO: Stress Test: Cardiac Cath: PCI: CT Surgery: Holter monitor: EPS: PPM: CXR: Chest CT Scan: Assessment/Plan 1. Abnormal echo: Echodensity in the right atrium near the junction with the IVC could be vegetation or thrombus or a mass lesion. Patient has atrial fibrillation as well. I think it will be reasonable to anticoagulate the patient with one of the newer oral anticoagulants. Patient has history of iliac and SFA stenting and also TIA. It is unclear if she is on dual antiplatelet therapy from the TIA standpoint. If it is just from the stent standpoint then it will be reasonable to discontinue the Plavix and keep the patient on aspirin and one of the oral anticoagulants. Also, consider longer duration of antibiotic therapy as well if felt to be clinically appropriate. In about 2 to 4 weeks patient can get a follow-up echo to see if there is echodensity persists. Cardiac MRI can be a consideration as well. 2. Atrial fibrillation: Rate controlled. Oral anticoagulation recommended as mentioned above.
--- NOTE | 2020-11-09 14:33 | CASEMGMT ---
CHRISSY received a voice mail from Mayra at [facility] and they are not in network with patient's insurance. SW went to patient's room and patient's daughter was here. SW asked if they had talked and she said she just got here so she does not know yet. She then asked SW if Dr Aguirre is recommending short term why can't she just stay here. CHRISSY told her that when she is medically ready she needs to be discharged on to the next level of care. We cannot keep her here just to finish the IV antibiotics etc. She asked who determines when she is medically ready. SW told her the physician determines this. She asked why we are looking at facilities for her to go. SW told her she had said Dr Aguirre recommended this so SW started to call facilities per her request. CHRISSY told her if they feel she can go home and get appropriate care that is up to them. They do not have to send her to the [facility], it is up to them. She wanted to talk with Dr Aguirre. CHRISSY told her SW does not know when he will be coming to see patient. He does not give us his schedule. CHRISSY gave her the list of facilities from patient's insurance website to review. (Patient's daughter was provided a list of SNF providers including quality and resource use data and consistent with the patient?s preferred geographic region, medical needs, and insurance network. She was given this list by CHRISSY on MS[employer], however patient's daughter does not have the list.) CHRISSY did let her know [facility] is not in network. They were going to look over the list and SW will check back. Patient's daughter was provided a list of SNF providers including quality and resource use data and consistent with the patient?s preferred geographic region, medical needs, and insurance network. She was given this list by CHRISSY on MS3, however patient's daughter does not have the list. Patient requires insurance authorization to go to a SNF. However, patient's daughter and patient have not given CHRISSY any choices other than ones that are out of network. Georgie GORDON LAB INTERN
--- NOTE | 2020-11-09 14:53 | NURSING ---
wound photo: sacrum
--- NOTE | 2020-11-09 15:29 | CASEMGMT ---
CHRISSY spoke with patient's daughter again per her request. She asked how long will the IV's be and how long will she have the wound vac. RN NIMA spoke with wound RN who felt it will likely be 6-8 months. SCOOBY HERRING spoke with Dr Yousif who felt IV abx will be at least 6 weeks. CHRISSY told her this information. She wants to call [facility] to see if they can do these things. CHRISSY did tell her home health RN will have to do the wound vac, but as far as the IV antibiotics someone in the home will have to be taught. CHRISSY told her patient will have to be here through the weekend. She needs insurance approval for a SNF and if she goes home the RN CM will have to arrange for the IV antibiotics. Georgie GORDON MSW
--- NOTE | 2020-11-09 15:33 | PCM.RX.CS ---
Consult Pharmacy has been consulted to manage selected antiobiotic: Vancomycin Type of Consult: New start Suspected Infection: Skin/Soft tissue Labs: Sodium 138 mmol/L (136-145) 11/09/20 06:10 Potassium 3.9 mmol/L (3.5-5.1) 11/09/20 06:10 Chloride 103 mmol/L (98-107) 11/09/20 06:10 Carbon Dioxide 30.0 mmol/L (21.0-32.0) 11/09/20 06:10 Anion Gap 5 (5-15) 11/09/20 06:10 BUN 14 mg/dL (7-18) 11/09/20 06:10 Creatinine 0.43 mg/dL (0.55-1.02) L 11/09/20 06:10 Est GFR (MDRD) Af Amer 186 mL/min (>60) 11/09/20 06:10 Est GFR (MDRD) Non-Af 154 mL/min (>60) 11/09/20 06:10 BUN/Creatinine Ratio 32.6 RATIO (10-20) H 11/09/20 06:10 Glucose 116 mg/dL (74-106) H 11/09/20 06:10 Microbiology: Microbiology 11/08/20 11:00 Tissue - Bone Gram Stain - Final 11/08/20 11:00 Tissue - Bone Wound Culture - Preliminary No growth-Final to follow 11/08/20 11:00 Tissue - Sacral Gram Stain - Final 11/08/20 11:00 Tissue - Sacral Wound Culture - Preliminary Gram positive organism 11/07/20 13:00 Tissue - Sacral Gram Stain - Final 11/07/20 13:00 Tissue - Sacral Tissue Culture - 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 11/06/20 19:42 Blood Culture (Wb) - Right Wrist Blood Culture - Preliminary No growth in 48 hours. 11/06/20 19:40 Blood Culture (Wb) - Right Hand Blood Culture - Preliminary No growth in 48 hours. 11/06/20 20:18 Ulcer, Decubitus - Buttock Gram Stain - Final 11/06/20 20:18 Ulcer, Decubitus - Buttock Wound Culture - Preliminary Gram negative lianne Gram negative lianne#2 GNR lactose encyclopedia research worker Corynebacterium striatum 11/06/20 20:18 Ulcer, Decubitus - Buttock Anaerobic Culture - Preliminary Checking for anaerobes, further studies to follow. 11/07/20 14:20 Mucosa - Nasopharyngeal SARS-CoV-2 Antigen (Rapid) - Final Weight used for dosin kg Estimated Creatinine Clearance: 71.5ML/MIN Goal Trough: 15-20 mcg/mL Pharmacy Plan for Drug Dosing: Will give initial dose of 2000mg IV x1, then continue with 1250mg IV q12h per [facility] dosing protocol. Will order a trough to be checked before the 4th total dose. The patient's CrCl of 71.5ml/min was calculated using an adjusted body weight of 70.2kg and a SCr rounded up to 0.8 since the patient is over 65 years old. Pharmacy Service will continue to monitor and adjust dosing as required. Follow-Up Labs: Trough Vancomycin Labs to be done on [date and time ordered]: 11/11/20 01:30
--- NOTE | 2020-11-09 16:16 | CASEMGMT ---
Call from Sandy at [facility] and she states they are not able to take pt back as they feel pt needs skilled rehab at this time. Sandy states that pt refuses to stay off coccyx which has caused the wound to worsen. Sandy also states that pt's is no longer able to move pt and daughter only comes in maybe once daily. Sandy states that daughter told her that [facility] and Dr. Aguirre were recommending HHC at discharge but actually SNF has been recommended by therapy and Dr. Aguirre(per his consultation note) as pt is also mod/dep assist of 2, wound vac, iv antibx. Sandy states that she did notify daughter that they will not take pt back at this time. Sandy states that a week ago, daughter wanted pt in SNF and states no hospital would admit her to get her to SNF and Sandy is unsure why daughter has changed her mind as the last time pt went to SNF, she did very well and came home much stronger. CM to follow. Kal ALMODOVAR CM
--- NOTE | 2020-11-09 16:41 | PN.SURG_ITS ---
Patient Problems: Active and Suspected Problems (Last Updated 11/08/20 @ 11:[address] Riki Aguirre MD) Decubitus ulcer (Acute) Subjective: Postop day #1 Patient resting in bed. - Physical Exam Vitals/I&O's: Vital Signs Temp Pulse Resp BP Pulse Ox 98.1 F 88 18 117/71 93 11/09/20 16:30 11/09/20 16:30 11/09/20 16:30 11/09/20 16:30 11/09/20 16:30 Oxygen Flow Rate (L/min) 2 Oxygen Delivery Method Room Air Weight: 198 lb 6.656 oz Body Mass Index (BMI) 22.5 Finger Stick Blood Glucose 156 Intake and Output for Last 24 Hours 11/07/20 11/08/20 11/09/20 23:59 23:59 23:59 Intake Total 3053.34 / 3053.34 2157.75 / 2377.75 3124.75 / 3124.75 Output Total 1000 / 1450 2150 / 2150 1300 / 1300 Balance 2053.34 / 1603.34 7.75 / 227.75 1824.75 / 1824.75 General: Alert, Non-Cooperative HEENT: Atraumatic Oral: Moist Mucosa Lungs: Normal air movement Cardiovascular: Regular rate Extremities: Capillary Refill Less than 3 Seconds Skin: Ulcer/ Wound - Sacral ulcer is stable. No active bleeding. Wound VAC in place. 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 11/06/20 19:42 Blood Culture (Wb) - Right Wrist Blood Culture - Preliminary No growth in 48 hours. 11/06/20 19:40 Blood Culture (Wb) - Right Hand Blood Culture - Preliminary No growth in 48 hours. 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 11/07/20 14:20 Mucosa - Nasopharyngeal SARS-CoV-2 Antigen (Rapid) - Final Laboratory Results 11/08/20 21:55: POC Glucose 174 H 11/09/20 06:10: WBC 9.1, RBC 3.74 L, Hgb 11.7 L, Hct 35.9 L, MCV 96.0, MCH 31.3, MCHC 32.6, RDW Std Deviation 49.8 H, RDW Coeff of Mirza 14.1, Plt Count 376, MPV 8.9, Immature Gran % (Auto) 0.400, Neut % (Auto) 66.9, Lymph % (Auto) 20.7, Churchill % (Auto) 8.5, Eos % (Auto) 2.9, Baso % (Auto) 0.6, Absolute Neuts (auto) 6.1, Absolute Lymphs (auto) 1.88, Nucleated RBC % 0 11/09/20 06:10: Sodium 138, Potassium 3.9, Chloride 103, Carbon Dioxide 30.0, Anion Gap 5, BUN 14, Creatinine 0.43 L, Estim Creat Clear Calc 46.43, Est GFR (MDRD) Af Amer 186, Est GFR (MDRD) Non-Af 154, BUN/Creatinine Ratio 32.6 H, Glucose 116 H, Calcium 8.9 11/09/20 11:33: POC Glucose 123 H Current Medications Acetaminophen (Acetaminophen 325 Mg Tablet) 650 mg PO Q6H PRN PRN PRN Reason: Pain Score 1-10/Temp > 100.7 F Al Hydroxide/Mg Hydroxide (Mag Hydrox/Al Hydrox/Simeth 30 Ml Udc) 30 ml PO Q6H PRN PRN PRN Reason: Gastric Burning Albuterol Sulfate (Albuterol 2.5 Mg/3 Ml Vial.Neb.) 2.5 mg INHALATION Q2H PRN PRN PRN Reason: Dyspnea, wheezing Amlodipine Besylate (Amlodipine 10 Mg Tablet) 10 mg PO DAILY [facility] Last Admin: 11/09/20 10:01 Dose: 10 mg Documented by: Aspirin (Aspirin 81 Mg Tab.Chew) 81 mg PO DAILY@0800 [facility] Last Admin: 11/09/20 10:01 Dose: 81 mg Documented by: Clopidogrel Bisulfate (Clopidogrel Bisulfate 75 Mg Tablet) 75 mg PO DAILY [facility] Last Admin: 11/09/20 10:01 Dose: 75 mg Documented by: Cyclobenzaprine HCl (Cyclobenzaprine Hcl 10 Mg Tablet) 10 mg PO BID [facility] Last Admin: 11/09/20 10:01 Dose: 10 mg Documented by: Docusate Sodium (Docusate Sodium 100 Mg Capsule) 100 mg PO BID [facility] Last Admin: 11/09/20 10:01 Dose: 100 mg Documented by: Enoxaparin Sodium (Enoxaparin 40 Mg/0.4 Ml Syringe) 40 mg SC DAILY [facility] Last Admin: 11/09/20 10:02 Dose: 40 mg Documented by: Guaifenesin (Guaifenesin 10 Ml Udc (200mg/10ml)) 20 ml PO Q4H PRN PRN PRN Reason: COUGH Hydralazine HCl (Hydralazine 20 Mg/Ml Vial) 10 mg IV Q4H PRN PRN PRN Reason: SBP > 160 Hydrochlorothiazide (Hydrochlorothiazide 12.5mg) 12.5 mg PO DAILY [facility] Last Admin: 11/09/20 10:01 Dose: 12.5 mg Documented by: Meropenem 1 gm/ Sodium (Chloride) 120 mls @ 33 mls/hr IV Q8 [facility] Last Infusion: 11/09/20 17:44 Dose: Infused Documented by: Dextrose/Sodium Chloride (Dextrose 5%/0.9% Nacl) 1,000 mls @ 75 mls/hr IV .[id number] [facility] Last Infusion: 11/09/20 17:55 Dose: 75 mls/hr Documented by: Sodium Chloride () 250 mls @ 15 mls/hr IV .[id number] PRN PRN Reason: Saline Flush Last Infusion: 11/09/20 16:19 Dose: 15 mls/hr Documented by: Sodium Chloride () 250 mls @ 15 mls/hr IV .[id number] PRN PRN Reason: Additional IVPB Infusion Vancomycin IV Pharmacy to Dose (1 ea/ Sodium Chloride) 500 mls @ 250 mls/hr IV X1 PRN; Protocol PRN Reason: Rx to Dose Vancomycin HCl 1,250 mg/ (Sodium Chloride) 275 mls @ 167 mls/hr IV Q12H [facility] Insulin Human Lispro (Insulin Lispro 100 Unit/Ml Insuln.Pen) 0 unit SC ACHS [facility]; Protocol Last Admin: 11/09/20 15:54 Dose: Not Given Documented by: Lorazepam (Lorazepam 2 Mg/Ml Syringe) 0.5 mg IV Q6H PRN PRN PRN Reason: severe muscle cramps Losartan Potassium (Losartan Potassium 100 Mg Tablet) 100 mg PO DAILY [facility] Last Admin: 11/09/20 10:01 Dose: 100 mg Documented by: Magnesium Hydroxide (Magnesium Hydroxide 30 Ml Udc) 30 ml PO DAILY PRN PRN PRN Reason: Constipation Melatonin (Melatonin 3 Mg Tablet) 3 mg PO QHS PRN PRN PRN Reason: INSOMNIA Morphine Sulfate (Morphine 2 Mg/Ml Syringe) 2 mg IV Q3H PRN PRN PRN Reason: Pain Score 6-10 Last Admin: 11/09/20 11:10 Dose: 2 mg Documented by: Nicotine (Nicotine 21 Mg Patch) 21 mg TD DAILY [facility] Last Admin: 11/09/20 10:18 Dose: Not Given Documented by: Nutritional Formula (Lactose Free) (Glucerna Shake 120 Ml Liquid) 120 ml PO TIDCM [facility] Last Admin: 11/09/20 15:52 Dose: 120 ml Documented by: Ondansetron HCl (Ondansetron 4 Mg/2 Ml Vial) 4 mg IV Q8H PRN PRN PRN Reason: NAUSEA/VOMITING Oxycodone HCl (Oxycodone 5 Mg Tablet) 5 mg PO Q4H PRN PRN PRN Reason: Pain Score 4-5 Last Admin: 11/09/20 16:00 Dose: 5 mg Documented by: Pantoprazole Sodium (Pantoprazole Sodium 40 Mg Tablet) 40 mg PO DAILY [facility] Last Admin: 11/09/20 10:01 Dose: 40 mg Documented by: Prochlorperazine Edisylate (Prochlorperazine 10 Mg/2 Ml Vial) 5 mg IV Q4H PRN PRN PRN Reason: Breakthrough nausea/vomiting Psyllium Hydrophilic Mucilloid (Psyllium 1 Packet) 1 packet PO DAILY PRN PRN PRN Reason: Constipation Rosuvastatin Calcium (Rosuvastatin Calcium 5 Mg Tablet) 5 mg PO QHS [facility] Last Admin: 11/08/20 22:06 Dose: 5 mg Documented by: Sodium Chloride (0.9% Saline Lock 10 Ml Syringe) 10 - 40 ml IV UD PRN PRN Reason: SALINE FLUSH Last Admin: 11/07/20 01:34 Dose: 10 ml Documented by: Sodium Chloride (0.9% Saline Lock 10 Ml Syringe) 10 - 40 ml IV UD PRN PRN Reason: SALINE FLUSH Throat Lozenges (Benzocaine/Menthol 1 Lozenge) 1 lozenge MUCOUS MEM Q2H PRN PRN PRN Reason: SORE THROAT Medical Necessity - Tobacco Use Smoking Status: Current every day smoker Tobacco Use: Cigarettes Assessment/Plan All Active Problems (Last Updated 11/08/20 @ 11:[address] Riki Aguirre MD) Ischemia of right lower extremity (Acute) Injury of right common femoral artery (Acute) Postoperative wound dehiscence (Acute) COPD exacerbation (Acute) acute delerium (Acute) Decubitus ulcer (Acute) Pressure ulcer of sacral region, stage 4 (Acute) Skin necrosis (Acute) Urinary retention (Acute) Urge incontinence (Acute) Nocturia (Acute) Intertrochanteric fracture of left hip (Acute) Left humeral fracture (Resolved) 1. Necrotic infected sacral pressure sore, Stage IV. 2. Clinical osteomyelitis. 3. Diabetes mellitus. 4. History of stroke with decreased ambulation. 5. Smoker. 6. History of MRSA. Wound is stable with no active bleeding. Wound VAC in place at 150 mmHg. Preliminary wound culture positive for Gram positive organism. Antibiotics are Meropenem and Vancomycin. ID is consulted. Will order a Prealbumin for morning. Nutritional supplementation with protein to assist with wound healing. She will follow up at the wound center after she is discharged.
[2020-11-09] MEDS: Rosuvastatin Calcium 5 MG Tablet PO (21:54)
[2020-11-09 22:05] LABS: Bedside Glucose 113 mg/dL (70-110)
[2020-11-10] VITALS (11 sets, daily range): BP systolic 119–135; BP diastolic 62–85; PULSE 72–90; RESP 14–18; TEMP 36.8–37.2; O2SAT 94–98
[2020-11-10] MEDS: oxyCODONE 5 MG Tablet PO ×4 (00:16→14:11)
[2020-11-10] MEDS: Dextrose 5%/0.9% NaCl 1,000 ML 75 ML IV ×2 (05:23→17:18)
[2020-11-10 06:55] LABS: Absolute Lymphocyte Count 1.16 X10^3/uL (0.83-4.51); Basophil# 0.04 X10^3/uL; Basophil% 0.7 % (0-1); Eosinophil# 0.36 X10^3/uL; Hemoglobin 11.3 g/dL (12.0-15.0); Lymphocyte # 1.16 X10^3/ul (4.0); Lymphocyte % 19.2 % (19-41); Mean Corp Hgb Conc 32.3 g/dL (32-36); Mean Corpuscular Hgb 30.7 pg (27.0-32.0); Mean Corpuscular Volume 95.1 fL (81-99); Mean Platelet Vol. 9.2 fl (6.2-12.0); Monocyte# 0.51 X10^3/uL; Monocyte% 8.4 % (0-10); NRBC Flagged by Analyzer 0 % (0-5); Neutrophil # 3.96 X10^3/uL (2.7-7.7); Neutrophil % 65.5 % (47-70); Platelet Count 382 K/mm3 (150-450); RBC Distribution Width CV 13.5 % (11.6-14.6); RBC Distribution Width SD 47.5 fl (35.1-43.9); Red Blood Count 3.68 M/mm3 (4.2-5.4)
[2020-11-10 06:55] LABS: Bedside Glucose 118 mg/dL (70-110)
[2020-11-10 07:52] LABS: Anion Gap 6 (5-15); BUN 11 mg/dL (7-18); BUN/Creat Ratio 45.8 RATIO (10-20); Calcium,Total 8.8 mg/dL (8.5-10.1); Chloride 101 mmol/L (98-107); Creatinine, Serum 0.24 mg/dL (0.55-1.02); EST Glomerular Filtration Rate 301 mL/min (>60); Est Glom Filt Rate - Afr Amer 364 mL/min (>60); Estimated Creatinine Clearance 46.43 ml/min; Glucose 112 mg/dL (74-106); Potassium 3.3 mmol/L (3.5-5.1); Sodium Level 137 mmol/L (136-145)
[2020-11-10 07:57] LABS: Prealbumin 7.2 mg/dL (20.0-40.0)
[2020-11-10] MEDS: Glucerna Shake 120 ML LIQUID PO ×3 (09:46→17:17)
[2020-11-10] MEDS: Aspirin 81 MG TAB.CHEW PO (09:46)
[2020-11-10] MEDS: Losartan Potassium 100 MG Tablet PO (09:48)
[2020-11-10] MEDS: Docusate Sodium 100 MG Capsule PO ×2 (09:50→21:21)
[2020-11-10] MEDS: hydroCHLOROthiazide 12.5mg 12.5 MG PO (09:50)
[2020-11-10] MEDS: Pantoprazole Sodium 40 MG Tablet PO (09:51)
[2020-11-10] MEDS: amLODIPine 10 MG Tablet PO (09:51)
[2020-11-10] MEDS: cycloBENZAPRine HCl 10 MG Tablet PO ×2 (10:02→21:21)
[2020-11-10] MEDS: APIXABAN 5 MG TABLET PO ×2 (11:07→21:22)
[2020-11-10 12:46] LABS: Bedside Glucose 200 mg/dL (70-110)
[2020-11-10] MEDS: Insulin Lispro 100 UNIT/ML INSULN.PEN SC (12:49)
--- NOTE | 2020-11-10 13:12 | PCM.PN.HOSP ---
Patient Problems: Active and Suspected Problems (Last Updated 11/08/20 @ 11:[address] Riki Aguirre MD) Decubitus ulcer (Acute) Subjective: Patient seen and examined. She has no complaints this morning. Review of systems otherwise negative. Labs and vitals reviewed. He has remained hemodynamically stable. Potassium today is 3.3. Vitals/I&O's: Vital Signs Temp Pulse Resp BP Pulse Ox 98.2 F 86 16 129/85 H 96 11/10/20 09:30 11/10/20 09:30 11/10/20 09:30 11/10/20 09:30 11/10/20 09:30 Oxygen Flow Rate (L/min) 2 Oxygen Delivery Method Nasal Cannula Weight: 201 lb 0.985 oz Body Mass Index (BMI) 22.5 Finger Stick Blood Glucose 156 Intake and Output for Last 24 Hours 11/08/20 11/09/20 11/10/20 23:59 23:59 23:59 Intake Total 2157.75 / 2377.75 3212.75 / 3412.75 1932.5 / 1932.5 Output Total 2150 / 2150 1300 / 1700 1300 / 1300 Balance 7.75 / 227.75 1912.75 / 1712.75 632.5 / 632.5 General: Alert, Cooperative - - very hard of hearing HEENT: Atraumatic, PERRLA, EOMI, Normocephalic Oral: Dry Mucosa Neck: Supple, No JVD, Negative Carotid Bruits Lungs: - - no wheezes or crackles. on 2L of oxygen by nasal canula Cardiovascular: Regular rate, Regular Rhythm, Normal S1, Normal S2, No murmurs Abdomen: Bowel Sounds Present, Soft, Non Tender Extremities: No edema, Capillary Refill Less than 3 Seconds Skin: No rashes, No breakdown, - - dressing over sacral decubitus ulcer Musculoskeletal: No Tenderness to Palpation of Joints or Extremities Lymphatic: No Cervical, Supraclavicular, or Inguinal Adenopathy Neurological: Cranial nerves II-XII grossly intact, Neuro grossly intact, Motor Exam 5/5 strength throughout Psych/Mental Status: Normal Affect, Appropriate, Alert and oriented to time, place, person, mood and affect Microbiology Past 72 Hours 11/08/20 11:00 Tissue - Sacral Gram Stain - Final 11/08/20 11:00 Tissue - Sacral Wound Culture - Preliminary GPC Poss Enterococcus sp Gram positive lianne Gram negative lianne 11/07/20 13:00 Tissue - Sacral Gram Stain - Final 11/07/20 13:00 Tissue - Sacral Tissue Culture - Preliminary Escherichia coli Morganella morganii sp morgani Corynebacterium striatum Corynebacterium amycolatum Enterococcus avium GPC Poss Enterococcus sp 11/07/20 13:00 Tissue - Sacral Anaerobic Culture - Preliminary Checking for anaerobes, further studies to follow. 11/06/20 20:18 Ulcer, Decubitus - Buttock Gram Stain - Final 11/06/20 20:18 Ulcer, Decubitus - Buttock Wound Culture - Final Morganella morganii sp morgani Escherichia coli Corynebacterium striatum 11/06/20 20:18 Ulcer, Decubitus - Buttock Anaerobic Culture - Preliminary Checking for anaerobes, further studies to follow. 11/08/20 11:00 Tissue - Bone Gram Stain - Final 11/08/20 11:00 Tissue - Bone Wound Culture - Preliminary No growth-Final to follow 11/08/20 11:00 Tissue - Bone Anaerobic Culture - Preliminary No growth in 48 hours. 11/06/20 19:42 Blood Culture (Wb) - Right Wrist Blood Culture - Preliminary No growth in 48 hours. 11/06/20 19:40 Blood Culture (Wb) - Right Hand Blood Culture - Preliminary No growth in 48 hours. 11/07/20 14:20 Mucosa - Nasopharyngeal SARS-CoV-2 Antigen (Rapid) - Final Laboratory Results 11/09/20 21:59: POC Glucose 113 H 11/10/20 05:55: WBC 6.0, RBC 3.68 L, Hgb 11.3 L, Hct 35.0 L, MCV 95.1, MCH 30.7, MCHC 32.3, RDW Std Deviation 47.5 H, RDW Coeff of Mirza 13.5, Plt Count 382, MPV 9.2, Immature Gran % (Auto) 0.200, Neut % (Auto) 65.5, Lymph % (Auto) 19.2, [place] % (Auto) 8.4, Eos % (Auto) 6.0 H, Baso % (Auto) 0.7, Absolute Neuts (auto) 4.0, Absolute Lymphs (auto) 1.16, Nucleated RBC % 0 11/10/20 05:55: Sodium 137, Potassium 3.3 L, Chloride 101, Carbon Dioxide 30.0, Anion Gap 6, BUN 11, Creatinine 0.24 L, Estim Creat Clear Calc 46.43, Est GFR (MDRD) Af Amer 364, Est GFR (MDRD) Non-Af 301, BUN/Creatinine Ratio 45.8 H, Glucose 112 H, Calcium 8.8 11/10/20 05:55: Prealbumin 7.2 L 11/10/20 06:31: POC Glucose 118 H 11/10/20 12:39: POC Glucose 200 H Diagnostic Data Shoulder X-Ray 11/07/20 08:13 IMPRESSION: Healing fracture of the surgical neck of the proximal left humerus. Residual deformity of the humerus persists. Electronically Signed: Erick Damico MD at 8:53 EST , Service support , Current Medications Acetaminophen (Acetaminophen 325 Mg Tablet) 650 mg PO Q6H PRN PRN PRN Reason: Pain Score 1-10/Temp > 100.7 F Al Hydroxide/Mg Hydroxide (Mag Hydrox/Al Hydrox/Simeth 30 Ml Udc) 30 ml PO Q6H PRN PRN PRN Reason: Gastric Burning Albuterol Sulfate (Albuterol 2.5 Mg/3 Ml Vial.Neb.) 2.5 mg INHALATION Q2H PRN PRN PRN Reason: Dyspnea, wheezing Amlodipine Besylate (Amlodipine 10 Mg Tablet) 10 mg PO DAILY [facility] Last Admin: 11/10/20 09:51 Dose: 10 mg Documented by: Apixaban (Apixaban 5 Mg Tablet) 5 mg PO BID [facility] Last Admin: 11/10/20 11:07 Dose: 5 mg Documented by: Aspirin (Aspirin 81 Mg Tab.Chew) 81 mg PO DAILY@0800 [facility] Last Admin: 11/10/20 09:46 Dose: 81 mg Documented by: Cyclobenzaprine HCl (Cyclobenzaprine Hcl 10 Mg Tablet) 10 mg PO BID [facility] Last Admin: 11/10/20 10:02 Dose: 10 mg Documented by: Docusate Sodium (Docusate Sodium 100 Mg Capsule) 100 mg PO BID [facility] Last Admin: 11/10/20 09:50 Dose: 100 mg Documented by: Guaifenesin (Guaifenesin 10 Ml Udc (200mg/10ml)) 20 ml PO Q4H PRN PRN PRN Reason: COUGH Hydralazine HCl (Hydralazine 20 Mg/Ml Vial) 10 mg IV Q4H PRN PRN PRN Reason: SBP > 160 Hydrochlorothiazide (Hydrochlorothiazide 12.5mg) 12.5 mg PO DAILY [facility] Last Admin: 11/10/20 09:50 Dose: 12.5 mg Documented by: Meropenem 1 gm/ Sodium (Chloride) 120 mls @ 33 mls/hr IV Q8 [facility] Last Infusion: 11/10/20 10:15 Dose: Infused Documented by: Dextrose/Sodium Chloride (Dextrose 5%/0.9% Nacl) 1,000 mls @ 75 mls/hr IV .[id number] [facility] Last Admin: 11/10/20 05:23 Dose: 75 mls/hr Documented by: Sodium Chloride () 250 mls @ 15 mls/hr IV .[id number] PRN PRN Reason: Saline Flush Last Infusion: 11/10/20 11:15 Dose: 0 mls/hr Documented by: Sodium Chloride () 250 mls @ 15 mls/hr IV .[id number] PRN PRN Reason: Additional IVPB Infusion Vancomycin IV Pharmacy to Dose (1 ea/ Sodium Chloride) 500 mls @ 250 mls/hr IV X1 PRN; Protocol PRN Reason: Rx to Dose Vancomycin HCl 1,250 mg/ (Sodium Chloride) 275 mls @ 167 mls/hr IV Q12H [facility] Last Infusion: 11/10/20 03:31 Dose: Infused Documented by: Insulin Human Lispro (Insulin Lispro 100 Unit/Ml Insuln.Pen) 0 unit SC ACHS [facility]; Protocol Last Admin: 11/10/20 12:49 Dose: 2 u Documented by: Lorazepam (Lorazepam 2 Mg/Ml Syringe) 0.5 mg IV Q6H PRN PRN PRN Reason: severe muscle cramps Losartan Potassium (Losartan Potassium 100 Mg Tablet) 100 mg PO DAILY [facility] Last Admin: 11/10/20 09:48 Dose: 100 mg Documented by: Magnesium Hydroxide (Magnesium Hydroxide 30 Ml Udc) 30 ml PO DAILY PRN PRN PRN Reason: Constipation Melatonin (Melatonin 3 Mg Tablet) 3 mg PO QHS PRN PRN PRN Reason: INSOMNIA Morphine Sulfate (Morphine 2 Mg/Ml Syringe) 2 mg IV Q3H PRN PRN PRN Reason: Pain Score 6-10 Last Admin: 11/09/20 11:10 Dose: 2 mg Documented by: Nicotine (Nicotine 21 Mg Patch) 21 mg TD DAILY [facility] Last Admin: 11/10/20 10:00 Dose: Not Given Documented by: Nutritional Formula (Lactose Free) (Glucerna Shake 120 Ml Liquid) 120 ml PO TIDCM [facility] Last Admin: 11/10/20 11:08 Dose: 120 ml Documented by: Ondansetron HCl (Ondansetron 4 Mg/2 Ml Vial) 4 mg IV Q8H PRN PRN PRN Reason: NAUSEA/VOMITING Oxycodone HCl (Oxycodone 5 Mg Tablet) 5 mg PO Q4H PRN PRN PRN Reason: Pain Score 4-5 Last Admin: 11/10/20 09:46 Dose: 5 mg Documented by: Pantoprazole Sodium (Pantoprazole Sodium 40 Mg Tablet) 40 mg PO DAILY [facility] Last Admin: 11/10/20 09:51 Dose: 40 mg Documented by: Prochlorperazine Edisylate (Prochlorperazine 10 Mg/2 Ml Vial) 5 mg IV Q4H PRN PRN PRN Reason: Breakthrough nausea/vomiting Psyllium Hydrophilic Mucilloid (Psyllium 1 Packet) 1 packet PO DAILY PRN PRN PRN Reason: Constipation Rosuvastatin Calcium (Rosuvastatin Calcium 5 Mg Tablet) 5 mg PO QHS [facility] Last Admin: 11/09/20 21:54 Dose: 5 mg Documented by: Sodium Chloride (0.9% Saline Lock 10 Ml Syringe) 10 - 40 ml IV UD PRN PRN Reason: SALINE FLUSH Last Admin: 11/07/20 01:34 Dose: 10 ml Documented by: Sodium Chloride (0.9% Saline Lock 10 Ml Syringe) 10 - 40 ml IV UD PRN PRN Reason: SALINE FLUSH Throat Lozenges (Benzocaine/Menthol 1 Lozenge) 1 lozenge MUCOUS MEM Q2H PRN PRN PRN Reason: SORE THROAT STROKE Vital Signs/Narrative: Vital Signs Temp Pulse Resp BP Pulse Ox 11/10/20 09:30 98.2 F 86 16 129/85 H 96 Medical Necessity - Tobacco Use Smoking Status: Current every day smoker Tobacco Use: Cigarettes Assessment/Plan All Active Problems (Last Updated 11/08/20 @ 11:[address] Riki Aguirre MD) Ischemia of right lower extremity (Acute) Injury of right common femoral artery (Acute) Postoperative wound dehiscence (Acute) COPD exacerbation (Acute) acute delerium (Acute) Decubitus ulcer (Acute) Pressure ulcer of sacral region, stage 4 (Acute) Skin necrosis (Acute) Urinary retention (Acute) Urge incontinence (Acute) Nocturia (Acute) Intertrochanteric fracture of left hip (Acute) Left humeral fracture (Resolved) #Infected decubitus ulcer of the coccyx wound culture done on 10/23/2020 grew E coli and gram negative rods, possibly Pseudomonas and Morganella plastic surgery on board. On IV ciprofloxacin Debridement done by plastic surgery. Today is POD 2 on IV meropenem #PAD and CAD: on aspirin, plavix on hold on statin and losartan. Had stents placed in left iliac and left superior femoral arteries in 2019 #?new onset paroxysmal afib And went to [facility]oyer in the operating room. EKG done subsequently showed EF of 55% with no evidence of diastolic dysfunction and normal right atrial size. Near the junction of the right atrium and IVC close to the base of the tricuspid valve there was a mobile echodensity that could be thrombus, vegetation or mass. Cardiology consulted on account of this abnormal echo finding; cardiology recommends starting on an oral anticoagulant. patient started on eliquis 5mg o.a of new echo findings patient has remained in sinus rhythm since. #hypertension: on Norvasc, hydrochlorothiazide and losartan. IV hydralazine as needed #Right healing proximal humeral fracture shoulder xray done showed healing fracture of the surgical neck of hte proximal left humerus, with residual deformity of the humerus persisting. I did discuss with Dr Kapoor, who recommended that she follow up with orthopedic surgery on outpatient basis. #Hyperlipidemia: On statin #Chronic hypoxic respiratory failure due to COPD: On home oxygen. Breathing treatments with bronchodilators. #Nicotine dependence: counseled to quit. Nicotine patch 21mg daily DVT prophylaxis:lovenox dc'd. Started on eliquis o/a of echo findings. Disposition: will need placement. Case management on board. Inpatient E&M: [id number] [facility] L2
[2020-11-10 16:46] LABS: Bedside Glucose 100 mg/dL (70-110)
[2020-11-10] MEDS: Morphine 2 MG/ML Syringe IV (17:18)
--- NOTE | 2020-11-10 17:36 | PN.SURG_ITS ---
Patient Problems: Active and Suspected Problems (Last Updated 11/08/20 @ 11:[address] Riki Aguirre MD) Decubitus ulcer (Acute) Subjective: Postop #2 Patient complains of wound pain and spasm. - Physical Exam Vitals/I&O's: Vital Signs Temp Pulse Resp BP Pulse Ox 98.9 F 81 18 119/67 96 11/10/20 15:30 11/10/20 15:30 11/10/20 15:30 11/10/20 15:30 11/10/20 15:30 Oxygen Flow Rate (L/min) 2 Oxygen Delivery Method Room Air Weight: 201 lb 0.985 oz Body Mass Index (BMI) 22.5 Finger Stick Blood Glucose 156 Intake and Output for Last 24 Hours 11/08/20 11/09/20 11/10/20 23:59 23:59 23:59 Intake Total 2157.75 / 2377.75 3212.75 / 3412.75 3461.25 / 3461.25 Output Total 2150 / 2150 1300 / 1700 1800 / 1800 Balance 7.75 / 227.75 1912.75 / 1712.75 1661.25 / 1661.25 General: Alert, Oriented x3 HEENT: PERRLA, EOMI Oral: Moist Mucosa Neck: Supple, No JVD Abdomen: Soft, Non-Distended Skin: Ulcer/ Wound - sacral wound is stable. VAC in place. Minimal drainage in the canister. Neurological: Cranial nerves II-XII grossly intact Psych/Mental Status: Normal Affect, Appropriate Microbiology Past 72 Hours 11/08/20 11:00 Tissue - Sacral Gram Stain - Final 11/08/20 11:00 Tissue - Sacral Wound Culture - Preliminary GPC Poss Enterococcus sp Gram positive lianne Gram negative lianne 11/07/20 13:00 Tissue - Sacral Gram Stain - Final 11/07/20 13:00 Tissue - Sacral Tissue Culture - Preliminary Escherichia coli Morganella morganii sp morgani Corynebacterium striatum Corynebacterium amycolatum Enterococcus avium GPC Poss Enterococcus sp 11/07/20 13:00 Tissue - Sacral Anaerobic Culture - Preliminary Checking for anaerobes, further studies to follow. 11/06/20 20:18 Ulcer, Decubitus - Buttock Gram Stain - Final 11/06/20 20:18 Ulcer, Decubitus - Buttock Wound Culture - Final Morganella morganii sp morgani Escherichia coli Corynebacterium striatum 11/06/20 20:18 Ulcer, Decubitus - Buttock Anaerobic Culture - Preliminary Checking for anaerobes, further studies to follow. 11/08/20 11:00 Tissue - Bone Gram Stain - Final 11/08/20 11:00 Tissue - Bone Wound Culture - Preliminary No growth-Final to follow 11/08/20 11:00 Tissue - Bone Anaerobic Culture - Preliminary No growth in 48 hours. 11/06/20 19:42 Blood Culture (Wb) - Right Wrist Blood Culture - Preliminary No growth in 48 hours. 11/06/20 19:40 Blood Culture (Wb) - Right Hand Blood Culture - Preliminary No growth in 48 hours. 11/07/20 14:20 Mucosa - Nasopharyngeal SARS-CoV-2 Antigen (Rapid) - Final Laboratory Results 11/09/20 21:59: POC Glucose 113 H 11/10/20 05:55: WBC 6.0, RBC 3.68 L, Hgb 11.3 L, Hct 35.0 L, MCV 95.1, MCH 30.7, MCHC 32.3, RDW Std Deviation 47.5 H, RDW Coeff of Mirza 13.5, Plt Count 382, MPV 9.2, Immature Gran % (Auto) 0.200, Neut % (Auto) 65.5, Lymph % (Auto) 19.2, [place] % (Auto) 8.4, Eos % (Auto) 6.0 H, Baso % (Auto) 0.7, Absolute Neuts (auto) 4.0, Absolute Lymphs (auto) 1.16, Nucleated RBC % 0 11/10/20 05:55: Sodium 137, Potassium 3.3 L, Chloride 101, Carbon Dioxide 30.0, Anion Gap 6, BUN 11, Creatinine 0.24 L, Estim Creat Clear Calc 46.43, Est GFR (MDRD) Af Amer 364, Est GFR (MDRD) Non-Af 301, BUN/Creatinine Ratio 45.8 H, Glucose 112 H, Calcium 8.8 11/10/20 05:55: Prealbumin 7.2 L 11/10/20 06:31: POC Glucose 118 H 11/10/20 12:39: POC Glucose 200 H 11/10/20 16:19: POC Glucose 100 Current Medications Acetaminophen (Acetaminophen 325 Mg Tablet) 650 mg PO Q6H PRN PRN PRN Reason: Pain Score 1-10/Temp > 100.7 F Al Hydroxide/Mg Hydroxide (Mag Hydrox/Al Hydrox/Simeth 30 Ml Udc) 30 ml PO Q6H PRN PRN PRN Reason: Gastric Burning Albuterol Sulfate (Albuterol 2.5 Mg/3 Ml Vial.Neb.) 2.5 mg INHALATION Q2H PRN PRN PRN Reason: Dyspnea, wheezing Amlodipine Besylate (Amlodipine 10 Mg Tablet) 10 mg PO DAILY [facility] Last Admin: 11/10/20 09:51 Dose: 10 mg Documented by: Apixaban (Apixaban 5 Mg Tablet) 5 mg PO BID [facility] Last Admin: 11/10/20 11:07 Dose: 5 mg Documented by: Aspirin (Aspirin 81 Mg Tab.Chew) 81 mg PO DAILY@0800 [facility] Last Admin: 11/10/20 09:46 Dose: 81 mg Documented by: Cyclobenzaprine HCl (Cyclobenzaprine Hcl 10 Mg Tablet) 10 mg PO BID [facility] Last Admin: 11/10/20 10:02 Dose: 10 mg Documented by: Docusate Sodium (Docusate Sodium 100 Mg Capsule) 100 mg PO BID [facility] Last Admin: 11/10/20 09:50 Dose: 100 mg Documented by: Guaifenesin (Guaifenesin 10 Ml Udc (200mg/10ml)) 20 ml PO Q4H PRN PRN PRN Reason: COUGH Hydralazine HCl (Hydralazine 20 Mg/Ml Vial) 10 mg IV Q4H PRN PRN PRN Reason: SBP > 160 Hydrochlorothiazide (Hydrochlorothiazide 12.5mg) 12.5 mg PO DAILY [facility] Last Admin: 11/10/20 09:50 Dose: 12.5 mg Documented by: Meropenem 1 gm/ Sodium (Chloride) 120 mls @ 33 mls/hr IV Q8 [facility] Last Infusion: 11/10/20 16:07 Dose: Infused Documented by: Dextrose/Sodium Chloride (Dextrose 5%/0.9% Nacl) 1,000 mls @ 75 mls/hr IV .[id number] [facility] Last Admin: 11/10/20 17:18 Dose: 75 mls/hr Documented by: Sodium Chloride () 250 mls @ 15 mls/hr IV .[id number] PRN PRN Reason: Saline Flush Last Infusion: 11/10/20 14:13 Dose: 15 mls/hr Documented by: Sodium Chloride () 250 mls @ 15 mls/hr IV .[id number] PRN PRN Reason: Additional IVPB Infusion Vancomycin IV Pharmacy to Dose (1 ea/ Sodium Chloride) 500 mls @ 250 mls/hr IV X1 PRN; Protocol PRN Reason: Rx to Dose Vancomycin HCl 1,250 mg/ (Sodium Chloride) 275 mls @ 167 mls/hr IV Q12H [facility] Last Infusion: 11/10/20 16:08 Dose: Infused Documented by: Insulin Human Lispro (Insulin Lispro 100 Unit/Ml Insuln.Pen) 0 unit SC ACHS [facility]; Protocol Last Admin: 11/10/20 16:33 Dose: Not Given Documented by: Lorazepam (Lorazepam 2 Mg/Ml Syringe) 0.5 mg IV Q6H PRN PRN PRN Reason: severe muscle cramps Losartan Potassium (Losartan Potassium 100 Mg Tablet) 100 mg PO DAILY [facility] Last Admin: 11/10/20 09:48 Dose: 100 mg Documented by: Magnesium Hydroxide (Magnesium Hydroxide 30 Ml Udc) 30 ml PO DAILY PRN PRN PRN Reason: Constipation Melatonin (Melatonin 3 Mg Tablet) 3 mg PO QHS PRN PRN PRN Reason: INSOMNIA Morphine Sulfate (Morphine 2 Mg/Ml Syringe) 2 mg IV Q3H PRN PRN PRN Reason: Pain Score 6-10 Last Admin: 11/10/20 17:18 Dose: 2 mg Documented by: Nicotine (Nicotine 21 Mg Patch) 21 mg TD DAILY [facility] Last Admin: 11/10/20 10:00 Dose: Not Given Documented by: Nutritional Formula (Lactose Free) (Glucerna Shake 120 Ml Liquid) 120 ml PO TIDCM [facility] Last Admin: 11/10/20 17:17 Dose: 120 ml Documented by: Ondansetron HCl (Ondansetron 4 Mg/2 Ml Vial) 4 mg IV Q8H PRN PRN PRN Reason: NAUSEA/VOMITING Oxycodone HCl (Oxycodone 5 Mg Tablet) 5 mg PO Q4H PRN PRN PRN Reason: Pain Score 4-5 Last Admin: 11/10/20 14:11 Dose: 5 mg Documented by: Pantoprazole Sodium (Pantoprazole Sodium 40 Mg Tablet) 40 mg PO DAILY [facility] Last Admin: 11/10/20 09:51 Dose: 40 mg Documented by: Prochlorperazine Edisylate (Prochlorperazine 10 Mg/2 Ml Vial) 5 mg IV Q4H PRN PRN PRN Reason: Breakthrough nausea/vomiting Psyllium Hydrophilic Mucilloid (Psyllium 1 Packet) 1 packet PO DAILY PRN PRN PRN Reason: Constipation Rosuvastatin Calcium (Rosuvastatin Calcium 5 Mg Tablet) 5 mg PO QHS [facility] Last Admin: 11/09/20 21:54 Dose: 5 mg Documented by: Sodium Chloride (0.9% Saline Lock 10 Ml Syringe) 10 - 40 ml IV UD PRN PRN Reason: SALINE FLUSH Last Admin: 11/07/20 01:34 Dose: 10 ml Documented by: Sodium Chloride (0.9% Saline Lock 10 Ml Syringe) 10 - 40 ml IV UD PRN PRN Reason: SALINE FLUSH Throat Lozenges (Benzocaine/Menthol 1 Lozenge) 1 lozenge MUCOUS MEM Q2H PRN PRN PRN Reason: SORE THROAT Medical Necessity - Tobacco Use Smoking Status: Current every day smoker Tobacco Use: Cigarettes Assessment/Plan All Active Problems (Last Updated 11/08/20 @ 11:[address] Riki Aguirre MD) Ischemia of right lower extremity (Acute) Injury of right common femoral artery (Acute) Postoperative wound dehiscence (Acute) COPD exacerbation (Acute) acute delerium (Acute) Decubitus ulcer (Acute) Pressure ulcer of sacral region, stage 4 (Acute) Skin necrosis (Acute) Urinary retention (Acute) Urge incontinence (Acute) Nocturia (Acute) Intertrochanteric fracture of left hip (Acute) Left humeral fracture (Resolved) 1. Necrotic infected sacral pressure sore, Stage IV. 2. Clinical osteomyelitis. 3. Diabetes mellitus. 4. History of stroke with decreased ambulation. 5. Smoker. 6. History of MRSA. VAC in place. Minimal drainage in the canister. Wound cultures show Morganella morganii, E. coli, Corynebacterium, and Enterococcus. She is currently on Vancomycin and Meropenem. Prealbumin was 7.2. Encourage nutritional supplementation with protein to help the healing process. HgbA1c was 5.4. ECF evaluation in process. She was having inadequate pain relief with Morphine 2 mg. That was increased today. Also added Valium for her muscle spasm. Encouraged patient to stop smoking as it may have deleterious effects on wound healing. After [facility] from the [facility], she can followup [facility].
--- NOTE | 2020-11-10 19:23 | NURSING ---
Bedside report given to Nightshift RN. Questions answered. Patient resting with eyes closed, comfortable at this time. IV fluids and site assessed. Patient denies needs.
[2020-11-10] MEDS: diazePAM 5 MG Tablet PO (21:20)
[2020-11-10] MEDS: Rosuvastatin Calcium 5 MG Tablet PO (21:21)
[2020-11-10 21:41] LABS: Bedside Glucose 135 mg/dL (70-110)
[2020-11-11] VITALS (9 sets, daily range): BP systolic 103–146; BP diastolic 60–69; PULSE 77–94; RESP 14–16; TEMP 36.4–37; O2SAT 93–97
[2020-11-11 02:44] LABS: Absolute Lymphocyte Count 1.72 X10^3/uL (0.83-4.51); Basophil# 0.04 X10^3/uL; Basophil% 0.6 % (0-1); Eosinophil# 0.38 X10^3/uL; Eosinophils% 5.7 % (0-5); Hematocrit 33.8 % (37-47); Hemoglobin 11.3 g/dL (12.0-15.0); Lymphocyte # 1.72 X10^3/ul (4.0); Lymphocyte % 25.6 % (19-41); Mean Corp Hgb Conc 33.4 g/dL (32-36); Mean Corpuscular Hgb 31.2 pg (27.0-32.0); Mean Corpuscular Volume 93.4 fL (81-99); Mean Platelet Vol. 9.3 fl (6.2-12.0); Monocyte# 0.52 X10^3/uL; Monocyte% 7.7 % (0-10); NRBC Flagged by Analyzer 0 % (0-5); Neutrophil # 4.04 X10^3/uL (2.7-7.7); Neutrophil % 60.1 % (47-70); Platelet Count 424 K/mm3 (150-450); RBC Distribution Width CV 13.4 % (11.6-14.6); RBC Distribution Width SD 45.7 fl (35.1-43.9); Red Blood Count 3.62 M/mm3 (4.2-5.4); White Blood Count 6.7 K/mm3 (4.4-11.0)
[2020-11-11 02:51] LABS: Anion Gap 5 (5-15); BUN 19 mg/dL (7-18); BUN/Creat Ratio 76.6 RATIO (10-20); Calcium,Total 8.7 mg/dL (8.5-10.1); Chloride 100 mmol/L (98-107); Creatinine, Serum 0.25 mg/dL (0.55-1.02); EST Glomerular Filtration Rate 290 mL/min (>60); Est Glom Filt Rate - Afr Amer 351 mL/min (>60); Estimated Creatinine Clearance 46.43 ml/min; Glucose 126 mg/dL (74-106); Potassium 3.7 mmol/L (3.5-5.1); Sodium Level 137 mmol/L (136-145)
[2020-11-11 02:53] LABS: Vancomycin, Trough Level 18.9 ug/mL (5.0-15.0)
--- NOTE | 2020-11-11 04:33 | PCM.RX.CS ---
Consult Pharmacy has been consulted to manage selected antiobiotic: Vancomycin Type of Consult: Follow-up Labs: Sodium 137 mmol/L (136-145) 11/11/20 01:44 Potassium 3.7 mmol/L (3.5-5.1) 11/11/20 01:44 Chloride 100 mmol/L (98-107) 11/11/20 01:44 Carbon Dioxide 32.0 mmol/L (21.0-32.0) 11/11/20 01:44 Anion Gap 5 (5-15) 11/11/20 01:44 BUN 19 mg/dL (7-18) H 11/11/20 01:44 Creatinine 0.25 mg/dL (0.55-1.02) L 11/11/20 01:44 Est GFR (MDRD) Af Amer 351 mL/min (>60) 11/11/20 01:44 Est GFR (MDRD) Non-Af 290 mL/min (>60) 11/11/20 01:44 BUN/Creatinine Ratio 76.6 RATIO (10-20) H 11/11/20 01:44 Glucose 126 mg/dL (74-106) H 11/11/20 01:44 Vancomycin Trough 18.9 ug/mL (5.0-15.0) H 11/11/20 01:44 Microbiology: Microbiology 11/08/20 11:00 Tissue - Sacral Gram Stain - Final 11/08/20 11:00 Tissue - Sacral Wound Culture - Preliminary GPC Poss Enterococcus sp Gram positive lianne Gram negative lianne 11/07/20 13:00 Tissue - Sacral Gram Stain - Final 11/07/20 13:00 Tissue - Sacral Tissue Culture - Preliminary Escherichia coli Morganella morganii sp morgani Corynebacterium striatum Corynebacterium amycolatum Enterococcus avium GPC Poss Enterococcus sp 11/07/20 13:00 Tissue - Sacral Anaerobic Culture - Preliminary Checking for anaerobes, further studies to follow. 11/06/20 20:18 Ulcer, Decubitus - Buttock Gram Stain - Final 11/06/20 20:18 Ulcer, Decubitus - Buttock Wound Culture - Final Morganella morganii sp morgani Escherichia coli Corynebacterium striatum 11/06/20 20:18 Ulcer, Decubitus - Buttock Anaerobic Culture - Preliminary Checking for anaerobes, further studies to follow. 11/08/20 11:00 Tissue - Bone Gram Stain - Final 11/08/20 11:00 Tissue - Bone Wound Culture - Preliminary No growth-Final to follow 11/08/20 11:00 Tissue - Bone Anaerobic Culture - Preliminary No growth in 48 hours. 11/06/20 19:42 Blood Culture (Wb) - Right Wrist Blood Culture - Preliminary No growth in 48 hours. 11/06/20 19:40 Blood Culture (Wb) - Right Hand Blood Culture - Preliminary No growth in 48 hours. 11/07/20 14:20 Mucosa - Nasopharyngeal SARS-CoV-2 Antigen (Rapid) - Final Goal Trough: 15-20 mcg/mL Pharmacy Plan for Drug Dosing: Pharmacy Service will continue to monitor and adjust dosing as required. TROUGH 18.9 NO CHANGES REDRAW TROUGH IN 4 DAYS Follow-Up Labs: Trough Vancomycin Labs to be done on [date and time ordered]: 11/15 @ [id number]
[2020-11-11] MEDS: Dextrose 5%/0.9% NaCl 1,000 ML 75 ML IV ×2 (06:04→20:47)
[2020-11-11 06:55] LABS: Bedside Glucose 115 mg/dL (70-110)
[2020-11-11] MEDS: amLODIPine 10 MG Tablet PO (09:39)
[2020-11-11] MEDS: Losartan Potassium 100 MG Tablet PO (09:39)
[2020-11-11] MEDS: Docusate Sodium 100 MG Capsule PO ×2 (09:39→20:46)
[2020-11-11] MEDS: APIXABAN 5 MG TABLET PO ×3 (09:39→20:46)
[2020-11-11] MEDS: hydroCHLOROthiazide 12.5mg 12.5 MG PO (09:39)
[2020-11-11] MEDS: Aspirin 81 MG TAB.CHEW PO (09:40)
[2020-11-11] MEDS: Pantoprazole Sodium 40 MG Tablet PO (09:40)
[2020-11-11] MEDS: cycloBENZAPRine HCl 10 MG Tablet PO ×2 (09:40→20:46)
[2020-11-11] MEDS: Insulin Lispro 100 UNIT/ML INSULN.PEN SC ×3 (11:11→20:46)
[2020-11-11] MEDS: Glucerna Shake 120 ML LIQUID PO ×2 (11:11→17:17)
[2020-11-11 11:21] LABS: Bedside Glucose 170 mg/dL (70-110)
--- NOTE | 2020-11-11 12:44 | PN_ITS ---
Patient Problems: Active and Suspected Problems (Last Updated 11/08/20 @ 11:[address] Riki Aguirre MD) Decubitus ulcer (Acute) Subjective: Patient seen and examined. She Says She Wanted to Be Discharged Home and did not want to stay in the hospital anymore. She had no other complaints though. I explained to her that in light of her having the wound VAC in place and being quite debilitated, she needed placement in a rehab facility for a short time until she can get her strength back. She has remained hemodynamically stable. Vitals/I&O's: Vital Signs Temp Pulse Resp BP Pulse Ox 98.3 F 83 14 103/65 97 11/11/20 09:31 11/11/20 09:31 11/11/20 09:31 11/11/20 09:31 11/11/20 09:31 Oxygen Flow Rate (L/min) 2 Oxygen Delivery Method Nasal Cannula Weight: 199 lb 8.293 oz Body Mass Index (BMI) 22.5 Finger Stick Blood Glucose 156 Intake and Output for Last 24 Hours 11/09/20 11/10/20 11/11/20 23:59 23:59 23:59 Intake Total 3212.75 / 3412.75 3861.25 / 3981.25 1986.0 / 1986.0 Output Total 1300 / 1700 1800 / 2500 2350 / 2350 Balance 1912.75 / 1712.75 2061.25 / 1481.25 -364.0 / -364.0 General: Alert, Cooperative - - very hard of hearing HEENT: Atraumatic, PERRLA, EOMI, Normocephalic Oral: Dry Mucosa Neck: Supple, No JVD, Negative Carotid Bruits Lungs: - - no wheezes or crackles. on 2L of oxygen by nasal canula Cardiovascular: Regular rate, Regular Rhythm, Normal S1, Normal S2, No murmurs Abdomen: Bowel Sounds Present, Soft, Non Tender Extremities: No edema, Capillary Refill Less than 3 Seconds Skin: No rashes, No breakdown, - - dressing over sacral decubitus ulcer. wound vac in place Musculoskeletal: No Tenderness to Palpation of Joints or Extremities Lymphatic: No Cervical, Supraclavicular, or Inguinal Adenopathy Neurological: Cranial nerves II-XII grossly intact, Neuro grossly intact, Motor Exam 5/5 strength throughout Psych/Mental Status: Normal Affect, Appropriate, Alert and oriented to time, place, person, mood and affect Microbiology Past 72 Hours 11/06/20 20:18 Ulcer, Decubitus - Buttock Gram Stain - Final 11/06/20 20:18 Ulcer, Decubitus - Buttock Wound Culture - Final Morganella morganii sp morgani Escherichia coli Corynebacterium striatum 11/06/20 20:18 Ulcer, Decubitus - Buttock Anaerobic Culture - Preliminary Anaerobic cocci Gram negative lianne 11/07/20 13:00 Tissue - Sacral Gram Stain - Final 11/07/20 13:00 Tissue - Sacral Tissue Culture - Final Escherichia coli Morganella morganii sp morgani Corynebacterium striatum Corynebacterium amycolatum Enterococcus avium Enterococcus faecalis 11/07/20 13:00 Tissue - Sacral Anaerobic Culture - Preliminary Anaerobic cocci Gram negative lianne 11/08/20 11:00 Tissue - Bone Gram Stain - Final 11/08/20 11:00 Tissue - Bone Wound Culture - Final No growth aerobically. 11/08/20 11:00 Tissue - Bone Anaerobic Culture - Preliminary No growth in 48 hours. 11/08/20 11:00 Tissue - Sacral Gram Stain - Final 11/08/20 11:00 Tissue - Sacral Wound Culture - Final Enterococcus avium Corynebacterium striatum Morganella morganii sp morgani 11/06/20 19:42 Blood Culture (Wb) - Right Wrist Blood Culture - Preliminary No growth in 48 hours. 11/06/20 19:40 Blood Culture (Wb) - Right Hand Blood Culture - Preliminary No growth in 48 hours. Laboratory Results 11/10/20 12:39: POC Glucose 200 H 11/10/20 16:19: POC Glucose 100 11/10/20 21:18: POC Glucose 135 H 11/11/20 01:44: Vancomycin Trough 18.9 H 11/11/20 01:44: WBC 6.7, RBC 3.62 L, Hgb 11.3 L, Hct 33.8 L, MCV 93.4, MCH 31.2, MCHC 33.4, RDW Std Deviation 45.7 H, RDW Coeff of Mirza 13.4, Plt Count 424, MPV 9.3, Immature Gran % (Auto) 0.300, Neut % (Auto) 60.1, Lymph % (Auto) 25.6, [place] % (Auto) 7.7, Eos % (Auto) 5.7 H, Baso % (Auto) 0.6, Absolute Neuts (auto) 4.0, Absolute Lymphs (auto) 1.72, Nucleated RBC % 0 11/11/20 01:44: Sodium 137, Potassium 3.7, Chloride 100, Carbon Dioxide 32.0, Anion Gap 5, BUN 19 H, Creatinine 0.25 L, Estim Creat Clear Calc 46.43, Est GFR (MDRD) Af Amer 351, Est GFR (MDRD) Non-Af 290, BUN/Creatinine Ratio 76.6 H, Glucose 126 H, Calcium 8.7 11/11/20 06:33: POC Glucose 115 H 11/11/20 11:10: POC Glucose 170 H Current Medications Acetaminophen (Acetaminophen 325 Mg Tablet) 650 mg PO Q6H PRN PRN PRN Reason: Pain Score 1-10/Temp > 100.7 F Al Hydroxide/Mg Hydroxide (Mag Hydrox/Al Hydrox/Simeth 30 Ml Udc) 30 ml PO Q6H PRN PRN PRN Reason: Gastric Burning Albuterol Sulfate (Albuterol 2.5 Mg/3 Ml Vial.Neb.) 2.5 mg INHALATION Q2H PRN PRN PRN Reason: Dyspnea, wheezing Amlodipine Besylate (Amlodipine 10 Mg Tablet) 10 mg PO DAILY [facility] Last Admin: 11/11/20 09:39 Dose: 10 mg Documented by: Apixaban (Apixaban 5 Mg Tablet) 5 mg PO BID [facility] Last Admin: 11/11/20 09:39 Dose: 5 mg Documented by: Aspirin (Aspirin 81 Mg Tab.Chew) 81 mg PO DAILY@0800 [facility] Last Admin: 11/11/20 09:40 Dose: 81 mg Documented by: Cyclobenzaprine HCl (Cyclobenzaprine Hcl 10 Mg Tablet) 10 mg PO BID [facility] Last Admin: 11/11/20 09:40 Dose: 10 mg Documented by: Diazepam (Diazepam 5 Mg Tablet) 5 mg PO 4X/DAY PRN PRN PRN Reason: SPASMS Last Admin: 11/10/20 21:20 Dose: 5 mg Documented by: Docusate Sodium (Docusate Sodium 100 Mg Capsule) 100 mg PO BID [facility] Last Admin: 11/11/20 09:39 Dose: 100 mg Documented by: Guaifenesin (Guaifenesin 10 Ml Udc (200mg/10ml)) 20 ml PO Q4H PRN PRN PRN Reason: COUGH Hydralazine HCl (Hydralazine 20 Mg/Ml Vial) 10 mg IV Q4H PRN PRN PRN Reason: SBP > 160 Hydrochlorothiazide (Hydrochlorothiazide 12.5mg) 12.5 mg PO DAILY [facility] Last Admin: 11/11/20 09:39 Dose: 12.5 mg Documented by: Meropenem 1 gm/ Sodium (Chloride) 120 mls @ 33 mls/hr IV Q8 [facility] Last Infusion: 11/11/20 09:47 Dose: Infused Documented by: Dextrose/Sodium Chloride (Dextrose 5%/0.9% Nacl) 1,000 mls @ 75 mls/hr IV .[id number] [facility] Last Admin: 11/11/20 06:04 Dose: 75 mls/hr Documented by: Sodium Chloride () 250 mls @ 15 mls/hr IV .[id number] PRN PRN Reason: Saline Flush Last Infusion: 11/11/20 06:09 Dose: Infused Documented by: Sodium Chloride () 250 mls @ 15 mls/hr IV .[id number] PRN PRN Reason: Additional IVPB Infusion Vancomycin IV Pharmacy to Dose (1 ea/ Sodium Chloride) 500 mls @ 250 mls/hr IV X1 PRN; Protocol PRN Reason: Rx to Dose Vancomycin HCl 1,250 mg/ (Sodium Chloride) 275 mls @ 167 mls/hr IV Q12H [facility] Last Infusion: 11/11/20 04:16 Dose: Infused Documented by: Insulin Human Lispro (Insulin Lispro 100 Unit/Ml Insuln.Pen) 0 unit SC ACHS [facility]; Protocol Last Admin: 11/11/20 11:11 Dose: 1 u Documented by: Lorazepam (Lorazepam 2 Mg/Ml Syringe) 0.5 mg IV Q6H PRN PRN PRN Reason: severe muscle cramps Losartan Potassium (Losartan Potassium 100 Mg Tablet) 100 mg PO DAILY [facility] Last Admin: 11/11/20 09:39 Dose: 100 mg Documented by: Magnesium Hydroxide (Magnesium Hydroxide 30 Ml Udc) 30 ml PO DAILY PRN PRN PRN Reason: Constipation Melatonin (Melatonin 3 Mg Tablet) 3 mg PO QHS PRN PRN PRN Reason: INSOMNIA Morphine Sulfate (Morphine 10 Mg/Ml Syringe) 6 mg IV Q3H PRN PRN PRN Reason: Pain Score 6-10 Nicotine (Nicotine 21 Mg Patch) 21 mg TD DAILY [facility] Last Admin: 11/11/20 09:38 Dose: Not Given Documented by: Nutritional Formula (Lactose Free) (Glucerna Shake 120 Ml Liquid) 120 ml PO T IDCM [facility] Last Admin: 11/11/20 11:11 Dose: 120 ml Documented by: Ondansetron HCl (Ondansetron 4 Mg/2 Ml Vial) 4 mg IV Q8H PRN PRN PRN Reason: NAUSEA/VOMITING Oxycodone HCl (Oxycodone 5 Mg Tablet) 10 mg PO Q4H PRN PRN PRN Reason: Pain Score 4-5 Pantoprazole Sodium (Pantoprazole Sodium 40 Mg Tablet) 40 mg PO DAILY [facility] Last Admin: 11/11/20 09:40 Dose: 40 mg Documented by: Prochlorperazine Edisylate (Prochlorperazine 10 Mg/2 Ml Vial) 5 mg IV Q4H PRN PRN PRN Reason: Breakthrough nausea/vomiting Psyllium Hydrophilic Mucilloid (Psyllium 1 Packet) 1 packet PO DAILY PRN PRN PRN Reason: Constipation Rosuvastatin Calcium (Rosuvastatin Calcium 5 Mg Tablet) 5 mg PO QHS [facility] Last Admin: 11/10/20 21:21 Dose: 5 mg Documented by: Sodium Chloride (0.9% Saline Lock 10 Ml Syringe) 10 - 40 ml IV UD PRN PRN Reason: SALINE FLUSH Last Admin: 11/07/20 01:34 Dose: 10 ml Documented by: Sodium Chloride (0.9% Saline Lock 10 Ml Syringe) 10 - 40 ml IV UD PRN PRN Reason: SALINE FLUSH Throat Lozenges (Benzocaine/Menthol 1 Lozenge) 1 lozenge MUCOUS MEM Q2H PRN PRN PRN Reason: SORE THROAT STROKE Vital Signs/Narrative: Vital Signs Temp Pulse Resp BP Pulse Ox 11/11/20 09:31 98.3 F 83 14 103/65 97 Medical Necessity - Tobacco Use Smoking Status: Current every day smoker Tobacco Use: Cigarettes Assessment/Plan All Active Problems (Last Updated 11/08/20 @ 11:[address] Riki Aguirre MD) Ischemia of right lower extremity (Acute) Injury of right common femoral artery (Acute) Postoperative wound dehiscence (Acute) COPD exacerbation (Acute) acute delerium (Acute) Decubitus ulcer (Acute) Pressure ulcer of sacral region, stage 4 (Acute) Skin necrosis (Acute) Urinary retention (Acute) Urge incontinence (Acute) Nocturia (Acute) Intertrochanteric fracture of left hip (Acute) Left humeral fracture (Resolved) #Infected decubitus ulcer of the coccyx * wound culture done on 10/23/2020 grew E coli and gram negative rods, possibly Pseudomonas and Morganella * plastic surgery on board. On IV ciprofloxacin * Debridement done by plastic surgery. Today is POD 3 * on IV meropenem * has wound vac in place * #PAD and CAD: * on aspirin, plavix on hold * on statin and losartan. * Had stents placed in left iliac and left superior femoral arteries in 2019 #?new onset paroxysmal afib * went to [facility] in the operating room. * EKG done subsequently showed EF of 55% with no evidence of diastolic dysfunction and normal right atrial size. Near the junction of the right atrium and IVC close to the base of the tricuspid valve there was a mobile echodensity that could be thrombus, vegetation or mass. * Cardiology consulted on account of this abnormal echo finding; cardiology recommends starting on an oral anticoagulant. * patient started on eliquis 5mg o.a of new echo findings * patient has remained in sinus rhythm since. Not on beta blockers as there has been no evidence of afib since she came out of surgery. * #hypertension: on Norvasc, hydrochlorothiazide and losartan. IV hydralazine as needed #Right healing proximal humeral fracture * shoulder xray done showed healing fracture of the surgical neck of hte proximal left humerus, with residual deformity of the humerus persisting. * I did discuss with Dr Kapoor, who recommended that she follow up with orthopedic surgery on outpatient basis. * #Hyperlipidemia: On statin #Chronic hypoxic respiratory failure due to COPD: On home oxygen. Breathing tr eatments with bronchodilators. #Nicotine dependence: counseled to quit. Nicotine patch 21mg daily DVT prophylaxis: on eliquis Disposition: awaiting placement Inpatient E&M: [id number] [facility] Hosp L2
[2020-11-11] MEDS: diazePAM 5 MG Tablet PO (14:02)
[2020-11-11] MEDS: oxyCODONE 5 MG Tablet 10 MG PO (17:16)
[2020-11-11] MEDS: Acetaminophen 325 MG Tablet 650 MG PO (17:16)
[2020-11-11 17:30] LABS: Bedside Glucose 207 mg/dL (70-110)
[2020-11-11] MEDS: Rosuvastatin Calcium 5 MG Tablet PO (20:46)
[2020-11-11 21:16] LABS: Bedside Glucose 161 mg/dL (70-110)
[2020-11-12] VITALS (10 sets, daily range): BP systolic 114–135; BP diastolic 59–70; PULSE 68–104; RESP 18; TEMP 35.8–36.9; O2SAT 91–98
[2020-11-12 05:26] LABS: Absolute Lymphocyte Count 1.89 X10^3/uL (0.83-4.51); Absolute Neutrophil Count 3.1 X10^3/uL (2.0-7.7); Basophil# 0.04 X10^3/uL; Basophil% 0.7 % (0-1); Eosinophil# 0.35 X10^3/uL; Eosinophils% 5.9 % (0-5); Hemoglobin 11.3 g/dL (12.0-15.0); Lymphocyte # 1.89 X10^3/ul (4.0); Lymphocyte % 32.1 % (19-41); Mean Corp Hgb Conc 32.3 g/dL (32-36); Mean Corpuscular Hgb 30.3 pg (27.0-32.0); Mean Corpuscular Volume 93.8 fL (81-99); Monocyte% 8.5 % (0-10); NRBC Flagged by Analyzer 0 % (0-5); Neutrophil # 3.09 X10^3/uL (2.7-7.7); Neutrophil % 52.5 % (47-70); Platelet Count 394 K/mm3 (150-450); RBC Distribution Width CV 13.4 % (11.6-14.6); RBC Distribution Width SD 46.3 fl (35.1-43.9); Red Blood Count 3.73 M/mm3 (4.2-5.4); White Blood Count 5.9 K/mm3 (4.4-11.0)
[2020-11-12 05:39] LABS: Anion Gap 5 (5-15); BUN 20 mg/dL (7-18); Calcium,Total 8.4 mg/dL (8.5-10.1); Chloride 102 mmol/L (98-107); EST Glomerular Filtration Rate 372 mL/min (>60); Est Glom Filt Rate - Afr Amer 450 mL/min (>60); Estimated Creatinine Clearance 46.43 ml/min; Glucose 102 mg/dL (74-106); Potassium 3.7 mmol/L (3.5-5.1); Sodium Level 139 mmol/L (136-145)
[2020-11-12 07:01] LABS: Bedside Glucose 103 mg/dL (70-110)
[2020-11-12] MEDS: oxyCODONE 5 MG Tablet 10 MG PO ×2 (09:03→12:52)
[2020-11-12] MEDS: Aspirin 81 MG TAB.CHEW PO (09:07)
[2020-11-12] MEDS: Glucerna Shake 120 ML LIQUID PO (09:07)
[2020-11-12] MEDS: amLODIPine 10 MG Tablet PO (09:08)
[2020-11-12] MEDS: Losartan Potassium 100 MG Tablet PO (09:08)
[2020-11-12] MEDS: Pantoprazole Sodium 40 MG Tablet PO (09:08)
[2020-11-12] MEDS: hydroCHLOROthiazide 12.5mg 12.5 MG PO (09:08)
[2020-11-12] MEDS: cycloBENZAPRine HCl 10 MG Tablet PO ×2 (09:08→21:18)
[2020-11-12] MEDS: Docusate Sodium 100 MG Capsule PO ×2 (09:08→21:18)
--- NOTE | 2020-11-12 10:20 | NURSING ---
Wound photo: sacrum
[2020-11-12] MEDS: Dextrose 5%/0.9% NaCl 1,000 ML 75 ML IV (10:43)
[2020-11-12 11:36] LABS: Bedside Glucose 108 mg/dL (70-110)
--- NOTE | 2020-11-12 12:18 | PN_ITS ---
Patient Problems: Active and Suspected Problems (Last Updated 11/08/20 @ 11:[address] Riki Aguirre MD) Decubitus ulcer (Acute) Subjective: Very hard of hearing, does not recognize how much work it will require to take care of her at home, she is adamant about going home and is refusing [facility]ci facility. Vitals/I&O's: Vital Signs Temp Pulse Resp BP Pulse Ox 96.4 F L 104 H 18 114/68 96 11/12/20 08:45 11/12/20 08:45 11/12/20 08:45 11/12/20 08:45 11/12/20 08:45 Oxygen Flow Rate (L/min) 2 Oxygen Delivery Method Nasal Cannula Weight: 200 lb 9.93 oz Body Mass Index (BMI) 22.5 Finger Stick Blood Glucose 156 Intake and Output for Last 24 Hours 11/10/20 11/11/20 11/12/20 23:59 23:59 23:59 Intake Total 3861.25 / 3981.25 3597.25 / 3597.25 1513.75 / 1513.75 Output Total 1800 / 2500 3750 / 3750 500 / 500 Balance 2061.25 / 1481.25 -152.75 / -152.75 1013.75 / 1013.75 General: Alert, Oriented x3, No apparent distress HEENT: Atraumatic, PERRLA, EOMI, Normocephalic, - - Hard of hearing Oral: Moist Mucosa Neck: Supple, No JVD Lungs: Clear to auscultation, Normal air movement, No rhonchi, No wheeze, No rales Cardiovascular: Regular rate, Regular Rhythm, Normal S1, Normal S2, No murmurs Abdomen: Soft, Non Tender, Non-Distended, No Hepato-splenomegaly Extremities: No edema, Capillary Refill Less than 3 Seconds Skin: No rashes, Ulcer/ Wound - Stage IV decubitus ulcer over her coccyx. Bone visible Neurological: Neuro grossly intact, Sensory exam intact to light touch and pain Psych/Mental Status: Normal Affect, Appropriate Microbiology Past 72 Hours 11/07/20 13:00 Tissue - Sacral Gram Stain - Final 11/07/20 13:00 Tissue - Sacral Tissue Culture - Final Escherichia coli Morganella morganii sp morgani Corynebacterium striatum Corynebacterium amycolatum Enterococcus avium Enterococcus faecalis 11/07/20 13:00 Tissue - Sacral Anaerobic Culture - Final Anaerobic cocci Bacteroides uniformis Clostridium group Bacteroides vulgatus 11/06/20 20:18 Ulcer, Decubitus - Buttock Gram Stain - Final 11/06/20 20:18 Ulcer, Decubitus - Buttock Wound Culture - Final Morganella morganii sp morgani Escherichia coli Corynebacterium striatum 11/06/20 20:18 Ulcer, Decubitus - Buttock Anaerobic Culture - Final Anaerobic cocci Bacteroides ovatus Prevotella melaninogenica Clostridium group Fusobacterium varium 11/06/20 19:42 Blood Culture (Wb) - Right Wrist Blood Culture - Final No growth in 5 days. 11/06/20 19:40 Blood Culture (Wb) - Right Hand Blood Culture - Final No growth in 5 days. 11/08/20 11:00 Tissue - Bone Gram Stain - Final 11/08/20 11:00 Tissue - Bone Wound Culture - Final No growth aerobically. 11/08/20 11:00 Tissue - Bone Anaerobic Culture - Preliminary No growth in 48 hours. 11/08/20 11:00 Tissue - Sacral Gram Stain - Final 11/08/20 11:00 Tissue - Sacral Wound Culture - Final Enterococcus avium Corynebacterium striatum Morganella morganii sp morgani Laboratory Results 11/11/20 17:15: POC Glucose 207 H 11/11/20 20:45: POC Glucose 161 H 11/12/20 05:08: WBC 5.9, RBC 3.73 L, Hgb 11.3 L, Hct 35.0 L, MCV 93.8, MCH 30.3, MCHC 32.3, RDW Std Deviation 46.3 H, RDW Coeff of Mirza 13.4, Plt Count 394, MPV 9.0, Immature Gran % (Auto) 0.300, Neut % (Auto) 52.5, Lymph % (Auto) 32.1, [place] % (Auto) 8.5, Eos % (Auto) 5.9 H, Baso % (Auto) 0.7, Absolute Neuts (auto) 3.1, Absolute Lymphs (auto) 1.89, Nucleated RBC % 0 11/12/20 05:08: Sodium 139, Potassium 3.7, Chloride 102, Carbon Dioxide 32.0, Anion Gap 5, BUN 20 H, Creatinine 0.20 L, Estim Creat Clear Calc 46.43, Est GFR (MDRD) Af Amer 450, Est GFR (MDRD) Non-Af 372, BUN/Creatinine Ratio 100.0 H, Glucose 102, Calcium 8.4 L 11/12/20 06:53: POC Glucose 103 11/12/20 11:20: POC Glucose 108 Current Medications Acetaminophen (Acetaminophen 325 Mg Tablet) 650 mg PO Q6H PRN PRN PRN Reason: Pain Score 1-10/Temp > 100.7 F Last Admin: 11/11/20 17:16 Dose: 650 mg Documented by: Al Hydroxide/Mg Hydroxide (Mag Hydrox/Al Hydrox/Simeth 30 Ml Udc) 30 ml PO Q6H PRN PRN PRN Reason: Gastric Burning Albuterol Sulfate (Albuterol 2.5 Mg/3 Ml Vial.Neb.) 2.5 mg INHALATION Q2H PRN PRN PRN Reason: Dyspnea, wheezing Amlodipine Besylate (Amlodipine 10 Mg Tablet) 10 mg PO DAILY [facility] Last Admin: 11/12/20 09:08 Dose: 10 mg Documented by: Apixaban (Apixaban 5 Mg Tablet) 5 mg PO BID [facility] Last Admin: 11/11/20 20:46 Dose: 5 mg Documented by: Aspirin (Aspirin 81 Mg Tab.Chew) 81 mg PO DAILY@0800 [facility] Last Admin: 11/12/20 09:07 Dose: 81 mg Documented by: Cyclobenzaprine HCl (Cyclobenzaprine Hcl 10 Mg Tablet) 10 mg PO BID [facility] Last Admin: 11/12/20 09:08 Dose: 10 mg Documented by: Diazepam (Diazepam 5 Mg Tablet) 5 mg PO 4X/DAY PRN PRN PRN Reason: SPASMS Last Admin: 11/11/20 14:02 Dose: 5 mg Documented by: Docusate Sodium (Docusate Sodium 100 Mg Capsule) 100 mg PO BID [facility] Last Admin: 11/12/20 09:08 Dose: 100 mg Documented by: Guaifenesin (Guaifenesin 10 Ml Udc (200mg/10ml)) 20 ml PO Q4H PRN PRN PRN Reason: COUGH Hydralazine HCl (Hydralazine 20 Mg/Ml Vial) 10 mg IV Q4H PRN PRN PRN Reason: SBP > 160 Hydrochlorothiazide (Hydrochlorothiazide 12.5mg) 12.5 mg PO DAILY [facility] Last Admin: 11/12/20 09:08 Dose: 12.5 mg Documented by: Meropenem 1 gm/ Sodium (Chloride) 120 mls @ 33 mls/hr IV Q8 [facility] Last Infusion: 11/12/20 09:28 Dose: Infused Documented by: Dextrose/Sodium Chloride (Dextrose 5%/0.9% Nacl) 1,000 mls @ 75 mls/hr IV .[id number] [facility] Last Admin: 11/12/20 10:43 Dose: 75 mls/hr Documented by: Sodium Chloride () 250 mls @ 15 mls/hr IV .[id number] PRN PRN Reason: Saline Flush Last Infusion: 11/11/20 06:09 Dose: Infused Documented by: Sodium Chloride () 250 mls @ 15 mls/hr IV .[id number] PRN PRN Reason: Additional IVPB Infusion Vancomycin IV Pharmacy to Dose (1 ea/ Sodium Chloride) 500 mls @ 250 mls/hr IV X1 PRN; Protocol PRN Reason: Rx to Dose Vancomycin HCl 1,250 mg/ (Sodium Chloride) 275 mls @ 167 mls/hr IV Q12H [facility] Last Infusion: 11/12/20 03:15 Dose: Infused Documented by: Insulin Human Lispro (Insulin Lispro 100 Unit/Ml Insuln.Pen) 0 unit SC ACHS [facility]; Protocol Last Admin: 11/12/20 11:32 Dose: Not Given Documented by: Lorazepam (Lorazepam 2 Mg/Ml Syringe) 0.5 mg IV Q6H PRN PRN PRN Reason: severe muscle cramps Losartan Potassium (Losartan Potassium 100 Mg Tablet) 100 mg PO DAILY [facility] Last Admin: 11/12/20 09:08 Dose: 100 mg Documented by: Magnesium Hydroxide (Magnesium Hydroxide 30 Ml Udc) 30 ml PO DAILY PRN PRN PRN Reason: Constipation Melatonin (Melatonin 3 Mg Tablet) 3 mg PO QHS PRN PRN PRN Reason: INSOMNIA Morphine Sulfate (Morphine 10 Mg/Ml Syringe) 6 mg IV Q3H PRN PRN PRN Reason: Pain Score 6-10 Nicotine (Nicotine 21 Mg Patch) 21 mg TD DAILY [facility] Last Admin: 11/12/20 09:29 Dose: Not Given Documented by: Nutritional Formula (Lactose Free) (Glucerna Shake 120 Ml Liquid) 120 ml PO TIDCM [facility] Last Admin: 11/12/20 11:32 Dose: Not Given Documented by: Ondansetron HCl (Ondansetron 4 Mg/2 Ml Vial) 4 mg IV Q8H PRN PRN PRN Reason: NAUSEA/VOMITING Oxycodone HCl (Oxycodone 5 Mg Tablet) 10 mg PO Q4H PRN PRN PRN Reason: Pain Score 4-5 Last Admin: 11/12/20 09:03 Dose: 10 mg Documented by: Pantoprazole Sodium (Pantoprazole Sodium 40 Mg Tablet) 40 mg PO DAILY [facility] Last Admin: 11/12/20 09:08 Dose: 40 mg Documented by: Prochlorperazine Edisylate (Prochlorperazine 10 Mg/2 Ml Vial) 5 mg IV Q4H PRN PRN PRN Reason: Breakthrough nausea/vomiting Psyllium Hydrophilic Mucilloid (Psyllium 1 Packet) 1 packet PO DAILY PRN PRN PRN Reason: Constipation Rosuvastatin Calcium (Rosuvastatin Calcium 5 Mg Tablet) 5 mg PO QHS [facility] Last Admin: 11/11/20 20:46 Dose: 5 mg Documented by: Sodium Chloride (0.9% Saline Lock 10 Ml Syringe) 10 - 40 ml IV UD PRN PRN Reason: SALINE FLUSH Last Admin: 11/07/20 01:34 Dose: 10 ml Documented by: Sodium Chloride (0.9% Saline Lock 10 Ml Syringe) 10 - 40 ml IV UD PRN PRN Reason: SALINE FLUSH Throat Lozenges (Benzocaine/Menthol 1 Lozenge) 1 lozenge MUCOUS MEM Q2H PRN PRN PRN Reason: SORE THROAT STROKE Vital Signs/Narrative: Vital Signs Temp Pulse Resp BP Pulse Ox 11/12/20 08:45 96.4 F L 104 H 18 114/68 96 Medical Necessity - Tobacco Use Smoking Status: Current every day smoker Tobacco Use: Cigarettes Assessment/Plan All Active Problems (Last Updated 11/08/20 @ 11:[address] Riki Aguirre MD) Ischemia of right lower extremity (Acute) Injury of right common femoral artery (Acute) Postoperative wound dehiscence (Acute) COPD exacerbation (Acute) acute delerium (Acute) Decubitus ulcer (Acute) Pressure ulcer of sacral region, stage 4 (Acute) Skin necrosis (Acute) Urinary retention (Acute) Urge incontinence (Acute) Nocturia (Acute) Intertrochanteric fracture of left hip (Acute) Left humeral fracture (Resolved) 1. Infected decubitus ulcer of the coccyx, stage IV with visible bone/debility -Debridement on 11/08/2020 -Appreciate surgery and ID for their assistance, continue with meropenem and vancomycin -Cultures positive for Morganella, E. coli, corynebacterium, Enterococcus -PT/OT, recommend additional therapy she was a maximum assist of 2 for most, she has not ambulated in 3 years and is bedbound. Her has difficulty turning her as she does not assist 2. PAD/CAD/new onset paroxysmal A. fib/HTN/HLD -Blood pressure stable -Echo demonstrated an EF of 55% with normal diastolic function. However there was a possible thrombus or vegetation at the base the tricuspid valve therefore cardiology felt that it be necessary to start on Eliquis which she is now on. -Continue with home blood pressure medications -Continue with statin 3. Right healing proximal humeral fracture -She did fall in break her left shoulder 3 years ago, will follow up with orthopedic surgery as an outpatient chronic deformity 4. Chronic hypoxic respiratory failure secondary to COPD/tobacco abuse -Continue with her home oxygen of 1 to 2 L nasal cannula -Nicotine patch 21 mg daily DVT: Eliquis Disposition: She does understand how unsafe she is to go back home, while in the care of her family her decubitus ulcer worsened. Continue to recommend fci placement otherwise we will also have palliative care evaluate her as she will not do well at home and there is a high probability of her returning back septic. Inpatient E&M: [id number] [facility] Hosp L2
--- NOTE | 2020-11-12 13:54 | CASEMGMT ---
CHRISSY called patient's daughter. CHRISSY asked if she has talked with patient about a discharge plan. She said she is working on finding another home health agency. She said [facility] would be the first choice for [facility]. CHRISSY told her SW is going to send the referral to [facility] to see if they will accept patient. She was in agreement with this. CHRISSY called [facility] and made referral to Beckie. CHRISSY also faxed all referral information to [facility]. Await response from [facility]. Georgie GORDON MSW
--- NOTE | 2020-11-12 14:44 | CASEMGMT ---
Pt qualifies for a Palliative referral per the [facility] palliative screening tool. Dr. Leon aware and states ok for Palliative c/s at this time. Palliative updated at this time. Kal ALMODOVAR CM
--- NOTE | 2020-11-12 15:02 | CASEMGMT ---
Beckie called CHRISSY and asked about what IV antibiotics patient will be on at d/c. CHRISSY faxed her the prescriptions that Dr Yousif prescribed. Await response from [facility] regarding whether or not they can accept patient. Georgie GORDON MSW
--- NOTE | 2020-11-12 15:14 | PN.ID_ITS ---
Patient Problems: Active and Suspected Problems (Last Updated 11/08/20 @ 11:[address] Riki Aguirre MD) Decubitus ulcer (Acute) Subjective: Sleeping this afternoon, no fever - Physical Exam Vitals/I&O's: Vital Signs Temp Pulse Resp BP Pulse Ox 96.4 F L 104 H 18 114/68 91 11/12/20 08:45 11/12/20 08:45 11/12/20 08:45 11/12/20 08:45 11/12/20 12:06 Oxygen Flow Rate (L/min) 2 Oxygen Delivery Method Nasal Cannula Weight: 91 kg Body Mass Index (BMI) 22.5 Finger Stick Blood Glucose 156 Intake and Output for Last 24 Hours 11/10/20 11/11/20 11/12/20 23:59 23:59 23:59 Intake Total 3861.25 / 3981.25 3597.25 / 3597.25 1873.75 / 1873.75 Output Total 1800 / 2500 3750 / 3750 1450 / 1450 Balance 2061.25 / 1481.25 -152.75 / -152.75 423.75 / 423.75 General: No apparent distress Lungs: Clear to auscultation, Normal air movement Cardiovascular: Regular rate, Regular Rhythm Abdomen: Soft, Non Tender, Non-Distended Skin: No rashes Microbiology Past 72 Hours 11/07/20 13:00 Tissue - Sacral Gram Stain - Final 11/07/20 13:00 Tissue - Sacral Tissue Culture - Final Escherichia coli Morganella morganii sp morgani Corynebacterium striatum Corynebacterium amycolatum Enterococcus avium Enterococcus faecalis 11/07/20 13:00 Tissue - Sacral Anaerobic Culture - Final Anaerobic cocci Bacteroides uniformis Clostridium group Bacteroides vulgatus 11/06/20 20:18 Ulcer, Decubitus - Buttock Gram Stain - Final 11/06/20 20:18 Ulcer, Decubitus - Buttock Wound Culture - Final Morganella morganii sp morgani Escherichia coli Corynebacterium striatum 11/06/20 20:18 Ulcer, Decubitus - Buttock Anaerobic Culture - Final Anaerobic cocci Bacteroides ovatus Prevotella melaninogenica Clostridium group Fusobacterium varium 11/06/20 19:42 Blood Culture (Wb) - Right Wrist Blood Culture - Final No growth in 5 days. 11/06/20 19:40 Blood Culture (Wb) - Right Hand Blood Culture - Final No growth in 5 days. 11/08/20 11:00 Tissue - Bone Gram Stain - Final 11/08/20 11:00 Tissue - Bone Wound Culture - Final No growth aerobically. 11/08/20 11:00 Tissue - Bone Anaerobic Culture - Preliminary No growth in 48 hours. 11/08/20 11:00 Tissue - Sacral Gram Stain - Final 11/08/20 11:00 Tissue - Sacral Wound Culture - Final Enterococcus avium Corynebacterium striatum Morganella morganii sp morgani Laboratory Results 11/11/20 17:15: POC Glucose 207 H 11/11/20 20:45: POC Glucose 161 H 11/12/20 05:08: WBC 5.9, RBC 3.73 L, Hgb 11.3 L, Hct 35.0 L, MCV 93.8, MCH 30.3, MCHC 32.3, RDW Std Deviation 46.3 H, RDW Coeff of Mirza 13.4, Plt Count 394, MPV 9.0, Immature Gran % (Auto) 0.300, Neut % (Auto) 52.5, Lymph % (Auto) 32.1, [place] % (Auto) 8.5, Eos % (Auto) 5.9 H, Baso % (Auto) 0.7, Absolute Neuts (auto) 3.1, Absolute Lymphs (auto) 1.89, Nucleated RBC % 0 11/12/20 05:08: Sodium 139, Potassium 3.7, Chloride 102, Carbon Dioxide 32.0, Anion Gap 5, BUN 20 H, Creatinine 0.20 L, Estim Creat Clear Calc 46.43, Est GFR (MDRD) Af Amer 450, Est GFR (MDRD) Non-Af 372, BUN/Creatinine Ratio 100.0 H, Glucose 102, Calcium 8.4 L 11/12/20 06:53: POC Glucose 103 11/12/20 11:20: POC Glucose 108 Current Medications Acetaminophen (Acetaminophen 325 Mg Tablet) 650 mg PO Q6H PRN PRN PRN Reason: Pain Score 1-10/Temp > 100.7 F Last Admin: 11/11/20 17:16 Dose: 650 mg Documented by: Al Hydroxide/Mg Hydroxide (Mag Hydrox/Al Hydrox/Simeth 30 Ml Udc) 30 ml PO Q6H PRN PRN PRN Reason: Gastric Burning Albuterol Sulfate (Albuterol 2.5 Mg/3 Ml Vial.Neb.) 2.5 mg INHALATION Q2H PRN PRN PRN Reason: Dyspnea, wheezing Amlodipine Besylate (Amlodipine 10 Mg Tablet) 10 mg PO DAILY [facility] Last Admin: 11/12/20 09:08 Dose: 10 mg Documented by: Apixaban (Apixaban 5 Mg Tablet) 5 mg PO BID [facility] Last Admin: 11/11/20 20:46 Dose: 5 mg Documented by: Aspirin (Aspirin 81 Mg Tab.Chew) 81 mg PO DAILY@0800 [facility] Last Admin: 11/12/20 09:07 Dose: 81 mg Documented by: Cyclobenzaprine HCl (Cyclobenzaprine Hcl 10 Mg Tablet) 10 mg PO BID [facility] Last Admin: 11/12/20 09:08 Dose: 10 mg Documented by: Diazepam (Diazepam 5 Mg Tablet) 5 mg PO 4X/DAY PRN PRN PRN Reason: SPASMS Last Admin: 11/11/20 14:02 Dose: 5 mg Documented by: Docusate Sodium (Docusate Sodium 100 Mg Capsule) 100 mg PO BID [facility] Last Admin: 11/12/20 09:08 Dose: 100 mg Documented by: Guaifenesin (Guaifenesin 10 Ml Udc (200mg/10ml)) 20 ml PO Q4H PRN PRN PRN Reason: COUGH Hydralazine HCl (Hydralazine 20 Mg/Ml Vial) 10 mg IV Q4H PRN PRN PRN Reason: SBP > 160 Hydrochlorothiazide (Hydrochlorothiazide 12.5mg) 12.5 mg PO DAILY [facility] Last Admin: 11/12/20 09:08 Dose: 12.5 mg Documented by: Dextrose/Sodium Chloride (Dextrose 5%/0.9% Nacl) 1,000 mls @ 75 mls/hr IV .[id number] [facility] Last Admin: 11/12/20 10:43 Dose: 75 mls/hr Documented by: Sodium Chloride () 250 mls @ 15 mls/hr IV .[id number] PRN PRN Reason: Saline Flush Last Infusion: 11/11/20 06:09 Dose: Infused Documented by: Sodium Chloride () 250 mls @ 15 mls/hr IV .[id number] PRN PRN Reason: Additional IVPB Infusion Vancomycin IV Pharmacy to Dose (1 ea/ Sodium Chloride) 500 mls @ 250 mls/hr IV X1 PRN; Protocol PRN Reason: Rx to Dose Vancomycin HCl 1,250 mg/ (Sodium Chloride) 275 mls @ 167 mls/hr IV Q12H [facility] Last Infusion: 11/12/20 03:15 Dose: Infused Documented by: Cefepime HCl 2 gm/ Sodium (Chloride) 100 mls @ 200 mls/hr IV Q8 [facility] Last Admin: 11/12/20 14:10 Dose: 200 mls/hr Documented by: Insulin Human Lispro (Insulin Lispro 100 Unit/Ml Insuln.Pen) 0 unit SC ACHS [facility]; Protocol Last Admin: 11/12/20 11:32 Dose: Not Given Documented by: Lorazepam (Lorazepam 2 Mg/Ml Syringe) 0.5 mg IV Q6H PRN PRN PRN Reason: severe muscle cramps Losartan Potassium (Losartan Potassium 100 Mg Tablet) 100 mg PO DAILY [facility] Last Admin: 11/12/20 09:08 Dose: 100 mg Documented by: Magnesium Hydroxide (Magnesium Hydroxide 30 Ml Udc) 30 ml PO DAILY PRN PRN PRN Reason: Constipation Melatonin (Melatonin 3 Mg Tablet) 3 mg PO QHS PRN PRN PRN Reason: INSOMNIA Metronidazole (Metronidazole 500 Mg Tablet) 500 mg PO TID [facility] Morphine Sulfate (Morphine 10 Mg/Ml Syringe) 6 mg IV Q3H PRN PRN PRN Reason: Pain Score 6-10 Nicotine (Nicotine 21 Mg Patch) 21 mg TD DAILY [facility] Last Admin: 11/12/20 09:29 Dose: Not Given Documented by: Nutritional Formula (Lactose Free) (Glucerna Shake 120 Ml Liquid) 120 ml PO TIDCM [facility] Last Admin: 11/12/20 11:32 Dose: Not Given Documented by: Ondansetron HCl (Ondansetron 4 Mg/2 Ml Vial) 4 mg IV Q8H PRN PRN PRN Reason: NAUSEA/VOMITING Oxycodone HCl (Oxycodone 5 Mg Tablet) 10 mg PO Q4H PRN PRN PRN Reason: Pain Score 4-5 Last Admin: 11/12/20 12:52 Dose: 10 mg Documented by: Pantoprazole Sodium (Pantoprazole Sodium 40 Mg Tablet) 40 mg PO DAILY [facility] Last Admin: 11/12/20 09:08 Dose: 40 mg Documented by: Prochlorperazine Edisylate (Prochlorperazine 10 Mg/2 Ml Vial) 5 mg IV Q4H PRN PRN PRN Reason: Breakthrough nausea/vomiting Psyllium Hydrophilic Mucilloid (Psyllium 1 Packet) 1 packet PO DAILY PRN PRN PRN Reason: Constipation Rosuvastatin Calcium (Rosuvastatin Calcium 5 Mg Tablet) 5 mg PO QHS [facility] Last Admin: 11/11/20 20:46 Dose: 5 mg Documented by: Sodium Chloride (0.9% Saline Lock 10 Ml Syringe) 10 - 40 ml IV UD PRN PRN Reason: SALINE FLUSH Last Admin: 11/07/20 01:34 Dose: 10 ml Documented by: Sodium Chloride (0.9% Saline Lock 10 Ml Syringe) 10 - 40 ml IV UD PRN PRN Reason: SALINE FLUSH Throat Lozenges (Benzocaine/Menthol 1 Lozenge) 1 lozenge MUCOUS MEM Q2H PRN PRN PRN Reason: SORE THROAT Medical Necessity - Tobacco Use Smoking Status: Current every day smoker Tobacco Use: Cigarettes Route of nutrition/ use of supplements: [] Nutritional Intake: [] IV Site: [] [place] Catheter: [] - Assessment/Plan Antibiotics: [] Assessment/Plan: [] Active and Suspected Problems (Last Reviewed 04/19/20 @ 11:33 by Qian Thrasher) Decubitus ulcer (Acute) sacral osteo - OR 11/[address] Aguirre for debridement. Wound cx 11/02/20 with ecoli, morganella, pseudomonas, and actinomyces. Surg cx with enterococcus x2, ecoli, morganella, diphtheroids x2. Will narrow abx to vanc/cefepime/flagyl, stop date 12/20/20, weekly bmp, cbc, vanc trough, and esr. Ordering picc. Will follow, d/w case folder. ID followup in 2-3 weeks.
[2020-11-12] MEDS: metroNIDAZOLE 500 MG Tablet PO ×2 (15:16→21:17)
--- NOTE | 2020-11-12 15:45 | CASEMGMT ---
CHRISSY received a call from [facility] and they can accept patient. She will start the pre-cert. CHRISSY was getting ready to leave for the day so SW will notify patient and her daughter in the am. Georgie FOUNTAIN
[2020-11-12 17:50] LABS: Bedside Glucose 78 mg/dL (70-110)
[2020-11-12] MEDS: APIXABAN 5 MG TABLET PO (21:17)
[2020-11-12] MEDS: Rosuvastatin Calcium 5 MG Tablet PO (21:18)
[2020-11-12 21:40] LABS: Bedside Glucose 140 mg/dL (70-110)
[2020-11-13] VITALS (7 sets, daily range): BP systolic 122–146; BP diastolic 50–91; PULSE 80–100; RESP 14–17; TEMP 36.4–37.2; O2SAT 92–96
[2020-11-13] MEDS: Dextrose 5%/0.9% NaCl 1,000 ML 75 ML IV (01:59)
[2020-11-13] MEDS: metroNIDAZOLE 500 MG Tablet PO ×2 (05:18→13:28)
[2020-11-13 06:45] LABS: Bedside Glucose 109 mg/dL (70-110)
--- NOTE | 2020-11-13 07:14 | CASEMGMT ---
CHRISSY received a voice mail from [facility]. Patient was approved. CHRISSY will notify physician, patient, and her daughter. Plan: d/c to [facility] under skilled level of care on a convalescent stay. Georgie FUONTAIN
--- NOTE | 2020-11-13 08:46 | NURSING ---
In to assess wound VAC dressing. good seal noted at 150mmHg low continuous suction. According to notes, daughter had agreed to [facility] at discharge. SW awaiting to hear back from [facility]. will continue to follow.
[2020-11-13] MEDS: Pantoprazole Sodium 40 MG Tablet PO (09:00)
[2020-11-13] MEDS: Aspirin 81 MG TAB.CHEW PO (09:00)
[2020-11-13] MEDS: Losartan Potassium 100 MG Tablet PO (09:00)
[2020-11-13] MEDS: Docusate Sodium 100 MG Capsule PO (09:01)
[2020-11-13] MEDS: hydroCHLOROthiazide 12.5mg 12.5 MG PO (09:01)
[2020-11-13] MEDS: oxyCODONE 5 MG Tablet 10 MG PO ×2 (09:01→13:38)
[2020-11-13] MEDS: cycloBENZAPRine HCl 10 MG Tablet PO (09:01)
[2020-11-13] MEDS: APIXABAN 5 MG TABLET PO (09:01)
[2020-11-13] MEDS: Glucerna Shake 120 ML LIQUID PO ×2 (09:01→11:33)
[2020-11-13] MEDS: amLODIPine 10 MG Tablet PO (09:03)
--- NOTE | 2020-11-13 09:18 | CASEMGMT ---
CHRISSY had a message to call Emilie Mcleod with [facility] and a message to call patient's daughter. CHRISSY called Emilie and explained to her that patient needs to go to a half-way. She spoke with both Sin and patient's daughter. Both were upset. SW explained to her that patient is noncompliant with staying off of her backside. She will not turn regularly. CHRISSY told her she has a wound vac, she will be on 2 IV antibiotics, and she is a dependent assist of 2 people. SW let her know [facility] can take patient and she was approved so she will go today. CHRISSY called Chloé, patient's daughter and let her know that [facility] can take patient and she was approved. SW let her know she will go today. She asked if she could have a home health list. CHRISSY told her SW can give her one when she comes in. She wants to visit patient before she leaves. CHRISSY told her SW will let her know when SW has a time set up. Plan: d/c to [facility] under skilled level of care on a convalescent stay. Physicians will transport patient. Georgie FOUNTAIN
--- NOTE | 2020-11-13 09:28 | PCM.CONS.P ---
Problem List (1) Debility Status: Chronic (2) Chronic back pain Status: Chronic (3) Compression fracture Status: Chronic (4) Type II diabetes mellitus Status: Acute (5) COPD (chronic obstructive pulmonary disease) Status: Chronic Qualifiers: COPD type: unspecified COPD Qualified Code(s): J44.9 - Chronic obstructive pulmonary disease, unspecified (6) Decubitus ulcer Status: Acute Qualifiers: Pressure injury location: buttock Pressure injury stage: unstageable Laterality: unspecified laterality Qualified Code(s): L89.300 - Pressure ulcer of unspecified buttock, unstageable (7) PAD (peripheral artery disease) Status: Chronic (8) Chronic respiratory failure with hypoxia Status: Chronic (9) History of stroke Status: Chronic (10) History of MRSA infection Status: Chronic (11) Neurogenic bladder Status: Chronic (12) HTN (hypertension) Status: Chronic Qualifiers: Hypertension type: essential hypertension Qualified Code(s): I10 - Essential (primary) hypertension (13) Chronic ulcer of left heel with fat layer exposed Status: Chronic (14) Tobacco abuse Status: Chronic (15) Urinary retention Status: Acute History of Present Illness Date of Consult: 11/13/20 Requesting physician: [] Primary care physician: Dr. Cabrera Taylor III, MD - History of Present Illness The patient is a 70 year old F who presented to [facility] ED on 11/06/2020 with complaints of a progressively worsening wound to the coccyx. Wound started in September and now has a significant foul odor with discharge. No systemic symptoms of illness. Severely debilitated and essentially bedridden. PMH as below. Palliative care was consulted for symptom management of pain. Patient wears supplemental oxygen at home. She is still a current smoker. Plastic surgery was consulted and patient had a debridement of the wound, now has a wound VAC in place. Wound culture showed Morganella morganii, E. coli, corneal bacterium, and Enterococcus. She is on IV antibiotics. She was having some muscle spasms so was given Valium. Noted to have inadequate pain relief with morphine 2 mg, dose is now 6 mg. Plans are for patient to go to extended care facility soon. Wants to go home but is significantly weak and deconditioned. She is going to be following with the wound center. Patient had a shoulder x-ray done while hospitalized and showed a healing fracture of the surgical neck of the proximal left humerus with residual deformity of the humerus persisting. It was recommended she follow-up with orthopedics as an outpatient. Echocardiogram showed estimated EF of 55%, no evidence of diastolic dysfunction, near the junction of the RA and IVC close to the base of the tricuspid valve there was a mobile echodensity that could be thrombus, vegetation, or mass. She was placed on anticoagulation for new onset A. fib. Cardiology was consulted and patient is now anticoagulated. They are going to repeat the echo in about a month to assess the density. Patient lives at home with her in an apartment. She depends on her family to provide her personal care. Her daughter Chloé helps out a lot. Patient does have a hospital bed, wheelchair, walker, tub bench, nebulizer, and oxygen at home through her [employer]. She is having a hard time with being in the hospital and does not want to go to a care home facility. She does not seem to understand the level of care she is requiring. Patient is very hard of hearing and is difficult to communicate with her. Used a writing board. She seems to be alert and oriented x3. Oxycodone 10 mg every 4 hours as needed has been effective for her pain. She is going to [facility] later today. Patient states she has some chronic pain issues from prior fractures to her shoulder and arm, as well as her hip. She cannot remember what she takes at home for pain. Patient Problems: Chronic Problems (Last Updated 11/08/20 @ 11:[address] Riki Aguirre MD) Ulcer of right lower leg (Chronic) Ulcer of right groin with fat layer exposed (Chronic) Wound of right lower extremity (Chronic) Right lower extremity with fat layer exposed Compression fracture (Chronic) Debility (Chronic) COPD (chronic obstructive pulmonary disease) (Chronic) Chronic respiratory failure with hypoxia (Chronic) Osteomyelitis of pelvic region (Chronic) History of stroke (Chronic) History of MRSA infection (Chronic) Chronic back pain (Chronic) Hx of tonsillectomy (Chronic) Hx of bladder repair surgery (Chronic) History of partial hysterectomy (Chronic) History of lumpectomy of right breast (Chronic) History of right-sided carotid endarterectomy (Chronic) 2009 Hx TIA/stroke w/o resid (Chronic) Diabetes (Chronic) Neurogenic bladder (Chronic) Neurogenic bladder (Chronic) HTN (hypertension) (Chronic) Chronic ulcer of left heel with fat layer exposed (Chronic) Decubitus ulcer of left heel, stage 4 (Chronic) PAD (peripheral artery disease) (Chronic) Tobacco abuse (Chronic) Surgical History: total hip arthroplasty, - - Bladder Surgery x 2, right carotid endarectomy, bladder stimulator, bilateral lower extremity PCI most recently 2018 left iliac and left SFA, left hip surgery following fracture, hysterectomy. Psychiatric History: Anxiety Home Medications: Ambulatory Orders Medication Instructions Recorded Hydrochlorothiazide [Hctz] 12.5 mg PO DAILY 06/16/18 Losartan Potassium [Cozaar] 100 mg PO DAILY 06/16/18 Rosuvastatin Calcium 5 mg PO QHS 09/08/18 Clopidogrel Bisulfate [Plavix] 75 mg PO DAILY 02/12/19 metFORMIN (XR) [Glucophage Xr] 500 mg PO BID 04/30/20 Amlodipine [Norvasc] 10 mg PO DAILY 11/06/20 Aspirin [Aspirin, Baby] 81 mg PO DAILY@0800 11/06/20 Cyclobenzaprine HCl 10 mg PO BID 11/06/20 Docusate Sodium [Colace] 100 mg PO BID 11/06/20 Ipratropium/Albuterol Sulfate 3 ml INHALATION Q4H.RT 11/06/20 [Duoneb] Lansoprazole [Prevacid] 30 mg PO DAILY 11/06/20 Multivitamin with Minerals 1 ea PO DAILY 11/06/20 [Multiple Vitamin] Naproxen [Naprosyn] 500 mg PO BID PRN PRN 11/06/20 Cefepime HCl [Maxipime] 2 gm IV Q8 38 Days #114 vial 11/12/20 Vancomycin IV 1,250 mg IV Q12H 38 Days #76 vial 11/12/20 metroNIDAZOLE [Flagyl] 500 mg PO TID #120 tab 11/12/20 Apixaban [Eliquis] 5 mg PO BID #60 tab 11/13/20 Nicotine [Nicoderm Cq] 21 mg TD DAILY #30 patch 11/13/20 Oxycodone [Oxyir] 10 mg PO Q4H PRN PRN 4 Days #20 tab 11/13/20 Allergies amoxicillin [From Augmentin] Allergy (Verified 11/06/20 18:58) Rash atorvastatin [From Lipitor] Allergy (Verified 11/06/20 18:58) Other clavulanic acid [From Augmentin] Allergy (Verified 11/06/20 18:58) Rash gabapentin Allergy (Verified 11/06/20 18:58) Nausea quinapril [From Accupril] Allergy (Verified 11/06/20 18:58) Rash fluoxetine Adverse Reaction (Verified 11/06/20 18:58) Other Paternal Family History: Family History (Last Reviewed 11/13/20 @ 09:51 by ROSSI Kent) Mother Tuberculosis Father Heart disease CVA (cerebral vascular accident) Sister Multiple sclerosis Brother Heart disease History Items: High Cholesterol, Heart Disease, Hypertension, Stroke Maternal Family History: Family History (Last Reviewed 11/13/20 @ 09:51 by ROSSI Kent) Mother Tuberculosis Father Heart disease CVA (cerebral vascular accident) Sister Multiple sclerosis Brother Heart disease History Items: Pulmonary Disease, - - Mother with history of tuberculosis. - Social History Lives: Spouse/ Significant Other Smoking Status: Current every day smoker Tobacco Use: Cigarettes Alcohol: None Drugs: None Code Status: Full Code Review of Systems Constitutional: Reports: Anorexia, Malaise, Weakness, Fatigue. Denies: Chills, Fever Eyes: Denies: Vision Change HEENT: Reports: Difficulty Hearing. Denies: Difficulty Swallowing, Sore Throat Cardiovascular: Reports: Edema. Denies: Chest Pain, Orthopnea Respiratory: Denies: Cough, Shortness of Breath, Wheezing Gastrointestinal: Denies: Abdominal Pain, Constipation, Nausea, Vomiting Genitourinary: Reports: Incontinence Musculoskeletal: Reports: Arm Pain, Back Pain, Joint Pain, Joint stiffness, Leg Pain, Shoulder Pain Skin: Reports: Wounds - sacral debubitus Neurological: Reports: Numbness, Tingling. Denies: Change in Speech, Tremor, Seizures Psychiatric: Reports: Anxiety, Depression Hematologic/ Lymphatic: Reports: Easy Bruising. Denies: Anemia Physical Exam Subjective: States she is ticked off at [facility] for stealing $154 of her clothes. States she wants to go home and not to nursing facility. Reports no current pain, took an oxy a little while ago. General: Alert, Oriented x3, Cooperative, No apparent distress HEENT: Atraumatic, Normocephalic Oral: Moist Mucosa Neck: Supple, No Nodes Lungs: Clear to auscultation, Diminished - poor inspiratory effort Cardiovascular: Regular rate, Regular Rhythm, Normal S1, Normal S2 Abdomen: Bowel Sounds Present, Soft, Non Tender, Obese Extremities: No clubbing, Diminished Peripheral Pulses, Edema Skin: Ulcer/ Wound Musculoskeletal: Arthritic Changes, Muscle Wasting, Tenderness Neurological: Cranial nerves II-XII grossly intact - very CACHIL DEHE but following commands Psych/Mental Status: Agitated - cooperative w/ this provider Objective: Vital Signs Temp Pulse Resp BP Pulse Ox 97.5 F L 100 15 126/91 H 94 11/13/20 08:59 11/13/20 08:59 11/13/20 08:59 11/13/20 08:59 11/13/20 08:59 Oxygen Flow Rate (L/min) 2 Oxygen Delivery Method Nasal Cannula Weight: 93.3 kg Body Mass Index (BMI) 22.5 Finger Stick Blood Glucose 156 Intake and Output for Last 24 Hours 11/11/20 11/12/20 11/13/20 23:59 23:59 23:59 Intake Total 3597.25 / 3597.25 2708.75 / 2908.75 1675 / 1675 Output Total 3750 / 3750 2100 / 2550 1450 / 1450 Balance -152.75 / -152.75 608.75 / 358.75 225 / 225 Microbiology Past 72 Hours 11/08/20 11:00 Gram Stain - Final Tissue - Sacral Wound Culture - Final Enterococcus avium Corynebacterium striatum Morganella morganii sp morgani Anaerobic Culture - Final Anaerobic cocci Porphyromonas species Clostridium group Bacteroides uniformis 11/08/20 11:00 Gram Stain - Final Tissue - Bone Wound Culture - Final No growth aerobically. Anaerobic Culture - Final No growth in 5 days. 11/07/20 13:00 Gram Stain - Final Tissue - Sacral Tissue Culture - Final Escherichia coli Morganella morganii sp morgani Corynebacterium striatum Corynebacterium amycolatum Enterococcus avium Enterococcus faecalis Anaerobic Culture - Final Anaerobic cocci Bacteroides uniformis Clostridium group Bacteroides vulgatus 11/06/20 20:18 Gram Stain - Final Ulcer, Decubitus - Buttock Wound Culture - Final Morganella morganii sp morgani Escherichia coli Corynebacterium striatum Anaerobic Culture - Final Anaerobic cocci Bacteroides ovatus Prevotella melaninogenica Clostridium group Fusobacterium varium 11/06/20 19:42 Blood Culture - Final Blood Culture (Wb) - Right Wrist No growth in 5 days. 11/06/20 19:40 Blood Culture - Final Blood Culture (Wb) - Right Hand No growth in 5 days. Assessment/Plan All Active Problems (Last Updated 11/08/20 @ 11:[address] Riki Aguirre MD) Ischemia of right lower extremity (Acute) Injury of right common femoral artery (Acute) Postoperative wound dehiscence (Acute) COPD exacerbation (Acute) acute delerium (Acute) Decubitus ulcer (Acute) Pressure ulcer of sacral region, stage 4 (Acute) Skin necrosis (Acute) Type II diabetes mellitus (Acute) Urinary retention (Acute) Urge incontinence (Acute) Nocturia (Acute) Intertrochanteric fracture of left hip (Acute) Left humeral fracture (Resolved) 1. Debility: Going to care home facility for rehab and plans to return home. She has multiple comorbidities that are contributing. She is not very mobile at baseline. She lives at home with her . 2. Chronic pain: multiple issues, including healing humeral fracture. Oxycodone 10mg q4h PRN has been effective, recommend continuing this for now. We will f/u with pt at SNF. 3. Chronic sacral decubitus: Again, patient is immobile at baseline. She now has a wound VAC and will be going to the wound center for care. She can ambulate but with walker and 2 assist, which is a decline. 4. COPD/type II DM/CAD/gout/history of MRSA/neurogenic bladder/vitamin D deficiency/tobacco abuse/PVD s/p intervention: Complicates overall care, management, recovery, and prognosis. Defer management to PCP. Thank you for the opportunity to participate in this patient's care, please do not hesitate to contact palliative for any further questions or concerns. We will follow her as an outpatient when she is discharged to the [facility]. This note was generated with [employer] dictation software. It may contain incorrect words, spelling, and punctuation that were not noted in checking the note before signing.
--- NOTE | 2020-11-13 11:37 | PCM.TXEXTCAR ---
- Diet 11/08/20 15:45 Diet: Carbohydrate Controlled Type of Dietary Supplement:: Romie Is pt able to select menu?: No Diet Comments: Romie BID w/ lunch and dinner. Glucerna 240ml with breakfast - Routine Orders/Code Status Code Status: Full Code - Wound(s) buttox Wound Type: Pressure Injury coccyx Wound Type: Pressure Injury left heel Wound Type: Pressure Injury sacrum Wound Type: Pressure Injury Dressing Change: KCI wound VAC - Therapies Physical Therapy: Eval and Treat Occupational Therapy: Eval and Treat - Allergies/Procedures Done in Hospital Allergies/Adverse Reactions: Allergies amoxicillin [From Augmentin] Allergy (Verified 11/06/20 18:58) Rash atorvastatin [From Lipitor] Allergy (Verified 11/06/20 18:58) Other clavulanic acid [From Augmentin] Allergy (Verified 11/06/20 18:58) Rash gabapentin Allergy (Verified 11/06/20 18:58) Nausea quinapril [From Accupril] Allergy (Verified 11/06/20 18:58) Rash fluoxetine Adverse Reaction (Verified 11/06/20 18:58) Other Procedures: None - Type of Care/Length of Stay Estimated LOS: Convalescent Care Less Than 30 days Type of Care Needed: Skilled Rehab Potential: Fair Prognosis: Fair - Additional Orders/Day of Discharge Day of Discharge: 11/13/20 - Dietary and Speech Recommendations Dietitian Recommendations/Changes: Continue carbohydrate-controlled (no caloric restriction), glucerna shake w/ medpass, 240ml glucerna shake w/ breakfast and Romie BID w/ lunch and dinner. - Follow Up Care Primary Care Physician: Cabrera Taylor III, MD [Primary Care Provider] - Please follow up with your Primary Care Physician in: 3-5 days
--- NOTE | 2020-11-13 11:39 | PCM.DC.SUM ---
Discharge Date and Diagnosis - Problem List Patient Problems: Active and Suspected Problems (Last Updated 11/08/20 @ 11:[address] Riki Aguirre MD) Decubitus ulcer (Acute) Type II diabetes mellitus (Acute) Urinary retention (Acute) Date of Admission: 11/13/20 Date of Discharge: 11/13/20 - Primary Discharge Diagnosis Acute Problems: Active Problems (Last Updated 11/08/20 @ 11:[address] Riki Aguirre MD) Decubitus ulcer (Acute) Type II diabetes mellitus (Acute) Urinary retention (Acute) - Secondary Discharge Diagnosis Chronic Problems: Chronic Problems (Last Updated 11/08/20 @ 11:[address] Riki Aguirre MD) Ulcer of right lower leg (Chronic) Ulcer of right groin with fat layer exposed (Chronic) Wound of right lower extremity (Chronic) Right lower extremity with fat layer exposed Compression fracture (Chronic) Debility (Chronic) COPD (chronic obstructive pulmonary disease) (Chronic) Chronic respiratory failure with hypoxia (Chronic) Osteomyelitis of pelvic region (Chronic) History of stroke (Chronic) History of MRSA infection (Chronic) Chronic back pain (Chronic) Hx of tonsillectomy (Chronic) Hx of bladder repair surgery (Chronic) History of partial hysterectomy (Chronic) History of lumpectomy of right breast (Chronic) History of right-sided carotid endarterectomy (Chronic) 2009 Hx TIA/stroke w/o resid (Chronic) Diabetes (Chronic) Neurogenic bladder (Chronic) Neurogenic bladder (Chronic) HTN (hypertension) (Chronic) Chronic ulcer of left heel with fat layer exposed (Chronic) Decubitus ulcer of left heel, stage 4 (Chronic) PAD (peripheral artery disease) (Chronic) Tobacco abuse (Chronic) Hospital Course and Treatment Imaging Results: Clinical Impression(s) from Imaging Studies Shoulder X-Ray 11/07/20 08:13 IMPRESSION: Healing fracture of the surgical neck of the proximal left humerus. Residual deformity of the humerus persists. Electronically Signed: Erick Damico MD at 8:53 EST , Service support , Echo: Interpretation Summary The estimated ejection fraction is 55 %. No evidence for diastolic dysfunction. Normal RA size. Near the junction of the RA and ivc, close of the base of the tricuspid valve there is a mobile echodensity that could be thrombus, vegetation or mass. Contrast injection was performed. The study was technically difficult. Report of Operation Date of Procedure: 11/08/20 Pre-Operative Diagnosis: 1. Necrotic infected sacral pressure sore, Stage IV. 2. Clinical osteomyelitis. 3. Diabetes mellitus. 4. History of stroke with decreased ambulation. 5. Smoker. 6. History of MRSA. Post-Operative Diagnosis: Same. Surgery/Procedure Performed:: Excision necrotic infected sacral pressure sore, Stage IV, with partial ostectomy for osteomyelitis. Consultations 11/07/20 00:22 Consult: Onc/Wound/development rep Routine Comment: ID Cardiology General Surgery Operations: None Procedures: 2-D Echocardiogram Summary of Care Provided: Per HPI: The patient is a 70 y/o F w/ PMHx: CAD/PAD, Carotid diseas s/p R CEA, HTN, HLD, PVD, Diabetes mellitus type II, Neurogenic bladder, Chronic back pain, Hx TIA/CVA, history of chronic wounds including recent chronic buttock decubitus ulcer who presents to the [facility] ED on 11/06/20 with history of ongoing issues with her coccyx region with a wound which was initially present starting in September and is continued to progressively worsen despite wound care with notable onset foul odor and discharge without specifically associated fevers and chills prompting patient to present to the ED for evaluation. Patient has chronic lower extremity pain and discomfort as well as cramping and has been severely debilitated with decreased movement and poor offloading. Work-up in the ED included T 98.6, heart rate 111, BP 98/80, respiratory rate 13, initially 89% on room air with improvement to 98% on 3 L nasal cannula, CBC with WC 11.2, hemoglobin 14, platelet 502 with left shift, CMP with sodium 132, chloride 94, BUN/creatinine 9/0.34, lactic acid 0.9, culture x2 pending per ED, buttock decubitus ulcer Gram stain as well as wound culture pending. In the ED patient ministered ciprofloxacin, normal saline, fentanyl. Recent cultures from wound buttock 11/02/2020 with Morganella, E. coli, gram-negative lianne possibly Pseudomonas, gram-positive lianne with sensitivities both positive for ciprofloxacin as well as several other agents, resistant to Ancef, Unasyn, ampicillin. Hospital Course: 1. Infected decubitus ulcer of the coccyx stage IV with visible bone and osteomyelitis/[id number]-old female with extensive comorbidities presented to the hospital with worsening of her decubitus ulcer. That developed in September and has steadily worsened. She presented because of the foul odor that the family noticed. She was attempting to have care done at home but she is bedbound and difficult to maneuver and therefore her pressure ulcer worsen. Culture data was obtained demonstrating Morganella, E. coli, corynebacterium, and Enterococcus. Infectious disease evaluated her sensitivities and recommends vancomycin, cefepime, and Flagyl with a stop date of 12/20/2020. She does have a PICC line in place in her right upper extremity. We will continue with weekly labs per ID. She has a wound VAC in place after debridement by surgery and will continue to need wound care. She also has a history of chronic pain therefore her Percocets were changed to Oxy 10 milligrams every 4 p.o. as needed, in accordance with the wishes of palliative care which was consulted prior to discharge in anticipation of her going home. I discussed with her the plan for discharge today to the retirement facility and she expressed understanding of the risk and benefits of going and would like to go today. She is very hesitant about going to a retirement facility and would like to leave as quickly as possible. We will need to follow-up with infectious disease in about 2 to 3 weeks. 2. Peripheral artery disease, coronary artery disease, new onset paroxysmal A. fib, hypertension, hyperlipidemia, chronic hypoxic respiratory failure secondary to COPD, tobacco abuse are all chronic medical conditions which complicate her care. She did have an echo after she went into A. fib which demonstrated an EF of 55%. There was a possible thrombus or vegetation at the base of tricuspid valve therefore cardiology was consulted felt that it would be necessary to continue her on Eliquis, which she will be taking twice daily. They recommended a repeat echo in about 2 to 4 weeks to see if the echodensity persists at that time if it does a cardiac MRI may be necessary. Patient Problems: Active and Suspected Problems (Last Updated 11/08/20 @ 11:[address] Riki Aguirre MD) Decubitus ulcer (Acute) Type II diabetes mellitus (Acute) Urinary retention (Acute) - Physical Exam Vitals/I&O's: Vital Signs Temp Pulse Resp BP Pulse Ox 97.5 F L 80 15 126/91 H 94 11/13/20 08:59 11/13/20 10:51 11/13/20 08:59 11/13/20 08:59 11/13/20 08:59 Oxygen Flow Rate (L/min) 2 Oxygen Delivery Method Nasal Cannula Weight: 205 lb 11.06 oz Body Mass Index (BMI) 22.5 Finger Stick Blood Glucose 156 Intake and Output for Last 24 Hours 11/11/20 11/12/20 11/13/20 23:59 23:59 23:59 Intake Total 3597.25 / 3597.25 2708.75 / 2908.75 2275 / 2275 Output Total 3750 / 3750 2100 / 2550 2350 / 2350 Balance -152.75 / -152.75 608.75 / 358.75 -75 / -75 General: Alert, Oriented x3, No apparent distress HEENT: Atraumatic, PERRLA, EOMI, Normocephalic, - - Hard of hearing Oral: Moist Mucosa Neck: Supple, No JVD Lungs: Clear to auscultation, Normal air movement, No rhonchi, No wheeze, No rales Cardiovascular: Regular rate, Regular Rhythm, Normal S1, Normal S2, No murmurs Abdomen: Soft, Non Tender, Non-Distended, No Hepato-splenomegaly Extremities: No edema, Capillary Refill Less than 3 Seconds Skin: No rashes, Ulcer/ Wound - Stage IV decubitus ulcer over her coccyx. Bone visible Neurological: Neuro grossly intact, Sensory exam intact to light touch and pain Psych/Mental Status: Normal Affect, Appropriate Microbiology Past 72 Hours 11/13/20 09:40 Mucosa - Nose SARS-CoV-2 Antigen (Rapid) - Final 11/08/20 11:00 Tissue - Sacral Gram Stain - Final 11/08/20 11:00 Tissue - Sacral Wound Culture - Final Enterococcus avium Corynebacterium striatum Morganella morganii sp morgani 11/08/20 11:00 Tissue - Sacral Anaerobic Culture - Final Anaerobic cocci Porphyromonas species Clostridium group Bacteroides uniformis 11/08/20 11:00 Tissue - Bone Gram Stain - Final 11/08/20 11:00 Tissue - Bone Wound Culture - Final No growth aerobically. 11/08/20 11:00 Tissue - Bone Anaerobic Culture - Final No growth in 5 days. 11/07/20 13:00 Tissue - Sacral Gram Stain - Final 11/07/20 13:00 Tissue - Sacral Tissue Culture - Final Escherichia coli Morganella morganii sp morgani Corynebacterium striatum Corynebacterium amycolatum Enterococcus avium Enterococcus faecalis 11/07/20 13:00 Tissue - Sacral Anaerobic Culture - Final Anaerobic cocci Bacteroides uniformis Clostridium group Bacteroides vulgatus 11/06/20 20:18 Ulcer, Decubitus - Buttock Gram Stain - Final 11/06/20 20:18 Ulcer, Decubitus - Buttock Wound Culture - Final Morganella morganii sp morgani Escherichia coli Corynebacterium striatum 11/06/20 20:18 Ulcer, Decubitus - Buttock Anaerobic Culture - Final Anaerobic cocci Bacteroides ovatus Prevotella melaninogenica Clostridium group Fusobacterium varium 11/06/20 19:42 Blood Culture (Wb) - Right Wrist Blood Culture - Final No growth in 5 days. 11/06/20 19:40 Blood Culture (Wb) - Right Hand Blood Culture - Final No growth in 5 days. Laboratory Results 11/12/20 17:36: POC Glucose 78 11/12/20 21:13: POC Glucose 140 H 11/13/20 06:41: POC Glucose 109 Current Medications Acetaminophen (Acetaminophen 325 Mg Tablet) 650 mg PO Q6H PRN PRN PRN Reason: Pain Score 1-10/Temp > 100.7 F Last Admin: 11/11/20 17:16 Dose: 650 mg Documented by: Al Hydroxide/Mg Hydroxide (Mag Hydrox/Al Hydrox/Simeth 30 Ml Udc) 30 ml PO Q6H PRN PRN PRN Reason: Gastric Burning Albuterol Sulfate (Albuterol 2.5 Mg/3 Ml Vial.Neb.) 2.5 mg INHALATION Q2H PRN PRN PRN Reason: Dyspnea, wheezing Amlodipine Besylate (Amlodipine 10 Mg Tablet) 10 mg PO DAILY [facility] Last Admin: 11/13/20 09:03 Dose: 10 mg Documented by: Apixaban (Apixaban 5 Mg Tablet) 5 mg PO BID [facility] Last Admin: 11/13/20 09:01 Dose: 5 mg Documented by: Aspirin (Aspirin 81 Mg Tab.Chew) 81 mg PO DAILY@0800 [facility] Last Admin: 11/13/20 09:00 Dose: 81 mg Documented by: Cyclobenzaprine HCl (Cyclobenzaprine Hcl 10 Mg Tablet) 10 mg PO BID [facility] Last Admin: 11/13/20 09:01 Dose: 10 mg Documented by: Diazepam (Diazepam 5 Mg Tablet) 5 mg PO 4X/DAY PRN PRN PRN Reason: SPASMS Last Admin: 11/11/20 14:02 Dose: 5 mg Documented by: Docusate Sodium (Docusate Sodium 100 Mg Capsule) 100 mg PO BID [facility] Last Admin: 11/13/20 09:01 Dose: 100 mg Documented by: Guaifenesin (Guaifenesin 10 Ml Udc (200mg/10ml)) 20 ml PO Q4H PRN PRN PRN Reason: COUGH Hydralazine HCl (Hydralazine 20 Mg/Ml Vial) 10 mg IV Q4H PRN PRN PRN Reason: SBP > 160 Hydrochlorothiazide (Hydrochlorothiazide 12.5mg) 12.5 mg PO DAILY [facility] Last Admin: 11/13/20 09:01 Dose: 12.5 mg Documented by: Dextrose/Sodium Chloride (Dextrose 5%/0.9% Nacl) 1,000 mls @ 75 mls/hr IV .[id number] [facility] Last Admin: 11/13/20 01:59 Dose: 75 mls/hr Documented by: Sodium Chloride () 250 mls @ 15 mls/hr IV .[id number] PRN PRN Reason: Saline Flush Last Infusion: 11/11/20 06:09 Dose: Infused Documented by: Sodium Chloride () 250 mls @ 15 mls/hr IV .[id number] PRN PRN Reason: Additional IVPB Infusion Vancomycin IV Pharmacy to Dose (1 ea/ Sodium Chloride) 500 mls @ 250 mls/hr IV X1 PRN; Protocol PRN Reason: Rx to Dose Vancomycin HCl 1,250 mg/ (Sodium Chloride) 275 mls @ 167 mls/hr IV Q12H [facility] Last Infusion: 11/13/20 03:40 Dose: Infused Documented by: Cefepime HCl 2 gm/ Sodium (Chloride) 100 mls @ 200 mls/hr IV Q8 [facility] Last Infusion: 11/13/20 06:00 Dose: Infused Documented by: Insulin Human Lispro (Insulin Lispro 100 Unit/Ml Insuln.Pen) 0 unit SC ACHS [facility]; Protocol Last Admin: 11/13/20 11:33 Dose: Not Given Documented by: Lorazepam (Lorazepam 2 Mg/Ml Syringe) 0.5 mg IV Q6H PRN PRN PRN Reason: severe muscle cramps Losartan Potassium (Losartan Potassium 100 Mg Tablet) 100 mg PO DAILY [facility] Last Admin: 11/13/20 09:00 Dose: 100 mg Documented by: Magnesium Hydroxide (Magnesium Hydroxide 30 Ml Udc) 30 ml PO DAILY PRN PRN PRN Reason: Constipation Melatonin (Melatonin 3 Mg Tablet) 3 mg PO QHS PRN PRN PRN Reason: INSOMNIA Metronidazole (Metronidazole 500 Mg Tablet) 500 mg PO TID [facility] Last Admin: 11/13/20 05:18 Dose: 500 mg Documented by: Morphine Sulfate (Morphine 10 Mg/Ml Syringe) 6 mg IV Q3H PRN PRN PRN Reason: Pain Score 6-10 Nicotine (Nicotine 21 Mg Patch) 21 mg TD DAILY [facility] Last Admin: 11/13/20 09:03 Dose: Not Given Documented by: Nutritional Formula (Lactose Free) (Glucerna Shake 120 Ml Liquid) 120 ml PO TIDCM [facility] Last Admin: 11/13/20 11:33 Dose: 120 ml Documented by: Ondansetron HCl (Ondansetron 4 Mg/2 Ml Vial) 4 mg IV Q8H PRN PRN PRN Reason: NAUSEA/VOMITING Oxycodone HCl (Oxycodone 5 Mg Tablet) 10 mg PO Q4H PRN PRN PRN Reason: Pain Score 4-5 Last Admin: 11/13/20 09:01 Dose: 10 mg Documented by: Pantoprazole Sodium (Pantoprazole Sodium 40 Mg Tablet) 40 mg PO DAILY [facility] Last Admin: 11/13/20 09:00 Dose: 40 mg Documented by: Prochlorperazine Edisylate (Prochlorperazine 10 Mg/2 Ml Vial) 5 mg IV Q4H PRN PRN PRN Reason: Breakthrough nausea/vomiting Psyllium Hydrophilic Mucilloid (Psyllium 1 Packet) 1 packet PO DAILY PRN PRN PRN Reason: Constipation Rosuvastatin Calcium (Rosuvastatin Calcium 5 Mg Tablet) 5 mg PO QHS [facility] Last Admin: 11/12/20 21:18 Dose: 5 mg Documented by: Sodium Chloride (0.9% Saline Lock 10 Ml Syringe) 10 - 40 ml IV UD PRN PRN Reason: SALINE FLUSH Last Admin: 11/07/20 01:34 Dose: 10 ml Documented by: Sodium Chloride (0.9% Saline Lock 10 Ml Syringe) 10 - 40 ml IV UD PRN PRN Reason: SALINE FLUSH Throat Lozenges (Benzocaine/Menthol 1 Lozenge) 1 lozenge MUCOUS MEM Q2H PRN PRN PRN Reason: SORE THROAT Home Medications: Medications to take at Discharge Hydrochlorothiazide [Hctz] 12.5 mg PO DAILY 06/16/18 Losartan Potassium [Cozaar] 100 mg PO DAILY 06/16/18 Rosuvastatin Calcium 5 mg PO QHS 09/08/18 Clopidogrel Bisulfate [Plavix] 75 mg PO DAILY 02/12/19 metFORMIN (XR) [Glucophage Xr] 500 mg PO BID 04/30/20 Amlodipine [Norvasc] 10 mg PO DAILY 11/06/20 Aspirin [Aspirin, Baby] 81 mg PO DAILY@0800 11/06/20 Cyclobenzaprine HCl 10 mg PO BID 11/06/20 Docusate Sodium [Colace] 100 mg PO BID 11/06/20 Ipratropium/Albuterol Sulfate [Duoneb] 3 ml INHALATION Q4H.RT 11/06/20 Lansoprazole [Prevacid] 30 mg PO DAILY 11/06/20 Multivitamin with Minerals [Multiple Vitamin] 1 ea PO DAILY 11/06/20 Naproxen [Naprosyn] 500 mg PO BID PRN PRN 11/06/20 Cefepime HCl [Maxipime] 2 gm IV Q8 38 Days #114 vial 11/12/20 Vancomycin IV 1,250 mg IV Q12H 38 Days #76 vial 11/12/20 metroNIDAZOLE [Flagyl] 500 mg PO TID #120 tab 11/12/20 Apixaban [Eliquis] 5 mg PO BID #60 tablet 11/13/20 Nicotine [Nicoderm Cq] 21 mg TD DAILY #30 patch 11/13/20 Oxycodone [Oxyir] 10 mg PO Q4H PRN PRN 4 Days #20 tab 11/13/20 Following Prescriptions Were Given to Patient: Apixaban [Eliquis] 5 mg PO BID #60 tablet metroNIDAZOLE [Flagyl] 500 mg PO TID #120 tab Prescription Printed Cefepime HCl [Maxipime] 2 gm IV Q8 38 Days #114 vial Prescription Printed Nicotine [Nicoderm Cq] 21 mg TD DAILY #30 patch Oxycodone [Oxyir] 10 mg PO Q4H PRN PRN 4 Days #20 tab PRN Reason: Pain Score 4-10 Prescription Printed Vancomycin IV 1,250 mg IV Q12H 38 Days #76 vial Prescription Printed Primary Care Physician: Cabrera Taylor III, MD [Primary Care Provider] - Please follow up with your Primary Care Physician in: 3-5 days Please Follow Up With: Akshat Yousif MD When: 2-3 weeks Pending Tests Upon Discharge: Echo in 2-4 weeks will need to be ordered while at SNF Disposition: Residential facility Minutes spent on discharge:: 35 Patient Condition:: Stable Medical Necessity - Tobacco Use Smoking Status: Current every day smoker Tobacco Use: Cigarettes Meaningful Use Info Meaningful Use Diagnoses (Choose all that apply): None applicable Inpatient E&M: 08166 [facility]
[2020-11-13 11:41] LABS: Bedside Glucose 131 mg/dL (70-110)
--- NOTE | 2020-11-13 12:04 | PHA.DC.MR ---
Pharmacy Service has performed discharge medication reconciliation for this patient. The patient's discharge medication list was reviewed for discrepancies and discrepancies were resolved. Home Medications Hydrochlorothiazide [Hctz] 12.5 mg PO DAILY 06/16/18 Losartan Potassium [Cozaar] 100 mg PO DAILY 06/16/18 Rosuvastatin Calcium 5 mg PO QHS 09/08/18 Clopidogrel Bisulfate [Plavix] 75 mg PO DAILY 02/12/19 metFORMIN (XR) [Glucophage Xr] 500 mg PO BID 04/30/20 Amlodipine [Norvasc] 10 mg PO DAILY 11/06/20 Aspirin [Aspirin, Baby] 81 mg PO DAILY@0800 11/06/20 Cyclobenzaprine HCl 10 mg PO BID 11/06/20 Docusate Sodium [Colace] 100 mg PO BID 11/06/20 Ipratropium/Albuterol Sulfate [Duoneb] 3 ml INHALATION Q4H.RT 11/06/20 Lansoprazole [Prevacid] 30 mg PO DAILY 11/06/20 Multivitamin with Minerals [Multiple Vitamin] 1 ea PO DAILY 11/06/20 Naproxen [Naprosyn] 500 mg PO BID PRN PRN 11/06/20 Cefepime HCl [Maxipime] 2 gm IV Q8 38 Days #114 vial 11/12/20 Vancomycin IV 1,250 mg IV Q12H 38 Days #76 vial 11/12/20 metroNIDAZOLE [Flagyl] 500 mg PO TID #120 tab 11/12/20 Apixaban [Eliquis] 5 mg PO BID #60 tab 11/13/20 Nicotine [Nicoderm Cq] 21 mg TD DAILY #30 patch 11/13/20 Oxycodone [Oxyir] 10 mg PO Q4H PRN PRN 4 Days #20 tab 11/13/20
--- NOTE | 2020-11-13 12:05 | PCM.PN.SRG ---
Patient Problems: Active and Suspected Problems (Last Updated 11/08/20 @ 11:[address] Riki Aguirre MD) Decubitus ulcer (Acute) Type II diabetes mellitus (Acute) Urinary retention (Acute) Subjective: Postop #5 Patient states she wants to go home. - Physical Exam Vitals/I&O's: Vital Signs Temp Pulse Resp BP Pulse Ox 97.5 F L 80 15 126/91 H 94 11/13/20 08:59 11/13/20 10:51 11/13/20 08:59 11/13/20 08:59 11/13/20 08:59 Oxygen Flow Rate (L/min) 2 Oxygen Delivery Method Nasal Cannula Weight: 205 lb 11.06 oz Body Mass Index (BMI) 22.5 Finger Stick Blood Glucose 156 Intake and Output for Last 24 Hours 11/11/20 11/12/20 11/13/20 23:59 23:59 23:59 Intake Total 3597.25 / 3597.25 2708.75 / 2908.75 2275 / 2275 Output Total 3750 / 3750 2100 / 2550 2350 / 2350 Balance -152.75 / -152.75 608.75 / 358.75 -75 / -75 General: Alert, Cooperative HEENT: Atraumatic, - - Very hard of hearing Oral: Moist Mucosa Lungs: Normal air movement Cardiovascular: Regular rate Extremities: Capillary Refill Less than 3 Seconds Skin: Ulcer/ Wound - Sacral ulcer is stable. Wound VAC in place. Musculoskeletal: No Tenderness to Palpation of Joints or Extremities Neurological: Cranial nerves II-XII grossly intact Psych/Mental Status: Normal Affect, Appropriate Microbiology Past 72 Hours 11/13/20 09:40 Mucosa - Nose SARS-CoV-2 Antigen (Rapid) - Final 11/08/20 11:00 Tissue - Sacral Gram Stain - Final 11/08/20 11:00 Tissue - Sacral Wound Culture - Final Enterococcus avium Corynebacterium striatum Morganella morganii sp morgani 11/08/20 11:00 Tissue - Sacral Anaerobic Culture - Final Anaerobic cocci Porphyromonas species Clostridium group Bacteroides uniformis 11/08/20 11:00 Tissue - Bone Gram Stain - Final 11/08/20 11:00 Tissue - Bone Wound Culture - Final No growth aerobically. 11/08/20 11:00 Tissue - Bone Anaerobic Culture - Final No growth in 5 days. 11/07/20 13:00 Tissue - Sacral Gram Stain - Final 11/07/20 13:00 Tissue - Sacral Tissue Culture - Final Escherichia coli Morganella morganii sp morgani Corynebacterium striatum Corynebacterium amycolatum Enterococcus avium Enterococcus faecalis 11/07/20 13:00 Tissue - Sacral Anaerobic Culture - Final Anaerobic cocci Bacteroides uniformis Clostridium group Bacteroides vulgatus 11/06/20 20:18 Ulcer, Decubitus - Buttock Gram Stain - Final 11/06/20 20:18 Ulcer, Decubitus - Buttock Wound Culture - Final Morganella morganii sp morgani Escherichia coli Corynebacterium striatum 11/06/20 20:18 Ulcer, Decubitus - Buttock Anaerobic Culture - Final Anaerobic cocci Bacteroides ovatus Prevotella melaninogenica Clostridium group Fusobacterium varium 11/06/20 19:42 Blood Culture (Wb) - Right Wrist Blood Culture - Final No growth in 5 days. 11/06/20 19:40 Blood Culture (Wb) - Right Hand Blood Culture - Final No growth in 5 days. Laboratory Results 11/12/20 17:36: POC Glucose 78 11/12/20 21:13: POC Glucose 140 H 11/13/20 06:41: POC Glucose 109 11/13/20 11:32: POC Glucose 131 H Current Medications Acetaminophen (Acetaminophen 325 Mg Tablet) 650 mg PO Q6H PRN PRN PRN Reason: Pain Score 1-10/Temp > 100.7 F Last Admin: 11/11/20 17:16 Dose: 650 mg Documented by: Al Hydroxide/Mg Hydroxide (Mag Hydrox/Al Hydrox/Simeth 30 Ml Udc) 30 ml PO Q6H PRN PRN PRN Reason: Gastric Burning Albuterol Sulfate (Albuterol 2.5 Mg/3 Ml Vial.Neb.) 2.5 mg INHALATION Q2H PRN PRN PRN Reason: Dyspnea, wheezing Amlodipine Besylate (Amlodipine 10 Mg Tablet) 10 mg PO DAILY [facility] Last Admin: 11/13/20 09:03 Dose: 10 mg Documented by: Apixaban (Apixaban 5 Mg Tablet) 5 mg PO BID [facility] Last Admin: 11/13/20 09:01 Dose: 5 mg Documented by: Aspirin (Aspirin 81 Mg Tab.Chew) 81 mg PO DAILY@0800 [facility] Last Admin: 11/13/20 09:00 Dose: 81 mg Documented by: Cyclobenzaprine HCl (Cyclobenzaprine Hcl 10 Mg Tablet) 10 mg PO BID [facility] Last Admin: 11/13/20 09:01 Dose: 10 mg Documented by: Diazepam (Diazepam 5 Mg Tablet) 5 mg PO 4X/DAY PRN PRN PRN Reason: SPASMS Last Admin: 11/11/20 14:02 Dose: 5 mg Documented by: Docusate Sodium (Docusate Sodium 100 Mg Capsule) 100 mg PO BID [facility] Last Admin: 11/13/20 09:01 Dose: 100 mg Documented by: Guaifenesin (Guaifenesin 10 Ml Udc (200mg/10ml)) 20 ml PO Q4H PRN PRN PRN Reason: COUGH Hydralazine HCl (Hydralazine 20 Mg/Ml Vial) 10 mg IV Q4H PRN PRN PRN Reason: SBP > 160 Hydrochlorothiazide (Hydrochlorothiazide 12.5mg) 12.5 mg PO DAILY [facility] Last Admin: 11/13/20 09:01 Dose: 12.5 mg Documented by: Dextrose/Sodium Chloride (Dextrose 5%/0.9% Nacl) 1,000 mls @ 75 mls/hr IV .[id number] [facility] Last Admin: 11/13/20 01:59 Dose: 75 mls/hr Documented by: Sodium Chloride () 250 mls @ 15 mls/hr IV .[id number] PRN PRN Reason: Saline Flush Last Infusion: 11/11/20 06:09 Dose: Infused Documented by: Sodium Chloride () 250 mls @ 15 mls/hr IV .[id number] PRN PRN Reason: Additional IVPB Infusion Vancomycin IV Pharmacy to Dose (1 ea/ Sodium Chloride) 500 mls @ 250 mls/hr IV X1 PRN; Protocol PRN Reason: Rx to Dose Vancomycin HCl 1,250 mg/ (Sodium Chloride) 275 mls @ 167 mls/hr IV Q12H [facility] Last Infusion: 11/13/20 03:40 Dose: Infused Documented by: Cefepime HCl 2 gm/ Sodium (Chloride) 100 mls @ 200 mls/hr IV Q8 [facility] Last Infusion: 11/13/20 06:00 Dose: Infused Documented by: Insulin Human Lispro (Insulin Lispro 100 Unit/Ml Insuln.Pen) 0 unit SC ACHS [facility]; Protocol Last Admin: 11/13/20 11:33 Dose: Not Given Documented by: Lorazepam (Lorazepam 2 Mg/Ml Syringe) 0.5 mg IV Q6H PRN PRN PRN Reason: severe muscle cramps Losartan Potassium (Losartan Potassium 100 Mg Tablet) 100 mg PO DAILY [facility] Last Admin: 11/13/20 09:00 Dose: 100 mg Documented by: Magnesium Hydroxide (Magnesium Hydroxide 30 Ml Udc) 30 ml PO DAILY PRN PRN PRN Reason: Constipation Melatonin (Melatonin 3 Mg Tablet) 3 mg PO QHS PRN PRN PRN Reason: INSOMNIA Metronidazole (Metronidazole 500 Mg Tablet) 500 mg PO TID [facility] Last Admin: 11/13/20 05:18 Dose: 500 mg Documented by: Morphine Sulfate (Morphine 10 Mg/Ml Syringe) 6 mg IV Q3H PRN PRN PRN Reason: Pain Score 6-10 Nicotine (Nicotine 21 Mg Patch) 21 mg TD DAILY [facility] Last Admin: 11/13/20 09:03 Dose: Not Given Documented by: Nutritional Formula (Lactose Free) (Glucerna Shake 120 Ml Liquid) 120 ml PO TIDCM [facility] Last Admin: 11/13/20 11:33 Dose: 120 ml Documented by: Ondansetron HCl (Ondansetron 4 Mg/2 Ml Vial) 4 mg IV Q8H PRN PRN PRN Reason: NAUSEA/VOMITING Oxycodone HCl (Oxycodone 5 Mg Tablet) 10 mg PO Q4H PRN PRN PRN Reason: Pain Score 4-5 Last Admin: 11/13/20 09:01 Dose: 10 mg Documented by: Pantoprazole Sodium (Pantoprazole Sodium 40 Mg Tablet) 40 mg PO DAILY [facility] Last Admin: 11/13/20 09:00 Dose: 40 mg Documented by: Prochlorperazine Edisylate (Prochlorperazine 10 Mg/2 Ml Vial) 5 mg IV Q4H PRN PRN PRN Reason: Breakthrough nausea/vomiting Psyllium Hydrophilic Mucilloid (Psyllium 1 Packet) 1 packet PO DAILY PRN PRN PRN Reason: Constipation Rosuvastatin Calcium (Rosuvastatin Calcium 5 Mg Tablet) 5 mg PO QHS [facility] Last Admin: 11/12/20 21:18 Dose: 5 mg Documented by: Sodium Chloride (0.9% Saline Lock 10 Ml Syringe) 10 - 40 ml IV UD PRN PRN Reason: SALINE FLUSH Last Admin: 11/07/20 01:34 Dose: 10 ml Documented by: Sodium Chloride (0.9% Saline Lock 10 Ml Syringe) 10 - 40 ml IV UD PRN PRN Reason: SALINE FLUSH Throat Lozenges (Benzocaine/Menthol 1 Lozenge) 1 lozenge MUCOUS MEM Q2H PRN PRN PRN Reason: SORE THROAT Medical Necessity - Tobacco Use Smoking Status: Current every day smoker Tobacco Use: Cigarettes Assessment/Plan All Active Problems (Last Updated 11/08/20 @ 11:[address] Riki Aguirre MD) Ischemia of right lower extremity (Acute) Injury of right common femoral artery (Acute) Postoperative wound dehiscence (Acute) COPD exacerbation (Acute) acute delerium (Acute) Decubitus ulcer (Acute) Pressure ulcer of sacral region, stage 4 (Acute) Skin necrosis (Acute) Type II diabetes mellitus (Acute) Urinary retention (Acute) Urge incontinence (Acute) Nocturia (Acute) Intertrochanteric fracture of left hip (Acute) Left humeral fracture (Resolved) 1. Necrotic infected sacral pressure sore, Stage IV. 2. Clinical osteomyelitis. 3. Diabetes mellitus. 4. History of stroke with decreased ambulation. 5. Smoker. 6. History of MRSA. VAC in place. Minimal drainage in the canister. Operative wound cultures show Enterococcus avium, Morganella morganii, Corynebacterium striatum, Anaerobic cocci, Porphyromonas species, Clostridium group and Bacteroides uniformis. She is currently on Vancomycin, Cefepime, and Flagyl. ID is managing antibiotics. Prealbumin was 7.2. Encourage nutritional supplementation with protein to help the healing process. HgbA1c was 5.4. She states her pain is controlled. Encouraged patient to stop smoking as it may have deleterious effects on wound healing. She is going to be transferred to the [facility] today. After discharge from the [facility], she can followup at the [facility].
--- NOTE | 2020-11-13 12:18 | CASEMGMT ---
Patient was approved to go to [facility]. CHRISSY notified physician. CHRISSY faxed orders and today's negative COVID test to [facility]. Completed convalescent on HENS. CHRISSY arranged for patient to get picked up at 1400 via cot. CHRISSY notified RN, patient's daughter, administrative secretary, and Beckie at [facility]. CHRISSY will notify patient and leave a list of home health care agencies in the room per patient's daughter's request. Plan: d/c to [facility] at [place] under skilled level of care on a convalescent stay. [facility] transported her via cot. Georgie GORDON LINE SERVICER
--- NOTE | 2020-11-13 12:22 | CASEMGMT ---
SW went to patient's room to let her know about waste picker. She was sleeping and did not wake easily to SW tapping her arm. SW let the list of home health agencies in patient's room. Georgie GORDON MSW
--- NOTE | 2020-11-13 12:27 | CASEMGMT ---
SW did also call Emilie Mcleod with [facility] and let her know patient is going to [facility] today. Georgie GORDON MSW
--- NOTE | 2020-11-13 13:07 | NURSING ---
wound VAC dressing removed since patient is being discharged to the residential. a NS wet to dry dressing was applied and the wound VAC will be applied once patient gets to the residential. pt tolerated well. pt aware she is being picked up at 2pm today.
--- NOTE | 2020-11-13 16:21 | NURSING ---
LURDES SUAZO RN REPORT CALLED TO [facility]
== END 2020-11-13 16:27 | disposition skilled nursing facility (03) | DRG 580 ==
LOC: ED 22:28 → MS3 23:29 → PCU 11-09 07:21
PROVIDERS: Anesthesiology; Internal Medicine Infectious Disease; Nurse Practitioner Family; Student in an Organized Health Care Education/Training Program; Surgery; Admitting Provider Family Medicine; Emergency Provider Emergency Medicine; PCP Family Medicine; Visit Provider Family Medicine
PROC: 0QB10ZZ Excision of Sacrum, Open Approach (ICD-10-PCS; CPT 15999; principal; 2020-11-08 10:10)
DX: L89.154 Pressure ulcer of sacral region, stage 4 (principal); S42.212A Unspecified displaced fracture of surgical neck of left humerus, initial encounter for closed fracture; J96.11 Chronic respiratory failure with hypoxia; E11.52 Type 2 diabetes mellitus with diabetic peripheral angiopathy with gangrene; J44.1 Chronic obstructive pulmonary disease with (acute) exacerbation; M46.28 Osteomyelitis of vertebra, sacral and sacrococcygeal region; Z16.11 Resistance to penicillins; Z16.19 Resistance to other specified beta lactam antibiotics; E44.0 Moderate protein-calorie malnutrition; I10 Essential (primary) hypertension; Z86.73 Personal history of transient ischemic attack (TIA), and cerebral infarction without residual deficits; N31.9 Neuromuscular dysfunction of bladder, unspecified; F17.210 Nicotine dependence, cigarettes, uncomplicated; E78.5 Hyperlipidemia, unspecified; E11.40 Type 2 diabetes mellitus with diabetic neuropathy, unspecified; I48.0 Paroxysmal atrial fibrillation; B96.5 Pseudomonas (aeruginosa) (mallei) (pseudomallei) as the cause of diseases classified elsewhere; H91.90 Unspecified hearing loss, unspecified ear; E11.69 Type 2 diabetes mellitus with other specified complication; G89.29 Other chronic pain; R33.9 Retention of urine, unspecified; L89.624 Pressure ulcer of left heel, stage 4; B96.20 Unspecified Escherichia coli [E. coli] as the cause of diseases classified elsewhere; I25.10 Atherosclerotic heart disease of native coronary artery without angina pectoris; N39.41 Urge incontinence; B96.4 Proteus (mirabilis) (morganii) as the cause of diseases classified elsewhere; B95.2 Enterococcus as the cause of diseases classified elsewhere; F41.9 Anxiety disorder, unspecified; Z99.81 Dependence on supplemental oxygen; Z86.14 Personal history of Methicillin resistant Staphylococcus aureus infection; X58.XXXA Exposure to other specified factors, initial encounter; Y93.9 Activity, unspecified; Y92.9 Unspecified place or not applicable; Y99.9 Unspecified external cause status; Z74.01 Bed confinement status; Z68.24 Body mass index [BMI] 24.0-24.9, adult
CPT/HCPCS: 36415; 36569; 73030; 80048; 80053; 80076; 80202; 82962; 83036; 83605; 83735; 84134; 84484; 85025; 87040; 87070; 87075; 87077; 87102; 87176; 87186; 87205; 87206; 87426; 87640; 88304; 88305; 88311; 88312; 93005; 93306; 94640; 97110; 97162; 97166; 97530; 97535; 97802; 99284; 99406; J2185; J7030; J7040; J7050; Q9957; A4216; C8929; J0744; J2405

== ENCOUNTER 2020-12-03 12:54 | Outpatient (RCR) | payer MEDICARE, MEDICAID, SELFPAY ==
[2020-11-08 08:47] VITALS: BMI 22.5
[2020-12-03 13:01] VITALS: BMI 22.5
--- NOTE | 2020-12-03 13:15 | WC ---
LIMITED INITIAL ASSESSMENT COMPLETED. PT W/ HEARING DEFICIT AND RESISTANT TO CARE.
--- NOTE | 2020-12-03 15:40 | PN.PCM_ITS ---
(1) Pressure ulcer of sacral region, stage 4 Status: Chronic Code(s): L89.154 - Pressure ulcer of sacral region, stage 4 (2) Type II diabetes mellitus Status: Chronic Code(s): E11.9 - Type 2 diabetes mellitus without complications (3) Debility Status: Chronic Code(s): R53.81 - Other malaise (4) History of stroke Status: Chronic Code(s): Z86.73 - Personal history of transient ischemic attack (TIA), and cerebral infarction without residual deficits (5) Tobacco abuse Status: Chronic Code(s): Z72.0 - Tobacco use Type of Wound Date of Service: 12/03/20 Chief Complaint: Sacral ulcer, Stage IV History of Wound: The patient is a 70 y/o F with a history of stroke and diabetes mellitus presents with worsening necrotic infected sacral pressure sore. The pressure sore started in September. There was increasing drainage and odor. In the ED, WBC was 11.1. Lactate was 0.9. She had recent wound culture done on 11/02/20. It showed E. coli, Morganella morganii, Pseudomonas aeroginosa, and Actinomyces odontolyticus. She was placed on Ciprofloxacin and failed outpatient therapy. She was admitted and initially the Cipro was continued IV. Her antibiotics have been changed to Meropenem. She had a CT Pelvis done on 10/18/20. It showed no demonstrated cortical erosion or bony destruction or periosteal. reaction to indicate active osteomyelitis of the lower coccygeal vertebra. The overlying soft tissues are mildly thickened/edematous possibly due to. cellulitis or pressure wound. No abscess is seen. Large amount of stool throughout the colon. Minor colonic diverticulosis. Because of the odor, wound care was started with Dakin's dressing changes. I was asked to evaluate this patient for surgical options for treatment. Her last HgbA1c from [facility] was 6.9 on 12/23/18. Surgery 11/08/20 - 1. Necrotic infected sacral pressure sore, Stage IV. 2. Clinical osteomyelitis. 3. Diabetes mellitus. 4. History of stroke with decreased ambulation. 5. Smoker. 6. History of MRSA. Operative tissue cultures positive for Enterococcus avium, Corynebacterium striatum, Morganella morganii, Anaerobic cocci, Porphyromonas species, Clostridium group and Bacteroides uniformis. Operative bone culture was negative. ID is consulted. She [facility]com[facility] Wound care - Dakin's dressing changes daily. (Wound VAC stopped due to the excoriated mirlande wound area). Will start Lotrison cream twice daily x 7 days. This rash looks like it is fungal in nature. Today she denies fever. She is receiving protein supplementation [facility] the [facility]. Progress of Wound: Stable. - Physical Exam General: Alert, Oriented x3, Cooperative HEENT: Atraumatic Oral: Moist Mucosa Lungs: Normal air movement Cardiovascular: Regular rate Extremities: Capillary Refill Less than 3 Seconds Skin: Ulcer/ Wound - Sacral ulcer with bone exposure is stable. Wound Measurements and Assessment WC - Nurse 1 - General Ulcer Measurement Start: 12/03/20 12:58 Freq: Status: Active Protocol: Activity Type Activity Date Activity User E-Sign Co-Sign Detail Recorded Client Recorded Date Recorded By Document 12/03/20 13:01 [facility] [id number] 12/03/20 13:15 [facility] 12/03/20 13:01 [facility] Nurse 1 [Ulcer Assessment] #4- SACRAL -Combined with other wound No -Current Size (cm) - Length 11 -Current Size (cm) - Width 7.9 -Current Size (cm) - Depth 3.5 -Total Square Cm 86.9 -Date of Last Picture (Recall this 12/03/20 field) -Photo Taken Yes -Epithelialization None Present -Tunneling No -Undermining/Tunneling No -Circular Undermining No -Exudate Amt Large -Exudate Type Serosanguineous -Wound Margin Distinct, Outline Attached -Granulation Amt Medium (34-66%) -Granulation Quality Red -Slough/Fibrin Yes -Necrosis Amt Medium (34-66%) -Necrotic Tissue Type Adherent Slough -Texture (Mirlande-wound Skin Appearance) Assessed, Scarring,Rash -Moisture (Mirlande-wound Skin Appearance Assessed ) -Color (Mirlande-wound Skin Appearance) Assessed, Erythema -Temperature (Mirlande-wound Skin No Abnormality Appearance) (Pt Warm) -Tenderness on Palpation (Mirlande-wound Yes Skin Appearance) -Ulcer Cleansing SOAPY WATER -Anesthetic Used 4% Lidocaine Solution, Cetacaine ARIADNA - Nurse 2 - General Ulcer CM Notes Start: 12/03/20 12:58 Freq: Status: Active Protocol: Activity Type Activity Date Activity User E-Sign Co-Sign Detail Recorded Client Recorded Date Recorded By Document 12/03/20 13:48 [id number] 12/03/20 13:55 12/03/20 13:48 Wound Center Nurse 2 [Procedure/Treatment] -Time 13:48 -Correct Patient Yes -Correct Side, Site, Position Yes -Correct Procedure Yes -Procedure Performed Yes -Type of Procedure Debridement -Clinical Debridement Muscle / Fascia -Tissue Removed Muscle -Post Debridement (cm) - Length 11 -Post Debridement (cm) - Width 9 -Post Debridement (cm) - Depth 3.9 -Total Square (Post) (cm) 99 -Area of Debridement (cm) - Length 11 -Area of Debridement (cm) - Width 9 -Total Square (Area) (cm) 99 -Tunneling No -Undermining/Tunneling No -Circular Undermining No -Wound/Ulcer Outcome Not Healed -Ulcer Cleansing Rinsed/ Irrigated with Saline -Foul Odor after Cleansing No -Bioengineered Tissue No -Bleeding Controlled with Pressure -Offloading No -Treatment Response Procedure Tolerated Well -Debridement - Muscle / Fascia, 1st Yes 20sq cm -Debridement, Muscle/Fascia, ea addt' 4 l 20sq cm or part thereof [See Physician Procedure note for Specifics] Pain Scale: 0-10 Numeric [Pain] -Is Patient Pain Free? Yes - Nurse 3 - General Ulcer D/C NN Start: 12/03/20 12:58 Freq: Status: Active Protocol: Activity Type Activity Date Activity User E-Sign Co-Sign Detail Recorded Client Recorded Date Recorded By Document 12/03/20 14:17 [facility] [id number] 12/03/20 14:18 [facility] 12/03/20 14:17 Wound Care Nurse 3 [Wound Dressing] #4- SACRAL -Ulcer Cleansing Rinsed/ Irrigated with Saline -Foul Odor after Cleansing No -Primary Dressing Applied Other -Other Dressing moist to dry -Primary Dressing Covered/Secured Dry Gauze, with Secured with Tape,Other -Other Covering abd [Post Procedure Tolerated] -Treatment Response Procedure Not Tolerated Well Pain Scale: Spaulding/Aggarwal Faces [Pain] -Is Patient Pain Free? No - Visit Discharge [Visit Discharge Information] -Discharge Condition Stable -Ambulatory Status Stretcher -Transportation Ambulance -Accompanied by daughter, caregiver [Facility Notification] -Facility Type Teacher Assistant Care Facility Musculoskeletal: Tenderness Neurological: Cranial nerves II-XII grossly intact Psych/Mental Status: Normal Affect, Appropriate Debridement Note Post-Debridement Measurements/Treatment - Nurse 2 - General Ulcer CM Notes Start: 12/03/20 12:58 Freq: Status: Active Protocol: Activity Type Activity Date Activity User E-Sign Co-Sign Detail Recorded Client Recorded Date Recorded By Document 12/03/20 13:48 [id number] 12/03/20 13:55 12/03/20 13:48 Wound Center Nurse 2 #4- SACRAL -Time 13:48 -Correct Patient Yes -Correct Side, Site, Position Yes -Correct Procedure Yes -Procedure Performed Yes -Type of Procedure Debridement -Clinical Debridement Muscle / Fascia -Tissue Removed Muscle -Post Debridement (cm) - Length 11 -Post Debridement (cm) - Width 9 -Post Debridement (cm) - Depth 3.9 -Total Square (Post) (cm) 99 -Area of Debridement (cm) - Length 11 -Area of Debridement (cm) - Width 9 -Total Square (Area) (cm) 99 -Tunneling No -Undermining/Tunneling No -Circular Undermining No -Wound/Ulcer Outcome Not Healed -Ulcer Cleansing Rinsed/ Irrigated with Saline -Foul Odor after Cleansing No -Bioengineered Tissue No -Bleeding Controlled with Pressure -Offloading No -Treatment Response Procedure Tolerated Well -Debridement - Muscle / Fascia, 1st Yes 20sq cm -Debridement, Muscle/Fascia, ea addt'l 4 20sq cm or part thereof Pain Scale: 0-10 Numeric Is Patient Pain Free? Yes - Nurse 3 - General Ulcer D/C NN Start: 12/03/20 12:58 Freq: Status: Active Protocol: Activity Type Activity Date Activity User E-Sign Co-Sign Detail Recorded Client Recorded Date Recorded By Document 12/03/20 14:17 [facility] [id number] 12/03/20 14:18 [facility] 12/03/20 14:17 Wound Care Nurse 3 #4- SACRAL -Ulcer Cleansing Rinsed/ Irrigated with Saline -Foul Odor after Cleansing No -Primary Dressing Applied Other -Other Dressing moist to dry -Primary Dressing Covered/Secured with Dry Gauze, Secured with Tape,Other -Other Covering abd Treatment Response Procedure Not Tolerated Well Pain Scale: Spaulding/Aggarwal Faces Is Patient Pain Free? No WC - Visit Discharge Discharge Condition Stable Ambulatory Status Stretcher Transportation Ambulance Accompanied by daughter, caregiver Facility Type Teacher Assistant Care Facility Wound debrided: Sacral ulcer Type of Debridement: Excisional debridement Anesthesia Used: 5% Lidocaine Gel Depth: Down to and including healthy tissue, in the subcutaneous layer Percentage of wound debrided: 100 Instrument Used: 7mm curette Tissue Removed: Subcutaneous tissue and slough into the muscle with bone exposure Severity: Fat Layer Exposed Amount of bleeding with debridement: Mild Bleeding Controlled with: Pressure, Compression and gauze Patient tolerated procedure well Assessment/Plan Active Problems (Last Updated 11/08/20 @ 11:[address] Riki Aguirre MD) Debility (Chronic) Pressure ulcer of sacral region, stage 4 (Chronic) History of stroke (Chronic) Type II diabetes mellitus (Chronic) Tobacco abuse (Chronic) Assessment: 1. Pressure ulcer of sacral region, stage 4. 2. Type II diabetes mellitus. 3. Debility. 4. History of stroke. 5. Tobacco abuse Plan: Wound care - Dakin's dressing changes daily. (Wound VAC stopped due to the excoriated mirlande wound area). Will start Lotrison cream twice daily x 7 days. This rash looks like it is fungal in nature. [facility] me on Thursday and if her periwound is much improved, then she have the wound VAC restarted then. Operative tissue cultures positive for Enterococcus avium, Corynebacterium striatum, Morganella morganii, Anaerobic cocci, Porphyromonas species, Clostridium group and Bacteroides uniformis. Operative bone culture was negative. ID is consulted. She is receiving Vancomycin and Cefapine [facility]. Encouraged to stop smoking as it may be deletarious to wound healing. Encouraged protein supplementation. Follow up 2 weeks. [id number]: [id number] Global Visit
== END 2020-12-12 23:59 ==
LOC: WC 12:54
PROVIDERS: PCP Family Medicine; Visit Provider Nurse Practitioner Family
DX: L89.154 Pressure ulcer of sacral region, stage 4 (principal); Z86.73 Personal history of transient ischemic attack (TIA), and cerebral infarction without residual deficits; E11.9 Type 2 diabetes mellitus without complications; Z72.0 Tobacco use; Z86.14 Personal history of Methicillin resistant Staphylococcus aureus infection; R21 Rash and other nonspecific skin eruption
CPT/HCPCS: 11043; 11046; 99213; G0463

== ENCOUNTER → 2020-12-12 14:26 | Outpatient (CLI) | payer MEDICARE, MEDICAID, SELFPAY ==
[2020-11-08 08:47] VITALS: BMI 22.5
[2020-12-03 13:01] VITALS: BMI 22.5
--- NOTE | 2020-12-12 14:31 | ECHOCS_ITS ---
Reason For Study: Mural Thrombus of Heart Procedure This was a 2D Doppler, Color Flow transthoracic echocardiogram. Technically difficult study. Pt lying in right decubitus position and poor acoustic windows. Contrast injectino performed. The study was technically difficult. Contrast injection was performed. Exam performed in department. Left Ventricle Normal LV size. Left ventricular systolic function is normal. The estimated ejection fraction is 65 %. Diastolic function is indeterminate. No regional wall motion abnormalities noted. Right Ventricle Normal RV size. Normal systolic function. Atria Normal left atrium. Normal right atrium. No doppler evidence for ASD. Mitral Valve There is no mitral annular calcification. Normal mitral valve. Trivial mitral valve insufficiency. Tricuspid Valve Normal tricuspid valve. Trivial tricuspid valve insufficiency. Unable to estimate RV systolic pressure/pulmonary artery pressure due to technically difficult study. Aortic Valve The aortic valve is not well visualized. Pulmonic Valve The pulmonic valve is not well visualized. Great Vessels The aortic root is not well visualized. Pericardium/Pleural No pericardial effusion. Medication Patient had PICC line in place on right arm. Diluted definity 3ml given slow IV push to enhance endocardial definition. MMode/2D Measurements & Calculations LAV(MOD-sp4): 34.5 ml LA A4 area: 14.5 cm2 RA A4 area: 13.6 cm2 Time Measurements MV dec time: 0.28 sec Doppler Measurements & Calculations MV E max beck: 65.3 cm/sec Lat Peak E' Beck: 8.5 cm/sec Med Peak E' Beck: 6.3 cm/sec MV A max beck: 105.9 cm/sec E/E' lat: 7.7 E/E' med: 10.4 MV E/A: 0.62 Ao V2 max: 86.1 cm/sec LV V1 max: 81.1 cm/sec PA V2 max: 77.9 cm/sec Ao max P.0 mmHg LV V1 max P.6 mmHg ECHO/Echo Complete W/ Contrast Interpretation Summary The study was technically difficult. Contrast injection was performed. Left ventricular systolic function is normal. The estimated ejection fraction is 65 %. Trivial mitral valve insufficiency. Trivial tricuspid valve insufficiency. Unable to estimate RV systolic pressure/pulmonary artery pressure due to techni mansi difficult study. Diastolic function is indeterminate. Comment: 2D echocardiographic images demonstrate a vague mobile echodensity robby r the base of the tricuspid valve apparatus of uncertain etiology with differential diagnosis inc luding echocardiographic reverberation/artifact however other etiologies of mobile mas s lesions cannot necessarily be excluded-consider further evaluation with transesophageal echoca rdiogram or cardiac MRI as clinically indicated. Ordering Physician: Tawanda Upton Referring Physician: GOMEZ Taylor M.D. Performed By: Genaro Sanchez RCS
== END ==
PROVIDERS: PCP Family Medicine; Referring Provider Internal Medicine Cardiovascular Disease; Visit Provider Internal Medicine Cardiovascular Disease
DX: I11.0 Hypertensive heart disease with heart failure (principal); I51.3 Intracardiac thrombosis, not elsewhere classified; I73.9 Peripheral vascular disease, unspecified; Z86.73 Personal history of transient ischemic attack (TIA), and cerebral infarction without residual deficits
CPT/HCPCS: 93306; Q9957; A4216; C8929

== ENCOUNTER 2021-01-07 09:45 | Outpatient (RCR) | payer MEDICARE, MEDICAID, SELFPAY ==
[2020-12-17 09:50] VITALS: BP 165/66; PULSE 103; RESP 20; TEMP 36.6; BMI 22.5
--- NOTE | 2020-12-17 11:11 | PCM.WC.PN ---
(1) Pressure ulcer of sacral region, stage 4 Status: Chronic Code(s): L89.154 - Pressure ulcer of sacral region, stage 4 (2) Type II diabetes mellitus Status: Chronic Code(s): E11.9 - Type 2 diabetes mellitus without complications (3) Debility Status: Chronic Code(s): R53.81 - Other malaise (4) Tobacco abuse Status: Chronic Code(s): Z72.0 - Tobacco use Type of Wound Date of Service: 12/17/20 Chief Complaint: Sacral ulcer, Stage IV History of Wound: The patient is a 70 y/o F with a history of stroke and diabetes mellitus presents with worsening necrotic infected sacral pressure sore. The pressure sore started in September. There was increasing drainage and odor. In the ED, WBC was 11.1. Lactate was 0.9. She had recent wound culture done on 11/02/20. It showed E. coli, Morganella morganii, Pseudomonas aeroginosa, and Actinomyces odontolyticus. She was placed on Ciprofloxacin and failed outpatient therapy. She was admitted and initially the Cipro was continued IV. Her antibiotics have been changed to Meropenem. She had a CT Pelvis done on 10/18/20. It showed no demonstrated cortical erosion or bony destruction or periosteal. reaction to indicate active osteomyelitis of the lower coccygeal vertebra. The overlying soft tissues are mildly thickened/edematous possibly due to. cellulitis or pressure wound. No abscess is seen. Large amount of stool throughout the colon. Minor colonic diverticulosis. Because of the odor, wound care was started with Dakin's dressing changes. I was asked to evaluate this patient for surgical options for treatment. Her last HgbA1c from [facility] was 6.9 on 12/23/18. Surgery 11/08/20 - 1. Necrotic infected sacral pressure sore, Stage IV. 2. Clinical osteomyelitis. 3. Diabetes mellitus. 4. History of stroke with decreased ambulation. 5. Smoker. 6. History of MRSA. Operative tissue cultures positive for Enterococcus avium, Corynebacterium striatum, Morganella morganii, Anaerobic cocci, Porphyromonas species, Clostridium group and Bacteroides uniformis. Operative bone culture was negative. ID is consulted. She is receiving Vancomycin and Cefapine [facility] the [facility]. Wound care -wound VAC to 150 mmHg. Periwound is excoriated most likely from the wound VAC ape. Will discontinue wound VAC. Will do daily Dakin's moistened gauze covered by ABD. Today she denies fever. She is receiving protein supplementation at the custodial. Progress of Wound: Stable. - Physical Exam Vital Signs Temp Pulse Resp BP 97.8 F 103 H 20 H 165/66 H 12/17/20 09:50 12/17/20 09:50 12/17/20 09:50 12/17/20 09:50 General: Alert, Oriented x3, Cooperative HEENT: Atraumatic, - - Extremely hard of hearing Oral: Moist Mucosa Lungs: Normal air movement Cardiovascular: Regular rate Extremities: Capillary Refill Less than 3 Seconds Skin: Ulcer/ Wound - Sacral ulcer is beefy pink in color. Periwound is very excoriated. This most likely from the drape from the wound VAC. Wound Measurements and Assessment WC - Nurse 1 - General Ulcer Measurement Start: 12/17/20 09:50 Freq: Status: Active Protocol: Activity Type Activity Date Activity User E-Sign Co-Sign Detail Recorded Client Recorded Date Recorded By Document 12/17/20 09:50 DL [id number] 12/17/20 10:03 DL 12/17/20 09:50 Wound Center Nurse 1 [Ulcer Assessment] #4- SACRAL -Current Size (cm) - Length 11.2 -Current Size (cm) - Width 5 -Current Size (cm) - Depth 3.2 -Total Square Cm 56.0 -Photo Taken No -Maximum Distance #2 (cm) 2.5 -Circular Undermining Yes -Exudate Amt Medium -Exudate Type Serosanguineous -Wound Margin Distinct, Outline Attached -Granulation Amt Medium (34-66%) -Granulation Quality Red -Necrosis Amt Medium (34-66%) -Necrotic Tissue Type Adherent Slough -Structure Exposed N/A -Texture (Mirlande-wound Skin Appearance) Scarring,Rash -Color (Milrande-wound Skin Appearance) Erythema -Temperature (Mirlande-wound Skin No Abnormality Appearance) (Pt Warm) -Tenderness on Palpation (Mirlande-wound No Skin Appearance) -Anesthetic Used 4% Lidocaine Solution WC - Nurse 2 - General Ulcer CM Notes Start: 12/17/20 09:50 Freq: Status: Active Protocol: Activity Type Activity Date Activity User E-Sign Co-Sign Detail Recorded Client Recorded Date Recorded By Document 12/17/20 10:24 JULIO C [id number] 12/17/20 10:26 JULIO C 12/17/20 10:24 Wound Center Nurse 2 [Procedure/Treatment] -Time 10:24 -Correct Patient Yes -Correct Side, Site, Position Yes -Correct Procedure Yes -Procedure Performed Yes -Type of Procedure Debridement -Clinical Debridement Muscle / Fascia -Tissue Removed Muscle -Post Debridement (cm) - Length 11 -Post Debridement (cm) - Width 7.5 -Post Debridement (cm) - Depth 2.8 -Total Square (Post) (cm) 82.5 -Area of Debridement (cm) - Length 11 -Area of Debridement (cm) - Width 7.5 -Total Square (Area) (cm) 82.5 -Tunneling No -Undermining/Tunneling No -Circular Undermining No -Wound/Ulcer Outcome Not Healed -Ulcer Cleansing Rinsed/ Irrigated with Saline -Foul Odor after Cleansing No -Bioengineered Tissue No -Bleeding Controlled with Pressure -Offloading No -Treatment Response Procedure Tolerated Well -Debridement - Muscle / Fascia, 1st Yes 20sq cm -Debridement, Muscle/Fascia, ea addt' 4 l 20sq cm or part thereof [See Physician Procedure note for Specifics] Pain Scale: 0-10 Numeric [Pain] -Is Patient Pain Free? Yes - Nurse 3 - General Ulcer D/C NN Start: 12/17/20 09:50 Freq: Status: Active Protocol: Activity Type Activity Date Activity User E-Sign Co-Sign Detail Recorded Client Recorded Date Recorded By Document 12/17/20 10:31 [facility] [id number] 12/17/20 10:32 [facility] 12/17/20 10:31 Wound Care Nurse 3 [Wound Dressing] #4- SACRAL -Ulcer Cleansing Rinsed/ Irrigated with Saline -Foul Odor after Cleansing No -Primary Dressing Applied Aquacel AG 4x4 -Primary Dressing Covered/Secured Dry Gauze, with Secured with Tape,Other -Other Covering abd -Aquacel AG 4x4 1 [Post Procedure Tolerated] -Treatment Response Procedure Tolerated Well Pain Scale: 0-10 Numeric [Pain] -Is Patient Pain Free? Yes - Visit Discharge [Visit Discharge Information] -Discharge Condition Stable -Ambulatory Status Stretcher -Transportation Ambulance [Facility Notification] -Facility Type Skilled Nursing Care Facility Musculoskeletal: No Tenderness to Palpation of Joints or Extremities Neurological: Neuro grossly intact Psych/Mental Status: Normal Affect, Appropriate Debridement Note Post-Debridement Measurements/Treatment WC - Nurse 2 - General Ulcer CM Notes Start: 12/17/20 09:50 Freq: Status: Active Protocol: Activity Type Activity Date Activity User E-Sign Co-Sign Detail Recorded Client Recorded Date Recorded By Document 12/17/20 10:24 JULIO C [id number] 12/17/20 10:26 JULIO C 12/17/20 10:24 Wound Center Nurse 2 #4- SACRAL -Time 10:24 -Correct Patient Yes -Correct Side, Site, Position Yes -Correct Procedure Yes -Procedure Performed Yes -Type of Procedure Debridement -Clinical Debridement Muscle / Fascia -Tissue Removed Muscle -Post Debridement (cm) - Length 11 -Post Debridement (cm) - Width 7.5 -Post Debridement (cm) - Depth 2.8 -Total Square (Post) (cm) 82.5 -Area of Debridement (cm) - Length 11 -Area of Debridement (cm) - Width 7.5 -Total Square (Area) (cm) 82.5 -Tunneling No -Undermining/Tunneling No -Circular Undermining No -Wound/Ulcer Outcome Not Healed -Ulcer Cleansing Rinsed/ Irrigated with Saline -Foul Odor after Cleansing No -Bioengineered Tissue No -Bleeding Controlled with Pressure -Offloading No -Treatment Response Procedure Tolerated Well -Debridement - Muscle / Fascia, 1st Yes 20sq cm -Debridement, Muscle/Fascia, ea addt'l 4 20sq cm or part thereof Pain Scale: 0-10 Numeric Is Patient Pain Free? Yes - Nurse 3 - General Ulcer D/C NN Start: 12/17/20 09:50 Freq: Status: Active Protocol: Activity Type Activity Date Activity User E-Sign Co-Sign Detail Recorded Client Recorded Date Recorded By Document 12/17/20 10:31 [facility] [id number] 12/17/20 10:32 [facility] 12/17/20 10:31 Wound Care Nurse 3 #4- SACRAL -Ulcer Cleansing Rinsed/ Irrigated with Saline -Foul Odor after Cleansing No -Primary Dressing Applied Aquacel AG 4x4 -Primary Dressing Covered/Secured with Dry Gauze, Secured with Tape,Other -Other Covering abd -Aquacel AG 4x4 1 Treatment Response Procedure Tolerated Well Pain Scale: 0-10 Numeric Is Patient Pain Free? Yes - Visit Discharge Discharge Condition Stable Ambulatory Status Stretcher Transportation Ambulance Facility Type Skilled Nursing Care Facility Wound debrided: Sacral ulcer Wound Grade/Stage: Stage IV Type of Debridement: Excisional debridement Anesthesia Used: 5% Lidocaine Gel Depth: Down to and including healthy tissue, in the subcutaneous layer, to muscle Percentage of wound debrided: 100 Instrument Used: 7mm curette Tissue Removed: Subcutaneous tissue and slough into the muscle. Bone exposed. Severity: Fat Layer Exposed Amount of bleeding with debridement: Mild Bleeding Controlled with: Pressure Patient tolerated procedure well Assessment/Plan Assessment: 1. Pressure ulcer of sacral region, stage 4. 2. Type II diabetes mellitus. 3. Debility. 4. History of stroke. 5. Tobacco abuse Plan: Wound care - Dakin's dressing changes daily. (Wound VAC discontinued due to the excoriated mirlande wound area, most likely caused from wound VAC drape). Operative tissue cultures positive for Enterococcus avium, Corynebacterium striatum, Morganella morganii, Anaerobic cocci, Porphyromonas species, Clostridium group and Bacteroides uniformis. Operative bone culture was negative. ID is consulted. She is receiving Vancomycin and Cefapine while at the custodial. Encouraged to stop smoking as it may be deletarious to wound healing. Encouraged protein supplementation. Follow up 2 weeks. [id number]: [id number] Global Visit
[2021-01-01 13:57] VITALS: BP 95/33; PULSE 102; RESP 18; TEMP 37.2; BMI 22.5
[2021-01-07 10:08] VITALS: BP 114/83; PULSE 106; RESP 16; TEMP 36.1; BMI 22.5
--- NOTE | 2021-01-07 11:38 | PN.PCM_ITS ---
(1) Pressure ulcer of sacral region, stage 4 Status: Chronic Code(s): L89.154 - Pressure ulcer of sacral region, stage 4 (2) Type II diabetes mellitus Status: Chronic Code(s): E11.9 - Type 2 diabetes mellitus without complications (3) Debility Status: Chronic Code(s): R53.81 - Other malaise (4) Tobacco abuse Status: Chronic Code(s): Z72.0 - Tobacco use Type of Wound Date of Service: 01/07/21 Chief Complaint: Sacral ulcer, Stage IV History of Wound: The patient is a 70 y/o F with a history of stroke and diabetes mellitus presents with worsening necrotic infected sacral pressure sore. The pressure sore started in September. There was increasing drainage and odor. In the ED, WBC was 11.1. Lactate was 0.9. She had recent wound culture done on 11/02/20. It showed E. coli, Morganella morganii, Pseudomonas aerogin dottie, and Actinomyces odontolyticus. She was placed on Ciprofloxacin and failed outpatient therapy. She was admitted and initially the Cipro was continued IV. Her antibiotics have been changed to Meropenem. She had a CT Pelvis done on 10/18/20. It showed no demonstrated cortical erosion or bony destruction or periosteal. reaction to indicate active osteomyelitis of the lower coccygeal vertebra. The overlying soft tissues are mildly thickened/edematous possibly due to. cellulitis or pressure wound. No abscess is seen. Large amount of stool throughout the colon. Minor colonic diverticulosis. Because of the odor, wound care was started with Dakin's dressing changes. I was asked to evaluate this patient for surgical options for treatment. Her last HgbA1c from [facility] was 6.9 on 12/23/18. Surgery 11/08/20 - 1. Necrotic infected sacral pressure sore, Stage IV. 2. Clinical osteomyelitis. 3. Diabetes mellitus. 4. History of stroke with decreased ambulation. 5. Smoker. 6. History of MRSA. Operative tissue cultures positive for Enterococcus avium, Corynebacterium striatum, Morganella morganii, Anaerobic cocci, Porphyromonas species, Clostridium group and Bacteroides uniformis. Operative bone culture was negative. ID is consulted. She is receiving [facility]com[facility]. Wound care - Continue Dakin's moistened gauze dressing changes daily. Periwound is much improved using Dakin's instead of the wound VAC. Today she denies fever. She is receiving protein supplementation at the [facility]. Progress of Wound: Stable. - Physical Exam Vital Signs Temp Pulse Resp BP 96.9 F L 106 H 16 114/83 H 01/07/21 10:08 01/07/21 10:08 01/07/21 10:08 01/07/21 10:08 General: Alert, Cooperative HEENT: Atraumatic, Normocephalic, - - Very hard of hearing. Oral: Moist Mucosa Lungs: Normal air movement Cardiovascular: Regular rate Abdomen: Hypoactive Bowel Sounds, Distended, - - When patient was turned to assess her sacral ulcer, her rectum was dilated with impacted stool. Disimpacted a copious amount of firm, brown, stool. Patient tolerated it well. Extremities: No edema, Capillary Refill Less than 3 Seconds Skin: Ulcer/ Wound - Sacral ulcer is pink and into the muscle. The bone is covered. Wound Measurements and Assessment WC - Nurse 1 - General Ulcer Measurement Start: 12/17/20 09:50 Freq: Status: Active Protocol: Activity Type Activity Date Activity User E-Sign Co-Sign Detail Recorded Client Recorded Date Recorded By Document 01/07/21 10:08 [facility] [id number] 01/07/21 10:20 [facility] 01/07/21 10:08 Wound Center Nurse 1 [Ulcer Assessment] #4- SACRAL -Combined with other wound No -Current Size (cm) - Length 10.9 -Current Size (cm) - Width 8.2 -Current Size (cm) - Depth 2.9 -Total Square Cm 89.38 -Photo Taken No -Epithelialization None Present -Tunneling No -Undermining/Tunneling Yes -Undermining/Tunneling Starts (O' 7 clock) -Undermining/Tunneling Ends (O'clock) 11 -Maximum Distance (cm) 1.7 -Circular Undermining No -Exudate Amt Large -Exudate Type Serosanguineous -Wound Margin Thickened & Rolled Under -Granulation Amt Large (67-100%) -Granulation Quality Red -Slough/Fibrin Yes -Necrosis Amt Small (1-33%) -Necrotic Tissue Type Adherent Slough -Texture (Rachana-wound Skin Appearance) Assessed, Scarring -Moisture (Rachana-wound Skin Appearance Assessed ) -Color (Rachana-wound Skin Appearance) Assessed -Temperature (Rachana-wound Skin No Abnormality Appearance) (Pt Warm) -Tenderness on Palpation (Rachana-wound Yes Skin Appearance) -Ulcer Cleansing soapy water -Foul Odor after Cleansing No -Anesthetic Used 4% Lidocaine Solution - Nurse 2 - General Ulcer CM Notes Start: 12/17/20 09:50 Freq: Status: Active Protocol: Activity Type Activity Date Activity User E-Sign Co-Sign Detail Recorded Client Recorded Date Recorded By Document 01/07/21 10:43 JULIO C [id number] 01/07/21 10:45 JULIO C 01/07/21 10:43 Wound Center Nurse 2 [Procedure/Treatment] -Time 10:43 -Correct Patient Yes -Correct Side, Site, Position Yes -Correct Procedure Yes -Procedure Performed Yes -Type of Procedure Debridement -Clinical Debridement Muscle / Fascia -Tissue Removed Muscle,Fascia -Post Debridement (cm) - Length 10.3 -Post Debridement (cm) - Width 6.8 -Post Debridement (cm) - Depth 3.2 -Total Square (Post) (cm) 70.04 -Area of Debridement (cm) - Length 10.3 -Area of Debridement (cm) - Width 6.8 -Total Square (Area) (cm) 70.04 -Tunneling No -Undermining/Tunneling No -Circular Undermining No -Wound/Ulcer Outcome Not Healed -Ulcer Cleansing Rinsed/ Irrigated with Saline -Foul Odor after Cleansing No -Bioengineered Tissue No -Bleeding Controlled with Pressure -Offloading No -Treatment Response Procedure Tolerated Well -Debridement - Muscle / Fascia, 1st Yes 20sq cm -Debridement, Muscle/Fascia, ea addt' 3 l 20sq cm or part thereof [See Physician Procedure note for Specifics] Pain Scale: 0-10 Numeric [Pain] -Is Patient Pain Free? Yes Musculoskeletal: No Tenderness to Palpation of Joints or Extremities Neurological: Cranial nerves II-XII grossly intact Psych/Mental Status: Normal Affect Debridement Note Post-Debridement Measurements/Treatment - Nurse 2 - General Ulcer CM Notes Start: 12/17/20 09:50 Freq: Status: Active Protocol: Activity Type Activity Date Activity User E-Sign Co-Sign Detail Recorded Client Recorded Date Recorded By Document 12/17/20 10:24 JF [id number] 12/17/20 10:26 Document 01/07/21 10:43 [id number] 01/07/21 10:45 12/17/20 01/07/21 10:24 10:43 Wound Center Nurse 2 #4- SACRAL -Time 10:24 10:43 -Correct Patient Yes Yes -Correct Side, Site, Position Yes Yes -Correct Procedure Yes Yes -Procedure Performed Yes Yes -Type of Procedure Debridement Debridement -Clinical Debridement Muscle / Fascia Muscle / Fascia -Tissue Removed Muscle Muscle,Fascia -Post Debridement (cm) - Length 11 10.3 -Post Debridement (cm) - Width 7.5 6.8 -Post Debridement (cm) - Depth 2.8 3.2 -Total Square (Post) (cm) 82.5 70.04 -Area of Debridement (cm) - Length 11 10.3 -Area of Debridement (cm) - Width 7.5 6.8 -Total Square (Area) (cm) 82.5 70.04 -Tunneling No No -Undermining/Tunneling No No -Circular Undermining No No -Wound/Ulcer Outcome Not Healed Not Healed -Ulcer Cleansing Rinsed/ Rinsed/ Irrigated with Irrigated with Saline Saline -Foul Odor after Cleansing No No -Bioengineered Tissue No No -Bleeding Controlled with Pressure Pressure -Offloading No No -Treatment Response Procedure Procedure Tolerated Well Tolerated Well -Debridement - Muscle / Fascia, 1st Yes Yes 20sq cm -Debridement, Muscle/Fascia, ea addt'l 4 3 20sq cm or part thereof Pain Scale: 0-10 Numeric Is Patient Pain Free? Yes Yes WC - Nurse 3 - General Ulcer D/C NN Start: 12/17/20 09:50 Freq: Status: Active Protocol: Activity Type Activity Date Activity User E-Sign Co-Sign Detail Recorded Client Recorded Date Recorded By Document 12/17/20 10:31 [facility] [id number] 12/17/20 10:32 [facility] Document 01/01/21 13:57 DL [id number] 01/01/21 14:06 DL 12/17/20 01/01/21 10:31 13:57 Wound Care Nurse 3 #4- SACRAL -Ulcer Cleansing Rinsed/ Wound Cleanser Irrigated with Saline -Foul Odor after Cleansing No No -Primary Dressing Applied Aquacel AG 4x4 Aquacel AG 4x4 -Other Dressing ABD -Primary Dressing Covered/Secured with Dry Gauze, Dry Gauze, Secured with Secured with Tape,Other Tape -Other Covering abd -Aquacel AG 4x4 1 1 Treatment Response Procedure Procedure Tolerated Well Tolerated Well Vital Signs Temperature (97.8 F-99.1 F) 98.9 F Temperature Source Temporal Pulse Rate (60-100) 102 H Pulse Location Monitor Respiratory Rate (12-18) 18 Respiratory rate source Observation Blood Pressure (90/60-120/80) 95/33 L Blood Pressure Mean (mm Hg) 53 Source Monitor Pain Scale: 0-10 Numeric Is Patient Pain Free? Yes Yes WC - Visit Discharge Discharge Condition Stable Stable Ambulatory Status Stretcher Stretcher Transportation Ambulance Ambulance Accompanied by daughter Facility Type [facility] Facility Notes: [facility]. Orders Sent Yes Wound debrided: Sacral Wound Grade/Stage: Stage IV Type of Debridement: Excisional debridement Anesthesia Used: 5% Lidocaine Gel Depth: Down to and including healthy tissue, in the subcutaneous layer, to muscle Percentage of wound debrided: 100 Instrument Used: 7mm curette Tissue Removed: Subcutaneous tissue and slough into the muscle Severity: Fat Layer Exposed Amount of bleeding with debridement: Mild Bleeding Controlled with: Pressure Patient tolerated procedure well Assessment/Plan Active Problems (Last Updated 12/19/20 @ 08:38 by Chloé Cantor) Debility (Chronic) Pressure ulcer of sacral region, stage 4 (Chronic) Type II diabetes mellitus (Chronic) Tobacco abuse (Chronic) Assessment: 1. Pressure ulcer of sacral region, stage 4. 2. Type II diabetes mellitus. 3. Debility. 4. History of stroke. 5. Tobacco abuse Plan: Wound care - Dakin's moistened gauze topped with ABD or ultra absorbant dressing changes daily. (Wound VAC discontinued due to the excoriated rachana wound area, most likely caused from wound VAC drape). Today when patient was turned to debride her sacral ulcer, her rectum was dilated 5-6 cm with impacted stool. Patient's daughter states that her mother has not had a BM in at least a week. Disimpacted a large amount of firm stool from her rectum. Hopefully this will help her start to go. She should use Hemorrhoid cream to help with discomfort and stool softeners. Patient's daughter states that she had been concerned about stool getting into the ulcer (until this past week when her mother became constipated). Will refer patient to [facility], Dr. Fortune for evaluation for a diverting colostomy. This may help keep the ulcer from getting stool in it. Operative tissue cultures positive for Enterococcus avium, Corynebacterium striatum, Morganella morganii, Anaerobic cocci, Porphyromonas species, Clostridium group and Bacteroides uniformis. Operative bone culture was negative. ID is consulted. She is receiving Vancomycin and [facility]efapine [facility] at the [facility]. Encouraged to stop smoking as it may be deletarious to wound healing. Encouraged protein supplementation. Follow up 2 weeks. [id number]: [id number] Global Visit
== END 2021-01-11 23:59 ==
LOC: WC 09:45
PROVIDERS: PCP Family Medicine; Visit Provider Nurse Practitioner Family
DX: L89.154 Pressure ulcer of sacral region, stage 4 (principal); E11.9 Type 2 diabetes mellitus without complications; Z72.0 Tobacco use; Z86.73 Personal history of transient ischemic attack (TIA), and cerebral infarction without residual deficits; Z86.14 Personal history of Methicillin resistant Staphylococcus aureus infection; Z86.19 Personal history of other infectious and parasitic diseases
CPT/HCPCS: 11043; 11046; 99212; G0463

== ENCOUNTER → 2021-01-08 08:58 | Outpatient (CLI) | payer MEDICARE, MEDICAID, SELFPAY ==
[2020-12-21 11:04] VITALS: BMI 27.4
[2021-01-07 12:01] VITALS: BMI 27.4
--- NOTE | 2021-01-07 16:58 | PCM.HP.BLA ---
Problem List (1) Abnormal echocardiogram Status: Acute History and Physical Date of Admission: 01/07/21 [facility] [address] [place] [address] OFFICE VISIT Date of Service: 12/21/20 MR#:[id number]:[id number] Name: TATIANA DICKEY [facility] #:[id number] : 1950 Provider: CONOR Vaughan Age/Sex: 70/F Location[place] Status:Signed HPI HPI History of Present Illness Surgical H&P: Yes Details: This is a 70-year-old female that presents here today for a hospital follow-up. Patient was admitted in October for an infected decubitus ulcer. She underwent debridement of this. During that time she was noted to be in atrial fibrillation and had an abnormal echocardiogram. Echocardiogram demonstrated an echodensity in the right atrium that could be vegetation or thrombus or mass. She does have a history of atrial fibrillation, TIA, peripheral vascular disease with iliac and SFA stenting. Patient underwent repeat echocardiogram on December 12, 2020 which demonstrated an ejection fraction of 65%. Continued findings of a mobile echodensity near the base of the tricuspid valve with uncertain etiology. MARCK or cardiac MRI was recommended. Patient's daughter who is power of personal injury attorney prefers to proceed with a MARCK. [place] [address] MARCK is scheduled with Dr. Upton on January 04, 2021. She does not have any chest discomfort/heaviness/tightness. She does not have any worsening symptoms of shortness of breath. She does not have any orthopnea. She denies PND. She does not have any symptoms of congestive heart failure. She does not have any palpitations that she is aware of. She does not have any lightheadedness or dizziness. She does not have any near-syncope or syncope. She does spend her time in a WC Intake Vital Signs 12/21/20 Height 5 ft 5 in 12/21/20 Weight: 165 lb 12/21/20 BMI 27.4 12/21/20 BP 119/80 12/21/20 Blood Pressure Location Lt brachial 12/21/20 Position Sitting 12/21/20 Respiration 18 12/21/20 Pulse 89 12/21/20 Pulse Source Monitor 12/21/20 Pulse Oximetry (%) 94 Intake Visit Reasons: update H & P/A-FIB Trust Advisor Required: No Is patient in pain?: No Allergies amoxicillin [From Augmentin] Allergy (Verified 12/21/20 11:00) Rash atorvastatin [From Lipitor] Allergy (Verified 12/21/20 11:00) Other clavulanic acid [From Augmentin] Allergy (Verified 12/21/20 11:00) Rash gabapentin Allergy (Verified 12/21/20 11:00) Nausea lisinopril Allergy (Verified 12/21/20 11:00) PT UNSURE OF REACTION mold Allergy (Verified 12/21/20 11:00) PT UNSURE OF REACTION pollen extracts Allergy (Verified 12/21/20 11:00) PT UNSURE OF REACTION quinapril [From Accupril] Allergy (Verified 12/21/20 11:00) Rash ragweed pollen Allergy (Verified 12/21/20 11:00) PT UNSURE OF REACTION simvastatin [From Zocor] Allergy (Verified 12/21/20 11:00) PT UNSURE OF REACTION tramadol Allergy (Verified 12/21/20 11:00) PT UNSURE OF REACTION tuberculin, purified protein deriva Allergy (Verified 12/21/20 11:00) PT UNSURE OF REACTION fluoxetine Adverse Reaction (Verified 12/21/20 11:00) Other Medications Hydrochlorothiazide [Hctz] 12.5 mg PO DAILY 06/16/18 [History Confirmed 12/03/20] Losartan Potassium [Cozaar] 100 mg PO DAILY 06/16/18 [History Confirmed 12/03/20] Rosuvastatin Calcium 5 mg PO QHS 09/08/18 [History Confirmed 12/03/20] metFORMIN (XR) [Glucophage Xr] 500 mg PO BID 04/30/20 [History Confirmed 12/03/20] Amlodipine [Norvasc] 10 mg PO DAILY 11/06/20 [History Confirmed 12/03/20] Aspirin [Aspirin, Baby] 81 mg PO DAILY@0800 11/06/20 [History Confirmed 12/03/20] Cyclobenzaprine HCl 10 mg PO BID 11/06/20 [History Confirmed 12/03/20] Docusate Sodium [Colace] 100 mg PO BID 11/06/20 [History Confirmed 12/03/20] Ipratropium/Albuterol Sulfate [Duoneb] 3 ml INHALATION Q4H.RT 11/06/20 [History Confirmed 12/03/20] Multivitamin with Minerals [Multiple Vitamin] 1 each PO DAILY 11/06/20 [History Confirmed 12/03/20] metroNIDAZOLE [Flagyl] 500 mg PO TID #120 tablet 11/12/20 [Rx Confirmed 12/03/20] Apixaban [Eliquis] 5 mg PO BID #60 tablet 11/13/20 [Rx Confirmed 12/03/20] Nicotine [Nicoderm Cq] 21 mg TD DAILY #30 patch 11/13/20 [Rx Confirmed 12/03/20] Magnesium Hydroxide [Milk Of Magnesia] 30 ml PO DAILY PRN PRN 12/03/20 [History Confirmed 12/03/20] Oxycodone HCl 5 mg PO Q4H PRN 12/03/20 [History Confirmed 12/03/20] PFSH Medical History (Updated 12/21/20 @ 11:34 by Chloé Vaughan PA, PA) Atrial fibrillation (Chronic) Abnormal echocardiogram (Acute) Hx TIA/stroke w/o resid (Chronic) Diabetes (Chronic) Neurogenic bladder (Chronic) Urinary retention (Acute) Neurogenic bladder (Chronic) Urge incontinence (Acute) Nocturia (Acute) Intertrochanteric fracture of left hip (Acute) Left humeral fracture (Resolved) HTN (hypertension) (Chronic) Chronic ulcer of left heel with fat layer exposed (Chronic) Decubitus ulcer of left heel, stage 4 (Chronic) PAD (peripheral artery disease) (Chronic) Tobacco abuse (Chronic) CAD (coronary artery disease) (Acute) Cervical radiculitis (Acute) Frozen shoulder (Acute) Gout (Acute) History of MRSA infection (Acute) Neuropathy (Acute) Osteoporosis (Acute) Peripheral vascular disease (Acute) Type II diabetes mellitus (Acute) Vitamin D deficiency (Acute) Chronic neck pain (Chronic) Surgical History (Updated 12/03/20 @ 15:10 by Chloé Cantor) History of right-sided carotid endarterectomy (Chronic) History of lumpectomy of right breast (Chronic) History of partial hysterectomy (Chronic) Hx of bladder repair surgery (Chronic) Hx of tonsillectomy (Chronic) Family History Mother Tuberculosis Father Heart disease CVA (cerebral vascular accident) Sister Multiple sclerosis Brother Heart disease Social History (Updated 12/24/20 @ 17:08 by Chloé Vaughan PA, PA) Smoking Status: Current every day smoker tobacco type: cigarettes Tobacco: How many years used: 53 second hand exposure: Yes alcohol intake: never substance use type: does not use caffeine: Yes what type of physical activity do you participate in: none frequency: does not exercise Cardiology Exam Const Appearance: cooperative, no acute distress, well developed and frail appearing Orientation: alert, awake and oriented x3 Limitations: language barrier and physical limitations Head Head: normocephalic and atraumatic Mouth: moist mucous membranes Eyes General: appearance normal, both eyes and all related structures Conjunctivae: conjunctivae normal Pupils: PERRL EOM: EOM intact bilaterally Neck Neck: normal visual inspection, no lymphadenopathy and no JVD Carotids: Negative bruit Neck Mass: Negative Neck mass Chest Chest inspection: normal inspection of the chest and symmetric chest movement Auscultation: Bilateral: Diminished Lung Sounds Cardio Palpation: normal PMI Rate: regular rate Rhythm: irregularly irregular Heart sounds: S1 normal and S2 normal; negative rub, gallop or murmur GI GI: normal to inspection, soft, no hepatosplenomegaly and bowel sounds present; negative tender Neuro General: alert, awake, oriented x3, CN's II-XI intact bilaterally and moves all extremities Extremities Pulses: Normal: Right Radial Pulse, Left Radial Pulse, Diminished: Right Posterior Tibial Pulse, Left Posterior Tibial Pulse Lower Extremity Edema: None: Bilateral Psych Psychological: normal affect Assessment & Plan 1. Abnormal echocardiogram R93.1 Plan With the echodensity, would like to proceed with a MARCK. Patient Instructions We are obtaining a MARCK to further look at this 2. Atrial fibrillation I48.91 Plan Patient's heart rate is controlled. She will continue with her factor Xa inhibitor. She is not on any rate limiting medication. Patient Instructions Stop Eliquis Orders Orders: 12 Lead EKG performed by [facility] 12/21/20 3. Essential hypertension I10 Plan Blood pressure is well controlled on current medications, we do not recommend any changes at this time. Plan Detail Other Medications Discontinued: clopidogrel Discontinued Reason: Order Completed 75 mg PO DAILY blood thinner Follow Up 6 Months (PFM) Coding Level of Care Code Off vis,est,level 3 Diagnoses Abnormal echocardiogram R93.1 Atrial fibrillation I48.91 Essential hypertension I10 Hypertension type: essential hypertension Coding Level of Care Code Off vis,est,level 3 Diagnoses Abnormal echocardiogram R93.1 Atrial fibrillation I48.91 Essential hypertension I10 Hypertension type: essential hypertension Supplemental Info Supplemental Information Echocardiogram 11/08/2020: The estimated ejection fraction is 55 %. No evidence for diastolic dysfunction. Normal RA size. Near the junction of the RA and ivc, close of the base of the tricuspid valve there is a mobile echodensity that could be thrombus, vegetation or mass. Contrast injection was performed. The study was technically difficult. Echocardiogram 12/12/2020: Left ventricular systolic function is normal. The estimated ejection fraction is 65 %. Trivial mitral valve insufficiency. Trivial tricuspid valve insufficiency. Unable to estimate RV systolic pressure/pulmonary artery pressure due to technically difficult study. Diastolic function is indeterminate. Comment: 2D echocardiographic images demonstrate a vague mobile echodensity near the base of the tricuspid valve apparatus of uncertain etiology with differential diagnosis including echocardiographic reverberation/artifact however other etiologies of mobile mass lesions cannot necessarily be excluded-consider further evaluation with transesophageal echocardiogram or cardiac MRI as clinically indicated. Labs LDL Cholesterol 90 mg/dL (0-130) 12/22/13 HDL Cholesterol 43 mg/dL (40-) 12/22/13 Triglycerides 115 mg/dL (0-199) 12/22/13 VLDL Cholesterol 23 mg/dL (5-40) 12/22/13 Diagnostics Electrocardiogram 12/21/20 Echocardiogram 12/12/20 Chest X-Ray 12/04/19 Venous Doppler Study 01/07/19 COVID (Procedure Consent) Procedure Criteria Procedure Criteria: Yes Elective The surgeon/proceduralist and patient have discussed in detail the risk of exposure to and/or potential harm posed by the COVID-19 virus with having a surgery/procedure at this time versus the risk of delaying the surgery/procedure. It is not possible to know either the risk of delaying the surgery or procedure or chance of getting an infection with perfect accuracy, but a joint decision was made between the patient and the surgeon/proceduralist to proceed at this time with the scheduled surgery/procedure as indicated on the consent form. 12/24/20 0128<Electronically signed by Chloé PERDOMO> Date Chloé PERDOMO Procedure Criteria Procedure Type: Elective COVID Risk Discussion: The surgeon/proceduralist and patient have discussed in detail the risk of exposure to and/or potential harm posed by the COVID-19 virus with having a surgery/procedure at this time versus the risk of delaying the surgery/procedure. It is not possible to know either the risk of delaying the surgery or procedure or chance of getting an infection with perfect accuracy, but a joint decision was made between the patient and the surgeon/proceduralist to proceed at this time with the scheduled surgery/procedure as indicated on the consent form.
--- NOTE | 2021-01-08 09:01 | ECHOTEE_ITS ---
Reason For Study: AFIB, ABNORMAL FINDING ON ECHO Medication MARCK probe 6VT-D (SN [id number]) passed with minimal difficulty. No complications were noted. Cetacaine Topical [place] given X3 orally. Versed 1 mg given slow IVP. Fentanyl 50 mcg given slow IVP. Performed a rapid injection of agitated mix of 9 cc saline and 1cc air to assess for atrial septal defect. Left Ventricle Normal LV size. Left ventricular systolic function is normal. The estimated ejection fraction is 60 %. No regional wall motion abnormalities noted. Right Ventricle Normal RV size. Normal systolic function. Atria No doppler evidence for ASD. Bubble contrast study negative for right to left interatrial shunt. The left atrium is mildly enlarged. There is no sponatenous contrast in the left atrium. No thrombus is detected in the left atrial appendage. Normal right atrium. There is no sponatenous contrast in the right atrium. No RA/appendage thrombus identified. Mitral Valve There is no mitral annular calcification. Mild diffuse mitral valve thickening. The mitral valve chordae are thickened and/or calcified. Mild (1+) mitral valve insufficiency. Tricuspid Valve Normal tricuspid valve. Trivial tricuspid valve insufficiency. Aortic Valve Trisinus/trileaflet aortic valve. Normal aortic valve. Pulmonic Valve The pulmonic valve is not well visualized. Vessels Moderate atherosclerosis of the descending aorta. Pericardium Trivial pericardial effusion. There are no echocardiographic indications of cardiac tamponade. ECHO/Echo Transesophageal (MARCK) Interpretation Summary Left ventricular systolic function is normal. The estimated ejection fraction is 60 %. The left atrium is mildly enlarged. There is no sponatenous contrast in the left atrium. No thrombus is detected in the left atrial appendage. Mild diffuse mitral valve thickening. The mitral valve chordae are thickened and/or calcified. Mild (1+) mitral valve insufficiency. Trivial tricuspid valve insufficiency. Bubble contrast study negative for right to left interatrial shunt. Moderate atherosclerosis of the descending aorta. Trivial pericardial effusion. There are no echocardiographic indications of cardiac tamponade. Comment: No obvious intracardiac mass lesion identified. Ordering Physician: Tawanda Upton Referring Physician: NORAH ENGLISH Performed By: Danielle Myers RUFINO
== END ==
PROVIDERS: PCP Family Medicine; Referring Provider Internal Medicine Cardiovascular Disease; Visit Provider Internal Medicine Cardiovascular Disease
DX: I48.91 Unspecified atrial fibrillation (principal); R93.1 Abnormal findings on diagnostic imaging of heart and coronary circulation; I10 Essential (primary) hypertension
CPT/HCPCS: 93312; 93320; 93325; J7040; A4216

== ENCOUNTER 2021-01-21 12:00 | Inpatient (IN) | payer MEDICARE, MEDICAID, SELFPAY ==
[2021-01-10 09:42] VITALS: BMI 22.4
--- NOTE | 2021-01-21 08:26 | HP_ITS ---
Intake Vital Signs 01/10/21 09:36 01/10/21 09:42 Height 5 ft 6 in Weight: 139 lb 3 oz BMI 27.4 22.4 BP 131/87 H Blood Pressure Location Lt radial Position Sitting Respiration 20 H Pulse 111 H Pulse Source NIBP Temp 98.2 F Temp Source Temporal Pulse Oximetry (%) 96 Oxygen Delivery Method room air Intake Visit Reasons: COLOSTOMY PLACEMENT Chief Complaint: discuss diverting colostomy Senior Web Engineer Required: No Is patient in pain?: No Allergies amoxicillin [From Augmentin] Allergy (Verified 01/10/21 09:43) Rash atorvastatin [From Lipitor] Allergy (Verified 01/10/21 09:43) Other clavulanic acid [From Augmentin] Allergy (Verified 01/10/21 09:43) Rash gabapentin Allergy (Verified 01/10/21 09:43) Nausea lisinopril Allergy (Verified 01/10/21 09:43) PT UNSURE OF REACTION mold Allergy (Verified 01/10/21 09:43) PT UNSURE OF REACTION pollen extracts Allergy (Verified 01/10/21 09:43) PT UNSURE OF REACTION quinapril [From Accupril] Allergy (Verified 01/10/21 09:43) Rash ragweed pollen Allergy (Verified 01/10/21 09:43) PT UNSURE OF REACTION simvastatin [From Zocor] Allergy (Verified 01/10/21 09:43) PT UNSURE OF REACTION tramadol Allergy (Verified 01/10/21 09:43) PT UNSURE OF REACTION tuberculin, purified protein deriva Allergy (Verified 01/10/21 09:43) PT UNSURE OF REACTION fluoxetine Adverse Reaction (Verified 01/10/21 09:43) Other Medications hydrochlorothiazide 12.5 mg PO DAILY 06/16/18 [History Confirmed 01/10/21] losartan 100 mg PO DAILY 06/16/18 [History Confirmed 01/10/21] rosuvastatin 5 mg PO QHS 09/08/18 [History Confirmed 01/10/21] metformin 500 mg PO BID 04/30/20 [History Confirmed 01/10/21] aspirin 81 mg PO DAILY@0800 11/06/20 [History Confirmed 01/10/21] cyclobenzaprine 10 mg PO BID 11/06/20 [History Confirmed 01/10/21] docusate sodium 100 mg PO BID 11/06/20 [History Confirmed 01/10/21] ipratropium-albuterol 3 ml INHALATION Q4H.RT 11/06/20 [History Confirmed 01/10/21] multivitamin with minerals 1 each PO DAILY 11/06/20 [History Confirmed 01/10/21] nicotine 21 mg TD DAILY #30 patch 11/13/20 [Rx Confirmed 01/10/21] magnesium hydroxide 30 ml PO DAILY PRN PRN 12/03/20 [History Confirmed 01/10/21] oxycodone 5 mg PO Q4H PRN 12/03/20 [History Confirmed 01/10/21] Is last menstrual period known: No Post menopausal: Yes Patient : No PFSH Medical History Abnormal echocardiogram Atrial fibrillation CAD (coronary artery disease) Cervical radiculitis Chronic neck pain Chronic ulcer of left heel with fat layer exposed Decubitus ulcer of left heel, stage 4 Diabetes Frozen shoulder Gout History of MRSA infection HTN (hypertension) Hx TIA/stroke w/o resid Intertrochanteric fracture of left hip Left humeral fracture Neurogenic bladder Neurogenic bladder Neuropathy Nocturia Osteoporosis PAD (peripheral artery disease) Peripheral vascular disease Tobacco abuse Type II diabetes mellitus Urge incontinence Urinary retention Vitamin D deficiency Surgical History History of lumpectomy of right breast History of partial hysterectomy History of right-sided carotid endarterectomy Hx of bladder repair surgery Hx of tonsillectomy Family History Mother Tuberculosis Father Heart disease CVA (cerebral vascular accident) Sister Multiple sclerosis Brother Heart disease Social History Smoking Status: Current every day smoker tobacco type: cigarettes Tobacco: How many years used: 53 second hand exposure: Yes alcohol intake: never substance use type: does not use caffeine: Yes what type of physical activity do you participate in: none frequency: does not exercise HPI HPI HPI: TATIANA DICKEY, is a 70 F who presents to the office today for HPI HPI Surgical H&P: Yes HPI: TATIANA DICKEY, is a 70 F who presents to the office today for sacral ulcer. The patient has had a long bout with infected sacral ulcers due to a back injury. The patient has been having subsequent infections due to stool soilage. The patient is here for evaluation for diverting colostomy. The patient has been seen multiple times at the wound center and by plastic surgery. ROS General General: Yes appetite and fatigue Endo Endocrine: Yes diabetes mellitus Skin Additional Details: Sacral ulcer Musc Musculoskeletal: Yes back problems Cardio Cardiovascular: Yes atrial fibrillation and high blood pressure; No pacemaker, heart disease, heart attack, heart stent, palpitations, shortness of breat with exertion or chest pain Psych Psychiatric: No depression or anxiety Resp Respiratory: Yes shortness of breath, No sleep apnea, No cough, Yes COPD, No asthma, No emphysema and No wheezing Gastro Gastrointestinal: No abdominal pain, No nausea or vomiting, No diarrhea, Yes constipation, No blood in stool, No acid reflux, No hemorrhoids, No ulcers, No gallbladder problem and No black,tarry stools [place] Hematologic: Yes blood thinners Exam Const General: cooperative, comfortable and no acute distress Orientation: alert and oriented x3 Other: Very hard of hearing HENMT Head: normal to inspection Ears: hearing grossly normal bilaterally Eyes General: appearance normal, both eyes and all related structures Visual Alvarez: normal visual alvarez by confrontation Neck Neck: normal visual inspection Chest Chest palpation & inspection: normal inspection of the chest Resp Effort & Inspection: normal respiratory effort Auscultation: clear to auscultation bilaterally Cardio Rate: regular rate Rhythm: regular rhythm GI Inspection: normal to inspection and non-distended Palpation: soft and nontender Musc Cervical Spine: normal cervical lordosis and cervical ROM normal Skin Wounds: wounds noted (Sacral ulcer) Neuro General: patient alert and patient oriented x3 Cranial Nerves: CN's II-XI intact bilaterally Cognition: normal cognition Extrem General: normal to inspection and full ROM Psych Appearance: grossly normal Affect: normal affect Assessment and Plan Assessment and Plan (1) Decubitus ulcer: Status: Acute Qualifiers: Laterality: unspecified laterality Pressure injury location: buttock Pressure injury stage: unstageable Qualified Code(s): L89.300 - Pressure ulcer of unspecified buttock, unstageable (2) Debility: Status: Chronic (3) Tobacco abuse: Status: Chronic Plan - Dr. Tung Fortune MD: The patient has a sacral ulcer which continues to become infected due to stool soilage. The patient was sent here by plastic surgery for evaluation for diverting sigmoid colostomy. I discussed this in detail with the patient and the patient's daughter. I explained that this is likely nonreversible. I went over the procedure in detail as well as described the risks of the procedure including but not limited to bleeding, infection, injury to surrounding organs such as the bladder, ureter, or other bowel. I also discussed the risks of taking her off of her blood thinners to do the surgery such as heart attack or stroke or ischemia of the lower extremities in which she has stents. I discussed the alternative of leaving her this way and possibly consulting hospice. She is already enrolled in palliative care. She would like the diverting colostomy so she may be able to go home and be taken care of at home instead of staying at the long-term. The patient would like to proceed with laparoscopic sigmoid colectomy with colostomy. I have prescribed a bowel prep for the patient I would like her to hold her blood thinners for 2 days prior to the procedure. The wound nurse will meet her in preoperative care to [place]ele her for a stoma. Tung Fortune MD Pager: [facility] [address] [place] [address], [address] [place] [address] Office: Coding Level of Care Code Off vis,new,level 4 Diagnoses Decubitus ulcer L89.300 Laterality: unspecified laterality Pressure injury location: buttock Pressure injury stage: unstageable Debility R53.81 Tobacco abuse Z72.0 Time Spent (min) 45
[2021-01-21 12:39] VITALS: BP 146/95; PULSE 104; RESP 16; TEMP 36.6; O2SAT 93; BMI 28.2
[2021-01-21] MEDS: Lactated Ringers 1,000 ML 100 ML IV (12:50)
[2021-01-21 13:00] LABS: Hemoglobin A1c 5.3 % (3.8-5.6)
--- NOTE | 2021-01-21 13:17 | HP.PCM_ITS ---
History and Physical Date of Admission: 01/21/21 Intake Vital Signs 01/10/21 09:36 01/10/21 09:42 Height 5 ft 6 in Weight: 139 lb 3 oz BMI 27.4 22.4 BP 131/87 H Blood Pressure Location Lt radial Position Sitting Respiration 20 H Pulse 111 H Pulse Source NIBP Temp 98.2 F Temp Source Temporal Pulse Oximetry (%) 96 Oxygen Delivery Method room air Intake Visit Reasons: COLOSTOMY PLACEMENT Chief Complaint: discuss diverting colostomy Medical Orderly Required: No Is patient in pain?: No Allergies amoxicillin [From Augmentin] Allergy (Verified 01/10/21 09:43) Rash atorvastatin [From Lipitor] Allergy (Verified 01/10/21 09:43) Other clavulanic acid [From Augmentin] Allergy (Verified 01/10/21 09:43) Rash gabapentin Allergy (Verified 01/10/21 09:43) Nausea lisinopril Allergy (Verified 01/10/21 09:43) PT UNSURE OF REACTION mold Allergy (Verified 01/10/21 09:43) PT UNSURE OF REACTION pollen extracts Allergy (Verified 01/10/21 09:43) PT UNSURE OF REACTION quinapril [From Accupril] Allergy (Verified 01/10/21 09:43) Rash ragweed pollen Allergy (Verified 01/10/21 09:43) PT UNSURE OF REACTION simvastatin [From Zocor] Allergy (Verified 01/10/21 09:43) PT UNSURE OF REACTION tramadol Allergy (Verified 01/10/21 09:43) PT UNSURE OF REACTION tuberculin, purified protein deriva Allergy (Verified 01/10/21 09:43) PT UNSURE OF REACTION fluoxetine Adverse Reaction (Verified 01/10/21 09:43) Other Medications hydrochlorothiazide 12.5 mg PO DAILY 06/16/18 [History Confirmed 01/10/21] losartan 100 mg PO DAILY 06/16/18 [History Confirmed 01/10/21] rosuvastatin 5 mg PO QHS 09/08/18 [History Confirmed 01/10/21] metformin 500 mg PO BID 04/30/20 [History Confirmed 01/10/21] aspirin 81 mg PO DAILY@0800 11/06/20 [History Confirmed 01/10/21] cyclobenzaprine 10 mg PO BID 11/06/20 [History Confirmed 01/10/21] docusate sodium 100 mg PO BID 11/06/20 [History Confirmed 01/10/21] ipratropium-albuterol 3 ml INHALATION Q4H.RT 11/06/20 [History Confirmed 01/10/21] multivitamin with minerals 1 each PO DAILY 11/06/20 [History Confirmed 01/10/21] nicotine 21 mg TD DAILY #30 patch 11/13/20 [Rx Confirmed 01/10/21] magnesium hydroxide 30 ml PO DAILY PRN PRN 12/03/20 [History Confirmed 01/10/21] oxycodone 5 mg PO Q4H PRN 12/03/20 [History Confirmed 01/10/21] Is last menstrual period known: No Post menopausal: Yes Patient : No PFSH Medical History Abnormal echocardiogram Atrial fibrillation CAD (coronary artery disease) Cervical radiculitis Chronic neck pain Chronic ulcer of left heel with fat layer exposed Decubitus ulcer of left heel, stage 4 Diabetes Frozen shoulder Gout History of MRSA infection HTN (hypertension) Hx TIA/stroke w/o resid Intertrochanteric fracture of left hip Left humeral fracture Neurogenic bladder Neurogenic bladder Neuropathy Nocturia Osteoporosis PAD (peripheral artery disease) Peripheral vascular disease Tobacco abuse Type II diabetes mellitus Urge incontinence Urinary retention Vitamin D deficiency Surgical History History of lumpectomy of right breast History of partial hysterectomy History of right-sided carotid endarterectomy Hx of bladder repair surgery Hx of tonsillectomy Family History Mother Tuberculosis Father Heart disease CVA (cerebral vascular accident) Sister Multiple sclerosis Brother Heart disease Social History Smoking Status: Current every day smoker tobacco type: cigarettes Tobacco: How many years used: 53 second hand exposure: Yes alcohol intake: never substance use type: does not use caffeine: Yes what type of physical activity do you participate in: none frequency: does not exercise HPI HPI HPI: TATIANA DICKEY, is a 70 F who presents to the office today for HPI HPI Surgical H&P: Yes HPI: TATIANA DICKEY, is a 70 F who presents to the office today for sacral ulcer. The patient has had a long bout with infected sacral ulcers due to a back injury. The patient has been having subsequent infections due to stool soilage. The patient is here for evaluation for diverting colostomy. The patient has been seen multiple times at the wound center and by plastic surgery. ROS General General: Yes appetite and fatigue Endo Endocrine: Yes diabetes mellitus Skin Additional Details: Sacral ulcer Musc Musculoskeletal: Yes back problems Cardio Cardiovascular: Yes atrial fibrillation and high blood pressure; No pacemaker, heart disease, heart attack, heart stent, palpitations, shortness of breat with exertion or chest pain Psych Psychiatric: No depression or anxiety Resp Respiratory: Yes shortness of breath, No sleep apnea, No cough, Yes COPD, No asthma, No emphysema and No wheezing Gastro Gastrointestinal: No abdominal pain, No nausea or vomiting, No diarrhea, Yes constipation, No blood in stool, No acid reflux, No hemorrhoids, No ulcers, No gallbladder problem and No black,tarry stools [place] Hematologic: Yes blood thinners Exam Const General: cooperative, comfortable and no acute distress Orientation: alert and oriented x3 Other: Very hard of hearing HENMT Head: normal to inspection Ears: hearing grossly normal bilaterally Eyes General: appearance normal, both eyes and all related structures Visual Alvarez: normal visual alvarez by confrontation Neck Neck: normal visual inspection Chest Chest palpation & inspection: normal inspection of the chest Resp Effort & Inspection: normal respiratory effort Auscultation: clear to auscultation bilaterally Cardio Rate: regular rate Rhythm: regular rhythm GI Inspection: normal to inspection and non-distended Palpation: soft and nontender Musc Cervical Spine: normal cervical lordosis and cervical ROM normal Skin Wounds: wounds noted (Sacral ulcer) Neuro General: patient alert and patient oriented x3 Cranial Nerves: CN's II-XI intact bilaterally Cognition: normal cognition Extrem General: normal to inspection and full ROM Psych Appearance: grossly normal Affect: normal affect Assessment and Plan Assessment and Plan (1) Decubitus ulcer: Status: Acute Qualifiers: Laterality: unspecified laterality Pressure injury location: buttock Pressure injury stage: unstageable Qualified Code(s): L89.300 - Pressure ulcer of unspecified buttock, unstageable (2) Debility: Status: Chronic (3) Tobacco abuse: Status: Chronic Plan - Dr. Tung Fortune MD: The patient has a sacral ulcer which continues to become infected due to stool soilage. The patient was sent here by plastic surgery for evaluation for diverting sigmoid colostomy. I discussed this in detail with the patient and the patient's daughter. I explained that this is likely nonreversible. I went over the procedure in detail as well as described the risks of the procedure including but not limited to bleeding, infection, injury to surrounding organs such as the bladder, ureter, or other bowel. I also discussed the risks of taking her off of her blood thinners to do the surgery such as heart attack or stroke or ischemia of the lower extremities in which she has stents. I discussed the alternative of leaving her this way and possibly consulting hospice. She is already enrolled in palliative care. She would like the diverting colostomy so she may be able to go home and be taken care of at home instead of staying at the senior living. The patient would like to proceed with laparoscopic sigmoid colectomy with colostomy. I have prescribed a bowel prep for the patient I would like her to hold her blood thinners for 2 days prior to the procedure. The wound nurse will meet her in preoperative care to adele her for a stoma. Tung Fortune MD Pager: [facility] [address] [place] [address], [address] [place] [address] Office: I have re-examined the patient. There are no clinical changes since date of exam.
[2021-01-21 13:18] LABS: Bacteria 0 SEEN /hpf (None Seen); Color, Urine Yellow (Yellow); Glucose, Dipstick Normal (Normal); Ketone-Dipstick Negative (Negative); Leukocyte Esterase-Dipstick 500 /ul (Negative); Mucous, Urine 0 SEEN /hpf (<or=2+); Nitrite-Dipstick Negative (Negative); Occult Blood-Urine 150 /ul (Negative); Protein-Dipstick 100 mg/dl (Negative); Red Blood Cells-Urine 0 SEEN /hpf (0-5); Squamous Epithelial Cells - UA 0 SEEN /hpf (5-10); Urine Bilirubin Dipstick Negative (Negative); Urine Clarity Cloudy (Clear); Urine Urobilinogen Normal (Normal)
[2021-01-21 13:24] LABS: White Blood Cells >100 SEEN /hpf (0-5)
[2021-01-21 13:40] LABS: Bedside Glucose 86 mg/dL (70-110)
--- NOTE | 2021-01-21 14:23 | PCM.OPRPT ---
Problems Associated Problem List Diagnoses (1) Impacted stool in rectum: Report of Operation Date of Procedure: 01/21/21 Pre-Operative Diagnosis: Sacral ulcer and need for colostomy for diversion Post-Operative Diagnosis: Impacted stool Surgery/Procedure Performed:: Disimpaction of rectal vault under anesthesia Description of Procedure: The patient was brought back to surgery to attempt a laparoscopic sigmoid colectomy with diverting colostomy. The patient was rolled after being placed in the operating room and given a small bolus of propofol. The patient was found to have an extremely large amount of solid stool in the rectal vault with impaction. The patient was manually disimpacted under propofol anesthesia. The decision was made to delay the sigmoid colostomy due to the stool impaction. The patient will be admitted and bowel prep will be continued. Patient was taken to PACU in stable condition.
[2021-01-21 14:55] VITALS: BP 103/73; PULSE 93; RESP 16; TEMP 36.4; O2SAT 87
[2021-01-21] MEDS: Bisacodyl 5 MG Tablet 20 MG PO (15:05)
--- NOTE | 2021-01-21 16:05 | CON.PCM.HO_ITS ---
Assessment & Plan Assessment/Plan (1) Impacted stool in rectum: (2) COPD (chronic obstructive pulmonary disease): QUALIFIERS: COPD type: unspecified COPD Qualified Code(s): J44.9 - Chronic obstructive pulmonary disease, unspecified (3) Chronic respiratory failure with hypoxia: (4) Pressure ulcer of sacral region, stage 4: (5) Osteomyelitis of pelvic region: (6) Type II diabetes mellitus: (7) Atrial fibrillation: (8) Hx TIA/stroke w/o resid: (9) HTN (hypertension): QUALIFIERS: Hypertension type: essential hypertension Qualified Code(s): I10 - Essential (primary) hypertension PLAN: This is a 70 years old female patient underwent fecal disimpaction under general anesthesia for fecal impaction and she is supposed to go for dive rsion colostomy for nonhealing stage IV sacral ulcer/osteomyelitis and I am seeing this patient for medical management. #1 fecal impaction: Status post fecal disimpaction under general anesthesia. T his was done today by surgery. Patient is supposed to go for diversion colostomy because of nonhealing stage IV sacral ulcer/osteomyelitis. Patient had osteomyelitis of the sacrum back on October,, completed IV antibiotic therapy. Patient was admitted by surgery. She was started on bowel preparation. CBC and BMP for tomorrow was ordered. #2 recent history of sacral stage IV nonhealing ulcer/osteomyelitis: Completed treatment of antibiotics. Plan for divergent colostomy as above. #3 type 2 diabetes mellitus: ADA diet, Accu-Cheks, insulin sliding scale, hold Metformin. Hemoglobin A1c was 5.% today.3 #4 hypertension: Blood pressure stable, continue Norvasc, losartan and HCTZ. #5 COPD/chronic respiratory failure: Stable, on oxygen at 3 L. Plan for albuterol as needed, DuoNeb every 6 hours. #6 chronic atrial fibrillation: Heart rate controlled, she is not on any medication for rate control or anticoagulation. #7 CAD: Stable, continue aspirin, statins and losartan. #8 DVT prophylaxis: SCDs for now. This note was generated with [employer] dictation software. It may contain incorrect words, spelling, and punctuation that were not noted in checking the note before signing. HPI Consult Data Date of Consult: 01/21/21 HPI Narrative Reason for Consultation: Pre and postoperative medical management. HPI Narrative: TATIANA DICKEY, is a 70 F with past medical history as mentioned above who is supposed to go for diverging colostomy for stage IV sacral ulcer, found to have impacted stool status post disimpaction under general anesthesia and patient is being admitted for port preparation and diversion colostomy and I am seeing this patient for current medical consultation. At this time, patient is alert, awake, very hard of hearing. She was not able to provide any history. She denied any pain. She requested cranberry juice. She had a history of type 2 diabetes mellitus and she has been on Metformin, blood sugars has been under control and hemoglobin A1c was 5.3% today. She has history of chronic COPD and chronic hypoxic expiratory failure and she has been on oxygen intermittently at home. She had a history of hypertension which has been under control with Norvasc, HCTZ and losartan. Patient had sacral osteomyelitis on October,, was treated with long-term IV antibiotics. Currently, blood pressure stable, pulse ox is 94% on 3 L, afebrile, heart rate stable. Routine blood work from her last admission on November 11, 2020 revealed hemoglobin of 11.3 g/dL, otherwise unremarkable. Patient will be admitted with plan for diversion colostomy in the next couple of days. [facility] Medical History (Updated 01/21/21 @ 14:[address] 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 Decubitus ulcer of left heel, stage 4 Diabetes Frozen shoulder GERD (gastroesophageal reflux disease) Gout History of MRSA infection History of pressure ulcer History of transesophageal echocardiography (MAR[facility]) HTN (hypertension) Hx of echocardiogram Hx TIA/stroke w/o resid Intertrochanteric fracture of left hip Left humeral fracture Neurogenic bladder Neurogenic bladder Neuropathy Nocturia Osteoporosis PAD (peripheral artery disease) Peripheral vascular disease Tobacco abuse Type II diabetes mellitus Urge incontinence Urinary retention Vitamin D deficiency Wears dentures Home Medications hydrochlorothiazide 12.5 mg PO DAILY 06/16/18 [History Last Taken 02/11/19] losartan 100 mg PO DAILY 06/16/18 [History Last Taken 01/21/21] rosuvastatin 5 mg PO QHS 09/08/18 [History Last Taken 02/11/19] metformin 500 mg PO BID 04/30/20 [History Last Taken Unknown] aspirin 81 mg PO DAILY@0800 11/06/20 [History Last Taken Unknown] cyclobenzaprine 10 mg PO QHS 11/06/20 [History Last Taken Unknown] ipratropium-albuterol 3 ml INHALATION Q4H.RT PRN 11/06/20 [History Last Taken Unknown] multivitamin with minerals 1 each PO DAILY 11/06/20 [History Last Taken Unknown] magnesium hydroxide 30 ml PO DAILY PRN PRN 12/03/20 [History Last Taken Unknown] oxycodone 5 mg PO Q6H 12/03/20 [History Last Taken 01/21/21] acetaminophen 1,000 mg PO TID 01/18/21 [History Last Taken 01/21/21] amlodipine 10 mg PO DAILY 01/18/21 [History Last Taken 01/21/21] nicotine 21 mg TD DAILY 01/18/21 [History Last Taken Unknown] nicotine [Nicoderm CQ] 1 patch TRANSDERMAL DAILY 01/18/21 [History Last Taken Unknown] rosuvastatin [Crestor] 5 mg PO QHS 01/18/21 [History Last Taken Unknown] sennosides-docusate sodium [NATHANIEL-COLACE] 2 tab-cap PO DAILY 01/18/21 [History Last Taken Unknown] sennosides-docusate sodium [NATHANIEL-COLACE] 2 tab-cap PO QHS 01/18/21 [History Last Taken Unknown] vancomycin in 0.9 % sodium chl 1 g IV DAILY 01/18/21 [History Last Taken Unknown] Allergy/AdvReac Type Severity Reaction Status Date / Time amoxicillin [From Augmentin] Allergy Rash Verified 01/21/21 12:47 atorvastatin [From Lipitor] Allergy Other Verified 01/21/21 12:47 clavulanic acid Allergy Rash Verified 01/21/21 12:47 [From Augmentin] gabapentin Allergy Nausea Verified 01/21/21 12:47 lisinopril Allergy PT UNSURE Verified 01/21/21 12:47 OF REACTION mold Allergy PT UNSURE Verified 01/21/21 12:47 OF REACTION pollen extracts Allergy PT UNSURE Verified 01/21/21 12:47 OF REACTION quinapril [From Accupril] Allergy Rash Verified 01/21/21 12:47 ragweed pollen Allergy PT UNSURE Verified 01/21/21 12:47 OF REACTION simvastatin [From Zocor] Allergy PT UNSURE Verified 01/21/21 12:47 OF REACTION tramadol Allergy PT UNSURE Verified 01/21/21 12:47 OF REACTION tuberculin, purified protein Allergy PT UNSURE Verified 01/21/21 12:47 deriva OF REACTION fluoxetine AdvReac Other Verified 01/21/21 12:47 Family History Mother Tuberculosis Father Heart disease CVA (cerebral vascular accident) Sister Multiple sclerosis Brother Heart disease Surgical History History of lumpectomy of right breast History of partial hysterectomy History of right-sided carotid endarterectomy Hx of bladder repair surgery Hx of tonsillectomy Social History Smoking Status: Light Smoker (<10/day) Tobacco: How many years used: 53 second hand exposure: Yes alcohol intake: never substance use type: does not use caffeine: Yes what type of physical activity do you participate in: none frequency: does not exercise ROS Constitutional Constitutional: Denies anorexia, chills, fatigue, fever(s) or malaise Eyes Eyes: Denies blurry vision, change in vision or eye pain ENT HEENT: Denies ear pain, headache(s), nasal congestion or sore throat Cardiovascular Cardiovascular: Denies chest pain, edema, lightheadedness or syncope Respiratory/Chest Respiratory/Chest: Denies cough, dyspnea, productive cough or wheezing Gastrointestinal Gastrointestinal: Reports constipation; Denies abdominal pain, diarrhea, nausea or vomiting Genitourinary Genitourinary: Denies burning urination, dysuria, hematuria or urinary hesitancy Musculoskeletal Musculoskeletal: Denies arthralgias, back pain, joint pain or joint swelling Neurologic Neurologic: Denies focal weakness, headache(s), numbness or seizures Psychiatric Psychiatric: Reports homicidal ideation; Denies anxiety, depression or suicidal ideation Endocrine Endocrinology: Reports polyuria; Denies change in body appearance Hematologic/Lymphatic Hematologic/Lymphatic: Reports other; Denies easy bleeding or easy bruising Allergic/Immunologic Allergic/Immunologic: Denies itchy eyes, throat swelling, tongue swelling, hives, urticaria, eczemia or wheezing Physical Exam Const alert, no apparent distress and no limitations General Appearance: cooperative, comfortable and well kempt HEENT normocephalic, head/scalp atraumatic and moist oral mucous membranes Head and Scalp: normocephalic and atraumatic Eyes PERRL, EOMs intact bilaterally, conjunctivae normal and no scleral icterus General Eye: normal appearance of both eyes Periorbital: periorbital findings normal Neck no lymphadenopathy, supple, no meningeal signs, no JVD and no carotid bruits General: trachea midline Thyroid: thyroid normal Resp normal respiratory effort, normal air movement and clear to auscultation bilaterally Auscultation: Negative for crackles, rales, rhonchi or wheezes Cardio regular rate, regular rhythm, S1 normal heart sound and S2 normal heart sound Peripheral Pulses: pulses 2+ throughout GI normal to inspection, nondistended, normoactive bowel sounds, soft to palpation, non-tender and non-distended; Negative for hepatosplenomegaly Auscultation: normoactive bowel sounds Extremity normal to inspection, full ROM and no clubbing, cyanosis or edema Skin no rashes or lesions noted and no petechiae Skin Narrative: Sacral ulcer. Neuro CN's II-XII intact bilaterally and moves all extremities Sensorium / Orientation: alert Motor Exam: strength 5/5 throughout Psych mental status grossly normal and denies hallucinations Psych Narrative: Flat affect. Lab / Micro Data Labs: Laboratory Results - last 24 hr 01/21/21 01/21/21 01/21/21 12:18 12:35 13:10 Hemoglobin A1c 5.3 Urine Color Yellow Urine Clarity Cloudy Urine pH 6.0 Ur Specific [place] 1.010 Urine Protein 100 H Urine Glucose (UA) Normal Urine Ketones Negative Urine Occult Blood 150 H Urine Nitrite Negative Urine Bilirubin Negative Urine Urobilinogen Normal Ur Leukocyte Esterase 500 H Urine RBC 0 SEEN Urine WBC >100 SEEN Ur Squamous Epith Cells 0 SEEN Urine Bacteria 0 SEEN Urine Mucus 0 SEEN POC Glucose 86 Charges/Coding Multi Select Codes Visit Charges Visit Charges: 56929 Init Hosp L2
[2021-01-21] MEDS: Polyethylene Glycol 3350 BOWEL PREP PO (16:25)
[2021-01-21 17:42] VITALS: BMI 28.2
[2021-01-21] MEDS: 0.9% Normal Saline 1,000 ML 60 ML IV (17:52)
[2021-01-21 18:07] VITALS: BP 128/88; PULSE 95; RESP 16; TEMP 36.6; O2SAT 100
[2021-01-21 19:11] LABS: Bedside Glucose 129 mg/dL (70-110)
[2021-01-21 19:35] VITALS: O2SAT 100
[2021-01-21 22:52] VITALS: BP 123/89; PULSE 86; RESP 16; TEMP 36.6; O2SAT 100
[2021-01-21] MEDS: cycloBENZAPRine HCl 10 MG Tablet PO (22:57)
[2021-01-21] MEDS: Rosuvastatin Calcium 5 MG Tablet PO (22:57)
[2021-01-21] MEDS: 0.9% Saline Lock 10 ML Syringe IV (23:02)
[2021-01-21 23:29] VITALS: O2SAT 93
[2021-01-21 23:35] LABS: Bedside Glucose 91 mg/dL (70-110)
[2021-01-22] VITALS (14 sets, daily range): BP systolic 95–150; BP diastolic 53–100; PULSE 85–120; RESP 16–18; TEMP 36.3–38.2; O2SAT 89–100; BMI 28.0; BMI 28.2
[2021-01-22 04:26] LABS: Bedside Glucose 85 mg/dL (70-110)
--- NOTE | 2021-01-22 06:00 | EKG12_ITS ---
Test Reason : AM EKG Blood Pressure : / mmHG Vent. Rate : 107 BPM Atrial Rate : 107 BPM P-R Int : 128 ms QRS Dur : 084 ms QT Int : 308 ms P-R-T Axes : 000 049 061 degrees QTc Int : 411 ms Sinus tachycardia with Premature atrial complexes Nonspecific T wave abnormality Abnormal ECG Confirmed by BETTY SAUCEDO, CARLOS ([id number]), editor news ROCKY ANGELA ([id number]) on 01/23/2021 9:21:05 AM Referred By: Tung Fortune Confirmed By:CARLOS HERNÁNDEZ MD
[2021-01-22 06:55] LABS: Bedside Glucose 127 mg/dL (70-110)
[2021-01-22 07:10] LABS: Absolute Lymphocyte Count 1.22 X10^3/uL (0.83-4.51); Absolute Neutrophil Count 6.7 X10^3/uL (2.0-7.7); Basophil# 0.07 X10^3/uL; Basophil% 0.8 % (0-1); Eosinophil# 0.32 X10^3/uL; Eosinophils% 3.6 % (0-5); Hematocrit 33.1 % (37-47); Hemoglobin 10.7 g/dL (12.0-15.0); Lymphocyte # 1.22 X10^3/ul (0.83-4.51); Lymphocyte % 13.7 % (19-41); Mean Corp Hgb Conc 32.3 g/dL (32-36); Mean Corpuscular Hgb 28.5 pg (27.0-32.0); Mean Corpuscular Volume 88.3 fL (81-99); Mean Platelet Vol. 9.7 fl (6.2-12.0); Monocyte# 0.61 X10^3/uL; Monocyte% 6.8 % (0-10); NRBC Flagged by Analyzer 0 % (0-5); Neutrophil # 6.66 X10^3/uL (2.7-7.7); Neutrophil % 74.8 % (47-70); Platelet Count 506 K/mm3 (150-450); RBC Distribution Width CV 14.4 % (11.6-14.6); RBC Distribution Width SD 45.9 fl (35.1-43.9); Red Blood Count 3.75 M/mm3 (4.2-5.4); White Blood Count 8.9 K/mm3 (4.4-11.0)
[2021-01-22 07:46] LABS: Anion Gap 8 (5-15); BUN 7 mg/dL (7-18); BUN/Creat Ratio 38.7 RATIO (10-20); Calcium,Total 8.4 mg/dL (8.5-10.1); Chloride 101 mmol/L (98-107); Creatinine, Serum 0.18 mg/dL (0.55-1.02); EST Glomerular Filtration Rate 417 mL/min (>60); Est Glom Filt Rate - Afr Amer 504 mL/min (>60); Estimated Creatinine Clearance 44.56 ml/min; Glucose 98 mg/dL (74-106); Potassium 2.5 mmol/L (3.5-5.1); Sodium Level 139 mmol/L (136-145)
--- NOTE | 2021-01-22 07:54 | NURSING ---
SCOOBY Nunez and Dr Francois aware of K+ 2.5 this am.
--- NOTE | 2021-01-22 08:33 | NURSING ---
wound photo: sacrum
[2021-01-22] MEDS: Potassium Chloride 10mEq/100mL 10 MEQ/100 ML IV.SOLN. 100 MEQ IV BOLUS ×4 (08:39→11:57)
--- NOTE | 2021-01-22 09:49 | PN.HOSP_ITS ---
Objective Data Objective Data Vital Signs: Vital Signs Temp Pulse Resp BP Pulse Ox 98.1 F 89 16 98/53 L 94 01/22/21 04:11 01/22/21 04:11 01/22/21 04:11 01/22/21 04:11 01/22/21 07:32 Oxygen Flow Rate (L/min) 2 Oxygen Delivery Method Nasal Cannula Weight: 74.6 kg Body Mass Index (BMI) 28.0 Finger Stick Blood Glucose 156 Intake & Output: Intake and Output for Last 24 Hours 01/20/21 01/21/21 01/22/21 23:59 23:59 23:59 Intake Total 609.33 / 859.33 1061 / 1061 Output Total 550 / 550 Balance 609.33 / 509.33 511 / 511 Lab / Micro Data Result Diagrams: 01/22/21 06:20 01/22/21 06:20 Labs: Laboratory Results - last 24 hr 01/21/21 01/21/21 01/21/21 12:18 12:35 13:10 WBC RBC Hgb Hct MCV MCH MCHC RDW Std Deviation RDW Coeff of Mirza Plt Count MPV Immature Gran % (Auto) Neut % (Auto) Lymph % (Auto) Nye % (Auto) Eos % (Auto) Baso % (Auto) Absolute Neuts (auto) Absolute Lymphs (auto) Nucleated RBC % Sodium Potassium Chloride Carbon Dioxide Anion Gap BUN Creatinine Estim Creat Clear Calc Est GFR (MDRD) Af Amer Est GFR (MDRD) Non-Af BUN/Creatinine Ratio Glucose Hemoglobin A1c 5.3 Calcium Urine Color Yellow Urine Clarity Cloudy Urine pH 6.0 Ur Specific [place] 1.010 Urine Protein 100 H Urine Glucose (UA) Normal Urine Ketones Negative Urine Occult Blood 150 H Urine Nitrite Negative Urine Bilirubin Negative Urine Urobilinogen Normal Ur Leukocyte Esterase 500 H Urine RBC 0 SEEN Urine WBC >100 SEEN Ur Squamous Epith Cells 0 SEEN Urine Bacteria 0 SEEN Urine Mucus 0 SEEN POC Glucose 86 01/21/21 01/21/21 01/22/21 17:58 23:01 04:21 WBC RBC Hgb Hct MCV MCH MCHC RDW Std Deviation RDW Coeff of Mirza Plt Count MPV Immature Gran % (Auto) Neut % (Auto) Lymph % (Auto) Nye % (Auto) Eos % (Auto) Baso % (Auto) Absolute Neuts (auto) Absolute Lymphs (auto) Nucleated RBC % Sodium Potassium Chloride Carbon Dioxide Anion Gap BUN Creatinine Estim Creat Clear Calc Est GFR (MDRD) Af Amer Est GFR (MDRD) Non-Af BUN/Creatinine Ratio Glucose Hemoglobin A1c Calcium Urine Color Urine Clarity Urine pH Ur Specific [place] Urine Protein Urine Glucose (UA) Urine Ketones Urine Occult Blood Urine Nitrite Urine Bilirubin Urine Urobilinogen Ur Leukocyte Esterase Urine RBC Urine WBC Ur Squamous Epith Cells Urine Bacteria Urine Mucus POC Glucose 129 H 91 85 01/22/21 01/22/21 01/22/21 06:20 06:20 06:48 WBC 8.9 RBC 3.75 L Hgb 10.7 L Hct 33.1 L MCV 88.3 MCH 28.5 MCHC 32.3 RDW Std Deviation 45.9 H RDW Coeff of Mirza 14.4 Plt Count 506 H MPV 9.7 Immature Gran % (Auto) 0.300 Neut % (Auto) 74.8 H Lymph % (Auto) 13.7 L Nye % (Auto) 6.8 Eos % (Auto) 3.6 Baso % (Auto) 0.8 Absolute Neuts (auto) 6.7 Absolute Lymphs (auto) 1.22 Nucleated RBC % 0 Sodium 139 Potassium 2.5 L* Chloride 101 Carbon Dioxide 30.0 Anion Gap 8 BUN 7 Creatinine 0.18 L Estim Creat Clear Calc 44.56 Est GFR (MDRD) Af Amer 504 Est GFR (MDRD) Non-Af 417 BUN/Creatinine Ratio 38.7 H Glucose 98 Hemoglobin A1c Calcium 8.4 L Urine Color Urine Clarity Urine pH Ur Specific [place] Urine Protein Urine Glucose (UA) Urine Ketones Urine Occult Blood Urine Nitrite Urine Bilirubin Urine Urobilinogen Ur Leukocyte Esterase Urine RBC Urine WBC Ur Squamous Epith Cells Urine Bacteria Urine Mucus POC Glucose 127 H Assessment & Plan Assessment/Plan (1) Ischemia of right lower extremity:
[2021-01-22 10:55] LABS: Magnesium 1.5 mg/dL (1.6-2.6)
[2021-01-22] MEDS: Morphine 2 MG/ML Syringe IV (11:22)
--- NOTE | 2021-01-22 11:35 | CASEMGMT ---
Social Work Note SW updated pt that is from SNF. CHRISSY reviewed address, address is listed as being from [facility]. CHRISSY placed a call to Beckie at [facility]. Beckie states pt was skilled, will need pre-cert to return. Beckie states pt can return to [facility] under Medicaid though. Beckie states the family was wanting to take pt home after pt had the Colostomy. Beckie states pt was total care at [facility] and pt is aware that pt would be total care if pt returns home. Beckie states that the plan was for the pt to get the Colostomy and then have [facility] train the family. CHRISSY informed Beckie that [facility] staff could also train the family on the Colostomy if they wanted pt to return home. Beckie states she is not sure if pt still had wound vac and states that if pt needed the wound vac, then the family was not going to be able to take pt home as they couldn't manage the wound vac. CHRISSY informed Beckie that this worker will speak with pt's family to determine discharge plans and then this worker will keep her updated. Beckie states understanding. CHRISSY reviewed chart. pt is very [place]IT[place]. Pt's William is present at [facility]. SW in to speak with William and pt. William confirms pt came from [facility] and has been there for about two months. William states his daughter Chloé handles all of that and requested this worker speak to her about discharge plans. William states Chloé will be at [facility] around 12:30pm. SW to speak with Chloé once she arrives at [facility]. SW to continue to follow. Plan: KELECHI Newman DEPARTMENTAL BUYER, VALVE FITTER
[2021-01-22 11:46] LABS: Bedside Glucose 128 mg/dL (70-110)
--- NOTE | 2021-01-22 12:01 | NURSING ---
IV mag dose not on unit, pharmacy called at this time.
--- NOTE | 2021-01-22 13:00 | COL_PTH ---
PATIENT: TATIANA DICKEY LOC: MS3 U#:[id number] AGE/SX: 70/F ROOM: NE311 RE01/23/[address]: Dr. Puneet Mi DO : 1950 BED: 1 DIS: 01/24/2021 SPEC #: [id number] RECD: 01/23/21 08:36 STATUS: JOÃO REShi #: [id number] TIANNA: 01/22/21 13:[address]: Puneet Mi DEPT: SURGICAL PATHOLOGY RECD BY: Mary Vuong ENTERED: 01/23/21 11:37 SP TYPE: COLON OTHR DR: MD Dr. Inna Russo MD Dr. Paul Nielsen, MD Tissues: Colon, NOS Procedures: Surgery Specimen Level V HEADER OPERATION: Laparoscopic sigmoid colectomy with colostomy PRE-OP DIAGNOSIS: Pressure ulcer of buttock TISSUE SUBMITTED: Sigmoid colon MICROSCOPIC DIAGNOSIS Sigmoid colon, colectomy: Segment of colon, no pathologic diagnosis. One benign pericolonic lymph node. See comment. CLAIRE:maame 01/25/2021 COMMENT As per EMR, the patient has pressure ulcer buttock, redundant colon and underwent colostomy: MICROSCOPIC DESCRIPTION Slides are reviewed. GROSS DESCRIPTION Received in fixative is one container labeled with the patient's name and designated sigmoid colon. The specimen consists of a segment of colon with attached pericolonic adipose tissue measuring 40 cm in length. One resection margin is open and the other resection margin is stapled. The lumen contains fecal material. No mucosal lesion is identified. More dictation will follow after fixation. / CLAIRE:maame 01/23/21 No mucosal lesion is identified. Sections of the pericolonic adipose tissue do not reveal an obviously enlarged lymph node. Sections do not reveal any mass lesion. Production Supervisor sections are submitted in six cassettes as follows: 1 - stapled resection margin, 2 - opposite margin, 3-5 - colon, 6 - pericolonic adipose tissue. / CLAIRE:maame 01/24/21 TC:5 CPT: 01229
[2021-01-22 13:33] LABS: Potassium 5.8 mmol/L (3.5-5.1)
[2021-01-22 14:05] LABS: Potassium 3.7 mmol/L (3.5-5.1)
--- NOTE | 2021-01-22 15:10 | CASEMGMT ---
Social Work Note SW in to pt's room. Pt and family are not in pt's room at this time. SW will follow up with pt and pt's family tomorrow to continue discussion of discharge plans. SW reviewed chart. Pt has CM Emilie Mcleod. SW placed a call to Emilie Phan states pt's CM is now Surekha Daniel ([phone]). CHRISSY placed a call to Surekha and updated her on pt's admission to [facility]. Surekha asked to be updated when pt discharges and to where and asked for discharge paperwork to be faxed ([phone]). CHRISSY will speak with pt and pt's family tomorrow. Plan: KELECHI Newman NETWORK DEVELOPMENT COORDINATOR, TOPOGRAPHIC COMPUTATOR
[2021-01-22] MEDS: Bupiv/Epi 0.25% 30 ML Vial (15:45)
--- NOTE | 2021-01-22 15:53 | OP.PCM_ITS ---
Problems Associated Problem List Diagnoses (1) Osteomyelitis of pelvic region: (2) Pressure ulcer of sacral region, stage 4: Report of Operation Date of Procedure: 01/22/21 Pre-Operative Diagnosis: Debility with sacral ulcer and osteomyelitis Post-Operative Diagnosis: Same Surgery/Procedure Performed:: Laparoscopic sigmoid colectomy with end colostomy and Devora procedure Specimen's removed: Sigmoid colon Description of Procedure: Patient was brought back to the operating room and general anesthesia was induced. The abdomen was prepped and draped in usual sterile fashion. Superior to the umbilicus a midline incision was made and deepened to the fascia was was elevated and incised. A port was placed into the abdomen was inflated to 13 mmHg. The abdomen was inspected there were no injuries from entry. In the right lower quadrant 12 mm port was placed under direct visualization. In the right lateral abdomen a 5 mm port was placed under direct visualization. The patient was placed in the Trendelenburg position and the rectum was identified. A window was made in the mesentery of the sigmoid and dissection was carried distally using Enseal. The rectum was then divided using an [place] stapler. There was good hemostasis. The sigmoid colon was then dissected free proximally until the entire sigmoid colon which was very redundant was divided from its mesentery. There is good hemostasis. Next the skin overlying the planned ostomy site was removed using electrocautery. Subcutaneous tissues were dissected down to the fascia and a cruciate incision was made in the fascia. The muscle was divided and the posterior sheath was divided in the same fashion. The sigmoid colon was delivered through the incision until the intact mesentery was reached. Next the midline fascia was closed with 0 Vicryl suture as well as the right lower quadrant fascia. The incisions were injected with local anesthetic. The incisions were then closed with 4-0 Monocryl suture as well as Steri-Strips and bandages. Next the colon was divided and there was good blood flow at the colostomy site. The colostomy was then matured to the skin using interrupted 3-0 Vicryl sutures. The colostomy device was then placed over the colostomy. The patient was then cleansed and the sacral wound was repacked and the Huston was removed and replaced with a fresh Huston catheter. Patient was then awoken and taken to PACU in stable condition and tolerated the procedure well. Admit VTE Documentation VTE Mechan Device Prophylaxis: SCD's
[2021-01-22 16:46] LABS: Bedside Glucose 89 mg/dL (70-110)
[2021-01-22] MEDS: oxyCODONE 5 MG Tablet PO ×2 (17:52→22:19)
--- NOTE | 2021-01-22 18:53 | PN.HOSP_ITS ---
Subjective Subjective Patient was seen and examined today, she underwent a diverting colostomy today, patient is deaf and communicates with written word. Patient does not appear to be in any distress at this time Objective Data Objective Data Vital Signs: Vital Signs Temp Pulse Resp BP Pulse Ox 97.9 F 95 16 110/87 H 99 01/22/21 17:45 01/22/21 17:45 01/22/21 17:45 01/22/21 17:45 01/22/21 17:45 Oxygen Flow Rate (L/min) 2 Oxygen Delivery Method Nasal Cannula Weight: 74.6 kg Body Mass Index (BMI) 28.0 Finger Stick Blood Glucose 86 Intake & Output: Intake and Output for Last 24 Hours 01/20/21 01/21/21 01/22/21 23:59 23:59 23:59 Intake Total 609.33 / 859.33 2626 / 2626 Output Total 850 / 850 Balance 609.33 / 509.33 1776 / 1776 Lab / Micro Data Result Diagrams: 01/22/21 06:20 01/22/21 13:50 Labs: Laboratory Results - last 24 hr 01/21/21 01/21/21 01/22/21 17:58 23:01 04:21 WBC RBC Hgb Hct MCV MCH MCHC RDW Std Deviation RDW Coeff of Mirza Plt Count MPV Immature Gran % (Auto) Neut % (Auto) Lymph % (Auto) Richardson % (Auto) Eos % (Auto) Baso % (Auto) Absolute Neuts (auto) Absolute Lymphs (auto) Nucleated RBC % Sodium Potassium Chloride Carbon Dioxide Anion Gap BUN Creatinine Estim Creat Clear Calc Est GFR (MDRD) Af Amer Est GFR (MDRD) Non-Af BUN/Creatinine Ratio Glucose Calcium Magnesium POC Glucose 129 H 91 85 01/22/21 01/22/21 01/22/21 06:20 06:20 06:20 WBC 8.9 RBC 3.75 L Hgb 10.7 L Hct 33.1 L MCV 88.3 MCH 28.5 MCHC 32.3 RDW Std Deviation 45.9 H RDW Coeff of Mirza 14.4 Plt Count 506 H MPV 9.7 Immature Gran % (Auto) 0.300 Neut % (Auto) 74.8 H Lymph % (Auto) 13.7 L Richardson % (Auto) 6.8 Eos % (Auto) 3.6 Baso % (Auto) 0.8 Absolute Neuts (auto) 6.7 Absolute Lymphs (auto) 1.22 Nucleated RBC % 0 Sodium 139 Potassium 2.5 L* Chloride 101 Carbon Dioxide 30.0 Anion Gap 8 BUN 7 Creatinine 0.18 L Estim Creat Clear Calc 44.56 Est GFR (MDRD) Af Amer 504 Est GFR (MDRD) Non-Af 417 BUN/Creatinine Ratio 38.7 H Glucose 98 Calcium 8.4 L Magnesium 1.5 L POC Glucose 01/22/21 01/22/21 01/22/21 06:48 11:33 13:15 WBC RBC Hgb Hct MCV MCH MCHC RDW Std Deviation RDW Coeff of Mirza Plt Count MPV Immature Gran % (Auto) Neut % (Auto) Lymph % (Auto) Richardson % (Auto) Eos % (Auto) Baso % (Auto) Absolute Neuts (auto) Absolute Lymphs (auto) Nucleated RBC % Sodium Potassium 5.8 H Chloride Carbon Dioxide Anion Gap BUN Creatinine Estim Creat Clear Calc Est GFR (MDRD) Af Amer Est GFR (MDRD) Non-Af BUN/Creatinine Ratio Glucose Calcium Magnesium POC Glucose 127 H 128 H 01/22/21 01/22/21 13:50 16:39 WBC RBC Hgb Hct MCV MCH MCHC RDW Std Deviation RDW Coeff of Mirza Plt Count MPV Immature Gran % (Auto) Neut % (Auto) Lymph % (Auto) Richardson % (Auto) Eos % (Auto) Baso % (Auto) Absolute Neuts (auto) Absolute Lymphs (auto) Nucleated RBC % Sodium Potassium 3.7 Chloride Carbon Dioxide Anion Gap BUN Creatinine Estim Creat Clear Calc Est GFR (MDRD) Af Amer Est GFR (MDRD) Non-Af BUN/Creatinine Ratio Glucose Calcium Magnesium POC Glucose 89 Physical Exam Const alert, no apparent distress, average body habitus and healthy appearing Constitutional Narrative: Patient is deaf HEENT head/scalp atraumatic and moist oral mucous membranes Head and Scalp: normocephalic Eyes PERRL, EOMs intact bilaterally and conjunctivae normal Neck supple and no JVD Resp normal respiratory effort, no retractions, no use of accessory muscles and clear to auscultation bilaterally Auscultation: Negative for crackles, rales, rhonchi or wheezes Cardio S1 normal heart sound, S2 normal heart sound, no murmurs and no rub Palpation: normal PMI Rhythm: abnormal rhythm irregularly irregular Extremity normal to inspection and no clubbing, cyanosis or edema Skin no rashes or lesions noted and skin turgor normal Neuro CN's II-XII intact bilaterally and no focal motor deficits Neuro Narrative: Patient is deaf Sensorium / Orientation: awake and alert Psych affect normal Assessment & Plan Assessment/Plan (1) Decubitus ulcer: QUALIFIERS: Pressure injury location: buttock Pressure injury stage: unstageable Laterality: unspecified laterality Qualified Code(s): L89.300 - Pressure ulcer of unspecified buttock, unstageable PLAN: 1. Type 2 diabetes-patient's blood sugars will be monitored #2 essential hypertension #3 chronic obstructive pulmonary disease #4 permanent atrial fibrillation #5 coronary artery disease #6 stage IV sacral pressure ulceration #7 chronic debility-patient currently resides in an extended care facility #8 chronic back pain #9 cerebral vascular disease #10 peripheral vascular disease Visit Charges OBSV E&M: 45488 Subsequent observation care L3
[2021-01-22] MEDS: Senna/Docusate Sodium 1 Tablet 2 TABLET PO (22:18)
[2021-01-22] MEDS: Rosuvastatin Calcium 5 MG Tablet PO (22:19)
[2021-01-22] MEDS: cycloBENZAPRine HCl 10 MG Tablet PO (22:19)
[2021-01-22] MEDS: Insulin Lispro 100 UNIT/ML INSULN.PEN SC (22:25)
[2021-01-22 22:26] LABS: Bedside Glucose 193 mg/dL (70-110)
[2021-01-22] MEDS: Acetaminophen 325 MG Tablet 650 MG PO (22:49)
[2021-01-23] VITALS (7 sets, daily range): BP systolic 91–137; BP diastolic 29–72; PULSE 87–115; RESP 16–24; TEMP 36.4–37.6; O2SAT 91–100; BMI 28.2
[2021-01-23 05:46] LABS: Absolute Lymphocyte Count 1.34 X10^3/uL (0.83-4.51); Basophil# 0.04 X10^3/uL; Basophil% 0.3 % (0-1); Eosinophil# 0.07 X10^3/uL; Eosinophils% 0.5 % (0-5); Hematocrit 32.6 % (37-47); Hemoglobin 10.1 g/dL (12.0-15.0); Lymphocyte # 1.34 X10^3/ul (0.83-4.51); Lymphocyte % 9.4 % (19-41); Mean Corpuscular Hgb 27.4 pg (27.0-32.0); Mean Corpuscular Volume 88.6 fL (81-99); Mean Platelet Vol. 9.6 fl (6.2-12.0); Monocyte# 0.72 X10^3/uL; Monocyte% 5.1 % (0-10); NRBC Flagged by Analyzer 0 % (0-5); Neutrophil # 11.96 X10^3/uL (2.7-7.7); Neutrophil % 84.3 % (47-70); Platelet Count 496 K/mm3 (150-450); RBC Distribution Width CV 14.6 % (11.6-14.6); RBC Distribution Width SD 47.1 fl (35.1-43.9); Red Blood Count 3.68 M/mm3 (4.2-5.4); White Blood Count 14.2 K/mm3 (4.4-11.0)
[2021-01-23] MEDS: oxyCODONE 5 MG Tablet PO ×3 (06:00→23:00)
[2021-01-23 06:16] LABS: Anion Gap 7 (5-15); BUN 5 mg/dL (7-18); BUN/Creat Ratio 16.7 RATIO (10-20); Calcium,Total 8.3 mg/dL (8.5-10.1); Chloride 102 mmol/L (98-107); EST Glomerular Filtration Rate 234 mL/min (>60); Est Glom Filt Rate - Afr Amer 283 mL/min (>60); Estimated Creatinine Clearance 44.56 ml/min; Glucose 138 mg/dL (74-106); Potassium 3.5 mmol/L (3.5-5.1); Sodium Level 136 mmol/L (136-145)
[2021-01-23] MEDS: Insulin Lispro 100 UNIT/ML INSULN.PEN SC ×2 (06:21→11:36)
[2021-01-23 06:30] LABS: Bedside Glucose 153 mg/dL (70-110)
--- NOTE | 2021-01-23 06:45 | PCM.PN.SRG ---
Subjective Subjective Patient did have some tachycardia and low-grade fever overnight. She did tolerate some clear liquids no nausea or vomiting. Objective Data Objective Data Vital Signs: Vital Signs Temp Pulse Resp BP Pulse Ox 99.7 F H 102 H 18 117/67 100 01/23/21 06:11 01/23/21 06:11 01/23/21 06:11 01/23/21 06:11 01/23/21 06:11 Oxygen Flow Rate (L/min) 1 Oxygen Delivery Method Nasal Cannula Weight: 164 lb 7.437 oz Body Mass Index (BMI) 28.0 Finger Stick Blood Glucose 86 Intake & Output: Intake and Output for Last 24 Hours 01/21/21 01/22/21 01/23/21 23:59 23:59 23:59 Intake Total 609.33 / 859.33 2626 / 2626 907.5 / 907.5 Output Total 850 / 850 850 / 850 Balance 609.33 / 509.33 1776 / 1776 57.5 / 57.5 Lab / Micro Data Result Diagrams: 01/23/21 05:16 01/23/21 05:16 Labs: Laboratory Results - last 24 hr 01/22/21 01/22/21 01/22/21 06:20 06:20 06:20 WBC 8.9 RBC 3.75 L Hgb 10.7 L Hct 33.1 L MCV 88.3 MCH 28.5 MCHC 32.3 RDW Std Deviation 45.9 H RDW Coeff of Mirza 14.4 Plt Count 506 H MPV 9.7 Immature Gran % (Auto) 0.300 Neut % (Auto) 74.8 H Lymph % (Auto) 13.7 L [place] % (Auto) 6.8 Eos % (Auto) 3.6 Baso % (Auto) 0.8 Absolute Neuts (auto) 6.7 Absolute Lymphs (auto) 1.22 Nucleated RBC % 0 Sodium 139 Potassium 2.5 L* Chloride 101 Carbon Dioxide 30.0 Anion Gap 8 BUN 7 Creatinine 0.18 L Estim Creat Clear Calc 44.56 Est GFR (MDRD) Af Amer 504 Est GFR (MDRD) Non-Af 417 BUN/Creatinine Ratio 38.7 H Glucose 98 Calcium 8.4 L Magnesium 1.5 L POC Glucose 01/22/21 01/22/21 01/22/21 06:48 11:33 13:15 WBC RBC Hgb Hct MCV MCH MCHC RDW Std Deviation RDW Coeff of Mirza Plt Count MPV Immature Gran % (Auto) Neut % (Auto) Lymph % (Auto) [place] % (Auto) Eos % (Auto) Baso % (Auto) Absolute Neuts (auto) Absolute Lymphs (auto) Nucleated RBC % Sodium Potassium 5.8 H Chloride Carbon Dioxide Anion Gap BUN Creatinine Estim Creat Clear Calc Est GFR (MDRD) Af Amer Est GFR (MDRD) Non-Af BUN/Creatinine Ratio Glucose Calcium Magnesium POC Glucose 127 H 128 H 01/22/21 01/22/21 01/22/21 13:50 16:39 22:21 WBC RBC Hgb Hct MCV MCH MCHC RDW Std Deviation RDW Coeff of Mirza Plt Count MPV Immature Gran % (Auto) Neut % (Auto) Lymph % (Auto) [place] % (Auto) Eos % (Auto) Baso % (Auto) Absolute Neuts (auto) Absolute Lymphs (auto) Nucleated RBC % Sodium Potassium 3.7 Chloride Carbon Dioxide Anion Gap BUN Creatinine Estim Creat Clear Calc Est GFR (MDRD) Af Amer Est GFR (MDRD) Non-Af BUN/Creatinine Ratio Glucose Calcium Magnesium POC Glucose 89 193 H 01/23/21 01/23/21 01/23/21 05:16 05:16 06:20 WBC 14.2 H RBC 3.68 L Hgb 10.1 L Hct 32.6 L MCV 88.6 MCH 27.4 MCHC 31.0 L RDW Std Deviation 47.1 H RDW Coeff of Mirza 14.6 Plt Count 496 H MPV 9.6 Immature Gran % (Auto) 0.400 Neut % (Auto) 84.3 H Lymph % (Auto) 9.4 L [place] % (Auto) 5.1 Eos % (Auto) 0.5 Baso % (Auto) 0.3 Absolute Neuts (auto) 12.0 H Absolute Lymphs (auto) 1.34 Nucleated RBC % 0 Sodium 136 Potassium 3.5 Chloride 102 Carbon Dioxide 27.0 Anion Gap 7 BUN 5 L Creatinine 0.30 L Estim Creat Clear Calc 44.56 Est GFR (MDRD) Af Amer 283 Est GFR (MDRD) Non-Af 234 BUN/Creatinine Ratio 16.7 Glucose 138 H Calcium 8.3 L Magnesium POC Glucose 153 H Physical Exam Const no apparent distress Resp normal respiratory effort GI soft to palpation and non-tender Inspection: Negative for abdominal distention Assessment & Plan Assessment/Plan (1) S/P laparoscopic colectomy: PLAN: The patient had sigmoid colectomy with colostomy yesterday afternoon. Her abdomen is soft and nondistended today and her stoma appears pink and healthy. The patient was started on clear liquids. She may advance her diet once she starts having gas per colostomy. The patient's rectal ulcer will be redressed today. The patient may begin discharge planning. I believe the patient's fever is related to atelectasis. The patient does not appear to be taking deep breaths. Tung Fortune MD Pager: [facility] [address] [place] [address], [address] [place] [address] Office:
[2021-01-23] MEDS: Ipratropium/Albuterol Sulfate 3 ML AMPUL.NEB INHALATION ×2 (07:38→13:32)
--- NOTE | 2021-01-23 08:30 | NURSING ---
Stoma to the left lower abdomen is beefy red and moist. mild edema noted. no stool or flatus noted. small amount of serosanguineous drainage noted in the appliance. op site dressings are D&I. patient denies much discomfort at this time. will monitor. colostomy booklet in room. will review booklet and start ostomy teaching with pts and daughter.
[2021-01-23] MEDS: Aspirin 81 MG TAB.CHEW PO (08:38)
[2021-01-23] MEDS: Losartan Potassium 100 MG Tablet PO (08:38)
[2021-01-23] MEDS: amLODIPine 10 MG Tablet PO (08:38)
[2021-01-23] MEDS: hydroCHLOROthiazide 12.5mg 12.5 MG PO (08:38)
[2021-01-23] MEDS: metFORMIN (XR) 500 MG Tablet PO ×2 (08:43→16:59)
[2021-01-23] MEDS: Acetaminophen 325 MG Tablet 650 MG PO ×2 (08:43→15:40)
[2021-01-23] MEDS: DAKIN'S SOL HALF STRENGTH (=0.25%) 1 APPLIC TOPICAL (10:17)
[2021-01-23] MEDS: 0.9% Saline Lock 10 ML Syringe IV (10:24)
[2021-01-23] MEDS: Morphine 2 MG/ML Syringe IV (10:24)
--- NOTE | 2021-01-23 11:28 | NURSING ---
Script on the front of the chart to be signed for ostomy supplies. Pt may possibly discharge home rather than back to the care home per family.
[2021-01-23 11:46] LABS: Bedside Glucose 166 mg/dL (70-110)
--- NOTE | 2021-01-23 12:04 | CASEMGMT ---
Social Work Note SW went past pt's room, no family present in room. CHRISSY placed a call to pt's daughter Chloé. CHRISSY introduced self and role at [facility]. Chloé states that she was waiting for a call from Jacinda LOWE at [facility] regarding getting pt's HHC set up. Chloé states Jacinda was working on getting RN arranged through [facility]. Chloé states that if HHC is able to be arranged for pt, pt will be returning home at discharge. CHRISSY asked Chloé if she is aware that pt is total care and Chloé states she is aware. Chloé states this has been pt's baseline for years now. Chloé states that pt will have 24/7 care between pt's , pt's sister, Chloé, and Chloé's daughter. Chloé states that she received a call from Surekha pt's CM stating she arranged for services for pt 7 days a week for minimum 2 hours a day. Chloé states that pt has a Purewick system in the home, hospital bed, Oxygen, toilet to tub transfer, wheelchair, and a [place] Lift. Chloé states that pt is also active with [facility]. Jacinda states that if HHC is able to be arranged for pt before pt discharges from [facility], pt will be returning home. Chloé states if HHC is not able to be arranged, pt will return to [facility] until HHC can be arranged. Chloé states that she will be coming in to [facility] to learn about to Colostomy Teaching. CHRISSY informed Chloé that this worker will be calling Jacinda LOWE at [facility] to get additional information as well from her. Chloé states understanding. CHRISSY placed a call to Beckie at [facility] and asked for CHRISSY Monaco to call this worker, Beckie will relay the message. CHRISSY received call from Jacinda LOWE at [facility]. Jacinda states that she was working with Serina from [facility] regarding pt's HHC and Serina had called Jacinda earlier this week stating they would need a new referral. Jacinda states that pt's family preference was [facility] for HHC. CHRISSY updated RN CM. CHRISSY placed a call to pt's CM Surekha and left message asking for confirmation on pt's in home services that she has arranged. SW waiting for call back. Plan: Home with HHC if HHC can be arranged Jennifer Newman MSW, TUNNEL MINER
--- NOTE | 2021-01-23 12:43 | DS.PCM_ITS ---
Providers Date of Admission: 01/23/21 Primary Care Physician: Dr. Tawanda Sood MD Consultations 01/21/21 14:17 Consult: Hospitalist Routine Consulting Provider: Inna Maxwell Reason for Consult: medical management EMERGENT Consult: No MD Notified: Yes Date Notified:: 01/21/21 Time Notified: 14:17 Method of Notification: Verbal 01/21/21 21:26 Consult: Onc/Wound/absorption and adsorption engineer Routine Comment: Diagnosis Discharge Diagnosis (1) S/P laparoscopic colectomy: Status: Acute Code(s): Z90.49 - Acquired absence of other specified parts of digestive tract (2) Debility: Status: Chronic Code(s): R53.81 - Other malaise (3) Pressure ulcer of sacral region, stage 4: Status: Chronic Code(s): L89.154 - Pressure ulcer of sacral region, stage 4 (4) Osteomyelitis of pelvic region: Status: Chronic Code(s): M86.9 - Osteomyelitis, unspecified Medications at Discharge Home Medications hydrochlorothiazide 12.5 mg PO DAILY 06/16/18 losartan 100 mg PO DAILY 06/16/18 rosuvastatin 5 mg PO QHS 09/08/18 metformin 500 mg PO BID 04/30/20 aspirin 81 mg PO DAILY@0800 11/06/20 cyclobenzaprine 10 mg PO QHS 11/06/20 ipratropium-albuterol 3 ml INHALATION Q4H.RT PRN 11/06/20 multivitamin with minerals 1 each PO DAILY 11/06/20 magnesium hydroxide 30 ml PO DAILY PRN PRN 12/03/20 amlodipine 10 mg PO DAILY 01/18/21 nicotine 21 mg TD DAILY 01/18/21 nicotine [Nicoderm CQ] 1 patch TRANSDERMAL DAILY 01/18/21 sennosides-docusate sodium 2 tab-cap PO QHS 01/18/21 vancomycin in 0.9 % sodium chl 1 g IV DAILY 01/18/21 oxycodone 5 mg PO Q4H PRN PRN 7 Days #15 tab 01/24/21 Hospital Course Summary of Care Provided Hospital Course: The patient was admitted and then taken for surgery and disimpacted due to a large amount of solid stool. She was admitted after surgery and bowel prep was performed. The patient was then taken the following day for laparoscopic sigmoid colectomy with colostomy. The patient tolerated the procedure well and was started on a diet. When she was tolerating diet she was discharged to a snf facility. ABG / Lab / Microbiology Data Result Diagrams: 01/23/21 05:16 01/23/21 05:16 Laboratory: Laboratory Results - last 24 hr 01/22/21 01/22/21 01/22/21 13:15 13:50 16:39 WBC RBC Hgb Hct MCV MCH MCHC RDW Std Deviation RDW Coeff of Mirza Plt Count MPV Immature Gran % (Auto) Neut % (Auto) Lymph % (Auto) [place] % (Auto) Eos % (Auto) Baso % (Auto) Absolute Neuts (auto) Absolute Lymphs (auto) Nucleated RBC % Sodium Potassium 5.8 H 3.7 Chloride Carbon Dioxide Anion Gap BUN Creatinine Estim Creat Clear Calc Est GFR (MDRD) Af Amer Est GFR (MDRD) Non-Af BUN/Creatinine Ratio Glucose Calcium POC Glucose 89 01/22/21 01/23/21 01/23/21 22:21 05:16 05:16 WBC 14.2 H RBC 3.68 L Hgb 10.1 L Hct 32.6 L MCV 88.6 MCH 27.4 MCHC 31.0 L RDW Std Deviation 47.1 H RDW Coeff of Mirza 14.6 Plt Count 496 H MPV 9.6 Immature Gran % (Auto) 0.400 Neut % (Auto) 84.3 H Lymph % (Auto) 9.4 L [place] % (Auto) 5.1 Eos % (Auto) 0.5 Baso % (Auto) 0.3 Absolute Neuts (auto) 12.0 H Absolute Lymphs (auto) 1.34 Nucleated RBC % 0 Sodium 136 Potassium 3.5 Chloride 102 Carbon Dioxide 27.0 Anion Gap 7 BUN 5 L Creatinine 0.30 L Estim Creat Clear Calc 44.56 Est GFR (MDRD) Af Amer 283 Est GFR (MDRD) Non-Af 234 BUN/Creatinine Ratio 16.7 Glucose 138 H Calcium 8.3 L POC Glucose 193 H 01/23/21 01/23/21 06:20 11:35 WBC RBC Hgb Hct MCV MCH MCHC RDW Std Deviation RDW Coeff of Mirza Plt Count MPV Immature Gran % (Auto) Neut % (Auto) Lymph % (Auto) [place] % (Auto) Eos % (Auto) Baso % (Auto) Absolute Neuts (auto) Absolute Lymphs (auto) Nucleated RBC % Sodium Potassium Chloride Carbon Dioxide Anion Gap BUN Creatinine Estim Creat Clear Calc Est GFR (MDRD) Af Amer Est GFR (MDRD) Non-Af BUN/Creatinine Ratio Glucose Calcium POC Glucose 153 H 166 H D/C Instructions Discharge Diet: Light diet - advance as tolerated Discharge Activity: Return to Normal Activity May shower in (days): 1 Call your doctor if your incision/area has: Continuous Slow Oozing, Sudden Increased Bleeding, Increased Pain/ Swelling, Increased Redness, Foul Smelling Discharge and Swelling at the incision site Call your doctor if you observe: Fever of 101 or Higher and Inability to have a bowel movement Change Dressing in: 2 days Cleanse incision/area with: Soap & Water Please Follow Up With: Tung Fortune MD When: as needed, call [phone] with any questions or concerns. Meaningful Use Info Meaningful Use Diagnoses (Choose all that apply): None applicable Discharge Plan Admission Admit Date/Time: 01/23/21 09:33 Primary Reason for Your Visit: colostomy Attending Provider: Puneet Mi Primary Care Provider: Tawanda Sood Consulting Providers: Inna Maxwell Instructions Additional Instructions / Restrictions: Dakins moistened gauze dressings daily to the sacral wound. Please avoid wet dressings on the surrounding skin. cover with dry dressing and secure with tape. change daily and as needed. Discharge Orders/Prescriptions Prescriptions: New oxycodone 5 mg Tablet 5 mg PO Q4H PRN PRN (Reason: pain) 7 Days Qty: 15 RF: 0 Continued hydrochlorothiazide 25 MG tablet 12.5 mg PO DAILY RF: 0 losartan 100 MG tablet 100 mg PO DAILY RF: 0 rosuvastatin 5 MG tablet 5 mg PO QHS RF: 0 metformin 500 MG tablet 500 mg PO BID RF: 0 cyclobenzaprine 10 MG tablet 10 mg PO QHS RF: 0 ipratropium-albuterol 3 ML solution for nebulization 3 ml INHALATION Q4H.RT PRN (Reason: sob) RF: 0 aspirin 81 MG tablet,chewable 81 mg PO DAILY@0800 RF: 0 multivitamin with minerals 1 EACH tablet 1 each PO DAILY RF: 0 magnesium hydroxide 30 ML suspension 30 ml PO DAILY PRN PRN (Reason: Constipation) RF: 0 sennosides-docusate sodium 8.6-50 mg Tablet 2 tab-cap PO QHS RF: 0 amlodipine 10 mg Tablet 10 mg PO DAILY RF: 0 nicotine [Nicoderm CQ] 21 mg/24 hr Patch 24 Hour 1 patch TRANSDERMAL DAILY RF: 0 vancomycin in 0.9 % sodium chl 1 gram/100 mL Solution 1 g IV DAILY RF: 0 nicotine 21 MG patch 24 hour 21 mg TD DAILY RF: 0 Referrals / Follow Up: Tawanda Sood MD [Primary Care Provider] - Disposition Disposition (needs filled in before D/C Order can be placed): Long Term Facility
--- NOTE | 2021-01-23 12:57 | CASEMGMT ---
SCOOBY HERRING NOTE: SCOOBY HERRING informed by Jennifer LOWE, that pt's daughter, Chloé, wishes for [facility] at discharge. Call placed to [facility] and spoke w/Serina. She states they would be able to accept pt for SN, but would not be able to see pt until Thursday or Thursday. Pt would need SN to see pt prior to this d/t new colostomy. Call placed back to pt's daughter, Chloé. She was made aware of same. She states she does not want any other HHC other than [facility] and states would prefer pt to return to [facility] for a couple of days and then return home [facility]. Jennifer LOWE, made aware of same. Call placed to Serina @ [facility]. She was made aware of dtr's wishes for pt to return to [facility] until HHC can be set up through [facility]. Serina states the referral for HHC will need to be made by [facility] and then they will need to review it for acceptance. She states, as of now, they do have openings for SOC for for SN, on Thursday, pending referral is received on time and pending acceptance, but states she is not able to guarantee this would be SOC date until official review/acceptance is completed. Jennifer LOWE, made aware of same and to notify [facility] of same. Italo GREGORIO RN, CM
--- NOTE | 2021-01-23 15:03 | CASEMGMT ---
CHRISSY faxed all updates to [facility]. RAO Virgen
--- NOTE | 2021-01-23 16:05 | CASEMGMT ---
Social Work Note CHRISSY updated that since [facility] is not able to start care right away on pt, plan is to discharge pt back to [facility] until [facility] can start care on pt. CHRISSY placed a call to Beckie at [facility] and updated her. Beckie states understanding, pt is able to return when medically ready. CHRISSY received message from pt's NIMA Irby stating pt was set up for aide services through [employer] [facility] for 7 days a week for 3 hours a shift. Surekha states she is not sure if they are a skilled a provider so a skilled provider would need to be arranged for pt. Surekha states Sybil is electric motors salesperson for [employer] and her number is [phone]. CHRISSY placed a call back to Beckie at [facility] and updated her to let Jacinda LOWE know that [facility] is pt's family preference for HHC. Beckie states understanding, will relay the message. Plan: Return to [facility] oncec medically cleared Jennifer Newman SLATE WORKER, WATER QUALITY TESTER
[2021-01-23] MEDS: Glucerna Shake 120 ML LIQUID PO (16:59)
[2021-01-23 17:15] LABS: Bedside Glucose 122 mg/dL (70-110)
--- NOTE | 2021-01-23 17:50 | PN.HOSP_ITS ---
Subjective Subjective Patient was seen and examined today, she is resting quietly, according to surgery, the patient probably will be ready for discharge tomorrow, family briefly consider taking the patient home but could not obtain home health services for the patient until next week, she will go back to her extended care facility at the time of discharge from the hospital. I talked briefly with general surgery about her care. Objective Data Objective Data Vital Signs: Vital Signs Temp Pulse Resp BP Pulse Ox 97.5 F L 105 H 16 91/64 98 01/23/21 15:35 01/23/21 15:35 01/23/21 15:35 01/23/21 15:35 01/23/21 15:35 Oxygen Flow Rate (L/min) 1 Oxygen Delivery Method Room Air Weight: 74.6 kg Body Mass Index (BMI) 28.0 Finger Stick Blood Glucose 86 Intake & Output: Intake and Output for Last 24 Hours 01/21/21 01/22/21 01/23/21 23:59 23:59 23:59 Intake Total 609.33 / 859.33 2626 / 2626 1307.5 / 1307.5 Output Total 850 / 850 1050 / 1050 Balance 609.33 / 509.33 1776 / 1776 257.5 / 257.5 Lab / Micro Data Result Diagrams: 01/23/21 05:16 01/23/21 05:16 Labs: Laboratory Results - last 24 hr 01/22/21 01/23/21 01/23/21 22:21 05:16 05:16 WBC 14.2 H RBC 3.68 L Hgb 10.1 L Hct 32.6 L MCV 88.6 MCH 27.4 MCHC 31.0 L RDW Std Deviation 47.1 H RDW Coeff of Mirza 14.6 Plt Count 496 H MPV 9.6 Immature Gran % (Auto) 0.400 Neut % (Auto) 84.3 H Lymph % (Auto) 9.4 L [place] % (Auto) 5.1 Eos % (Auto) 0.5 Baso % (Auto) 0.3 Absolute Neuts (auto) 12.0 H Absolute Lymphs (auto) 1.34 Nucleated RBC % 0 Sodium 136 Potassium 3.5 Chloride 102 Carbon Dioxide 27.0 Anion Gap 7 BUN 5 L Creatinine 0.30 L Estim Creat Clear Calc 44.56 Est GFR (MDRD) Af Amer 283 Est GFR (MDRD) Non-Af 234 BUN/Creatinine Ratio 16.7 Glucose 138 H Calcium 8.3 L POC Glucose 193 H 01/23/21 01/23/21 01/23/21 06:20 11:35 16:58 WBC RBC Hgb Hct MCV MCH MCHC RDW Std Deviation RDW Coeff of Mirza Plt Count MPV Immature Gran % (Auto) Neut % (Auto) Lymph % (Auto) [place] % (Auto) Eos % (Auto) Baso % (Auto) Absolute Neuts (auto) Absolute Lymphs (auto) Nucleated RBC % Sodium Potassium Chloride Carbon Dioxide Anion Gap BUN Creatinine Estim Creat Clear Calc Est GFR (MDRD) Af Amer Est GFR (MDRD) Non-Af BUN/Creatinine Ratio Glucose Calcium POC Glucose 153 H 166 H 122 H Physical Exam Const alert, oriented x3 and no apparent distress Constitutional Narrative: Patient is deaf General Appearance: cooperative, well kempt and well developed Orientation / Consciousness: awake, oriented to person, oriented to place and oriented to time HEENT normocephalic and moist oral mucous membranes Eyes PERRL, EOMs intact bilaterally and conjunctivae normal General Eye: normal appearance of both eyes Periorbital: periorbital findings normal Neck nuchal rigidity, supple, no JVD, thyroid normal and no carotid bruits General: trachea midline Thyroid: thyroid normal Resp normal respiratory effort and clear to auscultation bilaterally Auscultation: Negative for rales, rhonchi or wheezes Cardio regular rate, regular rhythm, S1 normal heart sound, S2 normal heart sound, no murmurs, no rub, no gallops and no clicks Cardio Narrative: Heart rate and rhythm was irregular Palpation: normal PMI Rhythm: abnormal rhythm irregularly irregular Peripheral Pulses: pulses 2+ throughout GI soft to palpation, non-tender and non-distended GI Narrative: Colostomy present Auscultation: normoactive bowel sounds Extremity no clubbing, cyanosis or edema Skin no rashes or lesions noted, skin turgor normal and no petechiae General Skin Exam: no breakdown Neuro CN's II-XII intact bilaterally, no focal motor deficits and no sensory deficits noted Neuro Narrative: Patient is deaf Sensorium / Orientation: awake and alert Speech: speech normal Motor Exam: strength 5/5 throughout Psych thought process normal and affect normal Assessment & Plan Assessment/Plan (1) Decubitus ulcer: QUALIFIERS: Pressure injury location: buttock Pressure injury stage: unstageable Laterality: unspecified laterality Qualified Code(s): L89.300 - Pressure ulcer of unspecified buttock, unstageable PLAN: 1. Type 2 diabetes-patient's blood sugars will be monitored, patient's blood sugars appear under adequate control at this time #2 essential hypertension #3 chronic obstructive pulmonary disease #4 Paroxysmal atrial fibrillation #5 coronary artery disease #6 stage IV sacral pressure ulceration-patient will be following up with plastic surgery as an outpatient #7 chronic debility-patient currently resides in an extended care facility #8 chronic back pain #9 cerebral vascular disease #10 peripheral vascular disease Visit Charges Inpatient E&M: 27792 Subs Hosp L2
[2021-01-23] MEDS: Senna/Docusate Sodium 1 Tablet 2 TABLET PO (23:00)
[2021-01-23] MEDS: cycloBENZAPRine HCl 10 MG Tablet PO (23:00)
[2021-01-23] MEDS: Rosuvastatin Calcium 5 MG Tablet PO (23:00)
[2021-01-23 23:51] LABS: Bedside Glucose 98 mg/dL (70-110)
[2021-01-24 03:41] VITALS: BP 136/88; PULSE 102; RESP 18; TEMP 36.7; O2SAT 97
[2021-01-24] MEDS: oxyCODONE 5 MG Tablet PO ×3 (05:53→17:25)
[2021-01-24 06:41] LABS: Bedside Glucose 104 mg/dL (70-110)
--- NOTE | 2021-01-24 07:55 | PN.SURG_ITS ---
Objective Data Objective Data Vital Signs: Vital Signs Temp Pulse Resp BP Pulse Ox 98.1 F 102 H 18 136/88 H 97 01/24/21 03:41 01/24/21 03:41 01/24/21 03:41 01/24/21 03:41 01/24/21 03:41 Oxygen Flow Rate (L/min) 1 Oxygen Delivery Method Room Air Weight: 164 lb 7.437 oz Body Mass Index (BMI) 28.0 Finger Stick Blood Glucose 86 Intake & Output: Intake and Output for Last 24 Hours 01/22/21 01/23/21 01/24/21 23:59 23:59 23:59 Intake Total 2626 / 2626 2498.75 / 2498.75 500 / 500 Output Total 850 / 850 1300 / 1300 550 / 550 Balance 1776 / 1776 1198.75 / 1198.75 -50 / -50 Lab / Micro Data Result Diagrams: 01/23/21 05:16 01/23/21 05:16 Labs: Laboratory Results - last 24 hr 01/23/21 01/23/21 01/23/21 11:35 16:58 23:43 POC Glucose 166 H 122 H 98 01/24/21 06:38 POC Glucose 104 Physical Exam Const no apparent distress GI soft to palpation GI Narrative: Abdomen: Soft, nondistended, near incisions, incision dressed clean dry and intact mild tenderness, colostomy with clear serous output. edematous Assessment & Plan Assessment/Plan (1) S/P laparoscopic colectomy: (2) Decubitus ulcer: QUALIFIERS: Pressure injury location: buttock Pressure injury stage: unstageable Laterality: unspecified laterality Qualified Code(s): L89.300 - Pressure ulcer of unspecified buttock, unstageable PLAN: Patient status post sigmoid colostomy due to decubitus ulcer. Patient's colostomy is edematous there is only serous output currently. Patient is okay to DC to senior living once she has flatus. Patient follow-up with Dr. Fortune in about 2 weeks. Therese Canales M.D. Pager: [phone] [facility] [address] [place] [address], [facility], [address] [place] [address] Office: [phone]
[2021-01-24 07:56] VITALS: O2SAT 90
[2021-01-24] MEDS: metFORMIN (XR) 500 MG Tablet PO ×2 (08:22→17:07)
[2021-01-24] MEDS: Aspirin 81 MG TAB.CHEW PO (08:23)
[2021-01-24 08:26] VITALS: BP 135/82; PULSE 62; RESP 20; TEMP 37.2; O2SAT 98
[2021-01-24] MEDS: DAKIN'S SOL HALF STRENGTH (=0.25%) 1 APPLIC TOPICAL (08:54)
--- NOTE | 2021-01-24 09:06 | NURSING ---
Ostomy appliance is intact. patient has small amount of serosanguineous drainage noted in the appliance. stoma is still edematous. some bowel sweat noted. no flatus at this time. no stool. will monitor output. plan to change appliance with family if they are able to come in this am. family will have more teaching at the intermediate and with home health as well.
[2021-01-24] MEDS: amLODIPine 10 MG Tablet PO (10:20)
[2021-01-24] MEDS: hydroCHLOROthiazide 12.5mg 12.5 MG PO (10:20)
[2021-01-24] MEDS: Losartan Potassium 100 MG Tablet PO (10:20)
[2021-01-24] MEDS: Glucerna Shake 120 ML LIQUID PO ×2 (10:21→14:24)
[2021-01-24 10:25] VITALS: PULSE 128
--- NOTE | 2021-01-24 10:50 | NURSING ---
Family not present in room. this nurse unable to do more ostomy teaching with family if patient goes back to the detention today. If pt does leave, detention and home health care can continue with the teaching prior to patient going home.
--- NOTE | 2021-01-24 12:01 | CASEMGMT ---
Addendum entered by Jennifer Newman 01/24/21 15:28: CHRISSY wrote on Green sheet that pt will need COVID test on day of discharge. Addendum entered by Jennifer Newman 01/24/21 15:23: CHRISSY spoke with RN, pt hasn't passed flatus yet. CHRISSY placed a call to pt's daughter Chloé and updated her that once pt passes flatus, pt will discharge to [facility], could still be today. Chloé states understanding. CHRISSY placed Green sheet, transport form and COVID tool on pt's chart in the event pt can discharge later today. CHRISSY faxed Ostomy supply order to [facility]. CHRISSY placed a call to Beckie at [facility] and left message updating her that pt still hasn't passed flatus, could still discharge later today. Plan: [facility] once medically cleared Original Note: Social Work Note Pt is likely going to discharge back to [facility] today once pt passes flatus. CHRISSY placed a call to Beckie at [facility] and updated her. Beckie states pt will need a COVID test. SW to fax discharge paperwork once completed. Plan: [facility] once medically cleared Jennifer Newman MASTER CONTROL OPERATOR, TUBING SUPERVISOR
[2021-01-24 12:06] LABS: Bedside Glucose 128 mg/dL (70-110)
[2021-01-24] MEDS: Morphine 4 MG/ML Syringe IV (14:27)
[2021-01-24] MEDS: 0.9% Saline Lock 10 ML Syringe IV ×2 (14:27→17:25)
[2021-01-24 15:00] VITALS: BP 115/80; PULSE 109; RESP 18; TEMP 37; O2SAT 93
--- NOTE | 2021-01-24 16:14 | PCM.TXEXTCAR ---
Diet 01/23/21 10:45 Diet: Transitional Type of Dietary Supplement:: Romie Is pt able to select menu?: Yes Diet Comments: Romie BID w/breakfast and dinner when diet resumes post-op Wound(s) sacrum: Wound Type: Pressure Injury Dressing Change: Dakins moistened gauze ABDOMEN: Wound Type: Surgical Incision LEFT ABDOMEN: Wound Type: Surgical Incision Therapies Weight Bearing: Weight bearing as tolerated Physical Therapy: Eval and Treat Occupational Therapy: Eval and Treat Problem/Diagnosis (1) S/P laparoscopic colectomy: Status: Acute Comment: 01/22/21 (2) Decubitus ulcer: Status: Acute (3) Debility: Status: Chronic (4) Pressure ulcer of sacral region, stage 4: Status: Chronic (5) Type II diabetes mellitus: Status: Chronic (6) Osteomyelitis of pelvic region: Status: Chronic Allergies/Procedures Done in Hospital Allergies amoxicillin [From Augmentin] Allergy (Verified 01/21/21 12:47) Rash atorvastatin [From Lipitor] Allergy (Verified 01/21/21 12:47) Other clavulanic acid [From Augmentin] Allergy (Verified 01/21/21 12:47) Rash gabapentin Allergy (Verified 01/21/21 12:47) Nausea lisinopril Allergy (Verified 01/21/21 12:47) PT UNSURE OF REACTION mold Allergy (Verified 01/21/21 12:47) PT UNSURE OF REACTION pollen extracts Allergy (Verified 01/21/21 12:47) PT UNSURE OF REACTION quinapril [From Accupril] Allergy (Verified 01/21/21 12:47) Rash ragweed pollen Allergy (Verified 01/21/21 12:47) PT UNSURE OF REACTION simvastatin [From Zocor] Allergy (Verified 01/21/21 12:47) PT UNSURE OF REACTION tramadol Allergy (Verified 01/21/21 12:47) PT UNSURE OF REACTION tuberculin, purified protein deriva Allergy (Verified 01/21/21 12:47) PT UNSURE OF REACTION fluoxetine Adverse Reaction (Verified 01/21/21 12:47) Other Procedures: - (laparoscopic sigmoid colectomy with end colostomy and Devora procedure) Type of Care/Length of Stay Estimated LOS: Convalescent Care Less Than 30 days Type of Care Needed: Skilled Rehab Potential: Fair Prognosis: Fair Additional Orders/Day of Discharge H&P will serve as current which was dated: 01/21/21 Day of Discharge: 01/24/21 Dietary and Speech Recommendations Dietitian Recommendations/Changes: Suggest advance PO post-op as tolerated to carbohydrate-controlled diet. Continue 120ml glucerna shake 4 times per day w/ medpass as ordered. Will add Romie BID for wound healing to resume post-op. Follow Up Care Please Follow Up With: Tung Fortune MD When: 3 weeks Please Follow Up With: Riki Aguirre MD When: 3-4 weeks Discharge Plan Admission Admit Date/Time: 01/23/21 09:33 Primary Reason for Your Visit: colostomy Attending Provider: Puneet Mi Primary Care Provider: Tawanda Sood Consulting Providers: Inna Maxwell Instructions Additional Instructions / Restrictions: Dakins moistened gauze dressings daily to the sacral wound. Please avoid wet dressings on the surrounding skin. cover with dry dressing and secure with tape. change daily and as needed. Discharge Orders/Prescriptions Prescriptions: New oxycodone 5 mg Tablet 5 mg PO Q4H PRN PRN (Reason: pain) 7 Days Qty: 15 RF: 0 Continued hydrochlorothiazide 25 MG tablet 12.5 mg PO DAILY RF: 0 losartan 100 MG tablet 100 mg PO DAILY RF: 0 rosuvastatin 5 MG tablet 5 mg PO QHS RF: 0 metformin 500 MG tablet 500 mg PO BID RF: 0 cyclobenzaprine 10 MG tablet 10 mg PO QHS RF: 0 ipratropium-albuterol 3 ML solution for nebulization 3 ml INHALATION Q4H.RT PRN (Reason: sob) RF: 0 aspirin 81 MG tablet,chewable 81 mg PO DAILY@0800 RF: 0 multivitamin with minerals 1 EACH tablet 1 each PO DAILY RF: 0 magnesium hydroxide 30 ML suspension 30 ml PO DAILY PRN PRN (Reason: Constipation) RF: 0 oxycodone 5 MG tablet 5 mg PO Q6H RF: 0 sennosides-docusate sodium 8.6-50 mg Tablet 2 tab-cap PO QHS RF: 0 sennosides-docusate sodium 8.6-50 mg Tablet 2 tab-cap PO DAILY RF: 0 acetaminophen 500 mg Tablet 1,000 mg PO TID RF: 0 amlodipine 10 mg Tablet 10 mg PO DAILY RF: 0 nicotine [Nicoderm CQ] 21 mg/24 hr Patch 24 Hour 1 patch TRANSDERMAL DAILY RF: 0 rosuvastatin [Crestor] 5 mg Tablet 5 mg PO QHS RF: 0 vancomycin in 0.9 % sodium chl 1 gram/100 mL Solution 1 g IV DAILY RF: 0 nicotine 21 MG patch 24 hour 21 mg TD DAILY RF: 0 Referrals / Follow Up: Tawanda Sood MD [Primary Care Provider] - Disposition Disposition (needs filled in before D/C Order can be placed): Assisted Facility
[2021-01-24 17:21] LABS: Bedside Glucose 156 mg/dL (70-110)
--- NOTE | 2021-01-24 18:15 | NURSING ---
PATIENT SPOKE W/, GOKUL ON PHONE ABOUT GOING BACK TO [facility] THIS EVENING. THIS NURSE CALLED PHARMACY MESSENGER, DAUGHTER SANDRA HERNANDEZ TO LET HER KNOW PATIENT IS RETURNING TO [facility] THIS EVENING. UNSURE YET OF D/C TIME.
--- NOTE | 2021-01-25 09:49 | PN.HOSP_ITS ---
Subjective Subjective The date of this note should be 01/24/2021: Patient was seen and examined today, she passed flatus late this afternoon and general surgery felt that she could be discharged back to her extended care facility for further care. Patient has no complaints today to this examiner, she does not appear to be in any pain and her abdomen is not distended. Objective Data Objective Data Vital Signs: Vital Signs Temp Pulse Resp BP Pulse Ox 98.6 F 109 H 18 115/80 93 01/24/21 15:00 01/24/21 15:00 01/24/21 15:00 01/24/21 15:00 01/24/21 15:00 Oxygen Flow Rate (L/min) 1 Oxygen Delivery Method Room Air Weight: 74.6 kg Body Mass Index (BMI) 28.0 Intake & Output: Intake and Output for Last 24 Hours 01/23/21 01/24/21 01/25/21 23:59 23:59 23:59 Intake Total 2498.75 / 2498.75 2343.75 / 2343.75 Output Total 1300 / 1300 1300 / 1300 Balance 1198.75 / 1198.75 1043.75 / 1043.75 Lab / Micro Data Result Diagrams: 01/23/21 05:16 01/23/21 05:16 Labs: Laboratory Results - last 24 hr 01/24/21 01/24/21 11:51 17:05 POC Glucose 128 H 156 H Micro: Microbiology 01/24/21 16:55 Mucosa - Nose SARS-CoV-2 Antigen (Rapid) - Final Physical Exam Const alert and no apparent distress Constitutional Narrative: Patient is deaf General Appearance: cooperative, comfortable, well kempt and well developed Orientation / Consciousness: awake, oriented to person, oriented to place and oriented to time HEENT head/scalp atraumatic and moist oral mucous membranes Head and Scalp: normocephalic Eyes PERRL and EOMs intact bilaterally General Eye: normal appearance of both eyes Periorbital: periorbital findings normal Neck no lymphadenopathy and no JVD General: trachea midline Thyroid: thyroid normal Resp normal respiratory effort, no retractions, no use of accessory muscles and clear to auscultation bilaterally Auscultation: Negative for crackles, rales, rhonchi or wheezes Cardio regular rate, regular rhythm, S1 normal heart sound, S2 normal heart sound, no gallops and no clicks Cardio Narrative: Heart rate and rhythm was irregular Palpation: normal PMI Rhythm: abnormal rhythm irregularly irregular Peripheral Pulses: pulses 2+ throughout GI soft to palpation GI Narrative: Colostomy is present Auscultation: normoactive bowel sounds Extremity normal to inspection and no clubbing, cyanosis or edema Skin no rashes or lesions noted General Skin Exam: no breakdown Neuro CN's II-XII intact bilaterally, no focal motor deficits and no sensory deficits noted Neuro Narrative: Patient is deaf Sensorium / Orientation: awake and alert Speech: speech normal Motor Exam: strength 5/5 throughout Psych affect normal Assessment & Plan Assessment/Plan (1) S/P laparoscopic colectomy: (2) Decubitus ulcer: QUALIFIERS: Pressure injury location: buttock Pressure injury stage: unstageable Laterality: unspecified laterality Qualified Code(s): L8 9.300 - Pressure ulcer of unspecified buttock, unstageable (3) Debility: (4) Pressure ulcer of sacral region, stage 4: (5) Type II diabetes mellitus: (6) Osteomyelitis of pelvic region: PLAN: 1. Type 2 diabetes-patient appears stable for discharge at this time to her extended care facility, her PICC line will remain in place. I have filled out the discharge instructions for general surgery who is the attending for the patient. #2 essential hypertension #3 chronic obstructive pulmonary disease #4 Paroxysmal atrial fibrillation #5 coronary artery disease #6 stage IV sacral pressure ulceration-patient will be following up with plastic surgery as an outpatient #7 chronic debility-patient currently resides in an extended care facility #8 chronic back pain #9 cerebral vascular disease #10 peripheral vascular disease Visit Charges Inpatient E&M: 81200 Subs Hosp L2
== END 2021-01-24 19:06 | disposition skilled nursing facility (03) | DRG 982 ==
LOC: ACINP 16:18 → MS3 01-22 07:00
PROVIDERS: Anesthesiology; Admitting Provider Surgery; PCP Family Medicine; Referring Provider Surgery; Visit Provider Internal Medicine
PROC: 0D1E4Z4 Bypass Large Intestine to Cutaneous, Percutaneous Endoscopic Approach (ICD-10-PCS; CPT 44188; principal; 2021-01-21 13:15)
DX: L89.154 Pressure ulcer of sacral region, stage 4 (principal); M46.28 Osteomyelitis of vertebra, sacral and sacrococcygeal region; Q43.8 Other specified congenital malformations of intestine; J96.11 Chronic respiratory failure with hypoxia; I48.21 Permanent atrial fibrillation; K56.41 Fecal impaction; I25.10 Atherosclerotic heart disease of native coronary artery without angina pectoris; N31.9 Neuromuscular dysfunction of bladder, unspecified; E11.40 Type 2 diabetes mellitus with diabetic neuropathy, unspecified; N39.41 Urge incontinence; F17.210 Nicotine dependence, cigarettes, uncomplicated; H91.93 Unspecified hearing loss, bilateral; E11.69 Type 2 diabetes mellitus with other specified complication; I10 Essential (primary) hypertension; J44.9 Chronic obstructive pulmonary disease, unspecified; E11.51 Type 2 diabetes mellitus with diabetic peripheral angiopathy without gangrene; E11.621 Type 2 diabetes mellitus with foot ulcer; G89.29 Other chronic pain; K21.9 Gastro-esophageal reflux disease without esophagitis; Z79.899 Other long term (current) drug therapy; Z79.84 Long term (current) use of oral hypoglycemic drugs; Z79.82 Long term (current) use of aspirin; Z86.14 Personal history of Methicillin resistant Staphylococcus aureus infection
CPT/HCPCS: 36415; 80048; 81001; 82962; 83036; 83735; 84132; 85025; 87426; 88307; 93005; 94640; 97802; J7030; J7120; A4216; C1760; J2405

== ENCOUNTER 2021-01-26 07:42 | Emergency (ER) | payer MEDICARE, MEDICAID, SELFPAY ==
[2021-01-22 09:20] VITALS: BMI 28.0
[2021-01-26 07:43] VITALS: BP 129/83; PULSE 99; RESP 18; TEMP 36.7; O2SAT 95; BMI 23.8
--- NOTE | 2021-01-26 07:45 | EKG12_ITS ---
Test Reason : Blood Pressure : / mmHG Vent. Rate : 107 BPM Atrial Rate : 107 BPM P-R Int : 178 ms QRS Dur : 086 ms QT Int : 342 ms P-R-T Axes : -04 047 051 degrees QTc Int : 456 ms Sinus tachycardia with Premature atrial complexes Nonspecific ST and T wave abnormality Abnormal ECG Confirmed by RICKI SAUCEDO, TOÑITO ([id number]), international editorial producer ROCKY ANGELA ([id number]) on 01/29/2021 9:28:33 AM Referred By: CORA Confirmed By:TOÑITO ROBISON MD
--- NOTE | 2021-01-26 07:45 | CT_ITS ---
STUDY: CT BRAIN WITHOUT CONTRAST REASON FOR EXAM: Female, 70 years old. confusion RADIATION DOSAGE (If Supplied By Facility): CTDIvol = ( 44.99 ) mGy, DLP = ( 1592.22 ) mGycm TECHNIQUE: Transaxial CT imaging of the brain was performed without administration of intravenous contrast material. Individualized dose optimization techniques were used for this CT. COMPARISON: None. FINDINGS: There is disproportionate enlargement of the lateral and third ventricles, as compared to the extra-axial spaces. The findings suggest normal pressure hydrocephalus (NPH). There are areas of decreased attenuation within the white matter tracts of the supratentorial brain, consistent with microvascular disease changes. Basal ganglia lacunar infarcts are noted. There is no intracranial hemorrhage. There are no findings of an acute ischemic infarction. Normal soft tissue structures. Normal visualized paranasal sinuses. CT/Brain/Head without Contrast IMPRESSION: Findings suggest normal pressure hydrocephalus (NPH). Electronically Signed: Axel Acevedo MD at 9:11 EDT Tel , Service support ,
--- NOTE | 2021-01-26 07:46 | CT_ITS ---
STUDY: CT ABDOMEN AND PELVIS WITH CONTRAST REASON FOR EXAM: Female, 70 years old. abd pain, recent colectomy RADIATION DOSAGE (If Supplied By Facility): CTDIvol = ( 15.59 ) mGy, DLP = ( 932.54 ) mGycm TECHNIQUE: Transaxial images were obtained from the dome of the diaphragm to the symphysis pubis without oral contrast. 100ML ISOVUE 300 was administered. Sagittal and coronal images were reconstructed. Individualized dose optimization techniques were used for this CT. COMPARISON: 10/18/2020 FINDINGS: Moderate bilateral pleural effusions with bibasilar atelectasis. The visualized portions of the heart are within normal limits. Normal liver. Normal gallbladder and extrahepatic biliary system. Normal spleen. Normal pancreas. Normal bilateral adrenal glands. Normal right kidney. Normal left kidney. There is a small hiatal hernia. Normal small intestine. Status post resection of the sigmoid colon with a left lower quadrant colostomy. Pneumoperitoneum consistent with recent surgery.. Clinical correlation is recommended. There is non-visualization of the appendix. There is diffuse atherosclerotic calcification of the abdominal aorta, without a demonstrated aneurysm. Normal inferior vena cava. Normal retroperitoneum. Huston catheter within the collapsed bladder. Sacral stimulator in the left buttock. Edema of the subcutaneous fat suggestive of anasarca. Chronic compression fractures in the lumbar spine treated with vertebroplasty. CT/Abdomen/Pelvis W IV Cont ONLY IMPRESSION: 1. Recent resection of the sigmoid colon with creation of a left lower quadrant colostomy with a small amount of pneumoperitoneum but no postoperative seroma, hematoma, or abscess. 2. Volume overload with anasarca and moderate bilateral pleural effusions with bibasilar atelectasis. Electronically Signed: Boyd Lopes MD at 9:31 EDT Tel , Service support ,
--- NOTE | 2021-01-26 07:47 | EX.ED.DYSGE1 ---
HPI History of Present Illness Chief Complaint: Alt LOC Informant: patient Onset/Context/Timing Onset: Today Context: Gradual Onset Timing: Continuous Current Severity: Moderate Maximum Severity: Moderate Narrative Narrative: The patient is a 70-year-old female who presents to the emergency department from her intermediate due to change in mental status. Patient had a recent prolonged hospitalization. She had a diverting colostomy as the patient has a nonhealing sacral wound and was getting recurrent infections. Her postoperative course was complicated by atrial fibrillation. The patient was discharged to a residential facility. Apparently, overnight through the morning, she has not been acting herself. She has been more confused and lethargic. She currently denies any symptoms. History is hard to gather from the patient given her mental status state. 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 Decubitus ulcer of left heel, stage 4 Diabetes Dysphagia following cerebrovascular accident (CVA) Former smoker Frozen shoulder GERD (gastroesophageal reflux disease) Gout History of MRSA infection History of pressure ulcer History of transesophageal echocardiography (MAR[facility]) HTN (hypertension) Hx of echocardiogram Hx TIA/stroke w/o resid Intertrochanteric fracture of left hip Left humeral fracture Neurogenic bladder Neurogenic bladder Neuropathy Nocturia On home oxygen therapy Osteoporosis PAD (peripheral artery disease) Peripheral vascular disease Stroke/cerebrovascular accident Tobacco abuse Type II diabetes mellitus Urge incontinence Urinary retention Vitamin D deficiency Wears dentures Home Medications hydrochlorothiazide 12.5 mg PO DAILY 06/16/18 [History Last Taken 02/11/19] losartan 100 mg PO DAILY 06/16/18 [History Last Taken 01/21/21] rosuvastatin 5 mg PO QHS 09/08/18 [History Last Taken 02/11/19] metformin 500 mg PO BID 04/30/20 [History Last Taken Unknown] aspirin 81 mg PO DAILY@0800 11/06/20 [History Last Taken Unknown] cyclobenzaprine 10 mg PO QHS 11/06/20 [History Last Taken 01/25/21 23:00] ipratropium-albuterol 3 ml INHALATION Q4H.RT PRN 11/06/20 [History Last Taken Unknown] multivitamin with minerals 1 each PO DAILY 11/06/20 [History Last Taken Unknown] magnesium hydroxide 30 ml PO DAILY PRN PRN 12/03/20 [History Last Taken Unknown] amlodipine 10 mg PO DAILY 01/18/21 [History Last Taken 01/21/21] nicotine 21 mg TD DAILY 01/18/21 [History Last Taken Unknown] nicotine [Nicoderm CQ] 1 patch TRANSDERMAL DAILY 01/18/21 [History Last Taken Unknown] sennosides-docusate sodium 2 tab-cap PO QHS 01/18/21 [History Last Taken Unknown] vancomycin in 0.9 % sodium chl 1 g IV DAILY 01/18/21 [History Last Taken Unknown] oxycodone 5 mg PO Q4H PRN PRN 7 Days #15 tab 01/24/21 [Rx Last Taken 01/25/21 23:00] Allergy/AdvReac Type Severity Reaction Status Date / Time amoxicillin [From Augmentin] Allergy Rash Verified 01/21/21 12:47 atorvastatin [From Lipitor] Allergy Other Verified 01/21/21 12:47 clavulanic acid Allergy Rash Verified 01/21/21 12:47 [From Augmentin] gabapentin Allergy Nausea Verified 01/21/21 12:47 lisinopril Allergy PT UNSURE Verified 01/21/21 12:47 OF REACTION mold Allergy PT UNSURE Verified 01/21/21 12:47 OF REACTION pollen extracts Allergy PT UNSURE Verified 01/21/21 12:47 OF REACTION quinapril [From Accupril] Allergy Rash Verified 01/21/21 12:47 ragweed pollen Allergy PT UNSURE Verified 01/21/21 12:47 OF REACTION simvastatin [From Zocor] Allergy PT UNSURE Verified 01/21/21 12:47 OF REACTION tramadol Allergy PT UNSURE Verified 01/21/21 12:47 OF REACTION tuberculin, purified protein Allergy PT UNSURE Verified 01/21/21 12:47 deriva OF REACTION fluoxetine AdvReac Other Verified 01/21/21 12:47 Family History Mother Tuberculosis Father Heart disease CVA (cerebral vascular accident) Sister Multiple sclerosis Brother Heart disease Surgical History History of lumpectomy of right breast History of partial hysterectomy History of right-sided carotid endarterectomy Hx of bladder repair surgery Hx of tonsillectomy Social History Smoking Status: Light Smoker (<10/day) Tobacco: How many years used: 53 second hand exposure: Yes alcohol intake: never substance use type: does not use caffeine: Yes what type of physical activity do you participate in: none frequency: does not exercise ROS ROS ED Review of Systems ROS Unobtainable: due to encephalopathy Constitutional Constitutional ED: Denies chills or fever(s) Eyes Eyes: Denies blurry vision or change in vision ENT ENT ED: Denies ear pain or sore throat Cardiovascular Cardiovascular: Denies chest pain or palpitations Respiratory/Chest Respiratory/Chest: Denies cough, dyspnea or dyspnea on exertion Gastrointestinal Gastrointestinal: Reports abdominal pain; Denies nausea or vomiting Genitourinary Genitourinary ED: Denies dysuria or urinary frequency Musculoskeletal Musculoskeletal: Denies arthralgias or myalgias Integumentary Denies rash Neurologic Neurologic: Denies headache(s) or paresthesias Psychiatric Psychiatric: Denies anxiety or depression Endocrine Endocrinology: Denies polydipsia or polyuria Allergic/Immunologic Allergic/Immunologic ED: Denies urticaria EXAM Physical Exam Const Vital Signs: 01/26/21 07:43 01/26/21 07:51 01/26/21 08:30 Temperature 98.0 F 98.0 F Temperature Source Oral Oral Pulse Rate 99 99 109 H Respiratory Rate 18 18 23 H Blood Pressure 129/83 H 129/83 H 122/79 H Blood Pressure Mean 98 98 93 Pulse Ox 95 95 91 Oxygen Delivery Method Room Air Room Air Room Air Oxygen Flow Rate (L/min) 01/26/21 09:45 01/26/21 11:00 Temperature Temperature Source Pulse Rate 111 H 100 Respiratory Rate 18 20 H Blood Pressure 118/78 118/73 Blood Pressure Mean 91 88 Pulse Ox 100 98 Oxygen Delivery Method Nasal Cannula Room Air Oxygen Flow Rate (L/min) 2 Positive well nourished and well developed General Appearance ED: well developed HEENT Reports normocephalic, head/scalp atraumatic and moist mucous membranes Eyes PERRL and EOMs intact bilaterally Neck no lymphadenopathy and supple General: Negative for tenderness Chest Wall inspection of chest normal Resp normal respiratory effort and clear to auscultation bilaterally Cardio regular rate, regular rhythm and no murmurs GI normal to inspection, nondistended, normoactive bowel sounds Palpation: tender; Negative for guarding or rebound tenderness present Back/Spine no CVA tenderness Cervical Spine: Negative for cervical spine tenderness Thoracic Spine / Upper Back: Negative for thoracic spinal tenderness Extremity normal to inspection General Extremety ED: Negative for tenderness Neuro oriented x3 and CN's II-XII intact bilaterally Neuro Narrative: No focal deficits appreciated. Sensorium / Orientation: alert Psych mental status grossly normal Skin no rashes or lesions noted, no wounds and skin turgor normal MDM MDM MDM Narrative Medical decision making narrative: The patient presents with diminished mental status. On arrival, she will wake to voice but was not answering questions. The patient is also basically deaf and has to read lips. Broad metabolic work-up was pursued. Screening labs are relatively unremarkable. Her urine was nitrite positive, but the patient has had indwelling Huston for the past week. I will add a culture, but she is not had a white count and does not seem overwhelmingly infectious. Patient underwent noncontrast head CT. There is no acute change. I also did imaging of her abdomen because she seemed to be more tender in the right lower quadrant. There was normal postsurgical changes, but no abscess or evidence of dehiscence. Nursing was able to discuss with the patient's intermediate. Apparently, she has been getting large doses of oxycodone and Flexeril at night. I do feel that the patient symptoms are likely secondary to polypharmacy. The patient was observed. Her mental status continued to improve and she was much more awake and alert. At this point, I do for that she is safe for transfer back to her nursing facility. I have made recommendations to stop her cyclobenzaprine. The patient will be discharged. Impression 1. Change in mental status secondary to polypharmacy Lab Data Attestation: I reviewed the patient's lab results. Labs: Laboratory Results - last 24 hr 01/26/21 01/26/21 01/26/21 08:05 08:05 08:05 WBC 9.6 RBC 3.66 L Hgb 10.4 L Hct 32.5 L MCV 88.8 MCH 28.4 MCHC 32.0 RDW Std Deviation 46.4 H RDW Coeff of Mirza 14.2 Plt Count 440 MPV 9.6 Immature Gran % (Auto) 0.100 Neut % (Auto) 77.3 H Lymph % (Auto) 14.1 L Montague % (Auto) 5.5 Eos % (Auto) 2.6 Baso % (Auto) 0.4 Absolute Neuts (auto) 7.4 Absolute Lymphs (auto) 1.35 Nucleated RBC % 0 PT 14.1 INR 1.2 Sodium 135 L Potassium 3.7 Chloride 98 Carbon Dioxide 31.0 Anion Gap 6 BUN 6 L Creatinine 0.27 L Estim Creat Clear Calc 44.56 Est GFR (MDRD) Af Amer 318 Est GFR (MDRD) Non-Af 263 BUN/Creatinine Ratio 22.2 H Glucose 86 Lactic Acid Calcium 8.5 Total Bilirubin 0.40 AST 30 ALT 22 Alkaline Phosphatase 125 H Total Protein 5.3 L Albumin 1.7 L Globulin 3.6 Albumin/Globulin Ratio 0.5 L Urine Color Urine Clarity Urine pH Ur Specific Weatherly Urine Protein Urine Glucose (UA) Urine Ketones Urine Occult Blood Urine Nitrite Urine Bilirubin Urine Urobilinogen Ur Leukocyte Esterase Urine RBC Urine WBC Ur Squamous Epith Cells Urine Bacteria Urine Mucus 01/26/21 01/26/21 08:05 08:30 WBC RBC Hgb Hct MCV MCH MCHC RDW Std Deviation RDW Coeff of Mirza Plt Count MPV Immature Gran % (Auto) Neut % (Auto) Lymph % (Auto) Montague % (Auto) Eos % (Auto) Baso % (Auto) Absolute Neuts (auto) Absolute Lymphs (auto) Nucleated RBC % PT INR Sodium Potassium Chloride Carbon Dioxide Anion Gap BUN Creatinine Estim Creat Clear Calc Est GFR (MDRD) Af Amer Est GFR (MDRD) Non-Af BUN/Creatinine Ratio Glucose Lactic Acid 1.8 Calcium Total Bilirubin AST ALT Alkaline Phosphatase Total Protein Albumin Globulin Albumin/Globulin Ratio Urine Color Straw Urine Clarity Cloudy Urine pH 8.0 Ur Specific Weatherly 1.010 Urine Protein 30 H Urine Glucose (UA) Normal Urine Ketones Negative Urine Occult Blood 50 H Urine Nitrite Positive H Urine Bilirubin Negative Urine Urobilinogen Normal Ur Leukocyte Esterase 500 H Urine RBC 0-5 SEEN Urine WBC 25-50 SEEN Ur Squamous Epith Cells 0-5 SEEN Urine Bacteria 2+ Urine Mucus 0 SEEN Radiography Chest X-Ray - ED: 1 View, Read by ED Physician, Unchanged, Normal, Heart, Lungs and Mediastinum Diagnostic Testing: Radiology Impression Brain CT 01/26/21 07:45 IMPRESSION: Findings suggest normal pressure hydrocephalus (NPH). Electronically Signed: Axel Acevedo MD at 9:11 EDT Tel , Service support , Abdomen/Pelvis CT 01/26/21 07:46 IMPRESSION: 1. Recent resection of the sigmoid colon with creation of a left lower quadrant colostomy with a small amount of pneumoperitoneum but no postoperative seroma, hematoma, or abscess. 2. Volume overload with anasarca and moderate bilateral pleural effusions with bibasilar atelectasis. Electronically Signed: Boyd Lopes MD at 9:31 EDT Tel , Service support , Chest X-Ray 01/26/21 08:25 IMPRESSION: 1. Interval placement of right upper extremity PICC with tip the catheter overlying the junction right atrium and spur vena cava. 2. No active disease. Electronically Signed: Boyd Lopes MD at 9:20 EDT Tel , Service support , Discharge Plan Triage Chief Complaint: Alt LOC ED Provider: Caden Duarte Dx/Rx/DC Orders Instructions: ED ALOC Prescriptions: No Action hydrochlorothiazide 25 MG tablet 12.5 mg PO DAILY RF: 0 losartan 100 MG tablet 100 mg PO DAILY RF: 0 rosuvastatin 5 MG tablet 5 mg PO QHS RF: 0 metformin 500 MG tablet 500 mg PO BID RF: 0 cyclobenzaprine 10 MG tablet 10 mg PO QHS RF: 0 ipratropium-albuterol 3 ML solution for nebulization 3 ml INHALATION Q4H.RT PRN (Reason: sob) RF: 0 aspirin 81 MG tablet,chewable 81 mg PO DAILY@0800 RF: 0 multivitamin with minerals 1 EACH tablet 1 each PO DAILY RF: 0 magnesium hydroxide 30 ML suspension 30 ml PO DAILY PRN PRN (Reason: Constipation) RF: 0 sennosides-docusate sodium 8.6-50 mg Tablet 2 tab-cap PO QHS RF: 0 amlodipine 10 mg Tablet 10 mg PO DAILY RF: 0 nicotine [Nicoderm CQ] 21 mg/24 hr Patch 24 Hour 1 patch TRANSDERMAL DAILY RF: 0 vancomycin in 0.9 % sodium chl 1 gram/100 mL Solution 1 g IV DAILY RF: 0 nicotine 21 MG patch 24 hour 21 mg TD DAILY RF: 0 oxycodone 5 mg Tablet 5 mg PO Q4H PRN PRN (Reason: pain) 7 Days Qty: 15 RF: 0 Primary Care Provider: Tawanda Sood Referrals: Tawanda Sood MD [Primary Care Provider] - Activity Restrictions/Additional Instructions: Please stop the cyclobenzaprine.
[2021-01-26 07:51] VITALS: BP 129/83; PULSE 99; RESP 18; TEMP 36.7; O2SAT 95
[2021-01-26] MEDS: 0.9% Normal Saline 1,000 ML 1000 ML IV (08:24)
--- NOTE | 2021-01-26 08:25 | RAD_ITS ---
STUDY: X-RAY CHEST REASON FOR EXAM: Female, 70 years old. sob TECHNIQUE: Single AP portable view of the chest. COMPARISON: 12/04/2019 FINDINGS: Interval placement of right upper extremity PICC with tip the catheter overlying the junction of the superior vena cava and right atrium. The lungs are clear and expanded. There is no demonstrated pleural abnormality. Normal size heart. Normal mediastinum and morteza. Normal visualized pulmonary arteries. There is atherosclerotic tortuosity of the aortic arch and descending thoracic aorta. Normal visualized thoracic spine. Normal visualized ribs, clavicles, and shoulders. There is no demonstrated abnormality of the visualized soft tissue structures of the upper abdomen. RAD/Chest 1 View (Portable) IMPRESSION: 1. Interval placement of right upper extremity PICC with tip the catheter overlying the junction right atrium and spur vena cava. 2. No active disease. Electronically Signed: Boyd Lopes MD at 9:20 EDT Tel , Service support ,
--- NOTE | 2021-01-26 08:25 | ED.RN ---
THIS NURSE SPOKE WITH THE [facility]. PT HAD OXY AND FLEXERIL AT 2300 LAST NIGHT
[2021-01-26 08:30] VITALS: BP 122/79; PULSE 109; RESP 23; O2SAT 91
[2021-01-26 08:32] LABS: Absolute Lymphocyte Count 1.35 X10^3/uL (0.83-4.51); Absolute Neutrophil Count 7.4 X10^3/uL (2.0-7.7); Basophil# 0.04 X10^3/uL; Basophil% 0.4 % (0-1); Eosinophil# 0.25 X10^3/uL; Eosinophils% 2.6 % (0-5); Hematocrit 32.5 % (37-47); Hemoglobin 10.4 g/dL (12.0-15.0); Lymphocyte # 1.35 X10^3/ul (0.83-4.51); Lymphocyte % 14.1 % (19-41); Mean Corpuscular Hgb 28.4 pg (27.0-32.0); Mean Corpuscular Volume 88.8 fL (81-99); Mean Platelet Vol. 9.6 fl (6.2-12.0); Monocyte# 0.53 X10^3/uL; Monocyte% 5.5 % (0-10); NRBC Flagged by Analyzer 0 % (0-5); Neutrophil # 7.42 X10^3/uL (2.7-7.7); Neutrophil % 77.3 % (47-70); Platelet Count 440 K/mm3 (150-450); RBC Distribution Width CV 14.2 % (11.6-14.6); RBC Distribution Width SD 46.4 fl (35.1-43.9); Red Blood Count 3.66 M/mm3 (4.2-5.4); White Blood Count 9.6 K/mm3 (4.4-11.0)
[2021-01-26 08:36] LABS: International Normalized Ratio 1.2; Prothrombin Time (Protime)PT. 14.1 SECONDS (11.7-14.9)
[2021-01-26 08:38] LABS: Mucous, Urine 0 SEEN /hpf (<or=2+)
[2021-01-26 08:44] LABS: ALB/GLOB Ratio 0.5 RATIO (0.9-2.4); AST(SGOT) 30 U/L (15-37); Alanine Aminotransfer ALT/SGPT 22 U/L (13-56); Albumin, Serum 1.7 g/dL (3.2-5.0); Alkaline Phosphatase 125 U/L (45-117); Anion Gap 6 (5-15); BUN 6 mg/dL (7-18); BUN/Creat Ratio 22.2 RATIO (10-20); Calcium,Total 8.5 mg/dL (8.5-10.1); Chloride 98 mmol/L (98-107); Creatinine, Serum 0.27 mg/dL (0.55-1.02); EST Glomerular Filtration Rate 263 mL/min (>60); Est Glom Filt Rate - Afr Amer 318 mL/min (>60); Estimated Creatinine Clearance 44.56 ml/min; Globulin 3.6 g/dL (2.2-4.2); Glucose 86 mg/dL (74-106); Potassium 3.7 mmol/L (3.5-5.1); Protein, Total 5.3 g/dL (6.4-8.2); Sodium Level 135 mmol/L (136-145)
[2021-01-26 08:45] LABS: Color, Urine Straw (Yellow); Glucose, Dipstick Normal (Normal); Ketone-Dipstick Negative (Negative); Leukocyte Esterase-Dipstick 500 /ul (Negative); Nitrite-Dipstick Positive (Negative); Occult Blood-Urine 50 /ul (Negative); Protein-Dipstick 30 mg/dl (Negative); Urine Bilirubin Dipstick Negative (Negative); Urine Clarity Cloudy (Clear); Urine Urobilinogen Normal (Normal)
[2021-01-26 08:58] LABS: Bacteria 2+ /hpf (None Seen); Red Blood Cells-Urine 0-5 SEEN /hpf (0-5); Squamous Epithelial Cells - UA 0-5 SEEN /hpf (5-10); White Blood Cells 25-50 SEEN /hpf (0-5)
[2021-01-26 08:59] LABS: Lactic Acid 1.8 mmol/L (0.4-1.9)
[2021-01-26 09:45] VITALS: BP 118/78; PULSE 111; RESP 18; O2SAT 100
[2021-01-26 11:00] VITALS: BP 118/73; PULSE 100; RESP 20; O2SAT 98
--- NOTE | 2021-01-26 11:32 | NURSING ---
CALLED [facility], ETA IS 30 MIN. TALKED TO ROCKY
[2021-01-26 11:40] VITALS: BP 127/70; PULSE 111; RESP 21; O2SAT 99
== END 2021-01-26 12:03 | disposition home or self-care (01) ==
PROVIDERS: Emergency Provider Emergency Medicine; PCP Family Medicine
DX: R41.82 Altered mental status, unspecified (principal); T40.2X5A Adverse effect of other opioids, initial encounter; T48.1X5A Adverse effect of skeletal muscle relaxants [neuromuscular blocking agents], initial encounter; I48.91 Unspecified atrial fibrillation; I25.10 Atherosclerotic heart disease of native coronary artery without angina pectoris; E11.9 Type 2 diabetes mellitus without complications; K21.9 Gastro-esophageal reflux disease without esophagitis; I10 Essential (primary) hypertension; Z86.73 Personal history of transient ischemic attack (TIA), and cerebral infarction without residual deficits; Z79.84 Long term (current) use of oral hypoglycemic drugs; Z79.899 Other long term (current) drug therapy; F17.200 Nicotine dependence, unspecified, uncomplicated
CPT/HCPCS: 70450; 71045; 74177; 80053; 81001; 83605; 85025; 85610; 87040; 87077; 87086; 87088; 87186; 93005; 96360; 99285; J7030; Q9967; A4216

== ENCOUNTER 2021-02-05 13:29 | Outpatient (RCR) | payer MEDICARE, MEDICAID, SELFPAY ==
[2021-01-10 09:42] VITALS: BMI 22.4
[2021-01-12 00:47] VITALS: BP 114/83; PULSE 106; RESP 16; TEMP 36.1
[2021-02-05 13:19] VITALS: BP 136/68; PULSE 104; RESP 16; BMI 22.4
--- NOTE | 2021-02-05 16:00 | PCM.WC.PN ---
History of Present Illness Date of Service: 02/05/21 Chief Complaint: Sacral ulcer, Stage IV History of Wound: The patient is a 70 y/o F with a history of stroke and diabetes mellitus presents with worsening necrotic infected sacral pressure sore. The pressure sore started in September. There was increasing drainage and odor. In the ED, WBC was 11.1. Lactate was 0.9. She had recent wound culture done on 11/02/20. It showed E. coli, Morganella morganii, Pseudomonas aeroginosa, and Actinomyces odontolyticus. She was placed on Ciprofloxacin and failed outpatient therapy. She was admitted and initially the Cipro was continued IV. Her antibiotics have been changed to Meropenem. She had a CT Pelvis done on 10/18/20. It showed no demonstrated cortical erosion or bony destruction or periosteal reaction to indicate active osteomyelitis of the lower coccygeal vertebra. The overlying soft tissues are mildly thickened/edematous possibly due to cellulitis or pressure wound. No abscess is seen. Large amount of stool throughout the colon. Minor colonic diverticulosis. Because of the odor, wound care was started with Dakin's dressing changes. I was asked to evaluate this patient for surgical options for treatment. Her last HgbA1c from [place] was 6.9 on 12/23/18. Surgery 11/08/20 - 1. Necrotic infected sacral pressure sore, Stage IV. 2. Clinical osteomyelitis. 3. Diabetes mellitus. 4. History of stroke with decreased ambulation. 5. Smoker. 6. History of MRSA. Operative tissue cultures positive for Enterococcus avium, Corynebacterium striatum, Morganella morganii, Anaerobic cocci, Porphyromonas species, Clostridium group and Bacteroides uniformis. Operative bone culture was negative. ID is consulted. She was receiving Vancomycin and Cefapine while at the skilled nursing, she has completed that. Wound care - Continue Dakin's moistened gauze dressing changes daily. Periwound is much improved using Dakin's instead of the wound VAC. On 01/22/21 she had a colostomy done by Dr. Fortune. Today she denies fever. She is receiving protein supplementation at the skilled nursing. Progress of Wound: Sacral ulcer is stable. Objective Data Objective Data Vital Signs: Vital Signs Temp Pulse Resp BP 96.9 F L 104 H 16 136/68 H 01/12/21 00:47 02/05/21 13:19 02/05/21 13:19 02/05/21 13:19 Oxygen Delivery Method Room Air Body Mass Index (BMI) 22.4 Charges/Coding Procedures Integumentary 111xxx-113xx: [id number] Gypsy musc/fascia 20 sq cm/< Add On Codes: 03314 Gypsy musc/fascia add-on (x3) Physical Exam Const alert and no apparent distress HEENT normocephalic Eyes PERRL Lymph Lymphatic: no lymphedema noted Resp normal respiratory effort Cardio regular rate GI non-tender Palpation: soft Extremity normal capillary refill Skin Wound Narrative: Sacral ulcer that goes into the muscle. Wound bed is beefy pink. Neuro CN's II-XII intact bilaterally Psych Thought Process: normal thought process Debridement Note Debridement Note Post-Debridement Measurements and Additional Note: Post-Debridement Measurements/Treatment - Nurse 1 - General Ulcer Assessment Start: 02/05/21 13:19 Freq: Status: Active Protocol: .LOWCALDERON Activity Type Activity Date Activity User E-Sign Co-Sign Detail Recorded Client Recorded Date Recorded By Document 02/05/21 13:19 [facility] Desktop 02/05/21 13:30 [facility] 02/05/21 13:19 WC - Today's Visit Information Type of service Follow-up Visit (Physician/LYE BATH OPERATOR ) Arrival Mode Stretcher Transfer Assistance Stretcher Transfer Assist (Other) 2 Accompanied by daughter Patient Identification Verified (Name & Yes ) Height and Weight Body Mass Index (BMI) 22.4 BMI Classification Normal Vital Signs Pulse Rate (60-100) 104 H Pulse Location Monitor Respiratory Rate (12-18) 16 Respiratory rate source Observation Oxygen Delivery Method Room Air Blood Pressure (90/60-120/80) 136/68 H Blood Pressure Mean (mm Hg) 90 Source Monitor Position Supine Blood Pressure Location Right Arm History Since Last Visit- (Skip if this is Patient's initial visit) Have you changed medications since your Yes last visit? Any new allergies or adverse reactions No Had a fall/change in ADL's that may No increase risk of falls Signs or symptoms of abuse and/or No neglect since last visit Have you been in the hospital since your No last visit? Has dressing in place as prescribed Yes Has compression in place as prescribed N/A Has offloadiing in place as prescribed N/A Experienced any changes in pain level or No management Pain Scale: 0-10 Numeric Is Patient Pain Free? Yes - Nurse 1 - General Ulcer Measurement Start: 02/05/21 13:19 Freq: Status: Active Protocol: Activity Type Activity Date Activity User E-Sign Co-Sign Detail Recorded Client Recorded Date Recorded By Document 02/05/21 13:19 [facility] Desktop 02/05/21 13:30 [facility] 02/05/21 13:19 Wound Center Nurse 1 #4- SACRAL -Combined with other wound No -Current Size (cm) - Length 10.5 -Current Size (cm) - Width 6.1 -Current Size (cm) - Depth 2.5 -Total Square Cm 64.05 -Photo Taken No -Epithelialization Small 1-33% -Tunneling No -Undermining/Tunneling No -Circular Undermining No -Exudate Amt Large -Exudate Type Yellow/Green -Wound Margin Distinct, Outline Attached -Granulation Amt Large (67-100%) -Granulation Quality Red -Slough/Fibrin Yes -Necrotic Tissue Type Adherent Slough -Texture (Mirlande-wound Skin Appearance) Assessed, Scarring -Moisture (Mirlande-wound Skin Appearance) Assessed -Color (Mirlande-wound Skin Appearance) Assessed, Erythema -Temperature (Mirlande-wound Skin No Abnormality Appearance) (Pt Warm) -Tenderness on Palpation (Mirlande-wound Yes Skin Appearance) -Ulcer Cleansing Wound Cleanser -Foul Odor after Cleansing No -Anesthetic Used 4% Lidocaine Solution WC - Nurse 2 - General Ulcer CM Notes Start: 02/05/21 13:19 Freq: Status: Active Protocol: Activity Type Activity Date Activity User E-Sign Co-Sign Detail Recorded Client Recorded Date Recorded By Document 02/05/21 13:51 [email or web address] 02/05/21 13:53 02/05/21 13:51 Wound Center Nurse 2 -Time 13:51 -Correct Patient Yes -Correct Side, Site, Position Yes -Correct Procedure Yes -Procedure Performed Yes -Type of Procedure Debridement -Clinical Debridement Muscle / Fascia -Tissue Removed Muscle,Fascia -Post Debridement (cm) - Length 9.2 -Post Debridement (cm) - Width 8 -Post Debridement (cm) - Depth 2.4 -Total Square (Post) (cm) 73.6 -Area of Debridement (cm) - Length 9.2 -Area of Debridement (cm) - Width 8 -Total Square (Area) (cm) 73.6 -Tunneling No -Undermining/Tunneling No -Circular Undermining No -Wound/Ulcer Outcome Not Healed -Ulcer Cleansing Rinsed/ Irrigated with Saline -Foul Odor after Cleansing No -Bioengineered Tissue No -Bleeding Controlled with Pressure -Offloading No -Treatment Response Procedure Tolerated Well -Debridement - Muscle / Fascia, 1st Yes 20sq cm -Debridement, Muscle/Fascia, ea addt'l 3 20sq cm or part thereof Pain Scale: 0-10 Numeric Is Patient Pain Free? Yes - Nurse 3 - General Ulcer D/C NN Start: 02/05/21 13:19 Freq: Status: Active Protocol: Activity Type Activity Date Activity User E-Sign Co-Sign Detail Recorded Client Recorded Date Recorded By Document 02/05/21 14:04 [facility] Desktop 02/05/21 14:04 [facility] 02/05/21 14:04 Wound Care Nurse 3 #4- SACRAL -Ulcer Cleansing Rinsed/ Irrigated with Saline -Foul Odor after Cleansing No -Primary Dressing Applied Aquacel AG 4x4 -Primary Dressing Covered/Secured with Secured with Tape,Other -Other Covering abd -Aquacel AG 4x4 1 Treatment Response Procedure Tolerated Well Pain Scale: 0-10 Numeric Is Patient Pain Free? Yes - Visit Discharge Discharge Condition Stable Ambulatory Status Stretcher Transportation Ambulance Facility Type [facility] Wound debrided: Sacral ulcer Laterality: Not Applicable Wound Grade/Stage: Stage IV Type of Debridement: Excisional debridement Anesthesia Used: 5% Lidocaine Gel Depth: Down to and including healthy tissue, in the subcutaneous layer and to muscle Percentage of wound debrided: 100 Instrument Used: 7mm curette Tissue Removed: Subcutaneous tissue and slough Severity: Fat Layer Exposed Amount of bleeding with debridement: Mild Bleeding Controlled with: Pressure Patient tolerated procedure: Patient tolerated procedure well Assessment/Plan Assessment/Plan (1) Pressure ulcer of sacral region, stage 4: CODE(S): L89.154 - Pressure ulcer of sacral region, stage 4 (2) Osteomyelitis of pelvic region: CODE(S): M86.9 - Osteomyelitis, unspecified (3) Type II diabetes mellitus: CODE(S): E11.9 - Type 2 diabetes mellitus without complications (4) Tobacco abuse: CODE(S): Z72.0 - Tobacco use (5) Debility: CODE(S): R53.81 - Other malaise PLAN: Wound care - Dakin's moistened gauze topped with ABD or ultra absorbant? dressing changes daily.? (Wound VAC discontinued due to the excoriated mirlande wound area, most likely caused from wound VAC drape).? She had a colostomy placed by Dr. Fortune on 01/22/21. ? Operative tissue cultures positive for Enterococcus avium, Corynebacterium striatum, Morganella morganii, Anaerobic cocci, Porphyromonas species, Clostridium group and Bacteroides uniformis. Operative bone culture was negative. ID is consulted.? She received? Vancomycin and Cefapine while at the skilled nursing.? Encouraged to stop smoking as it may be deleterious to wound healing.? Encouraged protein supplementation.? Follow up 3 weeks.
== END 2021-02-11 23:59 ==
LOC: WC 13:29
PROVIDERS: PCP Family Medicine; Visit Provider Nurse Practitioner Family
DX: L89.154 Pressure ulcer of sacral region, stage 4 (principal); Z86.73 Personal history of transient ischemic attack (TIA), and cerebral infarction without residual deficits; E11.9 Type 2 diabetes mellitus without complications; Z86.14 Personal history of Methicillin resistant Staphylococcus aureus infection; Z86.19 Personal history of other infectious and parasitic diseases; Z93.3 Colostomy status
CPT/HCPCS: 11043; 11046

== ENCOUNTER → 2021-02-18 13:39 | Outpatient (CLI) | payer MEDICARE, MEDICAID, SELFPAY ==
[2021-02-05 13:19] VITALS: BMI 22.4
[2021-02-18 16:11] LABS: Color, Urine Yellow (Yellow); Glucose, Dipstick Normal (Normal); Ketone-Dipstick Negative (Negative); Leukocyte Esterase-Dipstick 500 /ul (Negative); Nitrite-Dipstick Positive (Negative); Occult Blood-Urine 150 /ul (Negative); Protein-Dipstick 30 mg/dl (Negative); Urine Bilirubin Dipstick Negative (Negative); Urine Clarity Cloudy (Clear); Urine Urobilinogen Normal (Normal)
== END ==
PROVIDERS: PCP Family Medicine; Referring Provider Family Medicine; Visit Provider Family Medicine
DX: N39.498 Other specified urinary incontinence (principal); E11.69 Type 2 diabetes mellitus with other specified complication
CPT/HCPCS: 81002; 87077; 87086; 87088; 87186

== ENCOUNTER 2021-03-03 18:19 | Emergency (ER) | payer MEDICARE, MEDICAID, SELFPAY ==
[2021-03-03 18:20] VITALS: BP 101/62; PULSE 120; RESP 16; TEMP 36.7; O2SAT 87; BMI 22.4
--- NOTE | 2021-03-03 19:25 | CT_ITS ---
INDICATION: obstruction EXAMINATION: CT Abdomen And Pelvis W/ Contrast Injection TECHNIQUE: Helically acquired images were obtained of the abdomen and pelvis after IV contrast. A radiation dose optimization technique was used for this scan. IV Contrast dosage and agent: Oral and amp; IV Gastrografin and amp; 100mL Isovue-370 Oral contrast: Yes. COMPARISON: 01/26/2021. FINDINGS: Visualized lung bases: Calcified granulomas in the right middle lobe. Liver: Multiple calcified granulomas. Gallbladder: Unremarkable Spleen: Multiple splenic granulomas. Pancreas: Unremarkable Adrenal Glands: Unremarkable Kidneys: Unremarkable Vasculature: Severe aortoiliac atherosclerotic disease. GI Tract: Hiatal hernia. Status post resection of the sigmoid colon with a left lower quadrant colostomy Lymphadenopathy: None Peritoneum: No ascites. Increased presacral fat stranding. Bladder: ORTIZ catheter in place. Reproductive organs: Unremarkable Bones/Soft tissues: There are diffuse degenerative changes of the spine. Chronic compression fractures in the lumbar spine, some of which are status post vertebroplasty. Soft tissue anasarca. Sacral stimulator in the left buttocks. Partially visualized fracture deformity of the left proximal femur status post ORIF with intramedullary lianne. CT/Abdomen/Pelvis WITH Contrast IMPRESSION: No evidence of bowel obstruction. Presacral inflammatory changes in the pelvis of unclear significance. One possible etiology could be proctitis. Recommend clinical correlation. Chronic compression fractures in the lumbar spine, some of which are status post vertebroplasty. Electronically Signed: Luis F Izquierdo MD at 21:49 EDT Tel , Service support ,
--- NOTE | 2021-03-03 19:27 | EDS_ITS ---
HPI HPI - GI History of Present Illness Chief Complaint: Abd Pain Detail of Chief Complaint: No stool from the colostomy for the last 3 days. Informant: patient and spouse/S.O. Abdominal Pain/Flank Pain Onset: Days Context: Gradual Onset Timing: Continuous Current Severity: Mild Maximum Severity: Mild Nausea/Vomiting/Emesis GI Symptom: Negative for Nausea and Vomiting Diarrhea/Melena/Hematochezia GI Symptom: Negative for Diarrhea Associated Symptoms Associated Symptoms: Positive for Dysuria Narrative Narrative: 70-year-old female limited informant. present in the room and gives the history. Patient has a colostomy bag left lower quadrant. states he has been no stool from that for the last 3 days. He said the last bowel movement was on . He said the bags been changed and made no improvement. She denies any abdominal pain. She has had no nausea or vomiting. No fever. 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 Decubitus ulcer of left heel, stage 4 Diabetes Dysphagia following cerebrovascular accident (CVA) Former smoker Frozen shoulder GERD (gastroesophageal reflux disease) Gout History of MRSA infection History of pressure ulcer History of transesophageal echocardiography ([facility]) HTN (hypertension) Hx of echocardiogram Hx TIA/stroke w/o resid Intertrochanteric fracture of left hip Left humeral fracture Neurogenic bladder Neurogenic bladder Neuropathy Nocturia On home oxygen therapy Osteoporosis PAD (peripheral artery disease) Peripheral vascular disease Stroke/cerebrovascular accident Tobacco abuse Type II diabetes mellitus Urge incontinence Urinary retention Vitamin D deficiency Wears dentures Home Medications hydrochlorothiazide 12.5 mg PO DAILY 06/16/18 [History Last Taken 02/11/19] losartan 100 mg PO DAILY 06/16/18 [History Last Taken 01/21/21] rosuvastatin 5 mg PO QHS 09/08/18 [History Last Taken 02/11/19] metformin 500 mg PO BID 04/30/20 [History Last Taken Unknown] aspirin 81 mg PO DAILY@0800 11/06/20 [History Last Taken Unknown] amlodipine 10 mg PO DAILY 01/18/21 [History Last Taken 01/21/21] sennosides-docusate sodium 2 tab-cap PO QHS 01/18/21 [History Last Taken Unknown] oxycodone 5 mg PO Q4H PRN PRN 7 Days #15 tab 01/24/21 [Rx Last Taken 01/25/21 23:00] Allergy/AdvReac Type Severity Reaction Status Date / Time amoxicillin [From Augmentin] Allergy Rash Verified 03/03/21 18:27 atorvastatin [From Lipitor] Allergy Other Verified 03/03/21 18:27 clavulanic acid Allergy Rash Verified 03/03/21 18:27 [From Augmentin] gabapentin Allergy Nausea Verified 03/03/21 18:27 lisinopril Allergy PT UNSURE Verified 03/03/21 18:27 OF REACTION mold Allergy PT UNSURE Verified 03/03/21 18:27 OF REACTION pollen extracts Allergy PT UNSURE Verified 03/03/21 18:27 OF REACTION quinapril [From Accupril] Allergy Rash Verified 03/03/21 18:27 ragweed pollen Allergy PT UNSURE Verified 03/03/21 18:27 OF REACTION simvastatin [From Zocor] Allergy PT UNSURE Verified 03/03/21 18:27 OF REACTION tramadol Allergy PT UNSURE Verified 03/03/21 18:27 OF REACTION tuberculin, purified protein Allergy PT UNSURE Verified 03/03/21 18:27 deriva OF REACTION fluoxetine AdvReac Other Verified 03/03/21 18:27 Family History Mother Tuberculosis Father Heart disease CVA (cerebral vascular accident) Sister Multiple sclerosis Brother Heart disease Surgical History History of lumpectomy of right breast History of partial hysterectomy History of right-sided carotid endarterectomy Hx of bladder repair surgery Hx of tonsillectomy Social History Smoking Status: Light Smoker (<10/day) Tobacco: How many years used: 53 second hand exposure: Yes alcohol intake: never substance use type: does not use caffeine: Yes what type of physical activity do you participate in: none frequency: does not exercise ROS ROS ED ROS Narrative Patient denies recent illness. Review of Systems ROS Unobtainable: Denies due to encephalopathy Constitutional Constitutional ED: Denies chills or fever(s) ENT ENT ED: Denies ear pain or sore throat Cardiovascular Cardiovascular: Denies chest pain Respiratory/Chest Respiratory/Chest: Denies cough or dyspnea Gastrointestinal Gastrointestinal: Reports constipation; Denies abdominal pain Genitourinary Genitourinary ED: Denies dysuria Musculoskeletal Musculoskeletal: Denies myalgias Integumentary Denies rash Neurologic Neurologic: Denies headache(s) Psychiatric Psychiatric: Denies depression Endocrine Endocrinology: Denies polyuria Hematologic/Lymphatic Hematologic/Lymphatic: Denies easy bruising Allergic/Immunologic Allergic/Immunologic ED: Denies urticaria EXAM Physical Exam Narrative Exam Narrative: Elderly female no acute distress. Vital signs stable afebrile. HEENT exam unremarkable. Lungs clear to auscultation. Heart regular rhythm rate about 100 no murmur. Abdomen soft nontender nondistended normal bowel sounds no peritoneal signs. Abdomen is completely benign. She has a colostomy bag is empty. There is no liquid or stool in it whatsoever. The abdomen however is completely nontender. Moving all 4 extremities. Neurologically she is awake and alert. She is very hard of hearing. Const Vital Signs: 03/03/21 18:20 03/03/21 20:31 Temperature 98.1 F Temperature Source Oral Pulse Rate 120 H Respiratory Rate 16 Blood Pressure 101/62 106/57 L Blood Pressure Mean 75 73 Pulse Ox 87 Oxygen Delivery Method Room Air Positive well nourished and well developed General Appearance ED: well developed HEENT Reports moist mucous membranes normocephalic and atraumatic; Negative for trauma or tenderness Eyes PERRL and EOMs intact bilaterally Neck no lymphadenopathy, supple and no JVD General: Negative for tenderness Resp normal respiratory effort and clear to auscultation bilaterally Cardio regular rate, regular rhythm and no murmurs GI non-tender, non-distended and no masses GI Narrative: LLQ colostomy bag that is empty. Inspection: Negative for abdominal distention Auscultation: normoactive bowel sounds; Negative for hyperactive bowel sounds or hypoactive bowel sounds Palpation: soft; Negative for tender, guarding, rigid or rebound tenderness present Extremity full ROM General Extremety ED: Negative for edema or tenderness General Extremity: Negative for edema Neuro moves all extremities Sensorium / Orientation: alert, oriented to person and oriented to place Psych mental status grossly normal Skin Lesions: no lesions Rashes: no rashes MDM MDM MDM Narrative Medical decision making narrative: Elderly female with a colostomy bag that is passed no stool for the last 3 days. CAT scan and pending. Repeat exam patient doing well at 10:55 PM. Abdomen is benign. Nondistended. Aware of her test results with her and her . CAT scan is not showing any signs of obstruction which I agree with because clinically she does not have 1. She will be given a bottle of magnesium citrate to take in the morning. If she continues to not have stool she will need further evaluation possible endoscopy to see if there is any type of stenosis by the ostomy. Lab Data Attestation: I reviewed the patient's lab results. Lab results narrative: White count 12. Hemoglobin 10.9 which is her baseline chronic anemia. Electrolytes unremarkable normal creatinine and gap. CT shows no acute abnormalities read by the radiologist. Labs: Laboratory Results - last 24 hr 03/03/21 03/03/21 18:30 18:30 WBC 12.0 H RBC 3.89 L Hgb 10.9 L Hct 34.6 L MCV 88.9 MCH 28.0 MCHC 31.5 L RDW Std Deviation 49.9 H RDW Coeff of Mirza 15.3 H Plt Count 815 H* MPV 9.8 Immature Gran % (Auto) 0.400 Neut % (Auto) 76.1 H Lymph % (Auto) 16.0 L [place] % (Auto) 5.7 Eos % (Auto) 1.1 Baso % (Auto) 0.7 Absolute Neuts (auto) 9.1 H Absolute Lymphs (auto) 1.92 Nucleated RBC % 0 Differential Comment SCANNED Diff Path Review May foll Sodium 135 L Potassium 3.9 Chloride 96 L Carbon Dioxide 31.0 Anion Gap 8 BUN 14 Creatinine 0.41 L Estim Creat Clear Calc 44.56 Est GFR (MDRD) Af Amer 196 Est GFR (MDRD) Non-Af 162 BUN/Creatinine Ratio 34.1 H Glucose 103 Calcium 9.3 Radiography Diagnostic Testing: Radiology Impression Abdomen/Pelvis CT 03/03/21 19:25 IMPRESSION: No evidence of bowel obstruction. Presacral inflammatory changes in the pelvis of unclear significance. One possible etiology could be proctitis. Recommend clinical correlation. Chronic compression fractures in the lumbar spine, some of which are status post vertebroplasty. Electronically Signed: Luis F Izquierdo MD at 21:49 EDT Tel , Service support , Discharge Plan Triage Chief Complaint: Abd Pain ED Provider: Chaitanya Yancey Dx/Rx/DC Orders Clinical Impression: Constipation Instructions: ED Constipation (Adult) Prescriptions: No Action hydrochlorothiazide 25 MG tablet 12.5 mg PO DAILY RF: 0 losartan 100 MG tablet 100 mg PO DAILY RF: 0 rosuvastatin 5 MG tablet 5 mg PO QHS RF: 0 metformin 500 MG tablet 500 mg PO BID RF: 0 aspirin 81 MG tablet,chewable 81 mg PO DAILY@0800 RF: 0 sennosides-docusate sodium 8.6-50 mg Tablet 2 tab-cap PO QHS RF: 0 amlodipine 10 mg Tablet 10 mg PO DAILY RF: 0 oxycodone 5 mg Tablet 5 mg PO Q4H PRN PRN (Reason: pain) 7 Days Qty: 15 RF: 0 Primary Care Provider: Ifeanyi Duong Referrals: Ifeanyi Duong MD [Primary Care Provider] - 2 Days Activity Restrictions/Additional Instructions: Your labs and CAT scan all were unremarkable other than you are constipated. We will give you a bottle of magnesium citrate. You can take that tomorrow morning to help you have a bowel movement and should push things in your colostomy bag. If that does not work you need to follow-up because you may need to have another colonoscopy through your ostomy to see if there is any narrowing. Plenty of fluids and fiber to prevent constipation. Disposition Disposition: Home, self care
[2021-03-03 19:37] LABS: Absolute Lymphocyte Count 1.92 X10^3/uL (0.83-4.51); Absolute Neutrophil Count 9.1 X10^3/uL (2.0-7.7); Basophil# 0.08 X10^3/uL; Basophil% 0.7 % (0-1); Eosinophil# 0.13 X10^3/uL; Eosinophils% 1.1 % (0-5); Hematocrit 34.6 % (37-47); Hemoglobin 10.9 g/dL (12.0-15.0); Lymphocyte # 1.92 X10^3/ul (0.83-4.51); Mean Corp Hgb Conc 31.5 g/dL (32-36); Mean Corpuscular Volume 88.9 fL (81-99); Mean Platelet Vol. 9.8 fl (6.2-12.0); Monocyte# 0.68 X10^3/uL; Monocyte% 5.7 % (0-10); NRBC Flagged by Analyzer 0 % (0-5); Neutrophil # 9.11 X10^3/uL (2.7-7.7); Neutrophil % 76.1 % (47-70); POSITIVE COUNT YES; RBC Distribution Width CV 15.3 % (11.6-14.6); RBC Distribution Width SD 49.9 fl (35.1-43.9); Red Blood Count 3.89 M/mm3 (4.2-5.4)
[2021-03-03 19:38] LABS: Differential Indicated SCAN CRITERIA MET
[2021-03-03 19:39] LABS: Platelet Count 815 K/mm3 (150-450)
[2021-03-03 19:45] LABS: Anion Gap 8 (5-15); BUN 14 mg/dL (7-18); BUN/Creat Ratio 34.1 RATIO (10-20); Calcium,Total 9.3 mg/dL (8.5-10.1); Chloride 96 mmol/L (98-107); Creatinine, Serum 0.41 mg/dL (0.55-1.02); EST Glomerular Filtration Rate 162 mL/min (>60); Est Glom Filt Rate - Afr Amer 196 mL/min (>60); Estimated Creatinine Clearance 44.56 ml/min; Glucose 103 mg/dL (74-106); Potassium 3.9 mmol/L (3.5-5.1); Sodium Level 135 mmol/L (136-145)
[2021-03-03] MEDS: HYDROcodone Bitartrate/Apap 5/325 Tablet PO ×2 (19:47→21:36)
[2021-03-03] MEDS: 0.9% Normal Saline 1,000 ML 125 ML IV (19:49)
--- NOTE | 2021-03-03 19:50 | ED.RN ---
PTS S/O STATES NO BM AFTER CHANGING INTO THE NEW COLOSTOMY BAG. I TRIED TO EDUCATE THE S/O THAT A BAG DOESN'T CHANGE OUTPUT. S/O DOESN'T UNDERSTAND. ENCOURAGED PT TO DRINK CONTRAST BUT SHE STATES IT TASTES LIKE SHIT. SPOUSE TO ENCOURAGE PATIENT TO TAKE SMALL SIPS UNTIL ITS DONE.
[2021-03-03 20:19] LABS: Differential Comment SCANNED
[2021-03-03 20:31] VITALS: BP 106/57
[2021-03-03] MEDS: Magnesium Citrate 300 ML PO (23:17)
[2021-03-03 23:18] VITALS: BP 107/75; PULSE 75; RESP 16; O2SAT 93
--- NOTE | 2021-03-03 23:19 | ED.RN ---
Updated LESLIE LuevanoA of results, educated her on Magnesium Citrate and f/u care.
[2021-03-05 11:31] LABS: Pathologist Review Reviewed
== END 2021-03-03 23:32 | disposition home or self-care (01) ==
PROVIDERS: Emergency Provider Emergency Medicine; PCP Family Medicine
DX: K59.00 Constipation, unspecified (principal); F17.200 Nicotine dependence, unspecified, uncomplicated; I25.10 Atherosclerotic heart disease of native coronary artery without angina pectoris; E11.40 Type 2 diabetes mellitus with diabetic neuropathy, unspecified; E11.51 Type 2 diabetes mellitus with diabetic peripheral angiopathy without gangrene; I10 Essential (primary) hypertension; Z79.84 Long term (current) use of oral hypoglycemic drugs; Z79.899 Other long term (current) drug therapy; Z86.73 Personal history of transient ischemic attack (TIA), and cerebral infarction without residual deficits; Z93.3 Colostomy status; Z79.82 Long term (current) use of aspirin
CPT/HCPCS: 74177; 80048; 85025; 96360; 96361; 99285; J7030; Q9967

== ENCOUNTER 2021-03-06 11:09 | Inpatient (IN) | payer MEDICARE, MEDICAID, SELFPAY ==
[2021-03-06] VITALS (13 sets, daily range): BP systolic 96–120; BP diastolic 52–75; PULSE 80–110; RESP 18–20; TEMP 36.6–36.8; O2SAT 91–96; BMI 21.0
[2021-03-06 11:59] LABS: Absolute Lymphocyte Count 1.64 X10^3/uL (0.83-4.51); Absolute Neutrophil Count 7.6 X10^3/uL (2.0-7.7); Basophil# 0.07 X10^3/uL; Basophil% 0.7 % (0-1); Eosinophil# 0.14 X10^3/uL; Eosinophils% 1.4 % (0-5); Hematocrit 33.4 % (37-47); Hemoglobin 10.4 g/dL (12.0-15.0); Lymphocyte # 1.64 X10^3/ul (0.83-4.51); Mean Corp Hgb Conc 31.1 g/dL (32-36); Mean Corpuscular Hgb 27.4 pg (27.0-32.0); Mean Corpuscular Volume 87.9 fL (81-99); Mean Platelet Vol. 9.5 fl (6.2-12.0); Monocyte# 0.63 X10^3/uL; Monocyte% 6.1 % (0-10); NRBC Flagged by Analyzer 0 % (0-5); Neutrophil # 7.63 X10^3/uL (2.7-7.7); Neutrophil % 74.4 % (47-70); POSITIVE COUNT YES; RBC Distribution Width CV 15.6 % (11.6-14.6); RBC Distribution Width SD 50.3 fl (35.1-43.9); White Blood Count 10.3 K/mm3 (4.4-11.0)
[2021-03-06 12:01] LABS: Differential Indicated SCAN CRITERIA MET; Platelet Count 793 K/mm3 (150-450)
[2021-03-06 12:20] LABS: Anion Gap 7 (5-15); BUN 12 mg/dL (7-18); BUN/Creat Ratio 29.1 RATIO (10-20); Calcium,Total 9.4 mg/dL (8.5-10.1); Chloride 98 mmol/L (98-107); Creatinine, Serum 0.41 mg/dL (0.55-1.02); EST Glomerular Filtration Rate 161 mL/min (>60); Est Glom Filt Rate - Afr Amer 195 mL/min (>60); Estimated Creatinine Clearance 44.34 ml/min; Glucose 97 mg/dL (74-106); Potassium 4.5 mmol/L (3.5-5.1); Sodium Level 135 mmol/L (136-145)
--- NOTE | 2021-03-06 13:29 | EKG12_ITS ---
Test Reason : Blood Pressure : / mmHG Vent. Rate : 107 BPM Atrial Rate : 153 BPM P-R Int : 000 ms QRS Dur : 076 ms QT Int : 338 ms P-R-T Axes : 000 054 056 degrees QTc Int : 451 ms Atrial fibrillation with rapid ventricular response with premature ventricular or aberrantly conducte d complexes Abnormal ECG Confirmed by BETTY SAUCEDO, CARLOS ([id number]), website/blog editor ROCKY ANGELA ([id number]) on 03/13/2021 10:46:56 AM Referred By: GREER Confirmed By:CARLOS HERNÁNDEZ MD
[2021-03-06] MEDS: 0.9% Normal Saline 1,000 ML 50 ML IV (13:33)
[2021-03-06 14:36] LABS: International Normalized Ratio 1.1; Prothrombin Time (Protime)PT. 13.2 SECONDS (11.7-14.9)
[2021-03-06 14:37] LABS: Partial Thromboplast Time 28.4 Seconds (24.1-36.2)
[2021-03-06 14:55] LABS: Mucous, Urine 0 SEEN /hpf (<or=2+); Squamous Epithelial Cells - UA 0 SEEN /hpf (5-10)
--- NOTE | 2021-03-06 14:58 | RAD_ITS ---
STUDY: X-RAY CHEST REASON FOR EXAM: Female, 70 years old. Cough TECHNIQUE: By STUDY: X-RAY CHEST REASON FOR EXAM: Female, 70 years old. Cough TECHNIQUE: AP COMPARISON: 01/26/2021 FINDINGS: The heart is not enlarged. The lung peguero revealed no evidence of consolidation or atelectasis. There are multiple calcified granulomas in the right lung with large calcified lymph nodes noted in the infracarinal area. Old healed fracture of the neck of the left humerus. The bony thorax is somewhat osteoporotic. No evidence of pleural effusion or pneumothorax. The trachea is in the midline RAD/Chest 1 View (Portable) IMPRESSION: No airspace consolidation or pleural effusion. Electronically Signed: Shruthi Mosquera, at 15:41 EDT Tel , Service support ,
[2021-03-06 15:03] LABS: Color, Urine Yellow (Yellow); Glucose, Dipstick Normal (Normal); Ketone-Dipstick Negative (Negative); Leukocyte Esterase-Dipstick 500 /ul (Negative); Nitrite-Dipstick Positive (Negative); Occult Blood-Urine 25 /ul (Negative); Protein-Dipstick 15 mg/dl (Negative); Urine Bilirubin Dipstick Negative (Negative); Urine Clarity Sl. Cloudy (Clear); Urine Urobilinogen Normal (Normal)
[2021-03-06 15:35] LABS: Bacteria 4+ /hpf (None Seen); Red Blood Cells-Urine 0-5 SEEN /hpf (0-5); White Blood Cells 50-100 SEEN /hpf (0-5)
[2021-03-06 15:55] LABS: Reflex Lactate? Y
--- NOTE | 2021-03-06 16:41 | EX.ED.DYSGE1 ---
HPI History of Present Illness Chief Complaint: Wound Informant: patient Onset/Context/Timing Onset: Month(s) Context: Gradual Onset Timing: Continuous Quality: Aching and sharp Location: Sacrum Worsened by: Nothing Relieved by: Nothing Narrative Narrative: Patient presents with possible sepsis from sacral decubitus ulcer. Patient states she has had sacral decubitus ulcer for a long time. Patient was noted to have some increasing drainage from the ulcer. Patient is a poor historian. Patient is very hard of hearing. Patient denies any fevers. Patient denies any abdominal pain. Patient denies any nausea or vomiting. Patient denies any chest pain or shortness of breath. [facility] Medical History (Updated 03/06/21 @ 17:[address] 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 Decubitus ulcer of left heel, stage 4 Dementia Depression Diabetes Dysphagia following cerebrovascular accident (CVA) Former smoker Frozen shoulder GERD (gastroesophageal reflux disease) Gout History of MRSA infection History of pressure ulcer History of transesophageal echocardiography (MAR[place]) HTN (hypertension) Hx of echocardiogram Hx TIA/stroke w/o resid Intertrochanteric fracture of left hip Left humeral fracture Neurogenic bladder Neurogenic bladder Neuropathy [place] On home oxygen therapy Osteoporosis PAD (peripheral artery disease) Peripheral vascular disease Smoker Stroke/cerebrovascular accident Tobacco abuse Type II diabetes mellitus Urge incontinence Urinary retention Vitamin D deficiency Wears dentures Home Medications hydrochlorothiazide 12.5 mg PO DAILY 06/16/18 [History Last Taken 02/11/19] losartan 100 mg PO DAILY 06/16/18 [History Last Taken 01/21/21] rosuvastatin 5 mg PO QHS 09/08/18 [History Last Taken 02/11/19] metformin 500 mg PO BID 04/30/20 [History Last Taken Unknown] aspirin 81 mg PO DAILY@0800 11/06/20 [History Last Taken Unknown] amlodipine 10 mg PO DAILY 01/18/21 [History Last Taken 01/21/21] sennosides-docusate sodium 2 tab-cap PO QHS 01/18/21 [History Last Taken Unknown] oxycodone 5 mg PO Q4H PRN PRN 7 Days #15 tab 01/24/21 [Rx Last Taken 01/25/21 23:00] Allergy/AdvReac Type Severity Reaction Status Date / Time amoxicillin [From Augmentin] Allergy Rash Verified 03/06/21 11:20 atorvastatin [From Lipitor] Allergy Other Verified 03/06/21 11:20 clavulanic acid Allergy Rash Verified 03/06/21 11:20 [From Augmentin] gabapentin Allergy Nausea Verified 03/06/21 11:20 lisinopril Allergy PT UNSURE Verified 03/06/21 11:20 OF REACTION mold Allergy PT UNSURE Verified 03/06/21 11:20 OF REACTION pollen extracts Allergy PT UNSURE Verified 03/06/21 11:20 OF REACTION quinapril [From Accupril] Allergy Rash Verified 03/06/21 11:20 ragweed pollen Allergy PT UNSURE Verified 03/06/21 11:20 OF REACTION simvastatin [From Zocor] Allergy PT UNSURE Verified 03/06/21 11:20 OF REACTION tramadol Allergy PT UNSURE Verified 03/06/21 11:20 OF REACTION tuberculin, purified protein Allergy PT UNSURE Verified 03/06/21 11:20 deriva OF REACTION fluoxetine AdvReac Other Verified 03/06/21 11:20 Family History Mother Tuberculosis Father Heart disease CVA (cerebral vascular accident) Sister Multiple sclerosis Brother Heart disease Surgical History (Updated 03/06/21 @ 16:59 by Aleena Richardson) History of appendectomy History of lumpectomy of right breast History of partial hysterectomy History of right-sided carotid endarterectomy Hx of bladder repair surgery Hx of tonsillectomy Social History Smoking Status: Current every day smoker tobacco type: cigarettes Tobacco: How many years used: 53 second hand exposure: Yes alcohol intake: never substance use type: does not use caffeine: Yes what type of physical activity do you participate in: none frequency: does not exercise ROS ROS ED Constitutional Constitutional ED: Denies chills or fever(s) Eyes Eyes: Denies blurry vision or change in vision ENT ENT ED: Denies rhinorrhea or sore throat Cardiovascular Cardiovascular: Denies chest pain or palpitations Respiratory/Chest Respiratory/Chest: Denies cough or dyspnea Gastrointestinal Gastrointestinal: Denies nausea or vomiting Genitourinary Genitourinary ED: Denies dysuria or hematuria Musculoskeletal Musculoskeletal: Reports back pain and neck pain Integumentary Denies abscess or rash Neurologic Neurologic: Denies headache(s) or weakness Allergic/Immunologic Allergic/Immunologic ED: Denies mouth swelling or urticaria EXAM Physical Exam Const Vital Signs: 03/06/21 11:09 03/06/21 11:15 03/06/21 11:20 Temperature 98 F 98 F 98 F Temperature Source Temporal Temporal Temporal Pulse Rate 108 H 108 H 95 Respiratory Rate 20 H 20 H 18 Blood Pressure 100/74 100/74 117/70 Blood Pressure Mean 82 82 85 Pulse Ox 92 92 96 Oxygen Delivery Method Room Air Room Air Room Air 03/06/21 11:32 03/06/21 12:20 03/06/21 13:00 Temperature 98 F 98 F Temperature Source Temporal Temporal Pulse Rate 100 100 100 Respiratory Rate 18 18 18 Blood Pressure 117/70 120/68 96/58 L Blood Pressure Mean 85 85 70 Pulse Ox 95 96 96 Oxygen Delivery Method Room Air Room Air Room Air 03/06/21 14:00 03/06/21 14:15 03/06/21 15:53 Temperature 98 F 98 F 98.0 F Temperature Source Temporal Temporal Temporal Pulse Rate 110 H 105 H 107 H Respiratory Rate 20 H 18 18 Blood Pressure 108/75 118/64 99/52 L Blood Pressure Mean 86 82 67 Pulse Ox 96 96 91 Oxygen Delivery Method Room Air Room Air Room Air 03/06/21 15:59 Temperature 98.0 F Temperature Source Temporal Pulse Rate Respiratory Rate Blood Pressure Blood Pressure Mean Pulse Ox Oxygen Delivery Method Positive cachectic General Appearance ED: cachectic Nutritional Appearance: cachectic HEENT Reports moist mucous membranes Neck supple and no JVD Resp normal respiratory effort and clear to auscultation bilaterally Cardio regular rate Rhythm: abnormal rhythm irregularly irregular GI normal to inspection, nondistended, normoactive bowel sounds Palpation: soft and tender suprapubic Back/Spine Lumbar Spine / Lower Back: lumbar spinal tenderness Neuro CN's II-XII intact bilaterally and no sensory deficits noted Sensorium / Orientation: alert Motor Exam: general weakness Skin Skin Narrative: There is a stage IV sacral decubitus ulcer. There is some mild purulent drainage noted on the dressing. Wound culture was obtained. There is some surrounding erythema. There is no induration. MDM MDM MDM Narrative Medical decision making narrative: EKG was obtained. On my interpretation, it shows atrial fibrillation with a rate of 107. There is an occasional PVC noted. There are no acute ST or T wave changes. CBC shows a hemoglobin of 10.4 hematocrit of 33.4. Platelets were elevated at 793 however these were improved compared to previous result. Basic metabolic profile was essentially within normal limits. Lactate was 2.0. PT with INR and PTT were normal. Portable 1 view chest x-ray was obtained. On my interpretation, lung peguero are clear. There is normal cardiac silhouette. Bony thorax is normal. There is no acute process noted. Radiologist also interpreted the x-ray and agrees. Urinalysis shows leukocyte esterase of 500 with positive nitrites. There were 50-100 white blood cells. Urine culture, blood cultures, and wound cultures were obtained. Patient was started on Rocephin and vancomycin. Patient feels better on reevaluation. Case was discussed with the hospitalist. He will admit the patient to his service. Family understood and was agreeable with the plan. All questions were answered. Lab Data Attestation: I reviewed the patient's lab results. Labs: Laboratory Results - last 24 hr 03/06/21 03/06/21 03/06/21 11:35 11:35 11:35 WBC 10.3 RBC 3.80 L Hgb 10.4 L Hct 33.4 L MCV 87.9 MCH 27.4 MCHC 31.1 L RDW Std Deviation 50.3 H RDW Coeff of Mirza 15.6 H Plt Count 793 H* MPV 9.5 Immature Gran % (Auto) 1.400 H Neut % (Auto) 74.4 H Lymph % (Auto) 16.0 L [place] % (Auto) 6.1 Eos % (Auto) 1.4 Baso % (Auto) 0.7 Absolute Neuts (auto) 7.6 Absolute Lymphs (auto) 1.64 Nucleated RBC % 0 Differential Comment COMMENT Diff Path Review May foll PT INR APTT Sodium 135 L Potassium 4.5 Chloride 98 Carbon Dioxide 30.0 Anion Gap 7 BUN 12 Creatinine 0.41 L Estim Creat Clear Calc 44.34 Est GFR (MDRD) Af Amer 195 Est GFR (MDRD) Non-Af 161 BUN/Creatinine Ratio 29.1 H Glucose 97 Lactic Acid 2.0 Calcium 9.4 Urine Color Urine Clarity Urine pH Ur Specific [place] Urine Protein Urine Glucose (UA) Urine Ketones Urine Occult Blood Urine Nitrite Urine Bilirubin Urine Urobilinogen Ur Leukocyte Esterase Urine RBC Urine WBC Ur Squamous Epith Cells Urine Bacteria Urine Mucus 03/06/21 03/06/21 14:20 14:40 WBC RBC Hgb Hct MCV MCH MCHC RDW Std Deviation RDW Coeff of Mirza Plt Count MPV Immature Gran % (Auto) Neut % (Auto) Lymph % (Auto) [place] % (Auto) Eos % (Auto) Baso % (Auto) Absolute Neuts (auto) Absolute Lymphs (auto) Nucleated RBC % Differential Comment Diff Path Review PT 13.2 INR 1.1 APTT 28.4 Sodium Potassium Chloride Carbon Dioxide Anion Gap BUN Creatinine Estim Creat Clear Calc Est GFR (MDRD) Af Amer Est GFR (MDRD) Non-Af BUN/Creatinine Ratio Glucose Lactic Acid Calcium Urine Color Yellow Urine Clarity Sl. Cloudy Urine pH 8.0 Ur Specific [place] 1.010 Urine Protein 15 H Urine Glucose (UA) Normal Urine Ketones Negative Urine Occult Blood 25 H Urine Nitrite Positive H Urine Bilirubin Negative Urine Urobilinogen Normal Ur Leukocyte Esterase 500 H Urine RBC 0-5 SEEN Urine WBC 50-100 SEEN Ur Squamous Epith Cells 0 SEEN Urine Bacteria 4+ Urine Mucus 0 SEEN Radiography Chest X-Ray - ED: 1 View, Read by ED Physician, Read by Radiologist and Normal Diagnostic Testing: Radiology Impression Chest X-Ray 03/06/21 14:58 IMPRESSION: No airspace consolidation or pleural effusion. Electronically Signed: Shruthi Mosquera, at 15:41 EDT Tel , Service support , EKG Initial EKG: Interpretation: No Acute Injury Pattern and Atrial Fibrillation (107 with occasional PVCs) Treatment and Re-Evaluation Vital Sign Attestation:: Vital signs were reviewed prior to admission. Patient still has a slight tachycardia of 108 but it is stable. Discharge Plan Dx/Rx/DC Orders Clinical Impression: Sepsis, Pressure ulcer of sacral region, stage 4, Urinary tract infection Disposition Disposition: Acute Care [facility]
--- NOTE | 2021-03-06 16:48 | NURSING ---
DR YANG FOR DR SY
--- NOTE | 2021-03-06 17:01 | NURSING ---
MED SURG ASHELFAH SEPSIS, UTI, SACRAL DECUBITUS ULCER
--- NOTE | 2021-03-06 17:09 | PCM.HP.STD ---
[facility] - General General Date of Admission: 03/06/21 Date of Service: 03/06/21 Chief Complaint: Was referred to the ED by home health nurse. HPI Narrative TATIANA DICKEY, is a 70 F with past medical history as mentioned below was asked by the home health nurse to come to the emergency department for possible infection of the sacral decubitus ulcer. The patient is not able to provide any history and she very poor informant. Patient's was at the bedside and he also does not know what is going on. Reportedly, patient was seen by home health nurse today, notes that she has increasing drainage from the sacral decubitus ulcer and she request that patient to be taken to the ED. The patient herself has no complaints. She had history of sacral stage IV nonhealing decubitus ulcer and osteomyelitis, completed antibiotics couple of months ago and she underwent diverging colostomy. She had a history of hypertension which has been under control with Norvasc, losartan and HCTZ. She will history of chronic atrial fibrillation and she is not on any anticoagulation. In the emergency department, she was afebrile, mildly tachycardic, blood pressure was borderline, pulse ox was 96% on room air. Routine blood work was remarkable for chronic anemia, chronic thrombocytosis, otherwise normal. Urinalysis revealed cloudy urine, positive for nitrite and leukocyte esterase, there was 50-100 WBCs and 4+ bacteria. Chest x-ray showed no acute findings. She is being admitted for acute cystitis and stage IV decubitus sacral ulcer which could be acutely infected. [facility], LAT[facility] Medical History (Updated 03/06/21 @ 17:[address] Inna Maxwell MD) Atrial fibrillation CAD (coronary artery disease) Chronic indwelling [place] catheter Chronic neck pain Chronic ulcer of left heel with fat layer exposed Colostomy in place Decubitus ulcer of left heel, stage 4 Dementia Depression Dysphagia following cerebrovascular accident (CVA) GERD (gastroesophageal reflux disease) Gout History of MRSA infection History of pressure ulcer Intertrochanteric fracture of left hip Left humeral fracture Neurogenic bladder On home oxygen therapy Osteoporosis PAD (peripheral artery disease) Stroke/cerebrovascular accident Tobacco abuse Type II diabetes mellitus Vitamin D deficiency Home Medications hydrochlorothiazide 12.5 mg PO DAILY 06/16/18 [History Last Taken 02/11/19] losartan 100 mg PO DAILY 06/16/18 [History Last Taken 01/21/21] rosuvastatin 5 mg PO QHS 09/08/18 [History Last Taken 02/11/19] metformin 500 mg PO BID 04/30/20 [History Last Taken Unknown] aspirin 81 mg PO DAILY@0800 11/06/20 [History Last Taken Unknown] amlodipine 10 mg PO DAILY 01/18/21 [History Last Taken 01/21/21] sennosides-docusate sodium 2 tab-cap PO QHS 01/18/21 [History Last Taken Unknown] oxycodone 5 mg PO Q4H PRN PRN 7 Days #15 tab 01/24/21 [Rx Last Taken 01/25/21 23:00] Allergy/AdvReac Type Severity Reaction Status Date / Time amoxicillin [From Augmentin] Allergy Rash Verified 03/06/21 11:20 atorvastatin [From Lipitor] Allergy Other Verified 03/06/21 11:20 clavulanic acid Allergy Rash Verified 03/06/21 11:20 [From Augmentin] gabapentin Allergy Nausea Verified 03/06/21 11:20 lisinopril Allergy PT UNSURE Verified 03/06/21 11:20 OF REACTION mold Allergy PT UNSURE Verified 03/06/21 11:20 OF REACTION pollen extracts Allergy PT UNSURE Verified 03/06/21 11:20 OF REACTION quinapril [From Accupril] Allergy Rash Verified 03/06/21 11:20 ragweed pollen Allergy PT UNSURE Verified 03/06/21 11:20 OF REACTION simvastatin [From Zocor] Allergy PT UNSURE Verified 03/06/21 11:20 OF REACTION tramadol Allergy PT UNSURE Verified 03/06/21 11:20 OF REACTION tuberculin, purified protein Allergy PT UNSURE Verified 03/06/21 11:20 deriva OF REACTION fluoxetine AdvReac Other Verified 03/06/21 11:20 Family History Mother Tuberculosis Father Heart disease CVA (cerebral vascular accident) Sister Multiple sclerosis Brother Heart disease Surgical History (Updated 03/06/21 @ 16:59 by Aleena Richardson) History of appendectomy History of lumpectomy of right breast History of partial hysterectomy History of right-sided carotid endarterectomy Hx of bladder repair surgery Hx of tonsillectomy Social History Smoking Status: Current every day smoker tobacco type: cigarettes Tobacco: How many years used: 53 second hand exposure: Yes alcohol intake: never substance use type: does not use caffeine: Yes what type of physical activity do you participate in: none frequency: does not exercise ROS Constitutional Constitutional: Denies anorexia, chills, fatigue or fever(s) Eyes Eyes: Denies blurry vision, change in vision, double vision or eye pain ENT HEENT: Denies ear discharge, ear pain, headache(s), post nasal drip or sore throat Cardiovascular Cardiovascular: Denies chest pain, dyspnea on exertion, lightheadedness or palpitations Respiratory/Chest Respiratory/Chest: Denies cough, dyspnea, hemoptysis or productive cough Gastrointestinal Gastrointestinal: Denies abdominal pain, constipation, diarrhea, nausea or vomiting Genitourinary Genitourinary: Denies burning urination, hematuria or urinary hesitancy Musculoskeletal Musculoskeletal: Reports back pain; Denies arthralgias, joint pain, joint swelling or myalgias Neurologic Neurologic: Denies dizziness, focal weakness, headache(s), numbness, tremor(s) or vertigo Psychiatric Psychiatric: Denies anxiety, depression, hallucinations, homicidal ideation or suicidal ideation Endocrine Endocrinology: Denies change in body appearance, cold intolerance or heat intolerance Hematologic/Lymphatic Hematologic/Lymphatic: Denies easy bleeding, easy bruising or lymphadenopathy Allergic/Immunologic Allergic/Immunologic: Denies itchy eyes, rhinitis, throat swelling, tongue swelling, hives, urticaria or wheezing Vital Signs Vital Signs Vital Signs: 03/06/21 11:09 03/06/21 11:15 03/06/21 11:20 Temperature 98 F 98 F 98 F Temperature Source Temporal Temporal Temporal Pulse Rate 108 H 108 H 95 Respiratory Rate 20 H 20 H 18 Blood Pressure 100/74 100/74 117/70 Blood Pressure Mean 82 82 85 Pulse Ox 92 92 96 Oxygen Delivery Method Room Air Room Air Room Air 03/06/21 11:32 03/06/21 12:20 03/06/21 13:00 Temperature 98 F 98 F Temperature Source Temporal Temporal Pulse Rate 100 100 100 Respiratory Rate 18 18 18 Blood Pressure 117/70 120/68 96/58 L Blood Pressure Mean 85 85 70 Pulse Ox 95 96 96 Oxygen Delivery Method Room Air Room Air Room Air 03/06/21 14:00 03/06/21 14:15 03/06/21 15:53 Temperature 98 F 98 F 98.0 F Temperature Source Temporal Temporal Temporal Pulse Rate 110 H 105 H 107 H Respiratory Rate 20 H 18 18 Blood Pressure 108/75 118/64 99/52 L Blood Pressure Mean 86 82 67 Pulse Ox 96 96 91 Oxygen Delivery Method Room Air Room Air Room Air 03/06/21 15:59 Temperature 98.0 F Temperature Source Temporal Pulse Rate Respiratory Rate Blood Pressure Blood Pressure Mean Pulse Ox Oxygen Delivery Method Weight Weight: 120 lb Body Mass Index (BMI) 20.0 Physical Exam Const alert, no apparent distress and no limitations General Appearance: cooperative HEENT normocephalic, head/scalp atraumatic, external ears normal, external nose normal and moist oral mucous membranes Eyes PERRL, EOMs intact bilaterally, conjunctivae normal and no scleral icterus General Eye: normal appearance of both eyes Neck no lymphadenopathy, supple, no meningeal signs, no JVD and no carotid bruits Lymph Lymphatic: no lymphadenopathy noted Resp normal respiratory effort, normal air movement and clear to auscultation bilaterally Auscultation: Negative for crackles, rales, rhonchi or wheezes Cardio S1 normal heart sound, S2 normal heart sound, no murmurs and no JVD Cardio Narrative: Irregular rate and rhythm. GI normal to inspection, nondistended, normoactive bowel sounds, soft to palpation, non-tender and non-distended; Negative for hepatosplenomegaly GI Narrative: Colostomy bag in place. Extremity normal to inspection and full ROM Extremity Narrative: Trace edema, no clubbing or cyanosis. Skin no rashes or lesions noted and no petechiae Skin Narrative: Stage IV decubitus ulcer/left gluteal ulcer, serous drainage. Neuro CN's II-XII intact bilaterally and moves all extremities Sensorium / Orientation: alert Speech: speech normal Motor Exam: strength 5/5 throughout Psych mental status grossly normal Psych Narrative: Flat affect. Results Lab / Micro Data Result Diagrams: 03/06/21 11:35 03/06/21 11:35 Labs: Laboratory Results - last 24 hr 03/06/21 03/06/21 03/06/21 11:35 11:35 11:35 WBC 10.3 RBC 3.80 L Hgb 10.4 L Hct 33.4 L MCV 87.9 MCH 27.4 MCHC 31.1 L RDW Std Deviation 50.3 H RDW Coeff of Mirza 15.6 H Plt Count 793 H* MPV 9.5 Immature Gran % (Auto) 1.400 H Neut % (Auto) 74.4 H Lymph % (Auto) 16.0 L [place] % (Auto) 6.1 Eos % (Auto) 1.4 Baso % (Auto) 0.7 Absolute Neuts (auto) 7.6 Absolute Lymphs (auto) 1.64 Nucleated RBC % 0 Differential Comment COMMENT Diff Path Review May foll PT INR APTT Sodium 135 L Potassium 4.5 Chloride 98 Carbon Dioxide 30.0 Anion Gap 7 BUN 12 Creatinine 0.41 L Estim Creat Clear Calc 44.34 Est GFR (MDRD) Af Amer 195 Est GFR (MDRD) Non-Af 161 BUN/Creatinine Ratio 29.1 H Glucose 97 Lactic Acid 2.0 Calcium 9.4 Urine Color Urine Clarity Urine pH Ur Specific [place] Urine Protein Urine Glucose (UA) Urine Ketones Urine Occult Blood Urine Nitrite Urine Bilirubin Urine Urobilinogen Ur Leukocyte Esterase Urine RBC Urine WBC Ur Squamous Epith Cells Urine Bacteria Urine Mucus 03/06/21 03/06/21 14:20 14:40 WBC RBC Hgb Hct MCV MCH MCHC RDW Std Deviation RDW Coeff of Mirza Plt Count MPV Immature Gran % (Auto) Neut % (Auto) Lymph % (Auto) [place] % (Auto) Eos % (Auto) Baso % (Auto) Absolute Neuts (auto) Absolute Lymphs (auto) Nucleated RBC % Differential Comment Diff Path Review PT 13.2 INR 1.1 APTT 28.4 Sodium Potassium Chloride Carbon Dioxide Anion Gap BUN Creatinine Estim Creat Clear Calc Est GFR (MDRD) Af Amer Est GFR (MDRD) Non-Af BUN/Creatinine Ratio Glucose Lactic Acid Calcium Urine Color Yellow Urine Clarity Sl. Cloudy Urine pH 8.0 Ur Specific [place] 1.010 Urine Protein 15 H Urine Glucose (UA) Normal Urine Ketones Negative Urine Occult Blood 25 H Urine Nitrite Positive H Urine Bilirubin Negative Urine Urobilinogen Normal Ur Leukocyte Esterase 500 H Urine RBC 0-5 SEEN Urine WBC 50-100 SEEN Ur Squamous Epith Cells 0 SEEN Urine Bacteria 4+ Urine Mucus 0 SEEN Radiology Impression Chest X-Ray 03/06/21 14:58 IMPRESSION: No airspace consolidation or pleural effusion. Electronically Signed: Shruthi Mosquera, at 15:41 EDT Tel , Service support , Assessment & Plan Assessment/Plan (1) Acute cystitis: (2) Pressure ulcer of sacral region, stage 4: (3) COPD (chronic obstructive pulmonary disease): QUALIFIERS: COPD type: unspecified COPD Qualified Code(s): J44.9 - Chronic obstructive pulmonary disease, unspecified (4) Chronic respiratory failure with hypoxia: (5) Type II diabetes mellitus: (6) Atrial fibrillation: (7) HTN (hypertension): QUALIFIERS: Hypertension type: essential hypertension Qualified Code(s): I10 - Essential (primary) hypertension PLAN: This is a 70 years old female patient was referred to the ED by her home health nurse because of increasing drainage from the sacral decubitus ulcer, found to have acute cystitis in addition to probably infected chronic nonhealing stage IV decubitus sacral ulcer with history of osteomyelitis. #1 acute cystitis: Admit to MedSurg floor, telemetry monitoring, IV fluids, urine culture, blood culture, start IV Rocephin, Tylenol as needed, Zofran as needed, repeat CBC and BMP to morning, PT OT evaluation and treatment. #2 chronic stage IV sacral decubitus ulcer/with history of osteomyelitis: With possible acute infection. Large chronic ulcer, serous drainage. Plan: Wound culture, start empiric IV vancomycin in addition to IV Rocephin, MRSA wound screen by DNA, consult wound care nurse. #3 COPD/chronic respiratory failure: Currently, she is on room air. Plan for albuterol as needed, oxygen by nasal cannula to keep O2 saturation around 92%. #4 type 2 diabetes mellitus: ADA diet, Accu-Cheks, insulin sliding scale, resume home medication on home medication list updated. #5 chronic atrial fibrillation: Heart rate stable, she is not on any medication for rate control or anticoagulation. #6 hypertension: Blood pressure is borderline but stable. Continue home medications when home list updated. #7 DVT prophylaxis: Subcu Lovenox. This note was generated with [employer] software. It may contain incorrect words, spelling, and punctuation that were not noted in checking the note before signing. Charges/Coding Visit Charges Inpatient E&M: 71885 Init Hosp L2
--- NOTE | 2021-03-06 20:06 | PCM.RX.CS ---
Consult Pharmacy has been consulted to manage selected antiobiotic: Vancomycin Type of Consult: New start Suspected Infection: Skin/Soft tissue, Other Labs: Sodium 135 mmol/L (136-145) L 03/06/21 11:35 Potassium 4.5 mmol/L (3.5-5.1) 03/06/21 11:35 Chloride 98 mmol/L (98-107) 03/06/21 11:35 Carbon Dioxide 30.0 mmol/L (21.0-32.0) 03/06/21 11:35 Anion Gap 7 (5-15) 03/06/21 11:35 BUN 12 mg/dL (7-18) 03/06/21 11:35 Creatinine 0.41 mg/dL (0.55-1.02) L 03/06/21 11:35 Est GFR (MDRD) Af Amer 195 mL/min (>60) 03/06/21 11:35 Est GFR (MDRD) Non-Af 161 mL/min (>60) 03/06/21 11:35 BUN/Creatinine Ratio 29.1 RATIO (10-20) H 03/06/21 11:35 Glucose 97 mg/dL (74-106) 03/06/21 11:35 Goal Trough: 15-20 mcg/mL Pharmacy Plan for Drug Dosing: NEW START IV VANCOMYCIN Consulting Physician: Dr. Maxwell Indication: decubitus ulcer/cystitis Goal Trough: 15-20 SrCr: 0.41 CrCl: 44 mL/min Comments: 1250mg IV x1 in ED 03/06/21 @1551 Vancomcyin Dose: 1000mg IV Q24hr to start 03/07/21 @1600 Pending Level: 03/08/21 @1530, prior to 4th total dose per protocol Pharmacy Service will continue to monitor and adjust dosing as required.
[2021-03-06 22:02] LABS: M R Staph aureus DNA By PCR Negative (Negative); Probe Check PASS; Specimen Processing Control PASS; Staph aureus DNA By PCR NEGATIVE (Negative)
[2021-03-06] MEDS: Rosuvastatin Calcium 5 MG Tablet PO (22:47)
[2021-03-06] MEDS: Acetaminophen 325 MG Tablet 650 MG PO (23:23)
[2021-03-07] VITALS (9 sets, daily range): BP systolic 103–128; BP diastolic 60–74; PULSE 95–108; RESP 17–18; TEMP 36.8–37.1; O2SAT 95–96; BMI 21.0
[2021-03-07 03:31] LABS: Bedside Glucose 114 mg/dL (70-110)
--- NOTE | 2021-03-07 03:45 | NURSING ---
This RN went into patients room to check VS and fix tele leads. Patient noted as being very clammy at this time, unable to verbally arouse yet patient is extremely KAL[place]. wire stretcher came into room during this time. Patient RN checked patient BG- 114 while full charge bookkeeper tried to awaken patient. wire stretcher sternal rubbed patient. Finally patient awakened and immediately pulled her arm away and said leave me alone. This RN attempted to explain to patient why we were in her room I just want to go to sleep, leave me alone. During this time patient was refusing VS checks. Patient continued to argue with staff and at times use profanity at staff. Finally patient allowed this RN to check VS and drank OJ offered by wire stretcher.
[2021-03-07 06:04] LABS: Absolute Lymphocyte Count 1.49 X10^3/uL (0.83-4.51); Absolute Neutrophil Count 7.4 X10^3/uL (2.0-7.7); Basophil# 0.05 X10^3/uL; Basophil% 0.5 % (0-1); Hemoglobin 9.9 g/dL (12.0-15.0); Lymphocyte # 1.49 X10^3/ul (0.83-4.51); Lymphocyte % 14.9 % (19-41); Mean Corp Hgb Conc 30.9 g/dL (32-36); Mean Corpuscular Hgb 27.2 pg (27.0-32.0); Mean Corpuscular Volume 87.9 fL (81-99); Mean Platelet Vol. 9.5 fl (6.2-12.0); Monocyte# 0.82 X10^3/uL; Monocyte% 8.2 % (0-10); NRBC Flagged by Analyzer 0 % (0-5); Neutrophil # 7.43 X10^3/uL (2.7-7.7); Neutrophil % 74.1 % (47-70); Platelet Count 730 K/mm3 (150-450); RBC Distribution Width CV 15.5 % (11.6-14.6); RBC Distribution Width SD 49.5 fl (35.1-43.9); Red Blood Count 3.64 M/mm3 (4.2-5.4)
[2021-03-07 06:28] LABS: Anion Gap 5 (5-15); BUN 8 mg/dL (7-18); Calcium,Total 9.2 mg/dL (8.5-10.1); Chloride 101 mmol/L (98-107); Creatinine, Serum 0.33 mg/dL (0.55-1.02); EST Glomerular Filtration Rate 205 mL/min (>60); Est Glom Filt Rate - Afr Amer 249 mL/min (>60); Estimated Creatinine Clearance 46.43 ml/min; Glucose 91 mg/dL (74-106); Sodium Level 135 mmol/L (136-145)
[2021-03-07] MEDS: Acetaminophen 325 MG Tablet 650 MG PO ×3 (07:20→20:29)
[2021-03-07] MEDS: metFORMIN (XR) 500 MG Tablet PO ×2 (09:19→17:10)
[2021-03-07] MEDS: Enoxaparin 40 MG/0.4 ML Syringe SC (09:19)
[2021-03-07] MEDS: Aspirin 81 MG TAB.CHEW PO (09:19)
[2021-03-07] MEDS: Ciprofloxacin 400 MG/200 ML BAG 200 MG IV ×2 (09:19→21:02)
[2021-03-07] MEDS: DAKIN'S SOL HALF STRENGTH (=0.25%) 1 APPLIC TOPICAL (09:20)
[2021-03-07] MEDS: Glucerna Shake 120 ML LIQUID PO ×2 (09:26→14:02)
[2021-03-07] MEDS: 0.9% Saline Lock 10 ML Syringe IV ×3 (09:26→21:01)
--- NOTE | 2021-03-07 10:00 | NURSING ---
wound photo: sacrum
--- NOTE | 2021-03-07 10:01 | NURSING ---
Addendum entered by Kimberly Desouza 03/07/21 10:35: left heel Original Note: wound photo: right heel
--- NOTE | 2021-03-07 10:18 | CASEMGMT ---
Addendum entered by Yaneth Muniz 03/07/21 12:06: Pt dtr called in as she states her called stating this CM stated was not able to take care of pt at home. Discussed with dtr this was a concern of [facility], but since this was communicated, they are aware that pt wants to go back home and are willing to continue care. She states that she has been trained to complete dressing changes for pt when [facility] nurse is not visiting. Chloé is able to perform colostomy care as well. Pt has aides 3 hours/day x 7 days a week. Chloé states pt has the [employer] system on a smaller scale at home for patient. She states pt receives better care than a SNF. Chloé states that she wants what is best for pt. Reassured her that the current plan is for pt to return home with resumption of [facility] services. She denies further questions or concerns at this time. Addendum entered by Yaneth Muniz 03/07/21 11:42: TC back to [facility] and spoke with noemi Leungison who is unable to confirm all disciplines for pt d/t technical difficulties. He states they will be able to accept pt back that there was concerns that pt needs to go to a SNF. Made aware that pt was adamant that she would not be willing to go anywhere except home. Faxed order, H&P and face sheet at this time. Original Note: SCOOBY HERRING Assessment: Face to Face with pt for initial transition planning/care coordination assessment. SCOOBY HERRING introduced self and role at [facility], pt voices understanding and consents to assessment. Pt is A/O, but very hard of hearing. Asked pt if she would like this CM to call her dtr who is her POA. Pt states she does not, she would like her called. Discussed with pt concerns by [facility] provider that her is unable to take care of her at home. She states Yes he can and I am not [facility] any [facility]! TC to pt , rest of assessment completed via tc with him. Care providers, pharmacy, and demographics verified/updated. Admitting Dx: acute cystitis, Stage IV decub ulcer PCP:Ad Specialists: Denies. Preferred Pharmacy: [facility] Prescription Benefit: yes LW/HPOA: Pt has LW/DPOA that is on file at [facility]. Pt dtr Chloé Jaramillo is DPOA. LNOK: Chloé Jaramillo, dtr, and pt Living Arrangements: Pt lives with in a single story apartment with no steps to enter. Pt needs assistance from and aides for ADL's. denies concerns at home. He states that he follows doctor's orders and is quite able stating wound care is completed, pt is fed, etc. Transportation: Pt receives transportation through insurance per . He cannot provide any further detail with this. DME/HHC/SNF: Pt has a hospital bed, w/c, walker, tub bench, nebulizers and O2 as needed through [facility]. Pt is current with [facility] and previously has had [facility]. Pt has been in [facility] and [facility]. Charge Nurse Jodi notified SCOOBY HERRING that [facility] called with concerns of pt not being able to care for pt at home. No name or phone number of person given. SCOOBY HERRING called back [facility] and reached a gentleman who states he is unable to bring up the person who called due to technical difficulties. Will call back at a later time. Pt states no concerns with going home at time of dc. Pt states no further concerns/needs. CM to follow. Advised pt to ask CM if any further question/concerns/needs arise, voices understanding. [facility]
--- NOTE | 2021-03-07 10:59 | CASEMGMT ---
Social Work Note SW received chart, pt has [facility] ([phone]). SW placed a call to Surekha and updated her on pt's admissions to [facility]. Surekha states pt has been home from [facility] for 2-3 weeks, has nurses coming to the home and aide services. Pt has [facility]. SW to continue to follow. Jennifer Newman MIND READER, DO ALL OPERATOR
--- NOTE | 2021-03-07 12:16 | PCM.PN.HOSP ---
Subjective Subjective Hard of hearing, states that she feels better she wants to go home. No issues overnight. Objective Data Objective Data Vital Signs: Vital Signs Temp Pulse Resp BP Pulse Ox 98.7 F 96 18 128/74 H 95 03/07/21 03:15 03/07/21 03:15 03/07/21 03:15 03/07/21 03:15 03/07/21 06:48 Oxygen Delivery Method Room Air Weight: 126 lb 7.985 oz Body Mass Index (BMI) 21.0 Intake & Output: Intake and Output for Last 24 Hours 03/06/21 03/07/21 03/08/21 03:59 03:59 03:59 Intake Total 1168.33 / 1168.33 Output Total 450 / 450 700 / 700 Balance 718.33 / 718.33 -700 / -700 Lab / Micro Data Result Diagrams: 03/07/21 05:40 03/07/21 05:40 Labs: Laboratory Results - last 24 hr 03/06/21 03/06/21 03/06/21 11:35 11:35 11:35 WBC RBC Hgb Hct MCV MCH MCHC RDW Std Deviation RDW Coeff of Mirza Plt Count MPV Immature Gran % (Auto) Neut % (Auto) Lymph % (Auto) Pine % (Auto) Eos % (Auto) Baso % (Auto) Absolute Neuts (auto) Absolute Lymphs (auto) Nucleated RBC % Differential Comment COMMENT Diff Path Review May foll PT INR APTT Sodium 135 L Potassium 4.5 Chloride 98 Carbon Dioxide 30.0 Anion Gap 7 BUN 12 Creatinine 0.41 L Estim Creat Clear Calc 44.34 Est GFR (MDRD) Af Amer 195 Est GFR (MDRD) Non-Af 161 BUN/Creatinine Ratio 29.1 H Glucose 97 Lactic Acid 2.0 Calcium 9.4 Urine Color Urine Clarity Urine pH Ur Specific Fe [employer] Urine Protein Urine Glucose (UA) Urine Ketones Urine Occult Blood Urine Nitrite Urine Bilirubin Urine Urobilinogen Ur Leukocyte Esterase Urine RBC Urine WBC Ur Squamous Epith Cells Urine Bacteria Urine Mucus S.aureus Protein A PCR MRSA (PCR) POC Glucose 03/06/21 03/06/21 03/06/21 12:38 14:20 14:40 WBC RBC Hgb Hct MCV MCH MCHC RDW Std Deviation RDW Coeff of Mirza Plt Count MPV Immature Gran % (Auto) Neut % (Auto) Lymph % (Auto) Pine % (Auto) Eos % (Auto) Baso % (Auto) Absolute Neuts (auto) Absolute Lymphs (auto) Nucleated RBC % Differential Comment Diff Path Review PT 13.2 INR 1.1 APTT 28.4 Sodium Potassium Chloride Carbon Dioxide Anion Gap BUN Creatinine Estim Creat Clear Calc Est GFR (MDRD) Af Amer Est GFR (MDRD) Non-Af BUN/Creatinine Ratio Glucose Lactic Acid Calcium Urine Color Yellow Urine Clarity Sl. Cloudy Urine pH 8.0 Ur Specific Fe [employer] 1.010 Urine Protein 15 H Urine Glucose (UA) Normal Urine Ketones Negative Urine Occult Blood 25 H Urine Nitrite Positive H Urine Bilirubin Negative Urine Urobilinogen Normal Ur Leukocyte Esterase 500 H Urine RBC 0-5 SEEN Urine WBC 50-100 SEEN Ur Squamous Epith Cells 0 SEEN Urine Bacteria 4+ Urine Mucus 0 SEEN S.aureus Protein A PCR NEGATIVE MRSA (PCR) Negative POC Glucose 03/07/21 03/07/21 03/07/21 03:08 05:40 05:40 WBC 10.0 RBC 3.64 L Hgb 9.9 L Hct 32.0 L MCV 87.9 MCH 27.2 MCHC 30.9 L RDW Std Deviation 49.5 H RDW Coeff of Mirza 15.5 H Plt Count 730 H MPV 9.5 Immature Gran % (Auto) 0.300 Neut % (Auto) 74.1 H Lymph % (Auto) 14.9 L Pine % (Auto) 8.2 Eos % (Auto) 2.0 Baso % (Auto) 0.5 Absolute Neuts (auto) 7.4 Absolute Lymphs (auto) 1.49 Nucleated RBC % 0 Differential Comment Diff Path Review PT INR APTT Sodium 135 L Potassium 4.0 Chloride 101 Carbon Dioxide 29.0 Anion Gap 5 BUN 8 Creatinine 0.33 L Estim Creat Clear Calc 46.43 Est GFR (MDRD) Af Amer 249 Est GFR (MDRD) Non-Af 205 BUN/Creatinine Ratio 24.0 H Glucose 91 Lactic Acid Calcium 9.2 Urine Color Urine Clarity Urine pH Ur Specific Fe [employer] Urine Protein Urine Glucose (UA) Urine Ketones Urine Occult Blood Urine Nitrite Urine Bilirubin Urine Urobilinogen Ur Leukocyte Esterase Urine RBC Urine WBC Ur Squamous Epith Cells Urine Bacteria Urine Mucus S.aureus Protein A PCR MRSA (PCR) POC Glucose 114 H Micro: Microbiology 03/06/21 12:38 Ulcer, Decubitus - Buttock Gram Stain - Final Radiography Diagnostic Testing: Radiology Impression Chest X-Ray 03/06/21 14:58 IMPRESSION: No airspace consolidation or pleural effusion. Electronically Signed: Shruthi Mosquera, at 15:41 EDT Tel , Service support , Physical Exam Const alert, oriented x3 and no apparent distress HEENT moist oral mucous membranes Head and Scalp: normocephalic Eyes PERRL, EOMs intact bilaterally and conjunctivae normal Neck supple and no JVD Resp normal respiratory effort, no retractions, no use of accessory muscles and clear to auscultation bilaterally Auscultation: Negative for crackles, rales, rhonchi or wheezes Cardio regular rate, regular rhythm, S1 normal heart sound, S2 normal heart sound and no murmurs GI soft to palpation, non-tender and non-distended; Negative for hepatosplenomegaly Extremity General Extremity: edema bilateral lower extremity Details: trace; Negative for clubbing or cyanosis Skin Wounds: wounds noted size Size: 7x14 cm, bed yellow and with undermining, margins, malodorous and No surrounding erythema Neuro no focal motor deficits and no sensory deficits noted Psych affect normal Appearance: appropriate Assessment & Plan Assessment/Plan (1) Acute cystitis: QUALIFIERS: Hematuria presence: with hematuria Qualified Code(s): N30.01 - Acute cystitis with hematuria (2) Pressure ulcer of sacral region, stage 4: (3) Type II diabetes mellitus: PLAN: 1. Acute UTI -UA was dirty on admission -Started on Rocephin and vancomycin secondary to the sacral wound however transitioned to Cipro and Vanco today to cover her previous urine cultures 2. Chronic stage IV sacral decubitus ulcer with a history of osteomyelitis -We will consult plastic surgery for evaluation and further debridement -Wound care nursing noticed a malodorous smell with a did the dressing changed today, hopefully will get coverage with Cipro and will obtain a wound culture as well -She does have palliative care at home and family does not want to send her to a intermediate. 3. History of COPD with chronic respiratory failure -Not in exacerbation -Continue with her home inhalers and oxygen as needed 4. DM2 -We will hold any oral medications, continue with sliding scale insulin -Accu-Cheks AC at bedtime 5. Chronic A. fib/HTN/HLD -Blood pressure stable -Not on anticoagulation -Continue with her home blood pressure medications -Continue with statin DVT: Lovenox Charges/Coding Visit Charges Inpatient E&M: 84044 Subs Hosp L2
[2021-03-07 12:30] LABS: Pathologist Review Reviewed
--- NOTE | 2021-03-07 12:30 | CASEMGMT ---
Pt screened with [facility] Palliative Care Screening Tool due to Strata 3, pt did not meet criteria.
--- NOTE | 2021-03-07 13:44 | NT.THERAPY_ITS ---
Medical Nutrition Therapy - History Nutrition Services has been consulted to:: Manage nutrient details of diet order Current diet/nutrition support order:: Regular-general diet. Regular food consistency. Regular/thin liquid consistency. Glucerna 120mL PO 4x/day at [facility] - Anthropometric Measurements Height:: 5 ft 5 in Weight:: 57.379 kg Body Mass Index (BMI):: 21.0 - Relevant Labs Relevant Labs:: RBC 3.64 M/mm3 (4.2-5.4) L 03/07/21 05:40 Hgb 9.9 g/dL (12.0-15.0) L 03/07/21 05:40 Hct 32.0 % (37-47) L 03/07/21 05:40 MCHC 30.9 g/dL (32-36) L 03/07/21 05:40 RDW Std Deviation 49.5 fl (35.1-43.9) H 03/07/21 05:40 RDW Coeff of Mirza 15.5 % (11.6-14.6) H 03/07/21 05:40 Plt Count 730 K/mm3 (150-450) H 03/07/21 05:40 Immature Gran % (Auto) 1.400 % (0.0-0.9) H 03/06/21 11:35 Neut % (Auto) 74.1 % (47-70) H 03/07/21 05:40 Lymph % (Auto) 14.9 % (19-41) L 03/07/21 05:40 Sodium 135 mmol/L (136-145) L 03/07/21 05:40 Creatinine 0.33 mg/dL (0.55-1.02) L 03/07/21 05:40 BUN/Creatinine Ratio 24.0 RATIO (10-20) H 03/07/21 05:40 - Assessment Food and Nutrient Intake: Seen in conjuction w/ Lani. Deloris, research program internship. Pt appears to be [place] and wasn't able to have a conversation. Wrote down my questi ons on a piece of paper and pt was able to read them and respond. Pt stats that her appetite is intake fair. Pt was agreeable to trying Romie to help with wound repair. Per EMR pt's weight on 01/24/21 was 164# and pt's CBW is 126.5# representing weight loss of 37.5#/23% weight loss in 42 days-significant for malnutrition. Also noted, pt was 205.26# on 11/13/20 suggesting a 78.5#/38% wt loss x 3 months, which is also significant for malnutrition. Reports of physical findings: severe muscle and fat wasting of clavicle region and thigh/patellar region. - Nutrition Diagnosis: Intake Problem Increased Nutrient Needs (specify) Intake Problem - Etiology: (protein) r/t wounds Intake Problem - Signs/Symptoms: as evidenced by left heel and sacrum stage 4 pressure injuries. Status: Active Problem - Nutrition Diagnosis: Clinical Problem Chronic Disease or Condition Related Malnutrition Clinical Problem - Etiology: severe malnutrition r/t inadequate oral intake w/ increased nutrient needs d/t wounds Clinical Problem - Signs/Symptoms: as evidenced by pt report of decrease in appetite, estimated energy intake meeting </= 75% of energy requirements, wt loss of 37.5#/23% in 42 days and a 78.5#/38% wt loss x 3 months per EMR, and physical findings of severe muscle and fat wasting of clavicle region and thigh/patellar region. Status: Active Problem - Protein Calorie Malnutrition Evidence of Malnutrition Exists: Yes Severe Protein Calorie Malnutrition:: Chronic - Nutrition Intervention Nutrition Prescription: 1,500-1,600kcal/day (RMR x 1.3). Protein 68-85 g/day (1.2-1.5g/kg). Fluid 1,700-1,800mL/day (30mL/kg) - Food / Nutrient Delivery Interventions Summary of nutrition intervention:: Provide oral nutrition supplement Nutrition support ordered as / adjusted to:: Continue regular-general diet. Continue glucerna 120mL PO 4x/day at [facility] Add 1 pkt Romie BID at breakfast and lunch. Add magic cup BID at lunch and dinner. - MNT Monitoring Active Nutrition Patient: Yes Nutrition Status: Requires Follow Up 3-5 Days
[2021-03-07] MEDS: Losartan Potassium 100 MG Tablet PO (13:59)
[2021-03-07] MEDS: amLODIPine 10 MG Tablet PO (13:59)
[2021-03-07] MEDS: hydroCHLOROthiazide 12.5mg 12.5 MG PO (14:00)
[2021-03-07] MEDS: Vancomycin IV 1,000 MG/200 ML BAG 200 MG IV (17:04)
[2021-03-07] MEDS: Rosuvastatin Calcium 5 MG Tablet PO (20:30)
--- NOTE | 2021-03-07 22:40 | CON.PCM_ITS ---
Assessment & Plan Assessment/Plan (1) Pressure ulcer of sacral region, stage 4: (2) Skin necrosis: (3) Osteomyelitis of pelvic region: (4) Type II diabetes mellitus: (5) History of MRSA infection: (6) Smoker: PLAN: CONTINUE SPECIALTY BED, LOW AIR LOSS. CONTINUE IV ANTIBIOTICS WITH VANCOMYCIN AND ROCEPHIN. INITIAL WOUND CULTURE SHOWED GNR POSSIBLE PSEUDOMONAS. CIPRO WILL BE ADDED. CONTINUE DAKIN'S DRESSING CHANGES TO THE NECROTIC SACRAL PRESSURE SORE. THE SACRAL PRESSURE SORE HAS SOME UNDERMINING WITH DRAINAGE AND TENDERNESS AND WORSENING NECROSIS LATERALLY. RECOMMEND TO THE PATIENT TO PROCEED WITH FURTHER EXCISION OF THE NECROTIC SACRAL PRESSURE SORE ALONG WITH PARTIAL OSTECTOMY FOR OSTEOMYELITIS. SOFT TISSUE AND BONE WILL BE SENT TO PATHOLOGY FOR ANALYSIS TO EVALUATE FOR OSTEOMYELITIS. SOFT TISSUE AND BONE WILL BE SENT TO MICROBIOLOGY FOR CULTURE. A POSITIVE CULTURE WILL NECESSITATE ANTIBIOTIC THERAPY. AFTER SURGERY WILL CHANGE WOUND CARE TO THE VAC TO BE CHANGED THREE TIMES PER WEEK AT 150 MMHG CONTINUOUS SUCTION. ANTICIPATE INCREASED METABOLIC DEMANDS FROM THE INFECTION. WILL CHECK A PREA LBUMIN AND ENCOURAGE NUTRITIONAL SUPPLEMENTATION WITH PROTEIN TO HELP THE HEALING PROCESS. I HAVE CONCERNS ABOUT THE PATIENT RETURNING HOME AFTER THE SURGERY BECAUSE OF THE RAPIDITY IN THE WORSENING OF THIS PRESSURE SORE. THEY HAVE PALLIATIVE CARE AT THE PRESENT TIME. STRONG CONSIDERATION SHOULD BE GIVEN FOR HOSPICE CARE. THE PRESSURE SORE IS QUITE LARGE AND HEALING WILL NOT OCCUR BECAUSE OF THE INCREASED METABOLIC DEMANDS DUE TO THE LARGE SIZE OF THE PRESSURE SORE. ANY CHANCE OF HEALING WILL NECESSITATE A FEEDING TUBE TO MAXIMIZE NUTRITION. THE PATIENT IS NOT INTERESTED IN A FEEDING TUBE. I WILL BE OUT OF TOWN FOR THE NEXT COUPLE OF DAYS. WILL PROCEED WITH THE SURGERY ON THURSDAY UNDER GENERAL ANESTHESIA. AFTER DISCHARGE, CAN FOLLOWUP AT THE WOUND CENTER. Patient was informed of the risks and complications of the procedure including alternatives to surgery. These were discussed with the patient personally. Patient voices understanding and wishes to proceed. Encouraged patient to stop smoking as it may have deleterious effects on wound healing. We discussed the current risks associated with COVID-19. While it is understood that there is a community spread of COVID-19, the risk of corey COVID-19 while at [facility] ([facility]) is very low; however, the risk cannot be completely mitigated because of the community spread of the disease. We discussed in detail the risk of exposure to and/or potential harm posed by the COVID-19 virus with having a surgery/procedure at this time versus the risk of delaying the surgery/procedure. It is not possible to know either the risk of delaying the surgery or procedure or chance of getting an infection with perfect accuracy, but a joint decision was made to proceed at this time with the scheduled surgery/procedure as indicated on the consent form. Patient was notified that we will need to comply with any screening or testing WC wishes to perform or that surgery may be delayed for any positive results. Discussed with the patient that I was tested for COVID-19 on 03/15/20 which was negative and on 03/29/20 which was negative and on 04/12/20 which was negative and on 04/26/20 which was negative and on 05/10/20 which was negative and on 05/31/20 which was negative and on 06/21/20 which was negative and on 07/26/20 which was negative and on 08/16/20 which was negative and on 09/04/20 which was negative. ? My testing regimen at this time is to be COVID-19 tested every 2 weeks or so.? I received the COVID-19 vaccine (Moderna) on 09/12/20 and the second vaccine dose was received on 10/10/20.? When I was hospitalized on 11/12/20 I was tested for COVID-19 which was negative.? I was also? tested for COVID-19 on 11/27/20 which was negative and on 12/24/20 which was negative. HPI Consult Data Date of Consult: 03/10/21 PCP / Referring MD: Dr. Ifeanyi Duong MD Attending Care Provider: Dr. Kingston Leon MD SCOREKEEPER: Dr. Aguirre. HPI Narrative Reason for Consultation: Worsening sacral pressure sore, Stage IV, with necrosis. HPI Narrative: 70 YEAR OLD WOMAN WAS ADMITTED FOR ACUTE CYSTITIS AND WORSENING OF HER SACRAL PRESSURE SORE, STAGE IV. SHE HAD UNDERGONE AN EXCISION OF THE SACRAL PRESSURE SORE BACK IN October,. SHE ALSO HAD OSTEOMYELITIS. SHE WAS TREATED WITH ANTIBIOTICS AND WOUND CARE. THERE WERE ISSUES WITH STOOL CONTAMINATION AND A DIVERTING COLOSTOMY WAS DONE. SHE HAD BEEN AT THE [facility] AND WAS RECENTLY DISCHARGED HOME ABOUT 3 WEEKS AGO. SINCE THEN THERE WAS INCREASING DRAINAGE AND ODOR COMING FROM THE SACRAL PRESSURE SORE WELL WORSENING NECROSIS. SHE WAS STARTED ON VANCOMYCIN AND ROCEPHIN. WBC WAS 10.0. DAKIN'S DRESSING CHANGES WERE STARTED. I WAS ASKED TO EVALUATE THIS PATIENT FOR SURGICAL OPTIONS FOR TREATMENT. [facility] Medical History Atrial fibrillation CAD (coronary artery disease) Chronic indwelling [place] catheter Chronic neck pain Chronic ulcer of left heel with fat layer exposed Colostomy in place Decubitus ulcer of left heel, stage 4 Dementia Depression Dysphagia following cerebrovascular accident (CVA) GERD (gastroesophageal reflux disease) Gout History of MRSA infection History of pressure ulcer Intertrochanteric fracture of left hip Left humeral fracture Neurogenic bladder On home oxygen therapy Osteoporosis PAD (peripheral artery disease) Stroke/cerebrovascular accident Tobacco abuse Type II diabetes mellitus Vitamin D deficiency Home Medications hydrochlorothiazide 12.5 mg PO DAILY 06/16/18 [History Last Taken 02/11/19] losartan 100 mg PO DAILY 06/16/18 [History Last Taken 01/21/21] rosuvastatin 5 mg PO QHS 09/08/18 [History Last Taken 02/11/19] metformin 500 mg PO BID 04/30/20 [History Last Taken Unknown] aspirin 81 mg PO DAILY@0800 11/06/20 [History Last Taken Unknown] amlodipine 10 mg PO DAILY 01/18/21 [History Last Taken 01/21/21] sennosides-docusate sodium 2 tab-cap PO QHS PRN 01/18/21 [History Last Taken Unknown] oxycodone 5 mg PO Q4H PRN PRN 7 Days #15 tab 01/24/21 [Rx Last Taken 01/25/21 23:00] Allergy/AdvReac Type Severity Reaction Status Date / Time amoxicillin [From Augmentin] Allergy Rash Verified 03/06/21 11:20 atorvastatin [From Lipitor] Allergy Other Verified 03/06/21 11:20 clavulanic acid Allergy Rash Verified 03/06/21 11:20 [From Augmentin] gabapentin Allergy Nausea Verified 03/06/21 11:20 lisinopril Allergy PT UNSURE Verified 03/06/21 11:20 OF REACTION mold Allergy PT UNSURE Verified 03/06/21 11:20 OF REACTION pollen extracts Allergy PT UNSURE Verified 03/06/21 11:20 OF REACTION quinapril [From Accupril] Allergy Rash Verified 03/06/21 11:20 ragweed pollen Allergy PT UNSURE Verified 03/06/21 11:20 OF REACTION simvastatin [From Zocor] Allergy PT UNSURE Verified 03/06/21 11:20 OF REACTION tramadol Allergy PT UNSURE Verified 03/06/21 11:20 OF REACTION tuberculin, purified protein Allergy PT UNSURE Verified 03/06/21 11:20 deriva OF REACTION fluoxetine AdvReac Other Verified 03/06/21 11:20 Family History Mother Tuberculosis Father Heart disease CVA (cerebral vascular accident) Sister Multiple sclerosis Brother Heart disease Surgical History History of appendectomy History of lumpectomy of right breast History of partial hysterectomy History of right-sided carotid endarterectomy Hx of bladder repair surgery Hx of tonsillectomy Social History Smoking Status: Current every day smoker tobacco type: cigarettes Tobacco: How many years used: 53 second hand exposure: Yes alcohol intake: never substance use type: does not use caffeine: Yes what type of physical activity do you participate in: none frequency: does not exercise ROS ROS Narrative REVIEW OF SYSTEMS General - Denies fever, fatigue, and weight loss. Eyes - Denies cataracts and glaucoma. ENT - Denies nasal congestion and sore throat. Endocrine - Denies excessive thirst and urination. Skin - Denies suspicious lesions and skin cancer. Musculoskeletal - Denies joint pain, joint stiffness, weakness of muscles and joints, back pain, and arthritis. Neuro - Denies headaches. Cardiovascular - Denies chest pain, fatigue, and shortness of breath with exertion. Psych - Denies anxiety and depression. Respiratory - Denies chronic cough and shortness of breath. Gastrointestinal - Denies nausea, vomiting, diarrhea, and constipation. Hematologic - Denies abnormal bruising and bleeding. Genitourinary - Denies hematuria and urinary frequency. Physical Exam Narrative PHYSICAL EXAMINATION General - Alert and Oriented HEENT - PERRL. EOMI. Throat is clear. Neck - Supple and nontender. No cervical adenopathy. Lungs - Clear to auscultation. Heart - Regular rate and rhythm. Abdomen - Soft and nondistended. Extremities - FROM. No axillary adenopathy. Radial pulses are palpable. Lower back - There is a worsening sacral pressure sore with necrotic extension laterally. Some granulation tissue is present medially. Where the necrotic tissue is located, there is some undermining. There is tenderness to palpation. Some greenish drainage noted. Measures 15 X 8 cm. Neuro - CN II-XII grossly intact. Psych - Normal mood and affect. Lab / Micro Data Result Diagrams: 03/09/21 14:33 03/09/21 14:33 Labs: Laboratory Results - last 24 hr 03/06/21 03/07/21 03/07/21 11:35 03:08 05:40 WBC 10.0 RBC 3.64 L Hgb 9.9 L Hct 32.0 L MCV 87.9 MCH 27.2 MCHC 30.9 L RDW Std Deviation 49.5 H RDW Coeff of Mirza 15.5 H Plt Count 730 H MPV 9.5 Immature Gran % (Auto) 0.300 Neut % (Auto) 74.1 H Lymph % (Auto) 14.9 L [place] % (Auto) 8.2 Eos % (Auto) 2.0 Baso % (Auto) 0.5 Absolute Neuts (auto) 7.4 Absolute Lymphs (auto) 1.49 Nucleated RBC % 0 [address] Path Review Reviewed Sodium Potassium Chloride Carbon Dioxide Anion Gap BUN Creatinine Estim Creat Clear Calc Est GFR (MDRD) Af Amer Est GFR (MDRD) Non-Af BUN/Creatinine Ratio Glucose Calcium POC Glucose 114 H 03/07/21 05:40 WBC RBC Hgb Hct MCV MCH MCHC RDW Std Deviation RDW Coeff of Mirza Plt Count MPV Immature Gran % (Auto) Neut % (Auto) Lymph % (Auto) [place] % (Auto) Eos % (Auto) Baso % (Auto) Absolute Neuts (auto) Absolute Lymphs (auto) Nucleated RBC % Diff Path Review Sodium 135 L Potassium 4.0 Chloride 101 Carbon Dioxide 29.0 Anion Gap 5 BUN 8 Creatinine 0.33 L Estim Creat Clear Calc 46.43 Est GFR (MDRD) Af Amer 249 Est GFR (MDRD) Non-Af 205 BUN/Creatinine Ratio 24.0 H Glucose 91 Calcium 9.2 POC Glucose Micro: Microbiology 03/06/21 14:40 Urine Culture - Preliminary Urine, Clean Catch GNR Poss Pseudomonas sp Gram negative lianne 03/06/21 12:38 Gram Stain - Final Ulcer, Decubitus - Buttock Wound Culture - Preliminary Gram negative lianne GNR Poss Pseudomonas sp CT/Abdomen/Pelvis WITH Contrast IMPRESSION: No evidence of bowel obstruction. Presacral inflammatory changes in the pelvis of unclear significance. One possible etiology could be proctitis. Recommend clinical correlation. Chronic compression fractures in the lumbar spine, some of which are status post vertebroplasty. Electronically Signed: Luis F Izquierdo MD at 21:49 EDT Tel , Service support , Procedure Criteria Type of Procedure Procedure Type: Elective Elective Risks - COVID COVID Risk Discussion: The surgeon/proceduralist and patient have discussed in detail the risk of exposure to and/or potential harm posed by the COVID-19 virus with having a surgery/procedure at this time versus the risk of delaying the surgery/procedure. It is not possible to know either the risk of delaying the surgery or procedure or chance of getting an infection with perfect accuracy, but a joint decision was made between the patient and the surgeon/proceduralist to proceed at this time with the scheduled surgery/procedure as indicated on the consent form. Charges/Coding Visit Charges Inpatient E&M: 57998 Init Hosp L2 (ICD-10 - L89.154, I96, M86.9, E11.9, Z86.14, F17.200)
--- NOTE | 2021-03-07 23:18 | NURSING ---
Talked with Pt daughter she wanted to know if Dr Aguirre was sending her mother home before doing surgery. Is aid there were no orders for surgery yet. The daughter said they had said something about him debriding the wound at the bedside. I told her the daysncft nurse said that he should be debriding it some time on 03/08. I told the daughter that I would have the daysncft nurse call her after Dr Aguirre debrided it and had more information for the daughter. Her number is .
--- NOTE | 2021-03-07 23:49 | NURSING ---
Matthew Morris bed had Code 7 come up on screen on end of bed, called service center. Confirmation code [id number]. They will call a Tech and they will either come in to fix bed or call in to trouble shoot. They said for now it should be fine to leave Pt on bed, the Tech will call and let us know if we need to move her. Bed seems to be working fine.
[2021-03-08] VITALS (12 sets, daily range): BP systolic 96–125; BP diastolic 58–91; PULSE 92–114; RESP 16–18; TEMP 36.6–37.1; O2SAT 94–96
--- NOTE | 2021-03-08 | NURSING ---
Matthew Davies called he said the bed will hold air for 8-10 hours, and they will have a new bed out in the morning to replace that one.
[2021-03-08] MEDS: Acetaminophen 325 MG Tablet 650 MG PO ×3 (04:17→23:51)
[2021-03-08 07:00] LABS: Absolute Lymphocyte Count 1.25 X10^3/uL (0.83-4.51); Absolute Neutrophil Count 8.8 X10^3/uL (2.0-7.7); Basophil# 0.06 X10^3/uL; Basophil% 0.5 % (0-1); Eosinophil# 0.21 X10^3/uL; Eosinophils% 1.9 % (0-5); Hematocrit 29.6 % (37-47); Hemoglobin 9.3 g/dL (12.0-15.0); Lymphocyte # 1.25 X10^3/ul (0.83-4.51); Lymphocyte % 11.3 % (19-41); Mean Corp Hgb Conc 31.4 g/dL (32-36); Mean Corpuscular Hgb 27.2 pg (27.0-32.0); Mean Corpuscular Volume 86.5 fL (81-99); Mean Platelet Vol. 9.2 fl (6.2-12.0); Monocyte# 0.66 X10^3/uL; NRBC Flagged by Analyzer 0 % (0-5); Neutrophil # 8.84 X10^3/uL (2.7-7.7); Neutrophil % 79.8 % (47-70); Platelet Count 676 K/mm3 (150-450); RBC Distribution Width CV 15.2 % (11.6-14.6); RBC Distribution Width SD 48.3 fl (35.1-43.9); Red Blood Count 3.42 M/mm3 (4.2-5.4); White Blood Count 11.1 K/mm3 (4.4-11.0)
[2021-03-08 07:24] LABS: Anion Gap 4 (5-15); BUN 8 mg/dL (7-18); BUN/Creat Ratio 22.7 RATIO (10-20); Calcium,Total 8.9 mg/dL (8.5-10.1); Chloride 104 mmol/L (98-107); Creatinine, Serum 0.35 mg/dL (0.55-1.02); EST Glomerular Filtration Rate 193 mL/min (>60); Est Glom Filt Rate - Afr Amer 233 mL/min (>60); Estimated Creatinine Clearance 46.43 ml/min; Glucose 93 mg/dL (74-106); Potassium 3.9 mmol/L (3.5-5.1); Sodium Level 137 mmol/L (136-145)
[2021-03-08] MEDS: metFORMIN (XR) 500 MG Tablet PO ×2 (09:22→16:15)
[2021-03-08] MEDS: Ciprofloxacin 400 MG/200 ML BAG 200 MG IV ×2 (09:22→21:25)
[2021-03-08] MEDS: Aspirin 81 MG TAB.CHEW PO (09:22)
[2021-03-08] MEDS: 0.9% Saline Lock 10 ML Syringe IV ×2 (09:23→16:10)
--- NOTE | 2021-03-08 10:31 | PN.HOSP_ITS ---
Subjective Subjective Hard of hearing however appears to be okay with the idea of staying until Thursday for definitive surgery. Apparently plastic surgery will attempt bedside debridement today. No issues overnight. Objective Data Objective Data Vital Signs: Vital Signs Temp Pulse Resp BP Pulse Ox 98 F 97 18 118/91 H 95 03/08/21 02:10 03/08/21 02:10 03/08/21 02:10 03/08/21 02:10 03/08/21 07:41 Oxygen Delivery Method Room Air Weight: 126 lb 7.985 oz Body Mass Index (BMI) 21.0 Intake & Output: Intake and Output for Last 24 Hours 03/07/21 03/08/21 03/09/21 03:59 03:59 03:59 Intake Total 1168.33 / 1168.33 920 / 920 400 / 400 Output Total 450 / 450 2650 / 2650 1050 / 1050 Balance 718.33 / 718.33 -1730 / -1730 -650 / -650 Lab / Micro Data Result Diagrams: 03/08/21 06:50 03/08/21 06:50 Labs: Laboratory Results - last 24 hr 03/06/21 03/08/21 03/08/21 11:35 06:50 06:50 WBC 11.1 H RBC 3.42 L Hgb 9.3 L Hct 29.6 L MCV 86.5 MCH 27.2 MCHC 31.4 L RDW Std Deviation 48.3 H RDW Coeff of Mirza 15.2 H Plt Count 676 H MPV 9.2 Immature Gran % (Auto) 0.500 Neut % (Auto) 79.8 H Lymph % (Auto) 11.3 L [place] % (Auto) 6.0 Eos % (Auto) 1.9 Baso % (Auto) 0.5 Absolute Neuts (auto) 8.8 H Absolute Lymphs (auto) 1.25 Nucleated RBC % [address] Review Reviewed Sodium 137 Potassium 3.9 Chloride 104 Carbon Dioxide 29.0 Anion Gap 4 L BUN 8 Creatinine 0.35 L Estim Creat Clear Calc 46.43 Est GFR (MDRD) Af Amer 233 Est GFR (MDRD) Non-Af 193 BUN/Creatinine Ratio 22.7 H Glucose 93 Calcium 8.9 Micro: Microbiology 03/06/21 14:40 Urine, Clean Catch Urine Culture - Preliminary GNR Poss Pseudomonas sp Gram negative lianne 03/06/21 12:38 Ulcer, Decubitus - Buttock Gram Stain - Final 03/06/21 12:38 Ulcer, Decubitus - Buttock Wound Culture - Preliminary Gram negative lianne GNR Poss Pseudomonas sp Physical Exam Const alert, oriented x3 and no apparent distress General Appearance: cooperative HEENT normocephalic, head/scalp atraumatic, external nose normal and moist oral mucous membranes Eyes PERRL, EOMs intact bilaterally and conjunctivae normal Neck supple and no JVD Resp normal respiratory effort, no retractions, no use of accessory muscles and clear to auscultation bilaterally Auscultation: Negative for crackles, rales, rhonchi or wheezes Cardio regular rate, regular rhythm, S1 normal heart sound, S2 normal heart sound and no murmurs GI soft to palpation, non-tender and non-distended; Negative for hepatosplenomegaly GI Narrative: Colostomy bag in place. Extremity General Extremity: edema bilateral lower extremity Details: trace; Negative for clubbing or cyanosis Skin no rashes or lesions noted Wounds: wounds noted size Size: 10x12 cm stage IV decubitus ulcer, bed other P art of the wound is granulating well, and part of the wound yellowish and necrotic with undermining , malodorous and No surrounding erythema Neuro no focal motor deficits and no sensory deficits noted Psych affect normal Appearance: appropriate Assessment & Plan Assessment/Plan (1) Acute cystitis: QUALIFIERS: Hematuria presence: with hematuria Qualified Code(s): N30.01 - Acute cystitis with hematuria (2) Pressure ulcer of sacral region, stage 4: (3) Type II diabetes mellitus: PLAN: 1. Acute UTI -UA was dirty on admission -Started on Rocephin and vancomycin secondary to the sacral wound however transitioned to Cipro and Vanco today to cover her previous urine cultures -Cultures are pending with a gram-negative rods possibly Pseudomonas, will await sensitivities 2. Chronic stage IV sacral decubitus ulcer with a history of osteomyelitis -We will consult plastic surgery for evaluation and further debridement -Wound care nursing noticed a malodorous smell with a did the dressing changed today, hopefully will get coverage with Cipro and will obtain a wound culture as well -She does have palliative care at home and family does not want to send her to a senior care. -Cultures with gram-negative rods and Pseudomonas potentially 3. History of COPD with chronic respiratory failure -Not in exacerbation -Continue with her home inhalers and oxygen as needed 4. DM2 -We will hold any oral medications, continue with sliding scale insulin -Accu-Cheks AC at bedtime 5. Chronic A. fib/HTN/HLD -Blood pressure stable -Not on anticoagulation -Continue with her home blood pressure medications -Continue with statin DVT: Lovenox Charges/Coding Visit Charges Inpatient E&M: 39915 Subs Hosp L2
[2021-03-08] MEDS: Glucerna Shake 120 ML LIQUID PO ×3 (10:38→21:34)
--- NOTE | 2021-03-08 10:39 | CASEMGMT ---
Panchito GRAIN SPOUTER discussed hospice appropriateness of pt. Per , pt/family is not ready to proceed with this at this point. Pt is active with Palliative Care. Pt to have OR on Thursday for wound.
[2021-03-08] MEDS: Enoxaparin 40 MG/0.4 ML Syringe SC (11:03)
[2021-03-08] MEDS: DAKIN'S SOL HALF STRENGTH (=0.25%) 1 APPLIC TOPICAL (11:03)
[2021-03-08] MEDS: Senna/Docusate Sodium 1 Tablet 2 TABLET PO (12:17)
[2021-03-08] MEDS: Losartan Potassium 100 MG Tablet PO (12:19)
[2021-03-08] MEDS: amLODIPine 10 MG Tablet PO (12:19)
[2021-03-08] MEDS: hydroCHLOROthiazide 12.5mg 12.5 MG PO (12:19)
[2021-03-08] MEDS: oxyCODONE 5 MG Tablet PO ×2 (15:06→21:25)
[2021-03-08] MEDS: Vancomycin IV 1,000 MG/200 ML BAG 200 MG IV (16:09)
[2021-03-08 16:43] LABS: Vancomycin, Trough Level 8.8 ug/mL (5.0-15.0)
--- NOTE | 2021-03-08 16:52 | PCM.RX.CS ---
Consult Pharmacy has been consulted to manage selected antiobiotic: Vancomycin Type of Consult: Follow-up Suspected Infection: Skin/Soft tissue Prior Doses of Antibiotics Received/Current Regimen: Currently on 1gm iv q24h. Labs: Sodium 137 mmol/L (136-145) 03/08/21 06:50 Potassium 3.9 mmol/L (3.5-5.1) 03/08/21 06:50 Chloride 104 mmol/L (98-107) 03/08/21 06:50 Carbon Dioxide 29.0 mmol/L (21.0-32.0) 03/08/21 06:50 Anion Gap 4 (5-15) L 03/08/21 06:50 BUN 8 mg/dL (7-18) 03/08/21 06:50 Creatinine 0.35 mg/dL (0.55-1.02) L 03/08/21 06:50 Est GFR (MDRD) Af Amer 233 mL/min (>60) 03/08/21 06:50 Est GFR (MDRD) Non-Af 193 mL/min (>60) 03/08/21 06:50 BUN/Creatinine Ratio 22.7 RATIO (10-20) H 03/08/21 06:50 Glucose 93 mg/dL (74-106) 03/08/21 06:50 Vancomycin Trough 8.8 ug/mL (5.0-15.0) 03/08/21 15:50 Microbiology: Microbiology 03/06/21 11:35 Blood Culture (Wb) - Anticubital Right Blood Culture - Preliminary No growth in 48 hours. 03/06/21 11:45 Blood Culture (Wb) - Right Hand Blood Culture - Preliminary No growth in 48 hours. 03/06/21 14:40 Urine, Clean Catch Urine Culture - Preliminary GNR Poss Pseudomonas sp Gram negative lianne 03/06/21 12:38 Ulcer, Decubitus - Buttock Gram Stain - Final 03/06/21 12:38 Ulcer, Decubitus - Buttock Wound Culture - Preliminary Gram negative lianne GNR Poss Pseudomonas sp Weight used for dosin.4 kg Estimated Creatinine Clearance: 46 ml/min Goal Trough: 15-20 mcg/mL Pharmacy Plan for Drug Dosing: Today's trough level was 8.8 with goal range of 15-20mcg/ml. Will increase dose to 1gm iv q12h and get repeat trough level before 4th dose of new regimen. Pharmacy Service will continue to monitor and adjust dosing as required. Follow-Up Labs: Trough Vancomycin - 6.27.21 @0330 before 0400 dose
[2021-03-08] MEDS: Rosuvastatin Calcium 5 MG Tablet PO (21:27)
[2021-03-09] VITALS (11 sets, daily range): BP systolic 92–118; BP diastolic 52–72; PULSE 79–109; RESP 16–18; TEMP 36.6–37.2; O2SAT 90–96
[2021-03-09] MEDS: oxyCODONE 5 MG Tablet PO ×2 (03:04→08:52)
[2021-03-09] MEDS: Vancomycin IV 1,000 MG/200 ML BAG 200 MG IV (03:06)
[2021-03-09 07:00] LABS: Bedside Glucose 114 mg/dL (70-110)
[2021-03-09] MEDS: metFORMIN (XR) 500 MG Tablet PO ×2 (08:55→17:02)
[2021-03-09] MEDS: Aspirin 81 MG TAB.CHEW PO (08:55)
[2021-03-09] MEDS: Enoxaparin 40 MG/0.4 ML Syringe SC (10:01)
[2021-03-09] MEDS: Glucerna Shake 120 ML LIQUID PO ×3 (10:01→21:14)
[2021-03-09] MEDS: Ciprofloxacin 400 MG/200 ML BAG 200 MG IV ×2 (10:01→21:14)
[2021-03-09] MEDS: DAKIN'S SOL HALF STRENGTH (=0.25%) 1 APPLIC TOPICAL (10:02)
--- NOTE | 2021-03-09 10:04 | PN.HOSP_ITS ---
Subjective Subjective Argumentative about labs in the morning and refused them. I explained to her that labs are necessary to track her progress. Unfortunately no bedside debridement could occur, therefore will prepare for operative debridement and possible wound VAC placement on Thursday and then plan for discharge home as she refuses penitentiary and the family is agreement with that. Objective Data Objective Data Vital Signs: Vital Signs Temp Pulse Resp BP Pulse Ox 98.2 F 94 18 111/59 L 95 03/09/21 08:44 03/09/21 08:44 03/09/21 08:44 03/09/21 08:44 03/09/21 08:44 Oxygen Delivery Method Room Air Weight: 126 lb 7.985 oz Body Mass Index (BMI) 21.0 Intake & Output: Intake and Output for Last 24 Hours 03/08/21 03/09/21 03/10/21 03:59 03:59 03:59 Intake Total 920 / 920 1810 / 1810 200 / 200 Output Total 2650 / 2650 2700 / 2700 675 / 675 Balance -1730 / -1730 -890 / -890 -475 / -475 Lab / Micro Data Result Diagrams: 03/08/21 06:50 03/08/21 06:50 Labs: Laboratory Results - last 24 hr 03/08/21 03/09/21 15:50 06:31 Vancomycin Trough 8.8 POC Glucose 114 H Micro: Microbiology 03/06/21 12:38 Ulcer, Decubitus - Buttock Gram Stain - Final 03/06/21 12:38 Ulcer, Decubitus - Buttock Wound Culture - Final Klebsiella pneumoniae sp pneum Pseudomonas aeroginosa 03/06/21 14:40 Urine, Clean Catch Urine Culture - Final Pseudomonas aeroginosa Klebsiella pneumoniae sp pneum 03/06/21 11:35 Blood Culture (Wb) - Anticubital Right Blood Culture - Prelim inary No growth in 48 hours. 03/06/21 11:45 Blood Culture (Wb) - Right Hand Blood Culture - Preliminary No growth in 48 hours. Physical Exam Const alert, oriented x3 and no apparent distress General Appearance: cooperative HEENT normocephalic and moist oral mucous membranes Eyes PERRL, EOMs intact bilaterally and conjunctivae normal Neck supple and no JVD Resp normal respiratory effort, normal air movement and clear to auscultation bilaterally Auscultation: Negative for crackles, rales, rhonchi or wheezes Cardio regular rate, regular rhythm, S1 normal heart sound, S2 normal heart sound and no murmurs GI soft to palpation, non-tender and non-distended; Negative for hepatosplenomegaly GI Narrative: Colostomy bag in place. Extremity General Extremity: edema bilateral lower extremity Details: trace; Negative for clubbing or cyanosis Skin no rashes or lesions noted Skin Narrative: Stage IV decubitus ulcer/left gluteal ulcer, serous drainage. Wounds: wounds noted size Size: 10x12 cm stage IV decubitus ulcer, bed other Part of the wound is granulating well, and part of the wound yellowish and necrotic with undermining , malodorous and No surrounding erythema Neuro moves all extremities, no focal motor deficits and no sensory deficits noted Psych mental status grossly normal and affect normal Appearance: appropriate Assessment & Plan Assessment/Plan (1) Acute cystitis: QUALIFIERS: Hematuria presence: with hematuria Qualified Code(s): N30.01 - Acute cystitis with hematuria (2) Pressure ulcer of sacral region, stage 4: (3) Type II diabetes mellitus: PLAN: 1. Acute UTI due to Klebsiella pneumonia and Pseudomonas aeruginosa -UA was dirty on admission -Started on Rocephin and vancomycin secondary to the sacral wound however transitioned to Cipro and Vanco today to cover her previous urine cultures -Pansensitive organisms, continue with Cipro 2. Chronic stage IV sacral decubitus ulcer with a history of osteomyelitis -We will consult plastic surgery for evaluation and further debridement -Wound care nursing noticed a malodorous smell with a did the dressing changed t vamsi, hopefully will get coverage with Cipro and will obtain a wound culture as well -She does have palliative care at home and family does not want to send her to a penitentiary. -Cultures with Klebsiella and Pseudomonas, can discontinue vancomycin and continue with Cipro only 3. History of COPD with chronic respiratory failure -Not in exacerbation -Continue with her home inhalers and oxygen as needed 4. DM2 -We will hold any oral medications, continue with sliding scale insulin -Accu-Cheks AC at bedtime 5. Chronic A. fib/HTN/HLD -Blood pressure stable -Not on anticoagulation -Continue with her home blood pressure medications -Continue with statin DVT: Lovenox Charges/Coding Visit Charges Inpatient E&M: 13120 Subs Hosp L2
[2021-03-09] MEDS: 0.9% Saline Lock 10 ML Syringe IV (10:22)
[2021-03-09] MEDS: amLODIPine 10 MG Tablet PO (12:10)
[2021-03-09] MEDS: Losartan Potassium 100 MG Tablet PO (12:10)
[2021-03-09] MEDS: hydroCHLOROthiazide 12.5mg 12.5 MG PO (12:10)
[2021-03-09 14:47] LABS: Absolute Lymphocyte Count 1.18 X10^3/uL (0.83-4.51); Absolute Neutrophil Count 8.4 X10^3/uL (2.0-7.7); Basophil# 0.04 X10^3/uL; Basophil% 0.4 % (0-1); Eosinophil# 0.15 X10^3/uL; Eosinophils% 1.4 % (0-5); Hematocrit 27.2 % (37-47); Hemoglobin 8.6 g/dL (12.0-15.0); Lymphocyte # 1.18 X10^3/ul (0.83-4.51); Lymphocyte % 11.1 % (19-41); Mean Corp Hgb Conc 31.6 g/dL (32-36); Mean Corpuscular Hgb 27.5 pg (27.0-32.0); Mean Corpuscular Volume 86.9 fL (81-99); Mean Platelet Vol. 9.2 fl (6.2-12.0); Monocyte% 7.5 % (0-10); NRBC Flagged by Analyzer 0 % (0-5); Neutrophil # 8.43 X10^3/uL (2.7-7.7); Neutrophil % 79.2 % (47-70); Platelet Count 652 K/mm3 (150-450); RBC Distribution Width CV 15.4 % (11.6-14.6); RBC Distribution Width SD 49.1 fl (35.1-43.9); Red Blood Count 3.13 M/mm3 (4.2-5.4); White Blood Count 10.6 K/mm3 (4.4-11.0)
[2021-03-09 15:03] LABS: Anion Gap 6 (5-15); BUN 14 mg/dL (7-18); BUN/Creat Ratio 37.7 RATIO (10-20); Calcium,Total 8.7 mg/dL (8.5-10.1); Chloride 99 mmol/L (98-107); Creatinine, Serum 0.37 mg/dL (0.55-1.02); EST Glomerular Filtration Rate 182 mL/min (>60); Est Glom Filt Rate - Afr Amer 220 mL/min (>60); Estimated Creatinine Clearance 46.43 ml/min; Glucose 146 mg/dL (74-106); Sodium Level 135 mmol/L (136-145)
[2021-03-09] MEDS: Acetaminophen 325 MG Tablet 650 MG PO (17:02)
[2021-03-09] MEDS: Senna/Docusate Sodium 1 Tablet 2 TABLET PO (17:02)
[2021-03-09] MEDS: Rosuvastatin Calcium 5 MG Tablet PO (21:15)
[2021-03-10] VITALS (11 sets, daily range): BP systolic 97–146; BP diastolic 47–87; PULSE 88–102; RESP 16–18; TEMP 36.9–37.2; O2SAT 92–97
[2021-03-10] MEDS: oxyCODONE 5 MG Tablet PO ×4 (05:03→21:00)
[2021-03-10] MEDS: Aspirin 81 MG TAB.CHEW PO (08:53)
[2021-03-10] MEDS: metFORMIN (XR) 500 MG Tablet PO ×2 (08:53→16:47)
[2021-03-10] MEDS: Glucerna Shake 120 ML LIQUID PO ×4 (08:53→21:00)
--- NOTE | 2021-03-10 09:01 | PN.HOSP_ITS ---
Subjective Subjective No issues overnight, continues to refuse lab draws in the morning though she did consent yesterday afternoon to have her morning labs drawn. Objective Data Objective Data Vital Signs: Vital Signs Temp Pulse Resp BP Pulse Ox 98.9 F 102 H 18 146/87 H 97 03/10/21 08:47 03/10/21 08:47 03/10/21 08:47 03/10/21 08:47 03/10/21 08:47 Oxygen Delivery Method Room Air Weight: 126 lb 7.985 oz Body Mass Index (BMI) 21.0 Intake & Output: Intake and Output for Last 24 Hours 03/09/21 03/10/21 03/11/21 03:59 03:59 03:59 Intake Total 1810 / 1810 2060 / 2060 550 / 550 Output Total 2700 / 2700 2125 / 2125 800 / 800 Balance -890 / -890 -65 / -65 -250 / -250 Lab / Micro Data Result Diagrams: 03/09/21 14:33 03/09/21 14:33 Labs: Laboratory Results - last 24 hr 03/09/21 03/09/21 14:33 14:33 WBC 10.6 RBC 3.13 L Hgb 8.6 L Hct 27.2 L MCV 86.9 MCH 27.5 MCHC 31.6 L RDW Std Deviation 49.1 H RDW Coeff of Mirza 15.4 H Plt Count 652 H MPV 9.2 Immature Gran % (Auto) 0.400 Neut % (Auto) 79.2 H Lymph % (Auto) 11.1 L [place] % (Auto) 7.5 Eos % (Auto) 1.4 Baso % (Auto) 0.4 Absolute Neuts (auto) 8.4 H Absolute Lymphs (auto) 1.18 Nucleated RBC % 0 Sodium 135 L Potassium 4.0 Chloride 99 Carbon Dioxide 30.0 Anion Gap 6 BUN 14 Creatinine 0.37 L Estim Creat Clear Calc 46.43 Est GFR (MDRD) Af Amer 220 Est GFR (MDRD) Non-Af 182 BUN/Creatinine Ratio 37.7 H Glucose 146 H Calcium 8.7 Micro: Microbiology 03/06/21 12:38 Ulcer, Decubitus - Buttock Gram Stain - Final 03/06/21 12:38 Ulcer, Decubitus - Buttock Wound Culture - Final Klebsiella pneumoniae sp pneum Pseudomonas aeroginosa 03/06/21 14:40 Urine, Clean Catch Urine Culture - Final Pseudomonas aeroginosa Klebsiella pneumoniae sp pneum 03/06/21 11:35 Blood Culture (Wb) - Anticubital Right Blood Culture - Preliminary No growth in 48 hours. 03/06/21 11:45 Blood Culture (Wb) - Right Hand Blood Culture - Preliminary No growth in 48 hours. Physical Exam Const alert, oriented x3 and no apparent distress General Appearance: cooperative HEENT normocephalic and moist oral mucous membranes Eyes PERRL, EOMs intact bilaterally and conjunctivae normal Neck supple and no JVD Resp normal respiratory effort, normal air movement and clear to auscultation bilaterally Auscultation: Negative for crackles, rales, rhonchi or wheezes Cardio regular rate, regular rhythm, S1 normal heart sound, S2 normal heart sound and no murmurs GI soft to palpation, non-tender and non-distended; Negative for hepatosplenomegaly GI Narrative: Colostomy bag in place. Extremity General Extremity: edema bilateral lower extremity Details: trace; Negative for clubbing or cyanosis Skin no rashes or lesions noted Skin Narrative: Stage IV decubitus ulcer/left gluteal ulcer, serous drainage. Wounds: wounds noted size Size: 10x12 cm stage IV decubitus ulcer, bed other Par t of the wound is granulating well, and part of the wound yellowish and necrotic with undermining , malodorous and No surrounding erythema Neuro moves all extremities, no focal motor deficits and no sensory deficits noted Psych mental status grossly normal and affect normal Appearance: appropriate Assessment & Plan Assessment/Plan (1) Acute cystitis: QUALIFIERS: Hematuria presence: with hematuria Qualified Code(s): N30.01 - Acute cystitis with hematuria (2) Pressure ulcer of sacral region, stage 4: (3) Type II diabetes mellitus: PLAN: 1. Acute UTI due to Klebsiella pneumonia and Pseudomonas aeruginosa -UA was dirty on admission -Started on Rocephin and vancomycin secondary to the sacral wound however transitioned to Cipro and Vanco today to cover her previous urine cultures -Pansensitive organisms, continue with Cipro 2. Chronic stage IV sacral decubitus ulcer with a history of osteomyelitis -We will consult plastic surgery for evaluation and further debridement -Wound care nursing noticed a malodorous smell with the dressing changed -She does have palliative care at home and family does not want to send her to a [facility]. -Cultures with Klebsiella and Pseudomonas, can discontinue vancomycin and contin ue with Cipro only 3. History of COPD with chronic respiratory failure -Not in exacerbation -Continue with her home inhalers and oxygen as needed 4. DM2 -She is refusing insulin therefore she was placed back on her Metformin I did discuss with her the risks 5. Chronic A. fib/HTN/HLD -Blood pressure stable -Not on anticoagulation -Continue with her home blood pressure medications -Continue with statin DVT: Lovenox Charges/Coding Visit Charges Inpatient E&M: 22795 Subs Hosp L2
[2021-03-10] MEDS: Enoxaparin 40 MG/0.4 ML Syringe SC (09:03)
[2021-03-10] MEDS: DAKIN'S SOL HALF STRENGTH (=0.25%) 1 APPLIC TOPICAL (09:04)
[2021-03-10] MEDS: Ciprofloxacin 400 MG/200 ML BAG 200 MG IV ×2 (09:04→21:00)
[2021-03-10] MEDS: Acetaminophen 325 MG Tablet 650 MG PO ×2 (12:31→18:22)
[2021-03-10] MEDS: Senna/Docusate Sodium 1 Tablet 2 TABLET PO (12:31)
[2021-03-10] MEDS: Losartan Potassium 100 MG Tablet PO (13:12)
[2021-03-10] MEDS: hydroCHLOROthiazide 12.5mg 12.5 MG PO (13:12)
[2021-03-10] MEDS: amLODIPine 10 MG Tablet PO (13:12)
[2021-03-10] MEDS: Rosuvastatin Calcium 5 MG Tablet PO (21:00)
[2021-03-10] MEDS: 0.9% Saline Lock 10 ML Syringe IV (23:48)
[2021-03-10] MEDS: Morphine 2 MG/ML Syringe IV (23:48)
[2021-03-11] VITALS (18 sets, daily range): BP systolic 105–131; BP diastolic 58–97; PULSE 61–104; RESP 14–18; TEMP 36.1–37; O2SAT 91–100; BMI 21.0
[2021-03-11] MEDS: Acetaminophen 325 MG Tablet 650 MG PO (02:38)
--- NOTE | 2021-03-11 05:00 | EKG12_ITS ---
Test Reason : AM EKG Blood Pressure : / mmHG Vent. Rate : 094 BPM Atrial Rate : 094 BPM P-R Int : 156 ms QRS Dur : 080 ms QT Int : 366 ms P-R-T Axes : 047 063 064 degrees QTc Int : 457 ms Normal sinus rhythm Normal ECG When compared with ECG of 06-MAR-2021 13:46, MANUAL COMPARISON REQUIRED, DATA IS UNCONFIRMED Confirmed by RICKI SAUCEDO, TOÑITO ([id number]), film and video editor ROCKY ANGELA ([id number]) on 03/12/2021 9:19:15 AM Referred By: TANI Confirmed By:TOÑITO ROBISON MD
[2021-03-11 06:30] LABS: Absolute Lymphocyte Count 1.44 X10^3/uL (0.83-4.51); Basophil# 0.07 X10^3/uL; Basophil% 0.7 % (0-1); Eosinophil# 0.35 X10^3/uL; Eosinophils% 3.6 % (0-5); Hematocrit 29.7 % (37-47); Lymphocyte # 1.44 X10^3/ul (0.83-4.51); Lymphocyte % 14.9 % (19-41); Mean Corp Hgb Conc 30.3 g/dL (32-36); Mean Corpuscular Hgb 26.7 pg (27.0-32.0); Mean Corpuscular Volume 88.1 fL (81-99); Mean Platelet Vol. 9.3 fl (6.2-12.0); Monocyte# 0.74 X10^3/uL; Monocyte% 7.6 % (0-10); NRBC Flagged by Analyzer 0 % (0-5); Neutrophil # 7.03 X10^3/uL (2.7-7.7); Neutrophil % 72.6 % (47-70); Platelet Count 677 K/mm3 (150-450); RBC Distribution Width CV 15.2 % (11.6-14.6); RBC Distribution Width SD 49.6 fl (35.1-43.9); Red Blood Count 3.37 M/mm3 (4.2-5.4); White Blood Count 9.7 K/mm3 (4.4-11.0)
[2021-03-11 06:41] LABS: International Normalized Ratio 1.1; Prothrombin Time (Protime)PT. 13.3 SECONDS (11.7-14.9)
[2021-03-11 06:42] LABS: Partial Thromboplast Time 34.5 Seconds (24.1-36.2)
[2021-03-11 06:51] LABS: Anion Gap 8 (5-15); BUN 13 mg/dL (7-18); BUN/Creat Ratio 34.8 RATIO (10-20); Calcium,Total 8.7 mg/dL (8.5-10.1); Chloride 97 mmol/L (98-107); Creatinine, Serum 0.37 mg/dL (0.55-1.02); EST Glomerular Filtration Rate 180 mL/min (>60); Est Glom Filt Rate - Afr Amer 218 mL/min (>60); Estimated Creatinine Clearance 46.43 ml/min; Glucose 91 mg/dL (74-106); Potassium 4.4 mmol/L (3.5-5.1); Sodium Level 133 mmol/L (136-145)
[2021-03-11 07:58] LABS: Hemoglobin A1c 5.4 % (3.8-5.6)
[2021-03-11] MEDS: Ciprofloxacin 400 MG/200 ML BAG 200 MG IV ×2 (09:50→21:30)
--- NOTE | 2021-03-11 10:57 | NURSING ---
1030 STAFF HERE TO TRANSPORT PT DOWN FOR SURGERY. DAUGHTER AWARE AND WILL CALL THE
--- NOTE | 2021-03-11 11:11 | PN.HOSP_ITS ---
Subjective Subjective Patient seen and examined. She complained of feeling tired and weak. She has no other complaints. REview of systems is otherwise negative. She is to have debridement of sacral decubitus ulcer. Objective Data Objective Data Vital Signs: Vital Signs Temp Pulse Resp BP Pulse Ox 98.3 F 90 16 123/67 H 91 03/11/21 09:27 03/11/21 09:27 03/11/21 09:27 03/11/21 09:27 03/11/21 09:27 Oxygen Delivery Method Room Air Weight: 126 lb 7.985 oz Body Mass Index (BMI) 21.0 Intake & Output: Intake and Output for Last 24 Hours 03/09/21 03/10/21 03/11/21 23:59 23:59 23:59 Intake Total 0 / 2420 2066 / 2066 Output Total 1974 / 2724 2275 / 3125 1500 / 1500 Balance 145 / -305 -208 / -1058 -1500 / -1500 Lab / Micro Data Result Diagrams: 03/11/21 05:45 03/11/21 05:45 Labs: Laboratory Results - last 24 hr 03/11/21 03/11/21 03/11/21 05:45 05:45 05:45 WBC 9.7 RBC 3.37 L Hgb 9.0 L Hct 29.7 L MCV 88.1 MCH 26.7 L MCHC 30.3 L RDW Std Deviation 49.6 H RDW Coeff of Mirza 15.2 H Plt Count 677 H MPV 9.3 Immature Gran % (Auto) 0.600 Neut % (Auto) 72.6 H Lymph % (Auto) 14.9 L [place] % (Auto) 7.6 Eos % (Auto) 3.6 Baso % (Auto) 0.7 Absolute Neuts (auto) 7.0 Absolute Lymphs (auto) 1.44 Nucleated RBC % 0 PT 13.3 INR 1.1 APTT 34.5 Sodium 133 L Potassium 4.4 Chloride 97 L Carbon Dioxide 28.0 Anion Gap 8 BUN 13 Creatinine 0.37 L Estim Creat Clear Calc 46.43 Est GFR (MDRD) Af Amer 218 Est GFR (MDRD) Non-Af 180 BUN/Creatinine Ratio 34.8 H Glucose 91 Hemoglobin A1c Calcium 8.7 03/11/21 05:45 WBC RBC Hgb Hct MCV MCH MCHC RDW Std Deviation RDW Coeff of Mirza Plt Count MPV Immature Gran % (Auto) Neut % (Auto) Lymph % (Auto) [place] % (Auto) Eos % (Auto) Baso % (Auto) Absolute Neuts (auto) Absolute Lymphs (auto) Nucleated RBC % PT INR APTT Sodium Potassium Chloride Carbon Dioxide Anion Gap BUN Creatinine Estim Creat Clear Calc Est GFR (MDRD) Af Amer Est GFR (MDRD) Non-Af BUN/Creatinine Ratio Glucose Hemoglobin A1c 5.4 Calcium Micro: Microbiology 03/11/21 09:20 Mucosa - Nose SARS-CoV-2 Antigen (Rapid) - Final 03/06/21 12:38 Ulcer, Decubitus - Buttock Gram Stain - Final 03/06/21 12:38 Ulcer, Decubitus - Buttock Wound Culture - Final Klebsiella pneumoniae sp pneum Pseudomonas aeroginosa 03/06/21 14:40 Urine, Clean Catch Urine Culture - Final Pseudomonas aeroginosa Klebsiella pneumoniae sp pneum 03/06/21 11:35 Blood Culture (Wb) - Anticubital Right Blood Culture - Preliminary No growth in 48 hours. 03/06/21 11:45 Blood Culture (Wb) - Right Hand Blood Culture - Preliminary No growth in 48 hours. Physical Exam Const alert, oriented x3 and no apparent distress Exam Limitations: no limitations HEENT head/scalp atraumatic and moist oral mucous membranes HEENT Narrative: very hard of hearing Head and Scalp: normocephalic Eyes PERRL, EOMs intact bilaterally and conjunctivae normal Neck no lymphadenopathy, supple and no JVD Resp normal respiratory effort, no use of accessory muscles and clear to auscultation bilaterally GI normal to inspection, nondistended, normoactive bowel sounds, soft to palpation and non-distended GI Narrative: colostomy bag in place Extremity normal to inspection, full ROM and no clubbing, cyanosis or edema Peripheral Pulses: Yes pulses 2+ throughout Skin Skin Narrative: dressing over site of decubitus ulcer Neuro oriented x3 and moves all extremities Sensorium / Orientation: awake and alert Psych affect normal Assessment & Plan Assessment/Plan (1) Pressure ulcer of sacral region, stage 4: (2) Acute cystitis: QUALIFIERS: Hematuria presence: with hematuria Qualified Code(s): N30.01 - Acute cystitis with hematuria PLAN: #UTI due to Klebsiella pneumonia and Pseudomonas aeruginosa * on IV ciprofloxacin based on urine cultures, with both organisms sensitive to ciprofloxacin * #Stage IV decubitus ulcer with history of osteomyelitis * plastic surgery on board; for debridement today * wound culture grew Klebsiella and Pseudomonas * on IV ciprofloxacin * wound care on board * #History of chronic respiratory failure due to COPD * on breathing treatment with bronchodilators * not in exacerbation * #Hypertension; on amlodipine and HCTZ. #Afib: stable #Type 2 diabetes mellitus * on metformin. ISS. Accuchecks ACHS * was refusing shelter insulin * #Hyperlipidemia: on statin DVT: Lovenox Charges/Coding Visit Charges Inpatient E&M: 07173 Subs Hosp L3
--- NOTE | 2021-03-11 11:40 | PRES_PTH ---
PATIENT: TATIANA DICKEY LOC: MS3 U#:[id number] AGE/SX: 70/F ROOM: [facility] [place]06[facility]: Dr. Griselda Wagner MD : 1950 BED: 1 DIS: 03/12/2021 SPEC #: [id number] RECD: 03/11/21 13:58 STATUS: JOÃO REQ #: [id number] TIANNA: 03/11/21 11:[address]: Riki Aguirre DEPT: SURGICAL PATHOLOGY RECD BY: Mary Vuong ENTERED: 03/12/21 08:12 SP TYPE: PRESS SORE OTHR DR: MD Dr. Ifeanyi Jacobo MD Dr. James A Slaby, MD Dr. Nana Yaa Koram, MD Tissues: A - Ischium, NOS B - Ischium, NOS Procedures: Decalcification bone/plaque Surgery Specimen Level IV Comments: @ Ordering doctor for DEC edited from to @ by CHELSEA at 03/12/21 0954 @ Ordering doctor for SUIV edited from to @ by CHELSEA at 03/12/21 0954 @ Submitting doctor edited from to DR.[email or web address] Ibarra by RGOOD at 03/12/21 0954 HEADER OPERATION: Excision of necrotic sacral pressure sore PRE-OP DIAGNOSIS: Pressure ulcer of sacral region, stage 4 TISSUE SUBMITTED: A - Necrotic sacral pressure sore tissue, B - Necrotic sacral pressure sore bone MICROSCOPIC DIAGNOSIS A. Soft tissue of sacral region, excision: Ulceration with associated acute and chronic inflammation and granulation. B. Sacral bone, biopsy: Acute osteomyelitis. AM:maame 03/13/2021 MICROSCOPIC DESCRIPTION Slides are reviewed. GROSS DESCRIPTION A - Received in fixative is one container labeled with the patient's name and designated necrotic sacral pressure sore tissue. The specimen consists of four variable sized piece of skin with underlying tissue measuring in aggregate 10.5 x 10 cm and up to 3 cm in thickness. The skin surface shows an extensive area of ulceration. Road Machine Operator sections are submitted in three cassettes. B - Received in fixative is one container labeled with the patient's name and designated necrotic sacral pressure sore bone. The specimen consists of four fragments of bone that in aggregate measure 1.5 x 1.5 x 0.3 cm. The entire specimen is submitted in one cassette after decalcification. / SJ:maame 03/12/21 TC:2 CPT: 63427 x2, 87274
--- NOTE | 2021-03-11 12:59 | PCM.OPRPT ---
Problems Associated Problem List Diagnoses (1) Pseudomonas aeruginosa infection: (2) Skin necrosis: (3) Pressure ulcer of sacral region, stage 4: (4) Osteomyelitis of pelvic region: (5) Type II diabetes mellitus: (6) History of MRSA infection: (7) Smoker: Report of Operation Date of Procedure: 03/11/21 Pre-Operative Diagnosis: 1. Pressure ulcer of sacral region, stage 4. 2. Skin necrosis. 3. Osteomyelitis of pelvic region. 4. Type II diabetes mellitus. 5. History of MRSA infection. 6. Pseudomonas infection. 7. Smoker. Post-Operative Diagnosis: Same. Surgery/Procedure Performed:: Excision necrotic sacral pressure sore, Stage IV, with partial ostectomy for osteomyelitis. Description of Surgical Findings:: 70 YEAR OLD WOMAN WAS ADMITTED FOR ACUTE CYSTITIS AND WORSENING OF HER SACRAL PRESSURE SORE, STAGE IV. SHE HAD UNDERGONE AN EXCISION OF THE SACRAL PRESSURE SORE BACK IN October,. SHE ALSO HAD OSTEOMYELITIS. SHE WAS TREATED WITH ANTIBIOTICS AND WOUND CARE. THERE WERE ISSUES WITH STOOL CONTAMINATION AND A DIVERTING COLOSTOMY WAS DONE. [facility] HAD [facility]EN [facility] THE [facility] AND WAS RECENTLY DISCHARGED HOME ABOUT 3 WEEKS AGO. SINCE THEN THERE WAS INCREASING DRAINAGE AND ODOR COMING FROM THE SACRAL PRESSURE SORE WELL WORSENING NECROSIS. SHE WAS STARTED ON VANCOMYCIN AND ROCEPHIN. WBC WAS 10.0. DAKIN'S DRESSING CHANGES WERE STARTED. I WAS ASKED TO EVALUATE THIS PATIENT FOR SURGICAL OPTIONS FOR TREATMENT. Patient was informed of the risks and complications of the procedure including alternatives to surgery. These were discussed with the patient personally. Patient voices understanding and wishes to proceed. Size of defect sacral area - 11 x 17 x 2 cm. Surgeon: Riki Aguirre cattle rancher: None Type of Anesthesia: General Specimen's removed: 1. Necrotic sacral pressure sore soft tissue to Pathology and Microbiology. 2. Necrotic sacral pressure sore bone to Pathology and Microbiology. Drains: None. Estimated Blood Loss (mL): 150. Description of Procedure: Patient was taken to OR in supine position and was placed under general anesthesia. She was placed in the prone position. SCD's were placed for DVT prophylaxis. Perioperative antibiotics were given intravenously. The sacral area was prepped and draped in the usual fashion. Using xylocaine with epinephrine, the sacral pressure sore was infiltrated. After waiting 5 minutes for the anesthetic to take effect, I excised the necrotic sacral pressure sore in a circular fashion through subcutaneous tissue and extensive necrotic muscle which extended down to the bone. A partial ostectomy was then performed using rongeurs. The bone looked grayish and was soft and mushy. Clinically the bone looked suspicious for osteomyelitis. Specimens from several areas of bone were taken. A rasp was used to smooth out the bony edges. After excising the extensive fat necrosis and muscle necrosis and abnormal bursal scar tissue, the remaining soft tissue showed good bleeding. After the necrotic sacral pressure sore was excised, the remaining initial sacral pressure sore which showed good granulation tissue was debrided with rongeurs. Hemostasis was obtained with electrocautery. The size of the sacral pressure sore after excision was 11 x 17 x 2 cm. The necrotic portion of the sacral pressure sore was to the right. The initial sacral pressure that was excised in 11/04 is showing good granulation tissue. The wound was irrigated with saline. I then dressed the wound by placing Mepitel nonadherent dressing in the base of the wound followed by Kerlix gauze and Betadine and dry Kerlix gauze followed by ABD pads compression dressing. Half the soft tissue and half the bone was sent to Pathology for analysis to rule out carcinoma and to evaluate for osteomyelitis. Half the soft tissue and half the bone was sent to Microbiology for culture. A positive culture will necessitate antibiotic therapy. If pathology is positive for osteomyelitis, then terminal computer operator IV antibiotics would be needed through a PICC line. Patient tolerated the procedure well and was sent to PACU in satisfactory condition. Patient will be sent upstairs for continued postop care. The VAC will be placed tomorrow. Anticipate increased metabolic demands. Will check a Prealbumin and encourage nutritional supplementation with protein to help the healing process. Grafts/Implants Used: None. Complications None. Admit VTE Documentation VTE Present on Admission: No VTE Mechan Device Prophylaxis: SCD's VTE Pharm Prophylaxis ordered?: Yes Addendum Addendum: Surgery Charges CPT - 40335 ICD-10 - L89.154, I96, M86.9, A49.8, Z86.14, E11.9, F17.200
[2021-03-11 14:16] LABS: Bedside Glucose 102 mg/dL (70-110)
--- NOTE | 2021-03-11 14:23 | CASEMGMT ---
TC to [facility] to update on pt status that she may possibly be dc'd tomorrow with a wound vac. Spoke with Madhu. Will fax final orders and dc instructions when available.
[2021-03-11] MEDS: metFORMIN (XR) 500 MG Tablet PO (17:42)
[2021-03-11] MEDS: 0.9% Saline Lock 10 ML Syringe IV ×2 (17:46→21:30)
[2021-03-11] MEDS: Morphine 2 MG/ML Syringe IV ×2 (17:46→21:30)
[2021-03-11] MEDS: oxyCODONE 5 MG Tablet PO (19:52)
[2021-03-11] MEDS: Ondansetron 4 MG/2 ML Vial IV (19:52)
[2021-03-11] MEDS: Rosuvastatin Calcium 5 MG Tablet PO (21:31)
[2021-03-12] VITALS (8 sets, daily range): BP systolic 107–150; BP diastolic 51–79; PULSE 64–105; RESP 16–18; TEMP 36.6–37.1; O2SAT 94–100
[2021-03-12] MEDS: Morphine 2 MG/ML Syringe IV ×2 (02:32→09:32)
[2021-03-12] MEDS: 0.9% Saline Lock 10 ML Syringe IV ×3 (02:32→09:54)
--- NOTE | 2021-03-12 02:37 | NURSING ---
Pt using call light repeatedly without allowing the RN to get her medication for her. The call light would be answered and the pt would immediately hit it again time after time. This RN cautioned pt that this behavior was unacceptable. She needs to allow the nurse time to bring her medication. Even after I cautioned the pt that this was unacceptable, she would immediately put her call light on as soon as someone left the room. She has trouble hearing staff as well so we end up talking extremely loud in order to be heard.
[2021-03-12] MEDS: oxyCODONE 5 MG Tablet PO ×2 (04:50→11:14)
[2021-03-12 06:54] LABS: Absolute Lymphocyte Count 1.07 X10^3/uL (0.83-4.51); Absolute Neutrophil Count 8.5 X10^3/uL (2.0-7.7); Basophil# 0.04 X10^3/uL; Basophil% 0.4 % (0-1); Eosinophil# 0.15 X10^3/uL; Eosinophils% 1.5 % (0-5); Hematocrit 25.8 % (37-47); Hemoglobin 7.9 g/dL (12.0-15.0); Lymphocyte # 1.07 X10^3/ul (0.83-4.51); Lymphocyte % 10.4 % (19-41); Mean Corp Hgb Conc 30.6 g/dL (32-36); Mean Corpuscular Hgb 26.9 pg (27.0-32.0); Mean Corpuscular Volume 87.8 fL (81-99); Mean Platelet Vol. 9.2 fl (6.2-12.0); Monocyte# 0.53 X10^3/uL; Monocyte% 5.1 % (0-10); NRBC Flagged by Analyzer 0 % (0-5); Neutrophil # 8.48 X10^3/uL (2.7-7.7); Platelet Count 485 K/mm3 (150-450); RBC Distribution Width CV 15.2 % (11.6-14.6); Red Blood Count 2.94 M/mm3 (4.2-5.4); White Blood Count 10.3 K/mm3 (4.4-11.0)
[2021-03-12 07:07] LABS: Erythrocyte Sedimentation Rate 84 mm/hr (0-30)
--- NOTE | 2021-03-12 07:41 | PN.HOSP_ITS ---
Subjective Subjective Patient seen and examined. She had excisional debridement of the necrotic sacral decubitus ulcer with partial ostectomy for osteomyelitis. She has remained hemodynamically stable. Pain is well controlled. Review systems otherwise negative. Objective Data Objective Data Vital Signs: Vital Signs Temp Pulse Resp BP Pulse Ox 97.9 F 92 18 107/51 L 100 03/12/21 04:48 03/12/21 04:48 03/12/21 04:48 03/12/21 04:48 03/12/21 07:20 Oxygen Flow Rate (L/min) 2 Oxygen Delivery Method Nasal Cannula Weight: 126 lb 7.985 oz Body Mass Index (BMI) 21.0 Intake & Output: Intake and Output for Last 24 Hours 03/10/21 03/11/21 03/12/21 23:59 23:59 23:59 Intake Total 2067 / 2067 950 / 950 240 / 240 Output Total 2275 / 3125 2700 / 2700 550 / 550 Balance -208 / -1058 -1750 / -1750 -310 / -310 Lab / Micro Data Result Diagrams: 03/12/21 06:50 03/11/21 05:45 Labs: Laboratory Results - last 24 hr 03/11/21 03/11/21 03/12/21 05:45 14:09 06:50 WBC 10.3 RBC 2.94 L Hgb 7.9 L Hct 25.8 L MCV 87.8 MCH 26.9 L MCHC 30.6 L RDW Std Deviation 49.0 H RDW Coeff of Mirza 15.2 H Plt Count 485 H MPV 9.2 Immature Gran % (Auto) 0.600 Neut % (Auto) 82.0 H Lymph % (Auto) 10.4 L [place] % (Auto) 5.1 Eos % (Auto) 1.5 Baso % (Auto) 0.4 Absolute Neuts (auto) 8.5 H Absolute Lymphs (auto) 1.07 Nucleated RBC % 0 ESR 84 H Hemoglobin A1c 5.4 POC Glucose 102 Micro: Microbiology 03/06/21 11:35 Blood Culture (Wb) - Anticubital Right Blood Culture - Final No growth in 5 days. 03/06/21 11:45 Blood Culture (Wb) - Right Hand Blood Culture - Final No growth in 5 days. 03/11/21 09:20 Mucosa - Nose SARS-CoV-2 Antigen (Rapid) - Final 03/06/21 12:38 Ulcer, Decubitus - Buttock Gram Stain - Final 03/06/21 12:38 Ulcer, Decubitus - Buttock Wound Culture - Final Klebsiella pneumoniae sp pneum Pseudomonas aeroginosa 03/06/21 14:40 Urine, Clean Catch Urine Culture - Final Pseudomonas aeroginosa Klebsiella pneumoniae sp pneum Physical Exam Const alert, oriented x3 and no apparent distress General Appearance: cooperative Exam Limitations: no limitations HEENT normocephalic, head/scalp atraumatic and moist oral mucous membranes Head and Scalp: normocephalic Eyes PERRL, EOMs intact bilaterally and conjunctivae normal General Eye: normal appearance of both eyes Neck no lymphadenopathy, supple and no JVD Lymph Lymphatic: no lymphadenopathy noted Resp normal respiratory effort, normal air movement, no retractions, no use of accessory muscles and clear to auscultation bilaterally Auscultation: Negative for crackles, rales, rhonchi or wheezes Cardio regular rate, regular rhythm, S1 normal heart sound, S2 normal heart sound and no murmurs Cardio Narrative: Irregular rate and rhythm. GI normal to inspection, nondistended, normoactive bowel sounds, soft to palpation, non-tender and non-distended; Negative for hepatosplenomegaly GI Narrative: colostomy bag in place Extremity normal to inspection, full ROM and no clubbing, cyanosis or edema General Extremity: Negative for clubbing or cyanosis Peripheral Pulses: Yes pulses 2+ throughout Skin no rashes or lesions noted Skin Narrative: dressing over site of decubitus ulcer Wounds: wounds noted size Size: 10x12 cm stage IV decubitus ulcer, bed other Part of the wound is granulating well, and part of the wound yellowish and necrotic with undermining , malodorous and No surrounding erythema Neuro oriented x3, moves all extremities, no focal motor deficits and no sensory deficits noted Sensorium / Orientation: awake and alert Speech: speech normal Motor Exam: strength 5/5 throughout Psych mental status grossly normal and affect normal Psych Narrative: Flat affect. Appearance: appropriate Assessment & Plan Assessment/Plan (1) Pressure ulcer of sacral region, stage 4: (2) Acute cystitis: QUALIFIERS: Hematuria presence: with hematuria Qualified Code(s): N30.01 - Acute cystitis with hematuria PLAN: #UTI due to Klebsiella pneumonia and Pseudomonas aeruginosa * on IV ciprofloxacin based on urine cultures, with both organisms sensitive to ciprofloxacin * #Stage IV decubitus ulcer with history of osteomyelitis * plastic surgery on board; had excisional debridement and partial ostectomy yesterday. Today's postop day 1. * wound culture grew Klebsiella and Pseudomonas * on IV ciprofloxacin * wound care on board * #History of chronic respiratory failure due to COPD * on breathing treatment with bronchodilators * not in exacerbation * #Acute on chronic anemia * Hemoglobin is 7.9, down from 9 yesterday. This is likely due to blood loss from surgery. We will trend and monitor. Transfuse if hemoglobin drops to less than 7. * #Hypertension; on amlodipine and HCTZ. #Afib: stable #Type 2 diabetes mellitus * on metformin. ISS. Accuchecks ACHS * was refusing ferry terminal agent insulin * #Hyperlipidemia: on statin DVT: Lovenox Charges/Coding Visit Charges Inpatient E&M: 19565 Subs Hosp L3
[2021-03-12 07:46] LABS: Anion Gap 8 (5-15); BUN 9 mg/dL (7-18); BUN/Creat Ratio 26.2 RATIO (10-20); Calcium,Total 8.6 mg/dL (8.5-10.1); Chloride 98 mmol/L (98-107); Creatinine, Serum 0.34 mg/dL (0.55-1.02); EST Glomerular Filtration Rate 199 mL/min (>60); Est Glom Filt Rate - Afr Amer 241 mL/min (>60); Estimated Creatinine Clearance 46.43 ml/min; Glucose 96 mg/dL (74-106); Potassium 4.5 mmol/L (3.5-5.1); Prealbumin 8.8 mg/dL (20.0-40.0); Sodium Level 132 mmol/L (136-145)
[2021-03-12] MEDS: Ondansetron 4 MG/2 ML Vial IV (09:54)
[2021-03-12] MEDS: Ciprofloxacin 400 MG/200 ML BAG 200 MG IV (09:55)
[2021-03-12] MEDS: Enoxaparin 40 MG/0.4 ML Syringe SC (09:59)
[2021-03-12] MEDS: Aspirin 81 MG TAB.CHEW PO (09:59)
[2021-03-12] MEDS: metFORMIN (XR) 500 MG Tablet PO ×2 (09:59→17:25)
--- NOTE | 2021-03-12 10:35 | NURSING ---
wound photo: sacrum
[2021-03-12] MEDS: Acetaminophen 325 MG Tablet 650 MG PO (11:15)
[2021-03-12] MEDS: Losartan Potassium 100 MG Tablet PO (11:15)
[2021-03-12] MEDS: hydroCHLOROthiazide 12.5mg 12.5 MG PO (11:16)
[2021-03-12] MEDS: amLODIPine 10 MG Tablet PO (11:16)
--- NOTE | 2021-03-12 14:09 | PCM.DC.SUM ---
Providers Date of Admission: 03/06/21 Primary Care Physician: Dr. Ifeanyi Duong MD Consultations 03/06/21 18:06 Consult: Onc/Wound/manufacturing business analyst Routine Comment: Reason for Consult:: Stage IV decubitus ulcer 03/07/21 15:18 Consult: Plastic Surgery Routine Consulting Provider: Riki Aguirre Reason for Consult: coccyx wound EMERGENT Consult: No MD Notified: Yes Date Notified: 03/07/21 Time Notified: 10:00 Method of Notification: spoke on phone Reason For Visit: ACUTE CYSTITIS, STAGE IV DECUBITUS ULCER Diagnosis Discharge Diagnosis (1) Pressure ulcer of sacral region, stage 4: Status: Chronic Code(s): L89.154 - Pressure ulcer of sacral region, stage 4 (2) Acute cystitis: Status: Acute Code(s): N30.00 - Acute cystitis without hematuria Qualifiers: Hematuria presence: with hematuria Qualified Code(s): N30.01 - Acute cystitis with hematuria Medications at Discharge Home Medications hydrochlorothiazide 12.5 mg PO DAILY 06/16/18 losartan 100 mg PO DAILY 06/16/18 rosuvastatin 5 mg PO QHS 09/08/18 metformin 500 mg PO BID 04/30/20 aspirin 81 mg PO DAILY@0800 11/06/20 amlodipine 10 mg PO DAILY 01/18/21 sennosides-docusate sodium 2 tab-cap PO QHS PRN 01/18/21 oxycodone 5 mg PO Q4H PRN PRN 7 Days #15 tab 01/24/21 ciprofloxacin HCl 500 mg PO BID #14 tab 03/12/21 Hospital Course Operations - (excisional debridement of sacral decubitus ulcer, with partial ostectomy for osteomyelitis) Procedures None Summary of Care Provided Minutes Spent on Discharge: 45 Hospital Course: Patient is a 1-year-old female with an extensive past medical history as outlined below who was admitted via the ED on 03/06/2021 after her home health nurse asked her to come in on account of a possible infection of her sacral decubitus ulcer. She was noted to have increased drainage from the sacral decubitus ulcer. She completed antibiotics a couple months ago for osteomyelitis of stage IV nonhealing decubitus ulcer urinalysis done on admission was also positive for UTI. She was therefore admitted and managed for acute cystitis and for sacral decubitus ulcer which was infected. Plastic surgery was consulted. Wound care was also consulted. She was started on IV vancomycin and Rocephin. However previous blood cultures had grown Klebsiella and Pseudomonas so she was transitioned to ciprofloxacin and vancomycin. Vancomycin was eventually stopped and she was continued on ciprofloxacin. Patient had excisional debridement with ostectomy on 03/11/2021. She tolerated procedure well. Bone biopsy was sent to pathology. Results of this were pending at time of discharge. Patient remained stable and a wound VAC was applied on 03/12/2021. She was discharged home with home health and a prescription for p.o. ciprofloxacin for one week. She is to follow up at the wound care center in 2 weeks. Patient seen and examined prior to discharge. She had no complaints and wanted to go home. Review of systems otherwise negative. Labs and vitals reviewed. Home medication reviewed and reconciled. Physical Exam Const alert, oriented x3 and no apparent distress General Appearance: cooperative Exam Limitations: no limitations HEENT normocephalic, head/scalp atraumatic and moist oral mucous membranes Eyes PERRL, EOMs intact bilaterally and conjunctivae normal General Eye: normal appearance of both eyes Neck no lymphadenopathy, supple and no JVD Lymph Lymphatic: no lymphadenopathy noted Resp normal respiratory effort, normal air movement, no retractions, no use of accessory muscles and clear to auscultation bilaterally Auscultation: Negative for crackles, rales, rhonchi or wheezes Cardio regular rate, regular rhythm, S1 normal heart sound, S2 normal heart sound and no murmurs Cardio Narrative: Irregular rate and rhythm. GI normal to inspection, nondistended, normoactive bowel sounds, soft to palpation, non-tender and non-distended; Negative for hepatosplenomegaly GI Narrative: colostomy bag in place Extremity normal to inspection, full ROM and no clubbing, cyanosis or edema General Extremity: Negative for clubbing or cyanosis Skin no rashes or lesions noted Skin Narrative: wound vac in place Wounds: wounds noted size Size: 10x12 cm stage IV decubitus ulcer, bed other Part of the wound is granulating well, and part of the wound yellowish and necrotic with undermining , malodorous and No surrounding erythema Neuro oriented x3, moves all extremities, no focal motor deficits and no sensory deficits noted Sensorium / Orientation: awake and alert Speech: speech normal Motor Exam: strength 5/5 throughout Psych mental status grossly normal and affect normal Psych Narrative: Flat affect. Appearance: appropriate Weight / BMI Weight Weight: 126 lb 7.985 oz Body Mass Index (BMI) 21.0 ABG / Lab / Microbiology Data Result Diagrams: 03/12/21 06:50 03/12/21 06:50 Laboratory: Laboratory Results - last 24 hr 03/11/21 03/12/21 03/12/21 14:09 06:50 06:50 WBC 10.3 RBC 2.94 L Hgb 7.9 L Hct 25.8 L MCV 87.8 MCH 26.9 L MCHC 30.6 L RDW Std Deviation 49.0 H RDW Coeff of Mirza 15.2 H Plt Count 485 H MPV 9.2 Immature Gran % (Auto) 0.600 Neut % (Auto) 82.0 H Lymph % (Auto) 10.4 L Vance % (Auto) 5.1 Eos % (Auto) 1.5 Baso % (Auto) 0.4 Absolute Neuts (auto) 8.5 H Absolute Lymphs (auto) 1.07 Nucleated RBC % 0 ESR 84 H Sodium 132 L Potassium 4.5 Chloride 98 Carbon Dioxide 26.0 Anion Gap 8 BUN 9 Creatinine 0.34 L Estim Creat Clear Calc 46.43 Est GFR (MDRD) Af Amer 241 Est GFR (MDRD) Non-Af 199 BUN/Creatinine Ratio 26.2 H Glucose 96 Calcium 8.6 C-React Prot Ext Range 69.30 H Prealbumin 8.8 L POC Glucose 102 Microbiology: Microbiology 03/11/21 Unknown Gram Stain - Final Bone - Sacral Bone Wound Culture - Preliminary No growth-Final to follow 03/11/21 Unknown Gram Stain - Final Tissue - Sacral Wound Culture - Preliminary GNR lactose desk lieutenant Gram negative lianne 03/06/21 11:35 Blood Culture - Final Blood Culture (Wb) - Anticubital Right No growth in 5 days. 03/06/21 11:45 Blood Culture - Final Blood Culture (Wb) - Right Hand No growth in 5 days. Microbiology 03/11/21 Unknown Bone - Sacral Bone Gram Stain - Final 03/11/21 Unknown Bone - Sacral Bone Wound Culture - Preliminary No growth-Final to follow 03/11/21 Unknown Tissue - Sacral Gram Stain - Final 03/11/21 Unknown Tissue - Sacral Wound Culture - Preliminary GNR lactose desk lieutenant Gram negative lianne 03/06/21 11:35 Blood Culture (Wb) - Anticubital Right Blood Culture - Final No growth in 5 days. 03/06/21 11:45 Blood Culture (Wb) - Right Hand Blood Culture - Final No growth in 5 days. 03/11/21 09:20 Mucosa - Nose SARS-CoV-2 Antigen (Rapid) - Final 03/06/21 12:38 Ulcer, Decubitus - Buttock Gram Stain - Final 03/06/21 12:38 Ulcer, Decubitus - Buttock Wound Culture - Final Klebsiella pneumoniae sp pneum Pseudomonas aeroginosa 03/06/21 14:40 Urine, Clean Catch Urine Culture - Final Pseudomonas aeroginosa Klebsiella pneumoniae sp pneum D/C Instructions Discharge Diet: 2000 mg Sodium Diet Discharge Activity: Return to Normal Activity Weight Bearing Status: Weight bearing as tolerated Call your doctor if you observe: Fever of 101 or Higher, Shortness of breath, Swelling in the ankles and Uncontrolled pain Meaningful Use Info Meaningful Use Diagnoses (Choose all that apply): None applicable Discharge Plan Admission Admit Date/Time: 03/06/21 17:06 Primary Reason for Your Visit: infected decubitus ulcer Attending Provider: Griselda Wagner Primary Care Provider: Ifeanyi Duong Consulting Providers: Riki Aguirre Discharge Orders/Prescriptions Prescriptions: New ciprofloxacin HCl 500 mg tablet 500 mg PO BID Qty: 14 RF: 0 Continued hydrochlorothiazide 25 MG tablet 12.5 mg PO DAILY RF: 0 losartan 100 MG tablet 100 mg PO DAILY RF: 0 rosuvastatin 5 MG tablet 5 mg PO QHS RF: 0 metformin 500 MG tablet 500 mg PO BID RF: 0 aspirin 81 MG tablet,chewable 81 mg PO DAILY@0800 RF: 0 sennosides-docusate sodium 8.6-50 mg Tablet 2 tab-cap PO QHS PRN (Reason: Constipation) RF: 0 amlodipine 10 mg Tablet 10 mg PO DAILY RF: 0 oxycodone 5 mg Tablet 5 mg PO Q4H PRN PRN (Reason: pain) 7 Days Qty: 15 RF: 0 Referrals / Follow Up: Ifeanyi Duong MD [Primary Care Provider] - 03/26/21 10:20 am Riki Aguirre MD [STAFF PHYSICIAN] - Within 1 Week Disposition Disposition (needs filled in before D/C Order can be placed): Home Health Service Charges/Coding Visit Charges Inpatient E&M: 58478 Disch Hosp
--- NOTE | 2021-03-12 14:53 | CASEMGMT ---
Faxed dc summary to [facility] for resumption of care for pt.
--- NOTE | 2021-03-12 14:59 | CASEMGMT ---
Social Work Note Pt is discharging home today. CHRISSY placed a call to pt's CM Surekha and left message that pt is being discharged home today. Surekha's voicemail stated she is out of the office today and not checking messages today. CHRISSY placed a call to [facility] and left message that pt is being discharged today. CHRISSY faxed discharge paperwork to [facility]. Jennifer Newman FINANCIAL MANAGEMENT, BARREL RIFLER OPERATOR
--- NOTE | 2021-03-12 15:20 | NURSING ---
Pt switched over to the home VAC. Proof of delivery form signed and faxed back to [facility] as well as the discharge summary. pt denies further needs at this time. [employer] has been arranged at 1630 per Jennifer, front office secretary.
--- NOTE | 2021-03-12 16:16 | NURSING ---
DC INSTRUCTIONS REVIEWED W/DAUGHTER SANDRA. SHE WAS ALSO MADE AWARE OF THE NEW SKIN TEAR TO RT HAND.
--- NOTE | 2021-03-13 14:41 | CASEMGMT ---
RN NIMA Discharge Follow Up Phone Call: NIRU:16 Strata:4 Call Date: 03.13.21 Discharge Date: 03.12.21 Time of Call:[id number] Duration: 4 min Admitting Dx: stage IV decub, acute cystitis RN NIMA completed follow up phone call after recent hospitalization. Pt dtr Chloé answered the phone. She states that pt is doing well since being home. The [facility] nurse will be at pt home today with scheduled time between 2-4pm for resumption of services. The vac is working properly. Chloé states they have not yet received the w/c cushion or gel overlay. She is aware that if it does not arrive timely to notify 's office. She is aware that this was faxed in with a follow up tc. Pt has obtained her rx without difficulty. Pt has an appt with the wound center tomorrow at 10am. Chloé is aware of the appt with on 03/26/21 at 1020. Chloé denies further questions or concerns regarding pt dc instructions or medications. She thanks this RN NIMA for the call.
== END 2021-03-12 17:25 | disposition home health service (06) | DRG 628 ==
LOC: ED 17:01 → MS3 17:16
PROVIDERS: Anesthesiology; Family Medicine; Surgery; Admitting Provider Hospitalist; Emergency Provider Emergency Medicine; PCP Family Medicine; Visit Provider Student in an Organized Health Care Education/Training Program
PROC: 0QB10ZZ Excision of Sacrum, Open Approach (ICD-10-PCS; principal; 2021-03-11 11:30)
DX: E11.69 Type 2 diabetes mellitus with other specified complication (principal); L89.154 Pressure ulcer of sacral region, stage 4; E43 Unspecified severe protein-calorie malnutrition; L89.624 Pressure ulcer of left heel, stage 4; N30.00 Acute cystitis without hematuria; J96.11 Chronic respiratory failure with hypoxia; I48.20 Chronic atrial fibrillation, unspecified; M46.28 Osteomyelitis of vertebra, sacral and sacrococcygeal region; E11.52 Type 2 diabetes mellitus with diabetic peripheral angiopathy with gangrene; D62 Acute posthemorrhagic anemia; K59.00 Constipation, unspecified; I25.10 Atherosclerotic heart disease of native coronary artery without angina pectoris; E11.51 Type 2 diabetes mellitus with diabetic peripheral angiopathy without gangrene; E11.40 Type 2 diabetes mellitus with diabetic neuropathy, unspecified; I10 Essential (primary) hypertension; H91.93 Unspecified hearing loss, bilateral; E11.621 Type 2 diabetes mellitus with foot ulcer; F03.90 Unspecified dementia, unspecified severity, without behavioral disturbance, psychotic disturbance, mood disturbance, and anxiety; K21.9 Gastro-esophageal reflux disease without esophagitis; N31.9 Neuromuscular dysfunction of bladder, unspecified; B96.5 Pseudomonas (aeruginosa) (mallei) (pseudomallei) as the cause of diseases classified elsewhere; B96.1 Klebsiella pneumoniae [K. pneumoniae] as the cause of diseases classified elsewhere; E11.622 Type 2 diabetes mellitus with other skin ulcer; F17.210 Nicotine dependence, cigarettes, uncomplicated; J44.9 Chronic obstructive pulmonary disease, unspecified; E78.5 Hyperlipidemia, unspecified; Z79.84 Long term (current) use of oral hypoglycemic drugs; Z79.899 Other long term (current) drug therapy; Z93.3 Colostomy status; Z79.82 Long term (current) use of aspirin; Z86.73 Personal history of transient ischemic attack (TIA), and cerebral infarction without residual deficits; Z68.21 Body mass index [BMI] 21.0-21.9, adult; Z86.14 Personal history of Methicillin resistant Staphylococcus aureus infection
CPT/HCPCS: 36415; 71045; 74177; 80048; 80202; 81001; 82962; 83036; 83605; 84134; 85025; 85610; 85652; 85730; 86140; 87040; 87070; 87075; 87077; 87086; 87088; 87102; 87184; 87186; 87205; 87206; 87426; 87640; 88305; 88311; 93005; 94760; 96360; 96361; 97110; 97162; 97166; 97535; 97802; 97803; 99285; 99406; J7030; J7050; Q9967; A4216; J0696; J0744; J2405

== ENCOUNTER 2021-04-01 10:00 | Outpatient (RCR) | payer MEDICARE, MEDICAID, SELFPAY ==
[2021-02-12 00:31] VITALS: BP 136/68; PULSE 104; RESP 16; TEMP 36.1
--- NOTE | 2021-02-18 16:13 | WC ---
Spoke to Alessandra at [facility] who states she admitted her over the weekend for home care and she found patient's ulcer to have worsen with bright green drainage and a dark maroon area/bruise like area to periulcer. Alessandra stated that she has been taking her oxygen off during the day and leaving it off to smoke. It has caused the wound bed to appear dusky and less beefy red. Dr Aguirre was notified and stated that if the ulcer continues to worsen or patient becomes symptomatic with infection, to send patient to the ER for evaluation. Alessandra will forward this to the home nurses and verbalized understanding.
[2021-03-11 09:27] VITALS: BMI 21.0
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
[2021-04-01 08:43] VITALS: BP 141/110; PULSE 125; RESP 18; TEMP 36.2; BMI 21.0
--- NOTE | 2021-04-01 10:21 | PN.PCM_ITS ---
History of Present Illness Date of Service: 04/01/21 Chief Complaint: Sacral pressure sore, Stage IV. History of Wound: Surgery 03/11/21 - Excision necrotic sacral pressure sore, Stage IV, with partial ostectomy for osteomyelitis. Wound care - VAC. Operative cultures - E. coli, Pseudomonas aeroginosa, Methicillin resistant Staph, and Clostridium clostridioforme in the soft tissue, and Enterococcus faecalis in the bone. She was discharged on Cipro. The Pseudomonas is resistant to the Cipro. Operative Pathology - positive for acute osteomyelitis. Prealbumin from 03/12/21 was 8.8. Encourage nutritional supplementation with protein to help the healing process. HgbA1c from 03/11/21 was 5.4. Today she denies fever. Her appetite is ok. Progress of Wound: Patient had recent surgery on 03/11/21. Objective Data Objective Data Vital Signs: Vital Signs Temp Pulse Resp BP 97.1 F L 125 H 18 141/110 H 04/01/21 08:43 04/01/21 08:43 04/01/21 08:43 04/01/21 08:43 Oxygen Delivery Method Room Air Body Mass Index (BMI) 21.0 Charges/Coding Addendum Addendum: Wound Center Visit CPT - No charge. The patient is being admitted to the hospital for IV antibioti cs. ICD-10 - L89.154, I96, M86.9, A49.8, Z86.14, E11.9, F17.200 Debridement Note Debridement Note Post-Debridement Measurements and Additional Note: Post-Debridement Measurements/Treatment - Nurse 1 - General Ulcer Assessment Start: 04/01/21 08:42 Freq: Status: Active Protocol: [email or web address] Activity Type Activity Date Activity User E-Sign Co-Sign Detail Recorded Client Recorded Date Recorded By Document 04/01/21 08:43 RAVEN [id number] 04/01/21 08:46 ARVEN 04/01/21 08:43 - Today's Visit Information Type of service Follow-up Visit (Physician/POWER SAW MECHANIC ) Arrival Mode Stretcher Transfer Assistance None Patient Identification Verified (Name & Yes ) Patient Requires Transmission-Based No Precautions Height and Weight Body Mass Index (BMI) 21.0 BMI Classification Normal Vital Signs Temperature (97.8 F-99.1 F) 97.1 F L Temperature Source Temporal Pulse Rate (60-100) 125 H Pulse Location Monitor Respiratory Rate (12-18) 18 Respiratory rate source Observation Oxygen Delivery Method Room Air Blood Pressure (90/60-120/80) 141/110 H Blood Pressure Mean (mm Hg) 120 Source Monitor Position Supine - Nurse 1 - General Ulcer Measurement Start: 04/01/21 08:42 Freq: Status: Active Protocol: Activity Type Activity Date Activity User E-Sign Co-Sign Detail Recorded Client Recorded Date Recorded By Document 04/01/21 08:43 RAVEN [id number] 04/01/21 08:46 RAVEN 04/01/21 08:43 Wound Center Nurse 1 #4- SACRAL -Combined with other wound No -Current Size (cm) - Length 8.5 -Current Size (cm) - Width 16 -Current Size (cm) - Depth 2.2 -Total Square Cm 136.0 -Date of Last Picture (Recall this 04/01/21 field) -Photo Taken Yes -Epithelialization None Present -Tunneling No -Undermining/Tunneling No -Circular Undermining No -Exudate Amt Large -Exudate Type Serosanguineous -Wound Margin Distinct, Outline Attached -Granulation Amt Large (67-100%) -Granulation Quality Red -Slough/Fibrin Yes -Necrosis Amt Medium (34-66%) -Necrotic Tissue Type Adherent Slough -Texture (Rachana-wound Skin Appearance) Assessed, Scarring -Moisture (Rachana-wound Skin Appearance) Assessed -Color (Rachana-wound Skin Appearance) Assessed -Temperature (Rachana-wound Skin No Abnormality Appearance) (Pt Warm) -Tenderness on Palpation (Rachana-wound Yes Skin Appearance) -Ulcer Cleansing soapy water -Foul Odor after Cleansing No -Anesthetic Used 4% Lidocaine Solution - Nurse 2 - General Ulcer CM Notes Start: 04/01/21 08:42 Freq: Status: Active Protocol: Activity Type Activity Date Activity User E-Sign Co-Sign Detail Recorded Client Recorded Date Recorded By Document 04/01/21 09:01 JULIO C [id number] 04/01/21 09:25 JULIO C 04/01/21 09:01 Wound Center Nurse 2 -Time 09:22 -Correct Patient Yes -Correct Side, Site, Position Yes -Correct Procedure Yes -Procedure Performed Yes -Type of Procedure Debridement -Clinical Debridement Muscle / Fascia -Tissue Removed Muscle,Fascia -Post Debridement (cm) - Length 8.6 -Post Debridement (cm) - Width 16.1 -Post Debridement (cm) - Depth 2.2 -Total Square (Post) (cm) 138.46 -Area of Debridement (cm) - Length 8.6 -Area of Debridement (cm) - Width 16.1 -Total Square (Area) (cm) 138.46 -Tunneling No -Undermining/Tunneling No -Circular Undermining No -Wound/Ulcer Outcome Not Healed -Ulcer Cleansing Rinsed/ Irrigated with Saline -Foul Odor after Cleansing No -Bioengineered Tissue No -Bleeding Controlled with Pressure -Offloading No -Treatment Response Procedure Tolerated Well -Debridement - Muscle / Fascia, 1st Yes 20sq cm -Debridement, Muscle/Fascia, ea addt'l 6 20sq cm or part thereof Pain Scale: 0-10 Numeric Is Patient Pain Free? Yes - Nurse 3 - General Ulcer D/C NN Start: 04/01/21 08:42 Freq: Status: Active Protocol: Activity Type Activity Date Activity User E-Sign Co-Sign Detail Recorded Client Recorded Date Recorded By Document 04/01/21 09:25 [id number] 04/01/21 09:25 04/01/21 09:25 Wound Care Nurse 3 #4- SACRAL -Ulcer Cleansing Rinsed/ Irrigated with Saline -Foul Odor after Cleansing No -Other Dressing wet to dry with normal saline -Primary Dressing Covered/Secured with Dry Gauze, Secured with Tape Pain Scale: 0-10 Numeric Is Patient Pain Free? Yes - Visit Discharge Discharge Condition Stable Ambulatory Status Stretcher Transportation Ambulance Medication Reconcilliation completed & Yes provided to patient/care provider Clinical Summary of Care Provided Yes Notes: direct admit to [facility] for PICC placement. Wound debrided: #4 Sacral area. Laterality: Not Applicable Wound Grade/Stage: IV. Type of Debridement: Excisional debridement Anesthesia Used: 4% Lidocaine Solution Depth: Down to and including healthy tissue, in the subcutaneous layer, to muscle and to bone (bone is exposed but not debrided.) Percentage of wound debrided: 100 Instrument Used: 7mm curette Tissue Removed: subcutaneous tissue and muscle. Severity: Fat Layer Exposed (muscle is exposed. bone is exposed but not debrided.) Amount of bleeding with debridement: Mild Bleeding Controlled with: Compression and gauze Patient tolerated procedure: Patient tolerated procedure well Assessment/Plan Assessment/Plan (1) Pressure ulcer of sacral region, stage 4: CODE(S): L89.154 - Pressure ulcer of sacral region, stage 4 (2) Skin necrosis: CODE(S): I96 - Gangrene, not elsewhere classified (3) Osteomyelitis of pelvic region: CODE(S): M86.9 - Osteomyelitis, unspecified (4) Pseudomonas aeruginosa infection: CODE(S): A49.8 - Other bacterial infections of unspecified site (5) History of MRSA infection: CODE(S): Z86.14 - Personal history of Methicillin resistant Staphylococcus aureus infection (6) Type II diabetes mellitus: CODE(S): E11.9 - Type 2 diabetes mellitus without complications (7) Smoker: CODE(S): F17.200 - Nicotine dependence, unspecified, uncomplicated PLAN: Patient underwent surgery on 03/11/20 where she underwent excision necrotic sacral pressure sore, Stage IV, with partial ostectomy for osteomyelitis. She was discharged the next day with the VAC on Ciprofloxacin antibiotics. The final cultures showed E. coli, Pseudomonas aeroginosa, Coag Negative Staph, Methicillin resistant, and Clostridium clostridioforme in the soft tissue and Enterococcus faecalis in the bone. Pathology was positive for acute osteomyelitis. The Ciprofloxacin was resistant to the Pseudomonas and does not cover for Enterococcus. It was recommended to the patient to be admitted to the hospital at this time for placement of a PICC line and to begin IV antibiotics with Meropenem. Will also need Zyvox which can be given po. She can be discharged when the arrangements have been made with the infusion company for the antibiotics. Continue the VAC while hospitalized. Anticipate up to 6 weeks IV antibiotics. Will check labs weekly (CBC, CMP, ESR, CRP). Patient was in agreement with the plan. Encouraged patient to stop smoking as it may have deleterious effects on wound healing. Prealbumin from 03/12/21 was 8.8. Encourage nutritional supplementation with protein to help the healing process. HgbA1c from 03/11/21 was 5.4. Followup one week.
== END 2021-04-13 23:59 ==
LOC: WC 10:00
PROVIDERS: PCP Family Medicine; Visit Provider Nurse Practitioner Family
DX: L89.154 Pressure ulcer of sacral region, stage 4 (principal); E11.52 Type 2 diabetes mellitus with diabetic peripheral angiopathy with gangrene; E11.69 Type 2 diabetes mellitus with other specified complication; M86.8X8 Other osteomyelitis, other site; Z86.14 Personal history of Methicillin resistant Staphylococcus aureus infection; F17.200 Nicotine dependence, unspecified, uncomplicated; Z86.19 Personal history of other infectious and parasitic diseases
CPT/HCPCS: 11043; 11046

== ENCOUNTER 2021-04-01 16:43 | Inpatient (IN) | payer MEDICARE, MEDICAID, SELFPAY ==
[2021-04-01 08:43] VITALS: BMI 21.0
[2021-04-01 10:38] VITALS: RESP 18; BMI 21.0
[2021-04-01 10:45] VITALS: BP 93/48; PULSE 104; RESP 18; TEMP 36.9; O2SAT 90
--- NOTE | 2021-04-01 11:31 | PCM.HP.BLA ---
History and Physical Date of Admission: 04/01/21 Assessment & Plan Assessment/Plan (1) Pressure ulcer of sacral region, stage 4: (2) Skin necrosis: (3) Osteomyelitis of pelvic region: (4) Type II diabetes mellitus: (5) History of MRSA infection: (6) Smoker: PLAN: CONTINUE SPECIALTY BED, LOW AIR LOSS. CONTINUE IV ANTIBIOTICS WITH VANCOMYCIN AND ROCEPHIN. INITIAL WOUND CULTURE SHOWED GNR POSSIBLE PSEUDOMONAS. CIPRO WILL BE ADDED. CONTINUE DAKIN'S DRESSING CHANGES TO THE NECROTIC SACRAL PRESSURE SORE. THE SACRAL PRESSURE SORE HAS SOME UNDERMINING WITH DRAINAGE AND TENDERNESS AND WORSENING NECROSIS LATERALLY. RECOMMEND TO THE PATIENT TO PROCEED WITH FURTHER EXCISION OF THE NECROTIC SACRAL PRESSURE SORE ALONG WITH PARTIAL OSTECTOMY FOR OSTEOMYELITIS. SOFT TISSUE AND BONE WILL BE SENT TO PATHOLOGY FOR ANALYSIS TO EVALUATE FOR OSTEOMYELITIS. SOFT TISSUE AND BONE WILL BE SENT TO MICROBIOLOGY FOR CULTURE. A POSITIVE CULTURE WILL NECESSITATE ANTIBIOTIC THERAPY. AFTER SURGERY WILL CHANGE WOUND CARE TO THE VAC TO BE CHANGED THREE TIMES PER WEEK AT 150 MMHG CONTINUOUS SUCTION. ANTICIPATE INCREASED METABOLIC DEMANDS FROM THE INFECTION. WILL CHECK A PREALBUMIN AND ENCOURAGE NUTRITIONAL SUPPLEMENTATION WITH PROTEIN TO HELP THE HEALING PROCESS. I HAVE CONCERNS ABOUT THE PATIENT RETURNING HOME AFTER THE SURGERY BECAUSE OF THE RAPIDITY IN THE WORSENING OF THIS PRESSURE SORE. THEY HAVE PALLIATIVE CARE AT THE PRESENT TIME. STRONG CONSIDERATION SHOULD BE GIVEN FOR HOSPICE CARE. THE PRESSURE SORE IS QUITE LARGE AND HEALING WILL NOT OCCUR BECAUSE OF THE INCREASED METABOLIC DEMANDS DUE TO THE LARGE SIZE OF THE PRESSURE SORE. ANY CHANCE OF HEALING WILL NECESSITATE A FEEDING TUBE TO MAXIMIZE NUTRITION. THE PATIENT IS NOT INTERESTED IN A FEEDING TUBE. I WILL BE OUT OF TOWN FOR THE NEXT COUPLE OF DAYS. WILL PROCEED WITH THE SURGERY ON THURSDAY UNDER GENERAL ANESTHESIA. AFTER DISCHARGE, CAN FOLLOWUP AT THE WOUND CENTER. Patient was informed of the risks and complications of the procedure including alternatives to surgery. These were discussed with the patient personally. Patient voices understanding and wishes to proceed. Encouraged patient to stop smoking as it may have deleterious effects on wound healing. We discussed the current risks associated with COVID-19. While it is understood that there is a community spread of COVID-19, the risk of corey COVID-19 while at [facility] ([facility]) is very low; however, the risk cannot be completely mitigated because of the community spread of the disease. We discussed in detail the risk of exposure to and/or potential harm posed by the COVID-19 virus with having a surgery/procedure at this time versus the risk of delaying the surgery/procedure. It is not possible to know either the risk of delaying the surgery or procedure or chance of getting an infection with perfect accuracy, but a joint decision was made to proceed at this time with the scheduled surgery/procedure as indicated on the consent form. Patient was notified that we will need to comply with any screening or testing [facility] wishes to perform or that surgery may be delayed for any positive results. HPI Consult Data Date of Consult: 03/10/21 PCP / Referring MD: Dr. Ifeanyi Duong MD Attending Care Provider: Dr. Kingston Leon MD DELIVERY TRUCK DRIVER: Dr. Aguirre. HPI Narrative Reason for Consultation: Worsening sacral pressure sore, Stage IV, with necrosis. HPI Narrative: 70 YEAR OLD WOMAN WAS ADMITTED FOR ACUTE CYSTITIS AND WORSENING OF HER SACRAL PRESSURE SORE, STAGE IV. SHE HAD UNDERGONE AN EXCISION OF THE SACRAL PRESSURE SORE BACK IN October,. SHE ALSO HAD OSTEOMYELITIS. SHE WAS TREATED WITH ANTIBIOTICS AND WOUND CARE. THERE WERE ISSUES WITH STOOL CONTAMINATION AND A DIVERTING COLOSTOMY WAS DONE. SHE HAD BEEN AT [facility] AND WAS RECENTLY DISCHARGED HOME ABOUT 3 WEEKS AGO. SINCE THEN THERE WAS INCREASING DRAINAGE AND ODOR COMING FROM THE SACRAL PRESSURE SORE WELL WORSENING NECROSIS. SHE WAS STARTED ON VANCOMYCIN AND ROCEPHIN. WBC WAS 10.0. DAKIN'S DRESSING CHANGES WERE STARTED. I WAS ASKED TO EVALUATE THIS PATIENT FOR SURGICAL OPTIONS FOR TREATMENT. FORMERLY [facility] Medical History Atrial fibrillation CAD (coronary artery disease) Chronic indwelling [place] catheter Chronic neck pain Chronic ulcer of left heel with fat layer exposed Colostomy in place Decubitus ulcer of left heel, stage 4 Dementia Depression Dysphagia following cerebrovascular accident (CVA) GERD (gastroesophageal reflux disease) Gout History of MRSA infection History of pressure ulcer Intertrochanteric fracture of left hip Left humeral fracture Neurogenic bladder On home oxygen therapy Osteoporosis PAD (peripheral artery disease) Stroke/cerebrovascular accident Tobacco abuse Type II diabetes mellitus Vitamin D deficiency Home Medications hydrochlorothiazide 12.5 mg PO DAILY 06/16/18 [History Last Taken 02/11/19] losartan 100 mg PO DAILY 06/16/18 [History Last Taken 01/21/21] rosuvastatin 5 mg PO QHS 12/26/18 [History Last Taken 02/11/19] metformin 500 mg PO BID 04/30/20 [History Last Taken Unknown] aspirin 81 mg PO DAILY@0800 11/06/20 [History Last Taken Unknown] amlodipine 10 mg PO DAILY 01/18/21 [History Last Taken 01/21/21] sennosides-docusate sodium 2 tab-cap PO QHS PRN 01/18/21 [History Last Taken Unknown] oxycodone 5 mg PO Q4H PRN PRN 7 Days #15 tab 01/24/21 [Rx Last Taken 01/25/21 23:00] Allergy/AdvReac Type Severity Reaction Status Date / Time amoxicillin [From Augmentin] Allergy Rash Verified 03/06/21 11:20 atorvastatin [From Lipitor] Allergy Other Verified 03/06/21 11:20 clavulanic acid Allergy Rash Verified 03/06/21 11:20 [From Augmentin] gabapentin Allergy Nausea Verified 03/06/21 11:20 lisinopril Allergy PT UNSURE Verified 03/06/21 11:20 OF REACTION mold Allergy PT UNSURE Verified 03/06/21 11:20 OF REACTION pollen extracts Allergy PT UNSURE Verified 03/06/21 11:20 OF REACTION quinapril [From Accupril] Allergy Rash Verified 03/06/21 11:20 ragweed pollen Allergy PT UNSURE Verified 03/06/21 11:20 OF REACTION simvastatin [From Zocor] Allergy PT UNSURE Verified 03/06/21 11:20 OF REACTION tramadol Allergy PT UNSURE Verified 03/06/21 11:20 OF REACTION tuberculin, purified protein Allergy PT UNSURE Verified 03/06/21 11:20 deriva OF REACTION fluoxetine AdvReac Other Verified 03/06/21 11:20 Family History Mother Tuberculosis Father Heart disease CVA (cerebral vascular accident) Sister Multiple sclerosis Brother Heart disease Surgical History History of appendectomy History of lumpectomy of right breast History of partial hysterectomy History of right-sided carotid endarterectomy Hx of bladder repair surgery Hx of tonsillectomy Social History Smoking Status: Current every day smoker tobacco type: cigarettes Tobacco: How many years used: 53 second hand exposure: Yes alcohol intake: never substance use type: does not use caffeine: Yes what type of physical activity do you participate in: none frequency: does not exercise ROS ROS Narrative REVIEW OF SYSTEMS General - Denies fever, fatigue, and weight loss. Eyes - Denies cataracts and glaucoma. ENT - Denies nasal congestion and sore throat. Endocrine - Denies excessive thirst and urination. Skin - Denies suspicious lesions and skin cancer. Musculoskeletal - Denies joint pain, joint stiffness, weakness of muscles and joints, back pain, and arthritis. Neuro - Denies headaches. Cardiovascular - Denies chest pain, fatigue, and shortness of breath with exertion. Psych - Denies anxiety and depression. Respiratory - Denies chronic cough and shortness of breath. Gastrointestinal - Denies nausea, vomiting, diarrhea, and constipation. Hematologic - Denies abnormal bruising and bleeding. Genitourinary - Denies hematuria and urinary frequency. Physical Exam Narrative PHYSICAL EXAMINATION General - Alert and Oriented HEENT - PERRL. EOMI. Throat is clear. Neck - Supple and nontender. No cervical adenopathy. Lungs - Clear to auscultation. Heart - Regular rate and rhythm. Abdomen - Soft and nondistended. Extremities - FROM. No axillary adenopathy. Radial pulses are palpable. Lower back - There is a worsening sacral pressure sore with necrotic extension laterally. Some granulation tissue is present medially. Where the necrotic tissue is located, there is some undermining. There is tenderness to palpation. Some greenish drainage noted. Measures 15 X 8 cm. Neuro - CN II-XII grossly intact. Psych - Normal mood and affect. Lab / Micro Data Result Diagrams: 03/09/21 14:33 document embedded image 03/09/21 14:33 document embedded image Labs:Laboratory Results - last 24 hr 03/06/21 03/07/21 03/07/21 11:35 03:08 05:40 WBC 10.0 RBC 3.64 L Hgb 9.9 L Hct 32.0 L MCV 87.9 MCH 27.2 MCHC 30.9 L RDW Std Deviation 49.5 H RDW Coeff of Mirza 15.5 H Plt Count 730 H MPV 9.5 Immature Gran % (Auto) 0.300 Neut % (Auto) 74.1 H Lymph % (Auto) 14.[address] [place] % (Auto) 8.2 Eos % (Auto) 2.0 Baso % (Auto) 0.5 Absolute Neuts (auto) 7.4 Absolute Lymphs (auto) 1.49 Nucleated RBC % 0 Diff Path Review Reviewed Sodium Potassium Chloride Carbon Dioxide Anion Gap BUN Creatinine Estim Creat Clear Calc Est GFR (MDRD) Af Amer Est GFR (MDRD) Non-Af BUN/Creatinine Ratio Glucose Calcium POC Glucose 114 H 03/07/21 05:40 WBC RBC Hgb Hct MCV MCH MCHC RDW Std Deviation RDW Coeff of Mirza Plt Count MPV Immature Gran % (Auto) Neut % (Auto) Lymph % (Auto) [place] % (Auto) Eos % (Auto) Baso % (Auto) Absolute Neuts (auto) Absolute Lymphs (auto) Nucleated RBC % Diff Path Review Sodium 135 L Potassium 4.0 Chloride 101 Carbon Dioxide 29.0 Anion Gap 5 BUN 8 Creatinine 0.33 L Estim Creat Clear Calc 46.43 Est GFR (MDRD) Af Amer 249 Est GFR (MDRD) Non-Af 205 BUN/Creatinine Ratio 24.0 H Glucose 91 Calcium 9.2 POC Glucose Micro:Microbiology 03/06/21 14:40 Urine Culture - Preliminary Urine, Clean Catch GNR Poss Pseudomonas sp Gram negative lianne 03/06/21 12:38 Gram Stain - Final Ulcer, Decubitus - Buttock Wound Culture - Preliminary Gram negative lianne GNR Poss Pseudomonas sp CT/Abdomen/Pelvis WITH Contrast IMPRESSION: No evidence of bowel obstruction. Presacral inflammatory changes in the pelvis of unclear significance. One possible etiology could be proctitis. Recommend clinical correlation. Chronic compression fractures in the lumbar spine, some of which are status post vertebroplasty. Electronically Signed: Luis F Izquierdo MD at 21:49 EDT Tel , Service support , Procedure Criteria Type of Procedure Procedure Type: Elective Elective Risks - COVID COVID Risk Discussion: The surgeon/proceduralist and patient have discussed in detail the risk of exposure to and/or potential harm posed by the COVID-19 virus with having a surgery/procedure at this time versus the risk of delaying the surgery/procedure. It is not possible to know either the risk of delaying the surgery or procedure or chance of getting an infection with perfect accuracy, but a joint decision was made between the patient and the surgeon/proceduralist to proceed at this time with the scheduled surgery/procedure as indicated on the consent form.
--- NOTE | 2021-04-01 12:11 | CASEMGMT ---
Social Work Note CHRISSY received call from Riki with [facility] inquiring if pt is observation and what pt is admitted for. CHRISSY reviewed chart, answered questions. CHRISSY updated RN CM that pt is active with [facility]. Jennifer Newman CLINIC ADMINISTRATOR, WAIST PRESSER
[2021-04-01] MEDS: Lactated Ringers 1,000 ML 60 ML IV (13:00)
[2021-04-01 13:16] LABS: Bedside Glucose 103 mg/dL (70-110)
[2021-04-01 13:56] LABS: Hematocrit 32.2 % (37-47); Hemoglobin 9.3 g/dL (12.0-15.0); Mean Corp Hgb Conc 28.9 g/dL (32-36); Mean Corpuscular Hgb 25.6 pg (27.0-32.0); Mean Corpuscular Volume 88.7 fL (81-99); Mean Platelet Vol. 9.4 fl (6.2-12.0); Platelet Count 482 K/mm3 (150-450); RBC Distribution Width CV 15.8 % (11.6-14.6); RBC Distribution Width SD 51.4 fl (35.1-43.9); Red Blood Count 3.63 M/mm3 (4.2-5.4); White Blood Count 7.9 K/mm3 (4.4-11.0)
--- NOTE | 2021-04-01 13:56 | NURSING ---
PT PLACED O2 O2 2L NC
[2021-04-01 14:19] LABS: ALB/GLOB Ratio 0.6 RATIO (0.9-2.4); AST(SGOT) 9 U/L (15-37); Alanine Aminotransfer ALT/SGPT 9 U/L (13-56); Albumin, Serum 2.2 g/dL (3.2-5.0); Alkaline Phosphatase 105 U/L (45-117); Anion Gap 5 (5-15); BUN 14 mg/dL (7-18); BUN/Creat Ratio 43.9 RATIO (10-20); Chloride 98 mmol/L (98-107); Creatinine, Serum 0.32 mg/dL (0.55-1.02); EST Glomerular Filtration Rate 217 mL/min (>60); Est Glom Filt Rate - Afr Amer 262 mL/min (>60); Estimated Creatinine Clearance 46.43 ml/min; Globulin 3.9 g/dL (2.2-4.2); Glucose 94 mg/dL (74-106); Potassium 4.1 mmol/L (3.5-5.1); Prealbumin 10.8 mg/dL (20.0-40.0); Protein, Total 6.1 g/dL (6.4-8.2); Sodium Level 132 mmol/L (136-145)
--- NOTE | 2021-04-01 15:08 | NURSING ---
PICC insertion site has some bleeding post op. Applied gauze with pressure under CHG dressing. Please change dressing prior to discharge and remove gauze.
--- NOTE | 2021-04-01 15:09 | RAD_ITS ---
STUDY: X-RAY CHEST REASON FOR EXAM: Female, 70 years old. Confirm picc line placement TECHNIQUE: Single AP portable view of the chest. COMPARISON: Comparison is made with prior study dated 03/06/2021. FINDINGS: The tip of the right PICC line catheter is at the junction of the right subclavian vein and superior vena cava. Scattered calcified granulomas. There is no demonstrated pleural abnormality. Normal size heart. There are calcified mediastinal lymph nodes. Normal visualized pulmonary arteries. There is atherosclerotic calcification of the aortic arch with tortuosity. Prior vertebroplasty of the L1 and L2 vertebrae. Normal visualized ribs, clavicles, and shoulders. There is no demonstrated abnormality of the visualized soft tissue structures of the upper abdomen. RAD/CXR for Line Placement IMPRESSION: The tip of the right PICC line catheter is at the junction of the right subclavian vein and superior vena cava. Electronically Signed: Erick Damico MD at 15:37 EDT , Service support ,
--- NOTE | 2021-04-01 15:39 | NURSING ---
wound photo: sacrum
--- NOTE | 2021-04-01 15:44 | NURSING ---
Colostomy appliance coming loose. this nurse noticed the date on the appliance was 03/12/21. this is when patient was last in the hospital and the appliance was changed by this nurse at that time. removed appliance. there was a moderate amount of formed stool noted in the appliance. the peristomal skin is intact. cleansed the skin with warm water. pat dry. applied a new 2 piece flat Chencho appliance with a small amount of stoma paste. pt tolerated well. will discuss with CM to be sure home health is aware that appliance needs to be changed 1-2 times a week.
--- NOTE | 2021-04-01 15:54 | NURSING ---
LATE ENTRY - [id number] - FILIPPO PAUSED FOR PICC LINE PLACEMENT
--- NOTE | 2021-04-01 16:21 | CASEMGMT ---
Addendum entered by Yaneth Muniz 04/01/21 16:39: SCOOBY HERRING called Madhu from [facility] in which pt is active with. He states if pt goes home on IV antibiotics, they are not able to take her back. States is unwilling to learn any care and dtr is not present when she states she will be. SCOOBY HERRING to follow up in the morning with pt and family. Original Note: SCOOBY HERRING called as pt received picc line to verify home IV antibiotics. Pt probable dc on meropenem. SCOOBY HERRING in to pt room to discuss options of infusion companies. Pt did not answer her preference, although kept asking if she can go home. SCOOBY HERRING called pt MAGOMOE Luevano who was provided list of local in network companies verbally. She states she prefers [facility] as this is where their homecare is coming from. Prior to this phone call SCOOBY HERRING was made aware by Kimberly Desouza ostomy nurse that pt appliance was dated 03/12/21. Dtr states she cleans the bag weekly but was told by [facility] nurse that the whole appliance does not need changed if it is adhering. Made dtr aware of possible skin breakdown underneath appliance and need for this to be changed and cleansed. She states she will do this going forward. She also states that they are interested in feeding tube at this time. Notified Zayda charge nurse of this information. TC to [facility], spoke with Yosef, referral info faxed at this time for possible dc tomorrow.
--- NOTE | 2021-04-01 16:45 | NT.THERAPY_ITS ---
Medical Nutrition Therapy - History Nutrition Services has been consulted to:: Manage nutrient details of diet order Current diet/nutrition support order:: Carbohydrate controlled diet. Romie orange flavor 1 pkt BID. - Anthropometric Measurements Height:: 5 ft 5 in Weight:: 57.323 kg Body Mass Index (BMI):: 21.0 - Relevant Labs Relevant Labs:: RBC 3.63 M/mm3 (4.2-5.4) L 04/01/21 13:45 Hgb 9.3 g/dL (12.0-15.0) L 04/01/21 13:45 Hct 32.2 % (37-47) L 04/01/21 13:45 MCH 25.6 pg (27.0-32.0) L 04/01/21 13:45 MCHC 28.9 g/dL (32-36) L 04/01/21 13:45 RDW Std Deviation 51.4 fl (35.1-43.9) H 04/01/21 13:45 RDW Coeff of Mirza 15.8 % (11.6-14.6) H 04/01/21 13:45 Plt Count 482 K/mm3 (150-450) H 04/01/21 13:45 Sodium 132 mmol/L (136-145) L 04/01/21 13:45 Creatinine 0.32 mg/dL (0.55-1.02) L 04/01/21 13:45 BUN/Creatinine Ratio 43.9 RATIO (10-20) H 04/01/21 13:45 AST 9 U/L (15-37) L 04/01/21 13:45 ALT 9 U/L (13-56) L 04/01/21 13:45 C-React Prot Ext Range 37.90 mg/L (0.0-3.0) H 04/01/21 13:45 Total Protein 6.1 g/dL (6.4-8.2) L 04/01/21 13:45 Albumin 2.2 g/dL (3.2-5.0) L 04/01/21 13:45 Albumin/Globulin Ratio 0.6 RATIO (0.9-2.4) L 04/01/21 13:45 Prealbumin 10.8 mg/dL (20.0-40.0) L 04/01/21 13:45 - Assessment Food and Nutrient Intake: Pt appears to be [place]. Pt reports that she has a decrease in appetite. Pt reports that she lost weight without trying. Per EMR pt's weight on 01/24/21 was 164# and CBW is 126# representing 38#/23% weight loss x2 months. Physical exam findings as follows: severe muscle and fat wasting of clavicle and thigh/patellar regions. Pt has type II diabetes as is taking metformin. No recent HgbA1c to assess. - Nutrition Diagnosis: Intake Problem Increased Nutrient Needs (specify) Intake Problem - Etiology: (protein) r/t wounds Intake Problem - Signs/Symptoms: as evidenced by stage 4 pressure ulcer of sacral region. Status: Active Problem - Nutrition Diagnosis: Clinical Problem Chronic Disease or Condition Related Malnutrition Clinical Problem - Etiology: severe malnutrition r/t inadequate oral intake w/ increased nutrient needs d/t wounds Clinical Problem - Signs/Symptoms: as evidenced by pt report of decrease in appetite, estimated energy intake meeting </=75% if energy requirements, wt loss of 28#/23% x2 months and physical findings of severe muscle and fat wasting of clavicle region and thigh/patellar region. Status: Active Problem - Protein Calorie Malnutrition Evidence of Malnutrition Exists: Yes Severe Protein Calorie Malnutrition:: Chronic - Nutrition Intervention Nutrition Prescription: 1,500-1,600kcal/day (RMR x 1.3). Protein 68-85 g/day (1.2-1.5g/kg). Fluid 1,700-1,800mL/day (30mL/kg) - Food / Nutrient Delivery Interventions Summary of nutrition intervention:: Adjust diet order, Provide oral nutrition supplement Nutrition support ordered as / adjusted to:: Will liberalize diet to regular/general d/t signs and symptoms of malnutrition. Continue Romie 1 pkt BID. Add glucerna shake 120mL PO 4x/day at [place]. Nutrition education provided?: No - MNT Monitoring Active Nutrition Patient: Yes Nutrition Status: Requires Follow Up 3-5 Days - please call RD/LD if questions/concerns at [phone]
[2021-04-01 16:47] VITALS: BMI 21.0
--- NOTE | 2021-04-01 16:59 | RAD_ITS ---
STUDY: X-RAY CHEST REASON FOR EXAM: Female, 70 years old. PICC line verification TECHNIQUE: Single AP portable view of the chest. COMPARISON: April 01, 2021 at 3:12 PM FINDINGS: Right side PICC line tip terminates in the proximal SVC. There is hyperinflation of the lungs consistent with chronic obstructive lung disease (COPD). There is no demonstrated pleural abnormality. Normal size heart. There are calcified mediastinal lymph nodes. Normal visualized pulmonary arteries. There is atherosclerotic calcification of the aortic arch with tortuosity. Stable structures. A healed fracture deformity of the left humeral head neck junction is visualized. There is no demonstrated abnormality of the visualized soft tissue structures of the upper abdomen. RAD/CXR for Line Placement IMPRESSION: No acute process Electronically Signed: Madhu Orellana MD at 19:01 EDT , Service support ,
[2021-04-01 17:00] VITALS: BP 126/89; PULSE 101; RESP 18; TEMP 36.7; O2SAT 95
[2021-04-01] MEDS: metFORMIN (XR) 500 MG Tablet PO (17:31)
[2021-04-01] MEDS: Glucerna Shake 120 ML LIQUID PO ×2 (17:33→20:22)
--- NOTE | 2021-04-01 17:35 | NURSING ---
Previous PICC placed earlier today,however, xray results show tip is malpositiioned. Unable to reposition. Replaced with new PICC. See xray results
[2021-04-01 17:44] LABS: Erythrocyte Sedimentation Rate 97 mm/hr (0-30)
[2021-04-01] MEDS: oxyCODONE 5 MG Tablet 10 MG PO (19:32)
[2021-04-01 19:50] VITALS: BP 141/68; PULSE 102; RESP 18; TEMP 36.9; O2SAT 100
[2021-04-01 20:00] VITALS: O2SAT 100
[2021-04-01] MEDS: Rosuvastatin Calcium 5 MG Tablet PO (20:16)
[2021-04-01] MEDS: Docusate Sodium 100 MG Capsule PO (20:16)
[2021-04-01] MEDS: Linezolid 600 MG Tablet PO (20:17)
[2021-04-01 22:26] LABS: Bedside Glucose 117 mg/dL (70-110)
[2021-04-01] MEDS: Acetaminophen 500 MG Tablet PO (23:04)
[2021-04-02] VITALS (7 sets, daily range): BP systolic 94–131; BP diastolic 54–76; PULSE 85–101; RESP 18; TEMP 36.1–36.9; O2SAT 97–100
[2021-04-02] MEDS: oxyCODONE 5 MG Tablet 10 MG PO ×4 (01:48→22:17)
[2021-04-02] MEDS: Enoxaparin 40 MG/0.4 ML Syringe SC (05:42)
[2021-04-02 06:31] LABS: Bedside Glucose 97 mg/dL (70-110)
[2021-04-02] MEDS: Lactated Ringers 1,000 ML 60 ML IV (09:30)
[2021-04-02] MEDS: Docusate Sodium 100 MG Capsule PO ×2 (09:31→22:02)
[2021-04-02] MEDS: Glucerna Shake 120 ML LIQUID PO ×4 (09:31→22:17)
[2021-04-02] MEDS: Linezolid 600 MG Tablet PO ×2 (09:31→22:02)
[2021-04-02] MEDS: metFORMIN (XR) 500 MG Tablet PO ×2 (09:31→17:15)
[2021-04-02] MEDS: Aspirin 81 MG TAB.CHEW PO (09:31)
[2021-04-02] MEDS: Acetaminophen 500 MG Tablet PO (10:00)
--- NOTE | 2021-04-02 10:06 | CASEMGMT ---
Addendum entered by Yaneth Muniz 04/02/21 12:13: SCOOBY HERRING called pt dtr Chloé per pt request to update on status. Pt dtr is agreeable to finding any agency that will accept pt. SCOOBY HERRING then made referrals to [facility] who do not have nurses in [place], [place] per [facility] they do not have staff for this pt level of care, [facility] who is over capacity, [facility] who cannot staff stating pt is not appropriate for [facility]. [facility] states they do not have staffing for pt level of care. Awaiting acceptance from [facility], [facility], [facility] and [facility]. Original Note: SCOOBY HERRING in to pt room to make aware that [facility] is not able/willing to accept pt back. Provided pt with a list of [facility] providers including quality and resource use data and consistent with the patient?s preferred geographic region, medical needs, and insurance network. Pt states she does not have a preference of agency, she just wants to go home. TC to [facility] to make referral, spoke with Serina dixon. Will await answer for acceptance.
[2021-04-02 12:10] LABS: Bedside Glucose 168 mg/dL (70-110)
--- NOTE | 2021-04-02 12:23 | CASEMGMT ---
Addendum entered by Yaneth Muniz 04/02/21 15:34: Received tc back from Nusrat Zapata at [facility], they are unable to staff for the frequency of visits pt requires. TC to Isaura at [facility] to check on referral, the referral is still being reviewed. TC to [facility], spoke with Rosanne, they have had patient in the past and are unwilling to take her back. Left message on for Malaika at [facility] to obtain answer if they are able to accept pt. Addendum entered by Yaneth Muniz 04/02/21 13:46: SCOOBY HERRING discussed pt care with and dtr's wishes. TC to [facility] to see if pt could see if under hospice care and if pt could receive antibiotics. Spoke with Michael cooper who states pt could see but it would be self pay. Also the treatment is for comfort not curative, so the antibiotics would be questionable and unable to be determined at this time. [facility], a visit depending on treatment provided per web developer Keena is $[phone]. TC to pt dtr Chloé and presented the option of a LTACH. She states there is not a LTACH local enough where the patient could visit. She was presented with the information obtained from hospice. She is agreeable to meet with hospice tomorrow. She has many questions and she is aware that these need to be presented to hospice. TC back to hospice, spoke with hospice he is aware. Referral information sent. updated. Original Note: SCOOBY HERRING in to discuss WHITE form with patient. Pt is lying with eyes closed. Pt dtr Chloé is in room. SCOOBY HERRING explained WHITE form to dtr per her request, she voiced understanding. Pt dtr signed form and filed in chart. Pt dtr declined need for copy of WHITE form. Updated dtr that pt has been declined due to her level of care from some [facility] agencies and there are still pending acceptance. She states she does not want pt to go to a SNF. Discussed option of pt going home wi hospice as dtr suggested. She states one way or another pt will go home. She is currently not wanting a hospice consult as she states pt needs to see . She states she does not want her mother to of an infection and that is why she needs to be able to go to the dr dockery with . She states she would like to see what the other agencies say.
[2021-04-02] MEDS: hydroCHLOROthiazide 12.5mg 12.5 MG PO (12:37)
[2021-04-02] MEDS: Losartan Potassium 100 MG Tablet PO (12:37)
[2021-04-02] MEDS: amLODIPine 10 MG Tablet PO (12:37)
--- NOTE | 2021-04-02 13:37 | PCM.PN.SRG ---
Subjective Subjective Postop #22 Patient complains of pain with the dressing changes. Objective Data Objective Data Vital Signs: Vital Signs Temp Pulse Resp BP Pulse Ox 97.9 F 101 H 18 101/54 L 97 04/02/21 08:00 04/02/21 08:00 04/02/21 08:00 04/02/21 08:00 04/02/21 08:00 Oxygen Flow Rate (L/min) 2 Oxygen Delivery Method Nasal Cannula Weight: 126 lb 6.009 oz Body Mass Index (BMI) 21.0 Intake & Output: Intake and Output for Last 24 Hours 03/31/21 04/01/21 04/02/21 23:59 23:59 23:59 Intake Total 1066.00 / 1066.00 1245 / 1245 Output Total 650 / 650 800 / 800 Balance 416.00 / 416.00 445 / 445 Lab / Micro Data Attestation: I reviewed the patient's lab results. Result Diagrams: 04/01/21 13:45 04/01/21 13:45 Labs: Laboratory Results - last 24 hr 04/01/21 13:45: WBC 7.9, Corrected WBC DISPATCHER MAINTENANCE SERVICE, RBC 3.63 L, Hgb 9.3 L, Hct 32.2 L, MCV 88.7, MCH 25.6 L, MCHC 28.9 L, RDW Std Deviation 51.4 H, RDW Coeff of Mirza 15.8 H, Plt Count 482 H, MPV 9.4, Diff Path Review DISPATCHER MAINTENANCE SERVICE, ESR Cancelled 04/01/21 13:45: Sodium 132 L, Potassium 4.1, Chloride 98, Carbon Dioxide 29.0, Anion Gap 5, BUN 14, Creatinine 0.32 L, Estim Creat Clear Calc 46.43, Est GFR (MDRD) Af Amer 262, Est GFR (MDRD) Non-Af 217, BUN/Creatinine Ratio 43.9 H, Glucose 94, Calcium 9.0, Total Bilirubin 0.20, AST 9 L, ALT 9 L, Alkaline Phosphatase 105, C-React Prot Ext Range 37.90 H, Total Protein 6.1 L, Albumin 2.2 L, Globulin 3.9, Albumin/Globulin Ratio 0.6 L, Prealbumin 10.8 L 04/01/21 17:23: ESR 97 H 04/01/21 22:19: POC Glucose 117 H 04/02/21 06:25: POC Glucose 97 04/02/21 11:46: POC Glucose 168 H Radiography Diagnostic Testing: Radiology Impression Chest X-Ray 04/01/21 15:09 IMPRESSION: The tip of the right PICC line catheter is at the junction of the right subclavian vein and superior vena cava. Electronically Signed: Erick Damico MD at 15:37 EDT , Service support , Chest X-Ray 04/01/21 16:59 IMPRESSION: No acute process Electronically Signed: Madhu Orellana MD at 19:01 EDT , Service support , Physical Exam Narrative PHYSICAL EXAMINATION General - Alert and Oriented. Abdomen - Soft and nondistended. Lower back/sacral area - Sacral pressure sore is stable. Some granulation tissue present. Some tenderness to palpation. On the right sacral wound edge is another beginning area of skin necrosis. Will observe. May need further excision and debridement. Will monitor. Psych - Normal mood and affect. Assessment & Plan Assessment/Plan (1) Pressure ulcer of sacral region, stage 4: (2) Skin necrosis: (3) Osteomyelitis of pelvic region: (4) Type II diabetes mellitus: (5) Pseudomonas aeruginosa infection: (6) History of MRSA infection: (7) Smoker: PLAN: PICC line has been placed. Meropenem has been started. Also Zyvox po. Operative cultures from 03/11/21 showed E. coli, Pseudomonas aeroginosa, Coag Negative Staph, Methicillin resistant, and Clostridium clostridioforme in the soft tissue and Enterococcus faecalis in the bone. Pathology was positive for acute osteomyelitis. On the right edge of the sacral pressure sore is a new onset area of skin necrosis. Will monitor. May need excision and debridement at some point. Patient had Home Health that was recently cancelled. In the process of trying to find another Home Health agency. Patient states she does not want to go to another F. She wants to go home. However, if she goes home, there won't be any assistance with the IV antibiotics so they would need to be stopped unless Home Health can be arranged. It has been very difficult thus far as everyone that has been called cannot accept her at this time. That would put the sacral pressure sore at risk for worsening. Patient's daughter is aware. She wants her mother to be treated with wound care and with antibiotics. Hospice was also discussed. Patient can still see me in followup at [facility]. However, it would be a self pay if she chooses Hospice. Will continue to monitor. This is a complex wound situation with underlying osteomyelitis. She would do better at a facility than at home. If the ECF's feel the situation is too complex, can consider an LTAC. Awaiting resolution for placement before proceeding with discharge. Prealbumin from 04/01/21 was 10.8. Encourage nutritional supplementation with protein to help the healing process. HgbA1c from 03/11/21 was 5.4. Encouraged patient to stop smoking as it may have deleterious effects on wound healing.
--- NOTE | 2021-04-02 15:48 | CASEMGMT ---
Social Work Note SW reviewed chart. Pt with NIMA Irby. SW placed a call to Surekha and left message updating her on admission to [facility]. SW to continue to follow. Jennifer Newman STEAM BONE PRESS TENDER, MANAGER SALES
--- NOTE | 2021-04-02 16:50 | CASEMGMT ---
RN CM: This RN CM discussed discharge options with Dr. Aguirre. These options include home without home health (unable to secure a provider a this time) and inability to continue IV antibiotics or wound vac in the home; SNF w/wound vac and IV antibiotic; possible LTACH appropriateness; or home w/hospice. Dr. Aguirre notified of planned meeting between pt, pt daughter and [facility] tomorrow AM. Dr. Aguirre states he will be calling pt's daughter this PM to discuss goals of care and options at discharge. Dr Aguirre noted pt is currently active with [facility]. This RN CM spoke with SCOOBY Berrios at [facility] for collaboration. Agustina states they have been making monthly visits and these visits have included discussions regarding hospice services. Pt and/or daughter have not been receptive to these services in the past. RN CM will follow-up in AM for decision on goals of care/discharge plan and facilitate needs as identified. Brittani [place] RN CM
[2021-04-02 17:35] LABS: Bedside Glucose 104 mg/dL (70-110)
[2021-04-02] MEDS: Rosuvastatin Calcium 5 MG Tablet PO (22:03)
[2021-04-02 23:00] LABS: Bedside Glucose 94 mg/dL (70-110)
[2021-04-03] VITALS (8 sets, daily range): BP systolic 99–150; BP diastolic 59–82; PULSE 97–104; RESP 16–18; TEMP 36.8–37.1; O2SAT 2–98
[2021-04-03] MEDS: Lactated Ringers 1,000 ML 60 ML IV ×2 (04:06→21:50)
[2021-04-03] MEDS: Enoxaparin 40 MG/0.4 ML Syringe SC (06:03)
[2021-04-03 07:01] LABS: Bedside Glucose 82 mg/dL (70-110)
[2021-04-03] MEDS: metFORMIN (XR) 500 MG Tablet PO ×2 (08:43→17:37)
[2021-04-03] MEDS: Aspirin 81 MG TAB.CHEW PO (08:44)
[2021-04-03] MEDS: Docusate Sodium 100 MG Capsule PO ×2 (08:44→21:51)
--- NOTE | 2021-04-03 09:30 | CASEMGMT ---
Addendum entered by Yaneth Muniz 04/03/21 15:46: Pt had meeting with family and hospice, pt has decided to go to SNF. TC to [facility], spoke with Yosef to cancel referral. Addendum entered by Yaneth Muniz 04/03/21 11:17: Received call back from Kimberly at hospice who states she spoke with pt dtr who states pt is going home with IV antibiotics and wound vac and hospice cannot follow this so no appt was made with pt and family. Made Kimberly aware of situation and that Alexandrea KIRBY wants to be at meeting. Kimberly called dtr back and time set up for 2:30. TC to Alexandrea to make aware. She states spoke with pt dtr lastnight for approx half hour and made her aware that if they would like to proceed with the wound vac and IV antibiotics then pt needs to go to a SNF or LTACH. Original Note: TC to [facility] to see the time they will be meeting with pt and family. Spoke with intake, they do not have referral info. Faxed at this time. Alexandrea Saleh NP would like to be present during meeting. Per Kimberly, will be after 3pm.
[2021-04-03] MEDS: Glucerna Shake 120 ML LIQUID PO ×4 (10:25→21:50)
[2021-04-03] MEDS: Linezolid 600 MG Tablet PO ×2 (10:25→21:51)
[2021-04-03] MEDS: DAKIN'S SOL HALF STRENGTH (=0.25%) 1 APPLIC TOPICAL (11:10)
--- NOTE | 2021-04-03 12:07 | CASEMGMT ---
RN CM Readmission Note Previous Admission: 03/06/21-03/12/21 Diagnosis: acute cystitis, stage IV decub ulcer Pt had excision of necrotic area and partial ostectomy for osteomyelitis of stage IV decub ulcer. Pt dc'd with wound vac. DC Disposition: Home with [facility] and palliative care. Current Admission Presentation: osteomyelitis Pt presented from [facility] for placement of Picc line for IV antibiotics d/t osteomyelitis. Pt is active with [facility] but they are unable to accept pt back with IV antibiotics. Unable to find a willing [facility] agency to visit patient d/t complexity of her care. Pt and dtr as well as Amada Saleh BRIDGE ENGINEER to meet with hospice today for more information. Pt adamantly does not was SNF at this time. CM to follow. DC plan: Home with hospice vs SNF
[2021-04-03] MEDS: Losartan Potassium 100 MG Tablet PO (12:22)
[2021-04-03] MEDS: hydroCHLOROthiazide 12.5mg 12.5 MG PO (12:22)
[2021-04-03] MEDS: amLODIPine 10 MG Tablet PO (12:22)
[2021-04-03 12:41] LABS: Bedside Glucose 134 mg/dL (70-110)
--- NOTE | 2021-04-03 15:50 | CASEMGMT ---
Social Work Note CHRISSY updated that pt's family is not ready for hospice, pt agreeable to SNF for IV antibiotics and wound care. SW in to speak with pt and pt's family. Pt's daughter Chloé and preset in room. While SW was entering pt's room, pt's daughter was explaining to pt that if pt went home it would be a sentence. Pt made a comment well maybe I would be better of . Pt's family was talking to pt about how that wouldn't be true. CHRISSY then introduced self and role at [facility]. Pt states why do I need a Hedis Abstractor. CHRISSY informed pt and Chloé that this worker will arrange SNF placement for pt. Antoinette states pt is very hard of hearing and wrote down questions/conversations with pt. Patient was provided a list of SNF providers including quality and resource use data and consistent with the patient?s preferred geographic region, medical needs, and insurance network. Antoinette confirms pt will need to go to a SNF that allows smoking. CHRISSY informed Antoinette that there are two SNF in [place] that allow smoking and that is [facility] and [facility]. Antoinette states pt will not be going back to [facility]. Pt updated on this information, agreeable to [facility]. CHRISSY asked Antoinette if pt has had COVID vaccination, Antoinette states pt has NOT had COVID vaccination. CHRISSY explained that typically since pt is not vaccinated, pt will need to be isolation for 14 days and will not be able to leave her room. Antoinette wrote down this information to pt and pt states I'll get the fucking shot. CHRISSY informed pt's family that this worker is not sure or if [facility] is providing pt's with COVID vaccination while pt is at [facility] but this worker will check. Pt and pt's family agreeable to referral being sent to [facility]. Pt's asking how he can get COVID Vaccination, CHRISSY informed him that this worker is not sure, will ask. CHRISSY spoke with Amada, recreation establishment manager, [facility] is not providing COVID vaccinations to pt, even if they were, pt would need to wait 14 days between first dose and second dose and pt would likely still need to be in isolation at SNF while waiting for the second dose. Amada states [facility] is no longer provided COVID clinics and pt's will need to either check with his PCP, call the Health Dept. or he can go to any drug store to get vaccination. CHRISSY placed a call to Beckie at [facility]. Beckie states [facility] does have permitted times that the nonvaccinated residents can go out and smoke. CHRISSY provided referral to Beckie and faxed referral to Beckie at [facility]. SW back in to speak with pt and pt's family. SW updated pt's on ways he can get COVID vaccinations. CHRISSY updated pt and Antoinette that pt can admit to [facility], without COVID vaccination, and pt will be allowed to smoke while in isolation for 14 days. CHRISSY informed Antoinette that this worker cannot guarantee how often pt will be allowed to smoke but informed her that [facility] is stating they allow the nonvaccinated to go out and smoke. Pt states she will not get the COVID vaccination then and agreeable to [facility]. CHRISSY informed pt's family that referral has been sent to [facility], waiting for determination. CHRISSY asked Antoinette if pt has any history of anxiety or depression. Antoinette states pt has situational depression. Antoinette states once pt is isolated, pt will get depressed and give up but states pt's family is able to talk her out of it. Antoinette states pt has no history of suicidal thoughts/plans/ideations. Antoinette states she would probably rather hurt me or you then herself. Antoinette states I am joking though. Antoinette states pt doesn't need to be on any pills for depression and she is aware that pt has situational depression. Pt remained silent during conversation, unable to provide answers at this time. CHRISSY informed Antoinette that this worker will keep her and pt updated on referral to [facility]. Pt's family has left [facility]. SW in to speak with pt. SW brought in clipboard and piece of paper/pen to speak with pt. SW asked pt about history of depression. Pt denied any history of depression. Pt denied any history of suicidal/homicidal thoughts/plans/ideations. Pt denied any current suicidal/homicidal thoughts/plans/ideations. SW informed pt that this worker will let her know about [facility] when they let this worker know. Pt states understanding. Plan: [facility] pending acceptance and pre-cert Jennifer Newman 3D ARTIST, CORE LAYER MACHINE OPERATOR
--- NOTE | 2021-04-03 16:49 | CASEMGMT ---
Social Work Note CHRISSY received call from Beckie at [facility] stating [facility] is able to accept pt and Beckie has submitted pre-cert. CHRISSY asked Beckie if PT/OT will need to be ordered, Beckie states pt's insurance may ask for PT/OT and pt will be getting PT/OT while at [facility]. CHRISSY placed a call to Amada PERDOMO and updated her on acceptance to [facility] pending pre-cert. Amada gave approval for PT/OT to be ordered. PT/OT ordered. CHRISSY will update pt tomorrow. Plan: [facility] pending pre-cert Jennifer Newman BALL ENDER, LCAC RADAR OPERATOR/NAVIGATOR
[2021-04-03 16:50] LABS: Bedside Glucose 106 mg/dL (70-110)
--- NOTE | 2021-04-03 21:38 | PN.SURG_ITS ---
Subjective Subjective Postop #23 Patient is resting comfortably except for dressing changes. She tolerated the Dakin's dressing change reasonably well today but still painful. Objective Data Objective Data Vital Signs: Vital Signs Temp Pulse Resp BP Pulse Ox 98.3 F 99 16 116/69 98 04/03/21 16:47 04/03/21 16:47 04/03/21 16:49 04/03/21 16:47 04/03/21 16:47 Oxygen Flow Rate (L/min) 2 Oxygen Delivery Method Nasal Cannula Weight: 126 lb 5.198 oz Body Mass Index (BMI) 21.0 Intake & Output: Intake and Output for Last 24 Hours 04/01/21 04/02/21 04/03/21 23:59 23:59 23:59 Intake Total 1066.00 / 1066.00 1605 / 1725 2156 / 2156 Output Total 650 / 650 1050 / 1250 1825 / 1825 Balance 416.00 / 416.00 555 / 475 331 / 331 Medical Nutrition Assessment Dietitian: Nutrition Therapy Diagnosis Start: 04/03/21 12:24 Freq: Status: Active Protocol: Document 04/03/21 12:37 RMA (Rec: 04/03/21 12:37 RMA [id number]) Nutrition Malnutrition Evidence of Malnutrition Exists Yes Malnutrition (severe): Chronic Evidenced By Suboptimal Energy Intake ( Severe),Weight Loss (Severe), Physical Changes (Severe) Intake Problem Increased Nutrient Needs (specify) Etiology (protein) r/t wounds Signs/Symptoms as evidenced by stage 4 pressure ulcer of sacral region. Status Active Problem Clinical Problem Chronic Disease or Condition Related Malnutrition Etiology severe malnutrition r/t inadequate oral intake w/ increased nutrient needs d/t wounds Signs/Symptoms as evidenced by pt report of decrease in appetite, estimated energy intake meeting </=75% if energy requirements, wt loss of 28#/ 23% x2 months and physical findings of severe muscle and fat wasting of clavicle region and thigh/patellar region. Status Active Problem Recommendation Dietitian Recommendations/Changes Will liberalize diet to regular/general d/t signs and symptoms of malnutrition. Continue Romie 1 pkt BID. Continue glucerna shake 120mL PO 4x/day at [facility]. Lab / Micro Data Attestation: I reviewed the patient's lab results. Result Diagrams: 04/01/21 13:45 04/01/21 13:45 Labs: Laboratory Results - last 24 hr 04/02/21 22:21: POC Glucose 94 04/03/21 06:54: POC Glucose 82 04/03/21 12:37: POC Glucose 134 H 04/03/21 16:44: POC Glucose 106 Physical Exam Narrative General - Alert and Oriented. Abdomen - Soft and nondistended. Lower back/sacral area - Sacral pressure sore is stable. Some granulation tissue present. Some tenderness to palpation. On the right sacral wound edge is another beginning area of skin necrosis. May need further excision and debridement. Will monitor. Psych - Normal mood and affect. Assessment & Plan Assessment/Plan (1) Pressure ulcer of sacral region, stage 4: (2) Skin necrosis: (3) Osteomyelitis of pelvic region: (4) Type II diabetes mellitus: (5) Pseudomonas aeruginosa infection: (6) History of MRSA infection: (7) Smoker: (8) Severe malnutrition: PLAN: PICC line in placed. Continue Meropenem IV and Zyvox po. Operative cultures from 03/11/21 showed E. coli, Pseudomonas aeroginosa, Coag Negative Staph, Methicillin resistant, and Clostridium clostridioforme in the soft tissue and Enterococcus faecalis in the bone. Pathology was positive for acute osteomyelitis. On the right edge of the sacral pressure sore is a new onset area of skin necrosis. Will monitor. May need excision and debridement at some point. Patient had Home Health that was recently cancelled. In the process of trying to find another Home Health agency. Patient states she does not want to go to another ECF. She wants to go home. However, if she goes home, there won't be any assistance with the IV antibiotics so they would need to be stopped unless Home Health can be arranged. It has been very difficult thus far as everyone that has been called cannot accept her at this time. That would put the sacral pressure sore at risk for worsening. Patient's daughter is aware. She wants her mother to be treated with wound care and with antibiotics. Hospice was also discussed. Patient can still see me in followup at the [facility]. However, it would be a self pay if she chooses Hospice. Will continue to monitor. This is a complex wound situation with underlying osteomyelitis. She would do better at a facility than at home. If the ECF's feel the situation is too complex, can consider an LTAC. Family did not want to go to an LTAC because they are located out of town. Even though they aren't thrilled about going to an ECF, at least it is in [place] so it is easier for family to visit. Compromise was made that the patient would only go to an ECF if smoking was allowed. Awaiting resolution for placement before proceeding with discharge. Prealbumin from 04/01/21 was 10.8. Encourage nutritional supplementation with protein to help the healing process. HgbA1c from 03/11/21 was 5.4. Encouraged patient to stop smoking as it may have deleterious effects on wound healing. Patient was seen by Nutrition Services. They state the patient has severe malnutrition r/t inadequate oral intake w/ increased nutrient needs d/t wounds as evidenced by pt report of decrease in appetite, estimated energy intake meeting </=75% if energy requirements, wt loss of 28#/23% x2 months and physical findings of severe muscle and fat wasting of clavicle region and thigh/patellar region. Plan: Will liberalize diet to regular/general d/t signs and symptoms of malnutrition. Continue Romie 1 pkt BID. Add glucerna 120mL PO 4x/day at [employer].
[2021-04-03] MEDS: Rosuvastatin Calcium 5 MG Tablet PO (21:51)
[2021-04-03 22:00] LABS: Bedside Glucose 131 mg/dL (70-110)
[2021-04-04] MEDS: oxyCODONE 5 MG Tablet 10 MG PO ×4 (00:16→22:10)
[2021-04-04 04:47] VITALS: BP 118/68; PULSE 92; RESP 16; TEMP 36.8; O2SAT 97
[2021-04-04] MEDS: Enoxaparin 40 MG/0.4 ML Syringe SC (04:59)
[2021-04-04 06:41] LABS: Bedside Glucose 96 mg/dL (70-110)
[2021-04-04 07:58] VITALS: O2SAT 95
[2021-04-04] MEDS: DAKIN'S SOL HALF STRENGTH (=0.25%) 1 APPLIC TOPICAL (09:05)
[2021-04-04] MEDS: Glucerna Shake 120 ML LIQUID PO ×4 (10:37→22:09)
[2021-04-04] MEDS: Docusate Sodium 100 MG Capsule PO ×2 (10:38→22:09)
[2021-04-04] MEDS: Linezolid 600 MG Tablet PO ×2 (10:38→22:19)
[2021-04-04] MEDS: Aspirin 81 MG TAB.CHEW PO (10:38)
[2021-04-04] MEDS: metFORMIN (XR) 500 MG Tablet PO ×2 (10:38→16:10)
[2021-04-04 10:51] VITALS: BP 136/71; PULSE 81; RESP 16; TEMP 37.2; O2SAT 92
--- NOTE | 2021-04-04 11:53 | CASEMGMT ---
Social Work Note SW faxed PT/OT and updated wound notes to Beckie at [facility]. Plan: You pending pre-cert Jennifer Newman ROTARY SOIL STABILIZER OPERATOR, REGISTERED NURSE
[2021-04-04] MEDS: Losartan Potassium 100 MG Tablet PO (12:19)
[2021-04-04] MEDS: hydroCHLOROthiazide 12.5mg 12.5 MG PO (12:19)
[2021-04-04] MEDS: amLODIPine 10 MG Tablet PO (12:19)
[2021-04-04 12:30] LABS: Bedside Glucose 95 mg/dL (70-110)
--- NOTE | 2021-04-04 13:19 | PN.SURG_ITS ---
Subjective Subjective Postop #24 Patient is resting comfortably except for dressing changes. She tolerated the Dakin's dressing change reasonably well today but still painful. Objective Data Objective Data Vital Signs: Vital Signs Temp Pulse Resp BP Pulse Ox 99.0 F 81 16 136/71 H 92 04/04/21 10:51 04/04/21 10:51 04/04/21 10:51 04/04/21 10:51 04/04/21 10:51 Oxygen Flow Rate (L/min) 2 Oxygen Delivery Method Room Air Weight: 126 lb 5.198 oz Body Mass Index (BMI) 21.0 Intake & Output: Intake and Output for Last 24 Hours 04/02/21 04/03/21 04/04/21 23:59 23:59 23:59 Intake Total 1605 / 1725 3300 / 3300 210 / 210 Output Total 1050 / 1250 2325 / 2325 900 / 900 Balance 555 / 475 975 / 975 -690 / -690 Medical Nutrition Assessment Dietitian: Nutrition Therapy Diagnosis Start: 04/03/21 12:24 Freq: Status: Active Protocol: Document 04/03/21 12:37 RMA (Rec: 04/03/21 12:37 RMA [id number]) Nutrition Malnutrition Evidence of Malnutrition Exists Yes Malnutrition (severe): Chronic Evidenced By Suboptimal Energy Intake ( Severe),Weight Loss (Severe), Physical Changes (Severe) Intake Problem Increased Nutrient Needs (specify) Etiology (protein) r/t wounds Signs/Symptoms as evidenced by stage 4 pressure ulcer of sacral region. Status Active Problem Clinical Problem Chronic Disease or Condition Related Malnutrition Etiology severe malnutrition r/t inadequate oral intake w/ increased nutrient needs d/t wounds Signs/Symptoms as evidenced by pt report of decrease in appetite, estimated energy intake meeting </=75% if energy requirements, wt loss of 28#/ 23% x2 months and physical findings of severe muscle and fat wasting of clavicle region and thigh/patellar region. Status Active Problem Recommendation Dietitian Recommendations/Changes Will liberalize diet to regular/general d/t signs and symptoms of malnutrition. Continue Romie 1 pkt BID. Continue glucerna shake 120mL PO 4x/day at [facility]. Lab / Micro Data Attestation: I reviewed the patient's lab results. Result Diagrams: 04/05/21 06:31 04/05/21 06:31 Labs: Laboratory Results - last 24 hr 04/03/21 16:44: POC Glucose 106 04/03/21 21:48: POC Glucose 131 H 04/04/21 06:26: POC Glucose 96 04/04/21 12:24: POC Glucose 95 Physical Exam Narrative General - Alert and Oriented. Abdomen - Soft and nondistended. Lower back/sacral area - Sacral pressure sore is stable. Some granulation tissue present. Some tenderness to palpation. On the right sacral wound edge is another beginning area of skin necrosis. May need further excision and debridement. Will monitor. Psych - Normal mood and affect. Assessment & Plan Assessment/Plan (1) Pressure ulcer of sacral region, stage 4: (2) Skin necrosis: (3) Osteomyelitis of pelvic region: (4) Type II diabetes mellitus: (5) Pseudomonas aeruginosa infection: (6) History of MRSA infection: (7) Smoker: (8) Severe malnutrition: PLAN: PICC line in place. Continue Meropenem IV and Zyvox po. Operative cultures from 03/11/21 showed E. coli, Pseudomonas aeroginosa, Coag Negative Staph, Methicillin resistant, and Clostridium clostridioforme in the soft tissue and Enterococcus faecalis in the bone. Pathology was positive for acute osteomyelitis. On the right edge of the sacral pressure sore is a new onset area of skin necrosis. Will monitor. May need excision and debridement at some point. Patient had Home Health that was recently cancelled. In the process of trying to find another Home Health agency which was not possible at this time. After discussion with the family, they agreed to go to an ECF as long as they allow her to smoke. ECF evaluation in process. This is a complex wound situation with underlying osteomyelitis. She would do better at a facility than at home. If the ECF's feel the situation is too complex, can consider an LTAC. Family did not want to go to an LTAC because they are located out of town. Even though they aren't thrilled about going to an ECF, at least it is in [place] so it is easier for family to visit. Prealbumin from 04/01/21 was 10.8. Encourage nutritional supplementation with protein to help the healing process. HgbA1c from 03/11/21 was 5.4. Encouraged patient to stop smoking as it may have deleterious effects on wound healing. Patient was seen by Nutrition Services. They state the patient has severe malnutrition r/t inadequate oral intake w/ increased nutrient needs d/t wounds as evidenced by pt report of decrease in appetite, estimated energy intake meeting </=75% if energy requirements, wt loss of 28#/23% x2 months and physical findings of severe muscle and fat wasting of clavicle region and thigh/patellar region. Plan: Will liberalize diet to regular/general d/t signs and symptoms of malnutrition. Continue Romie 1 pkt BID. Add glucerna 120mL PO 4x/day at [facility].
[2021-04-04 13:49] VITALS: BP 118/66; PULSE 96; RESP 18; TEMP 37.6; O2SAT 96
--- NOTE | 2021-04-04 14:50 | CASEMGMT ---
Addendum entered by Jennifer Newman 04/04/21 15:09: CHRISSY received message from Chey HERRING at [facility] stating she is covering for pt's usual CM [employer] and would like an update. Chey #[phone]. CHRISSY placed a call to Chey at [facility] and provided update. Original Note: Social Work Note SW spoke with Beckie at [facility] who stated she was told by [facility] that they would let her know today about pt's pre-cert. SW in to speak with pt. SW took clipboard and piece of paper/pen. CHRISSY wrote on paper that You has accepted pt pending pre-cert. Pt states understanding. Plan: You pending pre-cert Jennifer Newman APPEALS OFFICER, DIETARY WORKER
--- NOTE | 2021-04-04 15:50 | CASEMGMT ---
Social Work Note CHRISSY placed courtesy call to pt's daughter/POAshwini Luevano and updated her that [facility] has accepted pt, pre-cert is still pending. Chloé asked if any of the other [facility] companies have called back regarding referral for pt. CHRISSY informed Chloé that this worker hasn't been working on HHC, RN CM have been and this worker hasn't received update from them at this time regarding HHC. Chloé asked this worker to ask RN CM if any [facility] companies have got back to them. CHRISSY informed Chloé that this worker will ask RN CM. Chloé states first preference would be to go home, if HHC can be set up. CHRISSY informed Chloé that at this time, this worker hasn't been updated regarding HHC, but will ask. Chloé states understanding. CHRISSY updated Chloé that pre-cert is still pending, could still happen tonight. Chloé asked to be called if anything changes with HHC or of pre-cert is obtained. CHRISSY placed a call to RN CM, No [facility] companies have called back. CHRISSY did not call Chloé back to update as nothing has changed since no C have called RN CM back. Plan: [facility] pending pre-cert Jennifer Newman AQUATICS COORDINATOR, UNDERGROUND ELECTRICIAN
[2021-04-04] MEDS: Lactated Ringers 1,000 ML 60 ML IV (16:07)
--- NOTE | 2021-04-04 16:51 | CASEMGMT ---
Social Work Note CHRISSY placed a call to Beckie at [facility], pre-cert is still pending. Direct number provided for [facility] in the event pre-cert is obtained later tonbinta. Con[facility]escent [facility]000 completed in HENS. CHRISSY placed Green sheet, transport forms, HENS, COVID tool on pt's chart in the event pre-cert is obtained. Plan: [facility] pending pre-cert Jennifer Newman LEGAL SUPPORT SPECIALIST, ROLLED MATERIALS WORKER
[2021-04-04] MEDS: Acetaminophen 500 MG Tablet PO (18:43)
[2021-04-04 20:28] VITALS: BP 113/70; PULSE 94; RESP 18; TEMP 36.8; O2SAT 97
[2021-04-04] MEDS: Rosuvastatin Calcium 5 MG Tablet PO (22:10)
[2021-04-04 22:51] LABS: Bedside Glucose 120 mg/dL (70-110)
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
[2021-04-05] MEDS: Acetaminophen 500 MG Tablet PO ×4 (02:24→16:44)
[2021-04-05 02:26] VITALS: BP 134/79; PULSE 96; RESP 18; TEMP 36.8; O2SAT 96
[2021-04-05] MEDS: oxyCODONE 5 MG Tablet 10 MG PO ×3 (06:12→16:45)
[2021-04-05] MEDS: Enoxaparin 40 MG/0.4 ML Syringe SC (06:17)
[2021-04-05 06:40] LABS: Bedside Glucose 89 mg/dL (70-110)
[2021-04-05 06:49] LABS: Hematocrit 27.7 % (37-47); Hemoglobin 8.4 g/dL (12.0-15.0); Mean Corp Hgb Conc 30.3 g/dL (32-36); Mean Corpuscular Hgb 25.1 pg (27.0-32.0); Mean Corpuscular Volume 82.7 fL (81-99); Mean Platelet Vol. 9.6 fl (6.2-12.0); Platelet Count 426 K/mm3 (150-450); RBC Distribution Width CV 15.1 % (11.6-14.6); RBC Distribution Width SD 45.9 fl (35.1-43.9); Red Blood Count 3.35 M/mm3 (4.2-5.4); White Blood Count 4.4 K/mm3 (4.4-11.0)
[2021-04-05 07:24] LABS: Anion Gap 5 (5-15); BUN 11 mg/dL (7-18); Calcium,Total 8.5 mg/dL (8.5-10.1); Chloride 99 mmol/L (98-107); Creatinine, Serum 0.23 mg/dL (0.55-1.02); EST Glomerular Filtration Rate 318 mL/min (>60); Est Glom Filt Rate - Afr Amer 384 mL/min (>60); Estimated Creatinine Clearance 46.43 ml/min; Glucose 83 mg/dL (74-106); Sodium Level 134 mmol/L (136-145)
--- NOTE | 2021-04-05 07:47 | NURSING ---
POOJA PALOMINO IN TO SPEAK WITH PT. THIS NURSE PRESENT
[2021-04-05 07:55] VITALS: BP 134/92; PULSE 93; RESP 16; TEMP 37.1; O2SAT 92
[2021-04-05] MEDS: metFORMIN (XR) 500 MG Tablet PO ×2 (07:57→16:46)
[2021-04-05] MEDS: Aspirin 81 MG TAB.CHEW PO (07:57)
--- NOTE | 2021-04-05 09:30 | CASEMGMT ---
Social Work Note SW received message from Beckie at [facility] stating pre-cert was obtained, pt can discharge to [facility] today. SW placed a call to physician and left message and updated him. SW to fax discharge paperwork once completed Plan: [facility] today Jennifer Newman DISTRICT GAUGER, COSMETICS COUNTER MANAGER
[2021-04-05] MEDS: Losartan Potassium 100 MG Tablet PO (11:02)
[2021-04-05] MEDS: amLODIPine 10 MG Tablet PO (11:03)
[2021-04-05] MEDS: hydroCHLOROthiazide 12.5mg 12.5 MG PO (11:03)
[2021-04-05] MEDS: Linezolid 600 MG Tablet PO (11:03)
[2021-04-05] MEDS: Lactated Ringers 1,000 ML 60 ML IV (11:06)
[2021-04-05] MEDS: Glucerna Shake 120 ML LIQUID PO ×2 (11:07→14:39)
[2021-04-05] MEDS: Docusate Sodium 100 MG Capsule PO (11:07)
[2021-04-05 11:21] LABS: Bedside Glucose 173 mg/dL (70-110)
--- NOTE | 2021-04-05 12:43 | PCM.DC ---
Discharge Instructions Activity Discharge Activity: Return to Normal Activity Dressing / Incision Call your doctor if your incision/area has: Continuous Slow Oozing, Sudden Increased Bleeding, Increased Pain/ Swelling, Increased Redness, Foul Smelling Discharge and Swelling at the incision site Call your doctor if you observe: Fever of 101 or Higher, Inability to urinate, Inability to have a bowel movement, Dizziness, Chest pain, Calf discomfort and Uncontrolled pain Cleanse incision/area with: Soap & Water Additional Dressing/Incision Instructions:: Wound VAC to be changed 3 times per week. VAC to be at 150 mmHg. When changing wound VAC, cleanse the wound and surrounding skin with soap and water. When she goes to the Wound center, please bring VAC supplies to have the dressing changed. Follow Up Care Please Follow Up With: Alexandrea Saleh When: At the wound healing center on 04/15/21. [phone] Test Results: Test results from this visit will be discussed in further detail at your follow-up appointment, if applicable. Discharge Plan Admission Admit Date/Time: 04/02/21 16:16 Attending Provider: Riki Aguirre Primary Care Provider: Ifeanyi Duong Discharge Orders/Prescriptions Prescriptions: New linezolid 600 mg Tablet 600 mg PO BID 14 Days Qty: 28 RF: 0 Glucerna 1.2 Tim 0.06-1.2 gram-kcal/mL Liquid 120 ml PO 4X/DAY 10 Days Qty: 40 RF: 4 meropenem 500 mg Recon Soln 500 mg IV Q8 39 Days Qty: 117 RF: 0 promethazine 25 mg Tablet 25 mg PO Q4H PRN PRN (Reason: Nausea/Vomiting) 10 Days Qty: 20 RF: 0 nicotine 21 mg/24 hr Patch 24 Hour 21 mg transdermal DAILY 30 Days Qty: 30 RF: 1 Romie (with collagen) 7-7-1.5 gram Powder In Packet 1 packet PO BIDCM 30 Days Qty: 60 RF: 1 Continued hydrochlorothiazide 25 MG tablet 12.5 mg PO DAILY RF: 0 losartan 100 MG tablet 100 mg PO DAILY RF: 0 rosuvastatin 5 MG tablet 5 mg PO QHS RF: 0 metformin 500 MG tablet 500 mg PO BID RF: 0 aspirin 81 MG tablet,chewable 81 mg PO DAILY@0800 RF: 0 sennosides-docusate sodium 8.6-50 mg Tablet 2 tab-cap PO QHS PRN (Reason: Constipation) RF: 0 polyethylene glycol 3350 [Miralax] 17 gram Powder In Packet 17 g PO BID RF: 0 oxycodone 7.5 mg Tablet, Oral Only 7.5 mg PO Q4H PRN (Reason: Pain) 7 Days Qty: 30 RF: 0 Referrals / Follow Up: Ifeanyi Duong MD [Primary Care Provider] - Disposition Disposition (needs filled in before D/C Order can be placed): [facility]
[2021-04-05 14:00] VITALS: BP 122/76; PULSE 98; RESP 18; TEMP 36.7; O2SAT 95
--- NOTE | 2021-04-05 14:11 | PCM.TXEXTCAR ---
Diet 04/01/21 16:44 Diet: Regular - General Food consistency:: Regular Liquid Consistency:: Regular/Thin Is pt able to select menu?: Yes Diet Comments: SOFT FOODS, CUT UP IN SMALL PIECES Routine Orders/Code Status Huston Catheter Size: 16 Change Huston Catheter: every 30 days and prn Routine Lab Work: CBC (every Thursday for 6 weeks. Fax results to Wound Center at [phone].) and - (CMP, ESR, CRP every Thursday for 6 weeks. Fax results to Wound Center at [phone].) Code Status: Full Code Wound(s) sacrum: Wound Type: Pressure Injury (had surgery 03/11/21.) Dressing Change: Dakins moistened gauze Suggestions for Active Care Change Position every (hours): 2 Therapies Weight Bearing: Weight bearing as tolerated Physical Therapy: Eval and Treat Occupational Therapy: Eval and Treat Problem/Diagnosis (1) Pressure ulcer of sacral region, stage 4: Status: Chronic (2) Skin necrosis: Status: Acute (3) Osteomyelitis of pelvic region: Status: Chronic (4) Type II diabetes mellitus: Status: Chronic (5) Pseudomonas aeruginosa infection: Status: Acute (6) History of MRSA infection: Status: Chronic (7) Smoker: Status: Chronic (8) Severe malnutrition: Status: Acute Allergies/Procedures Done in Hospital Allergies amoxicillin [From Augmentin] Allergy (Verified 03/06/21 11:20) Rash atorvastatin [From Lipitor] Allergy (Verified 03/06/21 11:20) Other clavulanic acid [From Augmentin] Allergy (Verified 03/06/21 11:20) Rash gabapentin Allergy (Verified 03/06/21 11:20) Nausea lisinopril Allergy (Verified 03/06/21 11:20) PT UNSURE OF REACTION mold Allergy (Verified 03/06/21 11:20) PT UNSURE OF REACTION pollen extracts Allergy (Verified 03/06/21 11:20) PT UNSURE OF REACTION quinapril [From Accupril] Allergy (Verified 03/06/21 11:20) Rash ragweed pollen Allergy (Verified 03/06/21 11:20) PT UNSURE OF REACTION simvastatin [From Zocor] Allergy (Verified 03/06/21 11:20) PT UNSURE OF REACTION tramadol Allergy (Verified 06/23/21 11:20) PT UNSURE OF REACTION tuberculin, purified protein deriva Allergy (Verified 03/06/21 11:20) PT UNSURE OF REACTION fluoxetine Adverse Reaction (Verified 03/06/21 11:20) Other Procedures: PICC line placement and Wound Vac placement (At discharge, the wound care was Dakin's dressing changes.) Type of Care/Length of Stay Estimated LOS: More Than 30 Days Type of Care Needed: Skilled Rehab Potential: Fair Prognosis: Fair Additional Orders/Day of Discharge Additional Orders: Meropenem 500mg IV q8 hours Zyvox 600mg PO q12 hours H&P will serve as current which was dated: 04/01/21 Day of Discharge: 04/05/21 Dietary and Speech Recommendations Dietitian Recommendations/Changes: Will liberalize diet to regular/general d/t signs and symptoms of malnutrition. Continue Romie 1 pkt BID. Continue glucerna shake 120mL PO 4x/day at [facility]. Follow Up Care Please Follow Up With: Alexandrea Saleh Discharge Plan Admission Admit Date/Time: 04/02/21 16:16 Attending Provider: Riki Aguirre Primary Care Provider: Ifeanyi Duong Discharge Orders/Prescriptions Prescriptions: New linezolid 600 mg Tablet 600 mg PO BID 14 Days Qty: 28 RF: 0 Glucerna 1.2 Tim 0.06-1.2 gram-kcal/mL Liquid 120 ml PO 4X/DAY 10 Days Qty: 40 RF: 4 meropenem 500 mg Recon Soln 500 mg IV Q8 39 Days Qty: 117 RF: 0 promethazine 25 mg Tablet 25 mg PO Q4H PRN PRN (Reason: Nausea/Vomiting) 10 Days Qty: 20 RF: 0 nicotine 21 mg/24 hr Patch 24 Hour 21 mg transdermal DAILY 30 Days Qty: 30 RF: 1 Romie (with collagen) 7-7-1.5 gram Powder In Packet 1 packet PO BIDCM 30 Days Qty: 60 RF: 1 Continued hydrochlorothiazide 25 MG tablet 12.5 mg PO DAILY RF: 0 losartan 100 MG tablet 100 mg PO DAILY RF: 0 rosuvastatin 5 MG tablet 5 mg PO QHS RF: 0 metformin 500 MG tablet 500 mg PO BID RF: 0 aspirin 81 MG tablet,chewable 81 mg PO DAILY@0800 RF: 0 sennosides-docusate sodium 8.6-50 mg Tablet 2 tab-cap PO QHS PRN (Reason: Constipation) RF: 0 polyethylene glycol 3350 [Miralax] 17 gram Powder In Packet 17 g PO BID RF: 0 oxycodone 7.5 mg Tablet, Oral Only 7.5 mg PO Q4H PRN (Reason: Pain) 7 Days Qty: 30 RF: 0 Referrals / Follow Up: Ifeanyi Duong MD [Primary Care Provider] - Disposition Disposition (needs filled in before D/C Order can be placed): Detention Facility
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
[2021-04-05] MEDS: 0.9% Saline Lock 10 ML Syringe IV (17:00)
--- NOTE | 2021-04-07 23:23 | PCM.DC.SUM ---
Providers Date of Admission: 04/01/21 Date of Discharge: 04/05/21 Primary Care Physician: Dr. Ifeanyi Duong MD Consultations 04/01/21 11:52 Consult: Onc/Wound/slitter creaser slotter helper Routine Comment: Reason for Consult:: SACRAL WOUND Reason For Visit: OSTEOMYELITIS Diagnosis Discharge Diagnosis (1) Pressure ulcer of sacral region, stage 4: Status: Chronic Code(s): L89.154 - Pressure ulcer of sacral region, stage 4 (2) Skin necrosis: Status: Acute Code(s): I96 - Gangrene, not elsewhere classified (3) Osteomyelitis of pelvic region: Status: Chronic Code(s): M86.9 - Osteomyelitis, unspecified (4) Type II diabetes mellitus: Status: Chronic Code(s): E11.9 - Type 2 diabetes mellitus without complications (5) Pseudomonas aeruginosa infection: Status: Acute Code(s): A49.8 - Other bacterial infections of unspecified site (6) History of MRSA infection: Status: Chronic Code(s): Z86.14 - Personal history of Methicillin resistant Staphylococcus aureus infection (7) Smoker: Status: Chronic Code(s): F17.200 - Nicotine dependence, unspecified, uncomplicated (8) Severe malnutrition: Status: Acute Code(s): E43 - Unspecified severe protein-calorie malnutrition Medications at Discharge Home Medications hydrochlorothiazide 12.5 mg PO DAILY 06/16/18 losartan 100 mg PO DAILY 06/16/18 rosuvastatin 5 mg PO QHS 09/08/18 metformin 500 mg PO BID 04/30/20 aspirin 81 mg PO DAILY@0800 11/06/20 sennosides-docusate sodium 2 tab-cap PO QHS PRN 01/18/21 polyethylene glycol 3350 [Miralax] 17 g PO BID 04/01/21 [id number]-sytmic-da-opt [Romie (with collagen)] 1 packet PO BIDCM 30 Days #60 ea 04/05/21 linezolid 600 mg PO BID 14 Days #28 tab 04/05/21 meropenem 500 mg IV Q8 39 Days #117 ea 04/05/21 nicotine 21 mg TRANSDERMAL DAILY 30 Days #30 ea 04/05/21 nut.tx.gluc intol,lf,soy-fiber [Glucerna 1.2 Tim] 120 ml PO 4X/DAY 10 Days #40 ml 04/05/21 oxycodone 7.5 mg PO Q4H PRN 7 Days #30 ea 04/05/21 promethazine 25 mg PO Q4H PRN PRN 10 Days #20 tab 04/05/21 Hospital Course Operations None Procedures PICC line placement and Wound vac placement (VAC INITIALLY. AT DISCHARGE, SHE HAD DAKIN'S DRESSING CHANGES.) Summary of Care Provided Minutes Spent on Discharge: 35 Hospital Course: Patient underwent surgery on 03/11/20 where she underwent excision necrotic sacral pressure sore, Stage IV, with partial ostectomy for osteomyelitis. She was discharged the next day with the VAC on Ciprofloxacin antibiotics. The final cultures showed E. coli, Pseudomonas aeroginosa, Coag Negative Staph, Methicillin resistant, and Clostridium clostridioforme in the soft tissue and Enterococcus faecalis in the bone. Pathology was positive for acute osteomyelitis. The Ciprofloxacin was resistant to the Pseudomonas and does not cover for Enterococcus. It was recommended to the patient to be admitted to the hospital at this time for placement of a PICC line and to begin IV antibiotics with Meropenem. Will also need Zyvox which can be given po. She can be discharged when the arrangements have been made with the infusion company for the antibiotics. Continue the VAC while hospitalized. Anticipate up to 6 weeks IV antibiotics. Will check labs weekly (CBC, CMP, ESR, CRP). SHE WAS ADMITTED ON 04/01/21. THE NEXT DAY, HER PREVIOUS HOME HEALTH AGENCY CANCELLED HER. IT WAS VERY DIFFICULT FINDING A HOME HEALTH AGENCY FOR THIS PATIENT. SOME AGENCIES FELT HER CARE WAS TOO COMPLEX AT HOME. INITIALLY THE PATIENT HAD NO INTEREST IN GOING TO AN ECF. I HAD TALKED TO HER DAUGHTER ABOUT A POSSIBLE STAY AT AN LTAC WHICH COULD HANDLE THE COMPLEXITY OF CARE. DAUGHTER STATED IT WOULD BE TOO DIFFICULT FOR FAMILY TO VISIT IF [place] WERE OUT OF TOWN. SO IT WAS FINALLY DECIDED ON AN ECF IN [place]. PATIENT ONLY AGREED TO GO IF SHE WERE ALLOWED TO SMOKE. I EXPLAINED TO THE PATIENT AND HER DAUGHTER THAT GOING HOME WAS NOT AN OPTION IF THEY STILL WANTED TO BE TREATED. SINCE THERE IS NO HOME HEALTH AGENCY, THE ANTIBIOTICS IV COULD NOT BE GIVEN. DAUGHTER WAS AFRAID THAT WITHOUT CARE, IT WOULD HASTEN HER . HOSPICE WAS ALSO CONSULTED BUT THE DAUGHTER DIDN'T LIKE THE IDEA OF NOT GIVING ANTIBIOTICS AT HOME IV. SO THE ONE REMAINING OPTION THAT WOULD SOLVE ALL THE ISSUES IS TO GO BACK TO AN ECF IN [place]. PATIENT WAS IN AGREEMENT. ON 04/05/21 THE ARRANGEMENTS WERE MADE FOR THE PATIENT TO GO TO [facility]. WILL CONTINUE MEROPENEM IV FOR 6 WEEKS. WILL CONTINUE ZYVOX PO FOR 6 WEEKS. CONTINUE DAKIN'S DRESSING CHANGES TO THE SACRAL PRESSURE SORE DAILY. WHEN SHE RETURNS TO THE WOUND CENTER FOR A POSTDISCHARGE VISIT, CAN TRY TO PUT THE VAC ON AGAIN. CONDITION UPON DISCHARGE IS GOOD. Physical Exam Narrative General - Alert and Oriented. Abdomen - Soft and nondistended. Lower back/sacral area - Sacral pressure sore is stable. Some granulation tissue present. Some tenderness to palpation. On the right sacral wound edge is another beginning area of skin necrosis. May need further excision and debridement. Will monitor. Psych - Normal mood and affect. Weight / BMI Weight Weight: 126 lb 5.198 oz Body Mass Index (BMI) 21.0 ABG / Lab / Microbiology Data Attestation: I reviewed the patient's lab results. Result Diagrams: 04/05/21 06:31 04/05/21 06:31 Microbiology: Microbiology 04/05/21 15:20 Mucosa - Nasopharyngeal SARS-CoV-2 Antigen (Rapid) - Final D/C Instructions Call your doctor if your incision/area has: Continuous Slow Oozing, Sudden Increased Bleeding, Increased Pain/ Swelling, Increased Redness, Foul Smelling Discharge and Swelling at the incision site Call your doctor if you observe: Fever of 101 or Higher, Inability to urinate, Inability to have a bowel movement, Dizziness, Chest pain, Calf discomfort and Uncontrolled pain Cleanse incision/area with: Soap & Water Additional Dressing/Incision Instructions: Wound VAC to be changed 3 times per week. VAC to be at 150 mmHg. When changing wound VAC, cleanse the wound and surrounding skin with soap and water. When she goes to the Wound center, please bring VAC supplies to have the dressing changed. Please Follow Up With: Alexandrea Saleh When: At the wound healing center on 04/15/21. [phone] Meaningful Use Info Meaningful Use Diagnoses (Choose all that apply): None applicable Discharge Plan Admission Admit Date/Time: 04/02/21 16:16 Attending Provider: Riki Aguirre Primary Care Provider: Ifeanyi Duong Discharge Orders/Prescriptions Prescriptions: New linezolid 600 mg Tablet 600 mg PO BID 14 Days Qty: 28 RF: 0 Glucerna 1.2 Tim 0.06-1.2 gram-kcal/mL Liquid 120 ml PO 4X/DAY 10 Days Qty: 40 RF: 4 meropenem 500 mg Recon Soln 500 mg IV Q8 39 Days Qty: 117 RF: 0 promethazine 25 mg Tablet 25 mg PO Q4H PRN PRN (Reason: Nausea/Vomiting) 10 Days Qty: 20 RF: 0 nicotine 21 mg/24 hr Patch 24 Hour 21 mg transdermal DAILY 30 Days Qty: 30 RF: 1 Romie (with collagen) 7-7-1.5 gram Powder In Packet 1 packet PO BIDCM 30 Days Qty: 60 RF: 1 Continued hydrochlorothiazide 25 MG tablet 12.5 mg PO DAILY RF: 0 losartan 100 MG tablet 100 mg PO DAILY RF: 0 rosuvastatin 5 MG tablet 5 mg PO QHS RF: 0 metformin 500 MG tablet 500 mg PO BID RF: 0 aspirin 81 MG tablet,chewable 81 mg PO DAILY@0800 RF: 0 sennosides-docusate sodium 8.6-50 mg Tablet 2 tab-cap PO QHS PRN (Reason: Constipation) RF: 0 polyethylene glycol 3350 [Miralax] 17 gram Powder In Packet 17 g PO BID RF: 0 oxycodone 7.5 mg Tablet, Oral Only 7.5 mg PO Q4H PRN (Reason: Pain) 7 Days Qty: 30 RF: 0 Referrals / Follow Up: Ifeanyi Duong MD [Primary Care Provider] - Disposition Disposition (needs filled in before D/C Order can be placed): Detention Facility
== END 2021-04-05 17:50 | disposition skilled nursing facility (03) | DRG 637 ==
PROVIDERS: Admitting Provider Surgery; PCP Family Medicine; Visit Provider Surgery
DX: E11.69 Type 2 diabetes mellitus with other specified complication (principal); L89.154 Pressure ulcer of sacral region, stage 4; E43 Unspecified severe protein-calorie malnutrition; E11.52 Type 2 diabetes mellitus with diabetic peripheral angiopathy with gangrene; M46.28 Osteomyelitis of vertebra, sacral and sacrococcygeal region; E11.621 Type 2 diabetes mellitus with foot ulcer; B96.5 Pseudomonas (aeruginosa) (mallei) (pseudomallei) as the cause of diseases classified elsewhere; Z68.21 Body mass index [BMI] 21.0-21.9, adult; F17.210 Nicotine dependence, cigarettes, uncomplicated; B96.20 Unspecified Escherichia coli [E. coli] as the cause of diseases classified elsewhere; B95.62 Methicillin resistant Staphylococcus aureus infection as the cause of diseases classified elsewhere; I48.91 Unspecified atrial fibrillation; I25.10 Atherosclerotic heart disease of native coronary artery without angina pectoris; K21.9 Gastro-esophageal reflux disease without esophagitis; R13.10 Dysphagia, unspecified; Z93.3 Colostomy status; I69.391 Dysphagia following cerebral infarction; Z79.899 Other long term (current) drug therapy; Z79.84 Long term (current) use of oral hypoglycemic drugs; Z79.82 Long term (current) use of aspirin; N31.9 Neuromuscular dysfunction of bladder, unspecified
CPT/HCPCS: 11043; 11046; 36415; 36569; 71045; 80048; 80053; 82962; 84134; 85027; 85652; 86140; 87426; 97110; 97162; 97166; 97535; 97802; 97803; 99406; J2185; J7040; J7120; A4216

== ENCOUNTER 2021-04-22 08:06 | Outpatient (RCR) | payer MEDICARE, MEDICAID, SELFPAY ==
[2021-04-14 00:12] VITALS: BP 141/110; PULSE 125; RESP 18; TEMP 36.2
== END 2021-04-22 08:06 | disposition home or self-care (01) ==
LOC: WC 08:06
PROVIDERS: PCP Family Medicine; Visit Provider Nurse Practitioner Family
DX: Z09 Encounter for follow-up examination after completed treatment for conditions other than malignant neoplasm (principal)

== ENCOUNTER 2021-04-26 16:03 | Emergency (ER) | payer MEDICARE, MEDICAID, SELFPAY ==
[2021-04-26] VITALS (9 sets, daily range): BP systolic 101–117; BP diastolic 54–79; PULSE 103–115; RESP 17–20; TEMP 36.3–37.2; O2SAT 88–98; BMI 22.3
--- NOTE | 2021-04-26 16:41 | EKG12_ITS ---
Test Reason : ABN LABS Blood Pressure : / mmHG Vent. Rate : 102 BPM Atrial Rate : 102 BPM P-R Int : 136 ms QRS Dur : 074 ms QT Int : 356 ms P-R-T Axes : 000 064 076 degrees QTc Int : 463 ms Sinus tachycardia with occasional Premature ventricular complexes Otherwise normal ECG Confirmed by RICKI SAUCEDO, TOÑITO ([id number]), proposal editor ROCKY ANGELA ([id number]) on 04/30/2021 9:11:57 AM Referred By: MIGUEL Confirmed By:TOÑITO ROBISON MD
--- NOTE | 2021-04-26 16:41 | RAD_ITS ---
STUDY: X-RAY CHEST REASON FOR EXAM: Female, 71 years old. Hypoxia TECHNIQUE: Frontal view of the chest COMPARISON: 03/06/21 FINDINGS: The lungs are clear. There are no pleural effusions. There is no pneumothorax. The heart is normal in size. Again noted are calcified mediastinal lymph nodes, consistent with prior granulomatous disease. There is a right-sided PICC line with its tip in the superior vena cava. The visualized osseous structures are within normal limits. RAD/Chest 1 View (Portable) IMPRESSION: No acute thoracic pathology. Electronically Signed: Chris Morrison MD at 17:28 EDT Tel , Service support ,
--- NOTE | 2021-04-26 16:42 | EX.ED.DYSGE1 ---
HPI History of Present Illness Chief Complaint: Abn Labs Informant: patient and SNF Narrative Narrative: 71-year-old female presents from [facility] for abnormal labs. She is found on routine blood work to have a hemoglobin of 6.8 today. She denies any blood in emesis or from the colostomy bag. Patient has a stage IV decubitus of her sacrum. She was in the hospital in March. Recommendation was that the patient be made hospice however she remains a full code. Patient cannot tell me why she has had a colectomy. She is receiving meropenem through a right PICC line. Noted history of atrial fibrillation. [facility] Medical History Atrial fibrillation CAD (coronary artery disease) Chronic indwelling Huston catheter Chronic neck pain Chronic ulcer of left heel with fat layer exposed Colostomy in place Decubitus ulcer of left heel, stage 4 Dementia Depression Dysphagia following cerebrovascular accident (CVA) GERD (gastroesophageal reflux disease) Gout History of MRSA infection History of pressure ulcer Intertrochanteric fracture of left hip Left humeral fracture Neurogenic bladder On home oxygen therapy Osteoporosis PAD (peripheral artery disease) Smoker Stroke/cerebrovascular accident Tobacco abuse Type II diabetes mellitus Vitamin D deficiency Home Medications hydrochlorothiazide 12.5 mg PO DAILY 06/16/18 [History Last Taken 03/31/21 12.5 MG] losartan 100 mg PO DAILY 06/16/18 [History Last Taken 03/31/21 100 MG] metformin 500 mg PO BID 04/30/20 [History Last Taken 03/31/21 1700] aspirin 81 mg PO DAILY@0800 11/06/20 [History Last Taken 03/31/21 0800] sennosides-docusate sodium 2 tab-cap PO QHS PRN 01/18/21 [History Last Taken 03/31/21 2100] polyethylene glycol 3350 [Miralax] 17 g PO BID 04/01/21 [History Last Taken Unknown] [id number]-[id number]-[id number]-cn-ugy [Romie (with collagen)] 1 packet PO BIDCM 30 Days #60 ea 04/05/21 [Rx Last Taken Unknown] linezolid 600 mg PO BID 14 Days #28 tab 04/05/21 [Rx Last Taken Unknown] meropenem 500 mg IV Q8 39 Days #117 ea 04/05/21 [Rx Last Taken Unknown] oxycodone 7.5 mg PO Q4H PRN 7 Days #30 ea 04/05/21 [Rx Last Taken Unknown] promethazine 25 mg PO Q4H PRN PRN 10 Days #20 tab 04/05/21 [Rx Last Taken Unknown] atorvastatin 10 mg PO DAILY 04/26/21 [History Last Taken Unknown] bisacodyl [address] DAILY PRN 04/26/21 [History Last Taken Unknown] ferrous fumarate 150 mg PO DAILY 04/26/21 [History Last Taken Unknown] magnesium hydroxide [Milk of Magnesia] 400 mg PO DAILY PRN 04/26/21 [History Last Taken Unknown] multivitamin 1 tab PO DAILY 04/26/21 [History Last Taken Unknown] sodium phosphates [Enema] [address] DAILY PRN 04/26/21 [History Last Taken Unknown] Allergy/AdvReac Type Severity Reaction Status Date / Time amoxicillin [From Augmentin] Allergy Rash Verified 04/26/21 16:06 atorvastatin [From Lipitor] Allergy Other Verified 04/26/21 16:06 clavulanic acid Allergy Rash Verified 04/26/21 16:06 [From Augmentin] gabapentin Allergy Nausea Verified 04/26/21 16:06 lisinopril Allergy PT UNSURE Verified 04/26/21 16:06 OF REACTION mold Allergy PT UNSURE Verified 04/26/21 16:06 OF REACTION pollen extracts Allergy PT UNSURE Verified 04/26/21 16:06 OF REACTION quinapril [From Accupril] Allergy Rash Verified 04/26/21 16:06 ragweed pollen Allergy PT UNSURE Verified 04/26/21 16:06 OF REACTION simvastatin [From Zocor] Allergy PT UNSURE Verified 04/26/21 16:06 OF REACTION tramadol Allergy PT UNSURE Verified 04/26/21 16:06 OF REACTION tuberculin, purified protein Allergy PT UNSURE Verified 04/26/21 16:06 deriva OF REACTION fluoxetine AdvReac Other Verified 04/26/21 16:06 Family History Mother Tuberculosis Father Heart disease CVA (cerebral vascular accident) Sister Multiple sclerosis Brother Heart disease Surgical History History of appendectomy History of lumpectomy of right breast History of partial hysterectomy History of right-sided carotid endarterectomy Hx of bladder repair surgery Hx of tonsillectomy Social History Smoking Status: Current every day smoker tobacco type: cigarettes Tobacco: How many years used: 53 second hand exposure: Yes alcohol intake: never substance use type: does not use caffeine: Yes what type of physical activity do you participate in: none frequency: does not exercise ROS ROS ED Constitutional Constitutional ED: Denies chills or weight loss Eyes Eyes: Denies change in vision or diplopia ENT ENT ED: Reports other Details: Hard of hearing ; Denies ear pain, rhinorrhea or sore throat Cardiovascular Cardiovascular: Reports palpitations; Denies chest pain, orthopnea or racing heartbeat Respiratory/Chest Respiratory/Chest: Denies cough, dyspnea or orthopnea Gastrointestinal Gastrointestinal: Denies abdominal pain, diarrhea, nausea or vomiting Genitourinary Genitourinary ED: Denies dysuria, hematuria or urinary frequency Musculoskeletal Musculoskeletal: Reports back pain; Denies arthralgias or myalgias Integumentary Reports other Details: Decubitus ulcer sacrum ; Denies abscess or rash Neurologic Neurologic: Denies headache(s) or weakness Psychiatric Psychiatric: Denies anxiety, depression, suicidal ideation or suicidal thoughts Endocrine Endocrinology: Denies polydipsia, polyphagia or polyuria Allergic/Immunologic Allergic/Immunologic ED: Denies mouth swelling, tongue swelling or urticaria EXAM Physical Exam Const Vital Signs: 04/26/21 16:06 04/26/21 16:11 04/26/21 17:23 Temperature 98.9 F Temperature Source Temporal Pulse Rate 113 H 115 H 103 H Respiratory Rate 20 H 19 H 17 Respiratory Effort Normal Non-Labored Respiratory Pattern Normal Blood Pressure 109/76 106/62 Blood Pressure Mean 87 76 Pulse Ox 88 92 96 Oxygen Delivery Method Room Air Nasal Cannula Nasal Cannula Oxygen Flow Rate (L/min) 2 2 Positive well nourished and well developed General Appearance ED: well developed HEENT Reports normocephalic, head/scalp atraumatic and moist mucous membranes Eyes PERRL and EOMs intact bilaterally Neck no lymphadenopathy, supple and no JVD Resp normal respiratory effort and clear to auscultation bilaterally Cardio no murmurs Rate: other Other Details: Irregularly irregular tachycardic rhythm GI normal to inspection, nondistended, normoactive bowel sounds and non-tender GI Narrative: Brown stool at colostomy site Palpation: soft Back/Spine no CVA tenderness and normal ROM Extremity normal to inspection Extremity Narrative: PICC line present right arm appears without complication General Extremety ED: Negative for edema General Extremity: Negative for edema Neuro oriented x3 and CN's II-XII intact bilaterally Neuro Narrative: Global weakness Sensorium / Orientation: alert Psych mental status grossly normal Mood & Affect: Negative for depressed or tearful Skin no rashes or lesions noted Skin Narrative: Stage IV decubitus ulcer MDM MDM MDM Narrative Medical decision making narrative: Patient's hemoglobin here is 7.6. She is mildly tachycardic. Patient will be transfused 1 unit. Lab Data Attestation: I reviewed the patient's lab results. Labs: Laboratory Results - last 24 hr 04/26/21 04/26/21 04/26/21 16:11 16:11 16:11 WBC 7.7 RBC 3.07 L Hgb 7.6 L Hct 25.0 L MCV 81.4 MCH 24.8 L MCHC 30.4 L RDW Std Deviation 47.5 H RDW Coeff of Mirza 18.0 H Plt Count 392 MPV 9.7 Immature Gran % (Auto) 0.600 Neut % (Auto) 72.4 H Lymph % (Auto) 12.8 L [place] % (Auto) 13.4 H Eos % (Auto) 0.5 Baso % (Auto) 0.3 Absolute Neuts (auto) 5.6 Absolute Lymphs (auto) 0.99 Nucleated RBC % 0 PT INR APTT Sodium 133 L Potassium 3.7 Chloride 97 L Carbon Dioxide 34.0 H Anion Gap 2 L BUN 13 Creatinine 0.25 L Estim Creat Clear Calc 43.91 Est GFR (MDRD) Af Amer 350 Est GFR (MDRD) Non-Af 290 BUN/Creatinine Ratio 52.4 H Glucose 105 Calcium 8.7 Total Bilirubin 0.40 AST 8 L ALT 9 L Alkaline Phosphatase 122 H Total Protein 5.9 L Albumin 2.4 L Globulin 3.5 Albumin/Globulin Ratio 0.7 L Blood Type A NEGATIVE Antibody Screen NEGATIVE Crossmatch 04/26/21 04/26/21 16:11 16:52 WBC RBC Hgb Hct MCV MCH MCHC RDW Std Deviation RDW Coeff of Mirza Plt Count MPV Immature Gran % (Auto) Neut % (Auto) Lymph % (Auto) [place] % (Auto) Eos % (Auto) Baso % (Auto) Absolute Neuts (auto) Absolute Lymphs (auto) Nucleated RBC % PT 13.7 INR 1.1 APTT 43.8 H Sodium Potassium Chloride Carbon Dioxide Anion Gap BUN Creatinine Estim Creat Clear Calc Est GFR (MDRD) Af Amer Est GFR (MDRD) Non-Af BUN/Creatinine Ratio Glucose Calcium Total Bilirubin AST ALT Alkaline Phosphatase Total Protein Albumin Globulin Albumin/Globulin Ratio Blood Type Antibody Screen Crossmatch See Detail Radiography Diagnostic Testing: Radiology Impression Chest X-Ray 04/26/21 16:41 IMPRESSION: No acute thoracic pathology. Electronically Signed: Chris Morrison MD at 17:28 EDT Tel , Service support , EKG Initial EKG: Attestation: I personally reviewed and interpreted this EKG as follows: Comments: EKG shows atrial fibrillation at a rate of 102. Discharge Plan Triage Chief Complaint: Abn Labs ED Provider: Blade Eller Dx/Rx/DC Orders Clinical Impression: Atrial fibrillation, Anemia of chronic disease Instructions: ED Anemia, Type Not Specified (Adult) Prescriptions: No Action hydrochlorothiazide 25 MG tablet 12.5 mg PO DAILY RF: 0 losartan 100 MG tablet 100 mg PO DAILY RF: 0 metformin 500 MG tablet 500 mg PO BID RF: 0 aspirin 81 MG tablet,chewable 81 mg PO DAILY@0800 RF: 0 sennosides-docusate sodium 8.6-50 mg Tablet 2 tab-cap PO QHS PRN (Reason: Constipation) RF: 0 polyethylene glycol 3350 [Miralax] 17 gram Powder In Packet 17 g PO BID RF: 0 linezolid 600 mg Tablet 600 mg PO BID 14 Days Qty: 28 RF: 0 meropenem 500 mg Recon Soln 500 mg IV Q8 39 Days Qty: 117 RF: 0 promethazine 25 mg Tablet 25 mg PO Q4H PRN PRN (Reason: Nausea/Vomiting) 10 Days Qty: 20 RF: 0 Romie (with collagen) 7-7-1.5 gram Powder In Packet 1 packet PO BIDCM 30 Days Qty: 60 RF: 1 oxycodone 7.5 mg Tablet, Oral Only 7.5 mg PO Q4H PRN (Reason: Pain) 7 Days Qty: 30 RF: 0 multivitamin Tablet 1 tab PO DAILY RF: 0 atorvastatin 10 mg Tablet 10 mg PO DAILY RF: 0 bisacodyl 10 mg Suppository [address] DAILY PRN (Reason: Constipation) RF: 0 Enema 19-7 gram/118 mL Enema [address] DAILY PRN (Reason: Constipation) RF: 0 magnesium hydroxide [Milk of Magnesia] 400 mg/5 mL Suspension 400 mg PO DAILY PRN (Reason: Constipation) RF: 0 ferrous fumarate 456 mg (150 mg iron) Tablet 150 mg PO DAILY RF: 0 Primary Care Provider: Tawanda Sood Referrals: Tawanda Sood MD [Primary Care Provider] - [facility] appointment Disposition Disposition: Longterm Facility Discharge Location: [facility]
[2021-04-26 16:51] LABS: Absolute Lymphocyte Count 0.99 X10^3/uL (0.83-4.51); Absolute Neutrophil Count 5.6 X10^3/uL (2.0-7.7); Basophil# 0.02 X10^3/uL; Basophil% 0.3 % (0-1); Eosinophil# 0.04 X10^3/uL; Eosinophils% 0.5 % (0-5); Hemoglobin 7.6 g/dL (12.0-15.0); Lymphocyte # 0.99 X10^3/ul (0.83-4.51); Lymphocyte % 12.8 % (19-41); Mean Corp Hgb Conc 30.4 g/dL (32-36); Mean Corpuscular Hgb 24.8 pg (27.0-32.0); Mean Corpuscular Volume 81.4 fL (81-99); Mean Platelet Vol. 9.7 fl (6.2-12.0); Monocyte# 1.04 X10^3/uL; Monocyte% 13.4 % (0-10); NRBC Flagged by Analyzer 0 % (0-5); Neutrophil % 72.4 % (47-70); Platelet Count 392 K/mm3 (150-450); RBC Distribution Width SD 47.5 fl (35.1-43.9); Red Blood Count 3.07 M/mm3 (4.2-5.4); White Blood Count 7.7 K/mm3 (4.4-11.0)
[2021-04-26 17:05] LABS: ALB/GLOB Ratio 0.7 RATIO (0.9-2.4); AST(SGOT) 8 U/L (15-37); Alanine Aminotransfer ALT/SGPT 9 U/L (13-56); Albumin, Serum 2.4 g/dL (3.2-5.0); Alkaline Phosphatase 122 U/L (45-117); Anion Gap 2 (5-15); BUN 13 mg/dL (7-18); BUN/Creat Ratio 52.4 RATIO (10-20); Calcium,Total 8.7 mg/dL (8.5-10.1); Chloride 97 mmol/L (98-107); Creatinine, Serum 0.25 mg/dL (0.55-1.02); EST Glomerular Filtration Rate 290 mL/min (>60); Est Glom Filt Rate - Afr Amer 350 mL/min (>60); Estimated Creatinine Clearance 43.91 ml/min; Globulin 3.5 g/dL (2.2-4.2); Glucose 105 mg/dL (74-106); Potassium 3.7 mmol/L (3.5-5.1); Protein, Total 5.9 g/dL (6.4-8.2); Sodium Level 133 mmol/L (136-145)
[2021-04-26 17:34] LABS: International Normalized Ratio 1.1; Prothrombin Time (Protime)PT. 13.7 SECONDS (11.7-14.9)
[2021-04-26 17:35] LABS: Partial Thromboplast Time 43.8 Seconds (24.1-36.2)
--- NOTE | 2021-04-26 21:13 | ED.RN ---
spoke to Sada Orta, updated on pt discharge.
--- NOTE | 2021-04-26 21:15 | ED.RN ---
PATIENT IS REFUSING ANY OTHER AMBULANCE SERVICE BESIDES [facility] TO TRANSPORT HER HOME. SHE ADAMANTLY REFUSES PHYSICIANS OR ANY OTHER SERVICES. THIS RN CALLED [facility] PER PATIENT REQUEST
--- NOTE | 2021-04-26 21:22 | ED.RN ---
this RN spoke with Chloé-daughter and updated her on pt transfer back to [facility]
== END 2021-04-26 21:45 | disposition skilled nursing facility (03) ==
PROVIDERS: Emergency Provider Emergency Medicine; PCP Family Medicine
DX: I48.91 Unspecified atrial fibrillation (principal); L89.154 Pressure ulcer of sacral region, stage 4; D63.8 Anemia in other chronic diseases classified elsewhere; I25.10 Atherosclerotic heart disease of native coronary artery without angina pectoris; N31.9 Neuromuscular dysfunction of bladder, unspecified; E11.51 Type 2 diabetes mellitus with diabetic peripheral angiopathy without gangrene; F03.90 Unspecified dementia, unspecified severity, without behavioral disturbance, psychotic disturbance, mood disturbance, and anxiety; F17.210 Nicotine dependence, cigarettes, uncomplicated; G89.29 Other chronic pain; K21.9 Gastro-esophageal reflux disease without esophagitis; Z79.84 Long term (current) use of oral hypoglycemic drugs; Z86.14 Personal history of Methicillin resistant Staphylococcus aureus infection; Z93.3 Colostomy status; Z79.899 Other long term (current) drug therapy; Z79.82 Long term (current) use of aspirin; Z99.81 Dependence on supplemental oxygen; R00.0 Tachycardia, unspecified; I49.3 Ventricular premature depolarization
CPT/HCPCS: 36430; 36592; 71045; 80053; 82274; 85025; 85610; 85730; 86850; 86900; 86901; 86920; 93005; 99285; J7030; P9016; A4216

== ENCOUNTER 2021-05-18 13:08 | Emergency (ER) | payer MEDICARE, MEDICAID, SELFPAY ==
[2021-05-18 13:09] VITALS: PULSE 126; RESP 20; TEMP 36.7; O2SAT 98; BMI 26.9
--- NOTE | 2021-05-18 13:15 | EKG12_ITS ---
Test Reason : Blood Pressure : / mmHG Vent. Rate : 126 BPM Atrial Rate : 126 BPM P-R Int : 120 ms QRS Dur : 072 ms QT Int : 352 ms P-R-T Axes : 000 063 075 degrees QTc Int : 509 ms Sinus tachycardia with occasional Premature ventricular complexes Nonspecific T wave abnormality Abnormal ECG Confirmed by JAYESH SAUCEDO, CARRIE ([id number]), graphics editor ROCKY ANGELA ([id number]) on 05/21/2021 8:03:06 AM Referred By: GREER Confirmed By:GAIL MCCONNELL MD
[2021-05-18 13:55] LABS: Absolute Lymphocyte Count 1.21 X10^3/uL (0.83-4.51); Absolute Neutrophil Count 14.7 X10^3/uL (2.0-7.7); Basophil# 0.02 X10^3/uL; Basophil% 0.1 % (0-1); Eosinophil# 0.03 X10^3/uL; Eosinophils% 0.2 % (0-5); Hematocrit 31.9 % (37-47); Hemoglobin 10.3 g/dL (12.0-15.0); Lymphocyte # 1.21 X10^3/ul (0.83-4.51); Mean Corp Hgb Conc 32.3 g/dL (32-36); Mean Corpuscular Hgb 26.3 pg (27.0-32.0); Mean Corpuscular Volume 81.6 fL (81-99); Mean Platelet Vol. 9.5 fl (6.2-12.0); Monocyte# 1.26 X10^3/uL; Monocyte% 7.3 % (0-10); NRBC Flagged by Analyzer 0 % (0-5); Neutrophil # 14.74 X10^3/uL (2.7-7.7); Neutrophil % 84.8 % (47-70); POSITIVE MORPHOLOGY YES; Platelet Count 261 K/mm3 (150-450); RBC Distribution Width CV 23.5 % (11.6-14.6); RBC Distribution Width SD 61.4 fl (35.1-43.9); Red Blood Count 3.91 M/mm3 (4.2-5.4); White Blood Count 17.4 K/mm3 (4.4-11.0)
[2021-05-18 13:56] LABS: Differential Indicated SCAN CRITERIA MET
--- NOTE | 2021-05-18 14:05 | RAD_ITS ---
EXAM: XR CHEST, 1 VIEW : 1950 CLINICAL INDICATION: chest pain TECHNIQUE: Frontal view of the chest. This report was created using [employer] report generation technology. COMPARISON: 04/26/2021 FINDINGS: LUNGS AND PLEURAL SPACES: Unremarkable. No consolidation or edema. No pneumothorax. No effusion. HEART: Unremarkable. Cardiac silhouette not enlarged. MEDIASTINUM: Central airways and mediastinal contour are unremarkable. BONES/JOINTS: Unremarkable. SOFT TISSUES: Unremarkable. TUBES, LINES AND DEVICES: Right-sided PICC line in stable position. OTHER FINDINGS: Patient is rotated. RAD/Chest 1 View (Portable) IMPRESSION: No acute pulmonary abnormality. Right-sided PICC line in stable position. at 1455 Reported and signed by: Charles Perez MD Electronically Signed: Charles Perez MD at 14:54 EDT Tel , Service support ,
[2021-05-18 14:16] LABS: Anion Gap 7 (5-15); BUN 10 mg/dL (7-18); BUN/Creat Ratio 60.2 RATIO (10-20); Calcium,Total 8.7 mg/dL (8.5-10.1); Chloride 91 mmol/L (98-107); Creatinine, Serum 0.17 mg/dL (0.55-1.02); EST Glomerular Filtration Rate 460 mL/min (>60); Est Glom Filt Rate - Afr Amer 557 mL/min (>60); Estimated Creatinine Clearance 36.53 ml/min; Glucose 92 mg/dL (74-106); Potassium 3.3 mmol/L (3.5-5.1); Sodium Level 130 mmol/L (136-145); Troponin-I HS 66 pg/mL (3.0-54.0)
[2021-05-18 14:23] LABS: Anisocytosis 1+
[2021-05-18 14:26] LABS: Bacteria 0 SEEN /hpf (None Seen); Mucous, Urine 0 SEEN /hpf (<or=2+); Red Blood Cells-Urine 0 SEEN /hpf (0-5); Squamous Epithelial Cells - UA 0 SEEN /hpf (5-10)
[2021-05-18 14:27] LABS: Color, Urine Yellow (Yellow); Glucose, Dipstick Normal (Normal); Ketone-Dipstick Negative (Negative); Leukocyte Esterase-Dipstick 500 /ul (Negative); Nitrite-Dipstick Negative (Negative); Occult Blood-Urine 150 /ul (Negative); Protein-Dipstick 30 mg/dl (Negative); Urine Bilirubin Dipstick Negative (Negative); Urine Clarity Sl. Cloudy (Clear); Urine Urobilinogen Normal (Normal)
[2021-05-18 14:33] LABS: Amorphous Sediment 1+; White Blood Cells >100 SEEN /hpf (0-5); Yeast-Urine 1+ /hpf (None Seen)
[2021-05-18] MEDS: 0.9% Normal Saline 1,000 ML 999 ML IV ×2 (14:33→17:04)
[2021-05-18 14:41] LABS: International Normalized Ratio 1.1; Prothrombin Time (Protime)PT. 13.8 SECONDS (11.7-14.9)
[2021-05-18 15:18] VITALS: BP 132/74; PULSE 123; RESP 24; O2SAT 97
[2021-05-18 15:44] LABS: Lactic Acid 3.7 mmol/L (0.4-1.9)
--- NOTE | 2021-05-18 15:47 | CT_ITS ---
EXAM: CT ABDOMEN AND PELVIS WITH INTRAVENOUS CONTRAST : 1950 CLINICAL INDICATION: pain TECHNIQUE: Helically acquired images were obtained of the abdomen and pelvis with intravenous contrast. This CT exam was performed using one or more of the following dose reduction techniques: automated exposure control, adjustment of the mA and/or kV according to patient size, and/or use of iterative reconstruction technique. This report was created using [employer] report generation technology. CONTRAST: IV 100mL Isovue-300 COMPARISON: None. FINDINGS: LOWER THORAX: There are small bilateral pleural effusions. There is consolidation in the lung bases greater on the right which may represent atelectasis or pneumonia. No cardiomegaly. ABDOMEN: LIVER: Unremarkable. Homogeneous. No focal mass. GALLBLADDER AND BILE DUCTS: Unremarkable. No calcified gallstones. No gallbladder distention or wall edema. No intra- or extrahepatic biliary ductal dilation. PANCREAS: Unremarkable. No focal cystic or solid mass. SPLEEN: Unremarkable. Normal size without focal cystic or solid mass. ADRENALS: Unremarkable. No nodules. KIDNEYS AND URETERS: Unremarkable. Normal renal size and position. No hydronephrosis. STOMACH AND BOWEL: Unremarkable. No stomach or bowel distention. No focal inflammatory change. PELVIS: APPENDIX: No evidence of acute appendicitis. BLADDER: There is a Huston catheter is within the bladder. REPRODUCTIVE: Unremarkable as visualized. No mass. ABDOMEN and PELVIS: INTRAPERITONEAL SPACE: Unremarkable. No ascites or other fluid collection. No free air. BONES/JOINTS: There is a subcapital fracture of the right femoral neck. There is orthopedic hardware across an old left femoral neck fracture. No suspicious lytic or blastic abnormality. SOFT TISSUES: Unremarkable. No discrete abdominal or pelvic wall hernia. VASCULATURE: Unremarkable. Abdominal aorta is non-dilated. LYMPH NODES: Unremarkable. No enlarged lymph nodes. CT/Abdomen/Pelvis W IV Cont ONLY IMPRESSION: 1. Subcapital fracture of the right femoral neck. 2. Bilateral effusions with bibasilar atelectasis or pneumonia greater on the right than on the left. Individualized dose optimization techniques were used for this CT. at 1705 Reported and signed by: Charles Perez MD Electronically Signed: Charles Perez MD at 17:04 EDT Tel , Service support ,
[2021-05-18 17:00] VITALS: BP 130/75; PULSE 121; RESP 20; O2SAT 96
--- NOTE | 2021-05-18 17:13 | EDS_ITS ---
HPI History of Present Illness Chief Complaint: General Illness Narrative Narrative: 71-year-old female presenting for evaluation of confusion. Apparently she has been more weak for the last couple of days. It is reported that she never misses a smoke break but has been not going to these. He also reported that she was on linezolid and meropenem which is now finished. Her family states that her initial sacral decubitus ulcer was improving however she developed 2 more. EMS reports that when they arrived she was alert and awake immediately and said that she was sleeping. There is no report of any fever or chills. Patient is not a very good informant and is very hard of hearing. [facility] Medical History Atrial fibrillation CAD (coronary artery disease) Chronic indwelling [place] catheter Chronic neck pain Chronic ulcer of left heel with fat layer exposed Colostomy in place Decubitus ulcer of left heel, stage 4 Dementia Depression Dysphagia following cerebrovascular accident (CVA) GERD (gastroesophageal reflux disease) Gout History of MRSA infection History of pressure ulcer Intertrochanteric fracture of left hip Left humeral fracture Neurogenic bladder On home oxygen therapy Osteoporosis PAD (peripheral artery disease) Smoker Stroke/cerebrovascular accident Tobacco abuse Type II diabetes mellitus Vitamin D deficiency Home Medications hydrochlorothiazide 12.5 mg PO DAILY 06/16/18 [History Last Taken 03/31/21 12.5 MG] losartan 100 mg PO DAILY 06/16/18 [History Last Taken 03/31/21 100 MG] metformin 500 mg PO BID 04/30/20 [History Last Taken 03/31/21 1700] aspirin 81 mg PO DAILY@0800 11/06/20 [History Last Taken 03/31/21 0800] sennosides-docusate sodium 2 tab-cap PO QHS PRN 01/18/21 [History Last Taken 03/31/21 2100] polyethylene glycol 3350 [Miralax] 17 g PO BID 04/01/21 [History Last Taken Unknown] [id number]-[id number]-[id number] [Romie (with collagen)] 1 packet PO BIDCM 30 Days #60 ea 04/05/21 [Rx Last Taken Unknown] oxycodone 7.5 mg PO Q4H PRN 7 Days #30 ea 04/05/21 [Rx Last Taken Unknown] promethazine 25 mg PO Q4H PRN PRN 10 Days #20 tab 04/05/21 [Rx Last Taken Unk nown] atorvastatin 10 mg PO DAILY 04/26/21 [History Last Taken Unknown] bisacodyl 10 mg KS DAILY PRN 04/26/21 [History Last Taken Unknown] ferrous fumarate 150 mg PO DAILY 04/26/21 [History Last Taken Unknown] magnesium hydroxide [Milk of Magnesia] 400 mg PO DAILY PRN 04/26/21 [History Last Taken Unknown] multivitamin 1 tab PO DAILY 04/26/21 [History Last Taken Unknown] sodium phosphates [Enema] 118 ml KS DAILY PRN 04/26/21 [History Last Taken Unknown] Allergy/AdvReac Type Severity Reaction Status Date / Time amoxicillin [From Augmentin] Allergy Rash Verified 05/18/21 13:14 atorvastatin [From Lipitor] Allergy Other Verified 05/18/21 13:14 clavulanic acid Allergy Rash Verified 05/18/21 13:14 [From Augmentin] gabapentin Allergy Nausea Verified 05/18/21 13:14 lisinopril Allergy PT UNSURE Verified 05/18/21 13:14 OF REACTION mold Allergy PT UNSURE Verified 05/18/21 13:14 OF REACTION pollen extracts Allergy PT UNSURE Verified 05/18/21 13:14 OF REACTION quinapril [From Accupril] Allergy Rash Verified 05/18/21 13:14 ragweed pollen Allergy PT UNSURE Verified 05/18/21 13:14 OF REACTION simvastatin [From Zocor] Allergy PT UNSURE Verified 05/18/21 13:14 OF REACTION tramadol Allergy PT UNSURE Verified 05/18/21 13:14 OF REACTION tuberculin, purified protein Allergy PT UNSURE Verified 05/18/21 13:14 deriva OF REACTION fluoxetine AdvReac Other Verified 05/18/21 13:14 Family History Mother Tuberculosis Father Heart disease CVA (cerebral vascular accident) Sister Multiple sclerosis Brother Heart disease Surgical History History of appendectomy History of lumpectomy of right breast History of partial hysterectomy History of right-sided carotid endarterectomy Hx of bladder repair surgery Hx of tonsillectomy Social History Smoking Status: Current every day smoker tobacco type: cigarettes Tobacco: How many years used: 53 second hand exposure: Yes alcohol intake: never substance use type: does not use caffeine: Yes what type of physical activity do you participate in: none frequency: does not exercise ROS ROS ED Constitutional Constitutional ED: Denies chills or fever(s) Eyes Eyes: Denies blurry vision or diplopia ENT ENT ED: Denies rhinorrhea or sore throat Cardiovascular Cardiovascular: Denies chest pain or palpitations Respiratory/Chest Respiratory/Chest: Denies cough or dyspnea Gastrointestinal Gastrointestinal: Denies abdominal pain, nausea or vomiting Genitourinary Genitourinary ED: Denies dysuria or hematuria Musculoskeletal Musculoskeletal: Reports other Details: Sacral pain and lower back pain Integumentary Reports other Details: Stage IV decubitus ulcer of the sacrum with 2 new stage III decubitus ulcers on the buttocks. Neurologic Neurologic: Denies headache(s) or paresthesias EXAM Physical Exam Const Vital Signs: 05/18/21 13:09 05/18/21 13:15 05/18/21 13:17 Temperature 98.1 F Temperature Source Oral Pulse Rate 126 H Respiratory Rate 20 H Respiratory Effort Normal Non-Labored Respiratory Pattern Normal Blood Pressure Blood Pressure Mean Pulse Ox 98 Oxygen Delivery Method Nasal Cannula Oxygen Flow Rate (L/min) 2 2 05/18/21 15:18 05/18/21 17:00 05/18/21 19:33 Temperature Temperature Source Pulse Rate 123 H 121 H 121 H Respiratory Rate 24 H 20 H 20 H Respiratory Effort Respiratory Pattern Blood Pressure 132/74 H 130/75 H 129/78 H Blood Pressure Mean 93 93 95 Pulse Ox 97 96 96 Oxygen Delivery Method Room Air Room Air Oxygen Flow Rate (L/min) Positive well nourished and unkempt General Appearance ED: unkempt HEENT Reports dry mucous membranes Negative for trauma Mouth ED: Yes dry mucous membranes Mouth: dry mucous membranes Eyes PERRL and EOMs intact bilaterally General Eye ED: Negative for pale conjunctiva or scleral icterus Resp normal respiratory effort Auscultation: diminished lung sounds bilateral (Bases) Cardio regular rate Rate: tachycardic GI normal to inspection, nondistended, normoactive bowel sounds Neuro CN's II-XII intact bilaterally Sensorium / Orientation: alert Psych Appearance: unkempt Skin Skin Narrative: Patient has stage IV decubitus ulcer with a clean dry dressing. There does not appear to be any cellulitic change surrounding this. There is also 2 new stage III cubitus ulcers on the bilateral buttocks. Patient had pain with rolling her to examine these. MDM MDM MDM Narrative Medical decision making narrative: Patient seen and examined for altered mental status although she appears to be alert it is difficult to have a conversation with her due to her ability to hear. She is also very tired. She is found to be tachycardic on arrival, but normotensive and afebrile. Patient was found to have a leukocytosis of 17.4. Her hemoglobin is above baseline at 10.3. Platelets 261. Patient's renal function appeared normal although her potassium was slightly low at 3.3. Since she had a white blood cell count and she was tachycardic I did order lactic acid and blood cultures as well as urinalysis and urine cultures. Urinalysis did not appear to be grossly infected especially since it was a cath sample with no bacteria in it but it was sent for culture. Chest x-ray on my interpretation showed no acute cardiopulmonary process and the radiologist did agree. I obtained an EKG which was sinus tachycardia with a ventricular rate of [address]-T wave changes on my interpretation. Her initial troponin was 66 which is elevated and her second troponin was 71 which had not significantly changed. Looking through the medical record it does appear that she has a chronically elevated troponin. She is not complaining of chest pain. Given that her urinalysis was negative as well as her chest x-ray I did get a CAT scan of the abdomen pelvis due to her previous history of decubitus ulcers as well as sacral osteomyelitis. The CT did show the lower lung peguero which is concerning for pulmonary effusions versus pneumonia and states she has a white blood count count she was treated with vancomycin and Zosyn. His CT did not show any nikolas osteomyelitis but did show that she had a broken right hip and specifically a right femoral neck fracture. There was no no report of fall. Patient's lactic acid returned at 3.7. Patient is likely septic with the only source being pneumonia and she is been treated with antibiotics and she has been given IV fluids. She remains normotensive but also remains tachycardic. Patient was discussed with Dr. Shah who is on-call for orthopedics who did not feel comfortable operating given that she was septic and had chronic sacral cubitus ulcers as well as history of sacral osteomyelitis. This was discussed with the family at length that she was incredibly ill and would need to be hospitalized but she would need orthopedics to be involved. Initially I was unable to find any hospital that would take her because of bed availability. I was going to admit the patient to [facility] to be treated for her infection until she can be transported to a place with would do orthopedic surgery. I was able to get her to [facility] after speaking with the trauma doctor because I have no known source of her inju ry and assumed it was a fall. I did obtain a CT brain which did not show acute intracranial abnormality but did show age-related change versus normal pressure hydrocephalus. I did speak with the family that the patient was hospice appropriate and likely she would not do well but they did not want to have hospice involved. They state that they have palliative care at her facility but they want her to be medically treated. Given this I will have the patient transferred and she is accepted ER to ER. She is in critical condition. Impression: 1. Right femoral neck fracture 2. History of sacral decubitus ulcer stage IV. 3. New sacral stage III decubitus ulcers. 4. Confusion 5. Pneumonia 6. Severe sepsis Lab Data Labs: Laboratory Results - last 24 hr 05/18/21 05/18/21 05/18/21 13:15 13:15 13:15 WBC 17.4 H RBC 3.91 L Hgb 10.3 L Hct 31.9 L MCV 81.6 MCH 26.3 L MCHC 32.3 RDW Std Deviation 61.4 H RDW Coeff of Mirza 23.5 H Plt Count 261 MPV 9.5 Immature Gran % (Auto) 0.600 Neut % (Auto) 84.8 H Lymph % (Auto) 7.0 L [place] % (Auto) 7.3 Eos % (Auto) 0.2 Baso % (Auto) 0.1 Absolute Neuts (auto) 14.7 H Absolute Lymphs (auto) 1.21 Nucleated RBC % 0 Anisocytosis 1+ PT 13.8 INR 1.1 Sodium 130 L Potassium 3.3 L Chloride 91 L Carbon Dioxide 32.0 Anion Gap 7 BUN 10 Creatinine 0.17 L Estim Creat Clear Calc 36.53 Est GFR (MDRD) Af Amer 557 Est GFR (MDRD) Non-Af 460 BUN/Creatinine Ratio 60.2 H Glucose 92 Lactic Acid Calcium 8.7 Troponin I High Sens 66 H Urine Color Urine Clarity Urine pH Ur Specific [place] Urine Protein Urine Glucose (UA) Urine Ketones Urine Occult Blood Urine Nitrite Urine Bilirubin Urine Urobilinogen Ur Leukocyte Esterase Urine RBC Urine WBC Ur Squamous Epith Cells Amorphous Sediment Urine Bacteria Urine Mucus Urine Yeast 05/18/21 05/18/21 05/18/21 14:20 15:05 17:08 WBC RBC Hgb Hct MCV MCH MCHC RDW Std Deviation RDW Coeff of Mirza Plt Count MPV Immature Gran % (Auto) Neut % (Auto) Lymph % (Auto) [place] % (Auto) Eos % (Auto) Baso % (Auto) Absolute Neuts (auto) Absolute Lymphs (auto) Nucleated RBC % Anisocytosis PT INR Sodium Potassium Chloride Carbon Dioxide Anion Gap BUN Creatinine Estim Creat Clear Calc Est GFR (MDRD) Af Amer Est GFR (MDRD) Non-Af BUN/Creatinine Ratio Glucose Lactic Acid 3.7 H* Calcium Troponin I High Sens 71 H Urine Color Yellow Urine Clarity Sl. Cloudy Urine pH 7.0 Ur Specific [place] 1.010 Urine Protein 30 H Urine Glucose (UA) Normal Urine Ketones Negative Urine Occult Blood 150 H Urine Nitrite Negative Urine Bilirubin Negative Urine Urobilinogen Normal Ur Leukocyte Esterase 500 H Urine RBC 0 SEEN Urine WBC >100 SEEN Ur Squamous Epith Cells 0 SEEN Amorphous Sediment 1+ Urine Bacteria 0 SEEN Urine Mucus 0 SEEN Urine Yeast 1+ Radiography Diagnostic Testing: Radiology Impression Chest X-Ray 05/18/21 14:05 IMPRESSION: No acute pulmonary abnormality. Right-sided PICC line in stable position. at 1455 Reported and signed by: Charles Perez MD Electronically Signed: Charles Perez MD at 14:54 EDT Tel , Service support , Abdomen/Pelvis CT 05/18/21 15:47 IMPRESSION: 1. Subcapital fracture of the right femoral neck. 2. Bilateral effusions with bibasilar atelectasis or pneumonia greater on the right than on the left. Individualized dose optimization techniques were used for this CT. at 1705 Reported and signed by: Charles Perez MD Electronically Signed: Charles Perez MD at 17:04 EDT Tel , Service support , Brain CT 05/18/21 17:33 IMPRESSION: Stable ventricular prominence and age-related changes. Normal pressure hydrocephalus cannot be excluded. Electronically Signed: Jurgen Guillen DO at 19:40 EDT Tel [phone], Service support , Critical Care Time Critical care time (excluding procedures): 30-74 minutes (74-minute) Discharge Plan Triage Chief Complaint: General Illness ED Provider: Ian Vargas Dx/Rx/DC Orders Prescriptions: No Action hydrochlorothiazide 25 MG tablet 12.5 mg PO DAILY RF: 0 losartan 100 MG tablet 100 mg PO DAILY RF: 0 metformin 500 MG tablet 500 mg PO BID RF: 0 aspirin 81 MG tablet,chewable 81 mg PO DAILY@0800 RF: 0 sennosides-docusate sodium 8.6-50 mg Tablet 2 tab-cap PO QHS PRN (Reason: Constipation) RF: 0 polyethylene glycol 3350 [Miralax] 17 gram Powder In Packet 17 g PO BID RF: 0 promethazine 25 mg Tablet 25 mg PO Q4H PRN PRN (Reason: Nausea/Vomiting) 10 Days Qty: 20 RF: 0 Romie (with collagen) 7-7-1.5 gram Powder In Packet 1 packet PO BIDCM 30 Days Qty: 60 RF: 1 oxycodone 7.5 mg Tablet, Oral Only 7.5 mg PO Q4H PRN (Reason: Pain) 7 Days Qty: 30 RF: 0 multivitamin Tablet 1 tab PO DAILY RF: 0 atorvastatin 10 mg Tablet 10 mg PO DAILY RF: 0 bisacodyl 10 mg Suppository 10 mg KS DAILY PRN (Reason: Constipation) RF: 0 Enema 19-7 gram/118 mL Enema 118 ml KS DAILY PRN (Reason: Constipation) RF: 0 magnesium hydroxide [Milk of Magnesia] 400 mg/5 mL Suspension 400 mg PO DAILY PRN (Reason: Constipation) RF: 0 ferrous fumarate 456 mg (150 mg iron) Tablet 150 mg PO DAILY RF: 0 Primary Care Provider: Tawanda Sood Referrals: Tawanda Sood MD [Primary Care Provider] - Disposition Disposition: Acute Care Hospital Discharge Location: [facility] Discharge Date/Time: 05/18/21 19:36
[2021-05-18 17:29] LABS: Troponin-I HS 71 pg/mL (3.0-54.0)
--- NOTE | 2021-05-18 17:33 | CT_ITS ---
STUDY: CT BRAIN WITHOUT CONTRAST REASON FOR EXAM: Female, 71 years old. Confusion RADIATION DOSAGE (If Supplied By Facility): CTDIvol = ( 44.99 ) mGy, DLP = ( 812.98 ) mGycm TECHNIQUE: Transaxial CT imaging of the brain was performed without administration of intravenous contrast material. Individualized dose optimization techniques were used for this CT. COMPARISON: 06/18/2020 FINDINGS: Normal soft tissue structures. Normal calvarium. Prominent size ventricles similar to previous study. Normal extra-axial spaces for the patient''s age. Bilateral white matter microangiopathic ischemic changes of the cerebral hemispheres. Normal basal ganglia and thalami. Normal brainstem. Normal cerebellum. There is no intracranial hemorrhage. There are no findings of an acute ischemic infarction. Normal visualized paranasal sinuses. CT/Brain/Head without Contrast IMPRESSION: Stable ventricular prominence and age-related changes. Normal pressure hydrocephalus cannot be excluded. Electronically Signed: Jurgen Guillen DO at 19:40 EDT Tel [phone], Service support ,
[2021-05-18 19:16] LABS: Reflex Lactate? Y
--- NOTE | 2021-05-18 19:17 | ED.RN ---
TRANSPORT ARRIVED AT 1854. REPORT GIVEN. FAMILY REQUESTS TIME WITH PT BEFORE SHE IS TRANSPORTED. EMS CREW STANDING OUTSIDE ROOM WAITING FOR FAMILY TO ALLOW THEM TO TRANSPORT.
[2021-05-18 19:33] VITALS: BP 129/78; PULSE 121; RESP 20; O2SAT 96
== END 2021-05-18 19:36 | disposition short-term general hospital (02) ==
PROVIDERS: Emergency Provider Student in an Organized Health Care Education/Training Program; PCP Family Medicine
DX: S72.001A Fracture of unspecified part of neck of right femur, initial encounter for closed fracture (principal); L89.153 Pressure ulcer of sacral region, stage 3; R41.0 Disorientation, unspecified; J18.9 Pneumonia, unspecified organism; A41.9 Sepsis, unspecified organism; F17.210 Nicotine dependence, cigarettes, uncomplicated; I25.10 Atherosclerotic heart disease of native coronary artery without angina pectoris; E11.51 Type 2 diabetes mellitus with diabetic peripheral angiopathy without gangrene; Z79.82 Long term (current) use of aspirin; Z79.84 Long term (current) use of oral hypoglycemic drugs; Z79.899 Other long term (current) drug therapy; Z93.3 Colostomy status; Z86.14 Personal history of Methicillin resistant Staphylococcus aureus infection; X58.XXXA Exposure to other specified factors, initial encounter
CPT/HCPCS: 36415; 36592; 70450; 71045; 74177; 80048; 81001; 83605; 84484; 85025; 85610; 87040; 87086; 87088; 93005; 96365; 96366; 99285; J7030; J7040; J7050; Q9967; A4216

== ENCOUNTER → 2021-06-10 05:00 | Outpatient (REF) | payer MEDICARE, MEDICAID, SELFPAY ==
[2021-06-10 06:52] LABS: Absolute Lymphocyte Count 1.03 X10^3/uL (0.83-4.51); Basophil# 0.04 X10^3/uL; Basophil% 0.8 % (0-1); Eosinophil# 0.13 X10^3/uL; Eosinophils% 2.8 % (0-5); Hematocrit 27.2 % (37-47); Hemoglobin 8.4 g/dL (12.0-15.0); Lymphocyte # 1.03 X10^3/ul (0.83-4.51); Lymphocyte % 21.9 % (19-41); Mean Corp Hgb Conc 30.9 g/dL (32-36); Mean Corpuscular Hgb 26.6 pg (27.0-32.0); Mean Corpuscular Volume 86.1 fL (81-99); Mean Platelet Vol. 10.3 fl (6.2-12.0); Monocyte# 0.52 X10^3/uL; NRBC Flagged by Analyzer 0 % (0-5); Neutrophil # 2.98 X10^3/uL (2.7-7.7); Neutrophil % 63.3 % (47-70); Platelet Count 458 K/mm3 (150-450); RBC Distribution Width CV 19.1 % (11.6-14.6); RBC Distribution Width SD 59.5 fl (35.1-43.9); Red Blood Count 3.16 M/mm3 (4.2-5.4); White Blood Count 4.7 K/mm3 (4.4-11.0)
[2021-06-10 07:23] LABS: Anion Gap 7 (5-15); BUN 6 mg/dL (7-18); Calcium,Total 8.4 mg/dL (8.5-10.1); Chloride 98 mmol/L (98-107); Glucose 103 mg/dL (74-106); Potassium 3.7 mmol/L (3.5-5.1); Sodium Level 132 mmol/L (136-145)
[2021-06-10 09:29] LABS: EST Glomerular Filtration Rate 371 mL/min (>60); Est Glom Filt Rate - Afr Amer 450 mL/min (>60)
== END ==
LOC: OLS.WHLTCC 05:00
PROVIDERS: PCP Family Medicine; Visit Provider Family Medicine
DX: G93.40 Encephalopathy, unspecified (principal); S72.001D Fracture of unspecified part of neck of right femur, subsequent encounter for closed fracture with routine healing; M86.151 Other acute osteomyelitis, right femur; Z47.1 Aftercare following joint replacement surgery
CPT/HCPCS: 36415; 80048; 85025

== ENCOUNTER 2021-06-17 20:14 | Emergency (ER) | payer MEDICARE, MEDICAID, SELFPAY ==
[2021-06-17 20:18] VITALS: BP 137/76; PULSE 73; RESP 17; TEMP 36.1; O2SAT 96; BMI 22.5
--- NOTE | 2021-06-17 21:45 | EKG12_ITS ---
Test Reason : DYSRHYTHMIA Blood Pressure : / mmHG Vent. Rate : 076 BPM Atrial Rate : 076 BPM P-R Int : 150 ms QRS Dur : 086 ms QT Int : 470 ms P-R-T Axes : 000 045 075 degrees QTc Int : 528 ms Normal sinus rhythm Low voltage QRS (Limb Leads) Nonspecific T wave abnormality Abnormal ECG Confirmed by BETTY SAUCEDO, CARLOS ([id number]), editor managing director ROCKY ANGELA ([id number]) on 06/18/2021 8:42:01 AM Referred By: ALEXANDREA Confirmed By:CARLOS HERNÁNDEZ MD
--- NOTE | 2021-06-17 21:46 | EDS_ITS ---
HPI History of Present Illness Chief Complaint: Wound Informant: family Limited: other (Patient present on he. Does not say anything when asked questions. She lives alone.) Onset/Context/Timing Onset: Days Context: Gradual Onset Timing: Continuous Quality: Bleeding from wound above gluteal crease, nausea and vomiting Current Severity: Unable to determine Maximum Severity: Unable to determine Worsened by: Unknown Relieved by: Unknown Associated Symptoms Associated Symptoms: Unknown Narrative Narrative: Patient is a 71-year-old woman who was in hospice until June 12. Uncertain who signed the DNR Comfort Care document. Nurse was asked to contact hospice to determine who signed the DNR comfort care document. Patient was brought in because of nausea, vomiting and bleeding from wound. History is limited to what daughter and granddaughter are able to tell me. Patient moaned and then screamed when I moved her left lower extremity. On but notes to me that she had hardware removed because of an infection. She has a diverting colostomy according to the daughter. The diverting colostomy is due to nonhealing sacral wounds/decubitus. There is no history of partial small bowel obstruction. Prior similar symptoms: Yes Recent Illness/Hospitalization: No PFSH PFS Medical History Atrial fibrillation CAD (coronary artery disease) Chronic indwelling H[place] catheter Chronic neck pain Chronic ulcer of left heel with fat layer exposed Colostomy in place Decubitus ulcer of left heel, stage 4 Dementia Depression Dysphagia following cerebrovascular accident (CVA) GERD (gastroesophageal reflux disease) Gout History of MRSA infection History of pressure ulcer Intertrochanteric fracture of left hip Left humeral fracture Neurogenic bladder On home oxygen therapy Osteoporosis PAD (peripheral artery disease) Smoker Stroke/cerebrovascular accident Tobacco abuse Type II diabetes mellitus Vitamin D deficiency Home Medications aspirin [Aspir-81] 81 mg PO DAILY 06/17/21 [History Last Taken Unknown] fluconazole 400 mg PO DAILY 06/17/21 [History Last Taken Unknown] hydrochlorothiazide 12.5 mg PO DAILY 06/17/21 [History Last Taken Unknown] losartan 100 mg PO DAILY 06/17/21 [History Last Taken Unknown] metoprolol tartrate 12.5 mg PO BID 06/17/21 [History Last Taken Unknown] rosuvastatin [Crestor] 5 mg PO DAILY 06/17/21 [History Last Taken Unknown] Allergy/AdvReac Type Severity Reaction Status Date / Time amoxicillin [From Augmentin] Allergy Rash Verified 05/18/21 13:14 atorvastatin [From Lipitor] Allergy Other Verified 05/18/21 13:14 clavulanic acid Allergy Rash Verified 05/18/21 13:14 [From Augmentin] gabapentin Allergy Nausea Verified 05/18/21 13:14 lisinopril Allergy PT UNSURE Verified 05/18/21 13:14 OF REACTION mold Allergy PT UNSURE Verified 05/18/21 13:14 OF REACTION pollen extracts Allergy PT UNSURE Verified 05/18/21 13:14 OF REACTION quinapril [From Accupril] Allergy Rash Verified 05/18/21 13:14 ragweed pollen Allergy PT UNSURE Verified 05/18/21 13:14 OF REACTION simvastatin [From Zocor] Allergy PT UNSURE Verified 05/18/21 13:14 OF REACTION tramadol Allergy PT UNSURE Verified 05/18/21 13:14 OF REACTION tuberculin, purified protein Allergy PT UNSURE Verified 05/18/21 13:14 deriva OF REACTION fluoxetine AdvReac Other Verified 05/18/21 13:14 Family History Mother Tuberculosis Father Heart disease CVA (cerebral vascular accident) Sister Multiple sclerosis Brother Heart disease Surgical History History of appendectomy History of lumpectomy of right breast History of partial hysterectomy History of right-sided carotid endarterectomy Hx of bladder repair surgery Hx of tonsillectomy Social History (Updated 06/17/21 @ 21:[address] Hipolito Regalado MD) household members: none Smoking Status: Current every day smoker tobacco type: cigarettes Tobacco: How many years used: 53 second hand exposure: Yes alcohol intake: never substance use type: does not use caffeine: Yes what type of physical activity do you participate in: none frequency: does not exercise ROS ROS ED Review of Systems ROS Unobtainable: due to mental status EXAM Physical Exam Const Vital Signs: 06/17/21 20:18 Temperature 96.9 F L Temperature Source Temporal Pulse Rate 73 Respiratory Rate 17 Blood Pressure 137/76 H Blood Pressure Mean 96 Pulse Ox 96 Oxygen Delivery Method Nasal Cannula Oxygen Flow Rate (L/min) 3 Positive well developed and unkempt; Negative for well nourished General Appearance ED: unkempt, well developed and other Patient appears pale. Patient says little. HEENT Reports TM's clear and dry mucous membranes HEENT Narrative: Nares patent. Head atraumatic normocephalic. Tympanic Membrane ED: Yes TM's clear Mouth ED: Yes dry mucous membranes Mouth: dry mucous membranes Eyes PERRL and EOMs intact bilaterally General Eye ED: Yes pale conjunctiva; Negative for scleral icterus Neck no lymphadenopathy, supple and no JVD Chest Wall inspection of chest normal and palpation of chest normal Resp normal respiratory effort and clear to auscultation bilaterally Cardio regular rate, regular rhythm, S1 normal heart sound, S2 normal heart sound and no murmurs GI normal to inspection, nondistended, normoactive bowel sounds; Negative for hepatosplenomegaly GI Narrative: Colostomy noted. Stool is dark green. Palpation: Negative for splenomegaly Back/Spine no CVA tenderness Cervical Spine: Negative for cervical spine tenderness Thoracic Spine / Upper Back: paraspinal muscle tenderness Extremity Negative for normal to inspection General Extremety ED: Yes edema and tenderness General Extremity: edema Neuro No oriented x3 Sensorium / Orientation: Negative for alert Psych Negative for mental status grossly normal Appearance: unkempt Skin No no rashes or lesions noted Skin Narrative: Bleeding wound above the buttocks. MDM MDM MDM Narrative Medical decision making narrative: Abdominal series obtained to determine if patient has a partial small bowel obstruction. BMP was obtained to assess electrolytes and anion gap. CBC to assess H&H and white count. Contact hospice to determine who signed DNR comfort care sheet. Lab Data Attestation: I reviewed the patient's lab results. Labs: Laboratory Results - last 24 hr 06/17/21 06/17/21 21:10 21:10 WBC 5.7 RBC 3.84 L Hgb 9.9 L Hct 32.8 L MCV 85.4 MCH 25.8 L MCHC 30.2 L RDW Std Deviation 58.4 H RDW Coeff of Mirza 19.0 H Plt Count 610 H MPV 10.3 Immature Gran % (Auto) 0.300 Neut % (Auto) 60.6 Lymph % (Auto) 22.7 Potter % (Auto) 5.4 Eos % (Auto) 9.4 H Baso % (Auto) 1.6 H Absolute Neuts (auto) 3.5 Absolute Lymphs (auto) 1.30 Nucleated RBC % 0 Sodium 133 L Potassium 3.5 Chloride 97 L Carbon Dioxide 30.0 Anion Gap 6 BUN 9 Creatinine 0.35 L Estim Creat Clear Calc 47.60 Est GFR (MDRD) Af Amer 235 Est GFR (MDRD) Non-Af 194 BUN/Creatinine Ratio 25.6 H Glucose 104 Calcium 8.5 Granddaughter was informed that laboratory tests are unremarkable. Plan is to discharge to home. Radiography Chest X-Ray - ED: Read by ED Physician (Three-view abdominal series obtained. The chest portion feels no acute process. Difficult to read because patient is significantly rotated. There is no obvious infiltrate. Cardiac silhouette is normal. Mediastinum is normal. Patient has evidence of a femoral neck fracture on the right, which i) Discharge Plan Triage Chief Complaint: Wound ED Provider: Hipolito Regalado Dx/Rx/DC Orders Clinical Impression: Decubitus ulcer, stage 3, Anemia in chronic illness, Bleeding from wound Instructions: Pressure Ulcer Tx Clean Dress Prescriptions: No Action fluconazole 200 mg Tablet 400 mg PO DAILY RF: 0 aspirin [Aspir-81] 81 mg Tablet,Delayed Release (Dr/Ec) 81 mg PO DAILY RF: 0 hydrochlorothiazide 12.5 mg Capsule 12.5 mg PO DAILY RF: 0 losartan 100 mg Tablet 100 mg PO DAILY RF: 0 rosuvastatin [Crestor] 5 mg Tablet 5 mg PO DAILY RF: 0 metoprolol tartrate 25 mg tablet 12.5 mg PO BID RF: 0 Primary Care Provider: Tawanda Sood Referrals: Tawanda Sood MD [Primary Care Provider] - As Needed Disposition Disposition: Home, Self Care
[2021-06-17 21:59] LABS: Absolute Neutrophil Count 3.5 X10^3/uL (2.0-7.7); Basophil# 0.09 X10^3/uL; Basophil% 1.6 % (0-1); Eosinophil# 0.54 X10^3/uL; Eosinophils% 9.4 % (0-5); Hematocrit 32.8 % (37-47); Hemoglobin 9.9 g/dL (12.0-15.0); Lymphocyte % 22.7 % (19-41); Mean Corp Hgb Conc 30.2 g/dL (32-36); Mean Corpuscular Hgb 25.8 pg (27.0-32.0); Mean Corpuscular Volume 85.4 fL (81-99); Mean Platelet Vol. 10.3 fl (6.2-12.0); Monocyte# 0.31 X10^3/uL; Monocyte% 5.4 % (0-10); NRBC Flagged by Analyzer 0 % (0-5); Neutrophil # 3.46 X10^3/uL (2.7-7.7); Neutrophil % 60.6 % (47-70); Platelet Count 610 K/mm3 (150-450); RBC Distribution Width SD 58.4 fl (35.1-43.9); Red Blood Count 3.84 M/mm3 (4.2-5.4); White Blood Count 5.7 K/mm3 (4.4-11.0)
[2021-06-17 22:10] LABS: Anion Gap 6 (5-15); BUN 9 mg/dL (7-18); BUN/Creat Ratio 25.6 RATIO (10-20); Calcium,Total 8.5 mg/dL (8.5-10.1); Chloride 97 mmol/L (98-107); Creatinine, Serum 0.35 mg/dL (0.55-1.02); EST Glomerular Filtration Rate 194 mL/min (>60); Est Glom Filt Rate - Afr Amer 235 mL/min (>60); Glucose 104 mg/dL (74-106); Potassium 3.5 mmol/L (3.5-5.1); Sodium Level 133 mmol/L (136-145)
--- NOTE | 2021-06-17 22:45 | RAD_ITS ---
STUDY: X-RAY - ACUTE ABDOMINAL SERIES REASON FOR EXAM: Female, 71 years old. nausea and vomiting TECHNIQUE: Single view of the chest. Supine, and erect view(s) of the abdomen were obtained. COMPARISON: None. FINDINGS: Heart size is normal. No pleural effusion or pulmonary consolidation. Dense calcified adenopathy in the mediastinum or right hilum. No free air above the liver. There is a non-obstructive bowel gas pattern. There is no organomegaly. Multiple vertebroplasties. Prior internal fixation of the left hip. Chronic right femoral neck fracture. RAD/Acute Abdomen Inc Chest IMPRESSION: No acute findings. Electronically Signed: Sada Corea MD at 0:01 EDT Tel , Service support ,
[2021-06-18 00:04] VITALS: BP 123/60; PULSE 78; RESP 18; O2SAT 96
[2021-06-18] MEDS: Morphine 2 MG/ML Syringe IM (00:14)
== END 2021-06-18 00:22 | disposition home or self-care (01) ==
PROVIDERS: Emergency Provider Emergency Medicine; PCP Family Medicine
DX: L89.303 Pressure ulcer of unspecified buttock, stage 3 (principal); D63.8 Anemia in other chronic diseases classified elsewhere; F17.210 Nicotine dependence, cigarettes, uncomplicated; I25.10 Atherosclerotic heart disease of native coronary artery without angina pectoris; I48.91 Unspecified atrial fibrillation; Z66 Do not resuscitate; Z79.82 Long term (current) use of aspirin; Z79.899 Other long term (current) drug therapy; Z93.3 Colostomy status
CPT/HCPCS: 74022; 80048; 85025; 93005; 96372; 99285; A4216

== ENCOUNTER 2021-06-27 18:26 | Inpatient (IN) | payer MEDICARE, MEDICAID, SELFPAY ==
[2021-06-27] VITALS (11 sets, daily range): BP systolic 98–140; BP diastolic 60–95; PULSE 86–111; RESP 13–30; TEMP 36.6–37.2; O2SAT 84–100; BMI 49.6
--- NOTE | 2021-06-27 19:26 | EKG12_ITS ---
Test Reason : CONFUSSION Blood Pressure : / mmHG Vent. Rate : 089 BPM Atrial Rate : 087 BPM P-R Int : 000 ms QRS Dur : 078 ms QT Int : 388 ms P-R-T Axes : 000 050 030 degrees QTc Int : 472 ms Normal sinus rhythm ST & T wave abnormality, consider anterior ischemia Abnormal ECG Confirmed by RICKI SAUCEDO, TOÑITO ([id number]), web editor ROCKY ANGELA ([id number]) on 07/02/2021 7:46:41 AM Referred By: FRANSISCO Confirmed By:TOÑITO ROBISON MD
--- NOTE | 2021-06-27 19:27 | CT_ITS ---
STUDY: CT Abdomen And Pelvis W/O Contrast Injection 06/27/2021 9:10 PM REASON FOR EXAM: Female, 71 years old. Abdominal pain abdominal pain Individualized dose optimization techniques were used for this CT. COMPARISON: 05/18/2021 TECHNIQUE: CT Abdomen And Pelvis W/O Contrast Injection FINDINGS: There are atherosclerotic calcifications of visualized coronary arteries. There is bilateral pneumonia. There are bilateral pleural effusions. There is a small pericardial effusion. Normal liver. Normal gallbladder and extrahepatic biliary system. There are multiple benign calcified granulomata of the spleen. Normal pancreas. There is symmetric enlargement of the adrenal glands suggesting adrenal hyperplasia. No acute findings of the right kidney. No acute findings of the left kidney. Normal visualized stomach. Normal small intestine. There is a left lower quadrant ostomy noted. There is non-visualization of the appendix. There are calcifications of the abdominal aorta. This is consistent for atherosclerotic disease. There is no abdominal aortic aneurysm. Normal inferior vena cava. Subcentimeter mesenteric lymph nodes. There is a left side sided subcutaneous implanted electronic device with leads extending into the spinal canal. This is likely an SCS (spinal cord stimulator). Subcutaneous edema. Urinary bladder wall has wall thickening. This can be related to a partially contractile state. However, a cystitis is not excluded. Urinalysis should be performed in an effort to exclude cystitis. Air in the urinary bladder. This is likely iatrogenic. There is metallic hardware noted in the left hip. Chronic right femoral neck fracture. Resorption of the right femoral head. Sacral decubitus ulcer. Rectal stump in place. Stable L3 compression deformed. Vertebroplasty changes at L1 and L2. Normal abdominal wall. There are diffuse degenerative changes of the visualized lumbar spine. IMPRESSION: (NOT LISTED IN ORDER OF SIGNIFICANCE) There is bilateral pneumonia. There are bilateral pleural effusions. These findings are worse. Urinary bladder wall has wall thickening. This can be related to a partially contractile state. However, a cystitis is not excluded. Urinalysis should be performed in an effort to exclude cystitis. Other findings as above. Electronically Signed: Jesús Ulrich MD at 21:13 EDT , Service support , CT/Abdomen/Pelvis without Cont
--- NOTE | 2021-06-27 19:28 | CT_ITS ---
STUDY: CT BRAIN WITHOUT CONTRAST REASON FOR EXAM: Female, 71 years old. confusion Individualized dose optimization techniques were used for this CT. TECHNIQUE: Transaxial CT imaging of the brain was performed without administration of intravenous contrast material. COMPARISON: 05/18/2021 FINDINGS: There are calcifications around the carotid artery. These are noted in the cavernous carotid arteries. Normal calvarium. Normal soft tissues. There is disproportionate enlargement of the lateral and third ventricles, as compared to the extra-axial spaces. The findings suggest normal pressure hydrocephalus (NPH). There are areas of decreased attenuation within the white matter tracts of the supratentorial brain, consistent with microvascular disease changes. Normal basal ganglia and thalami. Normal brainstem. There is mild cerebellar atrophy. There is no intracranial hemorrhage. There are no findings of an acute ischemic infarction. Normal visualized paranasal sinuses. ASPECTS Score for Acute Strokes: 06/23 CT/Brain/Head without Contrast IMPRESSION: NPH should be considered. This is a stable finding. Chronic involutional changes of the brain. Electronically Signed: Jesús Ulrich MD at 21:07 EDT , Service support ,
--- NOTE | 2021-06-27 19:35 | EX.ED.DYSGE1 ---
HPI History of Present Illness Chief Complaint: General Illness Detail of Chief Complaint: Mental status change, decreased GI output Informant: family Narrative Narrative: History provided by granddaughter at bedside. Patient had been found to have a hip fracture in early May and was transferred to [facility] in [place]. She also had sepsis secondary to pneumonia at that time. Following her hip procedure she was transferred back to local senior living and was discharged from there June 12. Family states that she continues to have functional decline at home, not being alert and talkative. She has had decreased p.o. intake. They have noted only a small amount of output from her colostomy since June 17. She does have a pressure ulcer noted on the sacrum with a state has been bleeding. No fever has been noted. Patient is on oxygen at baseline. [facility] Medical History Atrial fibrillation CAD (coronary artery disease) Chronic indwelling [place] catheter Chronic neck pain Chronic ulcer of left heel with fat layer exposed Colostomy in place Decubitus ulcer of left heel, stage 4 Dementia Depression Dysphagia following cerebrovascular accident (CVA) Essential hypertension GERD (gastroesophageal reflux disease) Gout History of MRSA infection History of pressure ulcer Intertrochanteric fracture of left hip Left humeral fracture Neurogenic bladder On home oxygen therapy Osteoporosis PAD (peripheral artery disease) Smoker Stroke/cerebrovascular accident Tobacco abuse Type II diabetes mellitus Vitamin D deficiency Home Medications aspirin [Aspir-81] 81 mg PO DAILY 06/17/21 [History Last Taken Unknown] fluconazole 400 mg PO DAILY 06/17/21 [History Last Taken Unknown] hydrochlorothiazide 12.5 mg PO DAILY 06/17/21 [History Last Taken Unknown] losartan 100 mg PO DAILY 06/17/21 [History Last Taken Unknown] metoprolol tartrate 12.5 mg PO BID 06/17/21 [History Last Taken Unknown] Allergy/AdvReac Type Severity Reaction Status Date / Time amoxicillin [From Augmentin] Allergy Rash Verified 06/27/21 18:36 atorvastatin [From Lipitor] Allergy Other Verified 06/27/21 18:36 clavulanic acid Allergy Rash Verified 06/27/21 18:36 [From Augmentin] gabapentin Allergy Nausea Verified 06/27/21 18:36 lisinopril Allergy PT UNSURE Verified 06/27/21 18:36 OF REACTION mold Allergy PT UNSURE Verified 06/27/21 18:36 OF REACTION pollen extracts Allergy PT UNSURE Verified 06/27/21 18:36 OF REACTION quinapril [From Accupril] Allergy Rash Verified 06/27/21 18:36 ragweed pollen Allergy PT UNSURE Verified 06/27/21 18:36 OF REACTION simvastatin [From Zocor] Allergy PT UNSURE Verified 06/27/21 18:36 OF REACTION tramadol Allergy PT UNSURE Verified 06/27/21 18:36 OF REACTION tuberculin, purified protein Allergy PT UNSURE Verified 06/27/21 18:36 deriva OF REACTION fluoxetine AdvReac Other Verified 06/27/21 18:36 Family History Mother Tuberculosis Father Heart disease CVA (cerebral vascular accident) Sister Multiple sclerosis Brother Heart disease Surgical History History of appendectomy History of lumpectomy of right breast History of partial hysterectomy History of right-sided carotid endarterectomy Hx of bladder repair surgery Hx of tonsillectomy Social History household members: none Smoking Status: Current every day smoker tobacco type: cigarettes Tobacco: How many years used: 53 second hand exposure: Yes alcohol intake: never substance use type: does not use caffeine: Yes what type of physical activity do you participate in: none frequency: does not exercise ROS ROS ED Review of Systems ROS Unobtainable: due to mental status EXAM Physical Exam Narrative Exam Narrative: Patient resting with her eyes closed. Moans periodically. Const Vital Signs: 06/27/21 18:32 06/27/21 18:35 06/27/21 19:04 Temperature 97.8 F Temperature Source Axillary Pulse Rate 88 Respiratory Rate 30 H Respiratory Effort Normal Non-Labored Respiratory Pattern Normal Blood Pressure 98/64 Blood Pressure Mean 75 Pulse Ox 84 99 Oxygen Delivery Method Room Air Nasal Cannula Oxygen Flow Rate (L/min) 3 06/27/21 20:00 06/27/21 20:02 06/27/21 20:44 Temperature 98 F Temperature Source Temporal Pulse Rate 89 Respiratory Rate 25 H Respiratory Effort Respiratory Pattern Blood Pressure 110/60 Blood Pressure Mean 76 Pulse Ox 100 100 Oxygen Delivery Method Nasal Cannula Nasal Cannula Oxygen Flow Rate (L/min) 3 3 06/27/21 21:12 06/27/21 21:13 06/27/21 21:39 Temperature 98 F Temperature Source Temporal Pulse Rate 86 Respiratory Rate Respiratory Effort Respiratory Pattern Blood Pressure 132/82 H 139/79 H Blood Pressure Mean 98 99 Pulse Ox 100 Oxygen Delivery Method Room Air Oxygen Flow Rate (L/min) Positive cachectic General Appearance ED: cachectic Nutritional Appearance: cachectic HEENT Reports moist mucous membranes Neck supple Chest Wall inspection of chest normal and palpation of chest normal Resp normal respiratory effort and clear to auscultation bilaterally Cardio regular rate and regular rhythm GI normal to inspection, nondistended, normoactive bowel sounds GI Narrative: No focal tenderness with normal bowel sounds on auscultation. Palpation: soft Back/Spine Back/Spine Narrative: Decubitus ulcer along the medial right buttock measuring 8 x 4 cm with eschar. Neuro Neuro Narrative: Resting with eyes closed. Moans to painful stimulation. MDM MDM MDM Narrative Medical decision making narrative: Patient was placed on monitoring manager. EKG, head CT, chest x-ray, CT abdomen pelvis obtained. Blood work, cultures, urinalysis obtained. Covid swab ordered. Lab Data Attestation: I reviewed the patient's lab results. Labs: Laboratory Results - last 24 hr 06/27/21 06/27/21 06/27/21 19:54 20:00 20:00 WBC 9.7 RBC 3.58 L Hgb 9.3 L Hct 30.9 L MCV 86.3 MCH 26.0 L MCHC 30.1 L RDW Std Deviation 60.0 H RDW Coeff of Mirza 19.8 H Plt Count 443 MPV 9.9 Immature Gran % (Auto) 0.400 Neut % (Auto) 71.5 H Lymph % (Auto) 16.7 L Canyon % (Auto) 7.6 Eos % (Auto) 2.9 Baso % (Auto) 0.9 Absolute Neuts (auto) 6.9 Absolute Lymphs (auto) 1.62 Nucleated RBC % 0 PT 16.1 H INR 1.4 APTT 57.2 H Sodium Potassium Chloride Carbon Dioxide Anion Gap BUN Creatinine Estim Creat Clear Calc Est GFR (MDRD) Af Amer Est GFR (MDRD) Non-Af BUN/Creatinine Ratio Glucose Lactic Acid Calcium Total Bilirubin AST ALT Alkaline Phosphatase Troponin I High Sens Total Protein Albumin Globulin Albumin/Globulin Ratio Urine Color Summer Urine Clarity Turbid Urine pH 6.0 Ur Specific [place] 1.020 Urine Protein 100 H Urine Glucose (UA) Normal Urine Ketones 5 H Urine Occult Blood 250 H Urine Nitrite Negative Urine Bilirubin 1 H Urine Urobilinogen 4 H Ur Leukocyte Esterase 500 H Urine RBC 0 SEEN Urine WBC >100 SEEN Ur Squamous Epith Cells 0 SEEN Urine Bacteria 0 SEEN Urine Mucus 0 SEEN 06/27/21 06/27/21 20:00 20:00 WBC RBC Hgb Hct MCV MCH MCHC RDW Std Deviation RDW Coeff of Mirza Plt Count MPV Immature Gran % (Auto) Neut % (Auto) Lymph % (Auto) Canyon % (Auto) Eos % (Auto) Baso % (Auto) Absolute Neuts (auto) Absolute Lymphs (auto) Nucleated RBC % PT INR APTT Sodium 136 Potassium 3.0 L Chloride 94 L Carbon Dioxide 37.0 H Anion Gap 5 BUN 10 Creatinine 0.37 L Estim Creat Clear Calc 45.76 Est GFR (MDRD) Af Amer 221 Est GFR (MDRD) Non-Af 183 BUN/Creatinine Ratio 27.1 H Glucose 98 Lactic Acid 1.3 Calcium 9.0 Total Bilirubin 0.50 AST 16 ALT < 6 L Alkaline Phosphatase 162 H Troponin I High Sens 20 Total Protein 5.3 L Albumin 1.4 L Globulin 3.9 Albumin/Globulin Ratio 0.4 L Urine Color Urine Clarity Urine pH Ur Specific [place] Urine Protein Urine Glucose (UA) Urine Ketones Urine Occult Blood Urine Nitrite Urine Bilirubin Urine Urobilinogen Ur Leukocyte Esterase Urine RBC Urine WBC Ur Squamous Epith Cells Urine Bacteria Urine Mucus Rapid Covid test negative. Radiography Chest X-Ray - ED: 1 View, Read by ED Physician and Chronic Changes Diagnostic Testing: Clinical Impression(s) from Imaging Studies Abdomen/Pelvis CT 06/27/21 19:[address] 06/27/21 19:28 IMPRESSION: NPH should be considered. This is a stable finding. Chronic involutional changes of the brain. Electronically Signed: Jesús Ulrich MD at 21:07 EDT , Service support , Chest X-Ray 06/27/21 20:07 IMPRESSION: Reidentified linear density right lateral most likely represents an artifact. If there is clinical concern for pneumothorax consider a decubitus chest radiographs or chest CT. Otherwise no acute cardiopulmonary findings identified. Electronically Signed: Ricky Fuentes MD at 20:40 EDT Tel , Service support , ADDENDUM: 06/27/212050 IMPRESSION: Reidentified linear density right lateral most likely represents an artifact. If there is clinical concern for pneumothorax consider a decubitus chest radiographs or chest CT. Otherwise no acute cardiopulmonary findings identified. N.B. : The above Results were Read Back by Ricky Fuentes MD to Aleena Rivas MD, and understanding confirmed on 06/27/2021 20:44:45 (ET). Electronically Signed: Ricky Fuentes MD at 20:40 EDT Tel , Service support , EKG Initial EKG: Attestation: I personally reviewed and interpreted this EKG as follows: Interpretation: Sinus Rhythm (Sinus at 89 with baseline artifact. No obvious ST change.) Treatment and Re-Evaluation Comments:: Test results reviewed. Patient's white count is normal. Hemoglobin is 9.3, consistent with prior values. Chemistry studies significant for potassium of 3.0. Lactic acid 1.3. Urinalysis does show white cells but no bacteria. This is likely secondary to chronic indwelling [place] catheter. EKG reveals no obvious ischemia. Portable chest x-ray per my interpretation reveals linear density along the right lung initially concerning for pneumothorax, however after discussion with radiologist feels that this is likely secondary to a skinfold or artifact. CT abdomen and pelvis does not show evidence of a pneumothorax. There is bilateral lower lobe infiltrates and pleural effusions. Patient will receive IV potassium replacement. She is given Rocephin and Zithromax for pneumonia coverage. After rolling the patient to evaluate the decubitus ulcers, vancomycin will also be added. I have updated patient's granddaughter at bedside and spoke with daughter on the phone. Patient be admitted for further treatment. Discharge Plan Triage Chief Complaint: General Illness ED Provider: Aleena Rivas Dx/Rx/DC Orders Clinical Impression: Hypokalemia, Pneumonia, Change in mental status Prescriptions: No Action fluconazole 200 mg Tablet 400 mg PO DAILY RF: 0 aspirin [Aspir-81] 81 mg Tablet,Delayed Release (Dr/Ec) 81 mg PO DAILY RF: 0 hydrochlorothiazide 12.5 mg Capsule 12.5 mg PO DAILY RF: 0 losartan 100 mg Tablet 100 mg PO DAILY RF: 0 metoprolol tartrate 25 mg tablet 12.5 mg PO BID RF: 0 Primary Care Provider: Tawanda Sood Referrals: Tawanda Sood MD [Primary Care Provider] - Disposition Disposition: Acute Care Hospital [facility]
[2021-06-27 20:07] LABS: Bacteria 0 SEEN /hpf (None Seen); Mucous, Urine 0 SEEN /hpf (<or=2+); Red Blood Cells-Urine 0 SEEN /hpf (0-5); Squamous Epithelial Cells - UA 0 SEEN /hpf (5-10)
--- NOTE | 2021-06-27 20:07 | RAD_ITS ---
We are attempting to reach an attending provider to discuss findings. An addendum with communication details will be sent when the communication is complete. STUDY: X-RAY CHEST REASON FOR EXAM: Female, 71 years old. Sob TECHNIQUE: Single frontal view of the chest. COMPARISON: 06/17/2021 FINDINGS: Linear density right lateral lung is reidentified and most likely represents an artifact. If there is clinical concern for pneumothorax consider a decubitus chest radiographs or chest CT. Speckled calcifications right lower lobe. Calcified mediastinal and hilar lymph nodes. Normal size heart. Normal mediastinum and morteza. Normal visualized pulmonary arteries. There is atherosclerotic calcification of the aortic arch with tortuosity. Normal visualized thoracic spine. Normal visualized ribs, clavicles, and shoulders. There is no demonstrated abnormality of the visualized soft tissue structures of the upper abdomen. RAD/Chest 1 View (Portable) IMPRESSION: Reidentified linear density right lateral most likely represents an artifact. If there is clinical concern for pneumothorax consider a decubitus chest radiographs or chest CT. Otherwise no acute cardiopulmonary findings identified. Electronically Signed: Ricky Fuentes MD at 20:40 EDT Tel , Service support ,
[2021-06-27 20:11] LABS: Color, Urine Amber (Yellow); Glucose, Dipstick Normal (Normal); Ketone-Dipstick 5 mg/dl (Negative); Leukocyte Esterase-Dipstick 500 /ul (Negative); Nitrite-Dipstick Negative (Negative); Occult Blood-Urine 250 /ul (Negative); Protein-Dipstick 100 mg/dl (Negative); Urine Bilirubin Dipstick 1 mg/dL (Negative); Urine Clarity Turbid (Clear); Urine Urobilinogen 4 mg/dl (Normal)
[2021-06-27 20:18] LABS: White Blood Cells >100 SEEN /hpf (0-5)
[2021-06-27 20:19] LABS: Absolute Lymphocyte Count 1.62 X10^3/uL (0.83-4.51); Absolute Neutrophil Count 6.9 X10^3/uL (2.0-7.7); Basophil# 0.09 X10^3/uL; Basophil% 0.9 % (0-1); Eosinophil# 0.28 X10^3/uL; Eosinophils% 2.9 % (0-5); Hematocrit 30.9 % (37-47); Hemoglobin 9.3 g/dL (12.0-15.0); Lymphocyte # 1.62 X10^3/ul (0.83-4.51); Lymphocyte % 16.7 % (19-41); Mean Corp Hgb Conc 30.1 g/dL (32-36); Mean Corpuscular Volume 86.3 fL (81-99); Mean Platelet Vol. 9.9 fl (6.2-12.0); Monocyte# 0.74 X10^3/uL; Monocyte% 7.6 % (0-10); NRBC Flagged by Analyzer 0 % (0-5); Neutrophil # 6.92 X10^3/uL (2.7-7.7); Neutrophil % 71.5 % (47-70); Platelet Count 443 K/mm3 (150-450); RBC Distribution Width CV 19.8 % (11.6-14.6); Red Blood Count 3.58 M/mm3 (4.2-5.4); White Blood Count 9.7 K/mm3 (4.4-11.0)
[2021-06-27 20:26] LABS: International Normalized Ratio 1.4; Prothrombin Time (Protime)PT. 16.1 SECONDS (11.7-14.9)
[2021-06-27 20:27] LABS: Partial Thromboplast Time 57.2 Seconds (24.1-36.2)
[2021-06-27 20:39] LABS: ALB/GLOB Ratio 0.4 RATIO (0.9-2.4); AST(SGOT) 16 U/L (15-37); Alanine Aminotransfer ALT/SGPT < 6 U/L (13-56); Albumin, Serum 1.4 g/dL (3.2-5.0); Alkaline Phosphatase 162 U/L (45-117); Anion Gap 5 (5-15); BUN 10 mg/dL (7-18); BUN/Creat Ratio 27.1 RATIO (10-20); Chloride 94 mmol/L (98-107); Creatinine, Serum 0.37 mg/dL (0.55-1.02); EST Glomerular Filtration Rate 183 mL/min (>60); Est Glom Filt Rate - Afr Amer 221 mL/min (>60); Estimated Creatinine Clearance 45.76 ml/min; Globulin 3.9 g/dL (2.2-4.2); Glucose 98 mg/dL (74-106); Protein, Total 5.3 g/dL (6.4-8.2); Sodium Level 136 mmol/L (136-145); Troponin-I HS 20 pg/mL (3.0-54.0)
[2021-06-27 20:52] LABS: Lactic Acid 1.3 mmol/L (0.4-1.9)
[2021-06-27] MEDS: Potassium Chloride 10mEq/100mL 10 MEQ/100 ML IV.SOLN. 100 MEQ IV BOLUS (22:27)
[2021-06-27] MEDS: Ceftriaxone 1 GM/50 ML BAG IV (22:35)
--- NOTE | 2021-06-27 22:49 | PCM.HP.STD ---
HPI - General General Date of Admission: 06/27/21 HPI Narrative Patient not answering questions. History was taken for emergency department doctor who took history from patient family. TATIANA DICKEY, is a 71 F with a significant history of pressure ulcers; and MRSA infection who presents to the emergency department with decreased p.o. intake and decreased response. Patient has a colostomy. Reportedly case was discussed with general surgeon who recommended patient come to the emergency department. Previously patient was on hospice but family was not happy with hospice service so hospice was discontinued. Emergency part doctor discussed the case with family will set up patient is a DNR CCA without intubation at this time. [facility] Medical History Atrial fibrillation CAD (coronary artery disease) Chronic indwelling [place] catheter Chronic neck pain Chronic ulcer of left heel with fat layer exposed Colostomy in place Decubitus ulcer of left heel, stage 4 Dementia Depression Dysphagia following cerebrovascular accident (CVA) Essential hypertension GERD (gastroesophageal reflux disease) Gout History of MRSA infection History of pressure ulcer Intertrochanteric fracture of left hip Left humeral fracture Neurogenic bladder On home oxygen therapy Osteoporosis PAD (peripheral artery disease) Smoker Stroke/cerebrovascular accident Tobacco abuse Type II diabetes mellitus Vitamin D deficiency Home Medications aspirin [Aspir-81] 81 mg PO DAILY 06/17/21 [History Last Taken Unknown] fluconazole 400 mg PO DAILY 06/17/21 [History Last Taken Unknown] hydrochlorothiazide 12.5 mg PO DAILY 06/17/21 [History Last Taken Unknown] losartan 100 mg PO DAILY 06/17/21 [History Last Taken Unknown] metoprolol tartrate 12.5 mg PO BID 06/17/21 [History Last Taken Unknown] Allergy/AdvReac Type Severity Reaction Status Date / Time amoxicillin [From Augmentin] Allergy Rash Verified 06/27/21 18:36 atorvastatin [From Lipitor] Allergy Other Verified 06/27/21 18:36 clavulanic acid Allergy Rash Verified 06/27/21 18:36 [From Augmentin] gabapentin Allergy Nausea Verified 06/27/21 18:36 lisinopril Allergy PT UNSURE Verified 06/27/21 18:36 OF REACTION mold Allergy PT UNSURE Verified 06/27/21 18:36 OF REACTION pollen extracts Allergy PT UNSURE Verified 06/27/21 18:36 OF REACTION quinapril [From Accupril] Allergy Rash Verified 06/27/21 18:36 ragweed pollen Allergy PT UNSURE Verified 06/27/21 18:36 OF REACTION simvastatin [From Zocor] Allergy PT UNSURE Verified 06/27/21 18:36 OF REACTION tramadol Allergy PT UNSURE Verified 06/27/21 18:36 OF REACTION tuberculin, purified protein Allergy PT UNSURE Verified 06/27/21 18:36 deriva OF REACTION fluoxetine AdvReac Other Verified 06/27/21 18:36 Family History Mother Tuberculosis Father Heart disease CVA (cerebral vascular accident) Sister Multiple sclerosis Brother Heart disease Surgical History History of appendectomy History of lumpectomy of right breast History of partial hysterectomy History of right-sided carotid endarterectomy Hx of bladder repair surgery Hx of tonsillectomy Social History household members: none Smoking Status: Current every day smoker tobacco type: cigarettes Tobacco: How many years used: 53 second hand exposure: Yes alcohol intake: never substance use type: does not use caffeine: Yes what type of physical activity do you participate in: none frequency: does not exercise ROS Review of Systems ROS Unobtainable: due to mental condition Vital Signs Vital Signs Vital Signs: 06/27/21 18:32 06/27/21 18:35 06/27/21 19:04 Temperature 97.8 F Temperature Source Axillary Pulse Rate 88 Respiratory Rate 30 H Respiratory Effort Normal Non-Labored Respiratory Pattern Normal Blood Pressure 98/64 Blood Pressure Mean 75 Pulse Ox 84 99 Oxygen Delivery Method Room Air Nasal Cannula Oxygen Flow Rate (L/min) 3 06/27/21 20:00 06/27/21 20:02 06/27/21 20:44 Temperature 98 F Temperature Source Temporal Pulse Rate 89 Respiratory Rate 25 H Respiratory Effort Respiratory Pattern Blood Pressure 110/60 Blood Pressure Mean 76 Pulse Ox 100 100 Oxygen Delivery Method Nasal Cannula Nasal Cannula Oxygen Flow Rate (L/min) 3 3 06/27/21 21:12 06/27/21 21:13 06/27/21 21:39 Temperature 98 F Temperature Source Temporal Pulse Rate 86 Respiratory Rate Respiratory Effort Respiratory Pattern Blood Pressure 132/82 H 139/79 H Blood Pressure Mean 98 99 Pulse Ox 100 Oxygen Delivery Method Room Air Oxygen Flow Rate (L/min) 06/27/21 22:30 06/27/21 22:33 06/27/21 22:37 Temperature 99 F 99 F Temperature Source Temporal Temporal Pulse Rate 111 H 105 H Respiratory Rate 13 25 H Respiratory Effort Respiratory Pattern Blood Pressure 140/95 H 140/95 H Blood Pressure Mean 110 110 Pulse Ox 92 98 Oxygen Delivery Method Room Air Room Air Oxygen Flow Rate (L/min) Weight Weight: 135.2 kg Body Mass Index (BMI) 49.6 Physical Exam Narrative Physical exam: General: Cachectic Head: Normocephalic, atraumatic, no tenderness Eyes: PERRLA, EOMI ENT, no trauma, moist mucous membranes, no rhinorrhea Neck: Nontender, full range of motion, no spinal tenderness, deformities, step-off CVS: Tachycardia ; S1-S2 present. No murmur, gallop or rub. Respiratory : Tachypnea; clear to auscultation bilaterally, chest wall nontender, no wheezing Abdomen: Soft, nontender, nondistended, normal bowel sounds, no masses : Deferred Back: Nontender, no CVA tenderness, no midline spinal tenderness, deformities, step-offs Extremities: Nontender full range of motion, no trauma Skin: Stage IV pressure ulcer on sacrum; stage II pressure ulcer on left heel. Stage I pressure ulcer on the right heel. Neuro: Hypoalert; oriented, cranial nerves II through XII grossly intact. Psychiatry:Moaning and groaning Results Lab / Micro Data Result Diagrams: 06/27/21 20:00 06/27/21 20:00 Labs: Laboratory Results - last 24 hr 06/27/21 19:54: Urine Color Summer, Urine Clarity Turbid, Urine pH 6.0, Ur Specific [place] 1.020, Urine Protein 100 H, Urine Glucose (UA) Normal, Urine Ketones 5 H, Urine Occult Blood 250 H, Urine Nitrite Negative, Urine Bilirubin 1 H, Urine Urobilinogen 4 H, Ur Leukocyte Esterase 500 H, Urine RBC 0 SEEN, Urine WBC >100 SEEN, Ur Squamous Epith Cells 0 SEEN, Urine Bacteria 0 SEEN, Urine Mucus 0 SEEN 06/27/21 20:00: WBC 9.7, RBC 3.58 L, Hgb 9.3 L, Hct 30.9 L, MCV 86.3, MCH 26.0 L, MCHC 30.1 L, RDW Std Deviation 60.0 H, RDW Coeff of Mirza 19.8 H, Plt Count 443, MPV 9.9, Immature Gran % (Auto) 0.400, Neut % (Auto) 71.5 H, Lymph % (Auto) 16.7 L, Rincon % (Auto) 7.6, Eos % (Auto) 2.9, Baso % (Auto) 0.9, Absolute Neuts (auto) 6.9, Absolute Lymphs (auto) 1.62, Nucleated RBC % 0 06/27/21 20:00: PT 16.1 H, INR 1.4, APTT 57.2 H 06/27/21 20:00: Sodium 136, Potassium 3.0 L, Chloride 94 L, Carbon Dioxide 37.0 H, Anion Gap 5, BUN 10, Creatinine 0.37 L, Estim Creat Clear Calc 45.76, Est GFR (MDRD) Af Amer 221, Est GFR (MDRD) Non-Af 183, BUN/Creatinine Ratio 27.1 H, Glucose 98, Calcium 9.0, Total Bilirubin 0.50, AST 16, ALT < 6 L, Alkaline Phosphatase 162 H, Troponin I High Sens 20, Total Protein 5.3 L, Albumin 1.4 L, Globulin 3.9, Albumin/Globulin Ratio 0.4 L 06/27/21 20:00: Lactic Acid 1.3 Micro: Microbiology 06/27/21 19:54 Nasal Secretion SARS-CoV-2 Antigen (Rapid) - Final Radiology Impression Abdomen/Pelvis CT 06/27/21 19:[address] 06/27/21 19:28 IMPRESSION: NPH should be considered. This is a stable finding. Chronic involutional changes of the brain. Electronically Signed: Jesús Ulrich MD at 21:07 EDT , Service support , Chest X-Ray 06/27/21 20:07 IMPRESSION: Reidentified linear density right lateral most likely represents an artifact. If there is clinical concern for pneumothorax consider a decubitus chest radiographs or chest CT. Otherwise no acute cardiopulmonary findings identified. Electronically Signed: Ricky Fuentes MD at 20:40 EDT Tel , Service support , ADDENDUM: 06/27/212050 IMPRESSION: Reidentified linear density right lateral most likely represents an artifact. If there is clinical concern for pneumothorax consider a decubitus chest radiographs or chest CT. Otherwise no acute cardiopulmonary findings identified. N.B. : The above Results were Read Back by Ricky Fuentes MD to Aleena Rivas MD, and understanding confirmed on 06/27/2021 20:44:45 (ET). Electronically Signed: Ricky Fuentes MD at 20:40 EDT Tel , Service support , Assessment & Plan Assessment/Plan (1) Wound infection: (2) Pneumonia: QUALIFIERS: Laterality: bilateral Lung location: unspecified part of lung Pneumonia type: due to unspecified organism Qualified Code(s): J18.9 - Pneumonia, unspecified organism (3) Hypokalemia: PLAN: Sacral wound infection Patient noted to have chronic sacral wound. Cannot rule out infection at this time. Of note patient with no fever and white count is normal. Started on vancomycin at emergency department and continued. Levaquin IV ordered. Wet-to-dry dressing. Wound care consult Trend CBC and BMP Pneumonia Abdomen pelvis CT showed bilateral opacities and pleural effusion. Actual abdomen pelvis CT was independently visualized I agree with radiologist interpretation above. Vancomycin and Levaquin as above. Review of labs showed normal white counts. Trend CBC and BMP. Patient with no white count or fever. However antibiotics as above because of radiographic findings. Acute encephalopathy Likely secondary to infection or progression of chronic encephalopathy. Of note a CT is remarkable for enlarged lateral and third ventricles but that is chronic. Speech management consult for swallow eval. Hold all p.o. meds. Hypokalemia Replaced Trend Stage IV pressure ulcer. Management as an sacral wound infection. Stage I pressure ulcer of left heel Foam to bilateral legs. Fungal infection Change fluconazole p.o. to IV. Hypertension Blood pressure is within goal. Hold home p.o. antihypertensive medication in the setting of n.p.o. Trend blood pressures. DVT prophylaxis SCD ordered. Charges/Coding Visit Charges Inpatient E&M: 86295 Init Hosp L3
[2021-06-28] VITALS (17 sets, daily range): BP systolic 102–148; BP diastolic 57–107; PULSE 90–130; RESP 18–20; TEMP 36.2–37.4; O2SAT 95–100; BMI 21.4
[2021-06-28] MEDS: Potassium Chloride 10mEq/100mL 10 MEQ/100 ML IV.SOLN. 100 MEQ IV BOLUS ×3 (00:18→02:21)
--- NOTE | 2021-06-28 00:38 | PCS.PANDOC ---
PANDEMIC DOCUMENTATION INITIATED: Date: 06/27/2021 Time: 3736
[2021-06-28] MEDS: Metoprolol Tartrate 5 MG/5 ML Vial IV ×3 (01:03→12:32)
[2021-06-28] MEDS: 0.9% Saline Lock 10 ML Syringe IV ×2 (01:14→05:52)
--- NOTE | 2021-06-28 02:03 | PCM.RX.CS ---
Consult Pharmacy has been consulted to manage selected antiobiotic: Vancomycin Type of Consult: New start Suspected Infection: Sepsis Prior Doses of Antibiotics Received/Current Regimen: Medications Vancomycin HCl 1,250 mg/ (Sodium Chloride) 275 mls @ 167 mls/hr IV Q12H HUANG Discontinued Medications Vancomycin HCl 2,000 mg/ (Sodium Chloride) 540 mls @ 250 mls/hr IV X1 ONE Stop: 06/28/21 00:23 Last Admin: 06/28/21 00:18 Dose: 250 mls/hr Labs: Sodium 136 mmol/L (136-145) 06/27/21 20:00 Potassium 3.0 mmol/L (3.5-5.1) L 06/27/21 20:00 Chloride 94 mmol/L (98-107) L 06/27/21 20:00 Carbon Dioxide 37.0 mmol/L (21.0-32.0) H 06/27/21 20:00 Anion Gap 5 (5-15) 06/27/21 20:00 BUN 10 mg/dL (7-18) 06/27/21 20:00 Creatinine 0.37 mg/dL (0.55-1.02) L 06/27/21 20:00 Est GFR (MDRD) Af Amer 221 mL/min (>60) 06/27/21 20:00 Est GFR (MDRD) Non-Af 183 mL/min (>60) 06/27/21 20:00 BUN/Creatinine Ratio 27.1 RATIO (10-20) H 06/27/21 20:00 Glucose 98 mg/dL (74-106) 06/27/21 20:00 Microbiology: Microbiology 06/27/21 19:54 Nasal Secretion SARS-CoV-2 Antigen (Rapid) - Final Weight used for dosin.7 kg Estimated Creatinine Clearance: 120 Goal Trough: 15-20 mcg/mL Pharmacy Plan for Drug Dosing: Pharmacy Service will continue to monitor and adjust dosing as required. Follow-Up Labs: Trough Vancomycin Labs to be done on [date and time ordered]: 06/29/21 @1200
[2021-06-28] MEDS: levoFLOXacin IV 500 MG/100 ML BAG 100 MG IV (02:21)
[2021-06-28] MEDS: Menthol/Lanolin/Calamine/Znox 113 GM Tube 1 APPLIC TOPICAL ×3 (03:01→21:23)
[2021-06-28] MEDS: Nystatin Powder 15gm Bottle 1 APPLIC TOPICAL ×3 (03:01→21:24)
[2021-06-28 07:14] LABS: Absolute Neutrophil Count 9.4 X10^3/uL (2.0-7.7); Basophil# 0.09 X10^3/uL; Basophil% 0.8 % (0-1); Eosinophil# 0.24 X10^3/uL; Mean Corpuscular Hgb 25.4 pg (27.0-32.0); Mean Corpuscular Volume 84.7 fL (81-99); Mean Platelet Vol. 10.5 fl (6.2-12.0); Monocyte# 0.78 X10^3/uL; Monocyte% 6.6 % (0-10); NRBC Flagged by Analyzer 0 % (0-5); Neutrophil # 9.35 X10^3/uL (2.7-7.7); Neutrophil % 79.1 % (47-70); Platelet Count 399 K/mm3 (150-450); RBC Distribution Width CV 19.7 % (11.6-14.6); RBC Distribution Width SD 59.5 fl (35.1-43.9); Red Blood Count 3.54 M/mm3 (4.2-5.4); White Blood Count 11.8 K/mm3 (4.4-11.0)
[2021-06-28 07:37] LABS: Anion Gap 6 (5-15); BUN 9 mg/dL (7-18); BUN/Creat Ratio 28.7 RATIO (10-20); Calcium,Total 8.5 mg/dL (8.5-10.1); Chloride 96 mmol/L (98-107); Creatinine, Serum 0.31 mg/dL (0.55-1.02); EST Glomerular Filtration Rate 220 mL/min (>60); Est Glom Filt Rate - Afr Amer 267 mL/min (>60); Estimated Creatinine Clearance 43.91 ml/min; Glucose 77 mg/dL (74-106); Potassium 3.5 mmol/L (3.5-5.1); Sodium Level 136 mmol/L (136-145)
--- NOTE | 2021-06-28 09:06 | WOUNDNOTE ---
wound photo: sacrum/bilateral ischium
--- NOTE | 2021-06-28 09:07 | WOUNDNOTE ---
wound photo: left elbow
--- NOTE | 2021-06-28 09:08 | WOUNDNOTE ---
wound photo: left heel
--- NOTE | 2021-06-28 09:09 | WOUNDNOTE ---
wound photo: bilateral lower legs
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
[2021-06-28] MEDS: Enoxaparin 40 MG/0.4 ML Syringe SC (10:13)
[2021-06-28 10:54] LABS: M R Staph aureus DNA By PCR Negative (Negative); Probe Check PASS; Specimen Processing Control PASS; Staph aureus DNA By PCR POSITIVE (Negative)
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
--- NOTE | 2021-06-28 18:22 | PCM.PN.HOSP ---
Subjective Subjective Patient was seen and examined today, she was admitted yesterday for generalized debility and decreased mental status, I talked to the wound care nurse today and she states that the patient's wounds appear stable and they do not appear infected. Patient's chest x-ray indicated a possible pneumonia, patient has little if any symptoms of pneumonia at this time, she is on her baseline oxygen at 3 L. Speech therapy is seeing the patient regarding safety of oral intake, I talked briefly with the patient's daughter by phone, the daughter is the POA and she has conferred with other family members and she feels that the patient should have a PEG tube inserted if she is not safe for oral intake. Objective Data Objective Data Vital Signs: Vital Signs Temp Pulse Resp BP Pulse Ox 98 F 90 20 H 110/68 98 06/28/21 16:15 06/28/21 16:19 06/28/21 16:19 06/28/21 16:15 06/28/21 16:19 Oxygen Flow Rate (L/min) 3 Oxygen Delivery Method Nasal Cannula Weight: 56.699 kg Body Mass Index (BMI) 21.4 Intake & Output: Intake and Output for Last 24 Hours 06/26/21 06/27/21 06/28/21 23:59 23:59 23:59 Intake Total 150 / 150 2666.25 / 2666.25 Output Total 900 / 900 Balance 150 / 150 1766.25 / 1766.25 Lab / Micro Data Result Diagrams: 06/28/21 06:40 06/28/21 06:40 Labs: Laboratory Results - last 24 hr 06/27/21 19:54: Urine Color Summer, Urine Clarity Turbid, Urine pH 6.0, Ur Specific [place] 1.020, Urine Protein 100 H, Urine Glucose (UA) Normal, Urine Ketones 5 H, Urine Occult Blood 250 H, Urine Nitrite Negative, Urine Bilirubin 1 H, Urine Urobilinogen 4 H, Ur Leukocyte Esterase 500 H, Urine RBC 0 SEEN, Urine WBC >100 SEEN, Ur Squamous Epith Cells 0 SEEN, Urine Bacteria 0 SEEN, Urine Mucus 0 SEEN 06/27/21 20:00: WBC 9.7, RBC 3.58 L, Hgb 9.3 L, Hct 30.9 L, MCV 86.3, MCH 26.0 L, MCHC 30.1 L, RDW Std Deviation 60.0 H, RDW Coeff of Mirza 19.8 H, Plt Count 443, MPV 9.9, Immature Gran % (Auto) 0.400, Neut % (Auto) 71.5 H, Lymph % (Auto) 16.7 L, [place] % (Auto) 7.6, Eos % (Auto) 2.9, Baso % (Auto) 0.9, Absolute Neuts (auto) 6.9, Absolute Lymphs (auto) 1.62, Nucleated RBC % 0 06/27/21 20:00: PT 16.1 H, INR 1.4, APTT 57.2 H 06/27/21 20:00: Sodium 136, Potassium 3.0 L, Chloride 94 L, Carbon Dioxide 37.0 H, Anion Gap 5, BUN 10, Creatinine 0.37 L, Estim Creat Clear Calc 45.76, Est GFR (MDRD) Af Amer 221, Est GFR (MDRD) Non-Af 183, BUN/Creatinine Ratio 27.1 H, Glucose 98, Calcium 9.0, Total Bilirubin 0.50, AST 16, ALT < 6 L, Alkaline Phosphatase 162 H, Troponin I High Sens 20, Total Protein 5.3 L, Albumin 1.4 L, Globulin 3.9, Albumin/Globulin Ratio 0.4 L 06/27/21 20:00: Lactic Acid 1.3 06/28/21 06:40: WBC 11.8 H, RBC 3.54 L, Hgb 9.0 L, Hct 30.0 L, MCV 84.7, MCH 25.4 L, MCHC 30.0 L, RDW Std Deviation 59.5 H, RDW Coeff of Mirza 19.7 H, Plt Count 399, MPV 10.5, Immature Gran % (Auto) 0.500, Neut % (Auto) 79.1 H, Lymph % (Auto) 11.0 L, [place] % (Auto) 6.6, Eos % (Auto) 2.0, Baso % (Auto) 0.8, Absolute Neuts (auto) 9.4 H, Absolute Lymphs (auto) 1.30, Nucleated RBC % 0 06/28/21 06:40: Sodium 136, Potassium 3.5, Chloride 96 L, Carbon Dioxide 34.0 H, Anion Gap 6, BUN 9, Creatinine 0.31 L, Estim Creat Clear Calc 43.91, Est GFR (MDRD) Af Amer 267, Est GFR (MDRD) Non-Af 220, BUN/Creatinine Ratio 28.7 H, Glucose 77, Calcium 8.5 06/28/21 07:45: S.aureus Protein A PCR POSITIVE H, MRSA (PCR) Negative Micro: Microbiology 06/27/21 20:00 Blood Culture (Wb) - Venous Blood Culture - Preliminary 06/28/21 07:45 Wound - Sacral Gram Stain - Final 06/27/21 19:54 Urine, Catheterized Urine Culture - Preliminary Gram negative lianne 06/27/21 19:54 Nasal Secretion SARS-CoV-2 Antigen (Rapid) - Final Radiography Diagnostic Testing: Radiology Impression Abdomen/Pelvis CT 06/27/21 19:[address] 06/27/21 19:28 IMPRESSION: NPH should be considered. This is a stable finding. Chronic involutional changes of the brain. Electronically Signed: Jesús Ulrich MD at 21:07 EDT , Service support , Chest X-Ray 06/27/21 20:07 IMPRESSION: Reidentified linear density right lateral most likely represents an artifact. If there is clinical concern for pneumothorax consider a decubitus chest radiographs or chest CT. Otherwise no acute cardiopulmonary findings identified. Electronically Signed: Ricky Fuentes MD at 20:40 EDT Tel , Service support , ADDENDUM: 06/27/212050 IMPRESSION: Reidentified linear density right lateral most likely represents an artifact. If there is clinical concern for pneumothorax consider a decubitus chest radiographs or chest CT. Otherwise no acute cardiopulmonary findings identified. N.B. : The above Results were Read Back by Ricky Fuentes MD to Aleena Rivas MD, and understanding confirmed on 06/27/2021 20:44:45 (ET). Electronically Signed: Ricky Fuentes MD at 20:40 EDT Tel , Service support , Physical Exam Const alert and no apparent distress Constitutional Narrative: Patient appears older than her stated age General Appearance: cooperative, well kempt and well developed Orientation / Consciousness: awake, oriented to person, oriented to place and oriented to time HEENT normocephalic and head/scalp atraumatic Head and Scalp: normocephalic Eyes PERRL, EOMs intact bilaterally and conjunctivae normal Neck nuchal rigidity, supple, no JVD, thyroid normal and no carotid bruits General: trachea midline Resp normal respiratory effort, no retractions, no use of accessory muscles and clear to auscultation bilaterally Auscultation: Negative for rales, rhonchi or wheezes Cardio regular rate, regular rhythm, S1 normal heart sound, S2 normal heart sound, no murmurs, no rub and no gallops GI normal to inspection, nondistended, normoactive bowel sounds, soft to palpation, non-tender and non-distended Extremity Extremity Narrative: Patient has lower extremity contractures Skin no rashes or lesions noted General Skin Exam: no breakdown Neuro CN's II-XII intact bilaterally Neuro Narrative: Patient is alert but confused Sensorium / Orientation: awake and alert Speech: speech normal Psych thought process normal Psych Narrative: Patient is alert but confused Assessment & Plan Assessment/Plan (1) Change in mental status: PLAN: 1. Metabolic encephalopathy on a backdrop of dementia-continue supportive care at this time #2 healthcare acquired pneumonia-I am not absolutely sure of this diagnosis at this time, patient will be treated with vancomycin and Levaquin for now, patient will be reevaluated this weekend #3 Alzheimer's dementia #4 chronic debility #5 Bilateral ischial and sacral pressure injuries-wound care nurse will be participating in her care #6 oropharyngeal dysphagia-patient is being seen by speech therapy, she is currently on a pur?ed with nectar thickened liquid diet This examiner feels that the patient is hospice appropriate, however, after having a conversation with the patient's POA, she does not want hospice involved with patient care. She understands that her mother has dementia and multiple severe medical problems but does not want to stop nutrition to the patient and again she states the family would opt for feeding tube if the patient would need one. Charges/Coding Visit Charges Inpatient E&M: 69350 Subs Hosp L2
[2021-06-28] MEDS: KCL 20MEQ in 0.9% NS 20 MEQ/1,000 ML IV.SOLN. 75 MEQ IV (18:51)
[2021-06-28] MEDS: levoFLOXacin IV 250 MG/50 ML BAG 50 MG IV (21:24)
[2021-06-29] VITALS (7 sets, daily range): BP systolic 110–149; BP diastolic 52–96; PULSE 88–113; RESP 18–20; TEMP 36.4–37.1; O2SAT 96–97
[2021-06-29] MEDS: Acetaminophen 325 MG Tablet 650 MG PO (02:44)
[2021-06-29] MEDS: Juven (unflavored) Packet 1 PACKET PO (07:47)
[2021-06-29] MEDS: Menthol/Lanolin/Calamine/Znox 113 GM Tube 1 APPLIC TOPICAL ×2 (08:56→20:32)
[2021-06-29] MEDS: Nystatin Powder 15gm Bottle 1 APPLIC TOPICAL ×2 (08:56→20:31)
[2021-06-29] MEDS: DAKIN'S SOL HALF STRENGTH (=0.25%) 1 APPLIC TOPICAL (08:57)
[2021-06-29] MEDS: Enoxaparin 40 MG/0.4 ML Syringe SC (09:06)
[2021-06-29] MEDS: KCL 20MEQ in 0.9% NS 20 MEQ/1,000 ML IV.SOLN. 75 MEQ IV (10:00)
--- NOTE | 2021-06-29 13:08 | NURSING ---
attempted lab drawl x2 after lab attempted unsuccessful- residential housekeeper notified.
[2021-06-29 17:13] LABS: Vancomycin, Random Level 45.4 ug/mL (0.0-15.0)
--- NOTE | 2021-06-29 17:51 | PN.HOSP_ITS ---
Subjective Subjective Patient was seen and examined today, I talked at length with her daughter who was in the room during the time of my examination. Patient remains afebrile at this time, she is in no respiratory distress and currently she is on 3 L via nasal cannula. Objective Data Objective Data Vital Signs: Vital Signs Temp Pulse Resp BP Pulse Ox 97.9 F 102 H 18 149/96 H 96 06/29/21 08:45 06/29/21 08:45 06/29/21 08:45 06/29/21 08:45 06/29/21 14:02 Oxygen Flow Rate (L/min) 3 Oxygen Delivery Method Nasal Cannula Weight: 56.699 kg Body Mass Index (BMI) 21.4 Intake & Output: Intake and Output for Last 24 Hours 06/27/21 06/28/21 06/29/21 23:59 23:59 23:59 Intake Total 150 / 150 3278.75 / 3278.75 1561.25 / 1561.25 Output Total 900 / 900 800 / 800 Balance 150 / 150 2378.75 / 2378.75 761.25 / 761.25 Lab / Micro Data Result Diagrams: 06/28/21 06:40 06/28/21 06:40 Labs: Laboratory Results - last 24 hr 06/29/21 14:55: Vancomycin Trough Cancelled 06/29/21 16:49: Random Vancomycin 45.4 H Micro: Microbiology 06/27/21 20:00 Blood Culture (Wb) - Venous Bacteria Detection (PCR) - Final Coag Negative Staph 06/27/21 20:00 Blood Culture (Wb) - Venous Blood Culture - Preliminary Coag Negative Staph 06/28/21 07:45 Wound - Sacral Gram Stain - Final 06/28/21 07:45 Wound - Sacral Wound Culture - Preliminary Gram negative lianne 06/27/21 19:54 Urine, Catheterized Urine Culture - Final Enterobacter cloacae complex 06/27/21 19:54 Nasal Secretion SARS-CoV-2 Antigen (Rapid) - Final Physical Exam Narrative alert and no apparent distress Constitutional Narrative: Patient appears older than her stated age General Appearance: cooperative, well kempt and well developed Orientation / Consciousness: awake, patient is confused HEENT normocephalic and head/scalp atraumatic Head and Scalp: normocephalic Eyes PERRL, EOMs intact bilaterally and conjunctivae normal Neck nuchal rigidity, supple, no JVD, thyroid normal and no carotid bruits General: trachea midline Resp normal respiratory effort, no retractions, no use of accessory muscles and clear to auscultation bilaterally Auscultation: Negative for rales, rhonchi or wheezes Cardio regular rate, regular rhythm, S1 normal heart sound, S2 normal heart sound, no murmurs, no rub and no gallops GI normal to inspection, nondistended, normoactive bowel sounds, soft to palpation, non-tender and non-distended Extremity Extremity Narrative: Patient has lower extremity contractures Skin no rashes or lesions noted General Skin Exam: no breakdown Neuro CN's II-XII intact bilaterally Neuro Narrative: Patient is alert but confused Sensorium / Orientation: awake and alert Speech: speech normal Psych Psych Narrative: Patient is alert but confused Assessment & Plan Assessment/Plan (1) Pneumonia: QUALIFIERS: Pneumonia type: due to unspecified organism Laterality: bilateral Lung location: unspecified part of lung Qualified Code(s): J18.9 - Pneumonia, unspecified organism (2) Change in mental status: PLAN: 1. Metabolic encephalopathy on a backdrop of dementia-continue supportive care at this time #2 healthcare acquired pneumonia-I am not absolutely sure of this diagnosis at this time, patient will be treated with vancomycin and Levaquin for now, patient will be reevaluated #3 Alzheimer's dementia #4 chronic debility #5 Bilateral ischial and sacral pressure injuries-wound care nurse will be parti cipating in her care, no surgery is planned #6 oropharyngeal dysphagia-patient is being seen by speech therapy, she is currently on a pur?ed with nectar thickened liquid diet This examiner feels that the patient is hospice appropriate, however, after having a conversation with the patient's POA, she does not want hospice involved with patient care. She understands that her mother has dementia and multiple severe medical problems but does not want to stop nutrition to the patient and again she states the family would opt for feeding tube if the patient would need one. Charges/Coding Visit Charges Inpatient E&M: 23705 Subs Hosp L2
--- NOTE | 2021-06-29 18:29 | PCM.RX.CS ---
Consult Pharmacy has been consulted to manage selected antiobiotic: Vancomycin Type of Consult: Follow-up Suspected Infection: Sepsis Labs: Sodium 136 mmol/L (136-145) 06/28/21 06:40 Potassium 3.5 mmol/L (3.5-5.1) 06/28/21 06:40 Chloride 96 mmol/L (98-107) L 06/28/21 06:40 Carbon Dioxide 34.0 mmol/L (21.0-32.0) H 06/28/21 06:40 Anion Gap 6 (5-15) 06/28/21 06:40 BUN 9 mg/dL (7-18) 06/28/21 06:40 Creatinine 0.31 mg/dL (0.55-1.02) L 06/28/21 06:40 Est GFR (MDRD) Af Amer 267 mL/min (>60) 06/28/21 06:40 Est GFR (MDRD) Non-Af 220 mL/min (>60) 06/28/21 06:40 BUN/Creatinine Ratio 28.7 RATIO (10-20) H 06/28/21 06:40 Glucose 77 mg/dL (74-106) 06/28/21 06:40 Vancomycin Trough Cancelled 06/29/21 14:55 Random Vancomycin 45.4 ug/mL (0.0-15.0) H 06/29/21 16:49 Microbiology: Microbiology 06/27/21 20:00 Blood Culture (Wb) - Venous Bacteria Detection (PCR) - Final Coag Negative Staph 06/27/21 20:00 Blood Culture (Wb) - Venous Blood Culture - Preliminary Coag Negative Staph 06/28/21 07:45 Wound - Sacral Gram Stain - Final 06/28/21 07:45 Wound - Sacral Wound Culture - Preliminary Gram negative lianne 06/27/21 19:54 Urine, Catheterized Urine Culture - Final Enterobacter cloacae complex 06/27/21 19:54 Nasal Secretion SARS-CoV-2 Antigen (Rapid) - Final Weight used for dosin.7 kg Goal Trough: 15-20 mcg/mL Pharmacy Plan for Drug Dosing: random level done 06/29/21 @1649 45.9 this was less then 2 hours after last dose. Hold dose of vancomycin tonight a random level with AM labs Pharmacy Service will continue to monitor and adjust dosing as required. Labs to be done on [date and time ordered]: 06/30/2021 0600 random level
[2021-06-29] MEDS: oxyCODONE 5 MG Tablet PO (20:31)
[2021-06-29] MEDS: 0.9% Saline Lock 10 ML Syringe IV (20:31)
[2021-06-29] MEDS: levoFLOXacin IV 250 MG/50 ML BAG 50 MG IV (22:11)
[2021-06-30] VITALS (8 sets, daily range): BP systolic 118–138; BP diastolic 82–83; PULSE 85–144; RESP 18–30; TEMP 36.5–37.2; O2SAT 92–95
[2021-06-30] MEDS: KCL 20MEQ in 0.9% NS 20 MEQ/1,000 ML IV.SOLN. 75 MEQ IV (03:18)
[2021-06-30 07:48] LABS: Vancomycin, Random Level 35.3 ug/mL (0.0-15.0)
[2021-06-30] MEDS: 0.9% Saline Lock 10 ML Syringe IV (10:54)
[2021-06-30] MEDS: Juven (unflavored) Packet 1 PACKET PO (10:55)
[2021-06-30] MEDS: Menthol/Lanolin/Calamine/Znox 113 GM Tube 1 APPLIC TOPICAL (10:55)
[2021-06-30] MEDS: Enoxaparin 40 MG/0.4 ML Syringe SC (10:56)
[2021-06-30] MEDS: Nystatin Powder 15gm Bottle 1 APPLIC TOPICAL (10:56)
[2021-06-30] MEDS: DAKIN'S SOL HALF STRENGTH (=0.25%) 1 APPLIC TOPICAL (10:56)
--- NOTE | 2021-06-30 11:39 | PCM.DC ---
Discharge Instructions Diet Discharge Diet: - (pureed diet with nectar thickened liquids) Activity Discharge Activity: Return to Normal Activity Weight Bearing Status: No weight bearing Follow Up Care Test Results: Test results from this visit will be discussed in further detail at your follow-up appointment, if applicable. Discharge Plan Admission Admit Date/Time: 06/27/21 22:37 Primary Reason for Your Visit: pneumonia Attending Provider: Puneet Mi Primary Care Provider: Ifeanyi Duong Discharge Orders/Prescriptions Prescriptions: New nystatin [Nyamyc] 100,000 unit/gram Powder 1 applic topical BID Qty: 0 RF: 0 HySept 0.25 % Solution 1 applic topical DAILY Qty: 0 RF: 0 levofloxacin 500 mg tablet 500 mg PO DAILY Qty: 7 RF: 0 Continued aspirin 81 mg Tablet,Delayed Release (Dr/Ec) 81 mg PO DAILY RF: 0 hydrochlorothiazide 12.5 mg Capsule 12.5 mg PO DAILY RF: 0 losartan 100 mg Tablet 100 mg PO DAILY RF: 0 metoprolol tartrate 25 mg tablet 12.5 mg PO BID RF: 0 oxycodone 5 mg tablet 5 - 7.5 mg PO Q8H PRN PRN (Reason: Pain) RF: 0 Changed fluconazole 200 mg Tablet 200 mg PO DAILY Qty: 0 RF: 0 Referrals / Follow Up: Ifeanyi Duong MD [Primary Care Provider] - Within 2 Weeks Tawanda Sood MD [STAFF PHYSICIAN] - Disposition Disposition (needs filled in before D/C Order can be placed): Home Health Service
[2021-06-30] MEDS: oxyCODONE 5 MG Tablet PO (11:59)
--- NOTE | 2021-06-30 14:06 | NURSING ---
Chloé -pts daughter is aware that pt is coming home today and this nurse will call her back with a time for miner pick.
--- NOTE | 2021-06-30 15:13 | NURSING ---
This nurse went into pts room to get discharge vital signs. Monitor showed HR was in 140's. This nurse listened to apical and got 128/min with respirations of 30min. Transport was here to cotton picker. Pt drowsy but recently had oxyir po. Dr. Mi aware of all the above. Order to give lopressor 25mg po x1 now and have transport come back later today if HR gets controlled. Will give lopressor and monitor.
[2021-06-30] MEDS: Metoprolol Tartrate 25 MG Tablet PO (15:57)
--- NOTE | 2021-06-30 18:34 | NURSING ---
Vitals taken at 1800, see intervention. Dr. Mi aware of Vitals taken. okay to send home per Dr. Johnson just to make sure she takes her lopressor again tonight. This nurse will call Daughter to inform.
--- NOTE | 2021-06-30 19:15 | NURSING ---
Spoke with Chloé, patients daughter. She is aware of discharge instructions that were read to her over the phone. She is aware that lopressor should be given tonight and oxycodone can be given after 1999. We also talked about nectar thickened liquid/puree diet that S.T recommends and what that meant. No questions asked regarding discharge.
--- NOTE | 2021-06-30 19:17 | PCM.DC.SUM ---
Providers Date of Admission: 06/27/21 Date of Discharge: 06/30/21 Primary Care Physician: Dr. 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 Routine Comment: Reason for Consult:: Stage IV pressure ulcer; colostomy Reason For Visit: ACUTE ENCEPHALOPATHY Diagnosis Discharge Diagnosis (1) Pneumonia: Status: Acute Code(s): J18.9 - Pneumonia, unspecified organism Qualifiers: Pneumonia type: due to unspecified organism Laterality: bilateral Lung location: unspecified part of lung Qualified Code(s): J18.9 - Pneumonia, unspecified organism (2) Change in mental status: Status: Acute Code(s): R41.82 - Altered mental status, unspecified Medications at Discharge Home Medications aspirin 81 mg PO DAILY 06/17/21 hydrochlorothiazide 12.5 mg PO DAILY 06/17/21 losartan 100 mg PO DAILY 06/17/21 metoprolol tartrate 12.5 mg PO BID 06/17/21 oxycodone 5 - 7.5 mg PO Q8H PRN PRN 06/29/21 fluconazole 200 mg PO DAILY #0 tab 06/30/21 levofloxacin 500 mg PO DAILY #7 tab 06/30/21 nystatin [Nyamyc] 1 applic TOPICAL BID #0 g 06/30/21 sodium hypochlorite [HySept] 1 applic TOPICAL DAILY #0 ml 06/30/21 Weight / BMI Weight Weight: 56.699 kg Body Mass Index (BMI) 21.4 ABG / Lab / Microbiology Data Result Diagrams: 06/28/21 06:40 06/28/21 06:40 Laboratory: Laboratory Results - last 24 hr 06/30/21 06:48: Random Vancomycin 35.3 H Microbiology: Microbiology 06/28/21 07:45 Wound - Sacral Gram Stain - Final 06/28/21 07:45 Wound - Sacral Wound Culture - Preliminary Pseudomonas aeroginosa Gram negative lianne Gram Positive Cocci 06/28/21 07:45 Wound - Sacral Anaerobic Culture - Preliminary Checking for anaerobes, further studies to follow. 06/27/21 20:00 Blood Culture (Wb) - Venous Bacteria Detection (PCR) - Final Coag Negative Staph 06/27/21 20:00 Blood Culture (Wb) - Venous Blood Culture - Final Coag Negative Staph 06/27/21 19:54 Urine, Catheterized Urine Culture - Final Enterobacter cloacae complex 06/27/21 19:54 Nasal Secretion SARS-CoV-2 Antigen (Rapid) - Final D/C Instructions Discharge Diet: - (pureed diet with nectar thickened liquids) Weight Bearing Status: No weight bearing Discharge Plan Admission Admit Date/Time: 06/27/21 22:37 Primary Reason for Your Visit: pneumonia Attending Provider: Puneet Mi Primary Care Provider: Ifeanyi Duong Discharge Orders/Prescriptions Prescriptions: New nystatin [Nyamyc] 100,000 unit/gram Powder 1 applic topical BID Qty: 0 RF: 0 HySept 0.25 % Solution 1 applic topical DAILY Qty: 0 RF: 0 levofloxacin 500 mg tablet 500 mg PO DAILY Qty: 7 RF: 0 Continued aspirin 81 mg Tablet,Delayed Release (Dr/Ec) 81 mg PO DAILY RF: 0 hydrochlorothiazide 12.5 mg Capsule 12.5 mg PO DAILY RF: 0 losartan 100 mg Tablet 100 mg PO DAILY RF: 0 metoprolol tartrate 25 mg tablet 12.5 mg PO BID RF: 0 oxycodone 5 mg tablet 5 - 7.5 mg PO Q8H PRN PRN (Reason: Pain) RF: 0 Changed fluconazole 200 mg Tablet 200 mg PO DAILY Qty: 0 RF: 0 Referrals / Follow Up: Ifeanyi Duong MD [Primary Care Provider] - Within 2 Weeks Tawanda Sood MD [STAFF PHYSICIAN] - Disposition Disposition (needs filled in before D/C Order can be placed): Home Health Service
--- NOTE | 2021-06-30 20:01 | PCM.DC.SUM ---
Providers Date of Admission: 06/27/21 Date of Discharge: 06/30/21 Primary Care Physician: Dr. Ifeanyi Duong MD Consultations 06/27/21 23:35 Consult: Onc/Wound/correctional therapy teacher Routine Comment: Reason for Consult:: Stage IV pressure ulcer; colostomy Reason For Visit: ACUTE ENCEPHALOPATHY Diagnosis Discharge Diagnosis (1) Pneumonia: Status: Acute Code(s): J18.9 - Pneumonia, unspecified organism Qualifiers: Pneumonia type: due to unspecified organism Laterality: bilateral Lung location: unspecified part of lung Qualified Code(s): J18.9 - Pneumonia, unspecified organism (2) Change in mental status: Status: Acute Code(s): R41.82 - Altered mental status, unspecified Plan: 1. 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 #6 oropharyngeal dysphagia Medications at Discharge Home Medications aspirin 81 mg PO DAILY 06/17/21 hydrochlorothiazide 12.5 mg PO DAILY 06/17/21 losartan 100 mg PO DAILY 06/17/21 metoprolol tartrate 12.5 mg PO BID 06/17/21 oxycodone 5 - 7.5 mg PO Q8H PRN PRN 06/29/21 fluconazole 200 mg PO DAILY #0 tab 06/30/21 levofloxacin 500 mg PO DAILY #7 tab 06/30/21 nystatin [Nyamyc] 1 applic TOPICAL BID #0 g 06/30/21 sodium hypochlorite [HySept] 1 applic TOPICAL DAILY #0 ml 06/30/21 Hospital Course Operations None Procedures None Summary of Care Provided Minutes Spent on Discharge: 31 Hospital Course: This 71-year-old white female was brought into the emergency room at [facility] by her daughter who is her manager leasing with complaints of mental status changes, patient had previously been on hospice care at home but the daughter revoked the care. Patient does not ambulate and has a history of dementia. Patient's daughter felt that her output from her colostomy bag was decreased. Work-up in the emergency room included a chest x-ray which showed no acute cardiopulmonary findings, there was a linear density in the right lateral aspect of the lung which was called an artifact. CT of the abdomen and pelvis however showed evidence of bilateral pneumonia, there were bilateral pleural effusions noted. No other acute findings were noted. Patient's white blood cell count was 11.8, she was afebrile. Patient was admitted to [place] [address], she was seen by the wound care nurse due to chronic pressure injuries of her sacral area, she was not felt to be infected from these pressure injuries, patient was treated for healthcare acquired pneumonia, patient's oxygen requirement did not increase while she was in the hospital. I had several conversations with her daughter during end-of-life care for her mother, she did not want hospice to see the patient however, and the patient was seen by speech therapy who modified her diet. Patient's daughter requested that the patient be discharged home under her care On 06/30/2021, patient was seen and examined: On examination she appeared frail and unwell, she does not appear to be in any distress. Vital signs as documented. Skin warm and dry and without overt rashes. Neck without JVD, thyroid appears normal, trachea is midline, neck is supple. Lungs clear, normal air movement was noted. Heart exam notable for regular rhythm, normal sounds and absence of murmurs, rubs or gallops. Abdomen unremarkable and without evidence of organomegaly, masses, or abdominal aortic enlargement, bowel sounds are present in all 4 quadrants, no abdominal tenderness was noted. Extremities nonedematous, no cyanosis was noted, no clubbing was noted. Neuro: Cranial nerves II through XII are grossly intact, no focal motor deficits were noted, sensation to light touch and pinprick is intact, motor exam 5/5 throughout. Psych: Patient was alert, she responded to some commands appropriately, she was confused On 06/30/2021, patient was seen and examined and discharged home in stable condition Weight / BMI Weight Weight: 56.699 kg Body Mass Index (BMI) 21.4 ABG / Lab / Microbiology Data Result Diagrams: 06/28/21 06:40 06/28/21 06:40 Laboratory: Laboratory Results - last 24 hr 06/30/21 06:48: Random Vancomycin 35.3 H Microbiology: Microbiology 06/28/21 07:45 Wound - Sacral Gram Stain - Final 06/28/21 07:45 Wound - Sacral Wound Culture - Preliminary Pseudomonas aeroginosa Gram negative lianne Gram Positive Cocci 06/28/21 07:45 Wound - Sacral Anaerobic Culture - Preliminary Checking for anaerobes, further studies to follow. 06/27/21 20:00 Blood Culture (Wb) - Venous Bacteria Detection (PCR) - Final Coag Negative Staph 06/27/21 20:00 Blood Culture (Wb) - Venous Blood Culture - Final Coag Negative Staph 06/27/21 19:54 Urine, Catheterized Urine Culture - Final Enterobacter cloacae complex 06/27/21 19:54 Nasal Secretion SARS-CoV-2 Antigen (Rapid) - Final D/C Instructions Discharge Diet: - (pureed diet with nectar thickened liquids) Weight Bearing Status: No weight bearing Meaningful Use Info Meaningful Use Diagnoses (Choose all that apply): None applicable Discharge Plan Admission Admit Date/Time: 06/27/21 22:37 Primary Reason for Your Visit: pneumonia Attending Provider: Puneet Mi Primary Care Provider: Ifeanyi Duong Discharge Orders/Prescriptions Prescriptions: New nystatin [Nyamyc] 100,000 unit/gram Powder 1 applic topical BID Qty: 0 RF: 0 HySept 0.25 % Solution 1 applic topical DAILY Qty: 0 RF: 0 levofloxacin 500 mg tablet 500 mg PO DAILY Qty: 7 RF: 0 Continued aspirin 81 mg Tablet,Delayed Release (Dr/Ec) 81 mg PO DAILY RF: 0 hydrochlorothiazide 12.5 mg Capsule 12.5 mg PO DAILY RF: 0 losartan 100 mg Tablet 100 mg PO DAILY RF: 0 metoprolol tartrate 25 mg tablet 12.5 mg PO BID RF: 0 oxycodone 5 mg tablet 5 - 7.5 mg PO Q8H PRN PRN (Reason: Pain) RF: 0 Changed fluconazole 200 mg Tablet 200 mg PO DAILY Qty: 0 RF: 0 Referrals / Follow Up: Ifeanyi Duong MD [Primary Care Provider] - Within 2 Weeks Tawanda Sood MD [STAFF PHYSICIAN] - Disposition Disposition (needs filled in before D/C Order can be placed): Home Health Service Charges/Coding Visit Charges Inpatient E&M: 58586 Disch Hosp
--- NOTE | 2021-06-30 20:21 | NURSING ---
pt d/c at this time. ambulance came to pick pt up. pt stable, belongings sent w/ pt. called pts brenda Luevano to make her aware pt is getting transported.
--- NOTE | 2021-07-01 09:33 | CASEMGMT ---
Social Work Note Pt discharged home yesterday. CHRISSY called Brain with [facility] and let her know. CHRISSY placed a call to [facility] and spoke with ella Wheeler and let her know pt discharged home yesterday. CHRISSY faxed discharge paperwork to [facility]. Jennifer Newman PROSTHETICS TECHNICIAN, STEREOTYPE MOLDER
--- NOTE | 2021-07-01 15:35 | CASEMGMT ---
RN NIMA Discharge Follow Up Phone Call: NIRU: 15 Strata: 4 Call Date: 07/01/21 Discharge Date: 06/30/21 Time of Call:[id number] Duration:3 min Admitting Dx: acute encephalopathy RN NIMA completed follow up phone call after recent hospitalization with patient dtr Chloé. She states pt is doing well since being home. States she is drinking and eating. She does report that pt is eating a pureed diet and thickened liquids. She is inquiring on where to buy thickener. She states she was able to fern picker pt rx without difficulty. Pt has an appt at the [facility] this and an appt with the first week in July. Made Chloé aware that [facility] is unable to accept pt for HHC. She states that is ok because her pressure ulcer is courtesy of them. Discussed other options of C agencies. She states her father is using [facility]. [facility] does not accept [facility]. Pt dtr states she does not care who the agency is as long as it is not [facility]. She states in the meantime, she is in good hands. Pt dtr performs wound care, ostomy care, etc. Made dtr aware that this RN NIMA will work on getting a HHC agency and call her back with the information as well as where to purchase the thickener. She is aware it may not be yet today and verbalizes understanding of this.
--- NOTE | 2021-07-02 14:23 | CASEMGMT ---
SCOOBY HERRING made tc to [facility], left another message regarding referral. TC to [facility] for referral, per Serina they are unable to take patient back as they have seen patient and requires more care than they are able to provide. TC to [facility], they are unable to accept pt as they have had in the past and patient is noncompliant and unsafe to be at home. Referrals sent via fax to [facility], [facility], [facility], [facility] and [facility]. Will await acceptance from any of these agencies.
--- NOTE | 2021-07-03 16:24 | CASEMGMT ---
Received tc from [facility] and [facility], they are unable to accept pt. TC to pt dtr Chloé. She is aware of where she can purchase thickener, either at a pharmacy or [facility]. She states [facility] has been in contact with her and they will be coming out to admit pt to services tomorrow. She denies further questions or concerns at this time.
== END 2021-06-30 20:15 | disposition home health service (06) | DRG 193 ==
LOC: ED 22:29 → MS3 23:24
PROVIDERS: Admitting Provider Hospitalist; Emergency Provider Emergency Medicine; PCP Family Medicine; Visit Provider Internal Medicine
DX: J18.9 Pneumonia, unspecified organism (principal); L89.154 Pressure ulcer of sacral region, stage 4; G93.41 Metabolic encephalopathy; B49 Unspecified mycosis; Y95 Nosocomial condition; G30.9 Alzheimer's disease, unspecified; F02.80 Dementia in other diseases classified elsewhere, unspecified severity, without behavioral disturbance, psychotic disturbance, mood disturbance, and anxiety; I48.91 Unspecified atrial fibrillation; I25.10 Atherosclerotic heart disease of native coronary artery without angina pectoris; K21.9 Gastro-esophageal reflux disease without esophagitis; I10 Essential (primary) hypertension; E11.51 Type 2 diabetes mellitus with diabetic peripheral angiopathy without gangrene; F17.210 Nicotine dependence, cigarettes, uncomplicated; E87.6 Hypokalemia; L89.220 Pressure ulcer of left hip, unstageable; L89.210 Pressure ulcer of right hip, unstageable; I69.391 Dysphagia following cerebral infarction; L89.622 Pressure ulcer of left heel, stage 2; R13.12 Dysphagia, oropharyngeal phase; L89.611 Pressure ulcer of right heel, stage 1; Z93.3 Colostomy status; Z79.899 Other long term (current) drug therapy; Z79.82 Long term (current) use of aspirin; Z86.14 Personal history of Methicillin resistant Staphylococcus aureus infection
CPT/HCPCS: 36415; 70450; 71045; 74176; 80048; 80053; 80202; 81001; 83605; 84484; 85025; 85610; 85730; 87040; 87070; 87075; 87077; 87086; 87088; 87149; 87186; 87205; 87426; 87640; 92526; 92610; 93005; 97802; 99285; 99406; J7030; J7040; J7050; A4216

== ENCOUNTER 2021-07-04 14:07 | Outpatient (RCR) | payer MEDICARE, MEDICAID, SELFPAY ==
--- NOTE | 2021-07-04 16:33 | HP.PCM_ITS ---
History of Present Illness Date of Service: 07/04/21 Chief Complaint: Sacral pressure sore, Stage IV. History of Wound: The patient is a 71-year-old female presenting for treatment of multiple wounds: Stage IV pressure ulcer to her sacrum, wound to her right gluteal fold, wound to her left gluteal fold, DTI to her left heel, DTI to her left medial malleolus. She has a past medical history as listed above. This patient has been previously seen at this wound healing center. She prese nts here today with her daughter. Her daughter is doing all of the speaking for her as during the visit today patient was unable to respond to questions and was moaning in pain. she has been in multiple nursing homes and was receiving hospice care, but opted to discontinue hospice services and is currently living in an apartment with her with her family visiting frequently. She also has [facility] home health services including long-term. She wears oxygen via nasal cannula, is a former smoker who quit approximately 2 months ago, she has a colostomy and indwelling Huston catheter for wound healing, and has an air mattress. She is currently on Levaquin as prescribed by her PCP for an infection to her sacral wound, and takes chronic Diflucan as well. The patient is a poor historian and is very hard of hearing, but her daughter is with her who is her POA and is able to answer questions on her mother's behalf. Currently, the patient's wounds are being cleaned with Dakin's solution daily and being covered with ABDs daily and as needed. The patient's DTI's are not being treated at this time, but she does wear protective foam boots at all times. Earlier this year the patient did have a right hip replacement after a fracture. Since then is when she developed the new wounds in addition to her chronic sacral pressure ulcer. The patient's daughter does state that when the patient was seen at the wound center before she was following up with Alexandrea KIRBY and would like to transfer the patient's care to her as soon as possible. Surgery 03/11/21 - Excision necrotic sacral pressure sore, Stage IV, with partial ostectomy for osteomyelitis. [facility] Medical History (Updated 07/04/21 @ 16:56 by Puneet Hensley NP, DENTAL INTERN-C) Atrial fibrillation CAD (coronary artery disease) Chronic indwelling Huston catheter Chronic neck pain Chronic pain Chronic ulcer of left heel with fat layer exposed Colostomy in place Decubitus ulcer of left heel, stage 4 Dementia Depression Dysphagia following cerebrovascular accident (CVA) Essential hypertension GERD (gastroesophageal reflux disease) Gout History of MRSA infection History of pressure ulcer Intertrochanteric fracture of left hip Left humeral fracture Neurogenic bladder On home oxygen therapy Osteoporosis PAD (peripheral artery disease) Pressure injury of buttock, unstageable Pressure injury of deep tissue of left heel Smoker Stroke/cerebrovascular accident Tobacco abuse Type II diabetes mellitus Vitamin D deficiency Home Medications aspirin 81 mg PO DAILY 06/17/21 [History Last Taken Unknown] hydrochlorothiazide 12.5 mg PO DAILY 06/17/21 [History Last Taken Unknown] losartan 100 mg PO DAILY 06/17/21 [History Last Taken Unknown] metoprolol tartrate 12.5 mg PO BID 06/17/21 [History Last Taken Unknown] oxycodone 5 - 7.5 mg PO Q8H PRN PRN 06/29/21 [History Last Taken Unknown] fluconazole 200 mg PO DAILY #0 tab 06/30/21 [Rx Last Taken Unknown] levofloxacin 500 mg PO DAILY #7 tab 06/30/21 [Rx Last Taken Unknown] nystatin [Nyamyc] 1 applic TOPICAL BID #0 g 06/30/21 [Rx Last Taken Unknown] sodium hypochlorite [HySept] 1 applic TOPICAL DAILY #0 ml 06/30/21 [Rx Last Taken Unknown] acetaminophen [Acetaminophen Extra Strength] 500 mg PO Q8H PRN 07/04/21 [History Last Taken Unknown] Allergy/AdvReac Type Severity Reaction Status Date / Time amoxicillin [From Augmentin] Allergy Rash Verified 07/04/21 14:28 atorvastatin [From Lipitor] Allergy Other Verified 07/04/21 14:28 clavulanic acid Allergy Rash Verified 07/04/21 14:28 [From Augmentin] gabapentin Allergy Nausea Verified 07/04/21 14:28 lisinopril Allergy PT UNSURE Verified 07/04/21 14:28 OF REACTION mold Allergy PT UNSURE Verified 07/04/21 14:28 OF REACTION pollen extracts Allergy PT UNSURE Verified 07/04/21 14:28 OF REACTION quinapril [From Accupril] Allergy Rash Verified 07/04/21 14:28 ragweed pollen Allergy PT UNSURE Verified 07/04/21 14:28 OF REACTION simvastatin [From Zocor] Allergy PT UNSURE Verified 07/04/21 14:28 OF REACTION tramadol Allergy PT UNSURE Verified 07/04/21 14:28 OF REACTION tuberculin, purified protein Allergy PT UNSURE Verified 07/04/21 14:28 deriva OF REACTION fluoxetine AdvReac Other Verified 07/04/21 14:28 Family History Mother Tuberculosis Father Heart disease CVA (cerebral vascular accident) Sister Multiple sclerosis Brother Heart disease Surgical History History of appendectomy History of lumpectomy of right breast History of partial hysterectomy History of right-sided carotid endarterectomy Hx of bladder repair surgery Hx of tonsillectomy Social History household members: none Smoking Status: Current every day smoker tobacco type: cigarettes Tobacco: How many years used: 53 second hand exposure: Yes alcohol intake: never substance use type: does not use caffeine: Yes what type of physical activity do you participate in: none frequency: does not exercise ROS Review of Systems ROS Unobtainable: due to mental status Physical Exam Const Constitutional Narrative: Patient appears to be in a lot of chronic pain and is moaning throughout exam and throughout position changes General Appearance: ill appearing Positive for chronically, frail and appears older than stated age Orientation / Consciousness: awake and confused Exam Limitations: altered mental status Nutritional Appearance: underweight Cardio regular rate GI GI Narrative: Diverting colostomy in place Narrative: Huston catheter in place Skin Skin Narrative: Stage IV sacral pressure injury with large amounts of slough, no purulent drainage but the wound bed is mostly granular and beefy red, unstageable bilateral buttock pressure injuries with large amounts of slough and devitalized tissue, suspected deep tissue injury to left heel and left medial malleolus with eschar present Neuro Sensorium / Orientation: orientation impaired Debridement Note Debridement Note Wound debrided: Stage IV sacral pressure ulcer Type of Debridement: Excisional debridement Anesthesia Used: 5% Lidocaine Gel Depth: Down to and including healthy tissue and in the subcutaneous layer Percentage of wound debrided: 100 Instrument Used: 5mm curette Tissue Removed: Slough and devitalized tissue Severity: Fat Layer Exposed Amount of bleeding with debridement: Mild Bleeding Controlled with: Pressure Patient tolerated procedure: Patient tolerated procedure well Post-Debridement Measurements and Additional Note: Post-Debridement Measurements/Treatment - Nurse 1 - General Ulcer Assessment Start: 07/04/21 14:12 Freq: Status: Active Protocol: DENIA Activity Type Activity Date Activity User E-Sign Co-Sign Detail Recorded Client Recorded Date Recorded By Document 07/04/21 14:12 [facility] [id number] 07/04/21 14:26 [facility] 07/04/21 14:12 WC - Today's Visit Information Type of service Initial Visit Arrival Mode Stretcher Transfer Assistance Manual Transfer Assist (Other) 4 assist Accompanied by daughter Patient Identification Verified (Name & Yes ) Patient Requires Transmission-Based No Precautions Vital Signs Comment pt in a lot of pain, refused vitals Pain Scale: 0-10 Numeric Is Patient Pain Free? No generalized -Duration (hours) Chronic -Pain Behavior Guarding, Withdrawal from Touch,Facial Grimacing -Alleviating Factors/Interventions Turning/ Repositioning, Distraction, Will continue to monitor, Emotional Support [facility] Nurse 1 - General Ulcer Measurement Start: 07/04/21 14:12 Freq: Status: Active Protocol: Activity Type Activity Date Activity User E-Sign Co-Sign Detail Recorded Client Recorded Date Recorded By Document 07/04/21 14:12 [facility] [id number] 07/04/21 14:26 [facility] 07/04/21 14:12 Wound Center Nurse 1 #9- L MEDIAL ANKLE -Combined with other wound No -Current Size (cm) - Length 2 -Current Size (cm) - Width 0.9 -Current Size (cm) - Depth 0.1 -Total Square Cm 1.8 -Date of Last Picture (Recall this 07/04/21 field) -Photo Taken Yes -Epithelialization None Present -Tunneling No -Undermining/Tunneling No -Circular Undermining No -Exudate Amt None Present -Wound Margin Distinct, Outline Attached -Granulation Amt None Present (0 %) -Slough/Fibrin Yes -Necrosis Amt Large (67-100%) -Necrotic Tissue Type Eschar -Texture (Rachana-wound Skin Appearance) Assessed, Scarring -Moisture (Rachana-wound Skin Appearance) Assessed -Color (Rachana-wound Skin Appearance) Ecchymosis -Temperature (Rachana-wound Skin No Abnormality Appearance) (Pt Warm) -Tenderness on Palpation (Rachana-wound Yes Skin Appearance) -Ulcer Cleansing Rinsed/ Irrigated with Saline -Foul Odor after Cleansing No -Anesthetic Used 4% Lidocaine Solution #8- L HEEL -Combined with other wound No -Current Size (cm) - Length 4.4 -Current Size (cm) - Width 3 -Current Size (cm) - Depth 0.1 -Total Square Cm 13.2 -Date of Last Picture (Recall this 07/04/21 field) -Photo Taken Yes -Epithelialization None Present -Tunneling No -Undermining/Tunneling No -Circular Undermining No -Exudate Amt None Present -Wound Margin Distinct, Outline Attached -Granulation Amt None Present (0 %) -Slough/Fibrin Yes -Necrosis Amt Large (67-100%) -Necrotic Tissue Type Eschar -Texture (Rachana-wound Skin Appearance) Assessed, Fluctuance -Moisture (Rachana-wound Skin Appearance) Assessed -Color (Rachana-wound Skin Appearance) Assessed, Ecchymosis -Temperature (Rachana-wound Skin No Abnormality Appearance) (Pt Warm) -Tenderness on Palpation (Rachana-wound No Skin Appearance) -Ulcer Cleansing Rinsed/ Irrigated with Saline -Foul Odor after Cleansing No -Anesthetic Used 5% Lidocaine Gel #7- L BUTTOCK FOLD -Combined with other wound No -Current Size (cm) - Length 4.2 -Current Size (cm) - Width 4 -Current Size (cm) - Depth 0.1 -Total Square Cm 16.8 -Date of Last Picture (Recall this 07/04/21 field) -Photo Taken Yes -Epithelialization None Present -Tunneling No -Undermining/Tunneling No -Circular Undermining No -Exudate Amt Medium -Exudate Type Serosanguineous -Wound Margin Distinct, Outline Attached -Granulation Amt Small (1-33%) -Granulation Quality Red -Slough/Fibrin Yes -Necrosis Amt Small (1-33%) -Necrotic Tissue Type Eschar -Texture (Rachana-wound Skin Appearance) Assessed, Scarring -Moisture (Rachana-wound Skin Appearance) Assessed -Color (Rachana-wound Skin Appearance) Assessed, Erythema -Temperature (Rachana-wound Skin No Abnormality Appearance) (Pt Warm) -Tenderness on Palpation (Rachana-wound Yes Skin Appearance) -Ulcer Cleansing Soap and Water -Foul Odor after Cleansing No -Anesthetic Used 4% Lidocaine Solution #6- R BUTTOCK FOLD -Combined with other wound No -Current Size (cm) - Length 4.2 -Current Size (cm) - Width 5 -Current Size (cm) - Depth 0.1 -Total Square Cm 21.0 -Date of Last Picture (Recall this 07/04/21 field) -Photo Taken Yes -Epithelialization None Present -Tunneling No -Undermining/Tunneling No -Circular Undermining No -Exudate Amt Medium -Exudate Type Serosanguineous -Wound Margin Distinct, Outline Attached -Granulation Amt Medium (34-66%) -Granulation Quality Red -Slough/Fibrin Yes -Necrosis Amt Medium (34-66%) -Necrotic Tissue Type Eschar -Texture (Rachana-wound Skin Appearance) Assessed, Fluctuance -Moisture (Rachana-wound Skin Appearance) Assessed -Color (Rachana-wound Skin Appearance) Assessed, Erythema -Temperature (Rachana-wound Skin No Abnormality Appearance) (Pt Warm) -Tenderness on Palpation (Rachana-wound No Skin Appearance) -Ulcer Cleansing Soap and Water -Foul Odor after Cleansing No -Anesthetic Used 4% Lidocaine Solution #5- SACRAL -Combined with other wound No -Current Size (cm) - Length 11.8 -Current Size (cm) - Width 13 -Current Size (cm) - Depth 2 -Total Square Cm 153.4 -Date of Last Picture (Recall this 07/04/21 field) -Photo Taken Yes -Epithelialization None Present -Tunneling No -Undermining/Tunneling No -Circular Undermining No -Exudate Amt Large -Exudate Type Serosanguineous -Wound Margin Distinct, Outline Attached -Granulation Amt Large (67-100%) -Granulation Quality Red -Slough/Fibrin No -Necrosis Amt None Present (0 %) -Texture (Rachana-wound Skin Appearance) Assessed, Scarring -Moisture (Rachana-wound Skin Appearance) Assessed -Color (Rachana-wound Skin Appearance) Assessed, Erythema -Temperature (Rachana-wound Skin No Abnormality Appearance) (Pt Warm) -Tenderness on Palpation (Rachana-wound Yes Skin Appearance) -Ulcer Cleansing Soap and Water -Foul Odor after Cleansing No -Anesthetic Used 4% Lidocaine Solution WC - Nurse 2 - General Ulcer CM Notes Start: 07/04/21 14:12 Freq: Status: Active Protocol: Activity Type Activity Date Activity User E-Sign Co-Sign Detail Recorded Client Recorded Date Recorded By Document 07/04/21 14:54 MW [id number] 07/04/21 15:07 MW 07/04/21 14:54 Wound Center Nurse 2 #9- L MEDIAL ANKLE -Time 14:57 -Correct Patient Yes -Correct Side, Site, Position Yes -Correct Procedure Yes -Procedure Performed No -Tunneling No -Undermining/Tunneling No -Circular Undermining No -Wound/Ulcer Outcome Not Healed -Ulcer Cleansing Not Cleansed -Foul Odor after Cleansing No -Bioengineered Tissue No -Bleeding Controlled with NA -Offloading No #8- L HEEL -Time 14:58 -Correct Patient Yes -Correct Side, Site, Position Yes -Correct Procedure Yes -Procedure Performed No -Tunneling No -Undermining/Tunneling No -Circular Undermining No -Wound/Ulcer Outcome Not Healed -Ulcer Cleansing Not Cleansed -Foul Odor after Cleansing No -Bioengineered Tissue No -Bleeding Controlled with NA -Offloading No #7- L BUTTOCK FOLD -Time 14:58 -Correct Patient Yes -Correct Side, Site, Position Yes -Correct Procedure Yes -Procedure Performed No -Post Debridement (cm) - Length 4.5 -Post Debridement (cm) - Width 4.0 -Post Debridement (cm) - Depth 0.2 -Total Square (Post) (cm) 18.00 -Tunneling No -Undermining/Tunneling No -Circular Undermining No -Wound/Ulcer Outcome Not Healed -Ulcer Cleansing Rinsed/ Irrigated with Saline -Foul Odor after Cleansing No -Bioengineered Tissue No -Bleeding Controlled with NA #6- R BUTTOCK FOLD -Time 15:03 -Correct Patient Yes -Correct Side, Site, Position Yes -Correct Procedure Yes -Procedure Performed No -Post Debridement (cm) - Length 5.5 -Post Debridement (cm) - Width 9.0 -Post Debridement (cm) - Depth 0.1 -Total Square (Post) (cm) 49.50 -Tunneling No -Undermining/Tunneling No -Circular Undermining No -Wound/Ulcer Outcome Not Healed -Ulcer Cleansing Rinsed/ Irrigated with Saline -Foul Odor after Cleansing No -Bioengineered Tissue No -Bleeding Controlled with NA #5- SACRAL -Time 15:03 -Correct Patient Yes -Correct Side, Site, Position Yes -Correct Procedure Yes -Procedure Performed Yes -Type of Procedure Debridement -Clinical Debridement Subcutaneous -Tissue Removed Subcutaneous -Post Debridement (cm) - Length 13.0 -Post Debridement (cm) - Width 15.0 -Post Debridement (cm) - Depth 2.5 -Total Square (Post) (cm) 195.00 -Area of Debridement (cm) - Length 13.0 -Area of Debridement (cm) - Width 15.0 -Total Square (Area) (cm) 195.00 -Tunneling No -Undermining/Tunneling No -Circular Undermining No -Wound/Ulcer Outcome Not Healed -Ulcer Cleansing Rinsed/ Irrigated with Saline -Foul Odor after Cleansing No -Bioengineered Tissue No -Bleeding Controlled with Pressure -Offloading No -Treatment Response Procedure Tolerated Well -Debridement - Subq, 1st 20sq cm No -Debridement, SubQ, ea addt'l 20sq cm 9 or part thereof Pain Scale: 0-10 Numeric Is Patient Pain Free? Yes WC - Nurse 3 - General Ulcer D/C NN Start: 07/04/21 14:12 Freq: Status: Active Protocol: Activity Type Activity Date Activity User E-Sign Co-Sign Detail Recorded Client Recorded Date Recorded By Document 07/04/21 15:14 DL [id number] 07/04/21 15:26 DL 07/04/21 15:14 Wound Care Nurse 3 #9- L MEDIAL ANKLE -Ulcer Cleansing Soap and Water -Foul Odor after Cleansing No -Other Dressing Beetadine -Primary Dressing Covered/Secured with Dry Gauze & Roll Gauze, Secured with Tape #8- L HEEL -Ulcer Cleansing Soap and Water -Foul Odor after Cleansing No -Other Dressing Betadine -Primary Dressing Covered/Secured with Dry Gauze & Roll Gauze, Secured with Tape -Other Covering abd padding #7- L BUTTOCK FOLD -Ulcer Cleansing Soap and Water -Foul Odor after Cleansing No -Primary Dressing Applied Silvercel -Primary Dressing Covered/Secured with Dry Gauze, Secured with Tape -Silvercel 1 #6- R BUTTOCK FOLD -Ulcer Cleansing Soap and Water -Other Dressing silvercell -Primary Dressing Covered/Secured with Dry Gauze, Secured with Tape #5- SACRAL -Ulcer Cleansing Soap and Water -Foul Odor after Cleansing No -Other Dressing silvercell -Primary Dressing Covered/Secured with Dry Gauze, Secured with Tape Treatment Response Procedure Tolerated Well Pain Scale: 0-10 Numeric Is Patient Pain Free? Yes WC - Visit Discharge Discharge Condition Stable Ambulatory Status Stretcher Transportation Ambulance Facility Type Home Health Orders Sent Yes Charges/Coding Visit Charges Office Visits / Consults: 10127 OV L4 Est Procedures Integumentary [id number]-113xx: 88635 Gypsy subq tissue 20 sq cm/< Add On Codes: 49498 Gypsy subq tissue add-on (X9) Assessment/Plan Assessment/Plan (1) Pressure ulcer of sacral region, stage 4: CODE(S): L89.154 - Pressure ulcer of sacral region, stage 4 (2) Severe malnutrition: CODE(S): E43 - Unspecified severe protein-calorie malnutrition (3) COPD (chronic obstructive pulmonary disease): CODE(S): J44.9 - Chronic obstructive pulmonary disease, unspecified QUALIFIERS: COPD type: unspecified COPD Qualified Code(s): J44.9 - Chronic obstructive pulmonary disease, unspecified (4) Chronic respiratory failure with hypoxia: CODE(S): J96.11 - Chronic respiratory failure with hypoxia (5) Type II diabetes mellitus: CODE(S): E11.9 - Type 2 diabetes mellitus without complications (6) Decubitus ulcer of left heel, stage 4: CODE(S): L89.624 - Pressure ulcer of left heel, stage 4 (7) Chronic ulcer of left heel with fat layer exposed: CODE(S): L97.422 - Non-pressure chronic ulcer of left heel and midfoot with fat layer exposed (8) Pressure injury of deep tissue of left heel: CODE(S): L89.626 - Pressure-induced deep tissue damage of left heel (9) Chronic pain: CODE(S): G89.29 - Other chronic pain (10) Pressure injury of buttock, unstageable: CODE(S): L89.300 - Pressure ulcer of unspecified buttock, unstageable PLAN: Per patient daughter request she will be transferring her care to [facility] DENTAL INTERN Debridement performed today in clinic as annotated above. Silver cell cover with ABDs to sacral pressure ulcer and bilateral buttock pressure injuries, painted iodine cover with gauze with heel protectors to her left heel suspected DTI. At home wound-care instructions: See above wound recommendations, Change dressi ng once daily or more frequently as needed due to contamination. Wash wounds daily with antibacterial soap and water, rinse and dry thoroughly before each dressing change. Compression: Not indicated Off-loading: The patient was instructed to avoid pressure and friction on the affected areas. Reposition every 2 hours at minimum. Avoid prolonged standing and/or dangling of legs. When seated, feet should be elevated at chest level. Frequent ambulation is encouraged. Diet: Patient encouraged to increase protein intake while taking caution to avoid high carbohydrate and/or sugar intake. Smoking: The risks of smoking and benefits of smoking cessation were discussed with the patient today. The patient is encouraged to quit smoking. If smoking cessation aids are desired, the patient should contact their primary care provider to discuss appropriate options. Labs/cultures/imaging: Cultures will be held as she is currently on Levaquin therapy. Routine baseline lab work held. Follow-up: Return to clinic in 1 week for re-evaluation. Return sooner or report to the emergency room should symptoms worsen, or new symptoms arise. Did discuss with the patient's daughter that she seems to be chronically ill and in the lot of pain from her previous surgeries, fractures, and wounds. Given her chronic pain, multiple comorbidities, and poor quality of life patient would benefit from a palliative/hospice referral. The patient's daughter states that she would look into the palliative referral but will not consider hospice at this time as she wishes her mother to on her own time. This note was generated with [employer] dictation software. It may contain incorrect words, spelling, and punctuation that were not noted in checking the note before signing. I have spent 35 minutes today reviewing labs, records, and history. Time includes coordinating care, interpretation of tests, and counseling the patient/family. This also includes time I spent with the patient for exam, treatment plan, and education as well as documenting clinical information in the electronic health record.
== END 2021-07-13 23:59 ==
LOC: WC 14:07
PROVIDERS: PCP Family Medicine; Visit Provider Nurse Practitioner Family
DX: L89.154 Pressure ulcer of sacral region, stage 4 (principal); I48.91 Unspecified atrial fibrillation; I25.10 Atherosclerotic heart disease of native coronary artery without angina pectoris; K21.9 Gastro-esophageal reflux disease without esophagitis; I10 Essential (primary) hypertension; E11.51 Type 2 diabetes mellitus with diabetic peripheral angiopathy without gangrene; F03.90 Unspecified dementia, unspecified severity, without behavioral disturbance, psychotic disturbance, mood disturbance, and anxiety; F17.210 Nicotine dependence, cigarettes, uncomplicated; L97.422 Non-pressure chronic ulcer of left heel and midfoot with fat layer exposed; E11.621 Type 2 diabetes mellitus with foot ulcer; L89.626 Pressure-induced deep tissue damage of left heel; J44.9 Chronic obstructive pulmonary disease, unspecified; Z93.3 Colostomy status; Z99.81 Dependence on supplemental oxygen; Z79.899 Other long term (current) drug therapy; Z79.82 Long term (current) use of aspirin
CPT/HCPCS: 11042; 11045; 99213; G0463

== ENCOUNTER 2021-07-10 12:36 | Inpatient (IN) | payer MEDICARE, MEDICAID, SELFPAY ==
[2021-07-10] VITALS (29 sets, daily range): BP systolic 65–135; BP diastolic 48–117; PULSE 21–100; RESP 14–89; TEMP 35.9–37.2; O2SAT 90–100; BMI 24.5; BMI 23.5
--- NOTE | 2021-07-10 12:53 | ADUL_ITS ---
Reason For Study: Cyanosis Left Velocities Ext Iliac Artery, dist = 273 cm./sec. Common Femoral Artery, mid = 396.5 cm./sec. Supf. Femoral Artery, prox = 17.3 cm./sec. Right FV mid-distal, No flow. Stent noted in the distal FV with no flow. Profunda Femoral Artery = 133.6 cm./sec. Popliteal Artery, mid = 18 cm./sec. Ant. Tibial Artery, distal = 8.9 cm./sec. [employer] REPRESENTATIVE distal, No flow. Peroneal artery distal, No flow. Procedure Calf arteries only noted at the distal calf due to patient positioning and leg pain. Preliminary report to [facility]. Exam performed portable in ED. VL/US Art Duplex Unilat Lower Ext Interpretation Summary Irregular plaque and increased velocities abnormal waveform left distal externa l iliac artery consistent with moderate disease Irregular plaque and increased velocity left common femoral artery with abnorma l waveform consistent with moderate to severe disease. No flow noted in the left distal femoral artery with stent within the vessel an d no flow. Notably diminished flow left popliteal artery and distally Ordering Physician: MD Patric Courtney Referring Physician: Ifeanyi Duong MD Performed By: Jennifer Ag RVT
--- NOTE | 2021-07-10 12:55 | EKG12_ITS ---
Test Reason : Blood Pressure : / mmHG Vent. Rate : 092 BPM Atrial Rate : 084 BPM P-R Int : 000 ms QRS Dur : 082 ms QT Int : 376 ms P-R-T Axes : 000 047 097 degrees QTc Int : 464 ms Accelerated Junctional rhythm Low voltage QRS Nonspecific T wave abnormality Abnormal ECG Confirmed by BETTY SAUCEDO, CARLOS ([id number]), brands editor ROCKY ANGELA ([id number]) on 07/12/2021 9:29:02 AM Referred By: REGI Confirmed By:CARLOS HERNÁNDEZ MD
--- NOTE | 2021-07-10 12:56 | EX.ED.DYSGE1 ---
HPI History of Present Illness Chief Complaint: Lower Extremity Injury Informant: patient and EMS Narrative Narrative: Patient was sent in by home health nurse because of discoloration of her foot, we suspect they were concerned about the left, patient provides very limited information and would not respond to most of my ROS and history questions. Unable to determine if she has had pain in her foot or how long it has been discolored. According to EMS, she lives at home with family, is bedridden, and has a home health nurse and apparently this was a relatively newer nurse for her, it is unknown how well they know her foot or when her symptoms started or when the color changed. Looking at the patient's records, she apparently is on aspirin and has history of paroxysmal atrial fibrillation. She is not anticoagulated. [facility] Medical History Atrial fibrillation CAD (coronary artery disease) Change in mental status Chronic indwelling [place] catheter Chronic neck pain Chronic pain Chronic ulcer of left heel with fat layer exposed Colostomy in place Decubitus ulcer of left heel, stage 4 Dementia Depression Dysphagia following cerebrovascular accident (CVA) Essential hypertension GERD (gastroesophageal reflux disease) Gout History of MRSA infection History of pressure ulcer Intertrochanteric fracture of left hip Left humeral fracture Neurogenic bladder On home oxygen therapy Osteoporosis PAD (peripheral artery disease) Pneumonia Pressure injury of buttock, unstageable Pressure injury of deep tissue of left heel Smoker Stroke/cerebrovascular accident Tobacco abuse Type II diabetes mellitus Vitamin D deficiency Wound infection Home Medications aspirin 81 mg PO DAILY 06/17/21 [History Last Taken 07/10/21] hydrochlorothiazide 12.5 mg PO DAILY 06/17/21 [History Last Taken 07/09/21] losartan 100 mg PO DAILY 06/17/21 [History Last Taken 07/09/21] metoprolol tartrate 12.5 mg PO BID 06/17/21 [History Last Taken 07/10/21] oxycodone 5 - 7.5 mg PO Q8H PRN PRN 06/29/21 [History Last Taken 07/10/21] levofloxacin 500 mg PO DAILY #7 tab 06/30/21 [Rx Last Taken 07/10/21] nystatin [Nyamyc] 1 applic TOPICAL BID #0 g 06/30/21 [Rx Last Taken 07/09/21] acetaminophen [Acetaminophen Extra Strength] 500 mg PO Q8H PRN 07/04/21 [History Last Taken Unknown] ipratropium-albuterol [DuoNeb] 3 ml INHALATION BID 07/10/21 [History Last Taken 07/10/21] Allergy/AdvReac Type Severity Reaction Status Date / Time amoxicillin [From Augmentin] Allergy Rash Verified 07/04/21 14:28 atorvastatin [From Lipitor] Allergy Other Verified 07/04/21 14:28 clavulanic acid Allergy Rash Verified 07/04/21 14:28 [From Augmentin] gabapentin Allergy Nausea Verified 07/04/21 14:28 lisinopril Allergy PT UNSURE Verified 07/04/21 14:28 OF REACTION mold Allergy PT UNSURE Verified 07/04/21 14:28 OF REACTION pollen extracts Allergy PT UNSURE Verified 07/04/21 14:28 OF REACTION quinapril [From Accupril] Allergy Rash Verified 07/04/21 14:28 ragweed pollen Allergy PT UNSURE Verified 07/04/21 14:28 OF REACTION simvastatin [From Zocor] Allergy PT UNSURE Verified 07/04/21 14:28 OF REACTION tramadol Allergy PT UNSURE Verified 07/04/21 14:28 OF REACTION tuberculin, purified protein Allergy PT UNSURE Verified 07/04/21 14:28 deriva OF REACTION fluoxetine AdvReac Other Verified 07/04/21 14:28 Family History Mother Tuberculosis Father Heart disease CVA (cerebral vascular accident) Sister Multiple sclerosis Brother Heart disease Surgical History History of appendectomy History of lumpectomy of right breast History of partial hysterectomy History of right-sided carotid endarterectomy Hx of bladder repair surgery Hx of tonsillectomy Social History household members: none Smoking Status: Current every day smoker tobacco type: cigarettes Tobacco: How many years used: 53 second hand exposure: Yes alcohol intake: never substance use type: does not use caffeine: Yes what type of physical activity do you participate in: none frequency: does not exercise ROS ROS ED Review of Systems ROS Unobtainable: other Details: Disorientation and/or lack of cooperation; patient states ouch when the sheet is pulled up over her to keep her warm, and she is telling nursing to get away from her and to stop as they are attempting to get blood and place an IV. EXAM Physical Exam Const Vital Signs: 07/10/21 12:38 07/10/21 12:57 07/10/21 13:19 Temperature 97.8 F 97.8 F Temperature Source Oral Oral Pulse Rate 93 92 Respiratory Rate 18 21 H Blood Pressure 77/49 L 83/60 L Blood Pressure Mean 58 67 Pulse Ox 100 100 100 Oxygen Delivery Method Nasal Cannula Nasal Cannula Nasal Cannula Oxygen Flow Rate (L/min) 2 2 2 07/10/21 13:20 07/10/21 13:34 07/10/21 13:59 Temperature 98 F Temperature Source Temporal Pulse Rate 91 91 21 L Respiratory Rate 17 31 H 89 H Blood Pressure 77/56 L 84/60 L 65/53 L Blood Pressure Mean 63 68 57 Pulse Ox 100 100 Oxygen Delivery Method Nasal Cannula Room Air Oxygen Flow Rate (L/min) 2 2 07/10/21 14:00 07/10/21 14:05 07/10/21 15:08 Temperature 98 F 98 F 98.1 F Temperature Source Temporal Temporal Temporal Pulse Rate 88 88 90 Respiratory Rate 19 H 19 H 22 H Blood Pressure 76/48 L 76/48 L 135/117 H Blood Pressure Mean 57 57 123 Pulse Ox 96 96 96 Oxygen Delivery Method Nasal Cannula Nasal Cannula Nasal Cannula Oxygen Flow Rate (L/min) 2 2 2 07/10/21 15:37 07/10/21 16:12 07/10/21 16:31 Temperature 98.1 F Temperature Source Temporal Pulse Rate 86 86 80 Respiratory Rate 15 16 16 Blood Pressure 76/52 L 77/51 L 97/73 Blood Pressure Mean 60 59 81 Pulse Ox 100 100 100 Oxygen Delivery Method Nasal Cannula Nasal Cannula Nasal Cannula Oxygen Flow Rate (L/min) 2 2 2 07/10/21 17:03 07/10/21 17:35 Temperature 98.3 F 98.9 F Temperature Source Temporal Temporal Pulse Rate 90 91 Respiratory Rate 22 H 22 H Blood Pressure 85/67 L 86/66 L Blood Pressure Mean 73 72 Pulse Ox 100 99 Oxygen Delivery Method Nasal Cannula Nasal Cannula Oxygen Flow Rate (L/min) 2 2 Positive well nourished and well developed General Appearance ED: well developed and NAD HEENT Reports moist mucous membranes normocephalic and atraumatic Eyes PERRL and EOMs intact bilaterally Neck full ROM and supple Resp normal respiratory effort and clear to auscultation bilaterally Cardio regular rate, regular rhythm and no murmurs GI non-tender and non-distended Auscultation: normoactive bowel sounds Palpation: soft Back/Spine no CVA tenderness General Back: other FROM Extremity no calf tenderness and no pedal edema Extremity Narrative: No pulses palpable in either foot. The right dorsalis pedis is easily dopplerable whereas the left foot is not in either dorsalis pedis or posterior tibial areas. The left popliteal pulse is easily dopplerable. The left plantar foot and toes are cyanotic and cool without tenderness or subcutaneous emphysema or evidence of necrosis. There are multiple scabbed ulcerations and some petechia on the dorsum of the left foot/ankle. General Extremety ED: Yes pulses abnormal; Negative for edema or tenderness General Extremity: pulses abnormal; Negative for edema Neuro CN's II-XII intact bilaterally and no sensory deficits noted Neuro Narrative: Able to move both feet. Sensorium / Orientation: awake, alert and orientation impaired Motor Exam: strength 5/5 throughout Skin no rashes or lesions noted Skin Narrative: Scabbed ulcerative wounds superficial without signs of infection mostly on the left lower leg/foot/ankle MDM MDM MDM Narrative Medical decision making narrative: Patient was started on heparin and arterial duplex of the left lower extremity was obtained, which shows occlusion of femoral artery stent, very little if any blood flow distal to the popliteal vessels, and it all appears to be chronic and not acute. The daughter arrived a little later and provided more history. She helps take care of her at home. She had a hip fracture from unknown etiology when she was at [facility] in May and was transferred to [facility] in [place], she had surgery but she is not able to walk on it now, and she states she was on clopidogrel but they took her off of it at [facility]. She has been off of it since. She has been confused for about 3 days and that is new, she usually is not confused. She is DNR Comfort Care arrest, but she does not want fluids, medications, and feeds held, and they have been looking into getting a feeding tube for her lately since she has not been eating well. Daughter noticed color change on her toes looking more dusky and cyanotic yesterday. She states she also has had a sacral decubitus sore/ulceration that has not required debridement. She does not want the patient to go to a penitentiary. She states she received a blood transfusion a month or so ago, but she is not exactly sure why and thinks maybe it was due to the bleeding from the sacral ulceration. She has had no GI bleeding. She has a diverting colostomy because she is bedridden and has the sacral decubitus ulcer, and she states stool output has been less because she has been eating less but it has been otherwise normal without melena, blood, or other discoloration. Given this history, I added onto more testing including CT of the head, urinalysis, troponin, and I did a Hemoccult of the trace contents of the colostomy bag which returned positive there is no gross blood seen clinically. With gentle IV fluid her blood pressure came up to [address] showed findings consistent with NPH, with this exam being stable compared to recent multiple other exams. From reviewing records and discussing with daughter, the patient did have stents in her left common femoral and left superficial femoral arteries in January [address] Taylor. I discussed with him. He agrees that this patient's clinical scenario is dire. She continues to be hypotensive, he agrees that she probably is not having an acutely ischemic leg since she has no pain, and this probably was a chronic process given the ultrasound findings. Furthermore, no intervention would be indicated with regards to vascular surgery on her left lower extremity especially given her renal failure right now. He would discontinue the heparin. We are having to do that in order to give her a unit of blood anyway since she was such a difficult stick, I discussed that with the daughter, so the heparin was discontinued and we will give her the blood which she still wants her to get. I broached the topic of comfort care. She states this patient was on hospice and the family was not happy with the hospice care she was getting so basically they revoked hospice, are continuing to have palliative care on the case/consultation, and they are actually switching palliative to the [facility] group which they have not done yet. She still is bedbound, and is interested in a feeding tube. I discussed with her that the feeding tube could add to her discomfort and may not prolong her life in a meaningful way and she understands but wants her to have nutrition for comfort reasons, I explained there are other ways to do that, or she could have a Dobbhoff but she may not survive the procedure to get a PEG at this time. We will give her multiple fluid boluses, her pressure was only 113 for short period of time and now was in the 80s with a mean pressure in the 60s. She is lethargic. I recommended making her comfort care. At this time the daughter pleasantly declines and wants her to be DNR CCA but states that she is trying to be reasonable about the fact that she may . We discussed the discomfort associated with an AKA and with doing nothing with an ischemic limb that becomes necrotic and could cause septic shock. All discussed with hospitalist for further inpatient medical care. Will order another unit of PRBC and liter of IVF for her continued hypotension. Will hold off on central line since we just discontinued heparin and the patient was responding to fluids earlier. Lab Data Attestation: I reviewed the patient's lab results. Labs: Laboratory Results - last 24 hr 07/10/21 07/10/21 07/10/21 12:50 12:50 12:50 WBC 8.5 RBC 2.57 L Hgb 6.6 L Hct 22.1 L MCV 86.0 MCH 25.7 L MCHC 29.9 L RDW Std Deviation 64.2 H RDW Coeff of Mirza 21.1 H Plt Count 277 MPV 10.3 Immature Gran % (Auto) 0.600 Neut % (Auto) 73.2 H Lymph % (Auto) 16.4 L [place] % (Auto) 6.1 Eos % (Auto) 3.1 Baso % (Auto) 0.6 Absolute Neuts (auto) 6.2 Absolute Lymphs (auto) 1.39 Nucleated RBC % 0 Hypochromasia 1+ Anisocytosis 1+ APTT Sodium 140 Potassium 5.1 Chloride 104 Carbon Dioxide 31.0 Anion Gap 5 BUN 54 H Creatinine 3.60 H Estim Creat Clear Calc 12.20 Est GFR (MDRD) Af Amer 16 L Est GFR (MDRD) Non-Af 13 L BUN/Creatinine Ratio 15.0 Glucose 68 L Lactic Acid 1.7 Calcium 7.8 L Troponin I High Sens Urine Color Urine Clarity Urine pH Ur Specific [place] Urine Protein Urine Glucose (UA) Urine Ketones Urine Occult Blood Urine Nitrite Urine Bilirubin Urine Urobilinogen Ur Leukocyte Esterase Urine RBC Urine WBC Ur Squamous Epith Cells Amorphous Sediment Urine Bacteria Urine Mucus Urine Yeast Blood Type Antibody Screen Crossmatch 07/10/21 07/10/21 07/10/21 12:50 12:50 14:55 WBC RBC Hgb Hct MCV MCH MCHC RDW Std Deviation RDW Coeff of Mirza Plt Count MPV Immature Gran % (Auto) Neut % (Auto) Lymph % (Auto) [place] % (Auto) Eos % (Auto) Baso % (Auto) Absolute Neuts (auto) Absolute Lymphs (auto) Nucleated RBC % Hypochromasia Anisocytosis APTT 44.7 H Sodium Potassium Chloride Carbon Dioxide Anion Gap BUN Creatinine Estim Creat Clear Calc Est GFR (MDRD) Af Amer Est GFR (MDRD) Non-Af BUN/Creatinine Ratio Glucose Lactic Acid Calcium Troponin I High Sens 122 H* Urine Color Urine Clarity Urine pH Ur Specific [place] Urine Protein Urine Glucose (UA) Urine Ketones Urine Occult Blood Urine Nitrite Urine Bilirubin Urine Urobilinogen Ur Leukocyte Esterase Urine RBC Urine WBC Ur Squamous Epith Cells Amorphous Sediment Urine Bacteria Urine Mucus Urine Yeast Blood Type A NEGATIVE Antibody Screen NEGATIVE Crossmatch See Detail 07/10/21 15:00 WBC RBC Hgb Hct MCV MCH MCHC RDW Std Deviation RDW Coeff of Mirza Plt Count MPV Immature Gran % (Auto) Neut % (Auto) Lymph % (Auto) [place] % (Auto) Eos % (Auto) Baso % (Auto) Absolute Neuts (auto) Absolute Lymphs (auto) Nucleated RBC % Hypochromasia Anisocytosis APTT Sodium Potassium Chloride Carbon Dioxide Anion Gap BUN Creatinine Estim Creat Clear Calc Est GFR (MDRD) Af Amer Est GFR (MDRD) Non-Af BUN/Creatinine Ratio Glucose Lactic Acid Calcium Troponin I High Sens Urine Color Yellow Urine Clarity Sl. Cloudy Urine pH 5.0 Ur Specific [place] 1.015 Urine Protein 30 H Urine Glucose (UA) Normal Urine Ketones 5 H Urine Occult Blood 10 H Urine Nitrite Negative Urine Bilirubin 1 H Urine Urobilinogen Normal Ur Leukocyte Esterase 500 H Urine RBC 0 SEEN Urine WBC 0-5 SEEN Ur Squamous Epith Cells 0-5 SEEN Amorphous Sediment 1+ Urine Bacteria 0 SEEN Urine Mucus 0 SEEN Urine Yeast RARE Blood Type Antibody Screen Crossmatch Radiography Diagnostic Testing: Clinical Impression(s) from Imaging Studies Duplex Scan Lower Extremity Artery 07/10/21 12:53 Interpretation Summary Irregular plaque and increased velocities abnormal waveform left distal external iliac artery consistent with moderate disease Irregular plaque and increased velocity left common femoral artery with abnormal waveform consistent with moderate to severe disease. No flow noted in the left distal femoral artery with stent within the vessel and no flow. Notably diminished flow left popliteal artery and distally Ordering Physician: MD Patric Courtney Referring Physician: Ifeanyi Duong MD Performed By: Jennifer Ag, T Brain CT 07/10/21 14:45 IMPRESSION: Findings suggestive of normal pressure hydrocephalus. Electronically Signed: Erick Damico MD at 15:29 EDT , Service support , EKG Initial EKG: Interpretation: No Acute Injury Pattern, Atrial Fibrillation and Non-Specific ST Changes (diffuse T flattening) Critical Care Time Critical Care Time: Yes Critical care time (excluding procedures): 30-74 minutes (60 min), Including time spent:, Discussing w/Patient &/or Family/[place], Discussing w/Consultants, Arranging Admission or Transfer and Performing Direct Patient Care at Bedside Discharge Plan Dx/Rx/DC Orders Clinical Impression: Lower extremity arterial insufficiency, severe, left, Acute kidney injury, Anemia, Delirium, Decubitus ulcer, Occult GI bleeding, Acute hypotension Disposition Disposition: Acute Care [facility]
[2021-07-10 13:03] LABS: Absolute Lymphocyte Count 1.39 X10^3/uL (0.83-4.51); Absolute Neutrophil Count 6.2 X10^3/uL (2.0-7.7); Basophil# 0.05 X10^3/uL; Basophil% 0.6 % (0-1); Eosinophil# 0.26 X10^3/uL; Eosinophils% 3.1 % (0-5); Hematocrit 22.1 % (37-47); Hemoglobin 6.6 g/dL (12.0-15.0); Lymphocyte # 1.39 X10^3/ul (0.83-4.51); Lymphocyte % 16.4 % (19-41); Mean Corp Hgb Conc 29.9 g/dL (32-36); Mean Corpuscular Hgb 25.7 pg (27.0-32.0); Mean Platelet Vol. 10.3 fl (6.2-12.0); Monocyte# 0.52 X10^3/uL; Monocyte% 6.1 % (0-10); NRBC Flagged by Analyzer 0 % (0-5); Neutrophil % 73.2 % (47-70); POSITIVE MORPHOLOGY YES; Platelet Count 277 K/mm3 (150-450); RBC Distribution Width CV 21.1 % (11.6-14.6); RBC Distribution Width SD 64.2 fl (35.1-43.9); Red Blood Count 2.57 M/mm3 (4.2-5.4); White Blood Count 8.5 K/mm3 (4.4-11.0)
[2021-07-10 13:04] LABS: Differential Indicated SCAN CRITERIA MET
[2021-07-10 13:15] LABS: Partial Thromboplast Time 44.7 Seconds (24.1-36.2)
[2021-07-10] MEDS: HEPARIN/D5w 25,000 UNITS 25,000 UNITS/250 ML IV.SOLN. 10 UNITS IV (13:16)
[2021-07-10] MEDS: Heparin Injection (Vial) 5,000 UNIT/ML VIAL 3890 UNIT IV (13:16)
[2021-07-10 13:24] LABS: Lactic Acid 1.7 mmol/L (0.4-1.9)
[2021-07-10 13:27] LABS: Anisocytosis 1+; Hypochromasia 1+
[2021-07-10 13:43] LABS: Anion Gap 5 (5-15); BUN 54 mg/dL (7-18); Calcium,Total 7.8 mg/dL (8.5-10.1); Chloride 104 mmol/L (98-107); EST Glomerular Filtration Rate 13 mL/min (>60); Est Glom Filt Rate - Afr Amer 16 mL/min (>60); Glucose 68 mg/dL (74-106); Potassium 5.1 mmol/L (3.5-5.1); Sodium Level 140 mmol/L (136-145)
--- NOTE | 2021-07-10 14:45 | CT_ITS ---
STUDY: CT BRAIN WITHOUT CONTRAST REASON FOR EXAM: Female, 71 years old. Altered mental status/confusion RADIATION DOSAGE (If Supplied By Facility): CTDIvol = ( 44.99 ) mGy, DLP = ( 846.73 ) mGycm TECHNIQUE: Transaxial CT imaging of the brain was performed without administration of intravenous contrast material. Individualized dose optimization techniques were used for this CT. COMPARISON: Comparison is made with prior study 06/27/2021. FINDINGS: Normal soft tissue structures. Normal calvarium. There is disproportionate enlargement of the lateral and third ventricles, as compared to the extra-axial spaces. The findings suggest normal pressure hydrocephalus (NPH). There are areas of decreased attenuation within the white matter tracts of the supratentorial brain, consistent with microvascular disease changes. Stable small lacunar infarct in the right thalamus. Normal brainstem. There is mild cerebellar atrophy. There is no intracranial hemorrhage. There are no findings of an acute ischemic infarction. Atherosclerotic calcific plaques in the arteries and cavernous portions of the internal carotid arteries bilaterally. Normal visualized paranasal sinuses. CT/Brain/Head without Contrast IMPRESSION: Findings suggestive of normal pressure hydrocephalus. Electronically Signed: Erick Damico MD at 15:29 EDT , Service support ,
[2021-07-10 15:08] LABS: Bacteria 0 SEEN /hpf (None Seen); Mucous, Urine 0 SEEN /hpf (<or=2+); Red Blood Cells-Urine 0 SEEN /hpf (0-5)
[2021-07-10 15:16] LABS: Color, Urine Yellow (Yellow); Glucose, Dipstick Normal (Normal); Ketone-Dipstick 5 mg/dl (Negative); Leukocyte Esterase-Dipstick 500 /ul (Negative); Nitrite-Dipstick Negative (Negative); Occult Blood-Urine 10 /ul (Negative); Protein-Dipstick 30 mg/dl (Negative); Specific Gravity, Urine 1.015 (1.002-1.030); Urine Bilirubin Dipstick 1 mg/dL (Negative); Urine Clarity Sl. Cloudy (Clear); Urine Urobilinogen Normal (Normal)
[2021-07-10 15:23] LABS: White Blood Cells 0-5 SEEN /hpf (0-5); Yeast-Urine RARE /hpf (None Seen)
[2021-07-10 15:24] LABS: Amorphous Sediment 1+; Squamous Epithelial Cells - UA 0-5 SEEN /hpf (5-10)
[2021-07-10 15:24] LABS: Troponin-I HS 122 pg/mL (3.0-54.0)
--- NOTE | 2021-07-10 17:31 | NURSING ---
DR CHEPE DELUNA
--- NOTE | 2021-07-10 17:56 | NURSING ---
ICU CHEPE HYPOTENSION, DELIRIUM, ART, ANEMIA, ART INSUFFICIENCY LLE
--- NOTE | 2021-07-10 18:02 | NURSING ---
ICU 2
[2021-07-10] MEDS: 0.9% Normal Saline 1,000 ML 999 ML IV (18:09)
--- NOTE | 2021-07-10 18:21 | HP.PCM.HOS_ITS ---
HPI - General General Date of Admission: 07/10/21 Date of Service: 07/10/21 Chief Complaint: Foot discoloration HPI Narrative TATIANA DICKEY, is a 71 F who presented to the emergency department at [facility] on 07/10/2021 with discoloration of her feet left foot. She has multiple comorbidities and multiple hospitalizations. She evidently was enrolled in hospice but this was revoked and she is currently following with palliative care. According to the EMS she is bedridden and has a home health nurse. It is unknown how long her foot has appeared the way it did on arrival or when the color change although discussion with family per the ER physician is documented as it being more acute. No family is available upon my arrival to the room and the patient is obtunded and only moans with my exam. Upon arrival she was started on a heparin drip given the appearance of her foot and an arterial duplex of the lower extremity was a teen which showed occlusion of the femoral artery stent and very little if any blood flow distal to the popliteal vessels. Objectively this looks to be more chronic than acute. Evidently the daughter arrived later into the hospitalization and this information is obtained per ER documentation. She evidently had a hip fracture at [place] in May and was transferred to [facility] in [place] where she had surgery but is now not able to walk and bedridden. She had been on Plavix but they took her off of that when they performed her surgery and she has been off since. Prior to arrival she evidently had been confused for approximately 3 days which is not baseline. The daughter noticed more color change in her foot evidently yesterday. She also has a sacral pressure ulcer for which she was recently admitted and polymicrobial organisms grew out of cultures. Per the daughter the patient does not want return to her fci. Diverting ostomy was perfor med because she is bedridden and had multiple sacral pressure wounds. Per the daughter she evidently had been eating less and her ostomy output had been less than previously because of this. The case was reviewed by the ER physician with Dr. Tobias as he has been involved in her previous care and he agreed that the clinical scenario is overall dire and that she is likely not having an acute ischemic event as she is not having pain in that extremity and this is a chronic process that is progressing. He also indicated that no further intervention would be indicated with regards to vascular surgery especially with her current renal function which is markedly elevated compared to baseline. Her heparin drip had to be discontinued because of a guaiac positive stool and a hemoglobin of 6.6 on presentation which is dramatically different from her previous. Given her hemoglobin 2 units of packed red blood cells were ordered and transfusion had been initiated. Comfort care was discussed with the patient's family by the ER physician and they indicated she had been on hospice previously but they were not happy with hospice care that she was getting so they revoked hospice at that time and are continuing to have palliative care on board and switching to [facility] palliative care group which they had not done yet. The family is evidently interested in her having a PEG tube if needed but this was strongly discouraged by the ER physician. Her baseline CODE STATUS is DNR CCA but per documentation the family is reasonable about the fact that the patient is in grave danger of dying and are accepting of that. They would like her to receive further medical care at this time. She has been afebrile with normal heart rates but marked hypotension in the emergency department which appears to be slowly responding to fluid boluses. Her respiratory rate and oxygen saturations are stable with minimal support as she is only on 2 L with sats at 99%. Her hemoglobin is 6.6 and on 06/28/2021 it was 9.0. 2 units of packed red blood cells have been ordered. Her BNP shows normal electrolytes but a dramatically increased BUN and creatinine at 54 and 3.0 respectively. Her baseline BUN is 8-9 with a serum creatinine of 0.15-0.3. Her lactic acid is normal at 1.7. Her troponin is slightly elevated at 122 although I suspect this is reactive related to her volume depletion. Given her mental status a CT of her head was performed and suggest normal pressure hydrocephalus which has been present on previous CTs of her brain. Her EKG is unremarkable other than low voltage and poor R wave pr ogression. She was treated with fluid boluses x2 L and 2 units of packed red blood cells have been ordered with the initial unit being transfused upon my exam. Again no family was at bedside for me to discuss the case with. [facility] Medical History Atrial fibrillation CAD (coronary artery disease) Change in mental status Chronic indwelling [place] catheter Chronic neck pain Chronic pain Chronic ulcer of left heel with fat layer exposed Colostomy in place Decubitus ulcer of left heel, stage 4 Dementia Depression Dysphagia following cerebrovascular accident (CVA) Essential hypertension GERD (gastroesophageal reflux disease) Gout History of MRSA infection History of pressure ulcer Intertrochanteric fracture of left hip Left humeral fracture Neurogenic bladder On home oxygen therapy Osteoporosis PAD (peripheral artery disease) Pneumonia Pressure injury of buttock, unstageable Pressure injury of deep tissue of left heel Smoker Stroke/cerebrovascular accident Tobacco abuse Type II diabetes mellitus Vitamin D deficiency Wound infection Home Medications aspirin 81 mg PO DAILY 06/17/21 [History Last Taken 07/10/21] hydrochlorothiazide 12.5 mg PO DAILY 06/17/21 [History Last Taken 07/09/21] losartan 100 mg PO DAILY 06/17/21 [History Last Taken 07/09/21] metoprolol tartrate 12.5 mg PO BID 06/17/21 [History Last Taken 07/10/21] oxycodone 5 - 7.5 mg PO Q8H PRN PRN 06/29/21 [History Last Taken 07/10/21] levofloxacin 500 mg PO DAILY #7 tab 06/30/21 [Rx Last Taken 07/10/21] nystatin [Nyamyc] 1 applic TOPICAL BID #0 g 06/30/21 [Rx Last Taken 07/09/21] acetaminophen [Acetaminophen Extra Strength] 500 mg PO Q8H PRN 07/04/21 [History Last Taken Unknown] ipratropium-albuterol [DuoNeb] 3 ml INHALATION BID 07/10/21 [History Last Taken 07/10/21] Allergy/AdvReac Type Severity Reaction Status Date / Time amoxicillin [From Augmentin] Allergy Rash Verified 07/04/21 14:28 atorvastatin [From Lipitor] Allergy Other Verified 07/04/21 14:28 clavulanic acid Allergy Rash Verified 07/04/21 14:28 [From Augmentin] gabapentin Allergy Nausea Verified 07/04/21 14:28 lisinopril Allergy PT UNSURE Verified 07/04/21 14:28 OF REACTION mold Allergy PT UNSURE Verified 07/04/21 14:28 OF REACTION pollen extracts Allergy PT UNSURE Verified 07/04/21 14:28 OF REACTION quinapril [From Accupril] Allergy Rash Verified 07/04/21 14:28 ragweed pollen Allergy PT UNSURE Verified 07/04/21 14:28 OF REACTION simvastatin [From Zocor] Allergy PT UNSURE Verified 07/04/21 14:28 OF REACTION tramadol Allergy PT UNSURE Verified 07/04/21 14:28 OF REACTION tuberculin, purified protein Allergy PT UNSURE Verified 07/04/21 14:28 deriva OF REACTION fluoxetine AdvReac Other Verified 07/04/21 14:28 Family History Mother Tuberculosis Father Heart disease CVA (cerebral vascular accident) Sister Multiple sclerosis Brother Heart disease Surgical History History of appendectomy History of lumpectomy of right breast History of partial hysterectomy History of right-sided carotid endarterectomy Hx of bladder repair surgery Hx of tonsillectomy Social History household members: none Smoking Status: Current every day smoker tobacco type: cigarettes Tobacco: How many years used: 53 second hand exposure: Yes alcohol intake: never substance use type: does not use caffeine: Yes what type of physical activity do you participate in: none frequency: does not exercise ROS ROS Narrative Patient is obtunded and only response to noxious stimulus. No family is at bedside to assist with any review of systems. Review of Systems ROS Unobtainable: due to mental status Vital Signs Vital Signs Vital Signs: 07/10/21 12:38 07/10/21 12:57 07/10/21 13:19 Temperature 97.8 F 97.8 F Temperature Source Oral Oral Pulse Rate 93 92 Respiratory Rate 18 21 H Blood Pressure 77/49 L 83/60 L Blood Pressure Mean 58 67 Blood Pressure Source Pulse Ox 100 100 100 Oxygen Delivery Method Nasal Cannula Nasal Cannula Nasal Cannula Oxygen Flow Rate (L/min) 2 2 2 07/10/21 13:20 07/10/21 13:34 07/10/21 13:59 Temperature 98 F Temperature Source Temporal Pulse Rate 91 91 21 L Respiratory Rate 17 31 H 89 H Blood Pressure 77/56 L 84/60 L 65/53 L Blood Pressure Mean 63 68 57 Blood Pressure Source Pulse Ox 100 100 Oxygen Delivery Method Nasal Cannula Room Air Oxygen Flow Rate (L/min) 2 2 07/10/21 14:00 07/10/21 14:05 07/10/21 15:08 Temperature 98 F 98 F 98.1 F Temperature Source Temporal Temporal Temporal Pulse Rate 88 88 90 Respiratory Rate 19 H 19 H 22 H Blood Pressure 76/48 L 76/48 L 135/117 H Blood Pressure Mean 57 57 123 Blood Pressure Source Pulse Ox 96 96 96 Oxygen Delivery Method Nasal Cannula Nasal Cannula Nasal Cannula Oxygen Flow Rate (L/min) 2 2 2 07/10/21 15:37 07/10/21 16:12 07/10/21 16:31 Temperature 98.1 F Temperature Source Temporal Pulse Rate 86 86 80 Respiratory Rate 15 16 16 Blood Pressure 76/52 L 77/51 L 97/73 Blood Pressure Mean 60 59 81 Blood Pressure Source Pulse Ox 100 100 100 Oxygen Delivery Method Nasal Cannula Nasal Cannula Nasal Cannula Oxygen Flow Rate (L/min) 2 2 2 07/10/21 17:03 07/10/21 17:35 07/10/21 17:50 Temperature 98.3 F 98.9 F 98.7 F Temperature Source Temporal Temporal Temporal Pulse Rate 90 91 91 Respiratory Rate 22 H 22 H 22 H Blood Pressure 85/67 L 86/66 L 79/49 L Blood Pressure Mean 73 72 59 Blood Pressure Source Monitor Pulse Ox 100 99 100 Oxygen Delivery Method Nasal Cannula Nasal Cannula Nasal Cannula Oxygen Flow Rate (L/min) 2 2 2 07/10/21 17:59 07/10/21 18:00 Temperature 98.9 F 98.9 F Temperature Source Temporal Temporal Pulse Rate 90 92 Respiratory Rate 18 14 Blood Pressure 85/65 L 85/65 L Blood Pressure Mean 71 71 Blood Pressure Source Pulse Ox 99 99 Oxygen Delivery Method Nasal Cannula Nasal Cannula Oxygen Flow Rate (L/min) 2 2 Weight Weight: 64.9 kg Body Mass Index (BMI) 24.5 Physical Exam Const Constitutional Narrative: Elderly white female lying in bed, extremely cachectic, obtunded with only having response to noxious stimulus that consists of moaning, appears markedly malnourished with temporal wasting, multiple wounds, decreased lean body mass, no family at bedside HEENT normocephalic and head/scalp atraumatic HEENT Narrative: Significant temporal wasting, upper dentures in place, lips extremely dry with dried reddish colored fluid around her face and mouth Mouth: moist mucous membranes abnormal cracked and parched Eyes Eyes Narrative: Patient with matting around her eyes and when I try to examine she squints will not let me passively open her eyelids Neck no lymphadenopathy, supple, no JVD and no carotid bruits Neck Narrative: Trachea midline with prominent neck musculature, no thyroid enlargement Resp No normal respiratory effort, No no retractions, No no use of accessory muscles and No clear to auscultation bilaterally Resp Narrative: Diffusely diminished but no adventitious sounds at this time Auscultation: Negative for crackles, rales, rhonchi or wheezes Cardio regular rate, regular rhythm, S1 normal heart sound, S2 normal heart sound, no murmurs, no rub, no gallops, no clicks and no JVD GI normal to inspection, nondistended, normoactive bowel sounds, soft to palpation, non-tender and non-distended GI Narrative: Ostomy in left lower quadrant with no stool in the ostomy bag, visible blood at the ostomy site very slight Extremity Extremity Narrative: No clubbing left, mild left lower extremity cyanosis although skin appears pale diffusely to slightly rosen, multiple wounds, decreased pedal pulses bilaterally Peripheral Pulses: Yes pulses 2+ throughout Skin no jaundice, no petechiae and no mottling Skin Narrative: Multiple wounds, sacral pressure wounds, poor skin turgor Neuro Neuro Narrative: Obtunded, reflexes normal Psych Psych Narrative: Unable to evaluate can 2/2 to mental status Results Lab / Micro Data Result Diagrams: 07/10/21 12:50 07/10/21 12:50 Labs: Laboratory Results - last 24 hr 07/10/21 12:50: WBC 8.5, RBC 2.57 L, Hgb 6.6 L, Hct 22.1 L, MCV 86.0, MCH 25.7 L , MCHC 29.9 L, RDW Std Deviation 64.2 H, RDW Coeff of Mirza 21.1 H, Plt Count 277, MPV 10.3, Immature Gran % (Auto) 0.600, Neut % (Auto) 73.2 H, Lymph % (Auto) 16.4 L, [place] % (Auto) 6.1, Eos % (Auto) 3.1, Baso % (Auto) 0.6, Absolute Neuts (auto) 6.2, Absolute Lymphs (auto) 1.39, Nucleated RBC % 0, Hypochromasia 1+, Anisocytosis 1+ 07/10/21 12:50: Sodium 140, Potassium 5.1, Chloride 104, Carbon Dioxide 31.0, Anion Gap 5, BUN 54 H, Creatinine 3.60 H, Estim Creat Clear Calc 12.20, Est GFR (MDRD) Af Amer 16 L, Est GFR (MDRD) Non-Af 13 L, BUN/Creatinine Ratio 15.0, Glucose 68 L, Calcium 7.8 L 07/10/21 12:50: Lactic Acid 1.7 07/10/21 12:50: APTT 44.7 H 07/10/21 12:50: Troponin I High Sens 122 H* 07/10/21 14:55: Blood Type A NEGATIVE, Antibody Screen NEGATIVE, Crossmatch See Detail 07/10/21 15:00: Urine Color Yellow, Urine Clarity Sl. Cloudy, Urine pH 5.0, Ur Specific [place] 1.015, Urine Protein 30 H, Urine Glucose (UA) Normal, Urine Ketones 5 H, Urine Occult Blood 10 H, Urine Nitrite Negative, Urine Bilirubin 1 H, Urine Urobilinogen Normal, Ur Leukocyte Esterase 500 H, Urine RBC 0 SEEN, Urine WBC 0-5 SEEN, Ur Squamous Epith Cells 0-5 SEEN, Amorphous Sediment 1+, Urine Bacteria 0 SEEN, Urine Mucus 0 SEEN, Urine Yeast RARE Micro: Microbiology 07/10/21 14:55 Stool Stool Occult Blood (GARY) - Final Occult Blood Positive 07/10/21 13:05 Nasal Secretion SARS-CoV-2 Antigen (Rapid) - Final Radiology Impression Duplex Scan Lower Extremity Artery 07/10/21 12:53 Interpretation Summary Irregular plaque and increased velocities abnormal waveform left distal external iliac artery consistent with moderate disease Irregular plaque and increased velocity left common femoral artery with abnormal waveform consistent with moderate to severe disease. No flow noted in the left distal femoral artery with stent within the vessel and no flow. Notably diminished flow left popliteal artery and distally Ordering Physician: MD Patric Courtney Referring Physician: Ifeanyi Duong MD Performed By: Jennifer Ag, T Brain CT 07/10/21 14:45 IMPRESSION: Findings suggestive of normal pressure hydrocephalus. Electronically Signed: Erick Damico MD at 15:29 EDT , Service support , Assessment & Plan Assessment/Plan (1) Lower extremity arterial insufficiency, severe, left: (2) Acute kidney injury: (3) Anemia: (4) Occult GI bleeding: (5) Acute hypotension: (6) Pressure injury of buttock, unstageable: (7) Severe malnutrition: PLAN: Hypotension -Patient does not meet sepsis criteria at this time and I suspect this may be from multiple causes including anemia, dehydration, and possible infection -Patient has received 2 L of IV fluids -Continue IV fluids at 125 cc/h -Keep MAP greater than 65--> if unable will initiate pressors -2 units of packed red blood cells being transfused at this time -lactate is surprisingly normal -Infectious work-up in progress--> multiple skin sources -Blood cultures pending -We will initiate vancomycin and meropenem given penicillin allergy -May need central venous catheter if pressors need to be initiated but blood pressures seem to be improving with fluid boluses and blood transfusion -Consult critical care medicine for assistance -Admit to the ICU Left lower extremity arterial insufficiency -Appears to be chronic on ultrasound -Case discussed with Dr. Taylor by the emergency department physician who felt that she would not be a candidate for any surgical intervention and that this was likely chronic as well -We will consult vascular surgery -No heparin at this time given her anemia and guaiac positive stool Acute on chronic anemia secondary to GI bleeding -Chronic anemia secondary to chronic illness -Stool was guaiac positive -Twice daily IV PPI -We will continue aspirin at this point secondary to vascular issues but monitor hemoglobins closely -Transfuse 2 units packed red blood cells -Every 6 hour H&H x2 -Consult GI -Patient likely not a candidate for any invasive testing given poor prognosis overall EMERSON secondary to dehydration -Baseline serum creatinine is 0.15-0.3 -Current serum creatinine is 3.6 -2 fluid boluses given emergency department -We will continue IV fluids at 125 cc/h -Repeat BMP in a.m. -No need for [employer] as electrolytes are still normalized -P.o. intake has been extremely poor -Hold home antihypertensives Metabolic encephalopathy -Suspect related to hypotension/EMERSON and uremia -Patient does moan with noxious stimulus -Infectious work-up in progress Severe malnutrition -Dietitian consult -Start diet once mental status has been improved -Family at this time would be amenable to PEG placement Normal pressure hydrocephalus -This has been a chronic finding on CTs of her brain and apparently mental status at baseline is alert and oriented x3 -Would not recommend any intervention at this time unless her mental status does not improve -Monitor clinically Sacral pressure ulcer-unstageable/multiple wounds -Empiric antibiotics -Wound cultures -Consult wound care Hypertension -Hold all home antihypertensives including losartan, metoprolol, hydrochlorothiazide Mild hypoglycemia -BNP glucose was 68 on admission -Run dextrose with fluids and monitor -Patient with documented history of diabetes but most recent A1c from 03/11/2021 was 5.4 and she has not had an A1c since 2019 per our records DVT prophylaxis -SCDs as able -Avoid chemoprophylaxis secondary to GI bleed CODE STATUS -DNR CCA -Overall prognosis is extremely poor and per ER documentation family seems to be aware -Would recommend [employer] 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
--- NOTE | 2021-07-10 18:37 | PCS.PANDOC ---
PANDEMIC DOCUMENTATION INITIATED: Date: 04/29/2021 Time: 190
[2021-07-10] MEDS: 0.9% Normal Saline 1,000 ML 150 ML IV (21:02)
[2021-07-10] MEDS: 0.9% Saline Lock 10 ML Syringe IV ×2 (21:53→22:00)
[2021-07-10] MEDS: Nystatin Powder 15gm Bottle 1 APPLIC TOPICAL (22:03)
--- NOTE | 2021-07-10 23:12 | PCM.RX.CS ---
Consult Pharmacy has been consulted to manage selected antiobiotic: Vancomycin Type of Consult: New start Suspected Infection: Skin/Soft tissue Prior Doses of Antibiotics Received/Current Regimen: Medications Discontinued Medications Vancomycin HCl 1,750 mg/ (Sodium Chloride) 535 mls @ 250 mls/hr IV X1 ONE Stop: 07/10/21 22:08 Last Admin: 07/10/21 21:08 Dose: 250 mls/hr Labs: Sodium 140 mmol/L (136-145) 07/10/21 12:50 Potassium 5.1 mmol/L (3.5-5.1) 07/10/21 12:50 Chloride 104 mmol/L (98-107) 07/10/21 12:50 Carbon Dioxide 31.0 mmol/L (21.0-32.0) 07/10/21 12:50 Anion Gap 5 (5-15) 07/10/21 12:50 BUN 54 mg/dL (7-18) H 07/10/21 12:50 Creatinine 3.60 mg/dL (0.55-1.02) H 07/10/21 12:50 Est GFR (MDRD) Af Amer 16 mL/min (>60) L 07/10/21 12:50 Est GFR (MDRD) Non-Af 13 mL/min (>60) L 07/10/21 12:50 BUN/Creatinine Ratio 15.0 RATIO (10-20) 07/10/21 12:50 Glucose 68 mg/dL (74-106) L 07/10/21 12:50 Microbiology: Microbiology 07/10/21 14:55 Stool Stool Occult Blood (GARY) - Final Occult Blood Positive 07/10/21 13:05 Nasal Secretion SARS-CoV-2 Antigen (Rapid) - Final Weight used for dosin.5 kg Estimated Creatinine Clearance: 12 Goal Trough: 15-20 mcg/mL Pharmacy Plan for Drug Dosing: Initial vancomycin dose of 1750mg was given 07/10/21 @2108. Due to current CrCl<20, a random level will be drawn with the 07/12/21 morning labs, and further dosing will be determined from that result. Pharmacy Service will continue to monitor and adjust dosing as required. Follow-Up Labs: Trough Vancomycin - random Labs to be done on [date and time ordered]: 07/12/21 @0600
[2021-07-10 23:37] LABS: Hematocrit 27.9 % (37-47); Hemoglobin 8.5 g/dL (12.0-15.0)
[2021-07-10 23:57] LABS: M R Staph aureus DNA By PCR Negative (Negative); Probe Check PASS; Specimen Processing Control PASS
[2021-07-11] VITALS (27 sets, daily range): BP systolic 57–101; BP diastolic 36–80; PULSE 92–113; RESP 14–25; TEMP 36–36.2; O2SAT 98–100
[2021-07-11] MEDS: 0.9% Normal Saline 1,000 ML 150 ML IV ×3 (03:46→17:01)
[2021-07-11 05:08] LABS: Absolute Lymphocyte Count 1.14 X10^3/uL (0.83-4.51); Absolute Neutrophil Count 8.8 X10^3/uL (2.0-7.7); Basophil# 0.08 X10^3/uL; Basophil% 0.7 % (0-1); Eosinophil# 0.49 X10^3/uL; Eosinophils% 4.3 % (0-5); Hematocrit 25.3 % (37-47); Hemoglobin 7.9 g/dL (12.0-15.0); Lymphocyte # 1.14 X10^3/ul (0.83-4.51); Mean Corp Hgb Conc 31.2 g/dL (32-36); Mean Corpuscular Hgb 26.9 pg (27.0-32.0); Mean Corpuscular Volume 86.1 fL (81-99); Mean Platelet Vol. 10.2 fl (6.2-12.0); Monocyte# 0.79 X10^3/uL; NRBC Flagged by Analyzer 0 % (0-5); Neutrophil # 8.78 X10^3/uL (2.7-7.7); Neutrophil % 77.4 % (47-70); Platelet Count 207 K/mm3 (150-450); RBC Distribution Width CV 19.5 % (11.6-14.6); RBC Distribution Width SD 58.8 fl (35.1-43.9); Red Blood Count 2.94 M/mm3 (4.2-5.4); White Blood Count 11.4 K/mm3 (4.4-11.0)
[2021-07-11 05:51] LABS: ALB/GLOB Ratio 0.2 RATIO (0.9-2.4); AST(SGOT) 32 U/L (15-37); Alanine Aminotransfer ALT/SGPT 7 U/L (13-56); Albumin, Serum 0.8 g/dL (3.2-5.0); Alkaline Phosphatase 160 U/L (45-117); Anion Gap 8 (5-15); BUN 48 mg/dL (7-18); BUN/Creat Ratio 15.1 RATIO (10-20); Calcium,Total 7.2 mg/dL (8.5-10.1); Chloride 110 mmol/L (98-107); Creatinine, Serum 3.18 mg/dL (0.55-1.02); EST Glomerular Filtration Rate 15 mL/min (>60); Est Glom Filt Rate - Afr Amer 18 mL/min (>60); Estimated Creatinine Clearance 13.81 ml/min; Globulin 3.2 g/dL (2.2-4.2); Glucose 38 mg/dL (74-106); Magnesium 1.3 mg/dL (1.6-2.6); Potassium 4.5 mmol/L (3.5-5.1); Sodium Level 140 mmol/L (136-145)
--- NOTE | 2021-07-11 06:15 | CON.PCM.SX_ITS ---
Assessment & Plan Assessment/Plan (1) Lower extremity arterial insufficiency, severe, left: PLAN: Unfortunately I do not have the means to salvage the left lower extremity. I do not suspect that endovascular intervention would be successful. This could not be achieved with carbon dioxide imaging alone would be techn ically very difficult and likely requiring instrumentation not available locally. She then would likely require thrombolytic therapy during the procedure and likely in a drip form after the procedure which also is contraindicated secondary to her anemia and renal insufficiency. The amount of contrast that would be required also contraindicated secondary to her renal insufficiency. She appears to be preterminal with multiple ongoing medical issues. She is not able to communicate with me in a meaningful way. She is not able to discuss with me treatment options. I have not perceiving that currently she has a quality of life. I do not have a means of surgical intervention that would not cause harm. I additionally think she would be a poor candidate for left lower extremity above-knee amputation. Because of her general failure and edema and malnutrition and pressure sores with infection I believe that cross-contamination and wound infection and breakdown would be likely. As I discussed with I believe she is a candidate for palliative care/hospice care. Akshat Taylor M.D., F.A.C.S. HPI Consult Data Date of Consult: 07/11/21 HPI Narrative HPI Narrative: TATIANA DICKEY, is a 71 F who presents with multiple medical pr oblems. I had an extensive discussion with Dr. Courtney from the emergency room and I did not feel that I had the ability to interact under vascular care. I received a workload message for consultation today. February 11, 2019 she had a right groin exploration right common femoral endarterectomy and control of the vascular access site bleeding with a vascular patch. Previously February 11 she had ongoing abdominal pelvic right lower extremity tenogram right common femoral artery angioplasty. On February 10 she had an abdominal pelvic left lower extremity arteriogram with left superficial femoral artery 4 x 200 mm angioplasty and left mid superficial femoral artery 6 x 80 mm prot?g? stenting and left proximal common iliac angioplasty and 7 x 30 mm Rosina stenting. Unfortunately she did not show for vascular follow-ups. The concern is critical ischemia of her left foot. I concur that she has thrombosis of her left SFA and critical ischemia. She is diffusely edematous. She is cachectic. She has diffuse overwhelming pressure sores of her back. She is markedly anemic. She is in acute renal insufficiency. [facility] Medical History Atrial fibrillation CAD (coronary artery disease) Change in mental status Chronic indwelling [place] catheter Chronic neck pain Chronic pain Chronic ulcer of left heel with fat layer exposed Colostomy in place Decubitus ulcer of left heel, stage 4 Dementia Depression Dysphagia following cerebrovascular accident (CVA) Essential hypertension GERD (gastroesophageal reflux disease) Gout History of MRSA infection History of pressure ulcer Intertrochanteric fracture of left hip Left humeral fracture Neurogenic bladder On home oxygen therapy Osteoporosis PAD (peripheral artery disease) Pneumonia Pressure injury of buttock, unstageable Pressure injury of deep tissue of left heel Smoker Stroke/cerebrovascular accident Tobacco abuse Type II diabetes mellitus Vitamin D deficiency Wound infection Home Medications aspirin 81 mg PO DAILY 06/17/21 [History Last Taken 07/10/21] hydrochlorothiazide 12.5 mg PO DAILY 06/17/21 [History Last Taken 07/09/21] losartan 100 mg PO DAILY 06/17/21 [History Last Taken 07/09/21] metoprolol tartrate 12.5 mg PO BID 06/17/21 [History Last Taken 07/10/21] oxycodone 5 - 7.5 mg PO Q8H PRN PRN 06/29/21 [History Last Taken 07/10/21] levofloxacin 500 mg PO DAILY #7 tab 06/30/21 [Rx Last Taken 07/10/21] nystatin [Nyamyc] 1 applic TOPICAL BID #0 g 06/30/21 [Rx Last Taken 07/09/21] acetaminophen [Acetaminophen Extra Strength] 500 mg PO Q8H PRN 07/04/21 [History Last Taken Unknown] ipratropium-albuterol [DuoNeb] 3 ml INHALATION BID 07/10/21 [History Last Taken 07/10/21] Allergy/AdvReac Type Severity Reaction Status Date / Time amoxicillin [From Augmentin] Allergy Rash Verified 07/04/21 14:28 atorvastatin [From Lipitor] Allergy Other Verified 07/04/21 14:28 clavulanic acid Allergy Rash Verified 07/04/21 14:28 [From Augmentin] gabapentin Allergy Nausea Verified 07/04/21 14:28 lisinopril Allergy PT UNSURE Verified 07/04/21 14:28 OF REACTION mold Allergy PT UNSURE Verified 07/04/21 14:28 OF REACTION pollen extracts Allergy PT UNSURE Verified 07/04/21 14:28 OF REACTION quinapril [From Accupril] Allergy Rash Verified 07/04/21 14:28 ragweed pollen Allergy PT UNSURE Verified 07/04/21 14:28 OF REACTION simvastatin [From Zocor] Allergy PT UNSURE Verified 07/04/21 14:28 OF REACTION tramadol Allergy PT UNSURE Verified 07/04/21 14:28 OF REACTION tuberculin, purified protein Allergy PT UNSURE Verified 07/04/21 14:28 deriva OF REACTION fluoxetine AdvReac Other Verified 07/04/21 14:28 Family History Mother Tuberculosis Father Heart disease CVA (cerebral vascular accident) Sister Multiple sclerosis Brother Heart disease Surgical History History of appendectomy History of lumpectomy of right breast History of partial hysterectomy History of right-sided carotid endarterectomy Hx of bladder repair surgery Hx of tonsillectomy Social History household members: none Smoking Status: Current every day smoker tobacco type: cigarettes Tobacco: How many years used: 53 second hand exposure: Yes alcohol intake: never substance use type: does not use caffeine: Yes what type of physical activity do you participate in: none frequency: does not exercise Lab / Micro Data Result Diagrams: 07/11/21 05:00 07/11/21 05:00 Labs: Laboratory Results - last 24 hr 07/10/21 12:50: WBC 8.5, RBC 2.57 L, Hgb 6.6 L, Hct 22.1 L, MCV 86.0, MCH 25.7 L , MCHC 29.9 L, RDW Std Deviation 64.2 H, RDW Coeff of Mirza 21.1 H, Plt Count 277, MPV 10.3, Immature Gran % (Auto) 0.600, Neut % (Auto) 73.2 H, Lymph % (Auto) 16.4 L, [place] % (Auto) 6.1, Eos % (Auto) 3.1, Baso % (Auto) 0.6, Absolute Neuts (auto) 6.2, Absolute Lymphs (auto) 1.39, Nucleated RBC % 0, Hypochromasia 1+, Anisocytosis 1+ 07/10/21 12:50: Sodium 140, Potassium 5.1, Chloride 104, Carbon Dioxide 31.0, Anion Gap 5, BUN 54 H, Creatinine 3.60 H, Estim Creat Clear Calc 12.20, Est GFR (MDRD) Af Amer 16 L, Est GFR (MDRD) Non-Af 13 L, BUN/Creatinine Ratio 15.0, Glucose 68 L, Calcium 7.8 L 07/10/21 12:50: Lactic Acid 1.7 07/10/21 12:50: APTT 44.7 H 07/10/21 12:50: Troponin I High Sens 122 H* 07/10/21 14:55: Blood Type A NEGATIVE, Antibody Screen NEGATIVE, Crossmatch See Detail 07/10/21 14:55: Crossmatch See Detail 07/10/21 15:00: Urine Color Yellow, Urine Clarity Sl. Cloudy, Urine pH 5.0, Ur Specific Lynch 1.015, Urine Protein 30 H, Urine Glucose (UA) Normal, Urine Ketones 5 H, Urine Occult Blood 10 H, Urine Nitrite Negative, Urine Bilirubin 1 H, Urine Urobilinogen Normal, Ur Leukocyte Esterase 500 H, Urine RBC 0 SEEN, Urine WBC 0-5 SEEN, Ur Squamous Epith Cells 0-5 SEEN, Amorphous Sediment 1+, Urine Bacteria 0 SEEN, Urine Mucus 0 SEEN, Urine Yeast RARE 07/10/21 22:00: MRSA (PCR) Negative 07/10/21 23:30: Hgb 8.5 L, Hct 27.9 L 07/11/21 05:00: WBC 11.4 H, RBC 2.94 L, Hgb 7.9 L, Hct 25.3 L, MCV 86.1, MCH 26.9 L, MCHC 31.2 L, RDW Std Deviation 58.8 H, RDW Coeff of Mirza 19.5 H, Plt Count 207, MPV 10.2, Immature Gran % (Auto) 0.600, Neut % (Auto) 77.4 H, Lymph % (Auto) 10.0 L, [place] % (Auto) 7.0, Eos % (Auto) 4.3, Baso % (Auto) 0.7, Absolute Neuts (auto) 8.8 H, Absolute Lymphs (auto) 1.14, Nucleated RBC % 0 07/11/21 05:00: Sodium 140, Potassium 4.5, Chloride 110 H, Carbon Dioxide 22.0, Anion Gap 8, BUN 48 H, Creatinine 3.18 H, Estim Creat Clear Calc 13.81, Est GFR (MDRD) Af Amer 18 L, Est GFR (MDRD) Non-Af 15 L, BUN/Creatinine Ratio 15.1, Glucose 38 L*, Calcium 7.2 L, Magnesium 1.3 L, Total Bilirubin 0.40, AST 32, ALT 7 L, Alkaline Phosphatase 160 H, Total Protein 4.0 L, Albumin 0.8 L, Globulin 3.2, Albumin/Globulin Ratio 0.2 L 07/11/21 05:00: Phosphorus 5.0 H Micro: Microbiology 07/10/21 14:55 Stool Stool Occult Blood (GARY) - Final Occult Blood Positive 07/10/21 13:05 Nasal Secretion SARS-CoV-2 Antigen (Rapid) - Final Radiology Impression Duplex Scan Lower Extremity Artery 07/10/21 12:53 Interpretation Summary Irregular plaque and increased velocities abnormal waveform left distal external iliac artery consistent with moderate disease Irregular plaque and increased velocity left common femoral artery with abnormal waveform consistent with moderate to severe disease. No flow noted in the left distal femoral artery with stent within the vessel and no flow. Notably diminished flow left popliteal artery and distally _ Ordering Physician: MD Patric Courtney Referring Physician: Ifeanyi Duong MD Performed By: Jennifer Ag, RVT Brain CT 07/10/21 14:45 IMPRESSION: Findings suggestive of normal pressure hydrocephalus. Electronically Signed: Erick Damico MD at 15:29 EDT , Service support ,
[2021-07-11] MEDS: Dextrose 50%-Water 25 GM/50 ML DISP.SYRIN IV (06:16)
[2021-07-11] MEDS: Ipratropium/Albuterol Sulfate 3 ML AMPUL.NEB INHALATION ×2 (06:43→19:46)
[2021-07-11] MEDS: DAKIN'S SOL HALF STRENGTH (=0.25%) 1 APPLIC TOPICAL (09:51)
[2021-07-11] MEDS: HYDROmorphone 0.5 MG/0.5 ML SYRINGE IV ×3 (09:58→20:12)
[2021-07-11] MEDS: Nystatin Powder 15gm Bottle 1 APPLIC TOPICAL ×2 (09:58→21:55)
--- NOTE | 2021-07-11 10:11 | WOUNDNOTE ---
wound photo: left posterolateral lower leg
--- NOTE | 2021-07-11 10:12 | WOUNDNOTE ---
wound photo: left foot/heel
--- NOTE | 2021-07-11 10:12 | WOUNDNOTE ---
wound photo: right lower leg
--- NOTE | 2021-07-11 10:13 | WOUNDNOTE ---
wound photo: right lower leg
--- NOTE | 2021-07-11 10:13 | WOUNDNOTE ---
wound photo: sacrum/bilateral ischium
--- NOTE | 2021-07-11 10:14 | WOUNDNOTE ---
wound photo: spine
--- NOTE | 2021-07-11 10:14 | WOUNDNOTE ---
wound photo: left medial knee
--- NOTE | 2021-07-11 14:06 | CASEMGMT ---
Social Work SW met with pt family in pt room and introduced self and role. Pt dgt, granddgt, , sister, son and nephews are present in the room. SW provided support and will remain avialable should any needs arise. LINDA Cordova
--- NOTE | 2021-07-11 14:20 | CASEMGMT ---
RN CM chart review: Patient was admitted 06/27/21-06/30/21 for encephalopathy and HCAP. See RN CM assessment from 06/28/21. Patient was discharged to home with daughter who provides care. Patient was setup with [facility]. Patient had follow-up appts scheduled with wound center and PCP. Patient returned 07/10/21 to [facility] ED for foot discoloration. Patient was found to have Hgb of 6.6 and received 2 units of PRBC. Patient continues with low BP of 57/48. Hospitalist discussed care with family and SW provided emotional support. Disposition TBD by course of treatment. CM will continue to follow this patient.
--- NOTE | 2021-07-11 16:44 | CHAPLAIN ---
Type of Pastoral Visit _x__ Initial Visit ___ Follow-up Visit ___ On-call Visit ___ General Patient Visit ___ Spiritual Assessment ___ Family Conference ___ Bereavement ___ Rapid Response ___ Code Blue ___ Other (describe below) Pastoral Care Referral From ___ Patient _x__ Family ___ Nurse ___ Physician ___ Gear Cutter ___ Outpatient Therapist ___ Other (describe below) Sacrament/Intervention _x__ Active listening ___ Anointing ___ Judaism ___ Bereavement ___ Communion _x__ Neda exploration ___ _x__ Life review _x__ Prayer ___ Reconciliation ___ Sacrament of Sick _x__ Supportive presence ___ Wedding ___ Other (describe below) Pastoral Comments Met with many family members in the patient's room; pt is awake and appears to follow some of the conversation but response is very limited; daughter requests that pt be encouraged to be ready to see God and be right with Him; pt is said to have attended a [employer] years ago but has not been active for a long time; spoke to pt about her relationship with God and asked permission to pray with her; family gathered around the bed for prayer; spoke calmly and compassionately to pt and to family for support of all; later spoke with daughter in hallway and indicated further support as needed
--- NOTE | 2021-07-11 17:04 | PN.HOSP_ITS ---
Subjective Subjective Patient was seen and examined today in ICU, she remains hypotensive today, I had a discussion about her care with her POA who is her daughter, patient has multiple medical problems including dementia, after conferring with the daughter, we have decided to keep the patient on antibiotics for now, there is no surgery for the ischemia of the patient's left lower leg, I think this will ultimately result in her . Patient's daughter understands this, the patient's family members (multiple family members) have been in the patient's room for most of the day. At this point, I have made the patient a PCU patient and I will continue to administer antibiotics, I feel that this is not going to ultimately help the patient however but I will talk with the family tomorrow about withdrawing further care if they desire. I did talk with vascular surgery today and they felt that the patient was not a candidate for any revascularization or amputation of the left lower leg. Objective Data Objective Data Vital Signs: Vital Signs Temp Pulse Resp BP Pulse Ox 96.8 F L 105 H 22 H 69/47 L 100 07/11/21 04:00 07/11/21 13:00 07/11/21 13:00 07/11/21 13:00 07/11/21 13:00 Oxygen Flow Rate (L/min) 2 Oxygen Delivery Method Nasal Cannula Weight: 63.6 kg Body Mass Index (BMI) 23.5 Intake & Output: Intake and Output for Last 24 Hours 07/09/21 07/10/21 07/11/21 23:59 23:59 23:59 Intake Total 2692.17 / 2692.17 3222.5 / 3222.5 Output Total 325 / 325 0 / 0 Balance 2367.17 / 2367.17 3222.5 / 3222.5 Lab / Micro Data Result Diagrams: 07/11/21 05:00 07/11/21 05:00 Labs: Laboratory Results - last 24 hr 07/10/21 14:55: Blood Type A NEGATIVE, Antibody Screen NEGATIVE, Crossmatch See Detail 07/10/21 14:55: Crossmatch See Detail 07/10/21 22:00: MRSA (PCR) Negative 07/10/21 23:30: Hgb 8.5 L, Hct 27.9 L 07/11/21 05:00: WBC 11.4 H, RBC 2.94 L, Hgb 7.9 L, Hct 25.3 L, MCV 86.1, MCH 26.9 L, MCHC 31.2 L, RDW Std Deviation 58.8 H, RDW Coeff of Mirza 19.5 H, Plt Count 207, MPV 10.2, Immature Gran % (Auto) 0.600, Neut % (Auto) 77.4 H, Lymph % (Auto) 10.0 L, [place] % (Auto) 7.0, Eos % (Auto) 4.3, Baso % (Auto) 0.7, Absolute Neuts (auto) 8.8 H, Absolute Lymphs (auto) 1.14, Nucleated RBC % 0 07/11/21 05:00: Sodium 140, Potassium 4.5, Chloride 110 H, Carbon Dioxide 22.0, Anion Gap 8, BUN 48 H, Creatinine 3.18 H, Estim Creat Clear Calc 13.81, Est GFR (MDRD) Af Amer 18 L, Est GFR (MDRD) Non-Af 15 L, BUN/Creatinine Ratio 15.1, Glucose 38 L*, Calcium 7.2 L, Magnesium 1.3 L, Total Bilirubin 0.40, AST 32, ALT 7 L, Alkaline Phosphatase 160 H, Total Protein 4.0 L, Albumin 0.8 L, Globulin 3.2, Albumin/Globulin Ratio 0.2 L 07/11/21 05:00: Phosphorus 5.0 H Micro: Microbiology 07/10/21 14:55 Stool Stool Occult Blood (GARY) - Final Occult Blood Positive 07/10/21 13:05 Nasal Secretion SARS-CoV-2 Antigen (Rapid) - Final Physical Exam Const Constitutional Narrative: Patient appears moribund, she cries out in pain but is unable to tell me where she is hurting General Appearance: cooperative, well kempt and well developed Orientation / Consciousness: awake, oriented to person, oriented to place and oriented to time HEENT normocephalic and head/scalp atraumatic Head and Scalp: normocephalic Eyes EOMs intact bilaterally and conjunctivae normal Neck nuchal rigidity, no JVD and thyroid normal General: trachea midline Resp normal respiratory effort, no retractions, no use of accessory muscles and clear to auscultation bilaterally Auscultation: Negative for rales, rhonchi or wheezes Cardio regular rate, regular rhythm, S1 normal heart sound, S2 normal heart sound, no murmurs, no rub, no gallops and no clicks GI normal to inspection, nondistended, normoactive bowel sounds, soft to palpation, non-tender and non-distended Extremity Extremity Narrative: Patient's left lower leg is cold and ecchymotic Skin Skin Narrative: There is an extensive pressure injury to the patient's sacral area that is chronic in nature and cannot be staged General Skin Exam: no breakdown Neuro Neuro Narrative: Patient is lethargic and somnolent, she is confused and is crying out frequently Psych thought process normal Psych Narrative: Patient is confused, she is crying out frequently Assessment & Plan Assessment/Plan (1) Lower extremity arterial insufficiency, severe, left: PLAN: 1. Acute left lower extremity arterial insufficiency resulting in ischemia-again, there is no viable solution to this problem, this problem will ultimately result in the patient's . IV antibiotics will be continued at this time, the family is aware that the patient has an extremely poor prognosis. 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 Patient is a DNR CC arrest without intubation. Charges/Coding Visit Charges Inpatient E&M: 53440 Subs Hosp L2
[2021-07-12] VITALS (15 sets, daily range): BP systolic 63–132; BP diastolic 34–104; PULSE 42–112; RESP 17–30; TEMP 36.1–37.3; O2SAT 85–100
[2021-07-12] MEDS: HYDROmorphone 0.5 MG/0.5 ML SYRINGE IV (00:02)
[2021-07-12] MEDS: 0.9% Normal Saline 1,000 ML 150 ML IV ×3 (00:02→16:40)
[2021-07-12 04:04] LABS: Absolute Lymphocyte Count 1.11 X10^3/uL (0.83-4.51); Absolute Neutrophil Count 8.9 X10^3/uL (2.0-7.7); Basophil# 0.05 X10^3/uL; Basophil% 0.4 % (0-1); Eosinophil# 0.24 X10^3/uL; Eosinophils% 2.1 % (0-5); Hematocrit 22.5 % (37-47); Hemoglobin 6.7 g/dL (12.0-15.0); Lymphocyte # 1.11 X10^3/ul (0.83-4.51); Lymphocyte % 9.9 % (19-41); Mean Corp Hgb Conc 29.8 g/dL (32-36); Mean Corpuscular Hgb 26.3 pg (27.0-32.0); Mean Corpuscular Volume 88.2 fL (81-99); Monocyte# 0.81 X10^3/uL; Monocyte% 7.2 % (0-10); NRBC Flagged by Analyzer 0 % (0-5); Neutrophil # 8.93 X10^3/uL (2.7-7.7); Neutrophil % 79.5 % (47-70); POSITIVE MORPHOLOGY YES; Platelet Count 178 K/mm3 (150-450); RBC Distribution Width CV 20.2 % (11.6-14.6); RBC Distribution Width SD 62.8 fl (35.1-43.9); Red Blood Count 2.55 M/mm3 (4.2-5.4); White Blood Count 11.2 K/mm3 (4.4-11.0)
[2021-07-12 04:23] LABS: Differential Indicated SCAN CRITERIA MET
[2021-07-12 04:27] LABS: Vancomycin, Random Level 24.4 ug/mL (0.0-15.0)
[2021-07-12 04:31] LABS: Anisocytosis 1+; Differential Comment SCANNED; Hypochromasia 1+; Microcytosis 1+
[2021-07-12 04:36] LABS: Anion Gap 7 (5-15); BUN 42 mg/dL (7-18); BUN/Creat Ratio 15.1 RATIO (10-20); Calcium,Total 6.8 mg/dL (8.5-10.1); Chloride 116 mmol/L (98-107); Creatinine, Serum 2.79 mg/dL (0.55-1.02); EST Glomerular Filtration Rate 18 mL/min (>60); Est Glom Filt Rate - Afr Amer 21 mL/min (>60); Estimated Creatinine Clearance 15.74 ml/min; Glucose 28 mg/dL (74-106); Potassium 3.8 mmol/L (3.5-5.1); Sodium Level 145 mmol/L (136-145)
[2021-07-12] MEDS: Dextrose 50%-Water 25 GM/50 ML DISP.SYRIN IV ×2 (05:01→05:30)
[2021-07-12 05:26] LABS: Bedside Glucose 60 mg/dL (70-110)
[2021-07-12 05:50] LABS: Bedside Glucose 110 mg/dL (70-110)
[2021-07-12] MEDS: Ipratropium/Albuterol Sulfate 3 ML AMPUL.NEB INHALATION ×2 (06:42→14:55)
--- NOTE | 2021-07-12 06:52 | PCM.RX.CS ---
Consult Pharmacy has been consulted to manage selected antiobiotic: Vancomycin Type of Consult: Follow-up Suspected Infection: Skin/Soft tissue Prior Doses of Antibiotics Received/Current Regimen: 1750MG VANCOMYCIN 07/10/2021 @ 2108 Labs: Sodium 145 mmol/L (136-145) 07/12/21 03:55 Potassium 3.8 mmol/L (3.5-5.1) 07/12/21 03:55 Chloride 116 mmol/L (98-107) H 07/12/21 03:55 Carbon Dioxide 22.0 mmol/L (21.0-32.0) 07/12/21 03:55 Anion Gap 7 (5-15) 07/12/21 03:55 BUN 42 mg/dL (7-18) H 07/12/21 03:55 Creatinine 2.79 mg/dL (0.55-1.02) H 07/12/21 03:55 Est GFR (MDRD) Af Amer 21 mL/min (>60) L 07/12/21 03:55 Est GFR (MDRD) Non-Af 18 mL/min (>60) L 07/12/21 03:55 BUN/Creatinine Ratio 15.1 RATIO (10-20) 07/12/21 03:55 Glucose 28 mg/dL (74-106) L* 07/12/21 03:55 Random Vancomycin 24.4 ug/mL (0.0-15.0) H 07/12/21 03:55 Microbiology: Microbiology 07/10/21 14:55 Stool Stool Occult Blood (GARY) - Final Occult Blood Positive 07/10/21 13:05 Nasal Secretion SARS-CoV-2 Antigen (Rapid) - Final Weight used for dosin.5 kg Goal Trough: 15-20 mcg/mL Pharmacy Plan for Drug Dosing: RANDOM VANCOMYCIN LEVEL WITH MORNING LABS FOR 07/13/21 Pharmacy Service will continue to monitor and adjust dosing as required. Follow-Up Labs: Trough Vancomycin Labs to be done on [date and time ordered]: 07/13/21 @ 0600
--- NOTE | 2021-07-12 08:10 | NURSING ---
This RN attempted to speak to patients granddaughter about hospital visitation policy. This RN asked the patient if anyone has spoken to her about visitation hour and policy, the granddaughter appeared annoyed with the question and stated yes alot of people have told us, Dr. Guerrier said we could visit. This RN clarified Dr. Mi? She stated she doesn't know his name and he is moving her to a different floor so we don't have to deal with this. This RN informed her that this is hospital wide policy and that exceptions would be made if patient was made comfort care or hospice. The granddaughter then said that the patient is a special circumstance. She continued to appear aggressive with this RN and annoyed with conversation, then left the room. Patient at this time is not comfort care or hospice. Will follow up with Dr. Mi and social work.
[2021-07-12] MEDS: Nystatin Powder 15gm Bottle 1 APPLIC TOPICAL (10:57)
[2021-07-12] MEDS: DAKIN'S SOL HALF STRENGTH (=0.25%) 1 APPLIC TOPICAL (11:20)
--- NOTE | 2021-07-12 11:20 | CASEMGMT ---
Social Work SW met with pt dgt Chloé and granddaughter Desi in pt room to discuss care goals. SW allowed them to discuss their feelings surrounding pt illness and care over the last several months. Emotional support provided. SW inquired about their willingness for hospice or palliative medicine. Chloé states that he did have [facility], then transitioned to hospice services with [facility]. Family was unhappy with this service and revoked hospice services through [facility]. Family did speak with the home health care SW regarding starting palliative medicine through the [facility] but this has not been established yet. Chloé did agree that this avenue of support could be pursued. SIVA Lepe updated and to contact [facility] home health regarding palliative referral. SW did speak with [facility] and cancelled referral that was made earlier this morning. CHRISSY remains available for any addition needs of family. LINDA Cordova
--- NOTE | 2021-07-12 11:26 | WOUNDNOTE ---
Nursing had just repositioned patient. will change dressings later today so patient can rest for a while after being bathed and turned.
--- NOTE | 2021-07-12 14:41 | WOUNDNOTE ---
Many family members present at bedside.
[2021-07-12] MEDS: 0.9% Saline Lock 10 ML Syringe IV (15:51)
[2021-07-12] MEDS: LORazepam 2 MG/ML Syringe 0.5 MG IV ×2 (15:51→20:25)
--- NOTE | 2021-07-12 17:12 | CASEMGMT ---
Social Work Note This worker had made an APS report the last time pt was at [facility]. CHRISSY placed a call to Brain at [facility] and updated her that pt is at [facility]. Brain asked to be updated on when pt discharges. SW to continue to follow. Jennifer Newman RESIDENTIAL FRAMING CARPENTER, DIRECTOR OF INVESTIGATIONS
--- NOTE | 2021-07-12 19:46 | PN.HOSP_ITS ---
Subjective Subjective Patient was seen and examined today, I had a long conversation by phone with the patient's daughter, she asked me the same questions she asked me yesterday-she wonders why the patient cannot have an amputation of her left lower leg, she wonders why the patient cannot have IV nutrition, I explained to her that the p atient is actively dying and that I did not think it was appropriate to start the patient on TPN, I also stated that if the patient was taken to surgery she would likely on the operating table-the daughter felt that this might be better than just letting her pass away on the floor. I explained to her that it would not be right to subject the patient to a surgery that would not be of any benefit-I feel the patient would from her comorbidities and likely sepsis. I told the family that I would move the patient to a medical floor today so that they could spend more time with her in the room. Objective Data Objective Data Vital Signs: Vital Signs Temp Pulse Resp BP Pulse Ox 99.2 F H 108 H 22 H 85/50 L 92 07/12/21 13:30 07/12/21 14:55 07/12/21 14:55 07/12/21 13:30 07/12/21 13:30 Oxygen Flow Rate (L/min) 4 Oxygen Delivery Method Nasal Cannula Weight: 63.6 kg Body Mass Index (BMI) 23.5 Intake & Output: Intake and Output for Last 24 Hours 07/10/21 07/11/21 07/12/21 23:59 23:59 23:59 Intake Total 2692.17 / 2692.17 4332.5 / 4332.5 2242.5 / 2242.5 Output Total 325 / 325 0 / 0 105 / 105 Balance 2367.17 / 2367.17 4332.5 / 4332.5 2137.5 / 2137.5 Lab / Micro Data Result Diagrams: 07/12/21 03:55 07/12/21 03:55 Labs: Laboratory Results - last 24 hr 07/12/21 03:55: Random Vancomycin 24.4 H 07/12/21 03:55: WBC 11.2 H, RBC 2.55 L, Hgb 6.7 L, Hct 22.5 L, MCV 88.2, MCH 26.3 L, MCHC 29.8 L, RDW Std Deviation 62.8 H, RDW Coeff of Mirza 20.2 H, Plt Count 178, MPV 10.0, Immature Gran % (Auto) 0.900, Neut % (Auto) 79.5 H, Lymph % (Auto) 9.9 L, [place] % (Auto) 7.2, Eos % (Auto) 2.1, Baso % (Auto) 0.4, Absolute Neuts (auto) 8.9 H, Absolute Lymphs (auto) 1.11, Nucleated RBC % 0, Differential Comment SCANNED, Hypochromasia 1+, Anisocytosis 1+, Microcytosis 1+ 07/12/21 03:55: Sodium 145, Potassium 3.8, Chloride 116 H, Carbon Dioxide 22.0, Anion Gap 7, BUN 42 H, Creatinine 2.79 H, Estim Creat Clear Calc 15.74, Est GFR (MDRD) Af Amer 21 L, Est GFR (MDRD) Non-Af 18 L, BUN/Creatinine Ratio 15.1, Glucose 28 L*, Calcium 6.8 L 07/12/21 05:18: POC Glucose 60 L 07/12/21 05:46: POC Glucose 110 Micro: Microbiology 07/10/21 14:55 Stool Stool Occult Blood (GARY) - Final Occult Blood Positive 07/10/21 13:05 Nasal Secretion SARS-CoV-2 Antigen (Rapid) - Final Physical Exam Const Constitutional Narrative: Patient is moribund, she does not respond to verbal cues, she does respond to some painful stimuli General Appearance: cooperative, well kempt and well developed Orientation / Consciousness: awake, oriented to person, oriented to place and oriented to time HEENT normocephalic and head/scalp atraumatic Head and Scalp: normocephalic Neck nuchal rigidity, no JVD and thyroid normal General: trachea midline Resp normal respiratory effort, no retractions, no use of accessory muscles and clear to auscultation bilaterally Resp Narrative: Patient has shallow respirations Auscultation: Negative for rales, rhonchi or wheezes Cardio regular rate, regular rhythm, S1 normal heart sound, S2 normal heart sound, no murmurs, no rub and no gallops GI normal to inspection, nondistended, normoactive bowel sounds, soft to palpation, non-tender and non-distended Extremity Extremity Narrative: Patient's left lower leg is cyanotic and cold to the touch Skin General Skin Exam: no breakdown Neuro Neuro Narrative: Patient is minimally responsive to painful stimuli Psych thought process normal Psych Narrative: Patient does not respond to verbal cues, she responds vaguely to painful stimuli Assessment & Plan Assessment/Plan (1) Lower extremity arterial insufficiency, severe, left: PLAN: 1. Acute left lower extremity arterial insufficiency resulting in ischemia-again, there is no viable solution to this problem, this problem will ultimately result in the patient's . IV antibiotics will be continued at this time-I have stopped the patient's vancomycin-I do not think this is of benefit to the patient, the family is aware that the patient has an extremely poor prognosis. They wish the patient to be kept comfortable. #2 acute on chronic anemia-patient received 1 unit of packed red blood cells so far, patient's hemoglobin today was 6.7, I have decided not to transfuse patient further at this time due to the fact that she appears to be actively dying. 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 Patient is a DNR CC arrest without intubation. Charges/Coding Visit Charges Inpatient E&M: 96574 Subs Hosp L2
[2021-07-13] VITALS: PULSE 42; O2SAT 85
[2021-07-13] MEDS: 0.9% Normal Saline 1,000 ML 150 ML IV (01:40)
[2021-07-13] MEDS: LORazepam 2 MG/ML Syringe 0.5 MG IV (01:40)
[2021-07-13] MEDS: Nystatin Powder 15gm Bottle 1 APPLIC TOPICAL (02:00)
--- NOTE | 2021-07-13 03:53 | NURSING ---
Patient passed at this time. Family present. Confirmed with Bri ALMODOVAR.
--- NOTE | 2021-07-13 11:58 | EXP.PCM_ITS ---
Preliminary Cause of Preliminary Cause of Preliminary Cause of : Septic shock due to acute left lower leg arterial insufficiency on chronic peripheral vascular disease resulting in ischemic left leg Date of Admission: 07/10/21 Date of : 07/13/21 Principle Diagnosis Time of 0353 on 07/13/2021. Final diagnosis: #1 ischemic left lower leg secondary to peripheral vascular disease #2 septic shock secondary to #1 #3 acute on chronic anemia-etiology unclear, requiring blood transfusion #4 large pressure injury of the sacral area-chronic in nature, and unstageable #5 severe protein and caloric malnutrition #6 Alzheimer's dementia #7 coronary artery disease #8 peripheral vascular disease #9 acute renal failure Problem List: Active and Suspected Problems (Updated 07/10/21 @ 17:[address] Patric Courtney MD) Lower extremity arterial insufficiency, severe, left (Acute) Acute kidney injury (Acute) Anemia (Acute) Delirium (Acute) Occult GI bleeding (Acute) Acute hypotension (Acute) Pressure injury of buttock, unstageable (Acute) Severe malnutrition (Acute) Decubitus ulcer (Acute) Hospital Course This 71-year-old white female was seen in the emergency room at [facility] after being brought in by the family due to discoloration of her left lower leg. Patient lives at home with her family and is severely debilitated due to dementia and chronic medical conditions. Evaluation in the ER included an arterial duplex of the left lower extremity which showed occlusion of the femoral artery stent and very little of any blood flow to the vessels distal to the popliteal artery. Patient was hypotensive on evaluation, her creatinine was elevated at 3.60 with a BUN of 54. Patient's hemoglobin was low at 6.6, white blood cell count was normal. EKG revealed atrial fibrillation. The emergency room physician talked with the family of the patient and broached the topic of comfort care, patient's family declined to get hospice involved with the patient's care but they agreed that the patient is a DNR CC arrest. Patient was given fluid boluses in the emergency room resulting in elevation of the patient's blood pressure only for short period of time. Patient was lethargic and minimally responsive. Patient was admitted to the [facility], further discussions were carried out with the patient's POA who agreed that the patient should be treated but have a DNR CC arrest status with no intubation. I had multiple discussions with the patient's POA and we finally agreed that the patient should be kept comfortable, her antibiotics were continued although it was evident that the patient had an ischemic left lower leg and the patient was then septic shock secondary to the limb ischemia. General surgery saw the patient and declined to intervene surgically due to the patient's moribund terminal status. Patient was moved out of the ICU to the general medical floor for comfort measures were continued. On 07/13/2021 at 0353 hours, the patient was pulseless with dilated pupils, she was pronounced at that time. Visit Charges Inpatient E&M: 49180 Disch Hosp
--- NOTE | 2021-07-15 10:03 | CASEMGMT ---
Social Work Note SW called [facility] with [employer] and left message that pt has . Jennifer Newman [employer], [employer]
== END 2021-07-13 06:18 | DRG 299 ==
LOC: ED 17:20 → ICU 17:57 → MS3 07-12 13:17
PROVIDERS: Nurse Practitioner Family; Admitting Provider Internal Medicine; Emergency Provider Emergency Medicine; PCP Family Medicine; Visit Provider Internal Medicine
DX: E11.51 Type 2 diabetes mellitus with diabetic peripheral angiopathy without gangrene (principal); A41.9 Sepsis, unspecified organism; R65.21 Severe sepsis with septic shock; I70.222 Atherosclerosis of native arteries of extremities with rest pain, left leg; E43 Unspecified severe protein-calorie malnutrition; G93.41 Metabolic encephalopathy; K92.2 Gastrointestinal hemorrhage, unspecified; N17.9 Acute kidney failure, unspecified; G91.2 (Idiopathic) normal pressure hydrocephalus; L89.150 Pressure ulcer of sacral region, unstageable; G30.9 Alzheimer's disease, unspecified; F02.80 Dementia in other diseases classified elsewhere, unspecified severity, without behavioral disturbance, psychotic disturbance, mood disturbance, and anxiety; Z68.23 Body mass index [BMI] 23.0-23.9, adult; I25.10 Atherosclerotic heart disease of native coronary artery without angina pectoris; I48.0 Paroxysmal atrial fibrillation; K21.9 Gastro-esophageal reflux disease without esophagitis; I10 Essential (primary) hypertension; I69.391 Dysphagia following cerebral infarction; D63.8 Anemia in other chronic diseases classified elsewhere; R13.10 Dysphagia, unspecified; F17.210 Nicotine dependence, cigarettes, uncomplicated; E86.0 Dehydration; E11.649 Type 2 diabetes mellitus with hypoglycemia without coma; Z66 Do not resuscitate; Z79.899 Other long term (current) drug therapy; Z79.82 Long term (current) use of aspirin; Z74.01 Bed confinement status; Z93.3 Colostomy status
CPT/HCPCS: 36415; 36569; 70450; 80048; 80053; 80202; 81001; 82274; 82962; 83605; 83735; 84100; 84484; 85014; 85018; 85025; 85730; 86850; 86900; 86901; 86920; 86922; 87426; 87641; 93005; 93926; 94640; 99285; J2185; J7030; J7040; J7050; P9016; A4216